=== PATIENT | female | born 1950 | race Caucasian/White ===

== ENCOUNTER 2017-02-09 17:26 | Inpatient (IN) | payer OTHER, MEDICAID, MEDICARE ==
--- NOTE | 2017-02-09 20:05 | ED Physician Chart ---
Chief Complaint/HPI - Patient Information Date Seen:: 02/09/17 Time Seen:: 18:00 Chief Complaint:: Pt. presents with abd. pain and vomiting. Allergies:: Allergies Allergy/AdvReac Type Severity Reaction Status Date / Time No Known Allergies Allergy Verified 02/09/17 17:43 Vitals:: Vital Signs - 8 hr 02/09/17 02/09/17 17:43 18:54 Temp 100.1 F 100 F HR 132 141 RR 25 22 BP 106/76 100/75 O2 Sat % 96 96 Historian:: Patient, EMS Review of Systems - Review of Systems General/Constitutional: No fever Skin: Other (L knee wound appears bruised. Now incision is closed.) Head: No headache Neck: No neck pain Cardio Vascular: No chest pain, No palpitations Pulmonary: No SOB, No cough GI: No vomiting, Pain G/U: No dysuria Musculoskeletal: Bone or joint pain (L knee. 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 was also oon Levofloxacin and enalapril) Social History: Non Smoker, No Alcohol Surgical History: CABG, other (recent knee surg.. Pt. denies any abd. surg, " no mas la rodilla".) Medication: Reviewed (tylenol, diflucan, ms, zofran, percodet, pantoprazoleZosyn , vancomycin) Physical Exam - Physical Examination General/Constitutional: Awake, Well-developed, well-nourished Eyes: Lids, conjuctiva normal, PERRL, EOMI Other Skin comments:: L Knee bruising but closed along incision. No drainage. ENMT: External ears, nose nl Neck: Nontender, Full ROM w/o pain Respiratory: Nl effort/Exclusion, Clear to Auscultation, No Wheeze/Rhonchi/Rales Cardio Vascular: RRR, No murmur, gallop, rubs GI: No tenderness/rebounding/guarding : No CVA tenderness Other Extremities comments:: L knee incision closed. Neuro/Psych: Alert/oriented, Normal motor strength, Judgement/insight normal, No focal deficits Labs/Radiology/EKG Results - Lab Results Results: EKG sinus tach 136, LVH with L axis. No acute ST changes. CXR unremarkable. Pt. had vomiting. Zofran given. CBC shows WBC 16.9 with nl. H/H UA unremarkable. CT shows "distended GB". No was severe DJD, and 5 cm umbilical hernia. Cardiac Markers nl. Lactic Acid normal. Amylase and Lipase nl. PT = 12/3. {TT = 25/6 CMP shows BUN/creat = 32/1.1 US of GB technically difficult study, but no obvious stones. ED Septic Shock - . Is Septic Shock (SBP<90, OR Lactate>4 mmol\\L) present?: No - <6hrs of presentation: Vital Signs: Vital Signs - 8 hr 02/09/17 02/09/17 17:43 18:54 Temp 100.1 F 100 F HR 132 141 RR 25 22 BP 106/76 100/75 O2 Sat % 96 96 Assessment of Lungs: Lung CTA bilateral Assessment of Heart: RRR EKG Interpretation: No ST elevation Capillary refill evaluation: Capillary refill < 2 secs Skin Exam: Warm, Dry Comment: Pt. does have leukocytosis and tachycardia. US was not a good study secondary to gas. Reassessment (Disposition) - Reassessment Reassessment Condition:: Improved - Diagnosis Diagnosis:: Dx: Acute abdominal pain, leukocytosis and distended gall bladder, possible cholecystitis - Patient Disposition Discharge/Transfer:: Acute Care w/in this hosp Accepting Physician:: Dr. Thomas Time Called:: 2330 Time Responded:: 23:34 Discussion with Medical Provider:: Discussed 16.9 WBC and tachycardia. Gave dose of Zofran and Zosyn. will admit. He will call in orders. Condition at Disposition:: Critical ED Discharge Plan - Patient Disposition Admit/Discharge/Transfer: Acute Care w/in this hosp Condition at Disposition: Guarded
[2017-02-09] MEDS ORDERED: Sodium Chloride 0.9% 1,000 ML IV ONE (20:07)
[2017-02-09 20:42] LABS: HEMATOCRIT 44.1 % (35.0-45.0); HEMOGLOBIN 14.2 gm/dL (11.7-16.1); MEAN CELL VOLUME 84.7 fl (81-100); MEAN CORPUSCULAR HEMOGLOBIN 27.3 pg (27.0-31.0); MEAN CORPUSCULAR HGB CONC 32.3 pg (28.0-36.0); MEAN PLATELET VOLUME 8.4 fl; PLATELET COUNT 208 Th/cmm (150-400); RED CELL DISTRIBUTION WIDTH 18.2 % (11.5-20.0)
[2017-02-09 20:47] LABS: WHITE BLOOD COUNT 16.9 Th/cmm (4.8-10.8)
[2017-02-09 20:51] LABS: INR 1.17 (0.5-1.4); PROTHROMBIN TIME (TEST) 12.3 SECONDS (9.5-11.5)
[2017-02-09 20:58] LABS: ALB/GLOB RATIO 0.7 (1.0-1.8); ALKALINE PHOSPHATASE 227 U/L (34-104); AMYLASE SERUM 49 U/L (29-103); ANION GAP 17.7 (7.0-16.0); BILIRUBIN,TOTAL 0.9 mg/dL (0.3-1.0); BUN - UREA NITROGEN 32 mg/dL (7-25); BUN/CREATININE RATIO 29.1; CALCIUM SERUM 9.3 mg/dL (8.6-10.3); CARBON DIOXIDE 16.2 mEq/L (21.0-31.0); CHLORIDE 105 mEq/L (98-107); CREATININE - SERUM 1.1 mg/dL (0.6-1.2); GLUCOSE 118 mg/dL (70-105); LIPASE 22 U/L (11-82); POTASSIUM SERUM 3.9 mEq/L (3.5-5.1); SGOT 64 U/L (13-39); SGPT/ALT 23 U/L (7-52); SODIUM SERUM 135 mEq/L (136-145)
[2017-02-09 21:02] LABS: CREATINE KINASE MB 1.1 ng/mL (0.6-6.3)
[2017-02-09 21:21] LABS: BAND NEUTROPHILE 1 % (0-10); BASOPHIL 1 % (0-3); NEUTROPHILS 75 % (40-80); TOTAL CELLS COUNTED 100
[2017-02-09 21:22] LABS: PLATELET ESTIMATE ADEQUATE (NORMAL); PLATELET MORPHOLOGY NORMAL (NORMAL)
[2017-02-09] MEDS ORDERED: Piperacillin Sodium/Tazobact 3.375 gm Vial IV ONE (21:26)
[2017-02-09 22:06] LABS: URINE BILIRUBIN SMALL (NEGATIVE); URINE BLOOD NEGATIVE (NEGATIVE); URINE COLOR YELLOW; URINE GLUCOSE (UA) NEGATIVE (NEGATIVE); URINE KETONE TRACE mg/dL (NEGATIVE); URINE PH 5.5; URINE PROTEIN 30 mg/dL (NEGATIVE); URINE UROBILINOGEN 0.2 E.U./dL (0.2 - 1.0)
[2017-02-09 22:07] LABS: URINE AMORPHOUS SEDIMENT MODERATE URATES (NONE SEEN); URINE BACTERIA FEW /hpf (NONE SEEN); URINE EPITHELIAL CELLS OCCASIONAL /lpf (FEW); URINE HYALINE CAST 0-2 /lpf (0-2); URINE RBC NONE SEEN /hpf (0-5); URINE WBC 0-2 /hpf (0-5)
[2017-02-10] MEDS ORDERED: Morphine Sulfate 2 mg/mL 1mL Syr IM ONE (02:00)
--- NOTE | 2017-02-10 03:08 | Admit Criteria Form ---
Admit Criteria Forms - Admit Criteria Procedure: ABDOMINAL PAIN Clinical Indications for Admission to Inpatient Care (Place 'X' for any and all applicable criteria): Admission is indicated for ANY ONE of the following(1)(2)(3)(4)(5): [X]I. Inpatient admission required rather than observation care (Also use Abdominal Pain: Observation Care, as appropriate) because of ANY ONE of the following: [ ]a) Severe pain requiring acute inpatient management [ ]b) Identification of etiology/finding that requires inpatient care (eg, aortic dissection, free air) [ ]c) Absent bowel sounds with complete ileus(6) [ ]d) Suspected toxic megacolon [ ]e) Severe electrolyte abnormalities requiring inpatient care [ ]f) High fever or infection requiring inpatient admission as indicated by ANY ONE of following(7)(8): [ ] i) Appropriate outpatient or observational care antimicrobial treatment unavailable, not effective, or not feasible [ ] ii) Documented bacteremia [ ] iii) Temperature > 104.9 degrees F (oral) [ ] iv) T >103.1 F (oral) or < 96.8 F(rectal) that does not respond to all emergency treatment measures [ ]g) Signs of intestinal obstruction [B] [ ]h) Hemodynamic instability [ ]i) IV fluid to replace significant ongoing losses (greater than 3 L/m2 per day) (12)(13) [ ]j) Percutaneous or open drainage (eg, abscess, biliary tract ) procedures [ ]k) Parenteral nutrition regimen that must be implemented on inpatient basis [X]l) Other condition,treatment or monitoring requiring inpatient admission. [ ]II. Peritoneal signs present [ ]III. Surgery needed that cannot be performed on an ambulatory basis. [ ]IV. Evaluation requires patient to not eat or drink for extended period ( eg, more than 24 hours). [ ]V. Contraindications and/or Inappropriate clinical situations for Observational Care in patients with abdominal pain, when ANY ONE of the following is required: [ ]a) Thorough evaluation is required to prevent catastrophic events due to delays in diagnosing (e.g.Mesenteric ischemia) 1,3 [ ]b) Patient with severe pathology or with chronic symptoms unlikely to improve in the ED stay (3) [ ]. General contraindications and/or Inappropriate clinical situations for Observational Care in patients with abdominal pain, when ANY ONE of the following is required: [ ]a) Prediction of prolongation of LOS based on ANY ONE of the following may be considered as a contraindication for observational care 2, 3, 4, 5, 6, 7, 8, 9, 10, 11 [ ]i) Age > 65 yrs. [ ]ii) Patient arriving by ambulance [ ]iii) Patient with high acuity [ ]iv) Patient requiring vital sign monitoring [ ]v) Patient on IV medication [ ]b) Systolic blood pressures 180mmHg 3,12 [ ]c) Patient with altered mental status including delirium and other alteration of consciousness, (3) [ ]d) Patient whose discharge disposition will be to a halfway home or rehabilitation home should not be managed in Emergency Department Observation Unit. CMS rule requires 3 days hospital stay before such placement.3,13 [ ]e) Patient with failure to thrive due to broad array of etiologies 3,16,17 [ ]f) Inability to ambulate 3,14 Extended stay beyond goal length of stay may be needed for(2)(3): [ ]a) Persistent abdominal pain with suspected intra-abdominal process [ ]b) Diagnosed condition requiring continued stay (e.g., pancreatitis, complicated diverticulitis) [ ]c) Surgery (e.g., colectomy) The original [facility] content created by [employer] has been revised. The portions of the content which have been revised are identified through the use of italic text or in bold, and [facility] has neither reviewed nor approved the modified material.All other unmodified content is copyright [facility] [employer]. Please see references footnoted in the original [facility] edition 2016 Admit Criteria Met?: Yes
[2017-02-10 05:37] LABS: HEMOGLOBIN 12.9 gm/dL (11.7-16.1); MEAN CELL VOLUME 83.7 fl (81-100); MEAN CORPUSCULAR HEMOGLOBIN 27.9 pg (27.0-31.0); MEAN CORPUSCULAR HGB CONC 33.4 pg (28.0-36.0); MEAN PLATELET VOLUME 9.1 fl; PLATELET COUNT 206 Th/cmm (150-400); RED BLOOD COUNT 4.63 Mil/cmm (3.80-5.20); RED CELL DISTRIBUTION WIDTH 17.1 % (11.5-20.0)
[2017-02-10 05:47] LABS: HEMATOCRIT 38.8 % (35.0-45.0); WHITE BLOOD COUNT 14.7 Th/cmm (4.8-10.8)
[2017-02-10 05:53] LABS: ANION GAP 15.5 (7.0-16.0); BUN/CREATININE RATIO 27.5; CALCIUM SERUM 8.7 mg/dL (8.6-10.3); CARBON DIOXIDE 16.1 mEq/L (21.0-31.0); CREATININE - SERUM 1.2 mg/dL (0.6-1.2); POTASSIUM SERUM 3.6 mEq/L (3.5-5.1)
[2017-02-10 07:23] LABS: BAND NEUTROPHILE 4 % (0-10); NEUTROPHILS 67 % (40-80); TOTAL CELLS COUNTED 100
--- NOTE | 2017-02-10 08:36 | Diagnostic Imaging Report ---
CHEST X-RAY: AP view INDICATION: Pneumonia COMPARISON: None FINDINGS: Left basal subsegmental atelectasis versus scarring is noted. No focal consolidation or effusions. Heart size is normal. Tortuous aorta is noted. Degenerative changes of the spine are noted with scoliosis. IMPRESSION: Left basal subsegmental atelectasis versus scarring. No focal consolidation identified.
--- NOTE | 2017-02-10 09:04 | Diagnostic Imaging Report ---
CT abdomen and pelvis without intravenous contrast Indication: Abdominal pain, vomiting Comparison: Ultrasound abdomen the same day, Technique: Axial images were obtained from the lung bases to the bilateral proximal femurs without IV contrast. Coronal reconstructions were made. total DLP: 547, [id number] FINDINGS: Exam is limited due to motion. No evidence of focal hepatic, splenic, or pancreatic lesions. Pancreatic gland atrophy is noted. No focal adrenal lesions. There is a subcentimeter lesion arising from the anterior aspect of the left kidney too small characterize but probably representing a cyst. No hydronephrosis. No evidence of renal stones. Uterine calcification is noted. Moderate stool is seen throughout the colon. No evidence of appendicitis. There is a moderate size fat-containing hernia along the umbilical region. There is a 1 cm calcification along the left upper quadrant adjacent to bowel loops which may represent calcified lymph node. Moderate atherosclerotic vascular disease is noted. No evidence of free fluid or free air. Advanced degenerative changes of the spine are noted with scoliosis. IMPRESSION: Nonspecific fluid-filled loops of bowel without evidence of obstruction. Moderate size fat-containing hernia along the umbilical region. No evidence of hydronephrosis. Possible small right renal cyst, ultrasound would further clarify. Atherosclerotic vascular disease.
--- NOTE | 2017-02-10 09:43 | Diagnostic Imaging Report ---
Ultrasound abdomen HISTORY: Abdominal pain, nausea and vomiting COMPARISON: CT abdomen and pelvis on 02/09/2017 Technique: Sonography of the abdomen was performed in multiple planes. FINDINGS: Exam is limited due to bowel gas and body habitus. The liver demonstrates normal echogenicity with no evidence of focal lesions. The liver measures 16.6 cm. No evidence of gallstones or gallbladder wall thickening. The common bile duct measures 3 mm. Evaluation of the pancreas is limited due to bowel gas. The right kidney measures 11 cm. No evidence of focal lesions or hydronephrosis. The left kidney measures 11.5 cm. No evidence of focal lesions or hydronephrosis. The spleen measures 12.8 cm. IMPRESSION: No evidence of gallstones. Borderline gallbladder wall, nonspecific. No evidence of hydronephrosis. Borderline prominent spleen.
--- NOTE | 2017-02-10 12:34 | Consultation ---
Consult Note - Consult Note Service Date: 02/10/17 Consult Note: please see other consul
[2017-02-10 13:22] LABS: pH 7.51 (7.35-7.45)
[2017-02-10 13:23] LABS: HCO3 22.6 mEq/L (20.0-26.0)
[2017-02-10 13:24] LABS: ABG SOURCE Arterial; ALLEN TEST Positive; FIO2 21
[2017-02-10] MEDS: D5-0.45NS 1,000 ML IV SCH (14:15)
[2017-02-10] MEDS: Fluconazole 400mg/200mL 400 MG/200 ML BAG IV SCH (14:16)
--- NOTE | 2017-02-10 14:39 | Diagnostic Imaging Report ---
Nuclear medicine HIDA scan HISTORY: Distended gallbladder, abdominal pain nausea and vomiting COMPARISON: Ultrasound abdomen on 02/09/[address] abdomen and pelvis on 02/09/2017 Technique/procedure: 5.9 mCi of technetium labeled Choletec was administered intravenously and multiple scintigraphic images were obtained for up to 1 hour. FINDINGS: Prompt hepatic uptake is demonstrated. Gallbladder uptake is seen at 45 minutes. Small bowel uptake was seen at 45 minutes. IMPRESSION: No evidence of cholecystitis.
[2017-02-10] MEDS: Atorvastatin Calcium 10 MG TAB PO SCH (20:59)
[2017-02-10] MEDS ORDERED: Sodium Chloride 0.9% 250 ML IV ONE (21:18)
[2017-02-10] MEDS: Albumin 25% 25gm/100mL 50 GM/200 ML BTL IV SCH (22:11)
[2017-02-10] MEDS ORDERED: Norepinephrine 4 mg/4mL Vial IV ONE (23:35)
[2017-02-11] MEDS ORDERED: Norepinephrine 4 mg/4mL Vial IV ONE ×3 (02:29→06:09)
[2017-02-11] MEDS: D5-0.45NS 1,000 ML IV SCH (05:28)
[2017-02-11 08:19] LABS: HEMATOCRIT 32.3 % (35.0-45.0); MEAN CELL VOLUME 84.9 fl (81-100); MEAN CORPUSCULAR HEMOGLOBIN 28.3 pg (27.0-31.0); MEAN CORPUSCULAR HGB CONC 33.3 pg (28.0-36.0); MEAN PLATELET VOLUME 8.7 fl; PLATELET COUNT 200 Th/cmm (150-400); RED CELL DISTRIBUTION WIDTH 17.3 % (11.5-20.0); WHITE BLOOD COUNT 13.5 Th/cmm (4.8-10.8)
[2017-02-11 08:39] LABS: ALB/GLOB RATIO 1.1 (1.0-1.8); ANION GAP 16.1 (7.0-16.0); BILIRUBIN,TOTAL 1.3 mg/dL (0.3-1.0); BUN/CREATININE RATIO 24.7; CALCIUM SERUM 8.1 mg/dL (8.6-10.3); CARBON DIOXIDE 13.7 mEq/L (21.0-31.0); CREATININE - SERUM 1.5 mg/dL (0.6-1.2)
[2017-02-11 08:50] LABS: BAND NEUTROPHILE 3 % (0-10); NEUTROPHILS 78 % (40-80); PLATELET ESTIMATE ADEQUATE (NORMAL); TOTAL CELLS COUNTED 100
[2017-02-11 09:06] LABS: POTASSIUM SERUM 2.8 mEq/L (3.5-5.1)
[2017-02-11] MEDS ORDERED: Probiotic Screen MC PRN (09:14)
[2017-02-11 09:22] LABS: HEMOGLOBIN 10.8 gm/dL (11.7-16.1)
[2017-02-11] MEDS ORDERED: Sodium Bicarbonate 8.4% 50mEq PFS IVP ONE ×2 (09:23→11:08)
[2017-02-11] MEDS ORDERED: KCL 20mEq/100mL Premix 20 MEQ/100 ML PIGGYBACK IV ONE (09:24)
[2017-02-11] MEDS ORDERED: Potassium Chloride Elixir 20 mEq /15 mL UDC GT ONE (09:30)
[2017-02-11] MEDS ORDERED: Mag Sulfate 2gm/50mL Premix 2 GM/50 ML BAG IV ONE (09:35)
--- NOTE | 2017-02-11 09:36 | Diagnostic Imaging Report ---
CHEST X-RAY: AP view INDICATION: PICC line placement COMPARISON: 02/09/2017 FINDINGS: Right PICC line is in place with tip in SVC. Left basal scarring is noted. No focal consolidation or effusions. Borderline prominent heart is noted. IMPRESSION: Interval right PICC line placement with tip in SVC No focal consolidation identified.
--- NOTE | 2017-02-11 09:54 | History and Physical ---
History of Present Illness - HPI Chief Complaint: c/o abd pain and vomiting HPI: 66 year old feamle patient with h/o HTN, Dyslipidemia,anemia , recent knee wound infection s/p prosthesis presented with c/o abd pain and vomiting ,denies fever ,denies sob Vital Signs: Last Vital Signs Temp 97.5 F 02/11/17 04:00 Pulse 121 02/11/17 07:30 Resp 26 02/11/17 07:00 BP 90/70 02/11/17 07:30 Pulse Ox 97 02/11/17 07:00 Past Medical History Cardiovascular: Report: HTN (left knee prosthesis) Pulmonary: Report: No Pertinent Hx [employer] SPECIALIST: Report: No Pertinent Hx GI: Report: No Pertinent Hx Psych: Report: No Pertinent Hx Musculoskeletal: Report: No Pertinent Hx Rheumatologic: Report: No pertinent Hx Infectious Disease: Report: No Pertinent Hx Renal/: Report: No Pertinent Hx Endocrine: Report: No Pertinent Hx Dermatology: Report: No Pertinent Hx Other History: dyslipidemia , anemia Family Medical History - Family Member Mother History Unknown: Yes (denies) Social History Smoke: No Alcohol: None Drugs: None Lives: Other Domestic Violence: Negative - Medications Home Medications: Home Medication Medication Instructions Recorded Type APAP/Codeine 300 mg/30 mg [Tylenol 1 tab PO Q6HR PRN 02/09/17 History w/Codeine #3] Acetaminophen [Tylenol] 650 mg PO Q4HR PRN 02/09/17 History Ascorbic Acid [Vitamin C] 500 mg PO DAILY 02/09/17 History Atorvastatin Calcium [Lipitor] 10 mg PO HS 02/09/17 History Enalapril Maleate [Vasotec] 5 mg PO Q12H 02/09/17 History Hydrochlorothiazide 25 mg PO DAILY 02/09/17 History Hydrocodone/APAP 5mg/325mg [[place] 2 tab PO Q4H PRN 02/09/17 History 5mg/325mg] Magnesium Chloride [Magnesium Dr] 128 mg PO BID 02/09/17 History Multivitamin w/ Minerals 1 tab PO DAILY 02/09/17 History [Theragran M] OLANZapine [ZyPREXA] 7.5 mg PO DAILY 02/09/17 History Ondansetron HCl [Zofran*] 4 mg PO Q6H PRN 02/09/17 History Pantoprazole [Protonix] 40 mg PO DAILY 02/09/17 History Potassium Chloride ER [Klor-Con] 20 meq PO DAILY 02/09/17 History Protein Hydrolysate,Milk [Liquid 54 ml PO DAILY 02/09/17 History Protein Fortifier] Sennakot 2 tab PO DAILY 02/09/17 History Sodium Bicarbonate 650 mg PO BID 02/09/17 History - Allergies Allergies/Adverse Reactions: Allergies Allergy/AdvReac Type Severity Reaction Status Date / Time No Known Allergies Allergy Verified 02/09/17 17:43 Review of Systems - Review of Systems Constitutional: Report: No Significant Eyes: Report: No Significant ENT: Report: No Significant Respiratory: Report: No Significant Cardiovascular: Report: No Significant Gastrointestinal: Report: Nausea, Vomiting, Abdominal Pain Genitourinary: Report: No Significant Musculoskeletal: Report: No Significant Skin: Report: No Significant Neurological: Report: No Significant Physical Exam - Physical Exam HEENT: Report: Ears Nose Throat within normal limits Neck: Report: Within normal limits Cardiovascular Systems: Report: +s1/s2 noted Respiratory: Report: Breath Sounds are within normal limits Abdomen: Report: Non-tender to palpation Back: Report: Inspection of back is within normal limits.. Denies: Sacral Wound is noted with visible discharge. Extremities: Report: Non-tender to palpation. Skin: Report: Color of skin is within normal limits Neuro/Psych: Report: Mood affect is within normal limits - Lab Results All Lab Results last 24 hours: Laboratory Last Values WBC 13.5 Th/cmm (4.8-10.8) H 02/11/17 08:11 RBC 3.80 Mil/cmm (3.80-5.20) 02/11/17 08:11 Hgb 10.8 gm/dL (11.7-16.1) L D 02/11/17 08:11 Hct 32.3 % (35.0-45.0) L D 02/11/17 08:11 MCV 84.9 fl (81-100) 02/11/17 08:11 MCH 28.3 pg (27.0-31.0) 02/11/17 08:11 MCHC Differential 33.3 pg (28.0-36.0) 02/11/17 08:11 RDW 17.3 % (11.5-20.0) 02/11/17 08:11 Plt Count 200 Th/cmm (150-400) 02/11/17 08:11 MPV 8.7 fl 02/11/17 08:11 Band Neutrophils % 3 % (0-10) 02/11/17 08:11 Neutrophils (Manual) 78 % (40-80) 02/11/17 08:11 Lymphocytes 12 % (20-50) L 02/11/17 08:11 Monocytes 7 % (2-10) 02/11/17 08:11 Basophils 1 % (0-3) 02/09/17 20:27 Platelet Estimate ADEQUATE (NORMAL) 02/11/17 08:11 Platelet Morphology NORMAL (NORMAL) 02/09/17 20:27 PT 12.3 SECONDS (9.5-11.5) H 02/09/17 20:27 INR 1.17 (0.5-1.4) 02/09/17 20:27 PTT (Actin FS) 25.6 SECONDS (26.0-38.0) L 02/09/17 20:27 Specimen Source Arterial 02/10/17 12:58 Sample Site Right Radial 02/10/17 12:58 pH 7.51 (7.35-7.45) H 02/10/17 12:58 pCO2 23.0 mmHg (35.0-45.0) L* 02/10/17 12:58 pO2 80.0 mmHg (80.0-100.0) 02/10/17 12:58 HCO3 22.6 mEq/L (20.0-26.0) 02/10/17 12:58 Base Excess -3.0 mEq/L (-3.0-3.0) 02/10/17 12:58 O2 Saturation 97.0 % (92.0-100.0) 02/10/17 12:58 Robin Test Positive 02/10/17 12:58 Vent Rate NA 02/10/17 12:58 Inspired O2 21 02/10/17 12:58 Tidal Volume NA 02/10/17 12:58 PEEP NA 02/10/17 12:58 Pressure (ins/psv/peep) NA 02/10/17 12:58 Critical Value LZHANG 02/10/17 12:58 Sodium 132 mEq/L (136-145) L 02/11/17 08:11 Potassium 2.8 mEq/L (3.5-5.1) L* 02/11/17 08:11 Chloride 105 mEq/L (98-107) 02/11/17 08:11 Carbon Dioxide 13.7 mEq/L (21.0-31.0) L 02/11/17 08:11 Anion Gap 16.1 (7.0-16.0) H 02/11/17 08:11 BUN 37 mg/dL (7-25) H 02/11/17 08:11 Creatinine 1.5 mg/dL (0.6-1.2) H 02/11/17 08:11 Est GFR ( Amer) 44.8 ml/min (>90) 02/11/17 08:11 Est GFR (Non-Af Amer) 37.0 ml/min 02/11/17 08:11 BUN/Creatinine Ratio 24.7 02/11/17 08:11 Glucose 339 mg/dL (70-105) H 02/11/17 08:11 Hemoglobin A1c % 5.1 % (4.0-6.0) 02/11/17 08:11 Whole Bld Lactic Acid 1.52 mmol/L (0.60-1.99) 02/09/17 20:27 Calcium 8.1 mg/dL (8.6-10.3) L 02/11/17 08:11 Magnesium 1.6 mg/dL (1.9-2.7) L 02/11/17 08:11 Total Bilirubin 1.3 mg/dL (0.3-1.0) H 02/11/17 08:11 AST 36 U/L (13-39) 02/11/17 08:11 ALT 12 U/L (7-52) 02/11/17 08:11 Alkaline Phosphatase 123 U/L (34-104) H 02/11/17 08:11 Creatine Kinase 14 U/L (30-223) L 02/09/17 20:27 CK-MB (CK-2) 1.1 ng/mL (0.6-6.3) 02/09/17 20:27 Troponin I 0.01 ng/mL (0.01-0.05) 02/09/17 20:27 Total Protein 6.2 gm/dL (6.0-8.3) 02/11/17 08:11 Albumin 3.2 gm/dL (3.7-5.3) L 02/11/17 08:11 Globulin 3.0 gm/dL 02/11/17 08:11 Albumin/Globulin Ratio 1.1 (1.0-1.8) 02/11/17 08:11 Amylase 49 U/L (29-103) 02/09/17 20:27 Lipase 22 U/L (11-82) 02/09/17 20:27 Urine Source CATH 02/09/17 21:05 Urine Color YELLOW 02/09/17 21:05 Urine Clarity SLIGHT HAZY (CLEAR) 02/09/17 21:05 Urine pH 5.5 02/09/17 21:05 Ur Specific [place] 1.020 (1.005-1.030) 02/09/17 21:05 Urine Protein 30 mg/dL (NEGATIVE) H 02/09/17 21:05 Urine Glucose (UA) NEGATIVE mg/dL (NEGATIVE) 02/09/17 21:05 Urine Ketones TRACE mg/dL (NEGATIVE) 02/09/17 21:05 Urine Blood NEGATIVE (NEGATIVE) 02/09/17 21:05 Urine Nitrate NEGATIVE (NEGATIVE) 02/09/17 21:05 Urine Bilirubin SMALL (NEGATIVE) H 02/09/17 21:05 Urine Urobilinogen 0.2 E.U./dL (0.2 - 1.0) 02/09/17 21:05 Ur Leukocyte Esterase NEGATIVE (NEGATIVE) 02/09/17 21:05 Urine RBC NONE SEEN /hpf (0-5) 02/09/17 21:05 Urine WBC 0-2 /hpf (0-5) 02/09/17 21:05 Ur Epithelial Cells OCCASIONAL /lpf (FEW) 02/09/17 21:05 Amorphous Sediment MODERATE URATES (NONE SEEN) 02/09/17 21:05 Urine Bacteria FEW /hpf (NONE SEEN) 02/09/17 21:05 Hyaline Casts 0-2 /lpf (0-2) H 02/09/17 21:05 Laboratory Results - last 24 hr 02/10/17 02/10/17 02/11/17 04:30 12:58 08:11 WBC 13.5 H RBC 3.80 Hgb 10.8 L D Hct 32.3 L D MCV 84.9 MCH 28.3 MCHC Differential 33.3 RDW 17.3 Plt Count 200 MPV 8.7 Band Neutrophils % 3 Neutrophils (Manual) 78 Lymphocytes 12 L Monocytes 7 Platelet Estimate ADEQUATE Specimen Source Arterial Sample Site Right Radial pH 7.51 H pCO2 23.0 L* pO2 80.0 HCO3 22.6 Base Excess -3.0 O2 Saturation 97.0 Robin Test Positive Vent Rate NA Inspired O2 21 Tidal Volume NA PEEP NA Pressure (ins/psv/peep) NA Critical Value LZHANG Sodium Potassium Chloride Carbon Dioxide Anion Gap BUN Creatinine Est GFR ( Amer) Est GFR (Non-Af Amer) BUN/Creatinine Ratio Glucose Hemoglobin A1c % Calcium Magnesium 1.7 L Total Bilirubin AST ALT Alkaline Phosphatase Total Protein Albumin Globulin Albumin/Globulin Ratio 02/11/17 02/11/17 02/11/17 08:11 08:11 08:11 WBC RBC Hgb Hct MCV MCH MCHC Differential RDW Plt Count MPV Band Neutrophils % Neutrophils (Manual) Lymphocytes Monocytes Platelet Estimate Specimen Source Sample Site pH pCO2 pO2 HCO3 Base Excess O2 Saturation Robin Test Vent Rate Inspired O2 Tidal Volume PEEP Pressure (ins/psv/peep) Critical Value Sodium 132 L Potassium 2.8 L* Chloride 105 Carbon Dioxide 13.7 L Anion Gap 16.1 H BUN 37 H Creatinine 1.5 H Est GFR ( Amer) 44.8 Est GFR (Non-Af Amer) 37.0 BUN/Creatinine Ratio 24.7 Glucose 339 H Hemoglobin A1c % 5.1 Calcium 8.1 L Magnesium 1.6 L Total Bilirubin 1.3 H AST 36 ALT 12 Alkaline Phosphatase 123 H Total Protein 6.2 Albumin 3.2 L Globulin 3.0 Albumin/Globulin Ratio 1.1 - Assessment Assessment: Current Active Problems Problem Status Onset NAUSEA AND VOMITING WITH DEHYDRATION Acute leukocytosis distended gall bladder r/o chelocystitis trachycardia - Plan Plan: as per order sheet
[2017-02-11 10:02] LABS: pH 7.37 (7.35-7.45)
[2017-02-11 10:03] LABS: ABG SOURCE Arterial; ALLEN TEST YES; FIO2 28; HCO3 14.8 mEq/L (20.0-26.0)
--- NOTE | 2017-02-11 11:36 | Consultation ---
Consult Note - Consult Note Service Date: 02/11/17 Consult Note: PHYSICIAN Consultation Note: Date of Admission: 02/09/17 Purpose of Consultation: Chief Complaint: Patient AMANDA MALONE was admitted to location Intensive Care Unit with ABD.PAIN -DISTENDED GALL BLADDER-LEUKOCYTOSIS. History of Present Illness: 66 Y female with h/o htn, Anemia, had left knee prosthetic joint placement performed by Dr Cricket Carver in August 2016. It was complicated by wound dehiscence. Initially she was treated with oral antibiotics, but it never healed. She was admitted to the [facility] for further care. Dr Romero Plastic surgeon did the debridement and closure of the wound. She was transferred to the [facility] for prolongred antibiotic management. She received total 6 weeks of IV antibiotics. She was sent to snf for rehab on 7 days of levaquin po and diflucan. Her left wound grew only soraya at the [facility]. She did well so far. However, she developed nausea and vomiting for last 5 days. She was unable to keep anything by mouth. Ultimately, she was sent to [facility] for further care. On initial evaluation, her temperature was 100.1 degree F and WBC Count was 16, 900. She complains of left knee pain anteriorly. She denies any joint pain. There surgical incision wound is healing well. ID consult was called for further antibiotic management. Past Medical History: HTN, Anemia, Left TKR. 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 Diagnoses ELEVATED WHITE BLOOD CELL COUNT, UNSPECIFIED (02/09/17) UMBILICAL HERNIA WITHOUT OBSTRUCTION OR GANGRENE (02/09/17) CHOLECYSTITIS, UNSPECIFIED (02/09/17) UNSPECIFIED ABDOMINAL PAIN (02/09/17) Allergies Allergy/AdvReac Type Severity Reaction Status Date / Time No Known Allergies Allergy Verified 02/09/17 17:43 Vital Signs Temp 97.5 F 02/11/17 04:00 Pulse 121 02/11/17 07:30 Resp 26 02/11/17 07:00 BP 90/70 02/11/17 07:30 Pulse Ox 97 02/11/17 07:00 Intake & Output 02/10/17 02/11/17 02/11/17 18:59 06:59 18:59 Intake Total 510.790 0763.425 50 Output Total 4 600 Balance 973.249 3441.425 -550 Weight (lbs) 66.905 kg 66.905 kg 69.309 kg Intake: Intake, IV Amount 525.206 5677.425 D5-0.45NS 1,000 ml @ 75 1000 mls/hr IV .[id number] [facility] Rx #:[id number] Fluconazole 400mg/200mL 200.000 400 mg In 200 ml @ 100 mls/hr IV Q24HR [facility] Rx#: [id number] Norepinephrine 4 mg In 352.425 Dextrose 5% 250 ml @ Per Protocol IV TITR PRN Rx#: [id number] Piperacillin Sodium/ 100 100 Tazobact 4.5 gm In Sodium Chloride 0.9% 100 ml @ 100 mls/hr IV Q8HR [facility] Rx #:[id number] Oral 100 50 Output: Urine 600 Urine/Stool Mix 1 Emesis 3 Other: # Voids 3 4 # Bowel Movements 3 2 Laboratory Results - last 24 hr 02/10/17 02/10/17 02/11/17 04:30 12:58 08:11 WBC 13.5 H RBC 3.80 Hgb 10.8 L D Hct 32.3 L D MCV 84.9 MCH 28.3 MCHC Differential 33.3 RDW 17.3 Plt Count 200 MPV 8.7 Band Neutrophils % 3 Neutrophils (Manual) 78 Lymphocytes 12 L Monocytes 7 Platelet Estimate ADEQUATE Specimen Source Arterial Sample Site Right Radial pH 7.51 H pCO2 23.0 L* pO2 80.0 HCO3 22.6 Base Excess -3.0 O2 Saturation 97.0 Robin Test Positive Vent Rate NA Inspired O2 21 Tidal Volume NA PEEP NA Pressure (ins/psv/peep) NA Critical Value LZHANG Sodium Potassium Chloride Carbon Dioxide Anion Gap BUN Creatinine Est GFR ( Amer) Est GFR (Non-Af Amer) BUN/Creatinine Ratio Glucose Hemoglobin A1c % Calcium Magnesium 1.7 L Total Bilirubin AST ALT Alkaline Phosphatase Total Protein Albumin Globulin Albumin/Globulin Ratio 02/11/17 02/11/17 02/11/17 08:11 08:11 08:11 WBC RBC Hgb Hct MCV MCH MCHC Differential RDW Plt Count MPV Band Neutrophils % Neutrophils (Manual) Lymphocytes Monocytes Platelet Estimate Specimen Source Sample Site pH pCO2 pO2 HCO3 Base Excess O2 Saturation Robin Test Vent Rate Inspired O2 Tidal Volume PEEP Pressure (ins/psv/peep) Critical Value Sodium 132 L Potassium 2.8 L* Chloride 105 Carbon Dioxide 13.7 L Anion Gap 16.1 H BUN 37 H Creatinine 1.5 H Est GFR ( Amer) 44.8 Est GFR (Non-Af Amer) 37.0 BUN/Creatinine Ratio 24.7 Glucose 339 H Hemoglobin A1c % 5.1 Calcium 8.1 L Magnesium 1.6 L Total Bilirubin 1.3 H AST 36 ALT 12 Alkaline Phosphatase 123 H Total Protein 6.2 Albumin 3.2 L Globulin 3.0 Albumin/Globulin Ratio 1.1 02/11/17 09:40 WBC RBC Hgb Hct MCV MCH MCHC Differential RDW Plt Count MPV Band Neutrophils % Neutrophils (Manual) Lymphocytes Monocytes Platelet Estimate Specimen Source Arterial Sample Site Right Radial pH 7.37 pCO2 17.0 L* pO2 93.0 HCO3 14.8 L Base Excess -13.0 L O2 Saturation 97.0 Robin Test YES Vent Rate NA Inspired O2 28 Tidal Volume NA PEEP NA Pressure (ins/psv/peep) NA Critical Value E.CASAS Sodium Potassium Chloride Carbon Dioxide Anion Gap BUN Creatinine Est GFR ( Amer) Est GFR (Non-Af Amer) BUN/Creatinine Ratio Glucose Hemoglobin A1c % Calcium Magnesium Total Bilirubin AST ALT Alkaline Phosphatase Total Protein Albumin Globulin Albumin/Globulin Ratio Home Medication Medication Instructions Recorded Type APAP/Codeine 300 mg/30 mg [Tylenol 1 tab PO Q6HR PRN 02/09/17 History w/Codeine #3] Acetaminophen [Tylenol] 650 mg PO Q4HR PRN 02/09/17 History Ascorbic Acid [Vitamin C] 500 mg PO DAILY 02/09/17 History Atorvastatin Calcium [Lipitor] 10 mg PO HS 02/09/17 History Enalapril Maleate [Vasotec] 5 mg PO Q12H 02/09/17 History Hydrochlorothiazide 25 mg PO DAILY 02/09/17 History Hydrocodone/APAP 5mg/325mg [[place] 2 tab PO Q4H PRN 02/09/17 History 5mg/325mg] Magnesium Chloride [Magnesium Dr] 128 mg PO BID 02/09/17 History Multivitamin w/ Minerals 1 tab PO DAILY 02/09/17 History [Theragran M] OLANZapine [ZyPREXA] 7.5 mg PO DAILY 02/09/17 History Ondansetron HCl [Zofran*] 4 mg PO Q6H PRN 02/09/17 History Pantoprazole [Protonix] 40 mg PO DAILY 02/09/17 History Potassium Chloride ER [Klor-Con] 20 meq PO DAILY 02/09/17 History Protein Hydrolysate,Milk [Liquid 54 ml PO DAILY 02/09/17 History Protein Fortifier] Sennakot 2 tab PO DAILY 02/09/17 History Sodium Bicarbonate 650 mg PO BID 02/09/17 History Current Medications Generic Name Dose Route Start Last Admin Trade Name Freq PRN Reason Stop Dose Admin Acetaminophen 650 mg 02/10/17 15:22 Tylenol PO 04/11/17 15:21 Q4HR PRN TEMP >100 OR PAIN Acetaminophen/Codeine Phosphate 1 tab 02/10/17 15:22 Tylenol W/Codeine #3 PO 04/11/17 15:21 Q6HR PRN MODERATE PAIN Acetaminophen/Hydrocodone Bitart 2 tab 02/10/17 15:22 [place] 5mg/325mg PO 04/11/17 15:21 Q4H PRN Severe Pain Ascorbic Acid 500 mg 02/11/17 09:00 Vitamin C PO 04/12/17 08:59 DAILY [facility] Atorvastatin Calcium 10 mg 02/10/17 21:00 02/10/17 20:59 Lipitor PO 04/11/17 20:59 10 mg HS [facility] Administration Protocol Enalapril Maleate 5 mg 02/10/17 15:30 02/10/17 16:12 Vasotec PO 04/11/17 15:29 Not Given Q12H [facility] Hydrochlorothiazide 25 mg 02/11/17 09:00 Hctz PO 04/12/17 08:59 DAILY [facility] Fluconazole 400mg/200mL 400 mg in 200 mls @ 100 mls/hr 02/10/17 14:00 17:32 Diflucan IV 04/11/17 13:59 Infused Q24HR [facility] Infusion Piperacillin Sod/Tazobactam 100 mls @ 100 mls/hr 02/10/17 14:00 02/11/17 06: 04 Sod 4.5 gm/ Sodium Chloride IV 04/11/17 13:59 100 mls/hr Q8HR [facility] Administration Dextrose/Sodium Chloride 1,000 mls @ 75 mls/hr 02/10/17 13:42 02/11/17 05:28 D5-0.45ns IV 04/11/17 13:41 75 mls/hr .[id number] [facility] Administration Albumin Human 50 gm in 200 mls @ 50 mls/hr 02/10/17 21:30 02/10/17 22:11 Albuminar 25% IV 04/11/17 21:29 50 mls/hr 2XW [facility] Administration Norepinephrine Bitartrate 8 mg 258 mls @ 77.4 mls/hr 02/11/17 07:47 02/11/17 08:00 / Dextrose IV 04/12/17 07:46 40 mcg/min TITR PRN 77.4 mls/hr BP MAINTENANCE (PER PROTOCOL) Administration Protocol 40 MCG/MIN Potassium Chloride 20 meq in 100 mls @ 50 mls/hr 02/11/17 09:24 Potassium Chloride IV 02/11/17 11:23 X1 ONE Phenylephrine HCl 10 mg/ 250 mls @ 0 mls/hr 02/11/17 09:30 02/11/17 10:14 Sodium Chloride IV 04/12/17 09:29 10 mcg/min TITR [facility] 15 mls/hr Protocol Administration Per Protocol Magnesium Sulfate 2 gm in 50 mls @ 25 mls/hr 02/11/17 09:35 Magnesium Sulfate Premix IV 02/11/17 11:34 X1 ONE Sodium Bicarbonate 150 meq/ 1,150 mls @ 100 mls/hr 02/11/17 11:10 Dextrose IV 04/12/17 11:09 .[id number] [facility] Lactobacillus Rhamnosus 1 each 02/12/17 09:00 Culturelle PO 04/13/17 08:59 DAILY [facility] Miscellaneous 1 ea 02/11/17 09:14 Probiotic Screen MC 04/12/17 09:13 PRN PRN PROTOCOL Olanzapine 7.5 mg 02/11/17 09:00 Zyprexa PO 04/12/17 08:59 DAILY [facility] Protocol Ondansetron HCl 4 mg 02/10/17 08:24 02/11/17 10:41 Zofran IV 04/11/17 08:23 4 mg Q8H PRN Administration Nausea / Vomiting Pantoprazole Sodium 40 mg 02/11/17 09:00 Protonix PO 04/12/17 08:59 DAILY [facility] Sodium Bicarbonate 50 meq 02/11/17 11:08 Sodium Bicarb IVP 02/11/17 11:09 X1 ONE Review of Systems: A 12 point ROS was reviewed with the pertinent positive and negatives noted in the HPI. Social History Patient used live at home, since her last admission, she was lived at [place] [facility] for short time for rehab. Smoking Status Never smoker Drugs Never Alcohol Never. Family Medical History Unknown Yes Physical Exam: General: Comfortable, not in distress. No Acute Distress HEENT: Eyes: EOMI Bilaterally, PERRLA Bilaterally, Head :normocephalic, atraumatic on inspection. Oral cavity is moist, pink tongue. Cardio: +S1/S2 Auscultated, RRR, no murmurs/rubs/gallops noted Respiratory: Clear to Auscultate Bilaterally. Abdominal: Soft, Nondistended, Nontender to palpation x 4 quadrants. epigastric tenderness. Extremities: No Edema noted in the lower extremities. Left knee: there is no significant erythema, induration or discharge. There is swelling. The surgical incision is almost head, except very superficial wound at the lower end of the incision ( anteriorly to the crawford bone, without any discharge, erythema. (No sign of infection). Neurological: Alert and Oriented x3, Cranial Nerves II-XII intact bilaterally, No Focal Deficits noted. Assessment/Plan: 1. Septic shock. 2. Hypotension. Dehydration, sepsis. septic shock. 3. H/o HTN. 4. H/o Anemia. 5. Metabolic acidosis. 6. SU, ? ATN. 7. Small superficial leg wound at the distal end, no sign of infection. 8. hypokalemia. 9. H/O Left TKR. no clinical sign of infection. 10. Suspect aspiration pneumonia. Recommendations: Will give bolus NS 500 ml IV one dose. Antibiotic cheek, continue zosyn and diflucan. wound care. IV support. K supplementation. Labs in am. Follow up sepsis w/u. Thank you Dr Thomas for involving me in taking care of this patient. Signed, Zachary Salazar M.D. 02/11/[id number]
[2017-02-11] MEDS: Pantoprazole 40 mg EC Tab PO SCH (11:56)
--- NOTE | 2017-02-11 13:16 | Diagnostic Imaging Report ---
KUB single view HISTORY: Ileus. COMPARISON: None FINDINGS: Generalized gaseous filled loops of bowel are noted. NG tube is seen with tip in the stomach. Advanced degenerative changes of spine are noted with scoliosis. IMPRESSION: Generalized gaseous distended loops of bowel possibly representing a mild ileus. NG tube in the stomach.
--- NOTE | 2017-02-11 15:29 | Consultation ---
Consult Note - Consult Note Service Date: 02/11/17 Referring Physician: Nikki Thomas Consult Note: PHYSICIAN Consultation Note: Date of Admission: 02/09/17 Purpose of Consultation: Tachycardia Chief Complaint: Patient complaining of palpitations History of Present Illness: Patient AMANDA MALONE was admitted to location Intensive Care Unit with ABD.PAIN -DISTENDED GALL BLADDER-LEUKOCYTOSIS. Past Medical History: Hypertension acute renal failure Diagnoses SEPSIS, UNSPECIFIED ORGANISM (02/09/17) ANEMIA, UNSPECIFIED (02/09/17) HYPERLIPIDEMIA, UNSPECIFIED (02/09/17) DEHYDRATION (02/09/17) ACIDOSIS (02/09/17) HYPOKALEMIA (02/09/17) ESSENTIAL (PRIMARY) HYPERTENSION (02/09/17) PNEUMONITIS DUE TO INHALATION OF FOOD AND VOMIT (02/09/17) UMBILICAL HERNIA WITHOUT OBSTRUCTION OR GANGRENE (02/09/17) ILEUS, UNSPECIFIED (02/09/17) CHOLECYSTITIS, UNSPECIFIED (02/09/17) ACUTE KIDNEY FAILURE WITH TUBULAR NECROSIS (02/09/17) UNSPECIFIED ABDOMINAL PAIN (02/09/17) SEVERE SEPSIS WITH SEPTIC SHOCK (02/09/17) Allergies Allergy/AdvReac Type Severity Reaction Status Date / Time No Known Allergies Allergy Verified 02/09/17 17:43 Vital Signs Temp 97.5 F 02/11/17 04:00 Pulse 121 02/11/17 07:30 Resp 26 02/11/17 07:00 BP 90/70 02/11/17 07:30 Pulse Ox 97 02/11/17 07:00 Intake & Output 02/10/17 02/11/17 02/11/17 18:59 06:59 18:59 Intake Total 202.513 5456.425 904.88 Output Total 4 600 Balance 774.671 6830.425 304.88 Weight (lbs) 66.905 kg 66.905 kg 69.309 kg Intake: Intake, IV Amount 009.436 4136.425 854.88 D5-0.45NS 1,000 ml @ 75 1000 mls/hr IV .[id number] [facility] Rx #:[id number] Fluconazole 400mg/200mL 200.000 400 mg In 200 ml @ 100 mls/hr IV Q24HR [facility] Rx#: [id number] Norepinephrine 4 mg In 352.425 Dextrose 5% 250 ml @ Per Protocol IV TITR PRN Rx#: [id number] Norepinephrine 8 mg In 512.13 Dextrose 5% 250 ml @ 40 MCG/MIN 77.4 mls/hr IV TITR PRN Rx#:[id number] Phenylephrine HCl 10 mg 242.75 In Sodium Chloride 0.9% 250 ml @ Per Protocol IV TITR [facility] Rx#:[id number] Piperacillin Sodium/ 100 100 100 Tazobact 4.5 gm In Sodium Chloride 0.9% 100 ml @ 100 mls/hr IV Q8HR [facility] Rx #:[id number] Oral 100 50 Output: Urine 600 Urine/Stool Mix 1 Emesis 3 Other: # Voids 3 4 # Bowel Movements 3 2 Laboratory Results - last 24 hr 02/11/17 02/11/17 02/11/17 08:11 08:11 08:11 WBC 13.5 H RBC 3.80 Hgb 10.8 L D Hct 32.3 L D MCV 84.9 MCH 28.3 MCHC Differential 33.3 RDW 17.3 Plt Count 200 MPV 8.7 Band Neutrophils % 3 Neutrophils (Manual) 78 Lymphocytes 12 L Monocytes 7 Platelet Estimate ADEQUATE Specimen Source Sample Site pH pCO2 pO2 HCO3 Base Excess O2 Saturation Robin Test Vent Rate Inspired O2 Tidal Volume PEEP Pressure (ins/psv/peep) Critical Value Sodium 132 L Potassium 2.8 L* Chloride 105 Carbon Dioxide 13.7 L Anion Gap 16.1 H BUN 37 H Creatinine 1.5 H Est GFR ( Amer) 44.8 Est GFR (Non-Af Amer) 37.0 BUN/Creatinine Ratio 24.7 Glucose 339 H Hemoglobin A1c % Calcium 8.1 L Magnesium 1.6 L Total Bilirubin 1.3 H AST 36 ALT 12 Alkaline Phosphatase 123 H Total Protein 6.2 Albumin 3.2 L Globulin 3.0 Albumin/Globulin Ratio 1.1 02/11/17 02/11/17 08:11 09:40 WBC RBC Hgb Hct MCV MCH MCHC Differential RDW Plt Count MPV Band Neutrophils % Neutrophils (Manual) Lymphocytes Monocytes Platelet Estimate Specimen Source Arterial Sample Site Right Radial pH 7.37 pCO2 17.0 L* pO2 93.0 HCO3 14.8 L Base Excess -13.0 L O2 Saturation 97.0 Robin Test YES Vent Rate NA Inspired O2 28 Tidal Volume NA PEEP NA Pressure (ins/psv/peep) NA Critical Value E.CASAS Sodium Potassium Chloride Carbon Dioxide Anion Gap BUN Creatinine Est GFR ( Amer) Est GFR (Non-Af Amer) BUN/Creatinine Ratio Glucose Hemoglobin A1c % 5.1 Calcium Magnesium Total Bilirubin AST ALT Alkaline Phosphatase Total Protein Albumin Globulin Albumin/Globulin Ratio Home Medication Medication Instructions Recorded Type APAP/Codeine 300 mg/30 mg [Tylenol 1 tab PO Q6HR PRN 02/09/17 History w/Codeine #3] Acetaminophen [Tylenol] 650 mg PO Q4HR PRN 02/09/17 History Ascorbic Acid [Vitamin C] 500 mg PO DAILY 02/09/17 History Atorvastatin Calcium [Lipitor] 10 mg PO HS 02/09/17 History Enalapril Maleate [Vasotec] 5 mg PO Q12H 02/09/17 History Hydrochlorothiazide 25 mg PO DAILY 02/09/17 History Hydrocodone/APAP 5mg/325mg [[place] 2 tab PO Q4H PRN 02/09/17 History 5mg/325mg] Magnesium Chloride [Magnesium Dr] 128 mg PO BID 02/09/17 History Multivitamin w/ Minerals 1 tab PO DAILY 02/09/17 History [Theragran M] OLANZapine [ZyPREXA] 7.5 mg PO DAILY 02/09/17 History Ondansetron HCl [Zofran*] 4 mg PO Q6H PRN 02/09/17 History Pantoprazole [Protonix] 40 mg PO DAILY 02/09/17 History Potassium Chloride ER [Klor-Con] 20 meq PO DAILY 02/09/17 History Protein Hydrolysate,Milk [Liquid 54 ml PO DAILY 02/09/17 History Protein Fortifier] Sennakot 2 tab PO DAILY 02/09/17 History Sodium Bicarbonate 650 mg PO BID 02/09/17 History Current Medications Generic Name Dose Route Start Last Admin Trade Name Freq PRN Reason Stop Dose Admin Acetaminophen 650 mg 02/10/17 15:22 Tylenol PO 04/11/17 15:21 Q4HR PRN TEMP >100 OR PAIN Acetaminophen/Codeine Phosphate 1 tab 02/10/17 15:22 Tylenol W/Codeine #3 PO 04/11/17 15:21 Q6HR PRN MODERATE PAIN Acetaminophen/Hydrocodone Bitart 2 tab 02/10/17 15:22 [place] 5mg/325mg PO 04/11/17 15:21 Q4H PRN Severe Pain Ascorbic Acid 500 mg 02/11/17 09:00 02/11/17 11:56 Vitamin C PO 04/12/17 08:59 500 mg DAILY PAT[facility] Administration Atorvastatin Calcium 10 mg 02/10/17 21:00 02/10/17 20:59 Lipitor PO 04/11/17 20:59 10 mg HS [facility] Administration Protocol Enalapril Maleate 5 mg 02/10/17 15:30 02/10/17 16:12 Vasotec PO 04/11/17 15:29 Not Given Q12H [facility] Hydrochlorothiazide 25 mg 02/11/17 09:00 Hctz PO 04/12/17 08:59 DAILY [facility] Fluconazole 400mg/200mL 400 mg in 200 mls @ 100 mls/hr 02/10/17 14:00 17:32 Diflucan IV 04/11/17 13:59 Infused Q24HR [facility] Infusion Piperacillin Sod/Tazobactam 100 mls @ 100 mls/hr 02/10/17 14:00 02/11/17 13: 05 Sod 4.5 gm/ Sodium Chloride IV 04/11/17 13:59 100 mls/hr Q8HR [facility] Administration Dextrose/Sodium Chloride 1,000 mls @ 75 mls/hr 02/10/17 13:42 02/11/17 05:28 D5-0.45ns IV 04/11/17 13:41 75 mls/hr .[id number] [facility] Administration Albumin Human 50 gm in 200 mls @ 50 mls/hr 02/10/17 21:30 02/10/17 22:11 Albuminar 25% IV 04/11/17 21:29 50 mls/hr 2XW [facility] Administration Norepinephrine Bitartrate 8 mg 258 mls @ 77.4 mls/hr 02/11/17 07:47 02/11/17 15:17 / Dextrose IV 04/12/17 07:46 40 mcg/min TITR PRN 77.4 mls/hr BP MAINTENANCE (PER PROTOCOL) Administration Protocol 40 MCG/MIN Phenylephrine HCl 10 mg/ 250 mls @ 0 mls/hr 02/11/17 09:30 02/11/17 15:20 Sodium Chloride IV 04/12/17 09:29 40 mcg/min TITR [facility] 60 mls/hr Protocol Administration Per Protocol Sodium Bicarbonate 150 meq/ 1,150 mls @ 100 mls/hr 02/11/17 11:10 02/11/17 12 :23 Dextrose IV 04/12/17 11:09 100 mls/hr .[id number] [facility] Administration Lactobacillus Rhamnosus 1 each 02/12/17 09:00 Culturelle PO 04/13/17 08:59 DAILY [facility] Miscellaneous 1 ea 02/11/17 09:14 Probiotic Screen MC 04/12/17 09:13 PRN PRN PROTOCOL Olanzapine 7.5 mg 02/11/17 09:00 02/11/17 11:56 Zyprexa PO 04/12/17 08:59 7.5 mg DAILY [facility] Administration Protocol Ondansetron HCl 4 mg 02/10/17 08:24 02/11/17 10:41 Zofran IV 04/11/17 08:23 4 mg Q8H PRN Administration Nausea / Vomiting Pantoprazole Sodium 40 mg 02/11/17 09:00 02/11/17 11:56 Protonix PO 04/12/17 08:59 40 mg DAILY [facility] Administration Review of Systems: A 12 point ROS was reviewed with the pertinent positive and negatives noted in the HPI. Social History Smoking Status Never smoker Family Medical History Family Medical History Start: 02/10/17 00: 08 Freq: ONCE Status: Active Document 02/10/17 01:30 DEREJE (Rec: 02/10/17 03:14 SYSANJANA [id number]) Family Medical History Mother History Unknown Yes Physical Exam: General: Alert and Oriented x3, No Acute Distress HEENT: EOMI Bilaterally, PERRLA Bilaterally, Head is normocephalic, atraumatic on inspection. Cardio: +S1/S2 Auscultated, RRR, no murmurs/rubs/gallops noted Respiratory: Clear to Auscultate Bilaterally Abdominal: Soft, Nondistended, Nontender to palpation x 4 quadrants Genital/Urinary: Extremities: No Edema noted in the lower extremities Neurological: Cranial Nerves II-XII intact bilaterally, Gait Steady, No Focal Deficits noted. Assessment/Plan: 1. Septic shock. 2. Hypotension. Dehydration, sepsis. septic shock. 3. H/o HTN. 4. H/o Anemia. 5. Metabolic acidosis. 6. SU, ? ATN. 7. Small superficial leg wound at the distal end, no sign of infection. 8. hypokalemia. 9. H/O Left TKR. no clinical sign of infection. 10. Suspect aspiration pneumonia. Recommendations: Will give bolus NS 500 ml IV one dose. Add Levophed if patient continues to have hypotension Signed, Lowell Salazar T. [id number]
[2017-02-11] MEDS: Fluconazole 400mg/200mL 400 MG/200 ML BAG IV SCH (16:47)
[2017-02-11] MEDS: Multivitamin w/ Minerals Tab PO SCH (16:48)
[2017-02-11 17:31] LABS: pH 7.38 (7.35-7.45)
[2017-02-11 17:32] LABS: ABG SOURCE Arterial; BE(B) -11.2 mEq/L (-3.0-3.0); HCO3 16.2 mEq/L (20.0-26.0)
[2017-02-11 17:33] LABS: FIO2 28
[2017-02-11] MEDS: Hydrocodone/APAP 5mg/325mg Tab PO PRN (19:23)
[2017-02-11] MEDS: Atorvastatin Calcium 10 MG TAB PO SCH (20:57)
[2017-02-11] MEDS: Albumin 25% 25gm/100mL 50 GM/200 ML BTL IV SCH (21:50)
[2017-02-12] MEDS ORDERED: Ipratropium Neb 0.5 mg/2.5 mL UD HHN STA (03:31)
[2017-02-12] MEDS: APAP/Codeine 300 mg/30 mg Tab PO PRN ×2 (03:34→23:27)
[2017-02-12 05:23] LABS: HEMATOCRIT 30.2 % (35.0-45.0); HEMOGLOBIN 10.1 gm/dL (11.7-16.1); MEAN CELL VOLUME 84.4 fl (81-100); MEAN CORPUSCULAR HEMOGLOBIN 28.3 pg (27.0-31.0); MEAN CORPUSCULAR HGB CONC 33.5 pg (28.0-36.0); MEAN PLATELET VOLUME 9.1 fl; PLATELET COUNT 186 Th/cmm (150-400); RED BLOOD COUNT 3.58 Mil/cmm (3.80-5.20); RED CELL DISTRIBUTION WIDTH 17.2 % (11.5-20.0)
[2017-02-12 05:44] LABS: WHITE BLOOD COUNT 15.2 Th/cmm (4.8-10.8)
[2017-02-12 05:54] LABS: ALB/GLOB RATIO 1.4 (1.0-1.8); ANION GAP 16.2 (7.0-16.0); BILIRUBIN,TOTAL 1.1 mg/dL (0.3-1.0); BUN/CREATININE RATIO 22.1; CALCIUM SERUM 7.6 mg/dL (8.6-10.3); CARBON DIOXIDE 17.8 mEq/L (21.0-31.0); CREATININE - SERUM 1.4 mg/dL (0.6-1.2)
[2017-02-12 06:31] LABS: BAND NEUTROPHILE 4 % (0-10); NEUTROPHILS 76 % (40-80); PLATELET ESTIMATE ADEQUATE (NORMAL); TOTAL CELLS COUNTED 100
[2017-02-12] MEDS ORDERED: Potassium Chloride Elixir 20 mEq /15 mL UDC GT ONE (07:00)
[2017-02-12 09:22] LABS: ABG SOURCE Arterial; BE(B) -6.6 mEq/L (-3.0-3.0); FIO2 28; HCO3 19.8 mEq/L (20.0-26.0); pH 7.31 (7.35-7.45)
[2017-02-12 09:23] LABS: CRITICAL VALUES REPORTED BY PW
[2017-02-12] MEDS: Albuterol Nebulizer 2.5mg/3mL HHN PRN (09:26)
--- NOTE | 2017-02-12 09:49 | Diagnostic Imaging Report ---
Exam portable positioning chest. HISTORY: Pneumonia. Findings: Portable dictation of chest upright at 0738 hours reviewed for prior studies available comparison. The study demonstrates NG tube passes into stomach. There is evidence of congestion. Left lobe infiltrate and effusions are present. Bony thorax is intact. The right-sided PICC line terminates in superior vena cava. IMPRESSION 1. Congestive heart failure 2. Left lower lobe infiltrate and effusion follow-up initially recommended
[2017-02-12] MEDS ORDERED: Phenylephrine HCl 50 MG in Sodium Chloride 0.9% 250 ML IV SCH (10:21)
[2017-02-12] MEDS: Pantoprazole 40 mg EC Tab PO SCH (10:45)
[2017-02-12] MEDS: Lactobacillus Rhamnosus 10 Billion CFU Capsule PO SCH (10:45)
[2017-02-12] MEDS: Multivitamin w/ Minerals Tab PO SCH (10:47)
[2017-02-12] MEDS: Fluconazole 400mg/200mL 400 MG/200 ML BAG IV SCH (16:01)
[2017-02-12] MEDS: Atorvastatin Calcium 10 MG TAB PO SCH (20:23)
[2017-02-12] MEDS: Albumin 25% 25gm/100mL 50 GM/200 ML BTL IV SCH (21:13)
[2017-02-13 05:59] LABS: HEMOGLOBIN 9.6 gm/dL (11.7-16.1); MEAN CELL VOLUME 84.3 fl (81-100); MEAN CORPUSCULAR HGB CONC 33.2 pg (28.0-36.0); PLATELET COUNT 165 Th/cmm (150-400); RED BLOOD COUNT 3.44 Mil/cmm (3.80-5.20); RED CELL DISTRIBUTION WIDTH 17.2 % (11.5-20.0)
[2017-02-13 06:07] LABS: ALB/GLOB RATIO 1.7 (1.0-1.8); ANION GAP 12.4 (7.0-16.0); BILIRUBIN,TOTAL 1.4 mg/dL (0.3-1.0); BUN/CREATININE RATIO 19.3; CALCIUM SERUM 7.6 mg/dL (8.6-10.3); CARBON DIOXIDE 27.6 mEq/L (21.0-31.0); CREATININE - SERUM 1.4 mg/dL (0.6-1.2)
[2017-02-13 06:10] LABS: WHITE BLOOD COUNT 13.5 Th/cmm (4.8-10.8)
[2017-02-13 06:57] LABS: BAND NEUTROPHILE 4 % (0-10); NEUTROPHILS 72 % (40-80); PLATELET ESTIMATE ADEQUATE (NORMAL); TOTAL CELLS COUNTED 100
[2017-02-13] MEDS: Albuterol Nebulizer 2.5mg/3mL HHN PRN ×2 (07:23→13:48)
[2017-02-13] MEDS: Lactobacillus Rhamnosus 10 Billion CFU Capsule PO SCH (09:47)
[2017-02-13] MEDS: Multivitamin w/ Minerals Tab PO SCH (09:48)
[2017-02-13] MEDS: Pantoprazole 40 mg EC Tab PO SCH (09:50)
[2017-02-13] MEDS: KCL 20mEq/100mL Premix 40 MEQ/200 ML PIGGYBACK IV SCH ×2 (09:51→11:39)
--- NOTE | 2017-02-13 10:08 | General Progress Note ---
Subjective - Review of Systems Events since last encounter: no distress Objective - Results Result Diagrams: 02/13/17 05:03 02/13/17 05:03 Recent Labs: Laboratory Last Values WBC 13.5 Th/cmm (4.8-10.8) H 02/13/17 05:03 RBC 3.44 Mil/cmm (3.80-5.20) L 02/13/17 05:03 Hgb 9.6 gm/dL (11.7-16.1) L 02/13/17 05:03 Hct 29.0 % (35.0-45.0) L 02/13/17 05:03 MCV 84.3 fl (81-100) 02/13/17 05:03 MCH 28.0 pg (27.0-31.0) 02/13/17 05:03 MCHC Differential 33.2 pg (28.0-36.0) 02/13/17 05:03 RDW 17.2 % (11.5-20.0) 02/13/17 05:03 Plt Count 165 Th/cmm (150-400) 02/13/17 05:03 MPV 10.0 fl 02/13/17 05:03 Band Neutrophils % 4 % (0-10) 02/13/17 05:03 Neutrophils (Manual) 72 % (40-80) 02/13/17 05:03 Lymphocytes 17 % (20-50) L 02/13/17 05:03 Monocytes 8 % (2-10) 02/13/17 05:03 Basophils 1 % (0-3) 02/09/17 20:27 Platelet Estimate ADEQUATE (NORMAL) 02/13/17 05:03 Platelet Morphology NORMAL (NORMAL) 02/09/17 20:27 PT 12.3 SECONDS (9.5-11.5) H 02/09/17 20:27 INR 1.17 (0.5-1.4) 02/09/17 20:27 PTT (Actin FS) 25.6 SECONDS (26.0-38.0) L 02/09/17 20:27 Specimen Source Arterial 02/12/17 09:13 Sample Site LB 02/12/17 09:13 pH 7.31 (7.35-7.45) L 02/12/17 09:13 pCO2 38.0 mmHg (35.0-45.0) 02/12/17 09:13 pO2 92.0 mmHg (80.0-100.0) 02/12/17 09:13 HCO3 19.8 mEq/L (20.0-26.0) L 02/12/17 09:13 Base Excess -6.6 mEq/L (-3.0-3.0) L 02/12/17 09:13 O2 Saturation 96.0 % (92.0-100.0) 02/12/17 09:13 Robin Test NA 02/11/17 17:10 Vent Rate NA 02/11/17 17:10 Inspired O2 28 02/12/17 09:13 Tidal Volume NA 02/11/17 17:10 PEEP NA 02/11/17 17:10 Pressure (ins/psv/peep) NA 02/11/17 17:10 Critical Value PW 02/12/17 09:13 Sodium 136 mEq/L (136-145) 02/13/17 05:03 Potassium 3.0 mEq/L (3.5-5.1) L 02/13/17 05:03 Chloride 99 mEq/L (98-107) 02/13/17 05:03 Carbon Dioxide 27.6 mEq/L (21.0-31.0) 02/13/17 05:03 Anion Gap 12.4 (7.0-16.0) 02/13/17 05:03 BUN 27 mg/dL (7-25) H 02/13/17 05:03 Creatinine 1.4 mg/dL (0.6-1.2) H 02/13/17 05:03 Est GFR ( Amer) 48.5 ml/min (>90) 02/13/17 05:03 Est GFR (Non-Af Amer) 40.1 ml/min 02/13/17 05:03 BUN/Creatinine Ratio 19.3 02/13/17 05:03 Glucose 170 mg/dL (70-105) H 02/13/17 05:03 POC Glucose 170 MG/DL (70 - 105) H 02/12/17 09:42 Hemoglobin A1c % 5.1 % (4.0-6.0) 02/11/17 08:11 Whole Bld Lactic Acid 1.52 mmol/L (0.60-1.99) 02/09/17 20:27 Calcium 7.6 mg/dL (8.6-10.3) L 02/13/17 05:03 Magnesium 2.0 mg/dL (1.9-2.7) 02/12/17 04:41 Total Bilirubin 1.4 mg/dL (0.3-1.0) H 02/13/17 05:03 AST 126 U/L (13-39) H 02/13/17 05:03 ALT 26 U/L (7-52) 02/13/17 05:03 Alkaline Phosphatase 110 U/L (34-104) H 02/13/17 05:03 Creatine Kinase 67 U/L (30-223) 02/12/17 04:41 CK-MB (CK-2) 1.1 ng/mL (0.6-6.3) 02/09/17 20:27 Troponin I 0.01 ng/mL (0.01-0.05) 02/09/17 20:27 B-Natriuretic Peptide 3670.0 pg/mL (5.0-100.0) H 02/13/17 05:03 Total Protein 5.9 gm/dL (6.0-8.3) L 02/13/17 05:03 Albumin 3.7 gm/dL (3.7-5.3) 02/13/17 05:03 Globulin 2.2 gm/dL 02/13/17 05:03 Albumin/Globulin Ratio 1.7 (1.0-1.8) 02/13/17 05:03 Amylase 23 U/L (29-103) L 02/13/17 05:03 Lipase 13 U/L (11-82) 02/13/17 05:03 Urine Source CATH 02/09/17 21:05 Urine Color YELLOW 02/09/17 21:05 Urine Clarity SLIGHT HAZY (CLEAR) 02/09/17 21:05 Urine pH 5.5 02/09/17 21:05 Ur Specific [place] 1.020 (1.005-1.030) 02/09/17 21:05 Urine Protein 30 mg/dL (NEGATIVE) H 02/09/17 21:05 Urine Glucose (UA) NEGATIVE mg/dL (NEGATIVE) 02/09/17 21:05 Urine Ketones TRACE mg/dL (NEGATIVE) 02/09/17 21:05 Urine Blood NEGATIVE (NEGATIVE) 02/09/17 21:05 Urine Nitrate NEGATIVE (NEGATIVE) 02/09/17 21:05 Urine Bilirubin SMALL (NEGATIVE) H 02/09/17 21:05 Urine Urobilinogen 0.2 E.U./dL (0.2 - 1.0) 02/09/17 21:05 Ur Leukocyte Esterase NEGATIVE (NEGATIVE) 02/09/17 21:05 Urine RBC NONE SEEN /hpf (0-5) 02/09/17 21:05 Urine WBC 0-2 /hpf (0-5) 02/09/17 21:05 Ur Epithelial Cells OCCASIONAL /lpf (FEW) 02/09/17 21:05 Amorphous Sediment MODERATE URATES (NONE SEEN) 02/09/17 21:05 Urine Bacteria FEW /hpf (NONE SEEN) 02/09/17 21:05 Hyaline Casts 0-2 /lpf (0-2) H 02/09/17 21:05 Stool Leukocyte NO WBC SEEN 02/12/17 00:05 - Physical Exam Vitals and I&O: Vital Signs Temp 96.9 F 02/13/17 04:00 Pulse 127 02/13/17 07:49 Resp 17 02/13/17 07:24 BP 107/77 02/13/17 09:48 Pulse Ox 97 02/13/17 07:52 Intake & Output 02/12/17 02/13/17 02/13/17 18:59 06:59 18:59 Intake Total 2102.667 2543.688 Output Total 300 500 Balance 1739.458 7436.688 Weight (lbs) 71.668 kg 75.75 kg Intake: Intake, IV Amount 2001.667 2543.688 Albumin 25% 25gm/100mL 50 200 gm In 200 ml @ 50 mls/hr IV 2XW [facility] Rx#:[id number] Fluconazole 400mg/200mL 200 400 mg In 200 ml @ 100 mls/hr IV Q24HR [facility] Rx#: [id number] Norepinephrine 8 mg In 516 733.688 Dextrose 5% 250 ml @ 40 MCG/MIN 77.4 mls/hr IV TITR PRN Rx#:[id number] Phenylephrine HCl 10 mg 250 In Sodium Chloride 0.9% 250 ml @ Per Protocol IV TITR [facility] Rx#:[id number] Piperacillin Sodium/ 100 200 Tazobact 4.5 gm In Sodium Chloride 0.9% 100 ml @ 100 mls/hr IV Q8HR [facility] Rx #:[id number] Sodium Bicarbonate 8.4% 317.023 7604 150 meq In Dextrose 5% 1, 000 ml @ 100 mls/hr IV . [id number] [facility] Rx#:[id number] Other 100 Output: Urine 300 500 Other: # Bowel Movements 1 0 Active Medications: Current Medications Acetaminophen (Tylenol) 650 mg PO Q4HR PRN PRN Reason: TEMP >100 OR PAIN Stop: 04/11/17 15:21 Acetaminophen/Codeine Phosphate (Tylenol W/Codeine #3) 1 tab PO Q6HR PRN PRN Reason: MODERATE PAIN Stop: 04/11/17 15:21 Last Admin: 02/12/17 23:27 Dose: 1 tab Acetaminophen/Hydrocodone Bitart ([place] 5mg/325mg) 2 tab PO Q4H PRN PRN Reason: Severe Pain Stop: 04/11/17 15:21 Last Admin: 02/11/17 19:23 Dose: 2 tab Albuterol Sulfate (Albuterol 2.5mg/3ml Neb Ud) 2.5 mg HHN Q4HRT PRN PRN Reason: Wheezing Stop: 04/13/17 08:21 Last Admin: 02/13/17 07:23 Dose: 2.5 mg Ascorbic Acid (Vitamin C) 500 mg PO DAILY [facility] Stop: 04/12/17 08:59 Last Admin: 02/13/17 09:48 Dose: 500 mg Atorvastatin Calcium (Lipitor) 10 mg PO HS [facility] PRN Reason: Protocol Stop: 04/11/17 20:59 Last Admin: 02/12/17 20:23 Dose: 10 mg Furosemide (Lasix) 40 mg IVP BID [facility] Stop: 04/14/17 08:59 Last Admin: 02/13/17 09:48 Dose: 40 mg Hydrochlorothiazide (Hctz) 25 mg PO DAILY [facility] Stop: 04/12/17 08:59 Last Admin: 02/12/17 09:56 Dose: Not Given Fluconazole 400mg/200mL (Diflucan) 400 mg in 200 mls @ 100 mls/hr IV Q24HR [facility] Stop: 04/11/17 13:59 Last Infusion: 02/12/17 18:44 Dose: Infused Piperacillin Sod/Tazobactam (Sod 4.5 gm/ Sodium Chloride) 100 mls @ 100 mls/hr IV Q8HR [facility] Stop: 04/11/17 13:59 Last Infusion: 02/13/17 05:51 Dose: Infused Albumin Human (Albuminar 25%) 50 gm in 200 mls @ 50 mls/hr IV 2XW [facility] Stop: 04/11/17 21:29 Last Infusion: 02/13/17 01:13 Dose: Infused Norepinephrine Bitartrate 8 mg (/ Dextrose) 258 mls @ 77.4 mls/hr IV TITR PRN; Protocol; 40 MCG/MIN PRN Reason: BP MAINTENANCE (PER PROTOCOL) Stop: 04/12/17 07:46 Last Admin: 02/13/17 05:42 Dose: 30 mcg/min, 58.05 mls/hr Potassium Chloride (Potassium Chloride) 40 meq in 200 mls @ 50 mls/hr IV Q2H [facility] Stop: 02/13/17 12:59 Last Admin: 02/13/17 09:51 Dose: 50 mls/hr Lactobacillus Rhamnosus (Culturelle) 1 each PO DAILY [facility] Stop: 04/13/17 08:59 Last Admin: 02/13/17 09:47 Dose: 1 each Miscellaneous (Probiotic Screen) 1 ea MC PRN PRN PRN Reason: PROTOCOL Stop: 04/12/17 09:13 Olanzapine (Zyprexa) 7.5 mg PO DAILY [facility] PRN Reason: Protocol Stop: 04/12/17 08:59 Last Admin: 02/13/17 09:48 Dose: 7.5 mg Ondansetron HCl (Zofran) 4 mg IV Q8H PRN PRN Reason: Nausea / Vomiting Stop: 04/11/17 08:23 Last Admin: 02/12/17 00:59 Dose: 4 mg Pantoprazole Sodium (Protonix) 40 mg PO DAILY [facility] Stop: 04/12/17 08:59 Last Admin: 02/13/17 09:50 Dose: 40 mg General: No acute distress HEENT: Atraumatic Cardiovascular: Regular rate Assessment/Plan - Problem List Patient Problems: All Active Problems NAUSEA AND VOMITING WITH DEHYDRATION (Acute) - Assessment Assessment: Current Active Problems Problem Status Onset NAUSEA AND VOMITING WITH DEHYDRATION Acute leukocytosis distended gall bladder r/o chelocystitis trachycardia - Plan Plan: as per order sheet
[2017-02-13 10:13] LABS: ABG SOURCE Arterial; ALLEN TEST PASS; BE(B) 0.8 mEq/L (-3.0-3.0); FIO2 21; HCO3 25.4 mEq/L (20.0-26.0); pH 7.39 (7.35-7.45)
--- NOTE | 2017-02-13 10:20 | Diagnostic Imaging Report ---
Exam: Portable chest x-ray HISTORY: Shortness of breath Findings: Portable upright examination of the chest at the 02/13/2017 reviewed the study compared to the previous one day prior demonstrates NG tube passes into the stomach. There is evidence of mild congestion. Blunting left costophrenic angle most likely related to effusion pneumonia excluded follow-up patient recommended. Bony thorax is intact. IMPRESSION: 1. Congestive heart failure left base atelectasis versus infiltrate with superimposed small effusion. Follow-up examination recommended
--- NOTE | 2017-02-13 14:05 | Infectious Disease Prog Note ---
Infectious Disease Subjective - Review of Systems Service Date: 02/13/17 Subjective: There is no new change, no fever. Remains on levophed. CXr showed congestion. Lasix given and IV fluid was stopped. Infectious Disease Objective - Results Result Diagrams: 02/13/17 05:03 02/13/17 05:03 Recent Labs: Laboratory Last Values WBC 13.5 Th/cmm (4.8-10.8) H 02/13/17 05:03 RBC 3.44 Mil/cmm (3.80-5.20) L 02/13/17 05:03 Hgb 9.6 gm/dL (11.7-16.1) L 02/13/17 05:03 Hct 29.0 % (35.0-45.0) L 02/13/17 05:03 MCV 84.3 fl (81-100) 02/13/17 05:03 MCH 28.0 pg (27.0-31.0) 02/13/17 05:03 MCHC Differential 33.2 pg (28.0-36.0) 02/13/17 05:03 RDW 17.2 % (11.5-20.0) 02/13/17 05:03 Plt Count 165 Th/cmm (150-400) 02/13/17 05:03 MPV 10.0 fl 02/13/17 05:03 Band Neutrophils % 4 % (0-10) 02/13/17 05:03 Neutrophils (Manual) 72 % (40-80) 02/13/17 05:03 Lymphocytes 17 % (20-50) L 02/13/17 05:03 Monocytes 8 % (2-10) 02/13/17 05:03 Basophils 1 % (0-3) 02/09/17 20:27 Platelet Estimate ADEQUATE (NORMAL) 02/13/17 05:03 Platelet Morphology NORMAL (NORMAL) 02/09/17 20:27 PT 12.3 SECONDS (9.5-11.5) H 02/09/17 20:27 INR 1.17 (0.5-1.4) 02/09/17 20:27 PTT (Actin FS) 25.6 SECONDS (26.0-38.0) L 02/09/17 20:27 Specimen Source Arterial 02/13/17 09:32 Sample Site Right Radial 02/13/17 09:32 pH 7.39 (7.35-7.45) 02/13/17 09:32 pCO2 43.0 mmHg (35.0-45.0) 02/13/17 09:32 pO2 59.0 mmHg (80.0-100.0) L 02/13/17 09:32 HCO3 25.4 mEq/L (20.0-26.0) 02/13/17 09:32 Base Excess 0.8 mEq/L (-3.0-3.0) 02/13/17 09:32 O2 Saturation 90.0 % (92.0-100.0) L 02/13/17 09:32 Robin Test PASS 02/13/17 09:32 Vent Rate NA 02/11/17 17:10 Inspired O2 21 02/13/17 09:32 Tidal Volume NA 02/11/17 17:10 PEEP NA 02/11/17 17:10 Pressure (ins/psv/peep) NA 02/11/17 17:10 Critical Value [facility] 02/13/17 09:32 Sodium 136 mEq/L (136-145) 02/13/17 05:03 Potassium 3.0 mEq/L (3.5-5.1) L 02/13/17 05:03 Chloride 99 mEq/L (98-107) 02/13/17 05:03 Carbon Dioxide 27.6 mEq/L (21.0-31.0) 02/13/17 05:03 Anion Gap 12.4 (7.0-16.0) 02/13/17 05:03 BUN 27 mg/dL (7-25) H 02/13/17 05:03 Creatinine 1.4 mg/dL (0.6-1.2) H 02/13/17 05:03 Est GFR ( Amer) 48.5 ml/min (>90) 02/13/17 05:03 Est GFR (Non-Af Amer) 40.1 ml/min 02/13/17 05:03 BUN/Creatinine Ratio 19.3 02/13/17 05:03 Glucose 170 mg/dL (70-105) H 02/13/17 05:03 POC Glucose 170 MG/DL (70 - 105) H 02/12/17 09:42 Hemoglobin A1c % 5.1 % (4.0-6.0) 02/11/17 08:11 Whole Bld Lactic Acid 1.52 mmol/L (0.60-1.99) 02/09/17 20:27 Calcium 7.6 mg/dL (8.6-10.3) L 02/13/17 05:03 Magnesium 2.0 mg/dL (1.9-2.7) 02/12/17 04:41 Total Bilirubin 1.4 mg/dL (0.3-1.0) H 02/13/17 05:03 AST 126 U/L (13-39) H 02/13/17 05:03 ALT 26 U/L (7-52) 02/13/17 05:03 Alkaline Phosphatase 110 U/L (34-104) H 02/13/17 05:03 Creatine Kinase 67 U/L (30-223) 02/12/17 04:41 CK-MB (CK-2) 1.1 ng/mL (0.6-6.3) 02/09/17 20:27 Troponin I 0.01 ng/mL (0.01-0.05) 02/09/17 20:27 B-Natriuretic Peptide 3670.0 pg/mL (5.0-100.0) H 02/13/17 05:03 Total Protein 5.9 gm/dL (6.0-8.3) L 02/13/17 05:03 Albumin 3.7 gm/dL (3.7-5.3) 02/13/17 05:03 Globulin 2.2 gm/dL 02/13/17 05:03 Albumin/Globulin Ratio 1.7 (1.0-1.8) 02/13/17 05:03 Amylase 23 U/L (29-103) L 02/13/17 05:03 Lipase 13 U/L (11-82) 02/13/17 05:03 Urine Source CATH 02/09/17 21:05 Urine Color YELLOW 02/09/17 21:05 Urine Clarity SLIGHT HAZY (CLEAR) 02/09/17 21:05 Urine pH 5.5 02/09/17 21:05 Ur Specific [place] 1.020 (1.005-1.030) 02/09/17 21:05 Urine Protein 30 mg/dL (NEGATIVE) H 02/09/17 21:05 Urine Glucose (UA) NEGATIVE mg/dL (NEGATIVE) 02/09/17 21:05 Urine Ketones TRACE mg/dL (NEGATIVE) 02/09/17 21:05 Urine Blood NEGATIVE (NEGATIVE) 02/09/17 21:05 Urine Nitrate NEGATIVE (NEGATIVE) 02/09/17 21:05 Urine Bilirubin SMALL (NEGATIVE) H 02/09/17 21:05 Urine Urobilinogen 0.2 E.U./dL (0.2 - 1.0) 02/09/17 21:05 Ur Leukocyte Esterase NEGATIVE (NEGATIVE) 02/09/17 21:05 Urine RBC NONE SEEN /hpf (0-5) 02/09/17 21:05 Urine WBC 0-2 /hpf (0-5) 02/09/17 21:05 Ur Epithelial Cells OCCASIONAL /lpf (FEW) 02/09/17 21:05 Amorphous Sediment MODERATE URATES (NONE SEEN) 02/09/17 21:05 Urine Bacteria FEW /hpf (NONE SEEN) 02/09/17 21:05 Hyaline Casts 0-2 /lpf (0-2) H 02/09/17 21:05 Stool Leukocyte NO WBC SEEN 02/12/17 00:05 - Physical Exam Vitals and I&O: Vital Signs Temp 96.9 F 02/13/17 04:00 Pulse 129 02/13/17 13:49 Resp 26 02/13/17 13:49 BP 107/77 02/13/17 09:48 Pulse Ox 99 02/13/17 13:49 Intake & Output 02/12/17 02/13/17 02/13/17 18:59 06:59 18:59 Intake Total 2102.667 2543.688 348 Output Total 300 500 Balance 2016.099 9963.688 348 Weight (lbs) 71.668 kg 75.75 kg Intake: Intake, IV Amount 2001.667 2543.688 348 Albumin 25% 25gm/100mL 50 200 gm In 200 ml @ 50 mls/hr IV 2XW [facility] Rx#:[id number] Fluconazole 400mg/200mL 200 400 mg In 200 ml @ 100 mls/hr IV Q24HR [facility] Rx#: [id number] KCL 20mEq/100mL Premix 40 90 meq In 200 ml @ 50 mls/ hr IV Q2H [facility] Rx#: [id number] Norepinephrine 8 mg In 516 733.688 258 Dextrose 5% 250 ml @ 40 MCG/MIN 77.4 mls/hr IV TITR PRN Rx#:[id number] Phenylephrine HCl 10 mg 250 In Sodium Chloride 0.9% 250 ml @ Per Protocol IV TITR [facility] Rx#:[id number] Piperacillin Sodium/ 100 200 Tazobact 4.5 gm In Sodium Chloride 0.9% 100 ml @ 100 mls/hr IV Q8HR [facility] Rx #:[id number] Sodium Bicarbonate 8.4% 631.035 4758 150 meq In Dextrose 5% 1, 000 ml @ 100 mls/hr IV . [id number] [facility] Rx#:[id number] Other 100 Output: Urine 300 500 Other: # Bowel Movements 1 0 Active Medications: Current Medications Acetaminophen (Tylenol) 650 mg PO Q4HR PRN PRN Reason: TEMP >100 OR PAIN Stop: 04/11/17 15:21 Acetaminophen/Codeine Phosphate (Tylenol W/Codeine #3) 1 tab PO Q6HR PRN PRN Reason: MODERATE PAIN Stop: 04/11/17 15:21 Last Admin: 02/12/17 23:27 Dose: 1 tab Acetaminophen/Hydrocodone Bitart ([place] 5mg/325mg) 2 tab PO Q4H PRN PRN Reason: Severe Pain Stop: 04/11/17 15:21 Last Admin: 02/11/17 19:23 Dose: 2 tab Albuterol Sulfate (Albuterol 2.5mg/3ml Neb Ud) 2.5 mg HHN Q4HRT PRN PRN Reason: Wheezing Stop: 04/13/17 08:21 Last Admin: 02/13/17 13:48 Dose: 2.5 mg Ascorbic Acid (Vitamin C) 500 mg PO DAILY [facility] Stop: 04/12/17 08:59 Last Admin: 02/13/17 09:48 Dose: 500 mg Atorvastatin Calcium (Lipitor) 10 mg PO HS [facility] PRN Reason: Protocol Stop: 04/11/17 20:59 Last Admin: 02/12/17 20:23 Dose: 10 mg Furosemide (Lasix) 40 mg IVP BID [facility] Stop: 04/14/17 08:59 Last Admin: 02/13/17 09:48 Dose: 40 mg Hydrochlorothiazide (Hctz) 25 mg PO DAILY [facility] Stop: 04/12/17 08:59 Last Admin: 02/12/17 09:56 Dose: Not Given Fluconazole 400mg/200mL (Diflucan) 400 mg in 200 mls @ 100 mls/hr IV Q24HR [facility] Stop: 04/11/17 13:59 Last Infusion: 02/12/17 18:44 Dose: Infused Piperacillin Sod/Tazobactam (Sod 4.5 gm/ Sodium Chloride) 100 mls @ 100 mls/hr IV Q8HR [facility] Stop: 04/11/17 13:59 Last Infusion: 02/13/17 05:51 Dose: Infused Albumin Human (Albuminar 25%) 50 gm in 200 mls @ 50 mls/hr IV 2XW [facility] Stop: 04/11/17 21:29 Last Infusion: 02/13/17 01:13 Dose: Infused Norepinephrine Bitartrate 8 mg (/ Dextrose) 258 mls @ 77.4 mls/hr IV TITR PRN; Protocol; 40 MCG/MIN PRN Reason: BP MAINTENANCE (PER PROTOCOL) Stop: 04/12/17 07:46 Last Admin: 02/13/17 11:36 Dose: 30 mcg/min, 58.05 mls/hr Lactobacillus Rhamnosus (Culturelle) 1 each PO DAILY [facility] Stop: 04/13/17 08:59 Last Admin: 02/13/17 09:47 Dose: 1 each Methylprednisolone Sodium Succinate (Solu-Medrol) 20 mg IVP Q8HR [facility] Stop: 04/14/17 12:59 Miscellaneous (Probiotic Screen) 1 ea MC PRN PRN PRN Reason: PROTOCOL Stop: 04/12/17 09:13 Olanzapine (Zyprexa) 7.5 mg PO DAILY [facility] PRN Reason: Protocol Stop: 04/12/17 08:59 Last Admin: 02/13/17 09:48 Dose: 7.5 mg Ondansetron HCl (Zofran) 4 mg IV Q8H PRN PRN Reason: Nausea / Vomiting Stop: 04/11/17 08:23 Last Admin: 02/12/17 00:59 Dose: 4 mg Pantoprazole Sodium (Protonix) 40 mg PO DAILY [facility] Stop: 04/12/17 08:59 Last Admin: 02/13/17 09:50 Dose: 40 mg General: no acute distress, well developed, well nourished HEENT: atraumatic, normocephalic, PERRLA, EOMI Neck: supple, no thyromegaly Cardiovascular: S1S2, regular, no systolic murmur Lungs: no clear to auscultation bilaterally, no clear to percussion Abdomen: soft, no tender, no distended, no hepatomegaly, no splenomegaly Extremities: other (left Knee: no wound.), no cyanosis, no clubbing, no edema Neurological: awake, alert, oriented Skin: intact Infectious Disease Assmt/Plan - Problem List Patient Problems: All Active Problems NAUSEA AND VOMITING WITH DEHYDRATION (Acute) - Assessment Assessment: 1. Septic shock. 2. Hypotension. Dehydration, sepsis. septic shock. 3. H/o HTN. 4. H/o Anemia. 5. Metabolic acidosis, improved. 6. SU, ? ATN. 7. Small superficial leg wound at the distal end, no sign of infection. 8. hypokalemia. 9. H/O Left TKR. no clinical sign of infection. 10. Suspect aspiration pneumonia. Recommendations: Antibiotic cheek, continue zosyn and dc diflucan. wound care. IV support. K supplementation. Labs in am. Follow up sepsis w/u. DC NG tube. ( she is able to take by mouth and NG tube was bothering her, she wanted to take it out). Start PO as tolertated.
[2017-02-13] MEDS: methylPREDNISolone SS 40 mg Vial IVP SCH ×2 (14:45→20:47)
[2017-02-13] MEDS: Fluconazole 400mg/200mL 400 MG/200 ML BAG IV SCH (18:28)
[2017-02-13] MEDS: Atorvastatin Calcium 10 MG TAB PO SCH (20:48)
[2017-02-13] MEDS: Albumin 25% 25gm/100mL 50 GM/200 ML BTL IV SCH (22:45)
[2017-02-14] MEDS: APAP/Codeine 300 mg/30 mg Tab PO PRN (02:08)
[2017-02-14] MEDS ORDERED: Norepinephrine 4 mg/4mL Vial IV ONE ×3 (04:18→23:47)
[2017-02-14] MEDS ORDERED: Diltiazem 5 mg/mL 5mL Vial IVP STA (04:22)
[2017-02-14] MEDS: methylPREDNISolone SS 40 mg Vial IVP SCH ×3 (04:47→20:50)
[2017-02-14] MEDS ORDERED: Diltiazem 5 mg/mL 25mL Vial IV ONE (04:51)
[2017-02-14] MEDS: Albuterol Nebulizer 2.5mg/3mL HHN PRN ×3 (06:00→15:54)
[2017-02-14 06:11] LABS: HEMATOCRIT 28.8 % (35.0-45.0); HEMOGLOBIN 9.7 gm/dL (11.7-16.1); MEAN CELL VOLUME 84.4 fl (81-100); MEAN CORPUSCULAR HEMOGLOBIN 28.3 pg (27.0-31.0); MEAN CORPUSCULAR HGB CONC 33.6 pg (28.0-36.0); MEAN PLATELET VOLUME 9.1 fl; PLATELET COUNT 167 Th/cmm (150-400); RED BLOOD COUNT 3.42 Mil/cmm (3.80-5.20); RED CELL DISTRIBUTION WIDTH 17.9 % (11.5-20.0)
[2017-02-14 06:23] LABS: WHITE BLOOD COUNT 9.4 Th/cmm (4.8-10.8)
[2017-02-14 06:33] LABS: ALB/GLOB RATIO 1.5 (1.0-1.8); ANION GAP 26.1 (7.0-16.0); BILIRUBIN,TOTAL 2.1 mg/dL (0.3-1.0); BUN/CREATININE RATIO 16.7; CALCIUM SERUM 8.3 mg/dL (8.6-10.3); CARBON DIOXIDE 14.7 mEq/L (21.0-31.0); CREATININE - SERUM 1.8 mg/dL (0.6-1.2); POTASSIUM SERUM 3.8 mEq/L (3.5-5.1)
[2017-02-14 06:47] LABS: NEUTROPHILS 84 % (40-80); TOTAL CELLS COUNTED 100
[2017-02-14 06:48] LABS: PLATELET ESTIMATE ADEQUATE (NORMAL)
[2017-02-14] MEDS: Lactobacillus Rhamnosus 10 Billion CFU Capsule PO SCH (09:00)
[2017-02-14] MEDS: Pantoprazole 40 mg EC Tab PO SCH (09:00)
[2017-02-14] MEDS: Multivitamin w/ Minerals Tab PO SCH (09:01)
[2017-02-14 09:33] LABS: ABG SOURCE Arterial; ALLEN TEST Positive; BE(B) -13.6 mEq/L (-3.0-3.0); FIO2 32; HCO3 14.1 mEq/L (20.0-26.0); pH 7.24 (7.35-7.45)
--- NOTE | 2017-02-14 10:00 | Diagnostic Imaging Report ---
Exam: Chest portable HISTORY: Shortness of breath Findings: Portable upright examination of chest at 0750 hours reviewed compared to prior examination over the earlier unchanged appearance. Again noted right-sided PICC line terminates in superior vena cava. The NG tube is no longer visualized. Again noted mild congestion with left basilar atelectasis and effusion. Visualized bony thorax intact. IMPRESSION: 1. Interval removal of the nasogastric tube, otherwise unchanged upper approximation to earlier.
[2017-02-14] MEDS ORDERED: Sodium Chloride 0.45% 1,000 ML IV SCH (10:14)
[2017-02-14] MEDS ORDERED: Sodium Bicarbonate 8.4% 50mEq PFS IVP ONE (10:32)
--- NOTE | 2017-02-14 10:46 | General Progress Note ---
Subjective - Review of Systems Service Date: 02/14/17 Subjective: pt is in no acute distress no change in pt condition Objective - Results Result Diagrams: 02/14/17 06:00 02/14/17 06:00 Recent Labs: Laboratory Last Values WBC 9.4 Th/cmm (4.8-10.8) D 02/14/17 06:00 RBC 3.42 Mil/cmm (3.80-5.20) L 02/14/17 06:00 Hgb 9.7 gm/dL (11.7-16.1) L 02/14/17 06:00 Hct 28.8 % (35.0-45.0) L 02/14/17 06:00 MCV 84.4 fl (81-100) 02/14/17 06:00 MCH 28.3 pg (27.0-31.0) 02/14/17 06:00 MCHC Differential 33.6 pg (28.0-36.0) 02/14/17 06:00 RDW 17.9 % (11.5-20.0) 02/14/17 06:00 Plt Count 167 Th/cmm (150-400) 02/14/17 06:00 MPV 9.1 fl 02/14/17 06:00 Band Neutrophils % 4 % (0-10) 02/13/17 05:03 Neutrophils (Manual) 84 % (40-80) H 02/14/17 06:00 Lymphocytes 8 % (20-50) L 02/14/17 06:00 Monocytes 8 % (2-10) 02/14/17 06:00 Basophils 1 % (0-3) 02/09/17 20:27 Platelet Estimate ADEQUATE (NORMAL) 02/14/17 06:00 Platelet Morphology NORMAL (NORMAL) 02/09/17 20:27 PT 12.3 SECONDS (9.5-11.5) H 02/09/17 20:27 INR 1.17 (0.5-1.4) 02/09/17 20:27 PTT (Actin FS) 25.6 SECONDS (26.0-38.0) L 02/09/17 20:27 Specimen Source Arterial 02/14/17 09:07 Sample Site Right Radial 02/14/17 09:07 pH 7.24 (7.35-7.45) L* 02/14/17 09:07 pCO2 29.0 mmHg (35.0-45.0) L 02/14/17 09:07 pO2 63.0 mmHg (80.0-100.0) L 02/14/17 09:07 HCO3 14.1 mEq/L (20.0-26.0) L 02/14/17 09:07 Base Excess -13.6 mEq/L (-3.0-3.0) L 02/14/17 09:07 O2 Saturation 87.0 % (92.0-100.0) L 02/14/17 09:07 Robin Test Positive 02/14/17 09:07 Vent Rate NA 02/14/17 09:07 Inspired O2 32 02/14/17 09:07 Tidal Volume NA 02/14/17 09:07 PEEP NA 02/14/17 09:07 Pressure (ins/psv/peep) NA 02/14/17 09:07 Critical Value LZHANG 02/14/17 09:07 Sodium 133 mEq/L (136-145) L 02/14/17 06:00 Potassium 3.8 mEq/L (3.5-5.1) 02/14/17 06:00 Chloride 96 mEq/L (98-107) L 02/14/17 06:00 Carbon Dioxide 14.7 mEq/L (21.0-31.0) L 02/14/17 06:00 Anion Gap 26.1 (7.0-16.0) H 02/14/17 06:00 BUN 30 mg/dL (7-25) H 02/14/17 06:00 Creatinine 1.8 mg/dL (0.6-1.2) H 02/14/17 06:00 Est GFR ( Amer) 36.3 ml/min (>90) 02/14/17 06:00 Est GFR (Non-Af Amer) 30.0 ml/min 02/14/17 06:00 BUN/Creatinine Ratio 16.7 02/14/17 06:00 Glucose 152 mg/dL (70-105) H 02/14/17 06:00 POC Glucose 170 MG/DL (70 - 105) H 02/12/17 09:42 Hemoglobin A1c % 5.1 % (4.0-6.0) 02/11/17 08:11 Whole Bld Lactic Acid 1.52 mmol/L (0.60-1.99) 02/09/17 20:27 Calcium 8.3 mg/dL (8.6-10.3) L 02/14/17 06:00 Magnesium 2.0 mg/dL (1.9-2.7) 02/12/17 04:41 Total Bilirubin 2.1 mg/dL (0.3-1.0) H 02/14/17 06:00 AST 228 U/L (13-39) H 02/14/17 06:00 ALT 47 U/L (7-52) 02/14/17 06:00 Alkaline Phosphatase 168 U/L (34-104) H 02/14/17 06:00 Creatine Kinase 67 U/L (30-223) 02/12/17 04:41 CK-MB (CK-2) 1.1 ng/mL (0.6-6.3) 02/09/17 20: Troponin I 0.01 ng/mL (0.01-0.05) 02/09/17 20:27 B-Natriuretic Peptide 2760.0 pg/mL (5.0-100.0) H 02/14/17 06:00 Total Protein 6.1 gm/dL (6.0-8.3) 02/14/17 06:00 Albumin 3.7 gm/dL (3.7-5.3) 02/14/17 06:00 Globulin 2.4 gm/dL 02/14/17 06:00 Albumin/Globulin Ratio 1.5 (1.0-1.8) 02/14/17 06:00 Amylase 23 U/L (29-103) L 02/13/17 05:03 Lipase 13 U/L (11-82) 02/13/17 05:03 Urine Source CATH 02/09/17 21:05 Urine Color YELLOW 02/09/17 21:05 Urine Clarity SLIGHT HAZY (CLEAR) 02/09/17 21:05 Urine pH 5.5 02/09/17 21:05 Ur Specific [place] 1.020 (1.005-1.030) 02/09/17 21:05 Urine Protein 30 mg/dL (NEGATIVE) H 02/09/17 21:05 Urine Glucose (UA) NEGATIVE mg/dL (NEGATIVE) 02/09/17 21:05 Urine Ketones TRACE mg/dL (NEGATIVE) 02/09/17 21:05 Urine Blood NEGATIVE (NEGATIVE) 02/09/17 21:05 Urine Nitrate NEGATIVE (NEGATIVE) 02/09/17 21:05 Urine Bilirubin SMALL (NEGATIVE) H 02/09/17 21:05 Urine Urobilinogen 0.2 E.U./dL (0.2 - 1.0) 02/09/17 21:05 Ur Leukocyte Esterase NEGATIVE (NEGATIVE) 02/09/17 21:05 Urine RBC NONE SEEN /hpf (0-5) 02/09/17 21:05 Urine WBC 0-2 /hpf (0-5) 02/09/17 21:05 Ur Epithelial Cells OCCASIONAL /lpf (FEW) 02/09/17 21:05 Amorphous Sediment MODERATE URATES (NONE SEEN) 02/09/17 21:05 Urine Bacteria FEW /hpf (NONE SEEN) 02/09/17 21:05 Hyaline Casts 0-2 /lpf (0-2) H 02/09/17 21:05 Stool Leukocyte NO WBC SEEN 02/12/17 00:05 - Physical Exam Vitals and I&O: Vital Signs Temp 96.0 F 02/14/17 04:00 Pulse 117 02/14/17 09:30 Resp 24 02/14/17 08:08 BP 123/92 02/14/17 09:30 Pulse Ox 94 02/14/17 08:08 Intake & Output 02/13/17 02/14/17 02/14/17 18:59 06:59 18:59 Intake Total 313.742 6724.197 Output Total 200 300 Balance 690.173 879.197 Weight (lbs) 75.75 kg 78.471 kg Intake: Intake, IV Amount 896.685 9879.197 Albumin 25% 25gm/100mL 50 200 gm In 200 ml @ 50 mls/hr IV 2XW PATRICIA Rx#:[id number] KCL 20mEq/100mL Premix 40 90 meq In 200 ml @ 50 mls/ hr IV Q2H PATRICIA Rx#: [id number] Norepinephrine 8 mg In 600.173 629.197 Dextrose 5% 250 ml @ 40 MCG/MIN 77.4 mls/hr IV TITR PRN Rx#:[id number] Piperacillin Sodium/ 100 200.000 Tazobact 4.5 gm In Sodium Chloride 0.9% 100 ml @ 100 mls/hr IV Q8HR [facility] Rx #:[id number] Oral 100 150 Output: Urine 200 300 Other: # Bowel Movements 0 0 Active Medications: Current Medications Acetaminophen (Tylenol) 650 mg PO Q4HR PRN PRN Reason: TEMP >100 OR PAIN Stop: 04/11/17 15:21 Acetaminophen/Codeine Phosphate (Tylenol W/Codeine #3) 1 tab PO Q6HR PRN PRN Reason: MODERATE PAIN Stop: 04/11/17 15:21 Last Admin: 02/14/17 02:08 Dose: 1 tab Acetaminophen/Hydrocodone Bitart ([place] 5mg/325mg) 2 tab PO Q4H PRN PRN Reason: Severe Pain Stop: 04/11/17 15:21 Last Admin: 02/11/17 19:23 Dose: 2 tab Albuterol Sulfate (Albuterol 2.5mg/3ml Neb Ud) 2.5 mg HHN Q4HRT PRN PRN Reason: Wheezing Stop: 04/13/17 08:21 Last Admin: 02/14/17 08:07 Dose: 2.5 mg Ascorbic Acid (Vitamin C) 500 mg PO DAILY PATRICIA Stop: 04/12/17 08:59 Last Admin: 02/14/17 09:00 Dose: 500 mg Atorvastatin Calcium (Lipitor) 10 mg PO HS PATRICIA PRN Reason: Protocol Stop: 04/11/17 20:59 Last Admin: 02/13/17 20:48 Dose: 10 mg Furosemide (Lasix) 40 mg IVP BID PATRICIA Stop: 04/14/17 08:59 Last Admin: 02/13/17 18:11 Dose: 40 mg Hydrochlorothiazide (Hctz) 25 mg PO DAILY PATRICIA Stop: 04/12/17 08:59 Last Admin: 02/14/17 09:00 Dose: 25 mg Piperacillin Sod/Tazobactam (Sod 4.5 gm/ Sodium Chloride) 100 mls @ 100 mls/hr IV Q8HR PATRICIA Stop: 04/11/17 13:59 Last Infusion: 02/14/17 05:46 Dose: Infused Norepinephrine Bitartrate 8 mg (/ Dextrose) 258 mls @ 77.4 mls/hr IV TITR PRN; Protocol; 40 MCG/MIN PRN Reason: BP MAINTENANCE (PER PROTOCOL) Stop: 04/12/17 07:46 Last Titration: 02/14/17 06:15 Dose: 30 mcg/min, 58.05 mls/hr Diltiazem HCl 125 mg/ Dextrose 125 mls @ 10 mls/hr IV TITR PATRICIA; 10 MG/HR PRN Reason: Protocol Stop: 04/15/17 04:29 Last Admin: 02/14/17 05:01 Dose: 10 mg/hr, 10 mls/hr Sodium Chloride (Nacl 0.45%) 1,000 mls @ 0 mls/hr IV .Q0M PATRICIA PRN Reason: KVO Stop: 04/15/17 10:13 Lactobacillus Rhamnosus (Culturelle) 1 each PO DAILY PATRICIA Stop: 04/13/17 08:59 Last Admin: 02/14/17 09:00 Dose: 1 each Methylprednisolone Sodium Succinate (Solu-Medrol) 20 mg IVP Q8HR [facility] Stop: 04/14/17 12:59 Last Admin: 02/14/17 04:47 Dose: 20 mg Miscellaneous (Probiotic Screen) 1 ea PRN PRN PRN Reason: PROTOCOL Stop: 04/12/17 09:13 Olanzapine (Zyprexa) 7.5 mg PO DAILY PATRICIA PRN Reason: Protocol Stop: 04/12/17 08:59 Last Admin: 02/14/17 09:01 Dose: 7.5 mg Ondansetron HCl (Zofran) 4 mg IV Q8H PRN PRN Reason: Nausea / Vomiting Stop: 04/11/17 08:23 Last Admin: 02/12/17 00:59 Dose: 4 mg Pantoprazole Sodium (Protonix) 40 mg PO DAILY [facility] Stop: 04/12/17 08:59 Last Admin: 02/14/17 09:00 Dose: 40 mg General: No acute distress HEENT: Atraumatic Cardiovascular: Regular rate Assessment/Plan - Problem List Patient Problems: All Active Problems NAUSEA AND VOMITING WITH DEHYDRATION (Acute) - Assessment Assessment: Current Active Problems Problem Status Onset NAUSEA AND VOMITING WITH DEHYDRATION Acute leukocytosis distended gall bladder r/o chelocystitis trachycardia - Plan Plan: as per order sheet
[2017-02-14] MEDS: Hydrocodone/APAP 5mg/325mg Tab PO PRN (12:14)
--- NOTE | 2017-02-14 13:09 | Infectious Disease Prog Note ---
Infectious Disease Subjective - Review of Systems Service Date: 02/14/17 Subjective: There is no new change, no fever. No more nausea and vomiting. Remains on levophed at 10 mcg/min. CXR showed congestion. Lasix given and IV fluid was stopped. Patient is able to answer to question appropriately. However, she seems to be sedated and unable to open her eyes. No fever. Infectious Disease Objective - Results Result Diagrams: 02/14/17 06:00 02/14/17 06:00 Recent Labs: Laboratory Last Values WBC 9.4 Th/cmm (4.8-10.8) D 02/14/17 06:00 RBC 3.42 Mil/cmm (3.80-5.20) L 02/14/17 06:00 Hgb 9.7 gm/dL (11.7-16.1) L 02/14/17 06:00 Hct 28.8 % (35.0-45.0) L 02/14/17 06:00 MCV 84.4 fl (81-100) 02/14/17 06:00 MCH 28.3 pg (27.0-31.0) 02/14/17 06:00 MCHC Differential 33.6 pg (28.0-36.0) 02/14/17 06:00 RDW 17.9 % (11.5-20.0) 02/14/17 06:00 Plt Count 167 Th/cmm (150-400) 02/14/17 06:00 MPV 9.1 fl 02/14/17 06:00 Band Neutrophils % 4 % (0-10) 02/13/17 05:03 Neutrophils (Manual) 84 % (40-80) H 02/14/17 06:00 Lymphocytes 8 % (20-50) L 02/14/17 06:00 Monocytes 8 % (2-10) 02/14/17 06:00 Basophils 1 % (0-3) 02/09/17 20:27 Platelet Estimate ADEQUATE (NORMAL) 02/14/17 06:00 Platelet Morphology NORMAL (NORMAL) 02/09/17 20:27 PT 12.3 SECONDS (9.5-11.5) H 02/09/17 20:27 INR 1.17 (0.5-1.4) 02/09/17 20:27 PTT (Actin FS) 25.6 SECONDS (26.0-38.0) L 02/09/17 20:27 Specimen Source Arterial 02/14/17 09:07 Sample Site Right Radial 02/14/17 09:07 pH 7.24 (7.35-7.45) L* 02/14/17 09:07 pCO2 29.0 mmHg (35.0-45.0) L 02/14/17 09:07 pO2 63.0 mmHg (80.0-100.0) L 02/14/17 09:07 HCO3 14.1 mEq/L (20.0-26.0) L 02/14/17 09:07 Base Excess -13.6 mEq/L (-3.0-3.0) L 02/14/17 09:07 O2 Saturation 87.0 % (92.0-100.0) L 02/14/17 09:07 Robin Test Positive 02/14/17 09:07 Vent Rate NA 02/14/17 09:07 Inspired O2 32 02/14/17 09:07 Tidal Volume NA 02/14/17 09:07 PEEP NA 02/14/17 09:07 Pressure (ins/psv/peep) NA 02/14/17 09:07 Critical Value LZHANG 02/14/17 09:07 Sodium 133 mEq/L (136-145) L 02/14/17 06:00 Potassium 3.8 mEq/L (3.5-5.1) 02/14/17 06:00 Chloride 96 mEq/L (98-107) L 02/14/17 06:00 Carbon Dioxide 14.7 mEq/L (21.0-31.0) L 02/14/17 06:00 Anion Gap 26.1 (7.0-16.0) H 02/14/17 06:00 BUN 30 mg/dL (7-25) H 02/14/17 06:00 Creatinine 1.8 mg/dL (0.6-1.2) H 02/14/17 06:00 Est GFR ( Amer) 36.3 ml/min (>90) 02/14/17 06:00 Est GFR (Non-Af Amer) 30.0 ml/min 02/14/17 06:00 BUN/Creatinine Ratio 16.7 02/14/17 06:00 Glucose 152 mg/dL (70-105) H 02/14/17 06:00 POC Glucose 170 MG/DL (70 - 105) H 02/12/17 09:42 Hemoglobin A1c % 5.1 % (4.0-6.0) 02/11/17 08:11 Whole Bld Lactic Acid 1.52 mmol/L (0.60-1.99) 02/09/17 20:27 Calcium 8.3 mg/dL (8.6-10.3) L 02/14/17 06:00 Magnesium 2.0 mg/dL (1.9-2.7) 02/12/17 04:41 Total Bilirubin 2.1 mg/dL (0.3-1.0) H 02/14/17 06:00 AST 228 U/L (13-39) H 02/14/17 06:00 ALT 47 U/L (7-52) 02/14/17 06:00 Alkaline Phosphatase 168 U/L (34-104) H 02/14/17 06:00 Creatine Kinase 67 U/L (30-223) 02/12/17 04:41 CK-MB (CK-2) 1.1 ng/mL (0.6-6.3) 02/09/17 20:27 Troponin I 0.01 ng/mL (0.01-0.05) 02/09/17 20:27 B-Natriuretic Peptide 2760.0 pg/mL (5.0-100.0) H 02/14/17 06:00 Total Protein 6.1 gm/dL (6.0-8.3) 02/14/17 06:00 Albumin 3.7 gm/dL (3.7-5.3) 02/14/17 06:00 Globulin 2.4 gm/dL 02/14/17 06:00 Albumin/Globulin Ratio 1.5 (1.0-1.8) 02/14/17 06:00 Amylase 23 U/L (29-103) L 02/13/17 05:03 Lipase 13 U/L (11-82) 02/13/17 05:03 Urine Source CATH 02/09/17 21:05 Urine Color YELLOW 02/09/17 21:05 Urine Clarity SLIGHT HAZY (CLEAR) 02/09/17 21:05 Urine pH 5.5 02/09/17 21:05 Ur Specific [place] 1.020 (1.005-1.030) 02/09/17 21:05 Urine Protein 30 mg/dL (NEGATIVE) H 02/09/17 21:05 Urine Glucose (UA) NEGATIVE mg/dL (NEGATIVE) 02/09/17 21:05 Urine Ketones TRACE mg/dL (NEGATIVE) 02/09/17 21:05 Urine Blood NEGATIVE (NEGATIVE) 02/09/17 21:05 Urine Nitrate NEGATIVE (NEGATIVE) 02/09/17 21:05 Urine Bilirubin SMALL (NEGATIVE) H 02/09/17 21:05 Urine Urobilinogen 0.2 E.U./dL (0.2 - 1.0) 02/09/17 21:05 Ur Leukocyte Esterase NEGATIVE (NEGATIVE) 02/09/17 21:05 Urine RBC NONE SEEN /hpf (0-5) 02/09/17 21:05 Urine WBC 0-2 /hpf (0-5) 02/09/17 21:05 Ur Epithelial Cells OCCASIONAL /lpf (FEW) 02/09/17 21:05 Amorphous Sediment MODERATE URATES (NONE SEEN) 02/09/17 21:05 Urine Bacteria FEW /hpf (NONE SEEN) 02/09/17 21:05 Hyaline Casts 0-2 /lpf (0-2) H 02/09/17 21:05 Stool Leukocyte NO WBC SEEN 02/12/17 00:05 - Physical Exam Vitals and I&O: Vital Signs Temp 96.0 F 02/14/17 04:00 Pulse 117 02/14/17 12:30 Resp 29 02/14/17 11:00 BP 109/73 02/14/17 12:30 Pulse Ox 97 02/14/17 11:00 Intake & Output 02/13/17 02/14/17 02/14/17 18:59 06:59 18:59 Intake Total 150.771 2881.197 Output Total 200 300 Balance 690.173 879.197 Weight (lbs) 75.75 kg 78.471 kg Intake: Intake, IV Amount 555.111 4216.197 Albumin 25% 25gm/100mL 50 200 gm In 200 ml @ 50 mls/hr IV 2XW PATRICIA Rx#:[id number] KCL 20mEq/100mL Premix 40 90 meq In 200 ml @ 50 mls/ hr IV Q2H PATRICIA Rx#: [id number] Norepinephrine 8 mg In 600.173 629.197 Dextrose 5% 250 ml @ 40 MCG/MIN 77.4 mls/hr IV TITR PRN Rx#:[id number] Piperacillin Sodium/ 100 200.000 Tazobact 4.5 gm In Sodium Chloride 0.9% 100 ml @ 100 mls/hr IV Q8HR [facility] Rx #:[id number] Oral 100 150 Output: Urine 200 300 Other: # Bowel Movements 0 0 Active Medications: Current Medications Acetaminophen (Tylenol) 650 mg PO Q4HR PRN PRN Reason: TEMP >100 OR PAIN Stop: 04/11/17 15:21 Acetaminophen/Codeine Phosphate (Tylenol W/Codeine #3) 1 tab PO Q6HR PRN PRN Reason: MODERATE PAIN Stop: 04/11/17 15:21 Last Admin: 02/14/17 02:08 Dose: 1 tab Acetaminophen/Hydrocodone Bitart ([place] 5mg/325mg) 2 tab PO Q4H PRN PRN Reason: Severe Pain Stop: 04/11/17 15:21 Last Admin: 02/14/17 12:14 Dose: 2 tab Albuterol Sulfate (Albuterol 2.5mg/3ml Neb Ud) 2.5 mg HHN Q4HRT PRN PRN Reason: Wheezing Stop: 04/13/17 08:21 Last Admin: 02/14/17 08:07 Dose: 2.5 mg Ascorbic Acid (Vitamin C) 500 mg PO DAILY PATRICIA Stop: 04/12/17 08:59 Last Admin: 02/14/17 09:00 Dose: 500 mg Atorvastatin Calcium (Lipitor) 10 mg PO HS PATRICIA PRN Reason: Protocol Stop: 04/11/17 20:59 Last Admin: 02/13/17 20:48 Dose: 10 mg Furosemide (Lasix) 40 mg IVP BID PATRICIA Stop: 04/14/17 08:59 Last Admin: 02/13/17 18:11 Dose: 40 mg Hydrochlorothiazide (Hctz) 25 mg PO DAILY PATRICIA Stop: 04/12/17 08:59 Last Admin: 02/14/17 09:00 Dose: 25 mg Piperacillin Sod/Tazobactam (Sod 4.5 gm/ Sodium Chloride) 100 mls @ 100 mls/hr IV Q8HR [facility] Stop: 04/11/17 13:59 Last Infusion: 02/14/17 05:46 Dose: Infused Norepinephrine Bitartrate 8 mg (/ Dextrose) 258 mls @ 77.4 mls/hr IV TITR PRN; Protocol; 40 MCG/MIN PRN Reason: BP MAINTENANCE (PER PROTOCOL) Stop: 04/12/17 07:46 Last Titration: 02/14/17 06:15 Dose: 30 mcg/min, 58.05 mls/hr Diltiazem HCl 125 mg/ Dextrose 125 mls @ 10 mls/hr IV TITR PATRICIA; 10 MG/HR PRN Reason: Protocol Stop: 04/15/17 04:29 Last Admin: 02/14/17 05:01 Dose: 10 mg/hr, 10 mls/hr Sodium Chloride (Nacl 0.45%) 1,000 mls @ 0 mls/hr IV .Q0M PATRICIA PRN Reason: KVO Stop: 04/15/17 10:13 Last Admin: 02/14/17 11:04 Dose: 10 mls/hr Lactobacillus Rhamnosus (Culturelle) 1 each PO DAILY PATRICIA Stop: 04/13/17 08:59 Last Admin: 02/14/17 09:00 Dose: 1 each Methylprednisolone Sodium Succinate (Solu-Medrol) 20 mg IVP Q8HR PATR[facility]IA Stop: 04/14/17 12:59 Last Admin: 02/14/17 04:47 Dose: 20 mg Miscellaneous (Probiotic Screen) 1 ea MC PRN PRN PRN Reason: PROTOCOL Stop: 04/12/17 09:13 Olanzapine (Zyprexa) 7.5 mg PO DAILY PATRICIA PRN Reason: Protocol Stop: 04/12/17 08:59 Last Admin: 02/14/17 09:01 Dose: 7.5 mg Ondansetron HCl (Zofran) 4 mg IV Q8H PRN PRN Reason: Nausea / Vomiting Stop: 04/11/17 08:23 Last Admin: 02/12/17 00:59 Dose: 4 mg Pantoprazole Sodium (Protonix) 40 mg PO DAILY PATRICIA Stop: 04/12/17 08:59 Last Admin: 02/14/17 09:00 Dose: 40 mg General: no acute distress, well developed, well nourished HEENT: atraumatic, normocephalic, PERRLA, EOMI Neck: supple, lines (PIC line right upper extremity.), no thyromegaly, no lymphadenopathy, no rigid, no tracheostomy Cardiovascular: S1S2, regular Lungs: clear to auscultation bilaterally, clear to percussion, no wheeze, no rhonchi Abdomen: soft, no tender, no distended Extremities: other (left knee no effusion. superficial wound.), no cyanosis, no clubbing, no edema Neurological: other (as in subjective.) Skin: intact Infectious Disease Assmt/Plan - Problem List Patient Problems: All Active Problems NAUSEA AND VOMITING WITH DEHYDRATION (Acute) - Assessment Assessment: 1. Septic shock. Improving. 2. Hypotension. Dehydration, sepsis. septic shock. Improving. 3. H/o HTN. 4. H/o Anemia. 5. Metabolic acidosis, improved. 6. SU, ? ATN. 7. Small superficial leg wound at the distal end, no sign of infection. 8. hypokalemia. Improved. 9. H/O Left TKR. no clinical sign of infection. 10. Suspect aspiration pneumonia. Recommendations: Antibiotic cheek, continue zosyn. wound care. THEA sykes. Labs in am. Follow up sepsis w/u. Start PO as tolertated. DW patient's son.
--- NOTE | 2017-02-14 14:42 | Consultation ---
Consult Note - Consult Note Service Date: 02/14/17 Consult Note: PHYSICIAN Consultation Note: Date of Admission: 02/09/17 Purpose of Consultation: Worsening kidney function Chief Complaint: Progressive deterioration of kidney function History of Present Illness: 66 year old female past medical history of hypertension who was brought in because of abdominal pain and vomiting. Patient was admitted last February 09 due to abdominal pain and vomiting. CT scan of the abdomen/pelvis revealed no hydronephrosis, small right kidney cyst. This was followed by an abdominal ultrasound which revealed normal gallbladder stone. HIDA scan was negative for acute cholecystitis. KUB showed ileus. She was seen by ID for septic shock and possible aspiration pneumonia. She was followed by cardiology for hypotension, arrhythmia, and CHF with a BNP of 2760. She was followed by pulmonary for respiratory failure and pneumonia and now on BiPAP. Her BUN/creatinine on admission were 32/1.1. Her BUN/creatinine today were 30/ 1.8. Past Medical History: Essential hypertension Dyslipidemia Anemia of chronic disease Status post infected left knee prostheses Past surgical history: Status post left total knee replacement Status post IND of left knee Diagnoses SEPSIS, UNSPECIFIED ORGANISM (02/09/17) ANEMIA, UNSPECIFIED (02/09/17) HYPERLIPIDEMIA, UNSPECIFIED (02/09/17) DEHYDRATION (02/09/17) ACIDOSIS (02/09/17) HYPOKALEMIA (02/09/17) ESSENTIAL (PRIMARY) HYPERTENSION (02/09/17) PNEUMONITIS DUE TO INHALATION OF FOOD AND VOMIT (02/09/17) UMBILICAL HERNIA WITHOUT OBSTRUCTION OR GANGRENE (02/09/17) ILEUS, UNSPECIFIED (02/09/17) CHOLECYSTITIS, UNSPECIFIED (02/09/17) ACUTE KIDNEY FAILURE WITH TUBULAR NECROSIS (02/09/17) UNSPECIFIED ABDOMINAL PAIN (02/09/17) SEVERE SEPSIS WITH SEPTIC SHOCK (02/09/17) Assessment: Acute kidney injury MDRD GFR 13 mL per minute Prerenal azotemia initially due to shock, hypoalbuminemia, dehydration due to low oral intake giving rise to acute tubular injury. She may also have developed acute interstitial nephritis secondary to ongoing septicemia as well as medications. Shock secondary to sepsis Distended gallbladder but no acute cholecystitis Abdominal pain etiology possibly ileus Ileus due to sepsis Progressive increase in liver enzymes possibly due to sepsis, meds along with shock Sepsis secondary to aspiration pneumonia Acute decompensated CHF Respiratory failure secondary to aspiration pneumonia and CHF on BiPAP Anemia of chronic kidney disease Dyslipidemia Status post infected prosthesis of both knee replacement, status post IND Purely metabolic acidosis based on Delta/Delta with respiratory alkalosis based on Erickson formula Allergies Allergy/AdvReac Type Severity Reaction Status Date / Time No Known Allergies Allergy Verified 02/09/17 17:43 Vital Signs Temp 96.0 F 02/14/17 04:00 Pulse 117 02/14/17 12:30 Resp 24 02/14/17 13:35 BP 109/73 02/14/17 12:30 Pulse Ox 99 02/14/17 13:35 Intake & Output 02/13/17 02/14/17 02/14/17 18:59 06:59 18:59 Intake Total 507.017 2817.197 257.032 Output Total 200 300 Balance 690.173 879.197 257.032 Weight (lbs) 75.75 kg 78.471 kg Intake: Intake, IV Amount 641.038 9001.197 257.032 Albumin 25% 25gm/100mL 50 200 gm In 200 ml @ 50 mls/hr IV 2XW PATRICIA Rx#:[id number] KCL 20mEq/100mL Premix 40 90 meq In 200 ml @ 50 mls/ hr IV Q2H PATRICIA Rx#: [id number] Norepinephrine 8 mg In 600.173 629.197 257.032 Dextrose 5% 250 ml @ 40 MCG/MIN 77.4 mls/hr IV TITR PRN Rx#:[id number] Piperacillin Sodium/ 100 200.000 Tazobact 4.5 gm In Sodium Chloride 0.9% 100 ml @ 100 mls/hr IV Q8HR PATRICIA Rx #:[id number] Oral 100 150 Output: Urine 200 300 Other: # Bowel Movements 0 0 Laboratory Results - last 24 hr 02/14/17 02/14/17 02/14/17 06:00 06:00 06:00 WBC 9.4 D RBC 3.42 L Hgb 9.7 L Hct 28.8 L MCV 84.4 MCH 28.3 MCHC Differential 33.6 RDW 17.9 Plt Count 167 MPV 9.1 Neutrophils (Manual) 84 H Lymphocytes 8 L Monocytes 8 Platelet Estimate ADEQUATE Specimen Source Sample Site pH pCO2 pO2 HCO3 Base Excess O2 Saturation Robin Test Vent Rate Inspired O2 Tidal Volume PEEP Pressure (ins/psv/peep) Critical Value Sodium 133 L Potassium 3.8 Chloride 96 L Carbon Dioxide 14.7 L Anion Gap 26.1 H BUN 30 H Creatinine 1.8 H Est GFR ( Amer) 36.3 Est GFR (Non-Af Amer) 30.0 BUN/Creatinine Ratio 16.7 Glucose 152 H Calcium 8.3 L Total Bilirubin 2.1 H AST 228 H ALT 47 Alkaline Phosphatase 168 H B-Natriuretic Peptide 2760.0 H Total Protein 6.1 Albumin 3.7 Globulin 2.4 Albumin/Globulin Ratio 1.5 02/14/17 09:07 WBC RBC Hgb Hct MCV MCH MCHC Differential RDW Plt Count MPV Neutrophils (Manual) Lymphocytes Monocytes Platelet Estimate Specimen Source Arterial Sample Site Right Radial pH 7.24 L* pCO2 29.0 L pO2 63.0 L HCO3 14.1 L Base Excess -13.6 L O2 Saturation 87.0 L Robin Test Positive Vent Rate NA Inspired O2 32 Tidal Volume NA PEEP NA Pressure (ins/psv/peep) NA Critical Value LZHANG Sodium Potassium Chloride Carbon Dioxide Anion Gap BUN Creatinine Est GFR ( Amer) Est GFR (Non-Af Amer) BUN/Creatinine Ratio Glucose Calcium Total Bilirubin AST ALT Alkaline Phosphatase B-Natriuretic Peptide Total Protein Albumin Globulin Albumin/Globulin Ratio Home Medication Medication Instructions Recorded Type APAP/Codeine 300 mg/30 mg [Tylenol 1 tab PO Q6HR PRN 02/09/17 History w/Codeine #3] Acetaminophen [Tylenol] 650 mg PO Q4HR PRN 02/09/17 History Ascorbic Acid [Vitamin C] 500 mg PO DAILY 02/09/17 History Atorvastatin Calcium [Lipitor] 10 mg PO HS 02/09/17 History Enalapril Maleate [Vasotec] 5 mg PO Q12H 02/09/17 History Hydrochlorothiazide 25 mg PO DAILY 02/09/17 History Hydrocodone/APAP 5mg/325mg [Dellrose 2 tab PO Q4H PRN 02/09/17 History 5mg/325mg] Magnesium Chloride [Magnesium Dr] 128 mg PO BID 02/09/17 History Multivitamin w/ Minerals 1 tab PO DAILY 02/09/17 History [Theragran M] OLANZapine [ZyPREXA] 7.5 mg PO DAILY 02/09/17 History Ondansetron HCl [Zofran*] 4 mg PO Q6H PRN 02/09/17 History Pantoprazole [Protonix] 40 mg PO DAILY 02/09/17 History Potassium Chloride ER [Klor-Con] 20 meq PO DAILY 02/09/17 History Protein Hydrolysate,Milk [Liquid 54 ml PO DAILY 02/09/17 History Protein Fortifier] Sennakot 2 tab PO DAILY 02/09/17 History Sodium Bicarbonate 650 mg PO BID 02/09/17 History Current Medications Generic Name Dose Route Start Last Admin Trade Name Freq PRN Reason Stop Dose Admin Acetaminophen 650 mg 02/10/17 15:22 Tylenol PO 04/11/17 15:21 Q4HR PRN TEMP >100 OR PAIN Acetaminophen/Codeine Phosphate 1 tab 02/10/17 15:22 02/14/17 02:08 Tylenol W/Codeine #3 PO 04/11/17 15:21 1 tab Q6HR PRN Administration MODERATE PAIN Acetaminophen/Hydrocodone Bitart 2 tab 02/10/17 15:22 02/14/17 12:14 Dellrose 5mg/325mg PO 04/11/17 15:21 2 tab Q4H PRN Administration Severe Pain Albuterol Sulfate 2.5 mg 02/12/17 08:22 02/14/17 08:07 Albuterol 2.5mg/3ml Neb Ud HHN 04/13/17 08:21 2.5 mg Q4HRT PRN Administration Wheezing Ascorbic Acid 500 mg 02/11/17 09:00 02/14/17 09:00 Vitamin C PO 04/12/17 08:59 500 mg DAILY PATRICIA Administration Atorvastatin Calcium 10 mg 02/10/17 21:00 02/13/17 20:48 Lipitor PO 04/11/17 20:59 10 mg HS PATRICIA Administration Protocol Furosemide 40 mg 02/13/17 09:00 02/13/17 18:11 Lasix IVP 04/14/17 08:59 40 mg BID PATRICIA Administration Hydrochlorothiazide 25 mg 02/11/17 09:00 02/14/17 09:00 Hctz PO 04/12/17 08:59 25 mg DAILY PATRICIA Administration Piperacillin Sod/Tazobactam 100 mls @ 100 mls/hr 02/10/17 14:00 02/14/17 13: 15 Sod 4.5 gm/ Sodium Chloride IV 04/11/17 13:59 100 mls/hr Q8HR PATRICIA Administration Norepinephrine Bitartrate 8 mg 258 mls @ 77.4 mls/hr 02/11/17 07:47 02/14/17 13:23 / Dextrose IV 04/12/17 07:46 30 mcg/min TITR PRN 58.05 mls/hr BP MAINTENANCE (PER PROTOCOL) Administration Protocol 40 MCG/MIN Diltiazem HCl 125 mg/ Dextrose 125 mls @ 10 mls/hr 02/14/17 04:30 02/14/17 05 :01 IV 04/15/17 04:29 10 mg/hr TITR PATRICIA 10 mls/hr Protocol Administration 10 MG/HR Sodium Chloride 1,000 mls @ 0 mls/hr 02/14/17 10:14 02/14/17 11:04 Nacl 0.45% IV 04/15/17 10:13 10 mls/hr .Q0M PATRICIA Administration KVO Lactobacillus Rhamnosus 1 each 02/12/17 09:00 02/14/17 09:00 Culturelle PO 04/13/17 08:59 1 each DAILY PATRICIA Administration Methylprednisolone Sodium Succinate 20 mg 02/13/17 13:00 02/14/17 13:13 Solu-Medrol IVP 04/14/17 12:59 20 mg Q8HR PATRICIA Administration Miscellaneous 1 ea 02/11/17 09:14 Probiotic Screen MC 04/12/17 09:13 PRN PRN PROTOCOL Olanzapine 7.5 mg 02/11/17 09:00 02/14/17 09:01 Zyprexa PO 04/12/17 08:59 7.5 mg DAILY PATRICIA Administration Protocol Ondansetron HCl 4 mg 02/10/17 08:24 02/12/17 00:59 Zofran IV 04/11/17 08:23 4 mg Q8H PRN Administration Nausea / Vomiting Pantoprazole Sodium 40 mg 02/11/17 09:00 02/14/17 09:00 Protonix PO 04/12/17 08:59 40 mg DAILY PATRICIA Administration Review of Systems: A 12 point ROS was reviewed with the pertinent positive and negatives noted in the HPI. Social History Smoking Status Never smoker Family Medical History Family Medical History Start: 02/10/17 00: 08 Freq: ONCE Status: Active Document 02/10/17 01:30 SYAP (Rec: 02/10/17 03:14 SYAP [id number]) Family Medical History Mother History Unknown Yes Physical Exam: General: Encephalopathic, with periods of agitation, disoriented HEENT: EOMI Bilaterally, Head is normocephalic, atraumatic on inspection, supple Cardio: +S1/S2 Auscultated, irregular rhythm, no murmurs/rubs/gallops noted Respiratory: Harsh rhonchi Bilaterally Abdominal: Soft, Nondistended, Nontender to palpation x 4 quadrants Genital/Urinary: Within normal limits Extremities: No Edema noted in the lower extremities Neurological: No Focal Deficits noted. Assessment/Plan: Discontinue hydrochlorothiazide agree with sodium bicarbonate Continue pressors Urinalysis Urine sodium, eosinophils and creatinine Urine microalbumin to creatinine ratio Diuretics for now Serial chest x-ray and electrolytes consider discontinuing Zyprexa Juan Sheridan Raymondo S. [id number]
[2017-02-14 16:29] LABS: ABG SOURCE Arterial; ALLEN TEST Positive; BE(B) -3.6 mEq/L (-3.0-3.0); FIO2 40; HCO3 22.1 mEq/L (20.0-26.0); MECH RATE 12; PS 6
[2017-02-14 18:08] LABS: URINE BILIRUBIN NEGATIVE (NEGATIVE); URINE BLOOD MODERATE (NEGATIVE); URINE COLOR YELLOW; URINE GLUCOSE (UA) NEGATIVE (NEGATIVE); URINE KETONE NEGATIVE (NEGATIVE); URINE PH 5.5; URINE PROTEIN 100 mg/dL (NEGATIVE); URINE UROBILINOGEN 0.2 E.U./dL (0.2 - 1.0)
[2017-02-14 18:09] LABS: URINE AMORPHOUS SEDIMENT MANY URATES (NONE SEEN); URINE BACTERIA MODERATE /hpf (NONE SEEN); URINE EPITHELIAL CELLS FEW /lpf (FEW)
[2017-02-14] MEDS: Atorvastatin Calcium 10 MG TAB PO SCH (20:49)
[2017-02-15] MEDS: Hydrocodone/APAP 5mg/325mg Tab PO PRN (00:06)
[2017-02-15] MEDS ORDERED: Norepinephrine 4 mg/4mL Vial IV ONE (01:54)
[2017-02-15 05:18] LABS: HEMOGLOBIN 9.5 gm/dL (11.7-16.1); PLATELET COUNT 195 Th/cmm (150-400)
[2017-02-15] MEDS: methylPREDNISolone SS 40 mg Vial IVP SCH ×3 (05:23→21:05)
[2017-02-15 05:31] LABS: HEMATOCRIT 28.4 % (35.0-45.0); MEAN CELL VOLUME 83.5 fl (81-100); MEAN CORPUSCULAR HEMOGLOBIN 28.1 pg (27.0-31.0); MEAN CORPUSCULAR HGB CONC 33.6 pg (28.0-36.0); MEAN PLATELET VOLUME 10.4 fl; RED BLOOD COUNT 3.39 Mil/cmm (3.80-5.20); RED CELL DISTRIBUTION WIDTH 17.1 % (11.5-20.0)
[2017-02-15 05:40] LABS: WHITE BLOOD COUNT 13.8 Th/cmm (4.8-10.8)
[2017-02-15 06:06] LABS: ALB/GLOB RATIO 1.4 (1.0-1.8); ANION GAP 19.1 (7.0-16.0); BILIRUBIN,TOTAL 1.6 mg/dL (0.3-1.0); BUN/CREATININE RATIO 18.1; CALCIUM SERUM 8.4 mg/dL (8.6-10.3); CARBON DIOXIDE 24.5 mEq/L (21.0-31.0); CREATININE - SERUM 2.1 mg/dL (0.6-1.2); MAGNESIUM 1.8 mg/dL (1.9-2.7); PHOSPHOROUS 3.8 mg/dL (2.5-5.0); POTASSIUM SERUM 3.6 mEq/L (3.5-5.1); URIC ACID 11.2 mg/dL (2.3-6.6)
[2017-02-15 06:48] LABS: BAND NEUTROPHILE 1 % (0-10); EOSINOPHIL 1 % (0-5); NEUTROPHILS 80 % (40-80); PLATELET ESTIMATE ADEQUATE (NORMAL); TOTAL CELLS COUNTED 100
[2017-02-15] MEDS ORDERED: Diltiazem 5 mg/mL 25mL Vial IV ONE (07:13)
[2017-02-15] MEDS: Pantoprazole 40 mg EC Tab PO SCH (09:32)
[2017-02-15] MEDS: Multivitamin w/ Minerals Tab PO SCH (09:33)
[2017-02-15] MEDS: Lactobacillus Rhamnosus 10 Billion CFU Capsule PO SCH (09:33)
--- NOTE | 2017-02-15 10:53 | Diagnostic Imaging Report ---
Portable chest x-ray HISTORY: Shortness of breath Compared to prior exam of February 14, 2017, the heart remains enlarged. Density remains the left lower hemithorax with obscuration of the left hemidiaphragm. Findings may be associated with pleural fluid. Underlying consolidation and/or atelectasis cannot be excluded. IMPRESSION: 1. No change in the cardiopulmonary status as noted above.
--- NOTE | 2017-02-15 11:14 | Infectious Disease Prog Note ---
Infectious Disease Subjective - Review of Systems Service Date: 02/15/17 Subjective: There is no new change, no fever. No more nausea and vomiting. Remains on levophed at 8 mcg/min. She got enough sleep last, feels better, lactic acid is still high. Infectious Disease Objective - Results Result Diagrams: 02/15/17 05:00 02/15/17 05:00 Recent Labs: Laboratory Last Values WBC 13.8 Th/cmm (4.8-10.8) H D 02/15/17 05:00 RBC 3.39 Mil/cmm (3.80-5.20) L 02/15/17 05:00 Hgb 9.5 gm/dL (11.7-16.1) L 02/15/17 05:00 Hct 28.4 % (35.0-45.0) L 02/15/17 05:00 MCV 83.5 fl (81-100) 02/15/17 05:00 MCH 28.1 pg (27.0-31.0) 02/15/17 05:00 MCHC Differential 33.6 pg (28.0-36.0) 02/15/17 05:00 RDW 17.1 % (11.5-20.0) 02/15/17 05:00 Plt Count 195 Th/cmm (150-400) 02/15/17 05:00 MPV 10.4 fl 02/15/17 05:00 Band Neutrophils % 1 % (0-10) 02/15/17 05:00 Neutrophils (Manual) 80 % (40-80) 02/15/17 05:00 Lymphocytes 9 % (20-50) L 02/15/17 05:00 Monocytes 9 % (2-10) 02/15/17 05:00 Eosinophils 1 % (0-5) 02/15/17 05:00 Basophils 1 % (0-3) 02/09/17 20:27 Platelet Estimate ADEQUATE (NORMAL) 02/15/17 05:00 Platelet Morphology NORMAL (NORMAL) 02/09/17 20:27 Eos Smear Source URINE 02/14/17 17:40 Eos Smear Total Cells NONE SEEN (NONE SEEN) 02/14/17 17:40 PT 12.3 SECONDS (9.5-11.5) H 02/09/17 20:27 INR 1.17 (0.5-1.4) 02/09/17 20:27 PTT (Actin FS) 25.6 SECONDS (26.0-38.0) L 02/09/17 20:27 Specimen Source Arterial 02/14/17 16:00 Sample Site Right Radial 02/14/17 16:00 pH 7.40 (7.35-7.45) 02/14/17 16:00 pCO2 33.0 mmHg (35.0-45.0) L 02/14/17 16:00 pO2 103.0 mmHg (80.0-100.0) H 02/14/17 16:00 HCO3 22.1 mEq/L (20.0-26.0) 02/14/17 16:00 Base Excess -3.6 mEq/L (-3.0-3.0) L 02/14/17 16:00 O2 Saturation 98.0 % (92.0-100.0) 02/14/17 16:00 Robin Test Positive 02/14/17 16:00 Vent Rate 12 02/14/17 16:00 Inspired O2 40 02/14/17 16:00 Tidal Volume NA 02/14/17 16:00 PEEP 6 02/14/17 16:00 Pressure (ins/psv/peep) 6 02/14/17 16:00 Critical Value LZHANG 02/14/17 16:00 Sodium 133 mEq/L (136-145) L 02/15/17 05:00 Potassium 3.6 mEq/L (3.5-5.1) 02/15/17 05:00 Chloride 93 mEq/L (98-107) L 02/15/17 05:00 Carbon Dioxide 24.5 mEq/L (21.0-31.0) 02/15/17 05:00 Anion Gap 19.1 (7.0-16.0) H 02/15/17 05:00 BUN 38 mg/dL (7-25) H 02/15/17 05:00 Creatinine 2.1 mg/dL (0.6-1.2) H 02/15/17 05:00 Est GFR ( Amer) 30.4 ml/min (>90) 02/15/17 05:00 Est GFR (Non-Af Amer) 25.1 ml/min 02/15/17 05:00 BUN/Creatinine Ratio 18.1 02/15/17 05:00 Glucose 134 mg/dL (70-105) H 02/15/17 05:00 POC Glucose 170 MG/DL (70 - 105) H 02/12/17 09:42 Hemoglobin A1c % 5.1 % (4.0-6.0) 02/11/17 08:11 Whole Bld Lactic Acid 3.54 mmol/L (0.60-1.99) H* 02/15/17 07:30 Uric Acid 11.2 mg/dL (2.3-6.6) H 02/15/17 05:00 Calcium 8.4 mg/dL (8.6-10.3) L 02/15/17 05:00 Phosphorus 3.8 mg/dL (2.5-5.0) 02/15/17 05:00 Magnesium 1.8 mg/dL (1.9-2.7) L 02/15/17 05:00 Total Bilirubin 1.6 mg/dL (0.3-1.0) H 02/15/17 05:00 AST 265 U/L (13-39) H 02/15/17 05:00 ALT 59 U/L (7-52) H 02/15/17 05:00 Alkaline Phosphatase 180 U/L (34-104) H 02/15/17 05:00 Creatine Kinase 67 U/L (30-223) 02/12/17 04:41 CK-MB (CK-2) 1.1 ng/mL (0.6-6.3) 02/09/17 20:27 Troponin I 0.01 ng/mL (0.01-0.05) 02/09/17 20:27 B-Natriuretic Peptide 2760.0 pg/mL (5.0-100.0) H 02/14/17 06:00 Total Protein 5.8 gm/dL (6.0-8.3) L 02/15/17 05:00 Albumin 3.4 gm/dL (3.7-5.3) L 02/15/17 05:00 Globulin 2.4 gm/dL 02/15/17 05:00 Albumin/Globulin Ratio 1.4 (1.0-1.8) 02/15/17 05:00 Amylase 23 U/L (29-103) L 02/13/17 05:03 Lipase 13 U/L (11-82) 02/13/17 05:03 Urine Source ZEE [place] 02/14/17 17:40 Urine Color YELLOW 02/14/17 17:40 Urine Clarity SLIGHT HAZY (CLEAR) 02/14/17 17:40 Urine pH 5.5 07 17:40 Ur Specific [place] 1.020 (1.005-1.030) 02/14/17 17:40 Urine Protein 100 mg/dL (NEGATIVE) H 02/14/17 17:40 Urine Glucose (UA) NEGATIVE mg/dL (NEGATIVE) 02/14/17 17:40 Urine Ketones NEGATIVE mg/dL (NEGATIVE) 02/14/17 17:40 Urine Blood MODERATE (NEGATIVE) H 02/14/17 17:40 Urine Nitrate NEGATIVE (NEGATIVE) 02/14/17 17:40 Urine Bilirubin NEGATIVE (NEGATIVE) 02/14/17 17:40 Urine Urobilinogen 0.2 E.U./dL (0.2 - 1.0) 02/14/17 17:40 Ur Leukocyte Esterase NEGATIVE (NEGATIVE) 02/14/17 17:40 Urine RBC 2-5 /hpf (0-5) 02/14/17 17:40 Urine WBC 2-5 /hpf (0-5) 02/14/17 17:40 Ur Epithelial Cells FEW /lpf (FEW) 02/14/17 17:40 Amorphous Sediment MANY URATES (NONE SEEN) 02/14/17 17:40 Urine Bacteria MODERATE /hpf (NONE SEEN) 02/14/17 17:40 Hyaline Casts 0-2 /lpf (0-2) H 02/09/17 21:05 Urine Yeast FEW /hpf (NONE SEEN) H 02/14/17 17:40 Ur Random Sodium 37 mmol/L 02/14/17 17:40 Urine Creatinine 53.0 mg/dl (28.0-217.0) 02/14/17 17:40 Stool Leukocyte NO WBC SEEN 02/12/17 00:05 - Physical Exam Vitals and I&O: Vital Signs Temp 97.8 F 02/15/17 04:00 Pulse 86 02/15/17 07:00 Resp 16 02/15/17 07:00 BP 112/91 02/15/17 09:33 Pulse Ox 98 02/15/17 07:00 Intake & Output 02/14/17 02/15/1702/15/17 18:59 06:59 18:59 Intake Total 694.262 554.333 125 Output Total 175 130 Balance 519.262 424.333 125 Weight (lbs) 78.471 kg 81.873 kg Intake: Intake, IV Amount 594.262 204.333 125 Diltiazem 125 mg In 125 125 Dextrose 5% 100 ml @ 10 MG/HR 10 mls/hr IV TITR PATRICIA Rx#:[id number] Norepinephrine 8 mg In 369.262 104.333 Dextrose 5% 250 ml @ 40 MCG/MIN 77.4 mls/hr IV TITR PRN Rx#:[id number] Piperacillin Sodium/ 100 100 Tazobact 4.5 gm In Sodium Chloride 0.9% 100 ml @ 100 mls/hr IV Q8HR PATRICIA Rx #:[id number] Oral 100 150 Other 200 Output: Urine 175 130 Other: # Bowel Movements 1 1 Active Medications: Current Medications Acetaminophen (Tylenol) 650 mg PO Q4HR PRN PRN Reason: TEMP >100 OR PAIN Stop: 04/11/17 15:21 Acetaminophen/Codeine Phosphate (Tylenol W/Codeine #3) 1 tab PO Q6HR PRN PRN Reason: MODERATE PAIN Stop: 04/11/17 15:21 Last Admin: 02/14/17 02:08 Dose: 1 tab Acetaminophen/Hydrocodone Bitart ([place] 5mg/325mg) 2 tab PO Q4H PRN PRN Reason: Severe Pain Stop: 04/11/17 15:21 Last Admin: 02/15/17 00:06 Dose: 2 tab Albuterol Sulfate (Albuterol 2.5mg/3ml Neb Ud) 2.5 mg HHN Q4HRT PRN PRN Reason: Wheezing Stop: 04/13/17 08:21 Last Admin: 02/14/17 15:54 Dose: 2.5 mg Ascorbic Acid (Vitamin C) 500 mg PO DAILY PATRICIA Stop: 04/12/17 08:59 Last Admin: 02/15/17 09:33 Dose: 500 mg Atorvastatin Calcium (Lipitor) 10 mg PO HS PATRICIA PRN Reason: Protocol Stop: 04/11/17 20:59 Last Admin: 02/14/17 20:49 Dose: 10 mg Furosemide (Lasix) 40 mg IVP BID PATRICIA Stop: 04/14/17 08:59 Last Admin: 02/15/17 09:33 Dose: 40 mg Piperacillin Sod/Tazobactam (Sod 4.5 gm/ Sodium Chloride) 100 mls @ 100 mls/hr IV Q8HR PATRICIA Stop: 04/11/17 13:59 Last Admin: 02/15/17 05:23 Dose: 100 mls/hr Norepinephrine Bitartrate 8 mg (/ Dextrose) 258 mls @ 77.4 mls/hr IV TITR PRN; Protocol; 40 MCG/MIN PRN Reason: BP MAINTENANCE (PER PROTOCOL) Stop: 04/12/17 07:46 Last Admin: 02/15/17 01:45 Dose: 5.16 mcg/min, 9.98 mls/hr Diltiazem HCl 125 mg/ Dextrose 125 mls @ 10 mls/hr IV TITR PATRICIA; 10 MG/HR PRN Reason: Protocol Stop: 04/15/17 04:29 Last Titration: 02/15/17 10:18 Dose: Infused Sodium Chloride (Nacl 0.45%) 1,000 mls @ 0 mls/hr IV .Q0M PATRICIA PRN Reason: KVO Stop: 04/15/17 10:13 Last Admin: 02/14/17 11:04 Dose: 10 mls/hr Lactobacillus Rhamnosus (Culturelle) 1 each PO DAILY [facility] Stop: 04/13/17 08:59 Last Admin: 02/15/17 09:33 Dose: 1 each Methylprednisolone Sodium Succinate (Solu-Medrol) 20 mg IVP Q8HR [facility] Stop: 04/14/17 12:59 Last Admin: 02/15/17 05:23 Dose: 20 mg Miscellaneous (Probiotic Screen) 1 ea MC PRN PRN PRN Reason: PROTOCOL Stop: 04/12/17 09:13 Ondansetron HCl (Zofran) 4 mg IV Q8H PRN PRN Reason: Nausea / Vomiting Stop: 04/11/17 08:23 Last Admin: 02/12/17 00:59 Dose: 4 mg Pantoprazole Sodium (Protonix) 40 mg PO DAILY [facility] Stop: 04/12/17 08:59 Last Admin: 02/15/17 09:32 Dose: 40 mg General: no acute distress, well developed, well nourished HEENT: atraumatic, normocephalic, PERRLA, EOMI Neck: supple, no thyromegaly Cardiovascular: S1S2, regular Lungs: clear to percussion, crackles Abdomen: soft, bowel sounds, no tender, no distended, no mass, no rebound, no hepatomegaly, no splenomegaly Extremities: other (left knee ok, surgical wound is healing well.), no cyanosis , no clubbing, no edema Neurological: awake, alert, oriented Infectious Disease Assmt/Plan - Problem List Patient Problems: All Active Problems NAUSEA AND VOMITING WITH DEHYDRATION (Acute) - Assessment Assessment: 1. Septic shock. Improving. lactic acidosis. 2. Hypotension. Dehydration, sepsis. septic shock. Improving. 3. H/o HTN. 4. H/o Anemia. 5. Metabolic acidosis, improved. 6. SU, ? ATN. 7. Small superficial leg wound at the distal end, no sign of infection. 8. CHF. 9. H/O Left TKR. no clinical sign of infection. h/o prosthesis infection, treated recently. 10. Suspect aspiration pneumonia. 11. elevated liver enzymes. 12. Leukocytosis, without bandemia, ? steroid ? Sepsis. Recommendations: Antibiotic cheek, continue zosyn. wound care. Nutritional Asmnt/Malnutr-PDOC - Dietary Evaluation Malnutrition Findings (Please click <Entered> for more info): Nutritional Asmnt/Malnutrition Start: 02/14/17 13: 04 Text: Status: Complete Freq: Document 02/14/17 13:05 GSUN (Rec: 02/14/17 13:21 GSUN [id number]) Nutritional Asmnt/Malnutrition Patient General Information Nutritional Screening Moderate Risk Screening Pertinent Medical Hx/Surgical Hx Dx: Septic shock, hypotension, dehydration, metabolic acidosis improved, SU ?ATN, suspect aspiration PNA HTN, left knee prothesis, dyslipidemia, anemia Subjective Information 66 year old female, Yoruba speaking. Pt was receiving breathing treatment during critical access hospital visit. Observed clear liquid tray at bedside. MD progress note 02/13: DC NG tube and start PO as tolerated. Spoke to STEFANIE Mayorga RN stated for breakfast pt tolerated 2 juices, declined broth, RN will remove mask and encourage lunch shortly. No significant wasting noted. 02/11 KUB: mild ielus. Current Diet Order/ Nutrition Support Clear liquid Pertinent Medications Vitamin C, Lipitor, Culturelle , Solu-Medrol, Zofran, Protonix, Nacl 0.45% Pertinent Labs 02/13: potassium 3L 02/14: BUN 30H, creatinine 1.8H (declining) Nutritional Hx/Data Height 1.68 m Height (Calculated Centimeters) 167.6 Current Weight (lbs) 75.75 kg Weight (Calculated Kilograms) 75.7 Weight (Calculated Grams) 54017.9 [place] Body Weight 130 Weight Status Overweight GI Symptoms Skin Integrity/Comment: Josias 14. Non-pitting edema bilateral feet. property assessment monitor: skin tears. Estimated Nutritional Goals Calories/Kcals/Kg IBW 130lb/59.1kg Kcals Calculated 1478-1773kcal (25-30kcal/kg) Protein Calculated 59g (1g/kg) Fluid: ml 1478-1773ml (1ml/kcal) Nutritional Problem 1. Problem Problem Impaired nutrient utilization related to Etiology renal dysfunction, per MD note SU ?ATN Signs/Symptoms: BUN 30H, creatinine 1.8H Intervention/Recommendation Comments 1. Recommend advance diet as tolerated to low sodium diet, to aid in renal function. No renal restriction due to hx of hypokalemia. Expected Outcomes/Goals Expected Outcomes/Goals 1. Pt to resume diet and meet at least 75% fo estimated nutritional needs.
--- NOTE | 2017-02-15 11:52 | General Progress Note ---
Subjective - Review of Systems Service Date: 02/15/17 Subjective: pt feels better today denies any pain patient is in no acute distress Objective - Results Result Diagrams: 02/15/17 05:00 02/15/17 05:00 Recent Labs: Laboratory Last Values WBC 13.8 Th/cmm (4.8-10.8) H D 02/15/17 05:00 RBC 3.39 Mil/cmm (3.80-5.20) L 02/15/17 05:00 Hgb 9.5 gm/dL (11.7-16.1) L 02/15/17 05:00 Hct 28.4 % (35.0-45.0) L 02/15/17 05:00 MCV 83.5 fl (81-100) 02/15/17 05:00 MCH 28.1 pg (27.0-31.0) 02/15/17 05:00 MCHC Differential 33.6 pg (28.0-36.0) 02/15/17 05:00 RDW 17.1 % (11.5-20.0) 02/15/17 05:00 Plt Count 195 Th/cmm (150-400) 02/15/17 05:00 MPV 10.4 fl 02/15/17 05:00 Band Neutrophils % 1 % (0-10) 02/15/17 05:00 Neutrophils (Manual) 80 % (40-80) 02/15/17 05:00 Lymphocytes 9 % (20-50) L 02/15/17 05:00 Monocytes 9 % (2-10) 02/15/17 05:00 Eosinophils 1 % (0-5) 02/15/17 05:00 Basophils 1 % (0-3) 02/09/17 20:27 Platelet Estimate ADEQUATE (NORMAL) 02/15/17 05:00 Platelet Morphology NORMAL (NORMAL) 02/09/17 20:27 Eos Smear Source URINE 02/14/17 17:40 Eos Smear Total Cells NONE SEEN (NONE SEEN) 02/14/17 17:40 PT 12.3 SECONDS (9.5-11.5) H 02/09/17 20:27 INR 1.17 (0.5-1.4) 02/09/17 20:27 PTT (Actin FS) 25.6 SECONDS (26.0-38.0) L 02/09/17 20:27 Specimen Source Arterial 02/14/17 16:00 Sample Site Right Radial 02/14/17 16:00 pH 7.40 (7.35-7.45) 02/14/17 16:00 pCO2 33.0 mmHg (35.0-45.0) L 02/14/17 16:00 pO2 103.0 mmHg (80.0-100.0) H 02/14/17 16:00 HCO3 22.1 mEq/L (20.0-26.0) 02/14/17 16:00 Base Excess -3.6 mEq/L (-3.0-3.0) L 02/14/17 16:00 O2 Saturation 98.0 % (92.0-100.0) 02/14/17 16:00 Robin Test Positive 02/14/17 16:00 Vent Rate 12 02/14/17 16:00 Inspired O2 40 02/14/17 16:00 Tidal Volume NA 02/14/17 16:00 PEEP 6 02/14/17 16:00 Pressure (ins/psv/peep) 6 02/14/17 16:00 Critical Value LZHANG 02/14/17 16:00 Sodium 133 mEq/L (136-145) L 02/15/17 05:00 Potassium 3.6 mEq/L (3.5-5.1) 02/15/17 05:00 Chloride 93 mEq/L (98-107) L 02/15/17 05:00 Carbon Dioxide 24.5 mEq/L (21.0-31.0) 02/15/17 05:00 Anion Gap 19.1 (7.0-16.0) H 02/15/17 05:00 BUN 38 mg/dL (7-25) H 02/15/17 05:00 Creatinine 2.1 mg/dL (0.6-1.2) H 02/15/17 05:00 Est GFR ( Amer) 30.4 ml/min (>90) 02/15/17 05:00 Est GFR (Non-Af Amer) 25.1 ml/min 02/15/17 05:00 BUN/Creatinine Ratio 18.1 02/15/17 05:00 Glucose 134 mg/dL (70-105) H 02/15/17 05:00 POC Glucose 170 MG/DL (70 - 105) H 02/12/17 09:42 Hemoglobin A1c % 5.1 % (4.0-6.0) 02/11/17 08:11 Whole Bld Lactic Acid 3.54 mmol/L (0.60-1.99) H* 02/15/17 07:30 Uric Acid 11.2 mg/dL (2.3-6.6) H 02/15/17 05:00 Calcium 8.4 mg/dL (8.6-10.3) L 02/15/17 05:00 Phosphorus 3.8 mg/dL (2.5-5.0) 02/15/17 05:00 Magnesium 1.8 mg/dL (1.9-2.7) L 02/15/17 05:00 Total Bilirubin 1.6 mg/dL (0.3-1.0) H 02/15/17 05:00 AST 265 U/L (13-39) H 02/15/17 05:00 ALT 59 U/L (7-52) H 02/15/17 05:00 Alkaline Phosphatase 180 U/L (34-104) H 02/15/17 05:00 Creatine Kinase 67 U/L (30-223) 02/12/17 04:41 CK-MB (CK-2) 1.1 ng/mL (0.6-6.3) 02/09/17 20:27 Troponin I 0.01 ng/mL (0.01-0.05) 02/09/17 20:27 B-Natriuretic Peptide 2760.0 pg/mL (5.0-100.0) H 02/14/17 06:00 Total Protein 5.8 gm/dL (6.0-8.3) L 02/15/17 05:00 Albumin 3.4 gm/dL (3.7-5.3) L 02/15/17 05:00 Globulin 2.4 gm/dL 02/15/17 05:00 Albumin/Globulin Ratio 1.4 (1.0-1.8) 02/15/17 05:00 Amylase 23 U/L (29-103) L 02/13/17 05:03 Lipase 13 U/L (11-82) 02/13/17 05:03 Urine Source ZEE PORT 02/14/17 17:40 Urine Color YELLOW 02/14/17 17:40 Urine Clarity SLIGHT HAZY (CLEAR) 02/14/17 17:40 Urine pH 5.5 07 17:40 Ur Specific [place] 1.020 (1.005-1.030) 02/14/17 17:40 Urine Protein 100 mg/dL (NEGATIVE) H 02/14/17 17:40 Urine Glucose (UA) NEGATIVE mg/dL (NEGATIVE) 02/14/17 17:40 Urine Ketones NEGATIVE mg/dL (NEGATIVE) 02/14/17 17:40 Urine Blood MODERATE (NEGATIVE) H 02/14/17 17:40 Urine Nitrate NEGATIVE (NEGATIVE) 02/14/17 17:40 Urine Bilirubin NEGATIVE (NEGATIVE) 02/14/17 17:40 Urine Urobilinogen 0.2 E.U./dL (0.2 - 1.0) 07 17:40 Ur Leukocyte Esterase NEGATIVE (NEGATIVE) 02/14/17 17:40 Urine RBC 2-5 /hpf (0-5) 02/14/17 17:40 Urine WBC 2-5 /hpf (0-5) 02/14/17 17:40 Ur Epithelial Cells FEW /lpf (FEW) 02/14/17 17:40 Amorphous Sediment MANY URATES (NONE SEEN) 02/14/17 17:40 Urine Bacteria MODERATE /hpf (NONE SEEN) 02/14/17 17:40 Hyaline Casts 0-2 /lpf (0-2) H 02/09/17 21:05 Urine Yeast FEW /hpf (NONE SEEN) H 02/14/17 17:40 Ur Random Sodium 37 mmol/L 02/14/17 17:40 Urine Creatinine 53.0 mg/dl (28.0-217.0) 02/14/17 17:40 Stool Leukocyte NO WBC SEEN 02/12/17 00:05 - Physical Exam Vitals and I&O: Vital Signs Temp 97.8 F 02/15/17 04:00 Pulse 86 02/15/17 07:00 Resp 16 02/15/17 07:00 BP 112/91 02/15/17 09:33 Pulse Ox 98 02/15/17 08:00 Intake & Output 02/14/17 02/15/17 02/15/17 18:59 06:59 18:59 Intake Total 694.262 554.333 125 Output Total 175 130 Balance 519.262 424.333 125 Weight (lbs) 78.471 kg 81.873 kg Intake: Intake, IV Amount 594.262 204.333 125 Diltiazem 125 mg In 125 125 Dextrose 5% 100 ml @ 10 MG/HR 10 mls/hr IV TITR PATRICIA Rx#:[id number] Norepinephrine 8 mg In 369.262 104.333 Dextrose 5% 250 ml @ 40 MCG/MIN 77.4 mls/hr IV TITR PRN Rx#:[id number] Piperacillin Sodium/ 100 100 Tazobact 4.5 gm In Sodium Chloride 0.9% 100 ml @ 100 mls/hr IV Q8HR PATRICIA Rx #:[id number] Oral 100 150 Other 200 Output: Urine 175 130 Other: # Bowel Movements 1 1 Active Medications: Current Medications Acetaminophen (Tylenol) 650 mg PO Q4HR PRN PRN Reason: TEMP >100 OR PAIN Stop: 04/11/17 15:21 Acetaminophen/Codeine Phosphate (Tylenol W/Codeine #3) 1 tab PO Q6HR PRN PRN Reason: MODERATE PAIN Stop: 04/11/17 15:21 Last Admin: 02/14/17 02:08 Dose: 1 tab Acetaminophen/Hydrocodone Bitart ([place] 5mg/325mg) 2 tab PO Q4H PRN PRN Reason: Severe Pain Stop: 04/11/17 15:21 Last Admin: 02/15/17 00:06 Dose: 2 tab Albuterol Sulfate (Albuterol 2.5mg/3ml Neb Ud) 2.5 mg HHN Q4HRT PRN PRN Reason: Wheezing Stop: 04/13/17 08:21 Last Admin: 02/14/17 15:54 Dose: 2.5 mg Ascorbic Acid (Vitamin C) 500 mg PO DAILY PATRICIA Stop: 04/12/17 08:59 Last Admin: 02/15/17 09:33 Dose: 500 mg Atorvastatin Calcium (Lipitor) 10 mg PO HS PATRICIA PRN Reason: Protocol Stop: 04/11/17 20:59 Last Admin: 02/14/17 20:49 Dose: 10 mg Furosemide (Lasix) 40 mg IVP BID PATRICIA Stop: 04/14/17 08:59 Last Admin: 02/15/17 09:33 Dose: 40 mg Piperacillin Sod/Tazobactam (Sod 4.5 gm/ Sodium Chloride) 100 mls @ 100 mls/hr IV Q8HR PATRICIA Stop: 04/11/17 13:59 Last Admin: 02/15/17 05:23 Dose: 100 mls/hr Norepinephrine Bitartrate 8 mg (/ Dextrose) 258 mls @ 77.4 mls/hr IV TITR PRN; Protocol; 40 MCG/MIN PRN Reason: BP MAINTENANCE (PER PROTOCOL) Stop: 04/12/17 07:46 Last Admin: 02/15/17 01:45 Dose: 5.16 mcg/min, 9.98 mls/hr Diltiazem HCl 125 mg/ Dextrose 125 mls @ 10 mls/hr IV TITR PATRICIA; 10 MG/HR PRN Reason: Protocol Stop: 04/15/17 04:29 Last Titration: 02/15/17 10:18 Dose: Infused Sodium Chloride (Nacl 0.45%) 1,000 mls @ 0 mls/hr IV .Q0M PATRICIA PRN Reason: KVO Stop: 04/15/17 10:13 Last Admin: 02/14/17 11:04 Dose: 10 mls/hr Lactobacillus Rhamnosus (Culturelle) 1 each PO DAILY PATRICIA Stop: 04/13/17 08:59 Last Admin: 02/15/17 09:33 Dose: 1 each Methylprednisolone Sodium Succinate (Solu-Medrol) 20 mg IVP Q8HR PATRICIA Stop: 04/14/17 12:59 Last Admin: 02/15/17 05:23 Dose: 20 mg Miscellaneous (Probiotic Screen) 1 ea MC PRN PRN PRN Reason: PROTOCOL Stop: 04/12/17 09:13 Ondansetron HCl (Zofran) 4 mg IV Q8H PRN PRN Reason: Nausea / Vomiting Stop: 04/11/17 08:23 Last Admin: 02/12/17 00:59 Dose: 4 mg Pantoprazole Sodium (Protonix) 40 mg PO DAILY [facility] Stop: 04/12/17 08:59 Last Admin: 02/15/17 09:32 Dose: 40 mg General: No acute distress HEENT: Atraumatic Cardiovascular: Regular rate Assessment/Plan - Problem List Patient Problems: All Active Problems NAUSEA AND VOMITING WITH DEHYDRATION (Acute) - Assessment Assessment: Current Active Problems Problem Status Onset NAUSEA AND VOMITING WITH DEHYDRATION Acute leukocytosis distended gall bladder r/o chelocystitis trachycardia - Plan Plan: as per order sheet Nutritional Asmnt/Malnutr-PDOC - Dietary Evaluation Malnutrition Findings (Please click <Entered> for more info): Nutritional Asmnt/Malnutrition Start: 02/14/17 13: 04 Text: Status: Complete Freq: Document 02/14/17 13:05 DREACB (Rec: 02/14/17 13:21 [id number]) Nutritional Asmnt/Malnutrition Patient General Information Nutritional Screening Moderate Risk Screening Pertinent Medical Hx/Surgical Hx Dx: Septic shock, hypotension, dehydration, metabolic acidosis improved, SU ?ATN, suspect aspiration PNA HTN, left knee prothesis, dyslipidemia, anemia Subjective Information 66 year old female, Romanian speaking. Pt was receiving breathing treatment during [facility]. Observed clear liquid tray at bedside. MD progress note 02/13: DC NG tube and start PO as tolerated. Spoke to RN STEFANIE Mayorga stated for breakfast pt tolerated 2 juices, declined broth, RN will remove mask and encourage lunch shortly. No significant wasting noted. 02/11 KUB: mild ielus. Current Diet Order/ Nutrition Support Clear liquid Pertinent Medications Vitamin C, Lipitor, Culturelle , Solu-Medrol, Zofran, Protonix, Nacl 0.45% Pertinent Labs 02/13: potassium 3L 02/14: BUN 30H, creatinine 1.8H (declining) Nutritional Hx/Data Height 1.68 m Height (Calculated Centimeters) 167.6 Current Weight (lbs) 75.75 kg Weight (Calculated Kilograms) 75.7 Weight (Calculated Grams) 20422.9 [place] Body Weight 130 Weight Status Overweight GI Symptoms Skin Integrity/Comment: Josias 14. Non-pitting edema bilateral feet. hydrator: skin tears. Estimated Nutritional Goals Calories/Kcals/Kg IBW 130lb/59.1kg Kcals Calculated 1478-1773kcal (25-30kcal/kg) Protein Calculated 59g (1g/kg) Fluid: ml 1478-1773ml (1ml/kcal) Nutritional Problem 1. Problem Problem Impaired nutrient utilization related to Etiology renal dysfunction, per MD note SU ?ATN Signs/Symptoms: BUN 30H, creatinine 1.8H Intervention/Recommendation Comments 1. Recommend advance diet as tolerated to low sodium diet, to aid in renal function. No renal restriction due to hx of hypokalemia. Expected Outcomes/Goals Expected Outcomes/Goals 1. Pt to resume diet and meet at least 75% fo estimated nutritional needs.
[2017-02-15 12:12] LABS: MICROALBUMIN RANDOM RUINE 332.1 ug/mL (Not Estab.)
--- NOTE | 2017-02-15 13:05 | General Progress Note ---
Subjective - Review of Systems Service Date: 02/15/17 Subjective: Sleeping, comfortable Objective - Results Result Diagrams: 02/15/17 05:00 02/15/17 05:00 Recent Labs: Laboratory Last Values WBC 13.8 Th/cmm (4.8-10.8) H D 02/15/17 05:00 RBC 3.39 Mil/cmm (3.80-5.20) L 02/15/17 05:00 Hgb 9.5 gm/dL (11.7-16.1) L 02/15/17 05:00 Hct 28.4 % (35.0-45.0) L 02/15/17 05:00 MCV 83.5 fl (81-100) 02/15/17 05:00 MCH 28.1 pg (27.0-31.0) 02/15/17 05:00 MCHC Differential 33.6 pg (28.0-36.0) 02/15/17 05:00 RDW 17.1 % (11.5-20.0) 02/15/17 05:00 Plt Count 195 Th/cmm (150-400) 02/15/17 05:00 MPV 10.4 fl 02/15/17 05:00 Band Neutrophils % 1 % (0-10) 02/15/17 05:00 Neutrophils (Manual) 80 % (40-80) 02/15/17 05:00 Lymphocytes 9 % (20-50) L 02/15/17 05:00 Monocytes 9 % (2-10) 02/15/17 05:00 Eosinophils 1 % (0-5) 02/15/17 05:00 Basophils 1 % (0-3) 02/09/17 20:27 Platelet Estimate ADEQUATE (NORMAL) 02/15/17 05:00 Platelet Morphology NORMAL (NORMAL) 02/09/17 20:27 Eos Smear Source URINE 02/14/17 17:40 Eos Smear Total Cells NONE SEEN (NONE SEEN) 02/14/17 17:40 PT 12.3 SECONDS (9.5-11.5) H 02/09/17 20:27 INR 1.17 (0.5-1.4) 02/09/17 20:27 PTT (Actin FS) 25.6 SECONDS (26.0-38.0) L 02/09/17 20:27 Specimen Source Arterial 02/14/17 16:00 Sample Site Right Radial 02/14/17 16:00 pH 7.40 (7.35-7.45) 02/14/17 16:00 pCO2 33.0 mmHg (35.0-45.0) L 02/14/17 16:00 pO2 103.0 mmHg (80.0-100.0) H 02/14/17 16:00 HCO3 22.1 mEq/L (20.0-26.0) 02/14/17 16:00 Base Excess -3.6 mEq/L (-3.0-3.0) L 02/14/17 16:00 O2 Saturation 98.0 % (92.0-100.0) 02/14/17 16:00 Robin Test Positive 02/14/17 16:00 Vent Rate 12 02/14/17 16:00 Inspired O2 40 02/14/17 16:00 Tidal Volume NA 02/14/17 16:00 PEEP 6 02/14/17 16:00 Pressure (ins/psv/peep) 6 02/14/17 16:00 Critical Value LZHANG 02/14/17 16:00 Sodium 133 mEq/L (136-145) L 02/15/17 05:00 Potassium 3.6 mEq/L (3.5-5.1) 02/15/17 05:00 Chloride 93 mEq/L (98-107) L 02/15/17 05:00 Carbon Dioxide 24.5 mEq/L (21.0-31.0) 02/15/17 05:00 Anion Gap 19.1 (7.0-16.0) H 02/15/17 05:00 BUN 38 mg/dL (7-25) H 02/15/17 05:00 Creatinine 2.1 mg/dL (0.6-1.2) H 02/15/17 05:00 Est GFR ( Amer) 30.4 ml/min (>90) 02/15/17 05:00 Est GFR (Non-Af Amer) 25.1 ml/min 02/15/17 05:00 BUN/Creatinine Ratio 18.1 02/15/17 05:00 Glucose 134 mg/dL (70-105) H 02/15/17 05:00 POC Glucose 170 MG/DL (70 - 105) H 02/12/17 09:42 Hemoglobin A1c % 5.1 % (4.0-6.0) 02/11/17 08:11 Whole Bld Lactic Acid 3.54 mmol/L (0.60-1.99) H* 02/15/17 07:30 Uric Acid 11.2 mg/dL (2.3-6.6) H 02/15/17 05:00 Calcium 8.4 mg/dL (8.6-10.3) L 02/15/17 05:00 Phosphorus 3.8 mg/dL (2.5-5.0) 02/15/17 05:00 Magnesium 1.8 mg/dL (1.9-2.7) L 02/15/17 05:00 Total Bilirubin 1.6 mg/dL (0.3-1.0) H 02/15/17 05:00 AST 265 U/L (13-39) H 02/15/17 05:00 ALT 59 U/L (7-52) H 02/15/17 05:00 Alkaline Phosphatase 180 U/L (34-104) H 02/15/17 05:00 Creatine Kinase 67 U/L (30-223) 02/12/17 04:41 CK-MB (CK-2) 1.1 ng/mL (0.6-6.3) 02/09/17 20:27 Troponin I 0.01 ng/mL (0.01-0.05) 02/09/17 20:27 B-Natriuretic Peptide 2760.0 pg/mL (5.0-100.0) H 02/14/17 06:00 Total Protein 5.8 gm/dL (6.0-8.3) L 02/15/17 05:00 Albumin 3.4 gm/dL (3.7-5.3) L 02/15/17 05:00 Globulin 2.4 gm/dL 02/15/17 05:00 Albumin/Globulin Ratio 1.4 (1.0-1.8) 02/15/17 05:00 Amylase 23 U/L (29-103) L 02/13/17 05:03 Lipase 13 U/L (11-82) 02/13/17 05:03 Urine Source [place] 02/14/17 17:40 Urine Color YELLOW 02/14/17 17:40 Urine Clarity SLIGHT HAZY (CLEAR) 02/14/17 17:40 Urine pH 5.5 07 17:40 Ur Specific [place] 1.020 (1.005-1.030) 02/14/17 17:40 Urine Protein 100 mg/dL (NEGATIVE) H 02/14/17 17:40 Urine Glucose (UA) NEGATIVE mg/dL (NEGATIVE) 02/14/17 17:40 Urine Ketones NEGATIVE mg/dL (NEGATIVE) 02/14/17 17:40 Urine Blood MODERATE (NEGATIVE) H 02/14/17 17:40 Urine Nitrate NEGATIVE (NEGATIVE) 02/14/17 17:40 Urine Bilirubin NEGATIVE (NEGATIVE) 02/14/17 17:40 Urine Urobilinogen 0.2 E.U./dL (0.2 - 1.0) 02/14/17 17:40 Ur Leukocyte Esterase NEGATIVE (NEGATIVE) 02/14/17 17:40 Urine RBC 2-5 /hpf (0-5) 02/14/17 17:40 Urine WBC 2-5 /hpf (0-5) 02/14/17 17:40 Ur Epithelial Cells FEW /lpf (FEW) 02/14/17 17:40 Amorphous Sediment MANY URATES (NONE SEEN) 02/14/17 17:40 Urine Bacteria MODERATE /hpf (NONE SEEN) 02/14/17 17:40 Hyaline Casts 0-2 /lpf (0-2) H 02/09/17 21:05 Urine Yeast FEW /hpf (NONE SEEN) H 02/14/17 17:40 Ur Random Sodium 37 mmol/L 02/14/17 17:40 Urine Creatinine 32.9 mg/dl (Not Estab.) 02/14/17 21:55 Urine Microalbumin 332.1 ug/mL (Not Estab.) 02/14/17 21:55 Microalb/Creat Ratio 1009.4 mg/g creat (0.0-30.0) H 02/14/17 21:55 Stool Leukocyte NO WBC SEEN 02/12/17 00:05 - Physical Exam Vitals and I&O: Vital Signs Temp 97.8 F 02/15/17 04:00 Pulse 89 02/15/17 12:15 Resp 16 02/15/17 07:00 BP 115/74 02/15/17 12:15 Pulse Ox 98 02/15/17 08:00 Intake & Output 02/14/17 02/15/17 02/15/17 18:59 06:59 18:59 Intake Total 694.262 554.333 125 Output Total 175 130 Balance 519.262 424.333 125 Weight (lbs) 78.471 kg 81.873 kg Intake: Intake, IV Amount 594.262 204.333 125 Diltiazem 125 mg In 125 125 Dextrose 5% 100 ml @ 10 MG/HR 10 mls/hr IV TITR PATRICIA Rx#:[id number] Norepinephrine 8 mg In 369.262 104.333 Dextrose 5% 250 ml @ 40 MCG/MIN 77.4 mls/hr IV TITR PRN Rx#:[id number] Piperacillin Sodium/ 100 100 Tazobact 4.5 gm In Sodium Chloride 0.9% 100 ml @ 100 mls/hr IV Q8HR PATRICIA Rx #:[id number] Oral 100 150 Other 200 Output: Urine 175 130 Other: # Bowel Movements 1 1 Active Medications: Current Medications Acetaminophen (Tylenol) 650 mg PO Q4HR PRN PRN Reason: TEMP >100 OR PAIN Stop: 04/11/17 15:21 Acetaminophen/Codeine Phosphate (Tylenol W/Codeine #3) 1 tab PO Q6HR PRN PRN Reason: MODERATE PAIN Stop: 04/11/17 15:21 Last Admin: 02/14/17 02:08 Dose: 1 tab Acetaminophen/Hydrocodone Bitart ([place] 5mg/325mg) 2 tab PO Q4H PRN PRN Reason: Severe Pain Stop: 04/11/17 15:21 Last Admin: 02/15/17 00:06 Dose: 2 tab Albuterol Sulfate (Albuterol 2.5mg/3ml Neb Ud) 2.5 mg HHN Q4HRT PRN PRN Reason: Wheezing Stop: 04/13/17 08:21 Last Admin: 02/14/17 15:54 Dose: 2.5 mg Ascorbic Acid (Vitamin C) 500 mg PO DAILY PATRICIA Stop: 04/12/17 08:59 Last Admin: 02/15/17 09:33 Dose: 500 mg Atorvastatin Calcium (Lipitor) 10 mg PO HS PATRICIA PRN Reason: Protocol Stop: 04/11/17 20:59 Last Admin: 02/14/17 20:49 Dose: 10 mg Furosemide (Lasix) 40 mg IVP BID [facility] Stop: 04/14/17 08:59 Last Admin: 02/15/17 09:33 Dose: 40 mg Piperacillin Sod/Tazobactam (Sod 4.5 gm/ Sodium Chloride) 100 mls @ 100 mls/hr IV Q8HR [facility] Stop: 04/11/17 13:59 Last Admin: 02/15/17 05:23 Dose: 100 mls/hr Norepinephrine Bitartrate 8 mg (/ Dextrose) 258 mls @ 77.4 mls/hr IV TITR PRN; Protocol; 40 MCG/MIN PRN Reason: BP MAINTENANCE (PER PROTOCOL) Stop: 04/12/17 07:46 Last Admin: 02/15/17 01:45 Dose: 5.16 mcg/min, 9.98 mls/hr Diltiazem HCl 125 mg/ Dextrose 125 mls @ 10 mls/hr IV TITR PATRICIA; 10 MG/HR PRN Reason: Protocol Stop: 04/15/17 04:29 Last Titration: 02/15/17 10:18 Dose: Infused Sodium Chloride (Nacl 0.45%) 1,000 mls @ 0 mls/hr IV .Q0M PATRICIA PRN Reason: KVO Stop: 04/15/17 10:13 Last Admin: 02/14/17 11:04 Dose: 10 mls/hr Lactobacillus Rhamnosus (Culturelle) 1 each PO DAILY [facility] Stop: 04/13/17 08:59 Last Admin: 02/15/17 09:33 Dose: 1 each Methylprednisolone Sodium Succinate (Solu-Medrol) 20 mg IVP Q8HR [facility] Stop: 04/14/17 12:59 Last Admin: 02/15/17 05:23 Dose: 20 mg Miscellaneous (Probiotic Screen) 1 ea MC PRN PRN PRN Reason: PROTOCOL Stop: 04/12/17 09:13 Ondansetron HCl (Zofran) 4 mg IV Q8H PRN PRN Reason: Nausea / Vomiting Stop: 04/11/17 08:23 Last Admin: 02/12/17 00:59 Dose: 4 mg Pantoprazole Sodium (Protonix) 40 mg PO DAILY [facility] Stop: 04/12/17 08:59 Last Admin: 02/15/17 09:32 Dose: 40 mg General: No acute distress HEENT: Atraumatic Neck: Supple, +2 carotid pulse wo bruit Cardiovascular: Regular rate, Normal S1, Normal S2 Lungs: Other (few rhonchi) Abdomen: Bowel sounds, Soft Extremities: no Edema Neurological: Sensation intact Skin: no Rash Psych/Mental Status: Mood NL Assessment/Plan - Problem List Patient Problems: All Active Problems NAUSEA AND VOMITING WITH DEHYDRATION (Acute) - Assessment Assessment: Acute kidney injury secondary to acute tubular injury Fractional excretion of sodium is 1.1% suggestive of intrinsic renal failure Shock secondary to sepsis Distended gallbladder with normal acute cholecystitis Abdominal pain secondary to ileus Ileus secondary to sepsis Acute decompensation of congestive heart failure Respiratory failure secondary to aspiration pneumonia/CHF Anemia of chronic kidney disease Dyslipidemia Status post Infected prosthesis left knee, status post I&D Purely anion gap metabolic acidosis with respiratory alkalosis - Plan Plan: Lab - Result Diagrams 02/15/17 05:00 02/15/17 05:00 Current Medications Acetaminophen (Tylenol) 650 mg PO Q4HR PRN PRN Reason: TEMP >100 OR PAIN Stop: 04/11/17 15:21 Acetaminophen/Codeine Phosphate (Tylenol W/Codeine #3) 1 tab PO Q6HR PRN PRN Reason: MODERATE PAIN Stop: 04/11/17 15:21 Last Admin: 02/14/17 02:08 Dose: 1 tab Acetaminophen/Hydrocodone Bitart ([place] 5mg/325mg) 2 tab PO Q4H PRN PRN Reason: Severe Pain Stop: 04/11/17 15:21 Last Admin: 02/15/17 00:06 Dose: 2 tab Albuterol Sulfate (Albuterol 2.5mg/3ml Neb Ud) 2.5 mg HHN Q4HRT PRN PRN Reason: Wheezing Stop: 04/13/17 08:21 Last Admin: 02/14/17 15:54 Dose: 2.5 mg Ascorbic Acid (Vitamin C) 500 mg PO DAILY PATRICIA Stop: 04/12/17 08:59 Last Admin: 02/15/17 09:33 Dose: 500 mg Atorvastatin Calcium (Lipitor) 10 mg PO HS PATRICIA PRN Reason: Protocol Stop: 04/11/17 20:59 Last Admin: 02/14/17 20:49 Dose: 10 mg Furosemide (Lasix) 40 mg IVP BID PATRICIA Stop: 04/14/17 08:59 Last Admin: 02/15/17 09:33 Dose: 40 mg Piperacillin Sod/Tazobactam (Sod 4.5 gm/ Sodium Chloride) 100 mls @ 100 mls/hr IV Q8HR PATRICIA Stop: 04/11/17 13:59 Last Admin: 02/15/17 05:23 Dose: 100 mls/hr Norepinephrine Bitartrate 8 mg (/ Dextrose) 258 mls @ 77.4 mls/hr IV TITR PRN; Protocol; 40 MCG/MIN PRN Reason: BP MAINTENANCE (PER PROTOCOL) Stop: 04/12/17 07:46 Last Admin: 02/15/17 01:45 Dose: 5.16 mcg/min, 9.98 mls/hr Diltiazem HCl 125 mg/ Dextrose 125 mls @ 10 mls/hr IV TITR PATRICIA; 10 MG/HR PRN Reason: Protocol Stop: 04/15/17 04:29 Last Titration: 02/15/17 10:18 Dose: Infused Sodium Chloride (Nacl 0.45%) 1,000 mls @ 0 mls/hr IV .Q0M PATRICIA PRN Reason: KVO Stop: 04/15/17 10:13 Last Admin: 02/14/17 11:04 Dose: 10 mls/hr Lactobacillus Rhamnosus (Culturelle) 1 each PO DAILY [facility] Stop: 04/13/17 08:59 Last Admin: 02/15/17 09:33 Dose: 1 each Methylprednisolone Sodium Succinate (Solu-Medrol) 20 mg IVP Q8HR [facility] Stop: 04/14/17 12:59 Last Admin: 02/15/17 05:23 Dose: 20 mg Miscellaneous (Probiotic Screen) 1 ea MC PRN PRN PRN Reason: PROTOCOL Stop: 04/12/17 09:13 Ondansetron HCl (Zofran) 4 mg IV Q8H PRN PRN Reason: Nausea / Vomiting Stop: 04/11/17 08:23 Last Admin: 02/12/17 00:59 Dose: 4 mg Pantoprazole Sodium (Protonix) 40 mg PO DAILY [facility] Stop: 04/12/17 08:59 Last Admin: 02/15/17 09:32 Dose: 40 mg Kidney function worse with a BUN/creatinine of 38/2.1 Chest x-ray basically the same with bilateral effusions, pulmonary congestion Continue diuretics for now Levophed down to 2 mcg/m Monitor electrolytes and CBC along with chest x-ray Nutritional Asmnt/Malnutr-PDOC - Dietary Evaluation Malnutrition Findings (Please click <Entered> for more info): Nutritional Asmnt/Malnutrition Start: 02/14/17 13: 04 Text: Status: Complete Freq: Document 02/14/17 13:05 HERMANN (Rec: 02/14/17 13:21 [id number]) Nutritional Asmnt/Malnutrition Patient General Information Nutritional Screening Moderate Risk Screening Pertinent Medical Hx/Surgical Hx Dx: Septic shock, hypotension, dehydration, metabolic acidosis improved, SU ?ATN, suspect aspiration PNA HTN, left knee prothesis, dyslipidemia, anemia Subjective Information 66 year old female, Urdu speaking. Pt was receiving breathing treatment during community health visit. Observed clear liquid tray at bedside. MD progress note 02/13: DC NG tube and start PO as tolerated. Spoke to RN Tierar, STEFANIE stated for breakfast pt tolerated 2 juices, declined broth, RN will remove mask and encourage lunch shortly. No significant wasting noted. 02/11 KUB: mild ielus. Current Diet Order/ Nutrition Support Clear liquid Pertinent Medications Vitamin C, Lipitor, Culturelle , Solu-Medrol, Zofran, Protonix, Nacl 0.45% Pertinent Labs 02/13: potassium 3L 02/14: BUN 30H, creatinine 1.8H (declining) Nutritional Hx/Data Height 1.68 m Height (Calculated Centimeters) 167.6 Current Weight (lbs) 75.75 kg Weight (Calculated Kilograms) 75.7 Weight (Calculated Grams) 54445.9 [place] Body Weight 130 Weight Status Overweight GI Symptoms Skin Integrity/Comment: Josias 14. Non-pitting edema bilateral feet. interventionist: skin tears. Estimated Nutritional Goals Calories/Kcals/Kg IBW 130lb/59.1kg Kcals Calculated 1478-1773kcal (25-30kcal/kg) Protein Calculated 59g (1g/kg) Fluid: ml 1478-1773ml (1ml/kcal) Nutritional Problem 1. Problem Problem Impaired nutrient utilization related to Etiology renal dysfunction, per MD note SU ?ATN Signs/Symptoms: BUN 30H, creatinine 1.8H Intervention/Recommendation Comments 1. Recommend advance diet as tolerated to low sodium diet, to aid in renal function. No renal restriction due to hx of hypokalemia. Expected Outcomes/Goals Expected Outcomes/Goals 1. Pt to resume diet and meet at least 75% fo estimated nutritional needs.
[2017-02-15] MEDS: Atorvastatin Calcium 10 MG TAB PO SCH (21:02)
[2017-02-16] MEDS: methylPREDNISolone SS 40 mg Vial IVP SCH ×3 (05:07→21:39)
[2017-02-16 05:17] LABS: % BASOPHILS 2.4 % (0.0-2.0); % EOSINOPHILS 0.1 % (0.0-5.0); % MONOCYTES 2.7 % (2.0-10.0); % NEUTROPHILS 84.8 % (40.0-80.0); HEMATOCRIT 29.3 % (35.0-45.0); HEMOGLOBIN 9.8 gm/dL (11.7-16.1); MEAN CELL VOLUME 83.7 fl (81-100); MEAN CORPUSCULAR HEMOGLOBIN 27.9 pg (27.0-31.0); MEAN CORPUSCULAR HGB CONC 33.3 pg (28.0-36.0); MEAN PLATELET VOLUME 9.8 fl; NEUTROPHILE ABSOLUTE 11.8 Th/cmm (1.8-8.0); PLATELET COUNT 193 Th/cmm (150-400); RED CELL DISTRIBUTION WIDTH 17.4 % (11.5-20.0)
[2017-02-16 05:22] LABS: WHITE BLOOD COUNT 13.9 Th/cmm (4.8-10.8)
[2017-02-16 05:28] LABS: ALB/GLOB RATIO 1.2 (1.0-1.8); ANION GAP 13.1 (7.0-16.0); BILIRUBIN,TOTAL 1.2 mg/dL (0.3-1.0); BUN/CREATININE RATIO 18.8; CALCIUM SERUM 8.3 mg/dL (8.6-10.3); CARBON DIOXIDE 30.2 mEq/L (21.0-31.0); CREATININE - SERUM 2.5 mg/dL (0.6-1.2); POTASSIUM SERUM 3.3 mEq/L (3.5-5.1)
[2017-02-16] MEDS: Multivitamin w/ Minerals Tab PO SCH (09:44)
[2017-02-16] MEDS: Potassium Chloride 20 mEq ER Tab PO SCH (09:44)
[2017-02-16] MEDS: Lactobacillus Rhamnosus 10 Billion CFU Capsule PO SCH (09:44)
[2017-02-16] MEDS: Pantoprazole 40 mg EC Tab PO SCH (09:44)
--- NOTE | 2017-02-16 11:59 | General Progress Note ---
Subjective - Review of Systems Service Date: 02/16/17 Subjective: pt denies any pain still looks ill Objective - Results Result Diagrams: 02/16/17 05:00 02/16/17 05:00 Recent Labs: Laboratory Last Values WBC 13.9 Th/cmm (4.8-10.8) H 02/16/17 05:00 RBC 3.50 Mil/cmm (3.80-5.20) L 02/16/17 05:00 Hgb 9.8 gm/dL (11.7-16.1) L 02/16/17 05:00 Hct 29.3 % (35.0-45.0) L 02/16/17 05:00 MCV 83.7 fl (81-100) 02/16/17 05:00 MCH 27.9 pg (27.0-31.0) 02/16/17 05:00 MCHC Differential 33.3 pg (28.0-36.0) 02/16/17 05:00 RDW 17.4 % (11.5-20.0) 02/16/17 05:00 Plt Count 193 Th/cmm (150-400) 02/16/17 05:00 MPV 9.8 fl 02/16/17 05:00 Neutrophils % 84.8 % (40.0-80.0) H 02/16/17 05:00 Band Neutrophils % 1 % (0-10) 02/15/17 05:00 Lymphocytes % 10.0 % (20.0-50.0) L 02/16/17 05:00 Monocytes % 2.7 % (2.0-10.0) 02/16/17 05:00 Eosinophils % 0.1 % (0.0-5.0) 02/16/17 05:00 Basophils % 2.4 % (0.0-2.0) H 02/16/17 05:00 Neutrophils (Manual) 80 % (40-80) 02/15/17 05:00 Lymphocytes 9 % (20-50) L 02/15/17 05:00 Monocytes 9 % (2-10) 02/15/17 05:00 Eosinophils 1 % (0-5) 02/15/17 05:00 Basophils 1 % (0-3) 02/09/17 20:27 Platelet Estimate ADEQUATE (NORMAL) 02/15/17 05:00 Platelet Morphology NORMAL (NORMAL) 02/09/17 20:27 Eos Smear Source URINE 02/14/17 17:40 Eos Smear Total Cells NONE SEEN (NONE SEEN) 02/14/17 17:40 PT 12.3 SECONDS (9.5-11.5) H 02/09/17 20:27 INR 1.17 (0.5-1.4) 02/09/17 20:27 PTT (Actin FS) 25.6 SECONDS (26.0-38.0) L 02/09/17 20:27 Specimen Source Arterial 02/14/17 16:00 Sample Site Right Radial 02/14/17 16:00 pH 7.40 (7.35-7.45) 02/14/17 16:00 pCO2 33.0 mmHg (35.0-45.0) L 02/14/17 16:00 pO2 103.0 mmHg (80.0-100.0) H 02/14/17 16:00 HCO3 22.1 mEq/L (20.0-26.0) 02/14/17 16:00 Base Excess -3.6 mEq/L (-3.0-3.0) L 02/14/17 16:00 O2 Saturation 98.0 % (92.0-100.0) 02/14/17 16:00 Robin Test Positive 02/14/17 16:00 Vent Rate 12 02/14/17 16:00 Inspired O2 40 02/14/17 16:00 Tidal Volume NA 02/14/17 16:00 PEEP 6 02/14/17 16:00 Pressure (ins/psv/peep) 6 02/14/17 16:00 Critical Value LZHANG 02/14/17 16:00 Sodium 133 mEq/L (136-145) L 02/16/17 05:00 Potassium 3.3 mEq/L (3.5-5.1) L 02/16/17 05:00 Chloride 93 mEq/L (98-107) L 02/16/17 05:00 Carbon Dioxide 30.2 mEq/L (21.0-31.0) 02/16/17 05:00 Anion Gap 13.1 (7.0-16.0) 02/16/17 05:00 BUN 47 mg/dL (7-25) H 02/16/17 05:00 Creatinine 2.5 mg/dL (0.6-1.2) H 02/16/17 05:00 Est GFR ( Amer) 24.9 ml/min (>90) 02/16/17 05:00 Est GFR (Non-Af Amer) 20.5 ml/min 02/16/17 05:00 BUN/Creatinine Ratio 18.8 02/16/17 05:00 Glucose 114 mg/dL (70-105) H 02/16/17 05:00 POC Glucose 170 MG/DL (70 - 105) H 02/12/17 09:42 Hemoglobin A1c % 5.1 % (4.0-6.0) 02/11/17 08:11 Whole Bld Lactic Acid 1.29 mmol/L (0.60-1.99) 02/16/17 05:00 Uric Acid 11.2 mg/dL (2.3-6.6) H 02/15/17 05:00 Calcium 8.3 mg/dL (8.6-10.3) L 02/16/17 05:00 Phosphorus 3.8 mg/dL (2.5-5.0) 02/15/17 05:00 Magnesium 1.8 mg/dL (1.9-2.7) L 02/16/17 05:00 Total Bilirubin 1.2 mg/dL (0.3-1.0) H 02/16/17 05:00 AST 679 U/L (13-39) H 02/16/17 05:00 ALT 145 U/L (7-52) H 02/16/17 05:00 Alkaline Phosphatase 267 U/L (34-104) H 02/16/17 05:00 Creatine Kinase 67 U/L (30-223) 02/12/17 04:41 CK-MB (CK-2) 1.1 ng/mL (0.6-6.3) 02/09/17 20:27 Troponin I 0.01 ng/mL (0.01-0.05) 02/09/17 20:27 B-Natriuretic Peptide 2910.0 pg/mL (5.0-100.0) H 02/16/17 05:00 Total Protein 5.6 gm/dL (6.0-8.3) L 02/16/17 05:00 Albumin 3.1 gm/dL (3.7-5.3) L 02/16/17 05:00 Globulin 2.5 gm/dL 02/16/17 05:00 Albumin/Globulin Ratio 1.2 (1.0-1.8) 02/16/17 05:00 Amylase 23 U/L (29-103) L 02/13/17 05:03 Lipase 13 U/L (11-82) 02/13/17 05:03 Urine Source ZEE PORT 02/14/17 17:40 Urine Color YELLOW 02/14/17 17:40 Urine Clarity SLIGHT HAZY (CLEAR) 02/14/17 17:40 Urine pH 5.5 02/14/17 17:40 Ur Specific Pixley 1.020 (1.005-1.030) 02/14/17 17:40 Urine Protein 100 mg/dL (NEGATIVE) H 02/14/17 17:40 Urine Glucose (UA) NEGATIVE mg/dL (NEGATIVE) 02/14/17 17:40 Urine Ketones NEGATIVE mg/dL (NEGATIVE) 02/14/17 17:40 Urine Blood MODERATE (NEGATIVE) H 02/14/17 17:40 Urine Nitrate NEGATIVE (NEGATIVE) 02/14/17 17:40 Urine Bilirubin NEGATIVE (NEGATIVE) 02/14/17 17:40 Urine Urobilinogen 0.2 E.U./dL (0.2 - 1.0) 02/14/17 17:40 Ur Leukocyte Esterase NEGATIVE (NEGATIVE) 02/14/17 17:40 Urine RBC 2-5 /hpf (0-5) 02/14/17 17:40 Urine WBC 2-5 /hpf (0-5) 02/14/17 17:40 Ur Epithelial Cells FEW /lpf (FEW) 02/14/17 17:40 Amorphous Sediment MANY URATES (NONE SEEN) 02/14/17 17:40 Urine Bacteria MODERATE /hpf (NONE SEEN) 02/14/17 17:40 Hyaline Casts 0-2 /lpf (0-2) H 02/09/17 21:05 Urine Yeast FEW /hpf (NONE SEEN) H 02/14/17 17:40 Ur Random Sodium 37 mmol/L 02/14/17 17:40 Urine Creatinine 32.9 mg/dl (Not Estab.) 02/14/17 21:55 Urine Microalbumin 332.1 ug/mL (Not Estab.) 02/14/17 21:55 Microalb/Creat Ratio 1009.4 mg/g creat (0.0-30.0) H 02/14/17 21:55 Stool Leukocyte NO WBC SEEN 02/12/17 00:05 - Physical Exam Vitals and I&O: Vital Signs Temp 98.2 F 02/16/17 11:00 Pulse 87 02/16/17 11:00 Resp 19 02/16/17 11:00 BP 130/81 02/16/17 11:00 Pulse Ox 95 02/16/17 11:00 Intake & Output 02/15/17 02/16/17 02/16/17 18:59 06:59 18:59 Intake Total 462.205 190 190 Output Total 330 350 Balance 132.205 -160 190 Weight (lbs) 81.873 kg 79.107 kg 79.107 kg Intake: Intake, IV Amount 372.205 100 Diltiazem 125 mg In 125 Dextrose 5% 100 ml @ 10 MG/HR 10 mls/hr IV TITR PATRICIA Rx#:[id number] Norepinephrine 8 mg In 147.205 Dextrose 5% 250 ml @ 40 MCG/MIN 77.4 mls/hr IV TITR PRN Rx#:[id number] Piperacillin Sodium/ 100 100 Tazobact 4.5 gm In Sodium Chloride 0.9% 100 ml @ 100 mls/hr IV Q8HR [facility] Rx #:[id number] Oral 90 90 190 Output: Urine 330 350 Other: # Bowel Movements 0 0 Active Medications: Current Medications Acetaminophen (Tylenol) 650 mg PO Q4HR PRN PRN Reason: TEMP >100 OR PAIN Stop: 04/11/17 15:21 Acetaminophen/Codeine Phosphate (Tylenol W/Codeine #3) 1 tab PO Q6HR PRN PRN Reason: MODERATE PAIN Stop: 04/11/17 15:21 Last Admin: 02/14/17 02:08 Dose: 1 tab Acetaminophen/Hydrocodone Bitart (Perry 5mg/325mg) 2 tab PO Q4H PRN PRN Reason: Severe Pain Stop: 04/11/17 15:21 Last Admin: 02/15/17 00:06 Dose: 2 tab Albuterol Sulfate (Albuterol 2.5mg/3ml Neb Ud) 2.5 mg HHN Q4HRT PRN PRN Reason: Wheezing Stop: 04/13/17 08:21 Last Admin: 02/14/17 15:54 Dose: 2.5 mg Ascorbic Acid (Vitamin C) 500 mg PO DAILY PATRICIA Stop: 04/12/17 08:59 Last Admin: 02/16/17 09:44 Dose: 500 mg Atorvastatin Calcium (Lipitor) 10 mg PO HS PATRICIA PRN Reason: Protocol Stop: 04/11/17 20:59 Last Admin: 02/15/17 21:02 Dose: 10 mg Furosemide (Lasix) 40 mg IVP BID PATRICIA Stop: 04/14/17 08:59 Last Admin: 02/16/17 09:43 Dose: 40 mg Piperacillin Sod/Tazobactam (Sod 4.5 gm/ Sodium Chloride) 100 mls @ 100 mls/hr IV Q8HR PATRICIA Stop: 04/11/17 13:59 Last Admin: 02/16/17 05:00 Dose: 100 mls/hr Norepinephrine Bitartrate 8 mg (/ Dextrose) 258 mls @ 77.4 mls/hr IV TITR PRN; Protocol; 40 MCG/MIN PRN Reason: BP MAINTENANCE (PER PROTOCOL) Stop: 04/12/17 07:46 Last Titration: 02/15/17 16:30 Dose: 0 mcg/min, 0 mls/hr Diltiazem HCl 125 mg/ Dextrose 125 mls @ 10 mls/hr IV TITR PATRICIA; 10 MG/HR PRN Reason: Protocol Stop: 04/15/17 04:29 Last Titration: 02/15/17 10:18 Dose: Infused Sodium Chloride (Nacl 0.45%) 1,000 mls @ 0 mls/hr IV .Q0M PATRICIA PRN Reason: KVO Stop: 04/15/17 10:13 Last Admin: 02/14/17 11:04 Dose: 10 mls/hr Lactobacillus Rhamnosus (Culturelle) 1 each PO DAILY [facility] Stop: 04/13/17 08:59 Last Admin: 02/16/17 09:44 Dose: 1 each Methylprednisolone Sodium Succinate (Solu-Medrol) 20 mg IVP Q8HR [facility] Stop: 04/14/17 12:59 Last Admin: 02/16/17 05:07 Dose: 20 mg Miscellaneous (Probiotic Screen) 1 ea MC PRN PRN PRN Reason: PROTOCOL Stop: 04/12/17 09:13 Ondansetron HCl (Zofran) 4 mg IV Q8H PRN PRN Reason: Nausea / Vomiting Stop: 04/11/17 08:23 Last Admin: 02/16/17 09:10 Dose: 4 mg Pantoprazole Sodium (Protonix) 40 mg PO DAILY [facility] Stop: 04/12/17 08:59 Last Admin: 02/16/17 09:44 Dose: 40 mg Potassium Chloride (Klor-Con) 20 meq PO DAILY [facility] Stop: 04/17/17 08:59 Last Admin: 02/16/17 09:44 Dose: 20 meq General: Alert, No acute distress HEENT: Atraumatic Neck: Supple, +2 carotid pulse wo bruit Cardiovascular: Regular rate, Normal S1, Normal S2 Lungs: Other (few rhonchi) Abdomen: Bowel sounds, Soft Extremities: no Edema Neurological: Sensation intact Skin: no Rash Psych/Mental Status: Mood NL Assessment/Plan - Problem List Patient Problems: All Active Problems NAUSEA AND VOMITING WITH DEHYDRATION (Acute) sepsis (Acute) Sepsis affecting skin (Acute) L02.91 - Assessment Assessment: Current Active Problems Problem Status Onset NAUSEA AND VOMITING WITH DEHYDRATION Acute leukocytosis distended gall bladder r/o chelocystitis trachycardia - Plan Plan: as per order sheet Nutritional Asmnt/Malnutr-PDOC - Dietary Evaluation Malnutrition Findings (Please click <Entered> for more info): Nutritional Asmnt/Malnutrition Start: 02/14/17 13: 04 Text: Status: Complete Freq: Document 02/14/17 13:05 GSUN (Rec: 02/14/17 13:21 GSUN [id number]) Nutritional Asmnt/Malnutrition Patient General Information Nutritional Screening Moderate Risk Screening Pertinent Medical Hx/Surgical Hx Dx: Septic shock, hypotension, dehydration, metabolic acidosis improved, SU ?ATN, suspect aspiration PNA HTN, left knee prothesis, dyslipidemia, anemia Subjective Information 66 year old female, Lithuanian speaking. Pt was receiving breathing treatment during [facility]. Observed clear liquid tray at bedside. progress note 02/13: DC NG tube and start PO as tolerated. Spoke to STEFANIE Mayorga RN stated for breakfast pt tolerated 2 juices, declined broth, RN will remove mask and encourage lunch shortly. No significant wasting noted. 02/11 KUB: mild ielus. Current Diet Order/ Nutrition Support Clear liquid Pertinent Medications Vitamin C, Lipitor, Culturelle , Solu-Medrol, Zofran, Protonix, Nacl 0.45% Pertinent Labs 02/13: potassium 3L 02/14: BUN 30H, creatinine 1.8H (declining) Nutritional Hx/Data Height 1.68 m Height (Calculated Centimeters) 167.6 Current Weight (lbs) 75.75 kg Weight (Calculated Kilograms) 75.7 Weight (Calculated Grams) 06306.9 [place] Body Weight 130 Weight Status Overweight GI Symptoms Skin Integrity/Comment: Josias 14. Non-pitting edema bilateral feet. assessment counselor: skin tears. Estimated Nutritional Goals Calories/Kcals/Kg IBW 130lb/59.1kg Kcals Calculated 1478-1773kcal (25-30kcal/kg) Protein Calculated 59g (1g/kg) Fluid: ml 1478-1773ml (1ml/kcal) Nutritional Problem 1. Problem Problem Impaired nutrient utilization related to Etiology renal dysfunction, per MD note SU ?ATN Signs/Symptoms: BUN 30H, creatinine 1.8H Intervention/Recommendation Comments 1. Recommend advance diet as tolerated to low sodium diet, to aid in renal function. No renal restriction due to hx of hypokalemia. Expected Outcomes/Goals Expected Outcomes/Goals 1. Pt to resume diet and meet at least 75% fo estimated nutritional needs.
--- NOTE | 2017-02-16 13:56 | General Progress Note ---
Subjective - Review of Systems Service Date: 02/16/17 Subjective: More awake, verbal, comfortable Objective - Results Result Diagrams: 02/16/17 05:00 02/16/17 05:00 Recent Labs: Laboratory Last Values WBC 13.9 Th/cmm (4.8-10.8) H 02/16/17 05:00 RBC 3.50 Mil/cmm (3.80-5.20) L 02/16/17 05:00 Hgb 9.8 gm/dL (11.7-16.1) L 02/16/17 05:00 Hct 29.3 % (35.0-45.0) L 02/16/17 05:00 MCV 83.7 fl (81-100) 02/16/17 05:00 MCH 27.9 pg (27.0-31.0) 02/16/17 05:00 MCHC Differential 33.3 pg (28.0-36.0) 02/16/17 05:00 RDW 17.4 % (11.5-20.0) 02/16/17 05:00 Plt Count 193 Th/cmm (150-400) 02/16/17 05:00 MPV 9.8 fl 02/16/17 05:00 Neutrophils % 84.8 % (40.0-80.0) H 02/16/17 05:00 Band Neutrophils % 1 % (0-10) 02/15/17 05:00 Lymphocytes % 10.0 % (20.0-50.0) L 02/16/17 05:00 Monocytes % 2.7 % (2.0-10.0) 02/16/17 05:00 Eosinophils % 0.1 % (0.0-5.0) 02/16/17 05:00 Basophils % 2.4 % (0.0-2.0) H 02/16/17 05:00 Neutrophils (Manual) 80 % (40-80) 02/15/17 05:00 Lymphocytes 9 % (20-50) L 02/15/17 05:00 Monocytes 9 % (2-10) 02/15/17 05:00 Eosinophils 1 % (0-5) 02/15/17 05:00 Basophils 1 % (0-3) 02/09/17 20:27 Platelet Estimate ADEQUATE (NORMAL) 02/15/17 05:00 Platelet Morphology NORMAL (NORMAL) 02/09/17 20:27 Eos Smear Source URINE 02/14/17 17:40 Eos Smear Total Cells NONE SEEN (NONE SEEN) 02/14/17 17:40 PT 12.3 SECONDS (9.5-11.5) H 02/09/17 20:27 INR 1.17 (0.5-1.4) 02/09/17 20:27 PTT (Actin FS) 25.6 SECONDS (26.0-38.0) L 02/09/17 20:27 Specimen Source Arterial 02/14/17 16:00 Sample Site Right Radial 02/14/17 16:00 pH 7.40 (7.35-7.45) 02/14/17 16:00 pCO2 33.0 mmHg (35.0-45.0) L 02/14/17 16:00 pO2 103.0 mmHg (80.0-100.0) H 02/14/17 16:00 HCO3 22.1 mEq/L (20.0-26.0) 02/14/17 16:00 Base Excess -3.6 mEq/L (-3.0-3.0) L 02/14/17 16:00 O2 Saturation 98.0 % (92.0-100.0) 02/14/17 16:00 Robin Test Positive 02/14/17 16:00 Vent Rate 12 02/14/17 16:00 Inspired O2 40 02/14/17 16:00 Tidal Volume NA 02/14/17 16:00 PEEP 6 02/14/17 16:00 Pressure (ins/psv/peep) 6 02/14/17 16:00 Critical Value LZHANG 02/14/17 16:00 Sodium 133 mEq/L (136-145) L 02/16/17 05:00 Potassium 3.3 mEq/L (3.5-5.1) L 02/16/17 05:00 Chloride 93 mEq/L (98-107) L 02/16/17 05:00 Carbon Dioxide 30.2 mEq/L (21.0-31.0) 02/16/17 05:00 Anion Gap 13.1 (7.0-16.0) 02/16/17 05:00 BUN 47 mg/dL (7-25) H 02/16/17 05:00 Creatinine 2.5 mg/dL (0.6-1.2) H 02/16/17 05:00 Est GFR ( Amer) 24.9 ml/min (>90) 02/16/17 05:00 Est GFR (Non-Af Amer) 20.5 ml/min 02/16/17 05:00 BUN/Creatinine Ratio 18.8 02/16/17 05:00 Glucose 114 mg/dL (70-105) H 02/16/17 05:00 POC Glucose 170 MG/DL (70 - 105) H 02/12/17 09:42 Hemoglobin A1c % 5.1 % (4.0-6.0) 02/11/17 08:11 Whole Bld Lactic Acid 1.29 mmol/L (0.60-1.99) 02/16/17 05:00 Uric Acid 11.2 mg/dL (2.3-6.6) H 02/15/17 05:00 Calcium 8.3 mg/dL (8.6-10.3) L 02/16/17 05:00 Phosphorus 3.8 mg/dL (2.5-5.0) 02/15/17 05:00 Magnesium 1.8 mg/dL (1.9-2.7) L 02/16/17 05:00 Total Bilirubin 1.2 mg/dL (0.3-1.0) H 02/16/17 05:00 AST 679 U/L (13-39) H 02/16/17 05:00 ALT 145 U/L (7-52) H 02/16/17 05:00 Alkaline Phosphatase 267 U/L (34-104) H 02/16/17 05:00 Creatine Kinase 67 U/L (30-223) 02/12/17 04:41 CK-MB (CK-2) 1.1 ng/mL (0.6-6.3) 02/09/17 20:27 Troponin I 0.01 ng/mL (0.01-0.05) 02/09/17 20:27 B-Natriuretic Peptide 2910.0 pg/mL (5.0-100.0) H 02/16/17 05:00 Total Protein 5.6 gm/dL (6.0-8.3) L 02/16/17 05:00 Albumin 3.1 gm/dL (3.7-5.3) L 02/16/17 05:00 Globulin 2.5 gm/dL 02/16/17 05:00 Albumin/Globulin Ratio 1.2 (1.0-1.8) 02/16/17 05:00 Amylase 23 U/L (29-103) L 02/13/17 05:03 Lipase 13 U/L (11-82) 02/13/17 05:03 Urine Source [place] 02/14/17 17:40 Urine Color YELLOW 02/14/17 17:40 Urine Clarity SLIGHT HAZY (CLEAR) 02/14/17 17:40 Urine pH 5.5 02/14/17 17:40 Ur Specific [place] 1.020 (1.005-1.030) 02/14/17 17:40 Urine Protein 100 mg/dL (NEGATIVE) H 02/14/17 17:40 Urine Glucose (UA) NEGATIVE mg/dL (NEGATIVE) 02/14/17 17:40 Urine Ketones NEGATIVE mg/dL (NEGATIVE) 02/14/17 17:40 Urine Blood MODERATE (NEGATIVE) H 02/14/17 17:40 Urine Nitrate NEGATIVE (NEGATIVE) 02/14/17 17:40 Urine Bilirubin NEGATIVE (NEGATIVE) 02/14/17 17:40 Urine Urobilinogen 0.2 E.U./dL (0.2 - 1.0) 02/14/17 17:40 Ur Leukocyte Esterase NEGATIVE (NEGATIVE) 02/14/17 17:40 Urine RBC 2-5 /hpf (0-5) 02/14/17 17:40 Urine WBC 2-5 /hpf (0-5) 02/14/17 17:40 Ur Epithelial Cells FEW /lpf (FEW) 02/14/17 17:40 Amorphous Sediment MANY URATES (NONE SEEN) 02/14/17 17:40 Urine Bacteria MODERATE /hpf (NONE SEEN) 02/14/17 17:40 Hyaline Casts 0-2 /lpf (0-2) H 02/09/17 21:05 Urine Yeast FEW /hpf (NONE SEEN) H 02/14/17 17:40 Ur Random Sodium 37 mmol/L 02/14/17 17:40 Urine Creatinine 32.9 mg/dl (Not Estab.) 02/14/17 21:55 Urine Microalbumin 332.1 ug/mL (Not Estab.) 02/14/17 21:55 Microalb/Creat Ratio 1009.4 mg/g creat (0.0-30.0) H 02/14/17 21:55 Stool Leukocyte NO WBC SEEN 02/12/17 00:05 - Physical Exam Vitals and I&O: Vital Signs Temp 98.2 F 02/16/17 13:00 Pulse 83 02/16/17 13:00 Resp 19 02/16/17 13:00 BP 131/86 02/16/17 13:00 Pulse Ox 98 02/16/17 13:00 Intake & Output 02/15/17 02/16/17 02/16/17 18:59 06:59 18:59 Intake Total 462.205 290 290 Output Total 330 350 Balance 132.205 -60 290 Weight (lbs) 81.873 kg 79.107 kg 79.107 kg Intake: Intake, IV Amount 372.205 200 100 Diltiazem 125 mg In 125 Dextrose 5% 100 ml @ 10 MG/HR 10 mls/hr IV TITR PATRICIA Rx#:[id number] Norepinephrine 8 mg In 147.205 Dextrose 5% 250 ml @ 40 MCG/MIN 77.4 mls/hr IV TITR PRN Rx#:[id number] Piperacillin Sodium/ 100 200 100 Tazobact 4.5 gm In Sodium Chloride 0.9% 100 ml @ 100 mls/hr IV Q8HR [facility] Rx #:[id number] Oral 90 90 190 Output: Urine 330 350 Other: # Bowel Movements 0 0 Active Medications: Current Medications Acetaminophen (Tylenol) 650 mg PO Q4HR PRN PRN Reason: TEMP >100 OR PAIN Stop: 04/11/17 15:21 Acetaminophen/Codeine Phosphate (Tylenol W/Codeine #3) 1 tab PO Q6HR PRN PRN Reason: MODERATE PAIN Stop: 04/11/17 15:21 Last Admin: 02/14/17 02:08 Dose: 1 tab Acetaminophen/Hydrocodone Bitart ([place] 5mg/325mg) 2 tab PO Q4H PRN PRN Reason: Severe Pain Stop: 04/11/17 15:21 Last Admin: 02/15/17 00:06 Dose: 2 tab Albuterol Sulfate (Albuterol 2.5mg/3ml Neb Ud) 2.5 mg HHN Q4HRT PRN PRN Reason: Wheezing Stop: 04/13/17 08:21 Last Admin: 02/14/17 15:54 Dose: 2.5 mg Ascorbic Acid (Vitamin C) 500 mg PO DAILY PATRICIA Stop: 04/12/17 08:59 Last Admin: 02/16/17 09:44 Dose: 500 mg Atorvastatin Calcium (Lipitor) 10 mg PO HS PATRICIA PRN Reason: Protocol Stop: 04/11/17 20:59 Last Admin: 02/15/17 21:02 Dose: 10 mg Furosemide (Lasix) 40 mg IVP BID PATRICIA Stop: 04/14/17 08:59 Last Admin: 02/16/17 09:43 Dose: 40 mg Piperacillin Sod/Tazobactam (Sod 4.5 gm/ Sodium Chloride) 100 mls @ 100 mls/hr IV Q8HR PATRICIA Stop: 04/11/17 13:59 Last Infusion: 02/16/17 13:32 Dose: Infused Norepinephrine Bitartrate 8 mg (/ Dextrose) 258 mls @ 77.4 mls/hr IV TITR PRN; Protocol; 40 MCG/MIN PRN Reason: BP MAINTENANCE (PER PROTOCOL) Stop: 04/12/17 07:46 Last Titration: 02/15/17 16:30 Dose: 0 mcg/min, 0 mls/hr Diltiazem HCl 125 mg/ Dextrose 125 mls @ 10 mls/hr IV TITR PATRICIA; 10 MG/HR PRN Reason: Protocol Stop: 04/15/17 04:29 Last Titration: 02/15/17 10:18 Dose: Infused Sodium Chloride (Nacl 0.45%) 1,000 mls @ 0 mls/hr IV .Q0M PATRICIA PRN Reason: KVO Stop: 04/15/17 10:13 Last Admin: 02/14/17 11:04 Dose: 10 mls/hr Lactobacillus Rhamnosus (Culturelle) 1 each PO DAILY [facility] Stop: 04/13/17 08:59 Last Admin: 02/16/17 09:44 Dose: 1 each Methylprednisolone Sodium Succinate (Solu-Medrol) 20 mg IVP Q8HR [facility] Stop: 04/14/17 12:59 Last Admin: 02/16/17 12:21 Dose: 20 mg Miscellaneous (Probiotic Screen) 1 ea MC PRN PRN PRN Reason: PROTOCOL Stop: 04/12/17 09:13 Ondansetron HCl (Zofran) 4 mg IV Q8H PRN PRN Reason: Nausea / Vomiting Stop: 04/11/17 08:23 Last Admin: 02/16/17 09:10 Dose: 4 mg Pantoprazole Sodium (Protonix) 40 mg PO DAILY PATRICIA Stop: 04/12/17 08:59 Last Admin: 02/16/17 09:44 Dose: 40 mg Potassium Chloride (Klor-Con) 20 meq PO DAILY PATRICIA Stop: 04/17/17 08:59 Last Admin: 02/16/17 09:44 Dose: 20 meq General: Alert, Cooperative, No acute distress HEENT: Atraumatic, EOMI, Mucous membr. moist/pink (dimished BS, no wheeze) Neck: Supple, +2 carotid pulse wo bruit Cardiovascular: Regular rate, Normal S1, Normal S2 Lungs: Other (few rhonchi) Abdomen: Bowel sounds, Soft Extremities: no Edema Neurological: Sensation intact Skin: no Rash Psych/Mental Status: Mood NL Assessment/Plan - Problem List Patient Problems: All Active Problems NAUSEA AND VOMITING WITH DEHYDRATION (Acute) - Assessment Assessment: Acute kidney injury secondary to acute tubular injury Fractional excretion of sodium is 1.1% suggestive of intrinsic renal failure Shock secondary to sepsis Distended gallbladder with normal acute cholecystitis Abdominal pain secondary to ileus Ileus secondary to sepsis Acute decompensation of systolic congestive heart failure(EJF 15-20%) Respiratory failure secondary to aspiration pneumonia/CHF Anemia of chronic kidney disease Dyslipidemia Status post Infected prosthesis left knee, status post I&D Purely anion gap metabolic acidosis with respiratory alkalosis Sepsis secondary to aspiration pneumonia Worsening liver enzymes due to sepsis, medications, hypotension - Plan Plan: Lab - Result Diagrams 02/15/17 05:00 02/15/17 05:00 Current Medications Acetaminophen (Tylenol) 650 mg PO Q4HR PRN PRN Reason: TEMP >100 OR PAIN Stop: 04/11/17 15:21 Acetaminophen/Codeine Phosphate (Tylenol W/Codeine #3) 1 tab PO Q6HR PRN PRN Reason: MODERATE PAIN Stop: 04/11/17 15:21 Last Admin: 02/14/17 02:08 Dose: 1 tab Acetaminophen/Hydrocodone Bitart ([place] 5mg/325mg) 2 tab PO Q4H PRN PRN Reason: Severe Pain Stop: 04/11/17 15:21 Last Admin: 02/15/17 00:06 Dose: 2 tab Albuterol Sulfate (Albuterol 2.5mg/3ml Neb Ud) 2.5 mg HHN Q4HRT PRN PRN Reason: Wheezing Stop: 04/13/17 08:21 Last Admin: 02/14/17 15:54 Dose: 2.5 mg Ascorbic Acid (Vitamin C) 500 mg PO DAILY PATRICIA Stop: 04/12/17 08:59 Last Admin: 02/15/17 09:33 Dose: 500 mg Atorvastatin Calcium (Lipitor) 10 mg PO HS PATRICIA PRN Reason: Protocol Stop: 04/11/17 20:59 Last Admin: 02/14/17 20:49 Dose: 10 mg Furosemide (Lasix) 40 mg IVP BID PATRICIA Stop: 04/14/17 08:59 Last Admin: 02/15/17 09:33 Dose: 40 mg Piperacillin Sod/Tazobactam (Sod 4.5 gm/ Sodium Chloride) 100 mls @ 100 mls/hr IV Q8HR PATRICIA Stop: 04/11/17 13:59 Last Admin: 02/15/17 05:23 Dose: 100 mls/hr Norepinephrine Bitartrate 8 mg (/ Dextrose) 258 mls @ 77.4 mls/hr IV TITR PRN; Protocol; 40 MCG/MIN PRN Reason: BP MAINTENANCE (PER PROTOCOL) Stop: 04/12/17 07:46 Last Admin: 02/15/17 01:45 Dose: 5.16 mcg/min, 9.98 mls/hr Diltiazem HCl 125 mg/ Dextrose 125 mls @ 10 mls/hr IV TITR PATRICIA; 10 MG/HR PRN Reason: Protocol Stop: 04/15/17 04:29 Last Titration: 02/15/17 10:18 Dose: Infused Sodium Chloride (Nacl 0.45%) 1,000 mls @ 0 mls/hr IV .Q0M PATRICIA PRN Reason: KVO Stop: 04/15/17 10:13 Last Admin: 02/14/17 11:04 Dose: 10 mls/hr Lactobacillus Rhamnosus (Culturelle) 1 each PO DAILY PATRICIA Stop: 04/13/17 08:59 Last Admin: 02/15/17 09:33 Dose: 1 each Methylprednisolone Sodium Succinate (Solu-Medrol) 20 mg IVP Q8HR PATRICIA Stop: 04/14/17 12:59 Last Admin: 02/15/17 05:23 Dose: 20 mg Miscellaneous (Probiotic Screen) 1 ea MC PRN PRN PRN Reason: PROTOCOL Stop: 04/12/17 09:13 Ondansetron HCl (Zofran) 4 mg IV Q8H PRN PRN Reason: Nausea / Vomiting Stop: 04/11/17 08:23 Last Admin: 02/12/17 00:59 Dose: 4 mg Pantoprazole Sodium (Protonix) 40 mg PO DAILY [facility] Stop: 04/12/17 08:59 Last Admin: 02/15/17 09:32 Dose: 40 mg Kidney function worse with a BUN/creatinine of 47/2.5 Chest x-ray basically the same with bilateral effusions, pulmonary congestion Continue diuretics for now due to CHF, elevated BNP Off Levophed Monitor electrolytes and CBC along with chest x-ray Replace potassium and magnesium Nutritional Asmnt/Malnutr-PDOC - Dietary Evaluation Malnutrition Findings (Please click <Entered> for more info): Nutritional Asmnt/Malnutrition Start: 02/14/17 13: 04 Text: Status: Complete Freq: Document 02/14/17 13:05 GSUN (Rec: 02/14/17 13:21 GSUN [id number]) Nutritional Asmnt/Malnutrition Patient General Information Nutritional Screening Moderate Risk Screening Pertinent Medical Hx/Surgical Hx Dx: Septic shock, hypotension, dehydration, metabolic acidosis improved, SU ?ATN, suspect aspiration PNA HTN, left knee prothesis, dyslipidemia, anemia Subjective Information 66 year old female, Kinyarwanda speaking. Pt was receiving breathing treatment during [facility] visit. Observed clear liquid tray at bedside. progress note 02/13: DC NG tube and start PO as tolerated. Spoke to STEFANIE Mayorga RN stated for breakfast pt tolerated 2 juices, declined broth, RN will remove mask and encourage lunch shortly. No significant wasting noted. 02/11 KUB: mild ielus. Current Diet Order/ Nutrition Support Clear liquid Pertinent Medications Vitamin C, Lipitor, Culturelle , Solu-Medrol, Zofran, Protonix, Nacl 0.45% Pertinent Labs 02/13: potassium 3L 02/14: BUN 30H, creatinine 1.8H (declining) Nutritional Hx/Data Height 1.68 m Height (Calculated Centimeters) 167.6 Current Weight (lbs) 75.75 kg Weight (Calculated Kilograms) 75.7 Weight (Calculated Grams) 01752.9 [place] Body Weight 130 Weight Status Overweight GI Symptoms Skin Integrity/Comment: Josias 14. Non-pitting edema bilateral feet. 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 Estimated Nutritional Goals Calories/Kcals/Kg IBW 130lb/59.1kg Kcals Calculated 1478-1773kcal (25-30kcal/kg) Protein Calculated 59g (1g/kg) Fluid: ml 1478-1773ml (1ml/kcal) Nutritional Problem 1. Problem Problem Impaired nutrient utilization related to Etiology renal dysfunction, per MD note SU ?ATN Signs/Symptoms: BUN 30H, creatinine 1.8H Intervention/Recommendation Comments 1. Recommend advance diet as tolerated to low sodium diet, to aid in renal function. No renal restriction due to hx of hypokalemia. Expected Outcomes/Goals Expected Outcomes/Goals 1. Pt to resume diet and meet at least 75% fo estimated nutritional needs.
[2017-02-16] MEDS ORDERED: Mag Sulfate 2gm/50mL Premix 2 GM/50 ML BAG IV ONE (14:00)
--- NOTE | 2017-02-16 14:34 | Diagnostic Imaging Report ---
Portable chest x-ray HISTORY: Shortness of breath Compared to prior exam of 02/15/2017, the heart remains enlarged. Persistent density seen in the left lower hemithorax with obscuration the left hemidiaphragm. The findings suggest a pleural effusion. Underlying pneumonia and/or atelectasis cannot be excluded. IMPRESSION: 1. No change in the cardiopulmonary status
--- NOTE | 2017-02-16 16:06 | Cardiology ---
Cardiology Report - Cardiology Cardiology: Date of Service: 02/13/[address] roxana sinclair M-MODE ECHOCARDIOLGRAM: Mitral normal E-point septal separation increased left ventricle hypertrophy of the left ventricle ejection fraction 20% left atrium normal aortic root normal aortic leaflets normal CONCLUSION: Cardiomyopathy ejection fraction 20% hypertrophy of the left ventricle 2D ECHO: Mitral while normal left ventricle hypertrophy ejection fraction 20% left Atrium normal aortic root normal aortic leaflets normal Short axis mitral valve aortic valve normal Apical 4 chamber view left ventricle hypertrophy ejection fraction 20% left Atrium normal right ventricle right atrium normal CONCLUSION: Cardiomyopathy ejection fraction 20% hypertrophy left ventricle mild mitral regurgitation mild tricuspid regurgitation mild aortic regurgitation mild pulmonary regurgitation and right ventricular systolic pressure 24 mm DOPPLER: CONCLUSION: Cardiomyopathy hypertrophy left ventricle mild mitral regurgitation and mild tricuspid regurgitation and mild pulmonary regurgitation mild aortic regurgitation ejection fraction 20%
--- NOTE | 2017-02-16 17:12 | Infectious Disease Prog Note ---
Infectious Disease Subjective - Review of Systems Service Date: 02/16/17 Subjective: There is no new change, no fever. No more nausea and vomiting. off vasopressors. She got enough sleep last, feels better, lactic acid is still high. Infectious Disease Objective - Results Result Diagrams: 02/16/17 05:00 02/16/17 05:00 Recent Labs: Laboratory Last Values WBC 13.9 Th/cmm (4.8-10.8) H 02/16/17 05:00 RBC 3.50 Mil/cmm (3.80-5.20) L 02/16/17 05:00 Hgb 9.8 gm/dL (11.7-16.1) L 02/16/17 05:00 Hct 29.3 % (35.0-45.0) L 02/16/17 05:00 MCV 83.7 fl (81-100) 02/16/17 05:00 MCH 27.9 pg (27.0-31.0) 02/16/17 05:00 MCHC Differential 33.3 pg (28.0-36.0) 02/16/17 05:00 RDW 17.4 % (11.5-20.0) 02/16/17 05:00 Plt Count 193 Th/cmm (150-400) 02/16/17 05:00 MPV 9.8 fl 02/16/17 05:00 Neutrophils % 84.8 % (40.0-80.0) H 02/16/17 05:00 Band Neutrophils % 1 % (0-10) 02/15/17 05:00 Lymphocytes % 10.0 % (20.0-50.0) L 02/16/17 05:00 Monocytes % 2.7 % (2.0-10.0) 02/16/17 05:00 Eosinophils % 0.1 % (0.0-5.0) 02/16/17 05:00 Basophils % 2.4 % (0.0-2.0) H 02/16/17 05:00 Neutrophils (Manual) 80 % (40-80) 02/15/17 05:00 Lymphocytes 9 % (20-50) L 02/15/17 05:00 Monocytes 9 % (2-10) 02/15/17 05:00 Eosinophils 1 % (0-5) 02/15/17 05:00 Basophils 1 % (0-3) 02/09/17 20:27 Platelet Estimate ADEQUATE (NORMAL) 02/15/17 05:00 Platelet Morphology NORMAL (NORMAL) 02/09/17 20:27 Eos Smear Source URINE 02/14/17 17:40 Eos Smear Total Cells NONE SEEN (NONE SEEN) 02/14/17 17:40 PT 12.3 SECONDS (9.5-11.5) H 02/09/17 20:27 INR 1.17 (0.5-1.4) 02/09/17 20:27 PTT (Actin FS) 25.6 SECONDS (26.0-38.0) L 02/09/17 20:27 Specimen Source Arterial 02/14/17 16:00 Sample Site Right Radial 02/14/17 16:00 pH 7.40 (7.35-7.45) 02/14/17 16:00 pCO2 33.0 mmHg (35.0-45.0) L 02/14/17 16:00 pO2 103.0 mmHg (80.0-100.0) H 02/14/17 16:00 HCO3 22.1 mEq/L (20.0-26.0) 02/14/17 16:00 Base Excess -3.6 mEq/L (-3.0-3.0) L 02/14/17 16:00 O2 Saturation 98.0 % (92.0-100.0) 02/14/17 16:00 Robin Test Positive 02/14/17 16:00 Vent Rate 12 02/14/17 16:00 Inspired O2 40 02/14/17 16:00 Tidal Volume NA 02/14/17 16:00 PEEP 6 02/14/17 16:00 Pressure (ins/psv/peep) 6 02/14/17 16:00 Critical Value LZHANG 02/14/17 16:00 Sodium 133 mEq/L (136-145) L 02/16/17 05:00 Potassium 3.3 mEq/L (3.5-5.1) L 02/16/17 05:00 Chloride 93 mEq/L (98-107) L 02/16/17 05:00 Carbon Dioxide 30.2 mEq/L (21.0-31.0) 02/16/17 05:00 Anion Gap 13.1 (7.0-16.0) 02/16/17 05:00 BUN 47 mg/dL (7-25) H 02/16/17 05:00 Creatinine 2.5 mg/dL (0.6-1.2) H 02/16/17 05:00 Est GFR ( Amer) 24.9 ml/min (>90) 02/16/17 05:00 Est GFR (Non-Af Amer) 20.5 ml/min 02/16/17 05:00 BUN/Creatinine Ratio 18.8 02/16/17 05:00 Glucose 114 mg/dL (70-105) H 02/16/17 05:00 POC Glucose 170 MG/DL (70 - 105) H 02/12/17 09:42 Hemoglobin A1c % 5.1 % (4.0-6.0) 02/11/17 08:11 Whole Bld Lactic Acid 1.29 mmol/L (0.60-1.99) 02/16/17 05:00 Uric Acid 11.2 mg/dL (2.3-6.6) H 02/15/17 05:00 Calcium 8.3 mg/dL (8.6-10.3) L 02/16/17 05:00 Phosphorus 3.8 mg/dL (2.5-5.0) 02/15/17 05:00 Magnesium 1.8 mg/dL (1.9-2.7) L 02/16/17 05:00 Total Bilirubin 1.2 mg/dL (0.3-1.0) H 02/16/17 05:00 AST 679 U/L (13-39) H 02/16/17 05:00 ALT 145 U/L (7-52) H 02/16/17 05:00 Alkaline Phosphatase 267 U/L (34-104) H 02/16/17 05:00 Creatine Kinase 67 U/L (30-223) 02/12/17 04:41 CK-MB (CK-2) 1.1 ng/mL (0.6-6.3) 02/09/17 20:27 Troponin I 0.01 ng/mL (0.01-0.05) 02/09/17 20:27 B-Natriuretic Peptide 2910.0 pg/mL (5.0-100.0) H 02/16/17 05:00 Total Protein 5.6 gm/dL (6.0-8.3) L 02/16/17 05:00 Albumin 3.1 gm/dL (3.7-5.3) L 02/16/17 05:00 Globulin 2.5 gm/dL 02/16/17 05:00 Albumin/Globulin Ratio 1.2 (1.0-1.8) 02/16/17 05:00 Amylase 23 U/L (29-103) L 02/13/17 05:03 Lipase 13 U/L (11-82) 02/13/17 05:03 Urine Source ZEE PORT 02/14/17 17:40 Urine Color YELLOW 02/14/17 17:40 Urine Clarity SLIGHT HAZY (CLEAR) 02/14/17 17:40 Urine pH 5.5 02/14/17 17:40 Ur Specific [place] 1.020 (1.005-1.030) 02/14/17 17:40 Urine Protein 100 mg/dL (NEGATIVE) H 02/14/17 17:40 Urine Glucose (UA) NEGATIVE mg/dL (NEGATIVE) 02/14/17 17:40 Urine Ketones NEGATIVE mg/dL (NEGATIVE) 02/14/17 17:40 Urine Blood MODERATE (NEGATIVE) H 02/14/17 17:40 Urine Nitrate NEGATIVE (NEGATIVE) 02/14/17 17:40 Urine Bilirubin NEGATIVE (NEGATIVE) 02/14/17 17:40 Urine Urobilinogen 0.2 E.U./dL (0.2 - 1.0) 02/14/17 17:40 Ur Leukocyte Esterase NEGATIVE (NEGATIVE) 02/14/17 17:40 Urine RBC 2-5 /hpf (0-5) 02/14/17 17:40 Urine WBC 2-5 /hpf (0-5) 02/14/17 17:40 Ur Epithelial Cells FEW /lpf (FEW) 02/14/17 17:40 Amorphous Sediment MANY URATES (NONE SEEN) 02/14/17 17:40 Urine Bacteria MODERATE /hpf (NONE SEEN) 02/14/17 17:40 Hyaline Casts 0-2 /lpf (0-2) H 02/09/17 21:05 Urine Yeast FEW /hpf (NONE SEEN) H 02/14/17 17:40 Ur Random Sodium 37 mmol/L 02/14/17 17:40 Urine Creatinine 32.9 mg/dl (Not Estab.) 07/10/17 21:55 Urine Microalbumin 332.1 ug/mL (Not Estab.) 02/14/17 21:55 Microalb/Creat Ratio 1009.4 mg/g creat (0.0-30.0) H 02/14/17 21:55 Stool Leukocyte NO WBC SEEN 02/12/17 00:05 - Physical Exam Vitals and I&O: Vital Signs Temp 98.2 F 02/16/17 16:00 Pulse 95 02/16/17 16:00 Resp 19 02/16/17 16:00 BP 120/78 02/16/17 16:00 Pulse Ox 95 02/16/17 16:00 Intake & Output 02/15/17 02/16/17 02/16/17 18:59 06:59 18:59 Intake Total 462.205 290 770 Output Total 330 350 650 Balance 132.205 -60 120 Weight (lbs) 81.873 kg 79.107 kg 79.107 kg Intake: Intake, IV Amount 372.205 200 100 Diltiazem 125 mg In 125 Dextrose 5% 100 ml @ 10 MG/HR 10 mls/hr IV TITR [facility] Rx#:[id number] Norepinephrine 8 mg In 147.205 Dextrose 5% 250 ml @ 40 MCG/MIN 77.4 mls/hr IV TITR PRN Rx#:[id number] Piperacillin Sodium/ 100 200 100 Tazobact 4.5 gm In Sodium Chloride 0.9% 100 ml @ 100 mls/hr IV Q8HR [facility] Rx #:[id number] Oral 90 90 670 Output: Urine 330 350 650 Other: # Bowel Movements 0 0 0 Active Medications: Current Medications Acetaminophen (Tylenol) 650 mg PO Q4HR PRN PRN Reason: TEMP >100 OR PAIN Stop: 04/11/17 15:21 Acetaminophen/Codeine Phosphate (Tylenol W/Codeine #3) 1 tab PO Q6HR PRN PRN Reason: MODERATE PAIN Stop: 04/11/17 15:21 Last Admin: 02/14/17 02:08 Dose: 1 tab Acetaminophen/Hydrocodone Bitart ([place] 5mg/325mg) 2 tab PO Q4H PRN PRN Reason: Severe Pain Stop: 04/11/17 15:21 Last Admin: 02/15/17 00:06 Dose: 2 tab Albuterol Sulfate (Albuterol 2.5mg/3ml Neb Ud) 2.5 mg HHN Q4HRT PRN PRN Reason: Wheezing Stop: 04/13/17 08:21 Last Admin: 02/14/17 15:54 Dose: 2.5 mg Ascorbic Acid (Vitamin C) 500 mg PO DAILY [facility] Stop: 04/12/17 08:59 Last Admin: 02/16/17 09:44 Dose: 500 mg Atorvastatin Calcium (Lipitor) 10 mg PO HS [facility] PRN Reason: Protocol Stop: 04/11/17 20:59 Last Admin: 02/15/17 21:02 Dose: 10 mg Furosemide (Lasix) 40 mg IVP BID [facility] Stop: 04/14/17 08:59 Last Admin: 02/16/17 09:43 Dose: 40 mg Piperacillin Sod/Tazobactam (Sod 4.5 gm/ Sodium Chloride) 100 mls @ 100 mls/hr IV Q8HR [facility] Stop: 04/11/17 13:59 Last Infusion: 02/16/17 13:32 Dose: Infused Norepinephrine Bitartrate 8 mg (/ Dextrose) 258 mls @ 77.4 mls/hr IV TITR PRN; Protocol; 40 MCG/MIN PRN Reason: BP MAINTENANCE (PER PROTOCOL) Stop: 04/12/17 07:46 Last Titration: 02/15/17 16:30 Dose: 0 mcg/min, 0 mls/hr Diltiazem HCl 125 mg/ Dextrose 125 mls @ 10 mls/hr IV TITR PATR[facility]IA; 10 MG/HR PRN Reason: Protocol Stop: 04/15/17 04:29 Last Titration: 02/15/17 10:18 Dose: Infused Sodium Chloride (Nacl 0.45%) 1,000 mls @ 0 mls/hr IV .Q0M [facility] PRN Reason: KVO Stop: 04/15/17 10:13 Last Admin: 02/14/17 11:04 Dose: 10 mls/hr Lactobacillus Rhamnosus (Culturelle) 1 each PO DAILY [facility] Stop: 04/13/17 08:59 Last Admin: 02/16/17 09:44 Dose: 1 each Methylprednisolone Sodium Succinate (Solu-Medrol) 20 mg IVP Q8HR [facility] Stop: 04/14/17 12:59 Last Admin: 02/16/17 12:21 Dose: 20 mg Miscellaneous (Probiotic Screen) 1 ea MC PRN PRN PRN Reason: PROTOCOL Stop: 04/12/17 09:13 Ondansetron HCl (Zofran) 4 mg IV Q8H PRN PRN Reason: Nausea / Vomiting Stop: 04/11/17 08:23 Last Admin: 02/16/17 09:10 Dose: 4 mg Pantoprazole Sodium (Protonix) 40 mg PO DAILY [facility] Stop: 04/12/17 08:59 Last Admin: 02/16/17 09:44 Dose: 40 mg Potassium Chloride (Klor-Con) 20 meq PO DAILY [facility] Stop: 04/17/17 08:59 Last Admin: 02/16/17 09:44 Dose: 20 meq General: no acute distress, well developed, well nourished HEENT: atraumatic, normocephalic, PERRLA Neck: supple, no thyromegaly Cardiovascular: S1S2, regular Lungs: clear to auscultation bilaterally, clear to percussion Abdomen: soft, no tender, no distended Extremities: other (left knee incision wound is ok. ), no cyanosis, no clubbing Neurological: awake, alert, oriented Skin: intact Infectious Disease Assmt/Plan - Problem List Patient Problems: All Active Problems NAUSEA AND VOMITING WITH DEHYDRATION (Acute) - Assessment Assessment: 1. Septic shock. Improving. lactic acidosis. 2. Hypotension. Dehydration, sepsis. septic shock. Improving. 3. H/o HTN. 4. H/o Anemia. 5. Metabolic acidosis, improved. 6. SU, ? ATN. worsenong of the creatinine. 7. Small superficial leg wound at the distal end, no sign of infection. 8. CHF. 9. H/O Left TKR. no clinical sign of infection. h/o prosthesis infection, treated recently. 10. Suspect aspiration pneumonia. 11. elevated liver enzymes. 12. Leukocytosis, without bandemia, ? steroid ? Sepsis. Recommendations: Antibiotic cheek, continue zosyn. wound care. Nutritional Asmnt/Malnutr-PDOC - Dietary Evaluation Malnutrition Findings (Please click <Entered> for more info): Nutritional Asmnt/Malnutrition Start: 02/14/17 13: 04 Text: Status: Complete Freq: Document 02/14/17 13:05 GSUN (Rec: 02/14/17 13:21 GSUN [id number]) Nutritional Asmnt/Malnutrition Patient General Information Nutritional Screening Moderate Risk Screening Pertinent Medical Hx/Surgical Hx Dx: Septic shock, hypotension, dehydration, metabolic acidosis improved, SU ?ATN, suspect aspiration PNA HTN, left knee prothesis, dyslipidemia, anemia Subjective Information 66 year old female, [place]ian speaking. Pt was receiving breathing treatment during [facility] visit. Observed clear liquid tray at bedside. progress note 02/13: DC NG tube and start PO as tolerated. Spoke to RN STEFANIE Mayorga stated for breakfast pt tolerated 2 juices, declined broth, RN will remove mask and encourage lunch shortly. No significant wasting noted. 02/11 KUB: mild ielus. Current Diet Order/ Nutrition Support Clear liquid Pertinent Medications Vitamin C, Lipitor, Culturelle , Solu-Medrol, Zofran, Protonix, Nacl 0.45% Pertinent Labs 02/13: potassium 3L 02/14: BUN 30H, creatinine 1.8H (declining) Nutritional Hx/Data Height 1.68 m Height (Calculated Centimeters) 167.6 Current Weight (lbs) 75.75 kg Weight (Calculated Kilograms) 75.7 Weight (Calculated Grams) 25669.9 [place] Body Weight 130 Weight Status Overweight GI Symptoms Skin Integrity/Comment: Josias 14. Non-pitting edema bilateral feet. 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 Estimated Nutritional Goals Calories/Kcals/Kg IBW 130lb/59.1kg Kcals Calculated 1478-1773kcal (25-30kcal/kg) Protein Calculated 59g (1g/kg) Fluid: ml 1478-1773ml (1ml/kcal) Nutritional Problem 1. Problem Problem Impaired nutrient utilization related to Etiology renal dysfunction, per MD note SU ?ATN Signs/Symptoms: BUN 30H, creatinine 1.8H Intervention/Recommendation Comments 1. Recommend advance diet as tolerated to low sodium diet, to aid in renal function. No renal restriction due to hx of hypokalemia. Expected Outcomes/Goals Expected Outcomes/Goals 1. Pt to resume diet and meet at least 75% fo estimated nutritional needs.
[2017-02-16] MEDS: Atorvastatin Calcium 10 MG TAB PO SCH (21:39)
[2017-02-16] MEDS: Hydrocodone/APAP 5mg/325mg Tab PO PRN (21:40)
[2017-02-17] MEDS: methylPREDNISolone SS 40 mg Vial IVP SCH ×3 (05:24→22:06)
[2017-02-17 07:23] LABS: HEMATOCRIT 31.5 % (35.0-45.0); HEMOGLOBIN 10.7 gm/dL (11.7-16.1); MEAN CELL VOLUME 83.5 fl (81-100); MEAN CORPUSCULAR HEMOGLOBIN 28.5 pg (27.0-31.0); MEAN CORPUSCULAR HGB CONC 34.1 pg (28.0-36.0); MEAN PLATELET VOLUME 9.4 fl; PLATELET COUNT 214 Th/cmm (150-400); RED BLOOD COUNT 3.77 Mil/cmm (3.80-5.20); RED CELL DISTRIBUTION WIDTH 16.8 % (11.5-20.0)
[2017-02-17 07:26] LABS: ALB/GLOB RATIO 1.1 (1.0-1.8); ANION GAP 16.5 (7.0-16.0); BUN/CREATININE RATIO 18.9; CALCIUM SERUM 8.5 mg/dL (8.6-10.3); CARBON DIOXIDE 28.7 mEq/L (21.0-31.0); CREATININE - SERUM 2.7 mg/dL (0.6-1.2); POTASSIUM SERUM 3.2 mEq/L (3.5-5.1)
[2017-02-17 07:41] LABS: WHITE BLOOD COUNT 23.4 Th/cmm (4.8-10.8)
[2017-02-17 08:34] LABS: NEUTROPHILS 93 % (40-80); TOTAL CELLS COUNTED 100
[2017-02-17 08:35] LABS: PLATELET ESTIMATE ADEQUATE (NORMAL)
--- NOTE | 2017-02-17 08:35 | Diagnostic Imaging Report ---
Portable chest x-ray HISTORY: Shortness of breath Compared to prior exam of February 16, 2017, the heart remains enlarged. Persistent density seen in the left lower hemithorax consistent with a pleural effusion. Underlying consolidation and/or atelectasis cannot be IMPRESSION: 1. No change in the cardiopulmonary status.
[2017-02-17] MEDS: Lactobacillus Rhamnosus 10 Billion CFU Capsule PO SCH (09:56)
[2017-02-17] MEDS: Multivitamin w/ Minerals Tab PO SCH (09:56)
[2017-02-17] MEDS: Pantoprazole 40 mg EC Tab PO SCH (09:58)
[2017-02-17] MEDS: Potassium Chloride 20 mEq ER Tab PO SCH (09:58)
--- NOTE | 2017-02-17 10:47 | General Progress Note ---
Subjective - Review of Systems Subjective: pt denies any discomfort or pain still looks ill Objective - Results Result Diagrams: 02/17/17 06:05 02/17/17 06:05 Recent Labs: Laboratory Last Values WBC 23.4 Th/cmm (4.8-10.8) H* D 02/17/17 06:05 RBC 3.77 Mil/cmm (3.80-5.20) L 02/17/17 06:05 Hgb 10.7 gm/dL (11.7-16.1) L 02/17/17 06:05 Hct 31.5 % (35.0-45.0) L 02/17/17 06:05 MCV 83.5 fl (81-100) 02/17/17 06:05 MCH 28.5 pg (27.0-31.0) 02/17/17 06:05 MCHC Differential 34.1 pg (28.0-36.0) 02/17/17 06:05 RDW 16.8 % (11.5-20.0) 02/17/17 06:05 Plt Count 214 Th/cmm (150-400) 02/17/17 06:05 MPV 9.4 fl 02/17/17 06:05 Neutrophils % 84.8 % (40.0-80.0) H 02/16/17 05:00 Band Neutrophils % 1 % (0-10) 02/15/17 05:00 Lymphocytes % 10.0 % (20.0-50.0) L 02/16/17 05:00 Monocytes % 2.7 % (2.0-10.0) 02/16/17 05:00 Eosinophils % 0.1 % (0.0-5.0) 02/16/17 05:00 Basophils % 2.4 % (0.0-2.0) H 02/16/17 05:00 Neutrophils (Manual) 93 % (40-80) H 02/17/17 06:05 Lymphocytes 5 % (20-50) L 02/17/17 06:05 Monocytes 2 % (2-10) 02/17/17 06:05 Eosinophils 1 % (0-5) 02/15/17 05:00 Basophils 1 % (0-3) 02/09/17 20:27 Nucleated RBCs 2.0 % (0-0) H 02/17/17 06:05 Platelet Estimate ADEQUATE (NORMAL) 02/17/17 06:05 Platelet Morphology NORMAL (NORMAL) 02/09/17 20:27 Eos Smear Source URINE 02/14/17 17:40 Eos Smear Total Cells NONE SEEN (NONE SEEN) 02/14/17 17:40 PT 12.3 SECONDS (9.5-11.5) H 02/09/17 20:27 INR 1.17 (0.5-1.4) 02/09/17 20:27 PTT (Actin FS) 25.6 SECONDS (26.0-38.0) L 02/09/17 20:27 Specimen Source Arterial 02/14/17 16:00 Sample Site Right Radial 02/14/17 16:00 pH 7.40 (7.35-7.45) 02/14/17 16:00 pCO2 33.0 mmHg (35.0-45.0) L 02/14/17 16:00 pO2 103.0 mmHg (80.0-100.0) H 02/14/17 16:00 HCO3 22.1 mEq/L (20.0-26.0) 02/14/17 16:00 Base Excess -3.6 mEq/L (-3.0-3.0) L 02/14/17 16:00 O2 Saturation 98.0 % (92.0-100.0) 02/14/17 16:00 Robin Test Positive 02/14/17 16:00 Vent Rate 12 02/14/17 16:00 Inspired O2 40 02/14/17 16:00 Tidal Volume NA 02/14/17 16:00 PEEP 6 02/14/17 16:00 Pressure (ins/psv/peep) 6 02/14/17 16:00 Critical Value LZHANG 02/14/17 16:00 Sodium 136 mEq/L (136-145) 02/17/17 06:05 Potassium 3.2 mEq/L (3.5-5.1) L 02/17/17 06:05 Chloride 94 mEq/L (98-107) L 02/17/17 06:05 Carbon Dioxide 28.7 mEq/L (21.0-31.0) 02/17/17 06:05 Anion Gap 16.5 (7.0-16.0) H 02/17/17 06:05 BUN 51 mg/dL (7-25) H 02/17/17 06:05 Creatinine 2.7 mg/dL (0.6-1.2) H 02/17/17 06:05 Est GFR ( Amer) 22.7 ml/min (>90) 02/17/17 06:05 Est GFR (Non-Af Amer) 18.8 ml/min 02/17/17 06:05 BUN/Creatinine Ratio 18.9 02/17/17 06:05 Glucose 106 mg/dL (70-105) H 02/17/17 06:05 POC Glucose 170 MG/DL (70 - 105) H 02/12/17 09:42 Hemoglobin A1c % 5.1 % (4.0-6.0) 02/11/17 08:11 Whole Bld Lactic Acid 1.29 mmol/L (0.60-1.99) 02/16/17 05:00 Uric Acid 11.2 mg/dL (2.3-6.6) H 02/15/17 05:00 Calcium 8.5 mg/dL (8.6-10.3) L 02/17/17 06:05 Phosphorus 3.8 mg/dL (2.5-5.0) 02/15/17 05:00 Magnesium 2.2 mg/dL (1.9-2.7) 02/17/17 06:05 Total Bilirubin 1.0 mg/dL (0.3-1.0) 02/17/17 06:05 AST 849 U/L (13-39) H 02/17/17 06:05 ALT 237 U/L (7-52) H 02/17/17 06:05 Alkaline Phosphatase 393 U/L (34-104) H 02/17/17 06:05 Creatine Kinase 67 U/L (30-223) 02/12/17 04:41 CK-MB (CK-2) 1.1 ng/mL (0.6-6.3) 02/09/17 20:27 Troponin I 0.01 ng/mL (0.01-0.05) 02/09/17 20:27 B-Natriuretic Peptide 2910.0 pg/mL (5.0-100.0) H 02/16/17 05:00 Total Protein 5.8 gm/dL (6.0-8.3) L 02/17/17 06:05 Albumin 3.0 gm/dL (3.7-5.3) L 02/17/17 06:05 Globulin 2.8 gm/dL 02/17/17 06:05 Albumin/Globulin Ratio 1.1 (1.0-1.8) 02/17/17 06:05 Amylase 23 U/L (29-103) L 02/13/17 05:03 Lipase 13 U/L (11-82) 02/13/17 05:03 Urine Source ZEE PORT 02/14/17 17:40 Urine Color YELLOW 02/14/17 17:40 Urine Clarity SLIGHT HAZY (CLEAR) 02/14/17 17:40 Urine pH 5.5 02/14/17 17:40 Ur Specific [place] 1.020 (1.005-1.030) 02/14/17 17:40 Urine Protein 100 mg/dL (NEGATIVE) H 02/14/17 17:40 Urine Glucose (UA) NEGATIVE mg/dL (NEGATIVE) 02/14/17 17:40 Urine Ketones NEGATIVE mg/dL (NEGATIVE) 02/14/17 17:40 Urine Blood MODERATE (NEGATIVE) H 02/14/17 17:40 Urine Nitrate NEGATIVE (NEGATIVE) 02/14/17 17:40 Urine Bilirubin NEGATIVE (NEGATIVE) 02/14/17 17:40 Urine Urobilinogen 0.2 E.U./dL (0.2 - 1.0) 02/14/17 17:40 Ur Leukocyte Esterase NEGATIVE (NEGATIVE) 02/14/17 17:40 Urine RBC 2-5 /hpf (0-5) 02/14/17 17:40 Urine WBC 2-5 /hpf (0-5) 02/14/17 17:40 Ur Epithelial Cells FEW /lpf (FEW) 02/14/17 17:40 Amorphous Sediment MANY URATES (NONE SEEN) 02/14/17 17:40 Urine Bacteria MODERATE /hpf (NONE SEEN) 02/14/17 17:40 Hyaline Casts 0-2 /lpf (0-2) H 02/09/17 21:05 Urine Yeast FEW /hpf (NONE SEEN) H 02/14/17 17:40 Ur Random Sodium 37 mmol/L 02/14/17 17:40 Urine Creatinine 32.9 mg/dl (Not Estab.) 02/14/17 21:55 Urine Microalbumin 332.1 ug/mL (Not Estab.) 02/14/17 21:55 Microalb/Creat Ratio 1009.4 mg/g creat (0.0-30.0) H 02/14/17 21:55 Stool Leukocyte NO WBC SEEN 02/12/17 00:05 - Physical Exam Vitals and I&O: Vital Signs Temp 97.1 F 02/17/17 08:00 Pulse 80 02/17/17 08:00 Resp 96 02/17/17 08:00 BP 91/71 02/17/17 09:58 Pulse Ox 96 02/17/17 08:00 Intake & Output 02/16/17 02/17/17 02/17/17 18:59 06:59 18:59 Intake Total 770 300 Output Total 650 1650 Balance 120 -1350 Weight (lbs) 79.107 kg 78.925 kg Intake: Intake, IV Amount 100 300 Piperacillin Sodium/ 100 100 Tazobact 4.5 gm In Sodium Chloride 0.9% 100 ml @ 100 mls/hr IV Q8HR [facility] Rx #:[id number] Oral 670 Output: Urine 650 1650 Other: # Bowel Movements 0 Active Medications: Current Medications Acetaminophen (Tylenol) 650 mg PO Q4HR PRN PRN Reason: TEMP >100 OR PAIN Stop: 04/11/17 15:21 Acetaminophen/Codeine Phosphate (Tylenol W/Codeine #3) 1 tab PO Q6HR PRN PRN Reason: MODERATE PAIN Stop: 04/11/17 15:21 Last Admin: 02/14/17 02:08 Dose: 1 tab Acetaminophen/Hydrocodone Bitart ([place] 5mg/325mg) 2 tab PO Q4H PRN PRN Reason: Severe Pain Stop: 04/11/17 15:21 Last Admin: 02/16/17 21:40 Dose: 2 tab Albuterol Sulfate (Albuterol 2.5mg/3ml Neb Ud) 2.5 mg HHN Q4HRT PRN PRN Reason: Wheezing Stop: 04/13/17 08:21 Last Admin: 02/14/17 15:54 Dose: 2.5 mg Ascorbic Acid (Vitamin C) 500 mg PO DAILY [facility] Stop: 04/12/17 08:59 Last Admin: 02/17/17 09:57 Dose: 500 mg Atorvastatin Calcium (Lipitor) 10 mg PO HS [facility] PRN Reason: Protocol Stop: 04/11/17 20:59 Last Admin: 02/16/17 21:39 Dose: 10 mg Furosemide (Lasix) 40 mg IVP BID [facility] Stop: 04/14/17 08:59 Last Admin: 02/17/17 09:57 Dose: Not Given Furosemide (Lasix) 40 mg IVP DAILY [facility] Stop: 04/18/17 08:59 Last Admin: 02/17/17 09:58 Dose: Not Given Piperacillin Sod/Tazobactam (Sod 4.5 gm/ Sodium Chloride) 100 mls @ 100 mls/hr IV Q8HR [facility] Stop: 04/11/17 13:59 Last Admin: 02/17/17 05:25 Dose: 100 mls/hr Norepinephrine Bitartrate 8 mg (/ Dextrose) 258 mls @ 77.4 mls/hr IV TITR PRN; Protocol; 40 MCG/MIN PRN Reason: BP MAINTENANCE (PER PROTOCOL) Stop: 04/12/17 07:46 Last Titration: 02/15/17 16:30 Dose: 0 mcg/min, 0 mls/hr Diltiazem HCl 125 mg/ Dextrose 125 mls @ 10 mls/hr IV TITR PATRICIA; 10 MG/HR PRN Reason: Protocol Stop: 04/15/17 04:29 Last Titration: 02/15/17 10:18 Dose: Infused Sodium Chloride (Nacl 0.45%) 1,000 mls @ 0 mls/hr IV .Q0M [facility] PRN Reason: KVO Stop: 04/15/17 10:13 Last Admin: 02/14/17 11:04 Dose: 10 mls/hr Lactobacillus Rhamnosus (Culturelle) 1 each PO DAILY [facility] Stop: 04/13/17 08:59 Last Admin: 02/17/17 09:56 Dose: 1 each Methylprednisolone Sodium Succinate (Solu-Medrol) 20 mg IVP Q8HR [facility] Stop: 04/14/17 12:59 Last Admin: 02/17/17 05:24 Dose: 20 mg Miscellaneous (Probiotic Screen) 1 ea MC PRN PRN PRN Reason: PROTOCOL Stop: 04/12/17 09:13 Ondansetron HCl (Zofran) 4 mg IV Q8H PRN PRN Reason: Nausea / Vomiting Stop: 04/11/17 08:23 Last Admin: 02/16/17 09:10 Dose: 4 mg Pantoprazole Sodium (Protonix) 40 mg PO DAILY [facility] Stop: 04/12/17 08:59 Last Admin: 02/17/17 09:58 Dose: 40 mg Potassium Chloride (Klor-Con) 20 meq PO DAILY [facility] Stop: 04/17/17 08:59 Last Admin: 02/17/17 09:58 Dose: 20 meq General: Alert, No acute distress HEENT: Atraumatic Neck: Supple, +2 carotid pulse wo bruit Cardiovascular: Regular rate, Normal S1, Normal S2 Lungs: Other (few rhonchi) Abdomen: Bowel sounds, Soft Extremities: no Edema Neurological: Sensation intact Skin: no Rash Psych/Mental Status: Mood NL Assessment/Plan - Problem List Patient Problems: All Active Problems NAUSEA AND VOMITING WITH DEHYDRATION (Acute) sepsis (Acute) Sepsis affecting skin (Acute) L02.91 - Assessment Assessment: Current Active Problems Problem Status Onset NAUSEA AND VOMITING WITH DEHYDRATION Acute leukocytosis distended gall bladder r/o chelocystitis trachycardia - Plan Plan: as per order sheet Nutritional Asmnt/Malnutr-PDOC - Dietary Evaluation Malnutrition Findings (Please click <Entered> for more info): Nutritional Asmnt/Malnutrition Start: 02/14/17 13: 04 Text: Status: Complete Freq: Document 02/14/17 13:05 GSUN (Rec: 02/14/17 13:21 GSUN [id number]) Nutritional Asmnt/Malnutrition Patient General Information Nutritional Screening Moderate Risk Screening Pertinent Medical Hx/Surgical Hx Dx: Septic shock, hypotension, dehydration, metabolic acidosis improved, SU ?ATN, suspect aspiration PNA HTN, left knee prothesis, dyslipidemia, anemia Subjective Information 66 year old female, Uzbek speaking. Pt was receiving breathing treatment during [facility]. Observed clear liquid tray at bedside. progress note 02/13: DC NG tube and start PO as tolerated. Spoke to STEFANIE Mayorga RN stated for breakfast pt tolerated 2 juices, declined terrance RN will remove mask and encourage lunch shortly. No significant wasting noted. 02/11 KUB: mild ielus. Current Diet Order/ Nutrition Support Clear liquid Pertinent Medications Vitamin C, Lipitor, Culturelle , Solu-Medrol, Zofran, Protonix, Nacl 0.45% Pertinent Labs 02/13: potassium 3L 7/10: BUN 30H, creatinine 1.8H (declining) Nutritional Hx/Data Height 1.68 m Height (Calculated Centimeters) 167.6 Current Weight (lbs) 75.75 kg Weight (Calculated Kilograms) 75.7 Weight (Calculated Grams) 80230.9 [place] Body Weight 130 Weight Status Overweight GI Symptoms Skin Integrity/Comment: Josias 14. Non-pitting edema bilateral feet. 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 Estimated Nutritional Goals Calories/Kcals/Kg IBW 130lb/59.1kg Kcals Calculated 1478-1773kcal (25-30kcal/kg) Protein Calculated 59g (1g/kg) Fluid: ml 1478-1773ml (1ml/kcal) Nutritional Problem 1. Problem Problem Impaired nutrient utilization related to Etiology renal dysfunction, per MD note SU ?ATN Signs/Symptoms: BUN 30H, creatinine 1.8H Intervention/Recommendation Comments 1. Recommend advance diet as tolerated to low sodium diet, to aid in renal function. No renal restriction due to hx of hypokalemia. Expected Outcomes/Goals Expected Outcomes/Goals 1. Pt to resume diet and meet at least 75% fo estimated nutritional needs.
--- NOTE | 2017-02-17 10:59 | Infectious Disease Prog Note ---
Infectious Disease Subjective - Review of Systems Service Date: 02/17/17 Subjective: There is no new change, no fever. No more nausea and vomiting. off vasopressors. Infectious Disease Objective - Results Result Diagrams: 02/17/17 06:05 02/17/17 06:05 Recent Labs: Laboratory Last Values WBC 23.4 Th/cmm (4.8-10.8) H* D 02/17/17 06:05 RBC 3.77 Mil/cmm (3.80-5.20) L 02/17/17 06:05 Hgb 10.7 gm/dL (11.7-16.1) L 02/17/17 06:05 Hct 31.5 % (35.0-45.0) L 02/17/17 06:05 MCV 83.5 fl (81-100) 02/17/17 06:05 MCH 28.5 pg (27.0-31.0) 02/17/17 06:05 MCHC Differential 34.1 pg (28.0-36.0) 02/17/17 06:05 RDW 16.8 % (11.5-20.0) 02/17/17 06:05 Plt Count 214 Th/cmm (150-400) 02/17/17 06:05 MPV 9.4 fl 02/17/17 06:05 Neutrophils % 84.8 % (40.0-80.0) H 02/16/17 05:00 Band Neutrophils % 1 % (0-10) 02/15/17 05:00 Lymphocytes % 10.0 % (20.0-50.0) L 02/16/17 05:00 Monocytes % 2.7 % (2.0-10.0) 02/16/17 05:00 Eosinophils % 0.1 % (0.0-5.0) 02/16/17 05:00 Basophils % 2.4 % (0.0-2.0) H 02/16/17 05:00 Neutrophils (Manual) 93 % (40-80) H 02/17/17 06:05 Lymphocytes 5 % (20-50) L 02/17/17 06:05 Monocytes 2 % (2-10) 02/17/17 06:05 Eosinophils 1 % (0-5) 02/15/17 05:00 Basophils 1 % (0-3) 02/09/17 20:27 Nucleated RBCs 2.0 % (0-0) H 02/17/17 06:05 Platelet Estimate ADEQUATE (NORMAL) 02/17/17 06:05 Platelet Morphology NORMAL (NORMAL) 02/09/17 20:27 Eos Smear Source URINE 02/14/17 17:40 Eos Smear Total Cells NONE SEEN (NONE SEEN) 02/14/17 17:40 PT 12.3 SECONDS (9.5-11.5) H 02/09/17 20:27 INR 1.17 (0.5-1.4) 02/09/17 20:27 PTT (Actin FS) 25.6 SECONDS (26.0-38.0) L 02/09/17 20:27 Specimen Source Arterial 02/14/17 16:00 Sample Site Right Radial 02/14/17 16:00 pH 7.40 (7.35-7.45) 02/14/17 16:00 pCO2 33.0 mmHg (35.0-45.0) L 02/14/17 16:00 pO2 103.0 mmHg (80.0-100.0) H 02/14/17 16:00 HCO3 22.1 mEq/L (20.0-26.0) 02/14/17 16:00 Base Excess -3.6 mEq/L (-3.0-3.0) L 02/14/17 16:00 O2 Saturation 98.0 % (92.0-100.0) 02/14/17 16:00 Robin Test Positive 02/14/17 16:00 Vent Rate 12 02/14/17 16:00 Inspired O2 40 02/14/17 16:00 Tidal Volume NA 02/14/17 16:00 PEEP 6 02/14/17 16:00 Pressure (ins/psv/peep) 6 02/14/17 16:00 Critical Value LZHANG 02/14/17 16:00 Sodium 136 mEq/L (136-145) 02/17/17 06:05 Potassium 3.2 mEq/L (3.5-5.1) L 02/17/17 06:05 Chloride 94 mEq/L (98-107) L 02/17/17 06:05 Carbon Dioxide 28.7 mEq/L (21.0-31.0) 02/17/17 06:05 Anion Gap 16.5 (7.0-16.0) H 02/17/17 06:05 BUN 51 mg/dL (7-25) H 02/17/17 06:05 Creatinine 2.7 mg/dL (0.6-1.2) H 02/17/17 06:05 Est GFR ( Amer) 22.7 ml/min (>90) 02/17/17 06:05 Est GFR (Non-Af Amer) 18.8 ml/min 02/17/17 06:05 BUN/Creatinine Ratio 18.9 02/17/17 06:05 Glucose 106 mg/dL (70-105) H 02/17/17 06:05 POC Glucose 170 MG/DL (70 - 105) H 02/12/17 09:42 Hemoglobin A1c % 5.1 % (4.0-6.0) 02/11/17 08:11 Whole Bld Lactic Acid 1.29 mmol/L (0.60-1.99) 02/16/17 05:00 Uric Acid 11.2 mg/dL (2.3-6.6) H 02/15/17 05:00 Calcium 8.5 mg/dL (8.6-10.3) L 02/17/17 06:05 Phosphorus 3.8 mg/dL (2.5-5.0) 02/15/17 05:00 Magnesium 2.2 mg/dL (1.9-2.7) 02/17/17 06:05 Total Bilirubin 1.0 mg/dL (0.3-1.0) 02/17/17 06:05 AST 849 U/L (13-39) H 02/17/17 06:05 ALT 237 U/L (7-52) H 02/17/17 06:05 Alkaline Phosphatase 393 U/L (34-104) H 02/17/17 06:05 Creatine Kinase 67 U/L (30-223) 02/12/17 04:41 CK-MB (CK-2) 1.1 ng/mL (0.6-6.3) 02/09/17 20:27 Troponin I 0.01 ng/mL (0.01-0.05) 02/09/17 20:27 B-Natriuretic Peptide 2910.0 pg/mL (5.0-100.0) H 02/16/17 05:00 Total Protein 5.8 gm/dL (6.0-8.3) L 02/17/17 06:05 Albumin 3.0 gm/dL (3.7-5.3) L 02/17/17 06:05 Globulin 2.8 gm/dL 02/17/17 06:05 Albumin/Globulin Ratio 1.1 (1.0-1.8) 02/17/17 06:05 Amylase 23 U/L (29-103) L 02/13/17 05:03 Lipase 13 U/L (11-82) 02/13/17 05:03 Urine Source ZEE PORT 02/14/17 17:40 Urine Color YELLOW 02/14/17 17:40 Urine Clarity SLIGHT HAZY (CLEAR) 02/14/17 17:40 Urine pH 5.5 02/14/17 17:40 Ur Specific [place] 1.020 (1.005-1.030) 02/14/17 17:40 Urine Protein 100 mg/dL (NEGATIVE) H 02/14/17 17:40 Urine Glucose (UA) NEGATIVE mg/dL (NEGATIVE) 02/14/17 17:40 Urine Ketones NEGATIVE mg/dL (NEGATIVE) 02/14/17 17:40 Urine Blood MODERATE (NEGATIVE) H 02/14/17 17:40 Urine Nitrate NEGATIVE (NEGATIVE) 02/14/17 17:40 Urine Bilirubin NEGATIVE (NEGATIVE) 02/14/17 17:40 Urine Urobilinogen 0.2 E.U./dL (0.2 - 1.0) 02/14/17 17:40 Ur Leukocyte Esterase NEGATIVE (NEGATIVE) 02/14/17 17:40 Urine RBC 2-5 /hpf (0-5) 02/14/17 17:40 Urine WBC 2-5 /hpf (0-5) 02/14/17 17:40 Ur Epithelial Cells FEW /lpf (FEW) 02/14/17 17:40 Amorphous Sediment MANY URATES (NONE SEEN) 02/14/17 17:40 Urine Bacteria MODERATE /hpf (NONE SEEN) 02/14/17 17:40 Hyaline Casts 0-2 /lpf (0-2) H 02/09/17 21:05 Urine Yeast FEW /hpf (NONE SEEN) H 02/14/17 17:40 Ur Random Sodium 37 mmol/L 02/14/17 17:40 Urine Creatinine 32.9 mg/dl (Not Estab.) 02/14/17 21:55 Urine Microalbumin 332.1 ug/mL (Not Estab.) 02/14/17 21:55 Microalb/Creat Ratio 1009.4 mg/g creat (0.0-30.0) H 02/14/17 21:55 Stool Leukocyte NO WBC SEEN 02/12/17 00:05 - Physical Exam Vitals and I&O: Vital Signs Temp 97.1 F 02/17/17 08:00 Pulse 80 02/17/17 08:00 Resp 96 02/17/17 08:00 BP 91/71 02/17/17 09:58 Pulse Ox 96 02/17/17 08:00 Intake & Output 02/16/17 02/17/17 02/17/17 18:59 06:59 18:59 Intake Total 770 400 Output Total 650 1650 Balance 120 -1250 Weight (lbs) 79.107 kg 78.925 kg Intake: Intake, IV Amount 100 400 Piperacillin Sodium/ 100 200 Tazobact 4.5 gm In Sodium Chloride 0.9% 100 ml @ 100 mls/hr IV Q8HR [facility] Rx #:[id number] Oral 670 Output: Urine 650 1650 Other: # Bowel Movements 0 Active Medications: Current Medications Acetaminophen (Tylenol) 650 mg PO Q4HR PRN PRN Reason: TEMP >100 OR PAIN Stop: 04/11/17 15:21 Acetaminophen/Codeine Phosphate (Tylenol W/Codeine #3) 1 tab PO Q6HR PRN PRN Reason: MODERATE PAIN Stop: 04/11/17 15:21 Last Admin: 02/14/17 02:08 Dose: 1 tab Acetaminophen/Hydrocodone Bitart ([place] 5mg/325mg) 2 tab PO Q4H PRN PRN Reason: Severe Pain Stop: 04/11/17 15:21 Last Admin: 02/16/17 21:40 Dose: 2 tab Albuterol Sulfate (Albuterol 2.5mg/3ml Neb Ud) 2.5 mg HHN Q4HRT PRN PRN Reason: Wheezing Stop: 04/13/17 08:21 Last Admin: 02/14/17 15:54 Dose: 2.5 mg Ascorbic Acid (Vitamin C) 500 mg PO DAILY [facility] Stop: 04/12/17 08:59 Last Admin: 02/17/17 09:57 Dose: 500 mg Atorvastatin Calcium (Lipitor) 10 mg PO HS PATRICIA PRN Reason: Protocol Stop: 04/11/17 20:59 Last Admin: 02/16/17 21:39 Dose: 10 mg Furosemide (Lasix) 40 mg IVP BID PATRICIA Stop: 04/14/17 08:59 Last Admin: 02/17/17 09:57 Dose: Not Given Furosemide (Lasix) 40 mg IVP DAILY PATRICIA Stop: 04/18/17 08:59 Last Admin: 02/17/17 09:58 Dose: Not Given Piperacillin Sod/Tazobactam (Sod 4.5 gm/ Sodium Chloride) 100 mls @ 100 mls/hr IV Q8HR PATRICIA Stop: 04/11/17 13:59 Last Infusion: 02/17/17 06:25 Dose: Infused Norepinephrine Bitartrate 8 mg (/ Dextrose) 258 mls @ 77.4 mls/hr IV TITR PRN; Protocol; 40 MCG/MIN PRN Reason: BP MAINTENANCE (PER PROTOCOL) Stop: 04/12/17 07:46 Last Titration: 02/15/17 16:30 Dose: 0 mcg/min, 0 mls/hr Diltiazem HCl 125 mg/ Dextrose 125 mls @ 10 mls/hr IV TITR PATRICIA; 10 MG/HR PRN Reason: Protocol Stop: 04/15/17 04:29 Last Titration: 02/15/17 10:18 Dose: Infused Sodium Chloride (Nacl 0.45%) 1,000 mls @ 0 mls/hr IV .Q0M PATRICIA PRN Reason: KVO Stop: 04/15/17 10:13 Last Admin: 02/14/17 11:04 Dose: 10 mls/hr Lactobacillus Rhamnosus (Culturelle) 1 each PO DAILY PATRICIA Stop: 04/13/17 08:59 Last Admin: 02/17/17 09:56 Dose: 1 each Methylprednisolone Sodium Succinate (Solu-Medrol) 20 mg IVP Q8HR PATRICIA Stop: 04/14/17 12:59 Last Admin: 02/17/17 05:24 Dose: 20 mg Miscellaneous (Probiotic Screen) 1 ea MC PRN PRN PRN Reason: PROTOCOL Stop: 04/12/17 09:13 Ondansetron HCl (Zofran) 4 mg IV Q8H PRN PRN Reason: Nausea / Vomiting Stop: 04/11/17 08:23 Last Admin: 02/16/17 09:10 Dose: 4 mg Pantoprazole Sodium (Protonix) 40 mg PO DAILY [facility] Stop: 04/12/17 08:59 Last Admin: 02/17/17 09:58 Dose: 40 mg Potassium Chloride (Klor-Con) 20 meq PO DAILY [facility] Stop: 04/17/17 08:59 Last Admin: 02/17/17 09:58 Dose: 20 meq General: no acute distress, well developed, well nourished HEENT: atraumatic Neck: supple, no thyromegaly Cardiovascular: S1S2, regular Lungs: clear to auscultation bilaterally, clear to percussion Abdomen: soft, no tender, no distended Extremities: other (left knee , no effusion, and the surgical incision healing.) , no cyanosis, no clubbing Neurological: awake, alert, oriented Infectious Disease Assmt/Plan - Problem List Patient Problems: All Active Problems NAUSEA AND VOMITING WITH DEHYDRATION (Acute) sepsis (Acute) Sepsis affecting skin (Acute) L02.91 - Assessment Assessment: 1. Septic shock. Improving. lactic acidosis. 2. Hypotension. Dehydration, sepsis. septic shock. Improving. 3. H/o HTN. 4. H/o Anemia. 5. Metabolic acidosis, improved. 6. SU, ? ATN. worsening of the creatinine. 7. Small superficial leg wound at the distal end, no sign of infection. 8. CHF. 9. H/O Left TKR. no clinical sign of infection. h/o prosthesis infection, treated recently. 10. Suspect aspiration pneumonia. 11. elevated liver enzymes. 12. Leukocytosis, without bandemia, ? steroid ? Sepsis. Recommendations: Antibiotic cheek, continue zosyn. wound care. Blood cultures. Nutritional Asmnt/Malnutr-PDOC - Dietary Evaluation Malnutrition Findings (Please click <Entered> for more info): Nutritional Asmnt/Malnutrition Start: 02/14/17 13: 04 Text: Status: Complete Freq: Document 02/14/17 13:05 DREAUN (Rec: 02/14/17 13:21 GSUN [id number]) Nutritional Asmnt/Malnutrition Patient General Information Nutritional Screening Moderate Risk Screening Pertinent Medical Hx/Surgical Hx Dx: Septic shock, hypotension, dehydration, metabolic acidosis improved, SU ?ATN, suspect aspiration PNA HTN, left knee prothesis, dyslipidemia, anemia Subjective Information 66 year old female, [place] speaking. Pt was receiving breathing treatment during [facility] visit. Observed clear liquid tray at bedside. MD progress note 02/13: DC NG tube and start PO as tolerated. Spoke to RN STEFANIE Mayorga stated for breakfast pt tolerated 2 juices, declined broth, RN will remove mask and encourage lunch shortly. No significant wasting noted. 02/11 KUB: mild ielus. Current Diet Order/ Nutrition Support Clear liquid Pertinent Medications Vitamin C, Lipitor, Culturelle , Solu-Medrol, Zofran, Protonix, Nacl 0.45% Pertinent Labs 02/13: potassium 3L 02/14: BUN 30H, creatinine 1.8H (declining) Nutritional Hx/Data Height 1.68 m Height (Calculated Centimeters) 167.6 Current Weight (lbs) 75.75 kg Weight (Calculated Kilograms) 75.7 Weight (Calculated Grams) 88998.9 [place] Body Weight 130 Weight Status Overweight GI Symptoms Skin Integrity/Comment: Josias 14. Non-pitting edema bilateral feet. 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 Estimated Nutritional Goals Calories/Kcals/Kg IBW 130lb/59.1kg Kcals Calculated 1478-1773kcal (25-30kcal/kg) Protein Calculated 59g (1g/kg) Fluid: ml 1478-1773ml (1ml/kcal) Nutritional Problem 1. Problem Problem Impaired nutrient utilization related to Etiology renal dysfunction, per MD note SU ?ATN Signs/Symptoms: BUN 30H, creatinine 1.8H Intervention/Recommendation Comments 1. Recommend advance diet as tolerated to low sodium diet, to aid in renal function. No renal restriction due to hx of hypokalemia. Expected Outcomes/Goals Expected Outcomes/Goals 1. Pt to resume diet and meet at least 75% fo estimated nutritional needs.
[2017-02-17] MEDS ORDERED: Potassium Chloride 20 mEq ER Tab PO ONE (17:08)
--- NOTE | 2017-02-17 17:08 | General Progress Note ---
Subjective - Review of Systems Service Date: 02/17/17 Subjective: More awake, verbal, comfortable Objective - Results Result Diagrams: 02/17/17 06:05 02/17/17 06:05 Recent Labs: Laboratory Last Values WBC 23.4 Th/cmm (4.8-10.8) H* D 02/17/17 06:05 RBC 3.77 Mil/cmm (3.80-5.20) L 02/17/17 06:05 Hgb 10.7 gm/dL (11.7-16.1) L 02/17/17 06:05 Hct 31.5 % (35.0-45.0) L 02/17/17 06:05 MCV 83.5 fl (81-100) 02/17/17 06:05 MCH 28.5 pg (27.0-31.0) 02/17/17 06:05 MCHC Differential 34.1 pg (28.0-36.0) 02/17/17 06:05 RDW 16.8 % (11.5-20.0) 02/17/17 06:05 Plt Count 214 Th/cmm (150-400) 02/17/17 06:05 MPV 9.4 fl 02/17/17 06:05 Neutrophils % 84.8 % (40.0-80.0) H 02/16/17 05:00 Band Neutrophils % 1 % (0-10) 02/15/17 05:00 Lymphocytes % 10.0 % (20.0-50.0) L 02/16/17 05:00 Monocytes % 2.7 % (2.0-10.0) 02/16/17 05:00 Eosinophils % 0.1 % (0.0-5.0) 02/16/17 05:00 Basophils % 2.4 % (0.0-2.0) H 02/16/17 05:00 Neutrophils (Manual) 93 % (40-80) H 02/17/17 06:05 Lymphocytes 5 % (20-50) L 02/17/17 06:05 Monocytes 2 % (2-10) 02/17/17 06:05 Eosinophils 1 % (0-5) 02/15/17 05:00 Basophils 1 % (0-3) 02/09/17 20:27 Nucleated RBCs 2.0 % (0-0) H 02/17/17 06:05 Platelet Estimate ADEQUATE (NORMAL) 02/17/17 06:05 Platelet Morphology NORMAL (NORMAL) 02/09/17 20:27 Eos Smear Source URINE 02/14/17 17:40 Eos Smear Total Cells NONE SEEN (NONE SEEN) 02/14/17 17:40 PT 12.3 SECONDS (9.5-11.5) H 02/09/17 20:27 INR 1.17 (0.5-1.4) 02/09/17 20:27 PTT (Actin FS) 25.6 SECONDS (26.0-38.0) L 02/09/17 20:27 Specimen Source Arterial 02/14/17 16:00 Sample Site Right Radial 02/14/17 16:00 pH 7.40 (7.35-7.45) 02/14/17 16:00 pCO2 33.0 mmHg (35.0-45.0) L 02/14/17 16:00 pO2 103.0 mmHg (80.0-100.0) H 02/14/17 16:00 HCO3 22.1 mEq/L (20.0-26.0) 02/14/17 16:00 Base Excess -3.6 mEq/L (-3.0-3.0) L 02/14/17 16:00 O2 Saturation 98.0 % (92.0-100.0) 02/14/17 16:00 Robin Test Positive 02/14/17 16:00 Vent Rate 12 02/14/17 16:00 Inspired O2 40 02/14/17 16:00 Tidal Volume NA 02/14/17 16:00 PEEP 6 02/14/17 16:00 Pressure (ins/psv/peep) 6 02/14/17 16:00 Critical Value LZHANG 02/14/17 16:00 Sodium 136 mEq/L (136-145) 02/17/17 06:05 Potassium 3.2 mEq/L (3.5-5.1) L 02/17/17 06:05 Chloride 94 mEq/L (98-107) L 02/17/17 06:05 Carbon Dioxide 28.7 mEq/L (21.0-31.0) 02/17/17 06:05 Anion Gap 16.5 (7.0-16.0) H 02/17/17 06:05 BUN 51 mg/dL (7-25) H 02/17/17 06:05 Creatinine 2.7 mg/dL (0.6-1.2) H 02/17/17 06:05 Est GFR ( Amer) 22.7 ml/min (>90) 02/17/17 06:05 Est GFR (Non-Af Amer) 18.8 ml/min 02/17/17 06:05 BUN/Creatinine Ratio 18.9 02/17/17 06:05 Glucose 106 mg/dL (70-105) H 02/17/17 06:05 POC Glucose 170 MG/DL (70 - 105) H 02/12/17 09:42 Hemoglobin A1c % 5.1 % (4.0-6.0) 02/11/17 08:11 Whole Bld Lactic Acid 1.29 mmol/L (0.60-1.99) 02/16/17 05:00 Uric Acid 11.2 mg/dL (2.3-6.6) H 02/15/17 05:00 Calcium 8.5 mg/dL (8.6-10.3) L 02/17/17 06:05 Phosphorus 3.8 mg/dL (2.5-5.0) 02/15/17 05:00 Magnesium 2.2 mg/dL (1.9-2.7) 02/17/17 06:05 Total Bilirubin 1.0 mg/dL (0.3-1.0) 02/17/17 06:05 AST 849 U/L (13-39) H 02/17/17 06:05 ALT 237 U/L (7-52) H 02/17/17 06:05 Alkaline Phosphatase 393 U/L (34-104) H 02/17/17 06:05 Creatine Kinase 67 U/L (30-223) 02/12/17 04:41 CK-MB (CK-2) 1.1 ng/mL (0.6-6.3) 02/09/17 20:27 Troponin I 0.01 ng/mL (0.01-0.05) 02/09/17 20:27 B-Natriuretic Peptide 2910.0 pg/mL (5.0-100.0) H 02/16/17 05:00 Total Protein 5.8 gm/dL (6.0-8.3) L 02/17/17 06:05 Albumin 3.0 gm/dL (3.7-5.3) L 02/17/17 06:05 Globulin 2.8 gm/dL 02/17/17 06:05 Albumin/Globulin Ratio 1.1 (1.0-1.8) 02/17/17 06:05 Amylase 23 U/L (29-103) L 02/13/17 05:03 Lipase 13 U/L (11-82) 02/13/17 05:03 Urine Source ZEE PORT 02/14/17 17:40 Urine Color YELLOW 02/14/17 17:40 Urine Clarity SLIGHT HAZY (CLEAR) 02/14/17 17:40 Urine pH 5.5 02/14/17 17:40 Ur Specific [place] 1.020 (1.005-1.030) 02/14/17 17:40 Urine Protein 100 mg/dL (NEGATIVE) H 02/14/17 17:40 Urine Glucose (UA) NEGATIVE mg/dL (NEGATIVE) 02/14/17 17:40 Urine Ketones NEGATIVE mg/dL (NEGATIVE) 02/14/17 17:40 Urine Blood MODERATE (NEGATIVE) H 02/14/17 17:40 Urine Nitrate NEGATIVE (NEGATIVE) 02/14/17 17:40 Urine Bilirubin NEGATIVE (NEGATIVE) 02/14/17 17:40 Urine Urobilinogen 0.2 E.U./dL (0.2 - 1.0) 02/14/17 17:40 Ur Leukocyte Esterase NEGATIVE (NEGATIVE) 02/14/17 17:40 Urine RBC 2-5 /hpf (0-5) 02/14/17 17:40 Urine WBC 2-5 /hpf (0-5) 02/14/17 17:40 Ur Epithelial Cells FEW /lpf (FEW) 02/14/17 17:40 Amorphous Sediment MANY URATES (NONE SEEN) 02/14/17 17:40 Urine Bacteria MODERATE /hpf (NONE SEEN) 02/14/17 17:40 Hyaline Casts 0-2 /lpf (0-2) H 02/09/17 21:05 Urine Yeast FEW /hpf (NONE SEEN) H 02/14/17 17:40 Ur Random Sodium 37 mmol/L 02/14/17 17:40 Urine Creatinine 32.9 mg/dl (Not Estab.) 02/14/17 21:55 Urine Microalbumin 332.1 ug/mL (Not Estab.) 02/14/17 21:55 Microalb/Creat Ratio 1009.4 mg/g creat (0.0-30.0) H 02/14/17 21:55 Stool Leukocyte NO WBC SEEN 02/12/17 00:05 - Physical Exam Vitals and I&O: Vital Signs Temp 96.9 F 02/17/17 12:00 Pulse 86 02/17/17 12:00 Resp 20 02/17/17 12:00 BP 114/80 02/17/17 12:00 Pulse Ox 97 02/17/17 12:00 Intake & Output 02/16/17 02/17/17 02/17/17 18:59 06:59 18:59 Intake Total 770 400 480 Output Total 650 1650 Balance 120 -1250 480 Weight (lbs) 79.107 kg 78.925 kg 78.925 kg Intake: Intake, IV Amount 100 400 Piperacillin Sodium/ 100 200 Tazobact 4.5 gm In Sodium Chloride 0.9% 100 ml @ 100 mls/hr IV Q8HR [facility] Rx #:[id number] Oral 670 480 Output: Urine 650 1650 Other: # Bowel Movements 0 Active Medications: Current Medications Acetaminophen (Tylenol) 650 mg PO Q4HR PRN PRN Reason: TEMP >100 OR PAIN Stop: 04/11/17 15:21 Acetaminophen/Codeine Phosphate (Tylenol W/Codeine #3) 1 tab PO Q6HR PRN PRN Reason: MODERATE PAIN Stop: 04/11/17 15:21 Last Admin: 02/14/17 02:08 Dose: 1 tab Acetaminophen/Hydrocodone Bitart ([place] 5mg/325mg) 2 tab PO Q4H PRN PRN Reason: Severe Pain Stop: 04/11/17 15:21 Last Admin: 02/16/17 21:40 Dose: 2 tab Albuterol Sulfate (Albuterol 2.5mg/3ml Neb Ud) 2.5 mg HHN Q4HRT PRN PRN Reason: Wheezing Stop: 04/13/17 08:21 Last Admin: 02/14/17 15:54 Dose: 2.5 mg Ascorbic Acid (Vitamin C) 500 mg PO DAILY [facility] Stop: 04/12/17 08:59 Last Admin: 02/17/17 09:57 Dose: 500 mg Atorvastatin Calcium (Lipitor) 10 mg PO HS PATRICIA PRN Reason: Protocol Stop: 04/11/17 20:59 Last Admin: 02/16/17 21:39 Dose: 10 mg Furosemide (Lasix) 40 mg IVP BID PATRICIA Stop: 04/14/17 08:59 Last Admin: 02/17/17 09:57 Dose: Not Given Furosemide (Lasix) 40 mg IVP DAILY PATRICIA Stop: 04/18/17 08:59 Last Admin: 02/17/17 09:58 Dose: Not Given Piperacillin Sod/Tazobactam (Sod 4.5 gm/ Sodium Chloride) 100 mls @ 100 mls/hr IV Q8HR PATRICIA Stop: 04/11/17 13:59 Last Admin: 02/17/17 12:56 Dose: 100 mls/hr Norepinephrine Bitartrate 8 mg (/ Dextrose) 258 mls @ 77.4 mls/hr IV TITR PRN; Protocol; 40 MCG/MIN PRN Reason: BP MAINTENANCE (PER PROTOCOL) Stop: 04/12/17 07:46 Last Titration: 02/15/17 16:30 Dose: 0 mcg/min, 0 mls/hr Diltiazem HCl 125 mg/ Dextrose 125 mls @ 10 mls/hr IV TITR PATRICIA; 10 MG/HR PRN Reason: Protocol Stop: 04/15/17 04:29 Last Titration: 02/15/17 10:18 Dose: Infused Sodium Chloride (Nacl 0.45%) 1,000 mls @ 0 mls/hr IV .Q0M PATRICIA PRN Reason: KVO Stop: 04/15/17 10:13 Last Admin: 02/14/17 11:04 Dose: 10 mls/hr Lactobacillus Rhamnosus (Culturelle) 1 each PO DAILY [facility] Stop: 04/13/17 08:59 Last Admin: 02/17/17 09:56 Dose: 1 each Methylprednisolone Sodium Succinate (Solu-Medrol) 20 mg IVP Q8HR PATRICIA Stop: 04/14/17 12:59 Last Admin: 02/17/17 12:55 Dose: 20 mg Miscellaneous (Probiotic Screen) 1 ea MC PRN PRN PRN Reason: PROTOCOL Stop: 04/12/17 09:13 Ondansetron HCl (Zofran) 4 mg IV Q8H PRN PRN Reason: Nausea / Vomiting Stop: 04/11/17 08:23 Last Admin: 02/16/17 09:10 Dose: 4 mg Pantoprazole Sodium (Protonix) 40 mg PO DAILY PATRICIA Stop: 04/12/17 08:59 Last Admin: 02/17/17 09:58 Dose: 40 mg Potassium Chloride (Klor-Con) 20 meq PO DAILY PATRICIA Stop: 04/17/17 08:59 Last Admin: 02/17/17 09:58 Dose: 20 meq General: Alert, No acute distress HEENT: Atraumatic, PERRLA, EOMI, Mucous membr. moist/pink Neck: Supple, +2 carotid pulse wo bruit Cardiovascular: Regular rate, Normal S1, Normal S2 Lungs: Other (few rhonchi) Abdomen: Bowel sounds, Soft Extremities: no Edema Neurological: Sensation intact Skin: no Rash Psych/Mental Status: Mood NL Assessment/Plan - Problem List Patient Problems: All Active Problems NAUSEA AND VOMITING WITH DEHYDRATION (Acute) sepsis (Acute) Sepsis affecting skin (Acute) L02.91 - Assessment Assessment: Acute kidney injury secondary to acute tubular injury Fractional excretion of sodium is 1.1% suggestive of intrinsic renal failure Shock secondary to sepsis Distended gallbladder with normal acute cholecystitis Abdominal pain secondary to ileus Ileus secondary to sepsis Acute decompensation of systolic congestive heart failure(EJF 15-20%) Respiratory failure secondary to aspiration pneumonia/CHF Anemia of chronic kidney disease Dyslipidemia Status post Infected prosthesis left knee, status post I&D Purely anion gap metabolic acidosis with respiratory alkalosis Sepsis secondary to aspiration pneumonia Worsening liver enzymes due to sepsis, medications, hypotension - Plan Plan: Lab - Result Diagrams 02/15/17 05:00 02/15/17 05:00 Current Medications Acetaminophen (Tylenol) 650 mg PO Q4HR PRN PRN Reason: TEMP >100 OR PAIN Stop: 04/11/17 15:21 Acetaminophen/Codeine Phosphate (Tylenol W/Codeine #3) 1 tab PO Q6HR PRN PRN Reason: MODERATE PAIN Stop: 04/11/17 15:21 Last Admin: 02/14/17 02:08 Dose: 1 tab Acetaminophen/Hydrocodone Bitart ([place] 5mg/325mg) 2 tab PO Q4H PRN PRN Reason: Severe Pain Stop: 04/11/17 15:21 Last Admin: 02/15/17 00:06 Dose: 2 tab Albuterol Sulfate (Albuterol 2.5mg/3ml Neb Ud) 2.5 mg HHN Q4HRT PRN PRN Reason: Wheezing Stop: 04/13/17 08:21 Last Admin: 02/14/17 15:54 Dose: 2.5 mg Ascorbic Acid (Vitamin C) 500 mg PO DAILY PATRICIA Stop: 04/12/17 08:59 Last Admin: 02/15/17 09:33 Dose: 500 mg Atorvastatin Calcium (Lipitor) 10 mg PO HS PATRICIA PRN Reason: Protocol Stop: 04/11/17 20:59 Last Admin: 02/14/17 20:49 Dose: 10 mg Furosemide (Lasix) 40 mg IVP BID PATRICIA Stop: 04/14/17 08:59 Last Admin: 02/15/17 09:33 Dose: 40 mg Piperacillin Sod/Tazobactam (Sod 4.5 gm/ Sodium Chloride) 100 mls @ 100 mls/hr IV Q8HR PATRICIA Stop: 04/11/17 13:59 Last Admin: 02/15/17 05:23 Dose: 100 mls/hr Norepinephrine Bitartrate 8 mg (/ Dextrose) 258 mls @ 77.4 mls/hr IV TITR PRN; Protocol; 40 MCG/MIN PRN Reason: BP MAINTENANCE (PER PROTOCOL) Stop: 04/12/17 07:46 Last Admin: 02/15/17 01:45 Dose: 5.16 mcg/min, 9.98 mls/hr Diltiazem HCl 125 mg/ Dextrose 125 mls @ 10 mls/hr IV TITR PATRICIA; 10 MG/HR PRN Reason: Protocol Stop: 04/15/17 04:29 Last Titration: 02/15/17 10:18 Dose: Infused Sodium Chloride (Nacl 0.45%) 1,000 mls @ 0 mls/hr IV .Q0M PATRICIA PRN Reason: KVO Stop: 04/15/17 10:13 Last Admin: 02/14/17 11:04 Dose: 10 mls/hr Lactobacillus Rhamnosus (Culturelle) 1 each PO DAILY PATRICIA Stop: 04/13/17 08:59 Last Admin: 02/15/17 09:33 Dose: 1 each Methylprednisolone Sodium Succinate (Solu-Medrol) 20 mg IVP Q8HR PATRICIA Stop: 04/14/17 12:59 Last Admin: 02/15/17 05:23 Dose: 20 mg Miscellaneous (Probiotic Screen) 1 ea MC PRN PRN PRN Reason: PROTOCOL Stop: 04/12/17 09:13 Ondansetron HCl (Zofran) 4 mg IV Q8H PRN PRN Reason: Nausea / Vomiting Stop: 04/11/17 08:23 Last Admin: 02/12/17 00:59 Dose: 4 mg Pantoprazole Sodium (Protonix) 40 mg PO DAILY PATRICIA Stop: 04/12/17 08:59 Last Admin: 02/15/17 09:32 Dose: 40 mg Kidney function worse with a BUN/creatinine of 51/4.7 Chest x-ray basically the same with bilateral effusions, pulmonary congestion Continue diuretics for now due to CHF, elevated BNP Off Levophed Monitor electrolytes and CBC along with chest x-ray Replace potassium and magnesium Nutritional Asmnt/Malnutr-PDOC - Dietary Evaluation Malnutrition Findings (Please click <Entered> for more info): Nutritional Asmnt/Malnutrition Start: 02/14/17 13: 04 Text: Status: Complete Freq: Document 02/14/17 13:05 GSUN (Rec: 02/14/17 13:21 GSUN [id number]) Nutritional Asmnt/Malnutrition Patient General Information Nutritional Screening Moderate Risk Screening Pertinent Medical Hx/Surgical Hx Dx: Septic shock, hypotension, dehydration, metabolic acidosis improved, SU ?ATN, suspect aspiration PNA HTN, left knee prothesis, dyslipidemia, anemia Subjective Information 66 year old female, Mongolian speaking. Pt was receiving breathing treatment during [facility]. Observed clear liquid tray at bedside. progress note 02/13: DC NG tube and start PO as tolerated. Spoke to STEFANIE Mayorga RN stated for breakfast pt tolerated 2 juices, declined broth, RN will remove mask and encourage lunch shortly. No significant wasting noted. 02/11 KUB: mild ielus. Current Diet Order/ Nutrition Support Clear liquid Pertinent Medications Vitamin C, Lipitor, Culturelle , Solu-Medrol, Zofran, Protonix, Nacl 0.45% Pertinent Labs 02/13: potassium 3L 02/14: BUN 30H, creatinine 1.8H (declining) Nutritional Hx/Data Height 1.68 m Height (Calculated Centimeters) 167.6 Current Weight (lbs) 75.75 kg Weight (Calculated Kilograms) 75.7 Weight (Calculated Grams) 17807.9 [place] Body Weight 130 Weight Status Overweight GI Symptoms Skin Integrity/Comment: Josias 14. Non-pitting edema bilateral feet. inspector mechanical: skin tears. Estimated Nutritional Goals Calories/Kcals/Kg IBW 130lb/59.1kg Kcals Calculated 1478-1773kcal (25-30kcal/kg) Protein Calculated 59g (1g/kg) Fluid: ml 1478-1773ml (1ml/kcal) Nutritional Problem 1. Problem Problem Impaired nutrient utilization related to Etiology renal dysfunction, per MD note SU ?ATN Signs/Symptoms: BUN 30H, creatinine 1.8H Intervention/Recommendation Comments 1. Recommend advance diet as tolerated to low sodium diet, to aid in renal function. No renal restriction due to hx of hypokalemia. Expected Outcomes/Goals Expected Outcomes/Goals 1. Pt to resume diet and meet at least 75% fo estimated nutritional needs.
[2017-02-17] MEDS: Hydrocodone/APAP 5mg/325mg Tab PO PRN (19:00)
[2017-02-17] MEDS: Albuterol Nebulizer 2.5mg/3mL HHN PRN (19:36)
[2017-02-17] MEDS: Atorvastatin Calcium 10 MG TAB PO SCH (22:06)
[2017-02-18] MEDS: methylPREDNISolone SS 40 mg Vial IVP SCH ×3 (05:16→20:56)
[2017-02-18] MEDS: APAP/Codeine 300 mg/30 mg Tab PO PRN (05:19)
[2017-02-18 06:31] LABS: HEMATOCRIT 32.8 % (35.0-45.0); HEMOGLOBIN 11.3 gm/dL (11.7-16.1); MEAN CELL VOLUME 83.3 fl (81-100); MEAN CORPUSCULAR HEMOGLOBIN 28.8 pg (27.0-31.0); MEAN CORPUSCULAR HGB CONC 34.6 pg (28.0-36.0); MEAN PLATELET VOLUME 9.3 fl; RED BLOOD COUNT 3.93 Mil/cmm (3.80-5.20); RED CELL DISTRIBUTION WIDTH 16.9 % (11.5-20.0)
[2017-02-18 06:44] LABS: PLATELET COUNT 310 Th/cmm (150-400); WHITE BLOOD COUNT 35.2 Th/cmm (4.8-10.8)
[2017-02-18 06:47] LABS: ALB/GLOB RATIO 0.9 (1.0-1.8); ANION GAP 13.6 (7.0-16.0); BILIRUBIN,TOTAL 0.8 mg/dL (0.3-1.0); BUN/CREATININE RATIO 20.4; CALCIUM SERUM 8.3 mg/dL (8.6-10.3); CARBON DIOXIDE 31.3 mEq/L (21.0-31.0); CREATININE - SERUM 2.7 mg/dL (0.6-1.2); POTASSIUM SERUM 3.9 mEq/L (3.5-5.1)
[2017-02-18 07:27] LABS: BAND NEUTROPHILE 1 % (0-10); NEUTROPHILS 87 % (40-80); TOTAL CELLS COUNTED 100
[2017-02-18 07:28] LABS: ANISOCYTOSIS 1+; PLATELET ESTIMATE ADEQUATE (NORMAL); PLATELET MORPHOLOGY PLATELET CLUMPS SEEN (NORMAL)
[2017-02-18] MEDS: Hydrocodone/APAP 5mg/325mg Tab PO PRN (08:48)
[2017-02-18] MEDS: Multivitamin w/ Minerals Tab PO SCH (08:50)
[2017-02-18] MEDS: Potassium Chloride 20 mEq ER Tab PO SCH (08:51)
[2017-02-18] MEDS: Pantoprazole 40 mg EC Tab PO SCH (08:51)
[2017-02-18] MEDS: Lactobacillus Rhamnosus 10 Billion CFU Capsule PO SCH (08:52)
--- NOTE | 2017-02-18 10:32 | General Progress Note ---
Subjective - Review of Systems Subjective: pt is awake denies any pain pt states she in comfortable Objective - Results Result Diagrams: 02/18/17 05:55 02/18/17 05:55 Recent Labs: Laboratory Last Values WBC 35.2 Th/cmm (4.8-10.8) H* D 02/18/17 05:55 RBC 3.93 Mil/cmm (3.80-5.20) 02/18/17 05:55 Hgb 11.3 gm/dL (11.7-16.1) L 02/18/17 05:55 Hct 32.8 % (35.0-45.0) L 02/18/17 05:55 MCV 83.3 fl (81-100) 02/18/17 05:55 MCH 28.8 pg (27.0-31.0) 02/18/17 05:55 MCHC Differential 34.6 pg (28.0-36.0) 02/18/17 05:55 RDW 16.9 % (11.5-20.0) 02/18/17 05:55 Plt Count 310 Th/cmm (150-400) D 02/18/17 05:55 MPV 9.3 fl 02/18/17 05:55 Neutrophils % 84.8 % (40.0-80.0) H 02/16/17 05:00 Band Neutrophils % 1 % (0-10) 02/18/17 05:55 Lymphocytes % 10.0 % (20.0-50.0) L 02/16/17 05:00 Monocytes % 2.7 % (2.0-10.0) 02/16/17 05:00 Eosinophils % 0.1 % (0.0-5.0) 02/16/17 05:00 Basophils % 2.4 % (0.0-2.0) H 02/16/17 05:00 Neutrophils (Manual) 87 % (40-80) H 02/18/17 05:55 Lymphocytes 7 % (20-50) L 02/18/17 05:55 Monocytes 5 % (2-10) 02/18/17 05:55 Eosinophils 1 % (0-5) 02/15/17 05:00 Basophils 1 % (0-3) 02/09/17 20:27 Nucleated RBCs 3.0 % (0-0) H 02/18/17 05:55 Platelet Estimate ADEQUATE (NORMAL) 02/18/17 05:55 Platelet Morphology PLATELET CLUMPS SEEN (NORMAL) 02/18/17 05:55 Anisocytosis 1+ 02/18/17 05:55 RBC Morph Micro Appear ABNORMAL (NORMAL) 02/18/17 05:55 Eos Smear Source URINE 02/14/17 17:40 Eos Smear Total Cells NONE SEEN (NONE SEEN) 02/14/17 17:40 PT 12.3 SECONDS (9.5-11.5) H 02/09/17 20:27 INR 1.17 (0.5-1.4) 02/09/17 20:27 PTT (Actin FS) 25.6 SECONDS (26.0-38.0) L 02/09/17 20:27 Specimen Source Arterial 02/14/17 16:00 Sample Site Right Radial 02/14/17 16:00 pH 7.40 (7.35-7.45) 02/14/17 16:00 pCO2 33.0 mmHg (35.0-45.0) L 02/14/17 16:00 pO2 103.0 mmHg (80.0-100.0) H 02/14/17 16:00 HCO3 22.1 mEq/L (20.0-26.0) 02/14/17 16:00 Base Excess -3.6 mEq/L (-3.0-3.0) L 02/14/17 16:00 O2 Saturation 98.0 % (92.0-100.0) 02/14/17 16:00 Robin Test Positive 02/14/17 16:00 Vent Rate 12 02/14/17 16:00 Inspired O2 40 02/14/17 16:00 Tidal Volume NA 02/14/17 16:00 PEEP 6 02/14/17 16:00 Pressure (ins/psv/peep) 6 02/14/17 16:00 Critical Value LZHANG 02/14/17 16:00 Sodium 137 mEq/L (136-145) 02/18/17 05:55 Potassium 3.9 mEq/L (3.5-5.1) 02/18/17 05:55 Chloride 96 mEq/L (98-107) L 02/18/17 05:55 Carbon Dioxide 31.3 mEq/L (21.0-31.0) H 02/18/17 05:55 Anion Gap 13.6 (7.0-16.0) 02/18/17 05:55 BUN 55 mg/dL (7-25) H 02/18/17 05:55 Creatinine 2.7 mg/dL (0.6-1.2) H 02/18/17 05:55 Est GFR ( Amer) 22.7 ml/min (>90) 02/18/17 05:55 Est GFR (Non-Af Amer) 18.8 ml/min 02/18/17 05:55 BUN/Creatinine Ratio 20.4 02/18/17 05:55 Glucose 107 mg/dL (70-105) H 02/18/17 05:55 POC Glucose 170 MG/DL (70 - 105) H 02/12/17 09:42 Hemoglobin A1c % 5.1 % (4.0-6.0) 02/11/17 08:11 Whole Bld Lactic Acid 1.29 mmol/L (0.60-1.99) 02/16/17 05:00 Uric Acid 11.2 mg/dL (2.3-6.6) H 02/15/17 05:00 Calcium 8.3 mg/dL (8.6-10.3) L 02/18/17 05:55 Phosphorus 3.8 mg/dL (2.5-5.0) 02/15/17 05:00 Magnesium 2.2 mg/dL (1.9-2.7) 02/18/17 05:55 Total Bilirubin 0.8 mg/dL (0.3-1.0) 02/18/17 05:55 AST 324 U/L (13-39) H 02/18/17 05:55 ALT 164 U/L (7-52) H 02/18/17 05:55 Alkaline Phosphatase 397 U/L (34-104) H 02/18/17 05:55 Creatine Kinase 67 U/L (30-223) 02/12/17 04:41 CK-MB (CK-2) 1.1 ng/mL (0.6-6.3) 02/09/17 20:27 Troponin I 0.01 ng/mL (0.01-0.05) 02/09/17 20:27 B-Natriuretic Peptide 3790.0 pg/mL (5.0-100.0) H 02/18/17 05:55 Total Protein 5.6 gm/dL (6.0-8.3) L 02/18/17 05:55 Albumin 2.7 gm/dL (3.7-5.3) L 02/18/17 05:55 Globulin 2.9 gm/dL 02/18/17 05:55 Albumin/Globulin Ratio 0.9 (1.0-1.8) L 02/18/17 05:55 Amylase 23 U/L (29-103) L 02/13/17 05:03 Lipase 13 U/L (11-82) 02/13/17 05:03 Urine Source ZEE PORT 02/14/17 17:40 Urine Color YELLOW 02/14/17 17:40 Urine Clarity SLIGHT HAZY (CLEAR) 02/14/17 17:40 Urine pH 5.5 02/14/17 17:40 Ur Specific [place] 1.020 (1.005-1.030) 02/14/17 17:40 Urine Protein 100 mg/dL (NEGATIVE) H 02/14/17 17:40 Urine Glucose (UA) NEGATIVE mg/dL (NEGATIVE) 02/14/17 17:40 Urine Ketones NEGATIVE mg/dL (NEGATIVE) 02/14/17 17:40 Urine Blood MODERATE (NEGATIVE) H 02/14/17 17:40 Urine Nitrate NEGATIVE (NEGATIVE) 02/14/17 17:40 Urine Bilirubin NEGATIVE (NEGATIVE) 02/14/17 17:40 Urine Urobilinogen 0.2 E.U./dL (0.2 - 1.0) 02/14/17 17:40 Ur Leukocyte Esterase NEGATIVE (NEGATIVE) 02/14/17 17:40 Urine RBC 2-5 /hpf (0-5) 02/14/17 17:40 Urine WBC 2-5 /hpf (0-5) 02/14/17 17:40 Ur Epithelial Cells FEW /lpf (FEW) 02/14/17 17:40 Amorphous Sediment MANY URATES (NONE SEEN) 02/14/17 17:40 Urine Bacteria MODERATE /hpf (NONE SEEN) 02/14/17 17:40 Hyaline Casts 0-2 /lpf (0-2) H 02/09/17 21:05 Urine Yeast FEW /hpf (NONE SEEN) H 02/14/17 17:40 Ur Random Sodium 37 mmol/L 02/14/17 17:40 Urine Creatinine 32.9 mg/dl (Not Estab.) 02/14/17 21:55 Urine Microalbumin 332.1 ug/mL (Not Estab.) 02/14/17 21:55 Microalb/Creat Ratio 1009.4 mg/g creat (0.0-30.0) H 02/14/17 21:55 Stool Leukocyte NO WBC SEEN 02/12/17 00:05 - Physical Exam Vitals and I&O: Vital Signs Temp 97 F 02/18/17 04:00 Pulse 82 02/18/17 04:00 Resp 20 02/18/17 04:00 BP 118/67 02/18/17 08:53 Pulse Ox 98 02/18/17 04:00 Intake & Output 02/17/17 02/18/17 02/18/17 18:59 06:59 18:59 Intake Total 580 260 Output Total 450 Balance 580 -190 Weight (lbs) 78.925 kg 81.647 kg Intake: Intake, IV Amount 100 200 Piperacillin Sodium/ 100 200 Tazobact 4.5 gm In Sodium Chloride 0.9% 100 ml @ 100 mls/hr IV Q8HR PATRICIA Rx #:[id number] Oral 480 60 Output: Urine 450 Active Medications: Current Medications Acetaminophen (Tylenol) 650 mg PO Q4HR PRN PRN Reason: TEMP >100 OR PAIN Stop: 04/11/17 15:21 Acetaminophen/Codeine Phosphate (Tylenol W/Codeine #3) 1 tab PO Q6HR PRN PRN Reason: MODERATE PAIN Stop: 04/11/17 15:21 Last Admin: 02/18/17 05:19 Dose: 1 tab Acetaminophen/Hydrocodone Bitart ([place] 5mg/325mg) 2 tab PO Q4H PRN PRN Reason: Severe Pain Stop: 04/11/17 15:21 Last Admin: 02/18/17 08:48 Dose: 2 tab Albuterol Sulfate (Albuterol 2.5mg/3ml Neb Ud) 2.5 mg HHN Q4HRT PRN PRN Reason: Wheezing Stop: 04/13/17 08:21 Last Admin: 02/17/17 19:36 Dose: 2.5 mg Ascorbic Acid (Vitamin C) 500 mg PO DAILY [facility] Stop: 04/12/17 08:59 Last Admin: 02/18/17 08:50 Dose: 500 mg Atorvastatin Calcium (Lipitor) 10 mg PO HS PATRICIA PRN Reason: Protocol Stop: 04/11/17 20:59 Last Admin: 02/17/17 22:06 Dose: 10 mg Furosemide (Lasix) 40 mg IVP DAILY PATRICIA Stop: 04/18/17 08:59 Last Admin: 02/18/17 08:53 Dose: 40 mg Piperacillin Sod/Tazobactam (Sod 4.5 gm/ Sodium Chloride) 100 mls @ 100 mls/hr IV Q8HR PATRICIA Stop: 04/11/17 13:59 Last Infusion: 02/18/17 06:16 Dose: Infused Norepinephrine Bitartrate 8 mg (/ Dextrose) 258 mls @ 77.4 mls/hr IV TITR PRN; Protocol; 40 MCG/MIN PRN Reason: BP MAINTENANCE (PER PROTOCOL) Stop: 04/12/17 07:46 Last Titration: 02/15/17 16:30 Dose: 0 mcg/min, 0 mls/hr Diltiazem HCl 125 mg/ Dextrose 125 mls @ 10 mls/hr IV TITR PATRICIA; 10 MG/HR PRN Reason: Protocol Stop: 04/15/17 04:29 Last Titration: 02/15/17 10:18 Dose: Infused Sodium Chloride (Nacl 0.45%) 1,000 mls @ 0 mls/hr IV .Q0M PATRICIA PRN Reason: KVO Stop: 04/15/17 10:13 Last Admin: 02/14/17 11:04 Dose: 10 mls/hr Lactobacillus Rhamnosus (Culturelle) 1 each PO DAILY [facility] Stop: 04/13/17 08:59 Last Admin: 02/18/17 08:52 Dose: 1 each Methylprednisolone Sodium Succinate (Solu-Medrol) 20 mg IVP Q8HR PATRICIA Stop: 04/14/17 12:59 Last Admin: 02/18/17 05:16 Dose: 20 mg Miscellaneous (Probiotic Screen) 1 ea MC PRN PRN PRN Reason: PROTOCOL Stop: 04/12/17 09:13 Ondansetron HCl (Zofran) 4 mg IV Q8H PRN PRN Reason: Nausea / Vomiting Stop: 04/11/17 08:23 Last Admin: 02/16/17 09:10 Dose: 4 mg Pantoprazole Sodium (Protonix) 40 mg PO DAILY [facility] Stop: 04/12/17 08:59 Last Admin: 02/18/17 08:51 Dose: 40 mg Potassium Chloride (Klor-Con) 20 meq PO DAILY [facility] Stop: 04/17/17 08:59 Last Admin: 02/18/17 08:51 Dose: 20 meq General: Alert, No acute distress HEENT: Atraumatic, PERRLA, EOMI, Mucous membr. moist/pink Neck: Supple, +2 carotid pulse wo bruit Cardiovascular: Regular rate, Normal S1, Normal S2 Lungs: Other (few rhonchi) Abdomen: Bowel sounds, Soft Extremities: no Edema Neurological: Sensation intact Skin: no Rash Psych/Mental Status: Mood NL Assessment/Plan - Problem List Patient Problems: All Active Problems NAUSEA AND VOMITING WITH DEHYDRATION (Acute) sepsis (Acute) Sepsis affecting skin (Acute) L02.91 - Assessment Assessment: Current Active Problems Problem Status Onset NAUSEA AND VOMITING WITH DEHYDRATION Acute leukocytosis distended gall bladder r/o chelocystitis trachycardia - Plan Plan: as per order sheet Nutritional Asmnt/Malnutr-PDOC - Dietary Evaluation Malnutrition Findings (Please click <Entered> for more info): Nutritional Asmnt/Malnutrition Start: 02/14/17 13: 04 Text: Status: Complete Freq: Document 02/14/17 13:05 HERMANN (Rec: 02/14/17 13:21 HERMANN [id number]) Nutritional Asmnt/Malnutrition Patient General Information Nutritional Screening Moderate Risk Screening Pertinent Medical Hx/Surgical Hx Dx: Septic shock, hypotension, dehydration, metabolic acidosis improved, SU ?ATN, suspect aspiration PNA HTN, left knee prothesis, dyslipidemia, anemia Subjective Information 66 year old female, Iranian speaking. Pt was receiving breathing treatment during [facility]. Observed clear liquid tray at bedside. MD progress note 02/13: DC NG tube and start PO as tolerated. Spoke to STEFANIE Mayorga RN stated for breakfast pt tolerated 2 juices, declined terrance RN will remove mask and encourage lunch shortly. No significant wasting noted. 02/11 KUB: mild ielus. Current Diet Order/ Nutrition Support Clear liquid Pertinent Medications Vitamin C, Lipitor, Culturelle , Solu-Medrol, Zofran, Protonix, Nacl 0.45% Pertinent Labs 02/13: potassium 3L 7/10: BUN 30H, creatinine 1.8H (declining) Nutritional Hx/Data Height 1.68 m Height (Calculated Centimeters) 167.6 Current Weight (lbs) 75.75 kg Weight (Calculated Kilograms) 75.7 Weight (Calculated Grams) 76562.9 [place] Body Weight 130 Weight Status Overweight GI Symptoms Skin Integrity/Comment: Josias 14. Non-pitting edema bilateral feet. 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 Estimated Nutritional Goals Calories/Kcals/Kg IBW 130lb/59.1kg Kcals Calculated 1478-1773kcal (25-30kcal/kg) Protein Calculated 59g (1g/kg) Fluid: ml 1478-1773ml (1ml/kcal) Nutritional Problem 1. Problem Problem Impaired nutrient utilization related to Etiology renal dysfunction, per MD note SU ?ATN Signs/Symptoms: BUN 30H, creatinine 1.8H Intervention/Recommendation Comments 1. Recommend advance diet as tolerated to low sodium diet, to aid in renal function. No renal restriction due to hx of hypokalemia. Expected Outcomes/Goals Expected Outcomes/Goals 1. Pt to resume diet and meet at least 75% fo estimated nutritional needs.
--- NOTE | 2017-02-18 11:21 | Diagnostic Imaging Report ---
Portable chest x-ray HISTORY: Shortness of breath Compared with prior exam of February 17, 2017, the heart remains enlarged. There is persistent density in the left lower hemithorax that may be associated with pleural fluid. Underlying consolidation and/or atelectasis cannot be excluded. IMPRESSION: No change in the cardiopulmonary status as noted above.
--- NOTE | 2017-02-18 13:15 | Diagnostic Imaging Report ---
Examination: CT examination of the abdomen pelvis. The history: Abdominal pain Total DLP equals 778 CTDI equals 15.8 Findings: Multiple contiguous thin section of the abdomen pelvis obtained from lower thorax to pubic symphysis without the administration of intravenous or oral contrast material no prior studies available for comparison. The study demonstrates cardiomegaly. There is evidence of bilateral pneumonic infiltrates and effusion. The visualized abdomen demonstrates ascitic fluid. The liver parenchyma spleen are intact. Small amount of contrast material is noted in stomach. The kidneys demonstrate no evidence of obstructive uropathy or nephrolithiasis. The gallbladder is distended. Clinical correlation height scan might helpful. There is evidence of calcification of abdominal aorta and iliac vessels. There is evidence for umbilical hernia containing fat. Prominence of mucosal pattern of the large bowel loops might be consistent with inflammatory changes or colitis. The urinary bladder contracted Vargas catheter. The uterus is calcified due to fibroid infiltration. There is evidence of thickening of the wall of rectum. Bony structures demonstrate no evidence for lytic or blastic changes. IMPRESSION: 1. Bilateral pneumonia and effusions 2. Ascitic fluid in the abdomen. 3. Distention of the gallbladder, bile duct clinical correlation recommended height the scan might be helpful 3. Umbilical hernia containing fat. 4.. Prominence of mucosal pattern of the large bowel loops might be consistent with colitis versus inflammatory changes.
--- NOTE | 2017-02-18 14:22 | General Progress Note ---
Subjective - Review of Systems Service Date: 02/18/17 Subjective: More awake, verbal, mild tachypnea Objective - Results Result Diagrams: 02/18/17 05:55 02/18/17 05:55 Recent Labs: Laboratory Last Values WBC 35.2 Th/cmm (4.8-10.8) H* D 02/18/17 05:55 RBC 3.93 Mil/cmm (3.80-5.20) 02/18/17 05:55 Hgb 11.3 gm/dL (11.7-16.1) L 02/18/17 05:55 Hct 32.8 % (35.0-45.0) L 02/18/17 05:55 MCV 83.3 fl (81-100) 02/18/17 05:55 MCH 28.8 pg (27.0-31.0) 02/18/17 05:55 MCHC Differential 34.6 pg (28.0-36.0) 02/18/17 05:55 RDW 16.9 % (11.5-20.0) 02/18/17 05:55 Plt Count 310 Th/cmm (150-400) D 02/18/17 05:55 MPV 9.3 fl 02/18/17 05:55 Neutrophils % 84.8 % (40.0-80.0) H 02/16/17 05:00 Band Neutrophils % 1 % (0-10) 02/18/17 05:55 Lymphocytes % 10.0 % (20.0-50.0) L 02/16/17 05:00 Monocytes % 2.7 % (2.0-10.0) 02/16/17 05:00 Eosinophils % 0.1 % (0.0-5.0) 02/16/17 05:00 Basophils % 2.4 % (0.0-2.0) H 02/16/17 05:00 Neutrophils (Manual) 87 % (40-80) H 02/18/17 05:55 Lymphocytes 7 % (20-50) L 02/18/17 05:55 Monocytes 5 % (2-10) 02/18/17 05:55 Eosinophils 1 % (0-5) 02/15/17 05:00 Basophils 1 % (0-3) 02/09/17 20:27 Nucleated RBCs 3.0 % (0-0) H 02/18/17 05:55 Platelet Estimate ADEQUATE (NORMAL) 02/18/17 05:55 Platelet Morphology PLATELET CLUMPS SEEN (NORMAL) 02/18/17 05:55 Anisocytosis 1+ 02/18/17 05:55 RBC Morph Micro Appear ABNORMAL (NORMAL) 02/18/17 05:55 Eos Smear Source URINE 02/14/17 17:40 Eos Smear Total Cells NONE SEEN (NONE SEEN) 02/14/17 17:40 PT 12.3 SECONDS (9.5-11.5) H 02/09/17 20:27 INR 1.17 (0.5-1.4) 02/09/17 20:27 PTT (Actin FS) 25.6 SECONDS (26.0-38.0) L 02/09/17 20:27 Specimen Source Arterial 02/14/17 16:00 Sample Site Right Radial 02/14/17 16:00 pH 7.40 (7.35-7.45) 02/14/17 16:00 pCO2 33.0 mmHg (35.0-45.0) L 02/14/17 16:00 pO2 103.0 mmHg (80.0-100.0) H 02/14/17 16:00 HCO3 22.1 mEq/L (20.0-26.0) 02/14/17 16:00 Base Excess -3.6 mEq/L (-3.0-3.0) L 02/14/17 16:00 O2 Saturation 98.0 % (92.0-100.0) 02/14/17 16:00 Robin Test Positive 02/14/17 16:00 Vent Rate 12 02/14/17 16:00 Inspired O2 40 02/14/17 16:00 Tidal Volume NA 02/14/17 16:00 PEEP 6 02/14/17 16:00 Pressure (ins/psv/peep) 6 02/14/17 16:00 Critical Value LZHANG 02/14/17 16:00 Sodium 137 mEq/L (136-145) 02/18/17 05:55 Potassium 3.9 mEq/L (3.5-5.1) 02/18/17 05:55 Chloride 96 mEq/L (98-107) L 02/18/17 05:55 Carbon Dioxide 31.3 mEq/L (21.0-31.0) H 02/18/17 05:55 Anion Gap 13.6 (7.0-16.0) 02/18/17 05:55 BUN 55 mg/dL (7-25) H 02/18/17 05:55 Creatinine 2.7 mg/dL (0.6-1.2) H 02/18/17 05:55 Est GFR ( Amer) 22.7 ml/min (>90) 02/18/17 05:55 Est GFR (Non-Af Amer) 18.8 ml/min 02/18/17 05:55 BUN/Creatinine Ratio 20.4 02/18/17 05:55 Glucose 107 mg/dL (70-105) H 02/18/17 05:55 POC Glucose 170 MG/DL (70 - 105) H 02/12/17 09:42 Hemoglobin A1c % 5.1 % (4.0-6.0) 02/11/17 08:11 Whole Bld Lactic Acid 1.29 mmol/L (0.60-1.99) 02/16/17 05:00 Uric Acid 11.2 mg/dL (2.3-6.6) H 02/15/17 05:00 Calcium 8.3 mg/dL (8.6-10.3) L 02/18/17 05:55 Phosphorus 3.8 mg/dL (2.5-5.0) 02/15/17 05:00 Magnesium 2.2 mg/dL (1.9-2.7) 02/18/17 05:55 Total Bilirubin 0.8 mg/dL (0.3-1.0) 02/18/17 05:55 AST 324 U/L (13-39) H 02/18/17 05:55 ALT 164 U/L (7-52) H 02/18/17 05:55 Alkaline Phosphatase 397 U/L (34-104) H 02/18/17 05:55 Creatine Kinase 67 U/L (30-223) 02/12/17 04:41 CK-MB (CK-2) 1.1 ng/mL (0.6-6.3) 02/09/17 20:27 Troponin I 0.01 ng/mL (0.01-0.05) 02/09/17 20:27 B-Natriuretic Peptide 3790.0 pg/mL (5.0-100.0) H 02/18/17 05:55 Total Protein 5.6 gm/dL (6.0-8.3) L 02/18/17 05:55 Albumin 2.7 gm/dL (3.7-5.3) L 02/18/17 05:55 Globulin 2.9 gm/dL 02/18/17 05:55 Albumin/Globulin Ratio 0.9 (1.0-1.8) L 02/18/17 05:55 Amylase 23 U/L (29-103) L 02/13/17 05:03 Lipase 13 U/L (11-82) 02/13/17 05:03 Urine Source ZEE PORT 02/14/17 17:40 Urine Color YELLOW 02/14/17 17:40 Urine Clarity SLIGHT HAZY (CLEAR) 02/14/17 17:40 Urine pH 5.5 02/14/17 17:40 Ur Specific [place] 1.020 (1.005-1.030) 02/14/17 17:40 Urine Protein 100 mg/dL (NEGATIVE) H 02/14/17 17:40 Urine Glucose (UA) NEGATIVE mg/dL (NEGATIVE) 02/14/17 17:40 Urine Ketones NEGATIVE mg/dL (NEGATIVE) 02/14/17 17:40 Urine Blood MODERATE (NEGATIVE) H 02/14/17 17:40 Urine Nitrate NEGATIVE (NEGATIVE) 02/14/17 17:40 Urine Bilirubin NEGATIVE (NEGATIVE) 02/14/17 17:40 Urine Urobilinogen 0.2 E.U./dL (0.2 - 1.0) 02/14/17 17:40 Ur Leukocyte Esterase NEGATIVE (NEGATIVE) 02/14/17 17:40 Urine RBC 2-5 /hpf (0-5) 02/14/17 17:40 Urine WBC 2-5 /hpf (0-5) 02/14/17 17:40 Ur Epithelial Cells FEW /lpf (FEW) 02/14/17 17:40 Amorphous Sediment MANY URATES (NONE SEEN) 02/14/17 17:40 Urine Bacteria MODERATE /hpf (NONE SEEN) 02/14/17 17:40 Hyaline Casts 0-2 /lpf (0-2) H 02/09/17 21:05 Urine Yeast FEW /hpf (NONE SEEN) H 02/14/17 17:40 Ur Random Sodium 37 mmol/L 07/10/17 17:40 Urine Creatinine 32.9 mg/dl (Not Estab.) 02/14/17 21:55 Urine Microalbumin 332.1 ug/mL (Not Estab.) 02/14/17 21:55 Microalb/Creat Ratio 1009.4 mg/g creat (0.0-30.0) H 02/14/17 21:55 Stool Leukocyte NO WBC SEEN 02/12/17 00:05 - Physical Exam Vitals and I&O: Vital Signs Temp 96.3 F 02/18/17 08:00 Pulse 91 02/18/17 08:20 Resp 18 02/18/17 08:32 BP 118/67 02/18/17 08:53 Pulse Ox 98 02/18/17 08:20 Intake & Output 02/17/17 02/18/17 02/18/17 18:59 06:59 18:59 Intake Total 580 260 Output Total 450 Balance 580 -190 Weight (lbs) 78.925 kg 81.647 kg Intake: Intake, IV Amount 100 200 Piperacillin Sodium/ 100 200 Tazobact 4.5 gm In Sodium Chloride 0.9% 100 ml @ 100 mls/hr IV Q8HR [facility] Rx #:[id number] Oral 480 60 Output: Urine 450 Active Medications: Current Medications Acetaminophen (Tylenol) 650 mg PO Q4HR PRN PRN Reason: TEMP >100 OR PAIN Stop: 04/11/17 15:21 Acetaminophen/Codeine Phosphate (Tylenol W/Codeine #3) 1 tab PO Q6HR PRN PRN Reason: MODERATE PAIN Stop: 04/11/17 15:21 Last Admin: 02/18/17 05:19 Dose: 1 tab Acetaminophen/Hydrocodone Bitart ([place] 5mg/325mg) 2 tab PO Q4H PRN PRN Reason: Severe Pain Stop: 04/11/17 15:21 Last Admin: 02/18/17 08:48 Dose: 2 tab Albuterol Sulfate (Albuterol 2.5mg/3ml Neb Ud) 2.5 mg HHN Q4HRT PRN PRN Reason: Wheezing Stop: 04/13/17 08:21 Last Admin: 02/17/17 19:36 Dose: 2.5 mg Ascorbic Acid (Vitamin C) 500 mg PO DAILY PATRICIA Stop: 04/12/17 08:59 Last Admin: 02/18/17 08:50 Dose: 500 mg Atorvastatin Calcium (Lipitor) 10 mg PO HS PATRICIA PRN Reason: Protocol Stop: 04/11/17 20:59 Last Admin: 02/17/17 22:06 Dose: 10 mg Furosemide (Lasix) 40 mg IVP DAILY PATRICIA Stop: 04/18/17 08:59 Last Admin: 02/18/17 08:53 Dose: 40 mg Piperacillin Sod/Tazobactam (Sod 4.5 gm/ Sodium Chloride) 100 mls @ 100 mls/hr IV Q8HR PATRICIA Stop: 04/11/17 13:59 Last Admin: 02/18/17 13:35 Dose: 100 mls/hr Norepinephrine Bitartrate 8 mg (/ Dextrose) 258 mls @ 77.4 mls/hr IV TITR PRN; Protocol; 40 MCG/MIN PRN Reason: BP MAINTENANCE (PER PROTOCOL) Stop: 04/12/17 07:46 Last Titration: 02/15/17 16:30 Dose: 0 mcg/min, 0 mls/hr Diltiazem HCl 125 mg/ Dextrose 125 mls @ 10 mls/hr IV TITR PATRICIA; 10 MG/HR PRN Reason: Protocol Stop: 04/15/17 04:29 Last Titration: 02/15/17 10:18 Dose: Infused Sodium Chloride (Nacl 0.45%) 1,000 mls @ 0 mls/hr IV .Q0M PATRICIA PRN Reason: KVO Stop: 04/15/17 10:13 Last Admin: 02/14/17 11:04 Dose: 10 mls/hr Lactobacillus Rhamnosus (Culturelle) 1 each PO DAILY PATRICIA Stop: 04/13/17 08:59 Last Admin: 02/18/17 08:52 Dose: 1 each Methylprednisolone Sodium Succinate (Solu-Medrol) 20 mg IVP Q8HR PATRICIA Stop: 04/14/17 12:59 Last Admin: 02/18/17 13:35 Dose: 20 mg Miscellaneous (Probiotic Screen) 1 ea MC PRN PRN PRN Reason: PROTOCOL Stop: 04/12/17 09:13 Miscellaneous (Clinical Monitoring) 1 ea MC DAILY PRN PRN Reason: RENAL Stop: 04/19/17 12:28 Ondansetron HCl (Zofran) 4 mg IV Q8H PRN PRN Reason: Nausea / Vomiting Stop: 04/11/17 08:23 Last Admin: 02/16/17 09:10 Dose: 4 mg Pantoprazole Sodium (Protonix) 40 mg PO DAILY PATRICIA Stop: 04/12/17 08:59 Last Admin: 02/18/17 08:51 Dose: 40 mg Potassium Chloride (Klor-Con) 20 meq PO DAILY PATRICIA Stop: 04/17/17 08:59 Last Admin: 02/18/17 08:51 Dose: 20 meq General: Alert, No acute distress, Mild distress HEENT: Atraumatic, PERRLA, EOMI, Mucous membr. moist/pink Neck: Supple, +2 carotid pulse wo bruit Cardiovascular: Regular rate, Normal S1, Normal S2 Lungs: Other (few rhonchi) Abdomen: Bowel sounds, Soft Extremities: no Edema Neurological: Sensation intact Skin: no Rash Psych/Mental Status: Mood NL Assessment/Plan - Problem List Patient Problems: All Active Problems NAUSEA AND VOMITING WITH DEHYDRATION (Acute) sepsis (Acute) Sepsis affecting skin (Acute) L02.91 - Assessment Assessment: Acute kidney injury secondary to acute tubular injury Fractional excretion of sodium is 1.1% suggestive of intrinsic renal failure Shock secondary to sepsis Distended gallbladder with normal acute cholecystitis Abdominal pain secondary to ileus Ileus secondary to sepsis Acute decompensation of systolic congestive heart failure(EJF 15-20%) Respiratory failure secondary to aspiration pneumonia/CHF Anemia of chronic kidney disease Dyslipidemia Status post Infected prosthesis left knee, status post I&D Purely anion gap metabolic acidosis with respiratory alkalosis Sepsis secondary to aspiration pneumonia Worsening liver enzymes due to sepsis, medications, hypotension - Plan Plan: Lab - Result Diagrams 02/15/17 05:00 02/15/17 05:00 Current Medications Acetaminophen (Tylenol) 650 mg PO Q4HR PRN PRN Reason: TEMP >100 OR PAIN Stop: 04/11/17 15:21 Acetaminophen/Codeine Phosphate (Tylenol W/Codeine #3) 1 tab PO Q6HR PRN PRN Reason: MODERATE PAIN Stop: 04/11/17 15:21 Last Admin: 02/14/17 02:08 Dose: 1 tab Acetaminophen/Hydrocodone Bitart ([place] 5mg/325mg) 2 tab PO Q4H PRN PRN Reason: Severe Pain Stop: 04/11/17 15:21 Last Admin: 02/15/17 00:06 Dose: 2 tab Albuterol Sulfate (Albuterol 2.5mg/3ml Neb Ud) 2.5 mg HHN Q4HRT PRN PRN Reason: Wheezing Stop: 04/13/17 08:21 Last Admin: 02/14/17 15:54 Dose: 2.5 mg Ascorbic Acid (Vitamin C) 500 mg PO DAILY PATRICIA Stop: 04/12/17 08:59 Last Admin: 02/15/17 09:33 Dose: 500 mg Atorvastatin Calcium (Lipitor) 10 mg PO HS PATRICIA PRN Reason: Protocol Stop: 04/11/17 20:59 Last Admin: 02/14/17 20:49 Dose: 10 mg Furosemide (Lasix) 40 mg IVP BID PATRICIA Stop: 04/14/17 08:59 Last Admin: 02/15/17 09:33 Dose: 40 mg Piperacillin Sod/Tazobactam (Sod 4.5 gm/ Sodium Chloride) 100 mls @ 100 mls/hr IV Q8HR PATRICIA Stop: 04/11/17 13:59 Last Admin: 02/15/17 05:23 Dose: 100 mls/hr Norepinephrine Bitartrate 8 mg (/ Dextrose) 258 mls @ 77.4 mls/hr IV TITR PRN; Protocol; 40 MCG/MIN PRN Reason: BP MAINTENANCE (PER PROTOCOL) Stop: 04/12/17 07:46 Last Admin: 02/15/17 01:45 Dose: 5.16 mcg/min, 9.98 mls/hr Diltiazem HCl 125 mg/ Dextrose 125 mls @ 10 mls/hr IV TITR PATRICIA; 10 MG/HR PRN Reason: Protocol Stop: 04/15/17 04:29 Last Titration: 02/15/17 10:18 Dose: Infused Sodium Chloride (Nacl 0.45%) 1,000 mls @ 0 mls/hr IV .Q0M PATRICIA PRN Reason: KVO Stop: 04/15/17 10:13 Last Admin: 02/14/17 11:04 Dose: 10 mls/hr Lactobacillus Rhamnosus (Culturelle) 1 each PO DAILY PATRICIA Stop: 04/13/17 08:59 Last Admin: 02/15/17 09:33 Dose: 1 each Methylprednisolone Sodium Succinate (Solu-Medrol) 20 mg IVP Q8HR PATRICIA Stop: 04/14/17 12:59 Last Admin: 02/15/17 05:23 Dose: 20 mg Miscellaneous (Probiotic Screen) 1 ea MC PRN PRN PRN Reason: PROTOCOL Stop: 04/12/17 09:13 Ondansetron HCl (Zofran) 4 mg IV Q8H PRN PRN Reason: Nausea / Vomiting Stop: 04/11/17 08:23 Last Admin: 02/12/17 00:59 Dose: 4 mg Pantoprazole Sodium (Protonix) 40 mg PO DAILY [facility] Stop: 04/12/17 08:59 Last Admin: 02/15/17 09:32 Dose: 40 mg Kidney function worse with a BUN/creatinine of 55/2.7 Chest x-ray basically the same with bilateral effusions, pulmonary congestion Continue diuretics for now due to CHF, elevated BNP(3790) Off Levophed Monitor electrolytes and CBC along with chest x-ray Replace potassium and magnesium White count continues to increase now at 35.2, requests stool for C. difficile Liver enzymes slightly improved Discussed with family about the possibility of dialysis if chest x-ray continues to show CHF with very poor response to diuretics and worsening kidney function Nutritional Asmnt/Malnutr-PDOC - Dietary Evaluation Malnutrition Findings (Please click <Entered> for more info): Nutritional Asmnt/Malnutrition Start: 02/14/17 13: 04 Text: Status: Complete Freq: Document 02/14/17 13:05 GSUN (Rec: 02/14/17 13:21 GSUN [id number]) Nutritional Asmnt/Malnutrition Patient General Information Nutritional Screening Moderate Risk Screening Pertinent Medical Hx/Surgical Hx Dx: Septic shock, hypotension, dehydration, metabolic acidosis improved, SU ?ATN, suspect aspiration PNA HTN, left knee prothesis, dyslipidemia, anemia Subjective Information 66 year old female, Mexican speaking. Pt was receiving breathing treatment during [facility] visit. Observed clear liquid tray at bedside. MD progress note 02/13: DC NG tube and start PO as tolerated. Spoke to STEFANIE Mayorga RN stated for breakfast pt tolerated 2 juices, declined broth, RN will remove mask and encourage lunch shortly. No significant wasting noted. 02/11 KUB: mild ielus. Current Diet Order/ Nutrition Support Clear liquid Pertinent Medications Vitamin C, Lipitor, Culturelle , Solu-Medrol, Zofran, Protonix, Nacl 0.45% Pertinent Labs 02/13: potassium 3L 02/14: BUN 30H, creatinine 1.8H (declining) Nutritional Hx/Data Height 1.68 m Height (Calculated Centimeters) 167.6 Current Weight (lbs) 75.75 kg Weight (Calculated Kilograms) 75.7 Weight (Calculated Grams) 93833.9 [place] Body Weight 130 Weight Status Overweight GI Symptoms Skin Integrity/Comment: Josias 14. Non-pitting edema bilateral feet. 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 Estimated Nutritional Goals Calories/Kcals/Kg IBW 130lb/59.1kg Kcals Calculated 1478-1773kcal (25-30kcal/kg) Protein Calculated 59g (1g/kg) Fluid: ml 1478-1773ml (1ml/kcal) Nutritional Problem 1. Problem Problem Impaired nutrient utilization related to Etiology renal dysfunction, per MD note SU ?ATN Signs/Symptoms: BUN 30H, creatinine 1.8H Intervention/Recommendation Comments 1. Recommend advance diet as tolerated to low sodium diet, to aid in renal function. No renal restriction due to hx of hypokalemia. Expected Outcomes/Goals Expected Outcomes/Goals 1. Pt to resume diet and meet at least 75% fo estimated nutritional needs.
[2017-02-18] MEDS: Atorvastatin Calcium 10 MG TAB PO SCH (20:56)
--- NOTE | 2017-02-18 21:43 | Infectious Disease Prog Note ---
Infectious Disease Subjective - Review of Systems Service Date: 02/18/17 Subjective: There is no new change, no fever. No more nausea and vomiting. No diarhea. Patient WBC count went up to 35K so CT of the abd and pelvis performed and it suspected cholecystitis and colitis. It has suggested B/l pneumonia. Infectious Disease Objective - Results Result Diagrams: 02/18/17 05:55 02/18/17 05:55 Recent Labs: Laboratory Last Values WBC 35.2 Th/cmm (4.8-10.8) H* D 02/18/17 05:55 RBC 3.93 Mil/cmm (3.80-5.20) 02/18/17 05:55 Hgb 11.3 gm/dL (11.7-16.1) L 02/18/17 05:55 Hct 32.8 % (35.0-45.0) L 02/18/17 05:55 MCV 83.3 fl (81-100) 02/18/17 05:55 MCH 28.8 pg (27.0-31.0) 02/18/17 05:55 MCHC Differential 34.6 pg (28.0-36.0) 02/18/17 05:55 RDW 16.9 % (11.5-20.0) 02/18/17 05:55 Plt Count 310 Th/cmm (150-400) D 02/18/17 05:55 MPV 9.3 fl 02/18/17 05:55 Neutrophils % 84.8 % (40.0-80.0) H 02/16/17 05:00 Band Neutrophils % 1 % (0-10) 02/18/17 05:55 Lymphocytes % 10.0 % (20.0-50.0) L 02/16/17 05:00 Monocytes % 2.7 % (2.0-10.0) 02/16/17 05:00 Eosinophils % 0.1 % (0.0-5.0) 02/16/17 05:00 Basophils % 2.4 % (0.0-2.0) H 02/16/17 05:00 Neutrophils (Manual) 87 % (40-80) H 02/18/17 05:55 Lymphocytes 7 % (20-50) L 02/18/17 05:55 Monocytes 5 % (2-10) 02/18/17 05:55 Eosinophils 1 % (0-5) 02/15/17 05:00 Basophils 1 % (0-3) 02/09/17 20:27 Nucleated RBCs 3.0 % (0-0) H 02/18/17 05:55 Platelet Estimate ADEQUATE (NORMAL) 02/18/17 05:55 Platelet Morphology PLATELET CLUMPS SEEN (NORMAL) 02/18/17 05:55 Anisocytosis 1+ 02/18/17 05:55 RBC Morph Micro Appear ABNORMAL (NORMAL) 02/18/17 05:55 Eos Smear Source URINE 02/14/17 17:40 Eos Smear Total Cells NONE SEEN (NONE SEEN) 02/14/17 17:40 PT 12.3 SECONDS (9.5-11.5) H 02/09/17 20:27 INR 1.17 (0.5-1.4) 02/09/17 20:27 PTT (Actin FS) 25.6 SECONDS (26.0-38.0) L 02/09/17 20:27 Specimen Source Arterial 02/14/17 16:00 Sample Site Right Radial 02/14/17 16:00 pH 7.40 (7.35-7.45) 02/14/17 16:00 pCO2 33.0 mmHg (35.0-45.0) L 02/14/17 16:00 pO2 103.0 mmHg (80.0-100.0) H 02/14/17 16:00 HCO3 22.1 mEq/L (20.0-26.0) 02/14/17 16:00 Base Excess -3.6 mEq/L (-3.0-3.0) L 02/14/17 16:00 O2 Saturation 98.0 % (92.0-100.0) 02/14/17 16:00 Robin Test Positive 02/14/17 16:00 Vent Rate 12 02/14/17 16:00 Inspired O2 40 02/14/17 16:00 Tidal Volume NA 02/14/17 16:00 PEEP 6 02/14/17 16:00 Pressure (ins/psv/peep) 6 02/14/17 16:00 Critical Value LZHANG 02/14/17 16:00 Sodium 137 mEq/L (136-145) 02/18/17 05:55 Potassium 3.9 mEq/L (3.5-5.1) 02/18/17 05:55 Chloride 96 mEq/L (98-107) L 02/18/17 05:55 Carbon Dioxide 31.3 mEq/L (21.0-31.0) H 02/18/17 05:55 Anion Gap 13.6 (7.0-16.0) 02/18/17 05:55 BUN 55 mg/dL (7-25) H 02/18/17 05:55 Creatinine 2.7 mg/dL (0.6-1.2) H 02/18/17 05:55 Est GFR ( Amer) 22.7 ml/min (>90) 02/18/17 05:55 Est GFR (Non-Af Amer) 18.8 ml/min 02/18/17 05:55 BUN/Creatinine Ratio 20.4 02/18/17 05:55 Glucose 107 mg/dL (70-105) H 02/18/17 05:55 POC Glucose 170 MG/DL (70 - 105) H 02/12/17 09:42 Hemoglobin A1c % 5.1 % (4.0-6.0) 02/11/17 08:11 Whole Bld Lactic Acid 1.29 mmol/L (0.60-1.99) 02/16/17 05:00 Uric Acid 11.2 mg/dL (2.3-6.6) H 02/15/17 05:00 Calcium 8.3 mg/dL (8.6-10.3) L 02/18/17 05:55 Phosphorus 3.8 mg/dL (2.5-5.0) 02/15/17 05:00 Magnesium 2.2 mg/dL (1.9-2.7) 02/18/17 05:55 Total Bilirubin 0.8 mg/dL (0.3-1.0) 02/18/17 05:55 AST 324 U/L (13-39) H 02/18/17 05:55 ALT 164 U/L (7-52) H 02/18/17 05:55 Alkaline Phosphatase 397 U/L (34-104) H 02/18/17 05:55 Creatine Kinase 67 U/L (30-223) 02/12/17 04:41 CK-MB (CK-2) 1.1 ng/mL (0.6-6.3) 02/09/17 20:27 Troponin I 0.01 ng/mL (0.01-0.05) 02/09/17 20:27 B-Natriuretic Peptide 3790.0 pg/mL (5.0-100.0) H 02/18/17 05:55 Total Protein 5.6 gm/dL (6.0-8.3) L 02/18/17 05:55 Albumin 2.7 gm/dL (3.7-5.3) L 02/18/17 05:55 Globulin 2.9 gm/dL 02/18/17 05:55 Albumin/Globulin Ratio 0.9 (1.0-1.8) L 02/18/17 05:55 Amylase 23 U/L (29-103) L 02/13/17 05:03 Lipase 13 U/L (11-82) 02/13/17 05:03 Urine Source [place]EE [place] 02/14/17 17:40 Urine Color YELLOW 02/14/17 17:40 Urine Clarity SLIGHT HAZY (CLEAR) 02/14/17 17:40 Urine pH 5.5 02/14/17 17:40 Ur Specific [place] 1.020 (1.005-1.030) 02/14/17 17:40 Urine Protein 100 mg/dL (NEGATIVE) H 02/14/17 17:40 Urine Glucose (UA) NEGATIVE mg/dL (NEGATIVE) 02/14/17 17:40 Urine Ketones NEGATIVE mg/dL (NEGATIVE) 02/14/17 17:40 Urine Blood MODERATE (NEGATIVE) H 02/14/17 17:40 Urine Nitrate NEGATIVE (NEGATIVE) 02/14/17 17:40 Urine Bilirubin NEGATIVE (NEGATIVE) 02/14/17 17:40 Urine Urobilinogen 0.2 E.U./dL (0.2 - 1.0) 02/14/17 17:40 Ur Leukocyte Esterase NEGATIVE (NEGATIVE) 02/14/17 17:40 Urine RBC 2-5 /hpf (0-5) 02/14/17 17:40 Urine WBC 2-5 /hpf (0-5) 02/14/17 17:40 Ur Epithelial Cells FEW /lpf (FEW) 02/14/17 17:40 Amorphous Sediment MANY URATES (NONE SEEN) 02/14/17 17:40 Urine Bacteria MODERATE /hpf (NONE SEEN) 02/14/17 17:40 Hyaline Casts 0-2 /lpf (0-2) H 02/09/17 21:05 Urine Yeast FEW /hpf (NONE SEEN) H 02/14/17 17:40 Ur Random Sodium 37 mmol/L 02/14/17 17:40 Urine Creatinine 32.9 mg/dl (Not Estab.) 02/14/17 21:55 Urine Microalbumin 332.1 ug/mL (Not Estab.) 02/14/17 21:55 Microalb/Creat Ratio 1009.4 mg/g creat (0.0-30.0) H 02/14/17 21:55 Stool Leukocyte NO WBC SEEN 02/12/17 00:05 - Physical Exam Vitals and I&O: Vital Signs Temp 97 F 02/18/17 20:00 Pulse 75 02/18/17 20:00 Resp 18 02/18/17 20:00 BP 108/70 02/18/17 20:00 Pulse Ox 95 02/18/17 20:00 Intake & Output 02/18/17 02/18/17 02/19/17 06:59 18:59 06:59 Intake Total 260 580 Output Total 450 1400 Balance -190 -820 Weight (lbs) 81.647 kg 81.647 kg Intake: Intake, IV Amount 200 100 Piperacillin Sodium/ 200 100 Tazobact 4.5 gm In Sodium Chloride 0.9% 100 ml @ 100 mls/hr IV Q8HR [facility] Rx #:[id number] Oral 60 480 Output: Urine 450 1400 Other: # Bowel Movements 1 Active Medications: Current Medications Acetaminophen (Tylenol) 650 mg PO Q4HR PRN PRN Reason: TEMP >100 OR PAIN Stop: 04/11/17 15:21 Acetaminophen/Codeine Phosphate (Tylenol W/Codeine #3) 1 tab PO Q6HR PRN PRN Reason: MODERATE PAIN Stop: 04/11/17 15:21 Last Admin: 02/18/17 05:19 Dose: 1 tab Acetaminophen/Hydrocodone Bitart (Theresa 5mg/325mg) 2 tab PO Q4H PRN PRN Reason: Severe Pain Stop: 04/11/17 15:21 Last Admin: 02/18/17 08:48 Dose: 2 tab Albuterol Sulfate (Albuterol 2.5mg/3ml Neb Ud) 2.5 mg HHN Q4HRT PRN PRN Reason: Wheezing Stop: 04/13/17 08:21 Last Admin: 02/17/17 19:36 Dose: 2.5 mg Ascorbic Acid (Vitamin C) 500 mg PO DAILY PATRICIA Stop: 04/12/17 08:59 Last Admin: 02/18/17 08:50 Dose: 500 mg Atorvastatin Calcium (Lipitor) 10 mg PO HS PATRICIA PRN Reason: Protocol Stop: 04/11/17 20:59 Last Admin: 02/18/17 20:56 Dose: 10 mg Furosemide (Lasix) 40 mg IVP DAILY PATRICIA Stop: 04/18/17 08:59 Last Admin: 02/18/17 08:53 Dose: 40 mg Furosemide (Lasix) 40 mg IVP BID [facility] Stop: 04/19/17 16:59 Last Admin: 02/18/17 16:37 Dose: 40 mg Piperacillin Sod/Tazobactam (Sod 4.5 gm/ Sodium Chloride) 100 mls @ 100 mls/hr IV Q8HR PATRICIA Stop: 04/11/17 13:59 Last Admin: 02/18/17 20:55 Dose: 100 mls/hr Norepinephrine Bitartrate 8 mg (/ Dextrose) 258 mls @ 77.4 mls/hr IV TITR PRN; Protocol; 40 MCG/MIN PRN Reason: BP MAINTENANCE (PER PROTOCOL) Stop: 04/12/17 07:46 Last Titration: 02/15/17 16:30 Dose: 0 mcg/min, 0 mls/hr Diltiazem HCl 125 mg/ Dextrose 125 mls @ 10 mls/hr IV TITR PATRICIA; 10 MG/HR PRN Reason: Protocol Stop: 04/15/17 04:29 Last Titration: 02/15/17 10:18 Dose: Infused Sodium Chloride (Nacl 0.45%) 1,000 mls @ 0 mls/hr IV .Q0M PATRICIA PRN Reason: KVO Stop: 04/15/17 10:13 Last Admin: 02/14/17 11:04 Dose: 10 mls/hr Lactobacillus Rhamnosus (Culturelle) 1 each PO DAILY PATRICIA Stop: 04/13/17 08:59 Last Admin: 02/18/17 08:52 Dose: 1 each Methylprednisolone Sodium Succinate (Solu-Medrol) 20 mg IVP Q8HR PATRICIA Stop: 04/14/17 12:59 Last Admin: 02/18/17 20:56 Dose: 20 mg Miscellaneous (Probiotic Screen) 1 ea MC PRN PRN PRN Reason: PROTOCOL Stop: 04/12/17 09:13 Miscellaneous (Clinical Monitoring) 1 ea MC DAILY PRN PRN Reason: RENAL Stop: 04/19/17 12:28 Ondansetron HCl (Zofran) 4 mg IV Q8H PRN PRN Reason: Nausea / Vomiting Stop: 04/11/17 08:23 Last Admin: 02/16/17 09:10 Dose: 4 mg Pantoprazole Sodium (Protonix) 40 mg PO DAILY PATRICIA Stop: 04/12/17 08:59 Last Admin: 02/18/17 08:51 Dose: 40 mg Potassium Chloride (Klor-Con) 20 meq PO DAILY [facility] Stop: 04/17/17 08:59 Last Admin: 02/18/17 08:51 Dose: 20 meq General: no acute distress, well developed, well nourished HEENT: atraumatic, normocephalic Neck: supple, no thyromegaly Cardiovascular: S1S2, regular Lungs: clear to auscultation bilaterally, clear to percussion Abdomen: soft, no tender, no distended Extremities: other (left leg surgical incision is healing well.), no cyanosis, no clubbing, no edema Neurological: awake, alert, oriented Skin: intact Infectious Disease Assmt/Plan - Problem List Patient Problems: All Active Problems NAUSEA AND VOMITING WITH DEHYDRATION (Acute) sepsis (Acute) Sepsis affecting skin (Acute) L02.91 - Assessment Assessment: 1. Septic shock. Improving. lactic acidosis Iproved. 2. Pneumonia. 3. H/o HTN. 4. H/o Anemia. 5. Metabolic acidosis, improved. 6. SU, ? ATN. worsening of the creatinine. 7. Small superficial leg wound at the distal end, no sign of infection. 8. CHF. 9. H/O Left TKR. no clinical sign of infection. h/o prosthesis infection, treated recently. 10. Suspect aspiration pneumonia. 11. elevated liver enzymes. 12. Leukocytosis, without bandemia, ? steroid ? Sepsis. Recommendations: Antibiotic cheek, continue zosyn. Will Add flagyl and Stool for C diff. wound care. Blood cultures. Nutritional Asmnt/Malnutr-PDOC - Dietary Evaluation Malnutrition Findings (Please click <Entered> for more info): Nutritional Asmnt/Malnutrition Start: 02/14/17 13: 04 Text: Status: Complete Freq: Document 02/14/17 13:05 HERMANN (Rec: 02/14/17 13:21 [id number]) Nutritional Asmnt/Malnutrition Patient General Information Nutritional Screening Moderate Risk Screening Pertinent Medical Hx/Surgical Hx Dx: Septic shock, hypotension, dehydration, metabolic acidosis improved, SU ?ATN, suspect aspiration PNA HTN, left knee prothesis, dyslipidemia, anemia Subjective Information 66 year old female, Liberian speaking. Pt was receiving breathing treatment during [facility] visit. Observed clear liquid tray at bedside. MD progress note 02/13: DC NG tube and start PO as tolerated. Spoke to RN STEFANIE Mayorga stated for breakfast pt tolerated 2 juices, declined broth, RN will remove mask and encourage lunch shortly. No significant wasting noted. 02/11 KUB: mild ielus. Current Diet Order/ Nutrition Support Clear liquid Pertinent Medications Vitamin C, Lipitor, Culturelle , Solu-Medrol, Zofran, Protonix, Nacl 0.45% Pertinent Labs 02/13: potassium 3L 02/14: BUN 30H, creatinine 1.8H (declining) Nutritional Hx/Data Height 1.68 m Height (Calculated Centimeters) 167.6 Current Weight (lbs) 75.75 kg Weight (Calculated Kilograms) 75.7 Weight (Calculated Grams) 25504.9 [place] Body Weight 130 Weight Status Overweight GI Symptoms Skin Integrity/Comment: Josias 14. Non-pitting edema bilateral feet. 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 Estimated Nutritional Goals Calories/Kcals/Kg IBW 130lb/59.1kg Kcals Calculated 1478-1773kcal (25-30kcal/kg) Protein Calculated 59g (1g/kg) Fluid: ml 1478-1773ml (1ml/kcal) Nutritional Problem 1. Problem Problem Impaired nutrient utilization related to Etiology renal dysfunction, per MD note SU ?ATN Signs/Symptoms: BUN 30H, creatinine 1.8H Intervention/Recommendation Comments 1. Recommend advance diet as tolerated to low sodium diet, to aid in renal function. No renal restriction due to hx of hypokalemia. Expected Outcomes/Goals Expected Outcomes/Goals 1. Pt to resume diet and meet at least 75% fo estimated nutritional needs.
[2017-02-18] MEDS: metroNIDAZOLE 500mg/NS 100mL 500 MG/100 ML BAG IV SCH (23:23)
[2017-02-19] MEDS: methylPREDNISolone SS 40 mg Vial IVP SCH ×3 (05:13→20:56)
[2017-02-19 05:47] LABS: MEAN CORPUSCULAR HGB CONC 33.5 pg (28.0-36.0)
[2017-02-19 06:07] LABS: ANION GAP 16.6 (7.0-16.0); BILIRUBIN,TOTAL 0.9 mg/dL (0.3-1.0); BUN/CREATININE RATIO 22.3; CALCIUM SERUM 8.4 mg/dL (8.6-10.3); CARBON DIOXIDE 28.8 mEq/L (21.0-31.0); CREATININE - SERUM 2.6 mg/dL (0.6-1.2); HEMOGLOBIN 12.7 gm/dL (11.7-16.1); MAGNESIUM 2.2 mg/dL (1.9-2.7); MEAN CELL VOLUME 84.8 fl (81-100); MEAN CORPUSCULAR HEMOGLOBIN 28.4 pg (27.0-31.0); MEAN PLATELET VOLUME 9.1 fl; POTASSIUM SERUM 4.4 mEq/L (3.5-5.1); RED BLOOD COUNT 4.48 Mil/cmm (3.80-5.20); RED CELL DISTRIBUTION WIDTH 17.3 % (11.5-20.0)
[2017-02-19 06:21] LABS: WHITE BLOOD COUNT 52.4 Th/cmm (4.8-10.8)
[2017-02-19 06:22] LABS: PLATELET COUNT 409 Th/cmm (150-400)
[2017-02-19] MEDS: metroNIDAZOLE 500mg/NS 100mL 500 MG/100 ML BAG IV SCH ×3 (06:25→20:55)
[2017-02-19 07:10] LABS: BAND NEUTROPHILE 1 % (0-10); NEUTROPHILS 91 % (40-80); PLATELET ESTIMATE ADEQUATE (NORMAL); TOTAL CELLS COUNTED 100
[2017-02-19] MEDS: Potassium Chloride 20 mEq ER Tab PO SCH (09:02)
[2017-02-19] MEDS: Multivitamin w/ Minerals Tab PO SCH (09:02)
[2017-02-19] MEDS: Pantoprazole 40 mg EC Tab PO SCH (09:03)
[2017-02-19] MEDS: Lactobacillus Rhamnosus 10 Billion CFU Capsule PO SCH (09:03)
[2017-02-19 09:36] LABS: HEMATOCRIT 40.3 % (35.0-45.0); HEMOGLOBIN 13.6 gm/dL (11.7-16.1); MEAN CELL VOLUME 83.9 fl (81-100); MEAN CORPUSCULAR HEMOGLOBIN 28.2 pg (27.0-31.0); MEAN CORPUSCULAR HGB CONC 33.7 pg (28.0-36.0); MEAN PLATELET VOLUME 9.4 fl; PLATELET COUNT 445 Th/cmm (150-400); RED CELL DISTRIBUTION WIDTH 17.2 % (11.5-20.0)
[2017-02-19 09:40] LABS: WHITE BLOOD COUNT 55.6 Th/cmm (4.8-10.8)
[2017-02-19 10:04] LABS: BAND NEUTROPHILE 6 % (0-10); CORRECTED WBC 52.5 Th/cmm (4.8-10.8); NEUTROPHILS 87 % (40-80); TOTAL CELLS COUNTED 100
[2017-02-19 10:05] LABS: PLATELET ESTIMATE ADEQUATE (NORMAL)
--- NOTE | 2017-02-19 13:46 | General Progress Note ---
Subjective - Review of Systems Service Date: 02/19/17 Subjective: More awake, verbal, mild tachypnea Objective - Results Result Diagrams: 02/19/17 09:00 02/19/17 05:40 Recent Labs: Laboratory Last Values WBC 55.6 Th/cmm (4.8-10.8) H* 02/19/17 09:00 Corrected WBC (auto) 52.5 Th/cmm (4.8-10.8) H* 02/19/17 09:00 RBC 4.80 Mil/cmm (3.80-5.20) 02/19/17 09:00 Hgb 13.6 gm/dL (11.7-16.1) 02/19/17 09:00 Hct 40.3 % (35.0-45.0) 02/19/17 09:00 MCV 83.9 fl (81-100) 02/19/17 09:00 MCH 28.2 pg (27.0-31.0) 02/19/17 09:00 MCHC Differential 33.7 pg (28.0-36.0) 02/19/17 09:00 RDW 17.2 % (11.5-20.0) 02/19/17 09:00 Plt Count 445 Th/cmm (150-400) H 02/19/17 09:00 MPV 9.4 fl 02/19/17 09:00 Neutrophils % 84.8 % (40.0-80.0) H 02/16/17 05:00 Band Neutrophils % 6 % (0-10) 02/19/17 09:00 Lymphocytes % 10.0 % (20.0-50.0) L 02/16/17 05:00 Monocytes % 2.7 % (2.0-10.0) 02/16/17 05:00 Eosinophils % 0.1 % (0.0-5.0) 02/16/17 05:00 Basophils % 2.4 % (0.0-2.0) H 02/16/17 05:00 Neutrophils (Manual) 87 % (40-80) H 02/19/17 09:00 Lymphocytes 3 % (20-50) L 02/19/17 09:00 Monocytes 4 % (2-10) 02/19/17 09:00 Eosinophils 1 % (0-5) 02/15/17 05:00 Basophils 1 % (0-3) 02/09/17 20:27 Nucleated RBCs 6.0 % (0-0) H 02/19/17 09:00 Platelet Estimate ADEQUATE (NORMAL) 02/19/17 09:00 Platelet Morphology PLATELET CLUMPS SEEN (NORMAL) 02/18/17 05:55 Anisocytosis 1+ 02/18/17 05:55 RBC Morph Micro Appear ABNORMAL (NORMAL) 02/18/17 05:55 Smear Path Review YES 02/19/17 09:00 Eos Smear Source URINE 02/14/17 17:40 Eos Smear Total Cells NONE SEEN (NONE SEEN) 02/14/17 17:40 PT 12.3 SECONDS (9.5-11.5) H 02/09/17 20:27 INR 1.17 (0.5-1.4) 02/09/17 20:27 PTT (Actin FS) 25.6 SECONDS (26.0-38.0) L 02/09/17 20:27 Specimen Source Arterial 02/14/17 16:00 Sample Site Right Radial 02/14/17 16:00 pH 7.40 (7.35-7.45) 02/14/17 16:00 pCO2 33.0 mmHg (35.0-45.0) L 02/14/17 16:00 pO2 103.0 mmHg (80.0-100.0) H 02/14/17 16:00 HCO3 22.1 mEq/L (20.0-26.0) 02/14/17 16:00 Base Excess -3.6 mEq/L (-3.0-3.0) L 02/14/17 16:00 O2 Saturation 98.0 % (92.0-100.0) 02/14/17 16:00 Robin Test Positive 02/14/17 16:00 Vent Rate 12 02/14/17 16:00 Inspired O2 40 02/14/17 16:00 Tidal Volume NA 02/14/17 16:00 PEEP 6 02/14/17 16:00 Pressure (ins/psv/peep) 6 02/14/17 16:00 Critical Value LZHANG 02/14/17 16:00 Sodium 138 mEq/L (136-145) 02/19/17 05:40 Potassium 4.4 mEq/L (3.5-5.1) 02/19/17 05:40 Chloride 97 mEq/L (98-107) L 02/19/17 05:40 Carbon Dioxide 28.8 mEq/L (21.0-31.0) 02/19/17 05:40 Anion Gap 16.6 (7.0-16.0) H 02/19/17 05:40 BUN 58 mg/dL (7-25) H 02/19/17 05:40 Creatinine 2.6 mg/dL (0.6-1.2) H 02/19/17 05:40 Est GFR ( Amer) 23.8 ml/min (>90) 02/19/17 05:40 Est GFR (Non-Af Amer) 19.6 ml/min 02/19/17 05:40 BUN/Creatinine Ratio 22.3 02/19/17 05:40 Glucose 101 mg/dL (70-105) 02/19/17 05:40 POC Glucose 170 MG/DL (70 - 105) H 02/12/17 09:42 Hemoglobin A1c % 5.1 % (4.0-6.0) 02/11/17 08:11 Whole Bld Lactic Acid 1.29 mmol/L (0.60-1.99) 02/16/17 05:00 Uric Acid 11.2 mg/dL (2.3-6.6) H 02/15/17 05:00 Calcium 8.4 mg/dL (8.6-10.3) L 02/19/17 05:40 Phosphorus 3.8 mg/dL (2.5-5.0) 02/15/17 05:00 Magnesium 2.2 mg/dL (1.9-2.7) 02/19/17 05:40 Total Bilirubin 0.9 mg/dL (0.3-1.0) 02/19/17 05:40 AST 167 U/L (13-39) H 02/19/17 05:40 ALT 130 U/L (7-52) H 02/19/17 05:40 Alkaline Phosphatase 411 U/L (34-104) H 02/19/17 05:40 Creatine Kinase 67 U/L (30-223) 02/12/17 04:41 CK-MB (CK-2) 1.1 ng/mL (0.6-6.3) 02/09/17 20:27 Troponin I 0.01 ng/mL (0.01-0.05) 02/09/17 20:27 B-Natriuretic Peptide 2860.0 pg/mL (5.0-100.0) H 02/19/17 05:40 Total Protein 5.8 gm/dL (6.0-8.3) L 02/19/17 05:40 Albumin 2.9 gm/dL (3.7-5.3) L 02/19/17 05:40 Globulin 2.9 gm/dL 02/19/17 05:40 Albumin/Globulin Ratio 1.0 (1.0-1.8) 02/19/17 05:40 Amylase 23 U/L (29-103) L 02/13/17 05:03 Lipase 13 U/L (11-82) 02/13/17 05:03 Urine Source ZEE PORT 02/14/17 17:40 Urine Color YELLOW 02/14/17 17:40 Urine Clarity SLIGHT HAZY (CLEAR) 02/14/17 17:40 Urine pH 5.5 02/14/17 17:40 Ur Specific [facility] 1.020 (1.005-1.030) 02/14/17 17:40 Urine Protein 100 mg/dL (NEGATIVE) H 02/14/17 17:40 Urine Glucose (UA) NEGATIVE mg/dL (NEGATIVE) 02/14/17 17:40 Urine Ketones NEGATIVE mg/dL (NEGATIVE) 02/14/17 17:40 Urine Blood MODERATE (NEGATIVE) H 02/14/17 17:40 Urine Nitrate NEGATIVE (NEGATIVE) 02/14/17 17:40 Urine Bilirubin NEGATIVE (NEGATIVE) 02/14/17 17:40 Urine Urobilinogen 0.2 E.U./dL (0.2 - 1.0) 02/14/17 17:40 Ur Leukocyte Esterase NEGATIVE (NEGATIVE) 02/14/17 17:40 Urine RBC 2-5 /hpf (0-5) 02/14/17 17:40 Urine WBC 2-5 /hpf (0-5) 02/14/17 17:40 Ur Epithelial Cells FEW /lpf (FEW) 02/14/17 17:40 Amorphous Sediment MANY URATES (NONE SEEN) 02/14/17 17:40 Urine Bacteria MODERATE /hpf (NONE SEEN) 02/14/17 17:40 Hyaline Casts 0-2 /lpf (0-2) H 02/09/17 21:05 Urine Yeast FEW /hpf (NONE SEEN) H 02/14/17 17:40 Ur Random Sodium 37 mmol/L 02/14/17 17:40 Urine Creatinine 32.9 mg/dl (Not Estab.) 02/14/17 21:55 Urine Microalbumin 332.1 ug/mL (Not Estab.) 02/14/17 21:55 Microalb/Creat Ratio 1009.4 mg/g creat (0.0-30.0) H 02/14/17 21:55 Stool Leukocyte NO WBC SEEN 02/12/17 00:05 - Physical Exam Vitals and I&O: Vital Signs Temp 97.8 F 02/19/17 12:00 Pulse 73 02/19/17 12:00 Resp 18 02/19/17 12:00 BP 104/70 02/19/17 12:00 Pulse Ox 98 02/19/17 12:00 Intake & Output 02/18/17 02/19/17 02/19/17 18:59 06:59 18:59 Intake Total 580 200 220 Output Total 1400 1650 Balance -820 200 -1430 Weight (lbs) 81.647 kg 81.329 kg 80.286 kg Intake: Intake, IV Amount 100 200 100 Piperacillin Sodium/ 100 100 Tazobact 4.5 gm In Sodium Chloride 0.9% 100 ml @ 100 mls/hr IV Q8HR [facility] Rx #:[id number] metroNIDAZOLE 500mg/NS 100 100 100mL 500 mg In 100 ml @ 100 mls/hr IV Q8HR [facility] Rx #:[id number] Oral 480 120 Output: Urine 1400 1650 Other: # Bowel Movements 1 0 Active Medications: Current Medications Acetaminophen (Tylenol) 650 mg PO Q4HR PRN PRN Reason: TEMP >100 OR PAIN Stop: 04/11/17 15:21 Acetaminophen/Codeine Phosphate (Tylenol W/Codeine #3) 1 tab PO Q6HR PRN PRN Reason: MODERATE PAIN Stop: 04/11/17 15:21 Last Admin: 02/18/17 05:19 Dose: 1 tab Acetaminophen/Hydrocodone Bitart (Tad 5mg/325mg) 2 tab PO Q4H PRN PRN Reason: Severe Pain Stop: 04/11/17 15:21 Last Admin: 02/18/17 08:48 Dose: 2 tab Albuterol Sulfate (Albuterol 2.5mg/3ml Neb Ud) 2.5 mg HHN Q4HRT PRN PRN Reason: Wheezing Stop: 04/13/17 08:21 Last Admin: 02/17/17 19:36 Dose: 2.5 mg Ascorbic Acid (Vitamin C) 500 mg PO DAILY PATRICIA Stop: 04/12/17 08:59 Last Admin: 02/19/17 09:03 Dose: 500 mg Atorvastatin Calcium (Lipitor) 10 mg PO HS PATRICIA PRN Reason: Protocol Stop: 04/11/17 20:59 Last Admin: 02/18/17 20:56 Dose: 10 mg Furosemide (Lasix) 40 mg IVP BID PATRICIA Stop: 04/19/17 16:59 Last Admin: 02/19/17 09:05 Dose: Not Given Piperacillin Sod/Tazobactam (Sod 4.5 gm/ Sodium Chloride) 100 mls @ 100 mls/hr IV Q8HR PATR[facility]IA Stop: 04/11/17 13:59 Last Admin: 02/19/17 05:12 Dose: 100 mls/hr Norepinephrine Bitartrate 8 mg (/ Dextrose) 258 mls @ 77.4 mls/hr IV TITR PRN; Protocol; 40 MCG/MIN PRN Reason: BP MAINTENANCE (PER PROTOCOL) Stop: 04/12/17 07:46 Last Titration: 02/15/17 16:30 Dose: 0 mcg/min, 0 mls/hr Diltiazem HCl 125 mg/ Dextrose 125 mls @ 10 mls/hr IV TITR PATRICIA; 10 MG/HR PRN Reason: Protocol Stop: 04/15/17 04:29 Last Titration: 02/15/17 10:18 Dose: Infused Sodium Chloride (Nacl 0.45%) 1,000 mls @ 0 mls/hr IV .Q0M PATRICIA PRN Reason: KVO Stop: 04/15/17 10:13 Last Admin: 02/14/17 11:04 Dose: 10 mls/hr Metronidazole (Flagyl) 500 mg in 100 mls @ 100 mls/hr IV Q8HR [facility] Stop: 04/19/17 21:59 Last Infusion: 02/19/17 08:00 Dose: Infused Methylprednisolone Sodium Succinate (Solu-Medrol) 20 mg IVP Q8HR [facility] Stop: 04/14/17 12:59 Last Admin: 02/19/17 05:13 Dose: 20 mg Miscellaneous (Probiotic Screen) 1 ea MC PRN PRN PRN Reason: PROTOCOL Stop: 04/12/17 09:13 Miscellaneous (Clinical Monitoring) 1 ea MC DAILY PRN PRN Reason: RENAL Stop: 04/19/17 12:28 Ondansetron HCl (Zofran) 4 mg IV Q8H PRN PRN Reason: Nausea / Vomiting Stop: 04/11/17 08:23 Last Admin: 02/16/17 09:10 Dose: 4 mg Pantoprazole Sodium (Protonix) 40 mg PO DAILY PATR[facility] Stop: 04/12/17 08:59 Last Admin: 02/19/17 09:03 Dose: 40 mg Potassium Chloride (Klor-Con) 20 meq PO DAILY [facility] Stop: 04/17/17 08:59 Last Admin: 02/19/17 09:02 Dose: 20 meq General: Alert, No acute distress, Mild distress HEENT: Atraumatic, PERRLA, EOMI, Mucous membr. moist/pink Neck: Supple, +2 carotid pulse wo bruit Cardiovascular: Regular rate, Normal S1, Normal S2 Lungs: Other (few rhonchi) Abdomen: Bowel sounds, Soft Extremities: no Edema Neurological: Sensation intact Skin: no Rash Psych/Mental Status: Mood NL Assessment/Plan - Problem List Patient Problems: All Active Problems NAUSEA AND VOMITING WITH DEHYDRATION (Acute) sepsis (Acute) Sepsis affecting skin (Acute) L02.91 - Assessment Assessment: Acute kidney injury secondary to acute tubular injury Fractional excretion of sodium is 1.1% suggestive of intrinsic renal failure Shock secondary to sepsis Distended gallbladder with normal acute cholecystitis Abdominal pain secondary to ileus Ileus secondary to sepsis Acute decompensation of systolic congestive heart failure(EJF 15-20%) Respiratory failure secondary to aspiration pneumonia/CHF Anemia of chronic kidney disease Dyslipidemia Status post Infected prosthesis left knee, status post I&D Purely anion gap metabolic acidosis with respiratory alkalosis Sepsis secondary to aspiration pneumonia Worsening liver enzymes due to sepsis, medications, hypotension - Plan Plan: Lab - Result Diagrams 02/15/17 05:00 02/15/17 05:00 Current Medications Acetaminophen (Tylenol) 650 mg PO Q4HR PRN PRN Reason: TEMP >100 OR PAIN Stop: 04/11/17 15:21 Acetaminophen/Codeine Phosphate (Tylenol W/Codeine #3) 1 tab PO Q6HR PRN PRN Reason: MODERATE PAIN Stop: 04/11/17 15:21 Last Admin: 02/14/17 02:08 Dose: 1 tab Acetaminophen/Hydrocodone Bitart (Tad 5mg/325mg) 2 tab PO Q4H PRN PRN Reason: Severe Pain Stop: 04/11/17 15:21 Last Admin: 02/15/17 00:06 Dose: 2 tab Albuterol Sulfate (Albuterol 2.5mg/3ml Neb Ud) 2.5 mg HHN Q4HRT PRN PRN Reason: Wheezing Stop: 04/13/17 08:21 Last Admin: 02/14/17 15:54 Dose: 2.5 mg Ascorbic Acid (Vitamin C) 500 mg PO DAILY [facility] Stop: 04/12/17 08:59 Last Admin: 02/15/17 09:33 Dose: 500 mg Atorvastatin Calcium (Lipitor) 10 mg PO HS [facility] PRN Reason: Protocol Stop: 04/11/17 20:59 Last Admin: 02/14/17 20:49 Dose: 10 mg Furosemide (Lasix) 40 mg IVP BID PATRIC[facility] Stop: 04/14/17 08:59 Last Admin: 02/15/17 09:33 Dose: 40 mg Piperacillin Sod/Tazobactam (Sod 4.5 gm/ Sodium Chloride) 100 mls @ 100 mls/hr IV Q8HR [facility] Stop: 04/11/17 13:59 Last Admin: 02/15/17 05:23 Dose: 100 mls/hr Norepinephrine Bitartrate 8 mg (/ Dextrose) 258 mls @ 77.4 mls/hr IV TITR PRN; Protocol; 40 MCG/MIN PRN Reason: BP MAINTENANCE (PER PROTOCOL) Stop: 04/12/17 07:46 Last Admin: 02/15/17 01:45 Dose: 5.16 mcg/min, 9.98 mls/hr Diltiazem HCl 125 mg/ Dextrose 125 mls @ 10 mls/hr IV TITR PATRICIA; 10 MG/HR PRN Reason: Protocol Stop: 04/15/17 04:29 Last Titration: 02/15/17 10:18 Dose: Infused Sodium Chloride (Nacl 0.45%) 1,000 mls @ 0 mls/hr IV .Q0M [facility] PRN Reason: KVO Stop: 04/15/17 10:13 Last Admin: 02/14/17 11:04 Dose: 10 mls/hr Lactobacillus Rhamnosus (Culturelle) 1 each PO DAILY [facility] Stop: 04/13/17 08:59 Last Admin: 02/15/17 09:33 Dose: 1 each Methylprednisolone Sodium Succinate (Solu-Medrol) 20 mg IVP Q8HR [facility] Stop: 04/14/17 12:59 Last Admin: 02/15/17 05:23 Dose: 20 mg Miscellaneous (Probiotic Screen) 1 ea MC PRN PRN PRN Reason: PROTOCOL Stop: 04/12/17 09:13 Ondansetron HCl (Zofran) 4 mg IV Q8H PRN PRN Reason: Nausea / Vomiting Stop: 04/11/17 08:23 Last Admin: 02/12/17 00:59 Dose: 4 mg Pantoprazole Sodium (Protonix) 40 mg PO DAILY [facility] Stop: 04/12/17 08:59 Last Admin: 02/15/17 09:32 Dose: 40 mg Kidney function worse with a BUN/creatinine of 58/2.6 Chest x-ray basically the same with bilateral effusions, pulmonary congestion Continue diuretics for now due to CHF, elevated BNP(2860) Off Levophed Monitor electrolytes and CBC along with chest x-ray Replace potassium and magnesium White count continues to increase now at 55, requests stool for C. difficile Liver enzymes slightly improved Discussed with family about the possibility of dialysis if chest x-ray continues to show CHF with very poor response to diuretics and worsening kidney function I had a lengthy discussion with son Alexi about the need for hemodialysis as I have explained previously in my note, he agreed Echo revealed ejection fraction 15-20% with RVSP of 24.5 Nutritional Asmnt/Malnutr-PDOC - Dietary Evaluation Malnutrition Findings (Please click <Entered> for more info): Nutritional Asmnt/Malnutrition Start: 02/14/17 13: 04 Text: Status: Complete Freq: Document 02/14/17 13:05 HERMANN (Rec: 02/14/17 13:21 [id number]) Nutritional Asmnt/Malnutrition Patient General Information Nutritional Screening Moderate Risk Screening Pertinent Medical Hx/Surgical Hx Dx: Septic shock, hypotension, dehydration, metabolic acidosis improved, SU ?ATN, suspect aspiration PNA HTN, left knee prothesis, dyslipidemia, anemia Subjective Information 66 year old female, Estonian speaking. Pt was receiving breathing treatment during [facility] visit. Observed clear liquid tray at bedside. MD progress note 02/13: DC NG tube and start PO as tolerated. Spoke to RN STEFANIE Mayorga stated for breakfast pt tolerated 2 juices, declined broth, RN will remove mask and encourage lunch shortly. No significant wasting noted. 02/11 KUB: mild ielus. Current Diet Order/ Nutrition Support Clear liquid Pertinent Medications Vitamin C, Lipitor, Culturelle , Solu-Medrol, Zofran, Protonix, Nacl 0.45% Pertinent Labs 02/13: potassium 3L 02/14: BUN 30H, creatinine 1.8H (declining) Nutritional Hx/Data Height 1.68 m Height (Calculated Centimeters) 167.6 Current Weight (lbs) 75.75 kg Weight (Calculated Kilograms) 75.7 Weight (Calculated Grams) 91748.9 [place] Body Weight 130 Weight Status Overweight GI Symptoms Skin Integrity/Comment: Josias 14. Non-pitting edema bilateral feet. 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 Estimated Nutritional Goals Calories/Kcals/Kg IBW 130lb/59.1kg Kcals Calculated 1478-1773kcal (25-30kcal/kg) Protein Calculated 59g (1g/kg) Fluid: ml 1478-1773ml (1ml/kcal) Nutritional Problem 1. Problem Problem Impaired nutrient utilization related to Etiology renal dysfunction, per MD note SU ?ATN Signs/Symptoms: BUN 30H, creatinine 1.8H Intervention/Recommendation Comments 1. Recommend advance diet as tolerated to low sodium diet, to aid in renal function. No renal restriction due to hx of hypokalemia. Expected Outcomes/Goals Expected Outcomes/Goals 1. Pt to resume diet and meet at least 75% fo estimated nutritional needs.
--- NOTE | 2017-02-19 14:47 | Consultation ---
Consult Note - Consult Note Service Date: 02/19/17 Referring Physician: Nikki Thomas Consult Note: PHYSICIAN Consultation Note: Date of Admission: 02/09/17 Purpose of Consultation: leukocytosis Chief Complaint: History of Present Illness: Patient AMANDA MALONE was [facility] to [facility] Telemetry with ABD.PAIN- DISTENDED GALL BLADDER-LEUKOCYTOSIS. wbc was normal on 02/14/17 and continues rising since then. US abd no stones in GB. ct showed distended bladder. LFTs are high as well as the BNP. Past Medical History: pneumonia, CHF Diagnoses SEPSIS, UNSPECIFIED ORGANISM (02/09/17) ANEMIA, UNSPECIFIED (02/09/17) HYPERLIPIDEMIA, UNSPECIFIED (02/09/17) DEHYDRATION (02/09/17) ACIDOSIS (02/09/17) HYPOKALEMIA (02/09/17) ESSENTIAL (PRIMARY) HYPERTENSION (02/09/17) PNEUMONITIS DUE TO INHALATION OF FOOD AND VOMIT (02/09/17) UMBILICAL HERNIA WITHOUT OBSTRUCTION OR GANGRENE (02/09/17) ILEUS, UNSPECIFIED (02/09/17) CHOLECYSTITIS, UNSPECIFIED (02/09/17) ACUTE KIDNEY FAILURE WITH TUBULAR NECROSIS (02/09/17) UNSPECIFIED ABDOMINAL PAIN (02/09/17) SEVERE SEPSIS WITH SEPTIC SHOCK (02/09/17) Allergies Allergy/AdvReac Type Severity Reaction Status Date / Time No Known Allergies Allergy Verified 02/09/17 17:43 Vital Signs Temp 97.8 F 02/19/17 12:00 Pulse 73 02/19/17 12:00 Resp 18 02/19/17 12:00 BP 104/70 02/19/17 12:00 Pulse Ox 98 02/19/17 12:00 Intake & Output 02/18/17 02/19/17 02/19/17 18:59 06:59 18:59 Intake Total 580 300 220 Output Total 1400 1650 Balance -820 300 -1430 Weight (lbs) 81.647 kg 81.329 kg 80.286 kg Intake: Intake, IV Amount 100 300 100 Piperacillin Sodium/ 100 200 Tazobact 4.5 gm In Sodium Chloride 0.9% 100 ml @ 100 mls/hr IV Q8HR [facility] Rx #:[id number] metroNIDAZOLE 500mg/NS 100 100 100mL 500 mg In 100 ml @ 100 mls/hr IV Q8HR [facility] Rx #:[id number] Oral 480 120 Output: Urine 1400 1650 Other: # Bowel Movements 1 0 Laboratory Results - last 24 hr 02/19/17 02/19/17 02/19/17 05:40 05:40 05:40 WBC 52.4 H* D Corrected WBC (auto) RBC 4.48 Hgb 12.7 Hct 38.0 D MCV 84.8 MCH 28.4 MCHC Differential 33.5 RDW 17.3 Plt Count 409 H D MPV 9.1 Band Neutrophils % 1 Neutrophils (Manual) 91 H Lymphocytes 6 L Monocytes 2 Nucleated RBCs Platelet Estimate ADEQUATE Smear Path Review Sodium 138 Potassium 4.4 Chloride 97 L Carbon Dioxide 28.8 Anion Gap 16.6 H BUN 58 H Creatinine 2.6 H Est GFR ( Amer) 23.8 Est GFR (Non-Af Amer) 19.6 BUN/Creatinine Ratio 22.3 Glucose 101 Calcium 8.4 L Magnesium 2.2 Total Bilirubin 0.9 AST 167 H ALT 130 H Alkaline Phosphatase 411 H B-Natriuretic Peptide 2860.0 H Total Protein 5.8 L Albumin 2.9 L Globulin 2.9 Albumin/Globulin Ratio 1.0 02/19/17 09:00 WBC 55.6 H* Corrected WBC (auto) 52.5 H* RBC 4.80 Hgb 13.6 Hct 40.3 MCV 83.9 MCH 28.2 MCHC Differential 33.7 RDW 17.2 Plt Count 445 H MPV 9.4 Band Neutrophils % 6 Neutrophils (Manual) 87 H Lymphocytes 3 L Monocytes 4 Nucleated RBCs 6.0 H Platelet Estimate ADEQUATE Smear Path Review YES Sodium Potassium Chloride Carbon Dioxide Anion Gap BUN Creatinine Est GFR ( Amer) Est GFR (Non-Af Amer) BUN/Creatinine Ratio Glucose Calcium Magnesium Total Bilirubin AST ALT Alkaline Phosphatase B-Natriuretic Peptide Total Protein Albumin Globulin Albumin/Globulin Ratio Home Medication Medication Instructions Recorded Type APAP/Codeine 300 mg/30 mg [Tylenol 1 tab PO Q6HR PRN 02/09/17 History w/Codeine #3] Acetaminophen [Tylenol] 650 mg PO Q4HR PRN 02/09/17 History Ascorbic Acid [Vitamin C] 500 mg PO DAILY 02/09/17 History Atorvastatin Calcium [Lipitor] 10 mg PO HS 02/09/17 History Enalapril Maleate [Vasotec] 5 mg PO Q12H 02/09/17 History Hydrochlorothiazide 25 mg PO DAILY 02/09/17 History Hydrocodone/APAP 5mg/325mg [[place] 2 tab PO Q4H PRN 02/09/17 History 5mg/325mg] Magnesium Chloride [Magnesium Dr] 128 mg PO BID 02/09/17 History Multivitamin w/ Minerals 1 tab PO DAILY 02/09/17 History [Theragran M] OLANZapine [ZyPREXA] 7.5 mg PO DAILY 02/09/17 History Ondansetron HCl [Zofran*] 4 mg PO Q6H PRN 02/09/17 History Pantoprazole [Protonix] 40 mg PO DAILY 02/09/17 History Potassium Chloride ER [Klor-Con] 20 meq PO DAILY 02/09/17 History Protein Hydrolysate,Milk [Liquid 54 ml PO DAILY 02/09/17 History Protein Fortifier] [place] 2 tab PO DAILY 02/09/17 History Sodium Bicarbonate 650 mg PO BID 02/09/17 History Current Medications Generic Name Dose Route Start Last Admin Trade Name Freq PRN Reason Stop Dose Admin Acetaminophen 650 mg 02/10/17 15:22 Tylenol PO 04/11/17 15:21 Q4HR PRN TEMP >100 OR PAIN Acetaminophen/Codeine Phosphate 1 tab 02/10/17 15:22 02/18/17 05:19 Tylenol W/Codeine #3 PO 04/11/17 15:21 1 tab Q6HR PRN Administration MODERATE PAIN Acetaminophen/Hydrocodone Bitart 2 tab 02/10/17 15:22 02/18/17 08:48 [place] 5mg/325mg PO 04/11/17 15:21 2 tab Q4H PRN Administration Severe Pain Albuterol Sulfate 2.5 mg 02/12/17 08:22 02/17/17 19:36 Albuterol 2.5mg/3ml Neb Ud HHN 04/13/17 08:21 2.5 mg Q4HRT PRN Administration Wheezing Ascorbic Acid 500 mg 02/11/17 09:00 02/19/17 09:03 Vitamin C PO 04/12/17 08:59 500 mg DAILY PTARICIA Administration Atorvastatin Calcium 10 mg 02/10/17 21:00 02/18/17 20:56 Lipitor PO 04/11/17 20:59 10 mg HS PATRICIA Administration Protocol Furosemide 40 mg 02/18/17 17:00 02/19/17 09:05 Lasix IVP 04/19/17 16:59 Not Given BID PATRICIA Heparin Sodium (Porcine) 5,000 units 02/20/17 00:00 Heparin HD 02/21/17 00:00 UD PATRICIA Piperacillin Sod/Tazobactam 100 mls @ 100 mls/hr 02/10/17 14:00 02/19/17 13: 00 Sod 4.5 gm/ Sodium Chloride IV 04/11/17 13:59 100 mls/hr Q8HR PATRICIA Administration Norepinephrine Bitartrate 8 mg 258 mls @ 77.4 mls/hr 02/11/17 07:47 02/15/17 16:30 / Dextrose IV 04/12/17 07:46 0 mcg/min TITR PRN 0 mls/hr BP MAINTENANCE (PER PROTOCOL) Titration Protocol 40 MCG/MIN Diltiazem HCl 125 mg/ Dextrose 125 mls @ 10 mls/hr 02/14/17 04:30 02/15/17 10 :18 IV 04/15/17 04:29 Infused TITR PATRICIA Titration Protocol 10 MG/HR Sodium Chloride 1,000 mls @ 0 mls/hr 02/14/17 10:14 02/14/17 11:04 Nacl 0.45% IV 04/15/17 10:13 10 mls/hr .Q0M PATRICIA Administration KVO Metronidazole 500 mg in 100 mls @ 100 mls/hr 02/18/17 22:00 02/19/17 08:00 Flagyl IV 04/19/17 21:59 Infused Q8HR PATRICIA Infusion Methylprednisolone Sodium Succinate 20 mg 02/13/17 13:00 02/19/17 13:57 Solu-Medrol IVP 04/14/17 12:59 20 mg Q8HR PATRICIA Administration Miscellaneous 1 02/11/17 09:14 Probiotic Screen 04/12/17 09:13 PRN PRN PROTOCOL Miscellaneous 1 02/18/17 12:29 Clinical Monitoring 04/19/17 12:28 DAILY PRN RENAL Ondansetron HCl 4 mg 02/10/17 08:24 02/16/17 09:10 Zofran IV 04/11/17 08:23 4 mg Q8H PRN Administration Nausea / Vomiting Pantoprazole Sodium 40 mg 02/11/17 09:00 02/19/17 09:03 Protonix PO 04/12/17 08:59 40 mg DAILY PATRICIA Administration Potassium Chloride 20 meq 02/16/17 09:00 02/19/17 09:02 Klor-Con PO 04/17/17 08:59 20 meq DAILY PATRICIA Administration Review of Systems: A 12 point ROS was reviewed with the pertinent positive and negatives noted in the HPI. Social History Smoking Status Never smoker Family Medical History Family Medical History Start: 02/10/17 00: 08 Freq: ONCE Status: Active Document 02/10/17 01:30 SYAP (Rec[facility] 02/10/17 03:14 [id number] Family Medical History Mother History Unknown Yes Physical Exam: General: awake HEENT: atraumatic Cardio: Respiratory: rhonchi Abdominal: soft mild tenderness in RUQ. Obese Genital/Urinary: Extremities: right picc Neurological: non focal Assessment: * Reactive leukocytosis * possible acalculous cholecystitis * Reactive throbocytosis * CHF Plan: CONSIDER SURGICAL EVALUATION FOR ACALCULOUS CHOLECYSTITIS Fatimah, Korina Barker [id number]
--- NOTE | 2017-02-19 15:28 | Internal Medicine Prog Note ---
Internal Medicine Objective - Results Result Diagrams: 02/19/17 09:00 02/19/17 05:40 Recent Labs: Laboratory Last Values WBC 55.6 Th/cmm (4.8-10.8) H* 02/19/17 09:00 Corrected WBC (auto) 52.5 Th/cmm (4.8-10.8) H* 02/19/17 09:00 RBC 4.80 Mil/cmm (3.80-5.20) 02/19/17 09:00 Hgb 13.6 gm/dL (11.7-16.1) 02/19/17 09:00 Hct 40.3 % (35.0-45.0) 02/19/17 09:00 MCV 83.9 fl (81-100) 02/19/17 09:00 MCH 28.2 pg (27.0-31.0) 02/19/17 09:00 MCHC Differential 33.7 pg (28.0-36.0) 02/19/17 09:00 RDW 17.2 % (11.5-20.0) 02/19/17 09:00 Plt Count 445 Th/cmm (150-400) H 02/19/17 09:00 MPV 9.4 fl 02/19/17 09:00 Neutrophils % 84.8 % (40.0-80.0) H 02/16/17 05:00 Band Neutrophils % 6 % (0-10) 02/19/17 09:00 Lymphocytes % 10.0 % (20.0-50.0) L 02/16/17 05:00 Monocytes % 2.7 % (2.0-10.0) 02/16/17 05:00 Eosinophils % 0.1 % (0.0-5.0) 02/16/17 05:00 Basophils % 2.4 % (0.0-2.0) H 02/16/17 05:00 Neutrophils (Manual) 87 % (40-80) H 02/19/17 09:00 Lymphocytes 3 % (20-50) L 02/19/17 09:00 Monocytes 4 % (2-10) 02/19/17 09:00 Eosinophils 1 % (0-5) 02/15/17 05:00 Basophils 1 % (0-3) 02/09/17 20:27 Nucleated RBCs 6.0 % (0-0) H 02/19/17 09:00 Platelet Estimate ADEQUATE (NORMAL) 02/19/17 09:00 Platelet Morphology PLATELET CLUMPS SEEN (NORMAL) 02/18/17 05:55 Anisocytosis 1+ 02/18/17 05:55 RBC Morph Micro Appear ABNORMAL (NORMAL) 02/18/17 05:55 Smear Path Review YES 02/19/17 09:00 Eos Smear Source URINE 02/14/17 17:40 Eos Smear Total Cells NONE SEEN (NONE SEEN) 02/14/17 17:40 PT 12.3 SECONDS (9.5-11.5) H 02/09/17 20:27 INR 1.17 (0.5-1.4) 02/09/17 20:27 PTT (Actin FS) 25.6 SECONDS (26.0-38.0) L 02/09/17 20:27 Specimen Source Arterial 02/14/17 16:00 Sample Site Right Radial 02/14/17 16:00 pH 7.40 (7.35-7.45) 02/14/17 16:00 pCO2 33.0 mmHg (35.0-45.0) L 02/14/17 16:00 pO2 103.0 mmHg (80.0-100.0) H 02/14/17 16:00 HCO3 22.1 mEq/L (20.0-26.0) 02/14/17 16:00 Base Excess -3.6 mEq/L (-3.0-3.0) L 02/14/17 16:00 O2 Saturation 98.0 % (92.0-100.0) 02/14/17 16:00 Robin Test Positive 02/14/17 16:00 Vent Rate 12 02/14/17 16:00 Inspired O2 40 02/14/17 16:00 Tidal Volume NA 02/14/17 16:00 PEEP 6 02/14/17 16:00 Pressure (ins/psv/peep) 6 02/14/17 16:00 Critical Value LZHANG 02/14/17 16:00 Sodium 138 mEq/L (136-145) 02/19/17 05:40 Potassium 4.4 mEq/L (3.5-5.1) 02/19/17 05:40 Chloride 97 mEq/L (98-107) L 02/19/17 05:40 Carbon Dioxide 28.8 mEq/L (21.0-31.0) 02/19/17 05:40 Anion Gap 16.6 (7.0-16.0) H 02/19/17 05:40 BUN 58 mg/dL (7-25) H 02/19/17 05:40 Creatinine 2.6 mg/dL (0.6-1.2) H 02/19/17 05:40 Est GFR ( Amer) 23.8 ml/min (>90) 02/19/17 05:40 Est GFR (Non-Af Amer) 19.6 ml/min 02/19/17 05:40 BUN/Creatinine Ratio 22.3 02/19/17 05:40 Glucose 101 mg/dL (70-105) 02/19/17 05:40 POC Glucose 170 MG/DL (70 - 105) H 02/12/17 09:42 Hemoglobin A1c % 5.1 % (4.0-6.0) 02/11/17 08:11 Whole Bld Lactic Acid 1.29 mmol/L (0.60-1.99) 02/16/17 05:00 Uric Acid 11.2 mg/dL (2.3-6.6) H 02/15/17 05:00 Calcium 8.4 mg/dL (8.6-10.3) L 02/19/17 05:40 Phosphorus 3.8 mg/dL (2.5-5.0) 02/15/17 05:00 Magnesium 2.2 mg/dL (1.9-2.7) 02/19/17 05:40 Total Bilirubin 0.9 mg/dL (0.3-1.0) 02/19/17 05:40 AST 167 U/L (13-39) H 02/19/17 05:40 ALT 130 U/L (7-52) H 02/19/17 05:40 Alkaline Phosphatase 411 U/L (34-104) H 02/19/17 05:40 Creatine Kinase 67 U/L (30-223) 02/12/17 04:41 CK-MB (CK-2) 1.1 ng/mL (0.6-6.3) 02/09/17 20:27 Troponin I 0.01 ng/mL (0.01-0.05) 02/09/17 20:27 B-Natriuretic Peptide 2860.0 pg/mL (5.0-100.0) H 02/19/17 05:40 Total Protein 5.8 gm/dL (6.0-8.3) L 02/19/17 05:40 Albumin 2.9 gm/dL (3.7-5.3) L 02/19/17 05:40 Globulin 2.9 gm/dL 02/19/17 05:40 Albumin/Globulin Ratio 1.0 (1.0-1.8) 02/19/17 05:40 Amylase 23 U/L (29-103) L 02/13/17 05:03 Lipase 13 U/L (11-82) 02/13/17 05:03 Urine Source ZEE PORT 02/14/17 17:40 Urine Color YELLOW 02/14/17 17:40 Urine Clarity SLIGHT HAZY (CLEAR) 02/14/17 17:40 Urine pH 5.5 02/14/17 17:40 Ur Specific [place] 1.020 (1.005-1.030) 02/14/17 17:40 Urine Protein 100 mg/dL (NEGATIVE) H 02/14/17 17:40 Urine Glucose (UA) NEGATIVE mg/dL (NEGATIVE) 02/14/17 17:40 Urine Ketones NEGATIVE mg/dL (NEGATIVE) 02/14/17 17:40 Urine Blood MODERATE (NEGATIVE) H 02/14/17 17:40 Urine Nitrate NEGATIVE (NEGATIVE) 02/14/17 17:40 Urine Bilirubin NEGATIVE (NEGATIVE) 02/14/17 17:40 Urine Urobilinogen 0.2 E.U./dL (0.2 - 1.0) 02/14/17 17:40 Ur Leukocyte Esterase NEGATIVE (NEGATIVE) 02/14/17 17:40 Urine RBC 2-5 /hpf (0-5) 02/14/17 17:40 Urine WBC 2-5 /hpf (0-5) 02/14/17 17:40 Ur Epithelial Cells FEW /lpf (FEW) 02/14/17 17:40 Amorphous Sediment MANY URATES (NONE SEEN) 02/14/17 17:40 Urine Bacteria MODERATE /hpf (NONE SEEN) 02/14/17 17:40 Hyaline Casts 0-2 /lpf (0-2) H 02/09/17 21:05 Urine Yeast FEW /hpf (NONE SEEN) H 02/14/17 17:40 Ur Random Sodium 37 mmol/L 02/14/17 17:40 Urine Creatinine 32.9 mg/dl (Not Estab.) 02/14/17 21:55 Urine Microalbumin 332.1 ug/mL (Not Estab.) 02/14/17 21:55 Microalb/Creat Ratio 1009.4 mg/g creat (0.0-30.0) H 02/14/17 21:55 Stool Leukocyte NO WBC SEEN 02/12/17 00:05 - Physical Exam Vitals and I&O: Vital Signs Temp 97.8 F 02/19/17 12:00 Pulse 73 02/19/17 12:00 Resp 18 02/19/17 12:00 BP 104/70 02/19/17 12:00 Pulse Ox 98 02/19/17 12:00 Intake & Output 02/18/17 02/19/17 02/19/17 18:59 06:59 18:59 Intake Total 580 300 320 Output Total 1400 1650 Balance -820 300 -1330 Weight (lbs) 81.647 kg 81.329 kg 80.286 kg Intake: Intake, IV Amount 100 300 200 Piperacillin Sodium/ 100 200 100 Tazobact 4.5 gm In Sodium Chloride 0.9% 100 ml @ 100 mls/hr IV Q8HR PATRICIA Rx #:[id number] metroNIDAZOLE 500mg/NS 100 100 100mL 500 mg In 100 ml @ 100 mls/hr IV Q8HR PATRICIA Rx #:[id number] Oral 480 120 Output: Urine 1400 1650 Other: # Bowel Movements 1 0 Active Medications: Current Medications Acetaminophen (Tylenol) 650 mg PO Q4HR PRN PRN Reason: TEMP >100 OR PAIN Stop: 04/11/17 15:21 Acetaminophen/Codeine Phosphate (Tylenol W/Codeine #3) 1 tab PO Q6HR PRN PRN Reason: MODERATE PAIN Stop: 04/11/17 15:21 Last Admin: 02/18/17 05:19 Dose: 1 tab Acetaminophen/Hydrocodone Bitart ([place] 5mg/325mg) 2 tab PO Q4H PRN PRN Reason: Severe Pain Stop: 04/11/17 15:21 Last Admin: 02/18/17 08:48 Dose: 2 tab Albuterol Sulfate (Albuterol 2.5mg/3ml Neb Ud) 2.5 mg HHN Q4HRT PRN PRN Reason: Wheezing Stop: 04/13/17 08:21 Last Admin: 02/17/17 19:36 Dose: 2.5 mg Ascorbic Acid (Vitamin C) 500 mg PO DAILY PATRICIA Stop: 04/12/17 08:59 Last Admin: 02/19/17 09:03 Dose: 500 mg Atorvastatin Calcium (Lipitor) 10 mg PO HS PATRICIA PRN Reason: Protocol Stop: 04/11/17 20:59 Last Admin: 02/18/17 20:56 Dose: 10 mg Furosemide (Lasix) 40 mg IVP BID PATRICIA Stop: 04/19/17 16:59 Last Admin: 02/19/17 09:05 Dose: Not Given Heparin Sodium (Porcine) (Heparin) 5,000 units HD UD PATRICIA Stop: 02/21/17 00:00 Piperacillin Sod/Tazobactam (Sod 4.5 gm/ Sodium Chloride) 100 mls @ 100 mls/hr IV Q8HR PATRICIA Stop: 04/11/17 13:59 Last Infusion: 02/19/17 14:00 Dose: Infused Norepinephrine Bitartrate 8 mg (/ Dextrose) 258 mls @ 77.4 mls/hr IV TITR PRN; Protocol; 40 MCG/MIN PRN Reason: BP MAINTENANCE (PER PROTOCOL) Stop: 04/12/17 07:46 Last Titration: 02/15/17 16:30 Dose: 0 mcg/min, 0 mls/hr Diltiazem HCl 125 mg/ Dextrose 125 mls @ 10 mls/hr IV TITR PATRICIA; 10 MG/HR PRN Reason: Protocol Stop: 04/15/17 04:29 Last Titration: 02/15/17 10:18 Dose: Infused Sodium Chloride (Nacl 0.45%) 1,000 mls @ 0 mls/hr IV .Q0M PATRICIA PRN Reason: KVO Stop: 04/15/17 10:13 Last Admin: 02/14/17 11:04 Dose: 10 mls/hr Metronidazole (Flagyl) 500 mg in 100 mls @ 100 mls/hr IV Q8HR PATRICIA Stop: 04/19/17 21:59 Last Admin: 02/19/17 14:56 Dose: 100 mls/hr Methylprednisolone Sodium Succinate (Solu-Medrol) 20 mg IVP Q8HR PATRICIA Stop: 04/14/17 12:59 Last Admin: 02/19/17 13:57 Dose: 20 mg Miscellaneous (Probiotic Screen) 1 ea MC PRN PRN PRN Reason: PROTOCOL Stop: 04/12/17 09:13 Miscellaneous (Clinical Monitoring) 1 ea MC DAILY PRN PRN Reason: RENAL Stop: 04/19/17 12:28 Ondansetron HCl (Zofran) 4 mg IV Q8H PRN PRN Reason: Nausea / Vomiting Stop: 04/11/17 08:23 Last Admin: 02/16/17 09:10 Dose: 4 mg Pantoprazole Sodium (Protonix) 40 mg PO DAILY PATRICIA Stop: 04/12/17 08:59 Last Admin: 02/19/17 09:03 Dose: 40 mg Potassium Chloride (Klor-Con) 20 meq PO DAILY [facility] Stop: 04/17/17 08:59 Last Admin: 02/19/17 09:02 Dose: 20 meq Internal Medicine Assmt/Plan - Assessment Assessment: Current Active Problems Problem Status Onset NAUSEA AND VOMITING WITH DEHYDRATION Acute leukocytosis distended gall bladder r/o chelocystitis trachycardia - Plan Plan: as per order sheet Nutritional Asmnt/Malnutr-PDOC - Dietary Evaluation Malnutrition Findings (Please click <Entered> for more info): Nutritional Asmnt/Malnutrition Start: 02/14/17 13: 04 Text: Status: Complete Freq: Document 02/14/17 13:05 GSUN (Rec: 02/14/17 13:21 GSUN [id number]) Nutritional Asmnt/Malnutrition Patient General Information Nutritional Screening Moderate Risk Screening Pertinent Medical Hx/Surgical Hx Dx: Septic shock, hypotension, dehydration, metabolic acidosis improved, SU ?ATN, suspect aspiration PNA HTN, left knee prothesis, dyslipidemia, anemia Subjective Information 66 year old female, [place] speaking. Pt was receiving breathing treatment during [facility] visit. Observed clear liquid tray at bedside. progress note 02/13: DC NG tube and start PO as tolerated. Spoke to STEFANIE Mayorga RN stated for breakfast pt tolerated 2 juices, declined broth, RN will remove mask and encourage lunch shortly. No significant wasting noted. 02/11 KUB: mild ielus. Current Diet Order/ Nutrition Support Clear liquid Pertinent Medications Vitamin C, Lipitor, Culturelle , Solu-Medrol, Zofran, Protonix, Nacl 0.45% Pertinent Labs 02/13: potassium 3L 02/14: BUN 30H, creatinine 1.8H (declining) Nutritional Hx/Data Height 1.68 m Height (Calculated Centimeters) 167.6 Current Weight (lbs) 75.75 kg Weight (Calculated Kilograms) 75.7 Weight (Calculated Grams) 99142.9 [place] Body Weight 130 Weight Status Overweight GI Symptoms Skin Integrity/Comment: Josias 14. Non-pitting edema bilateral feet. 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 Estimated Nutritional Goals Calories/Kcals/Kg IBW 130lb/59.1kg Kcals Calculated 1478-1773kcal (25-30kcal/kg) Protein Calculated 59g (1g/kg) Fluid: ml 1478-1773ml (1ml/kcal) Nutritional Problem 1. Problem Problem Impaired nutrient utilization related to Etiology renal dysfunction, per MD note SU ?ATN Signs/Symptoms: BUN 30H, creatinine 1.8H Intervention/Recommendation Comments 1. Recommend advance diet as tolerated to low sodium diet, to aid in renal function. No renal restriction due to hx of hypokalemia. Expected Outcomes/Goals Expected Outcomes/Goals 1. Pt to resume diet and meet at least 75% fo estimated nutritional needs.
[2017-02-19 16:22] LABS: INR 1.47 (0.5-1.4); PROTHROMBIN TIME (TEST) 15.6 SECONDS (9.5-11.5)
--- NOTE | 2017-02-19 17:07 | General Progress Note ---
Subjective - Review of Systems Service Date: 02/19/17 Events since last encounter: question of calculous cholecystitis CT no stones Ultrasound of GB not done HIDA being done high BUN and creatinine,. K normal BNP high chest xray consistent with CHF will await result of HIDA, might place [place] in AM Objective - Results Result Diagrams: 02/19/17 09:00 02/19/17 05:40 Recent Labs: Laboratory Last Values WBC 55.6 Th/cmm (4.8-10.8) H* 02/19/17 09:00 Corrected WBC (auto) 52.5 Th/cmm (4.8-10.8) H* 02/19/17 09:00 RBC 4.80 Mil/cmm (3.80-5.20) 02/19/17 09:00 Hgb 13.6 gm/dL (11.7-16.1) 02/19/17 09:00 Hct 40.3 % (35.0-45.0) 02/19/17 09:00 MCV 83.9 fl (81-100) 02/19/17 09:00 MCH 28.2 pg (27.0-31.0) 02/19/17 09:00 MCHC Differential 33.7 pg (28.0-36.0) 02/19/17 09:00 RDW 17.2 % (11.5-20.0) 02/19/17 09:00 Plt Count 445 Th/cmm (150-400) H 02/19/17 09:00 MPV 9.4 fl 02/19/17 09:00 Neutrophils % 84.8 % (40.0-80.0) H 02/16/17 05:00 Band Neutrophils % 6 % (0-10) 02/19/17 09:00 Lymphocytes % 10.0 % (20.0-50.0) L 02/16/17 05:00 Monocytes % 2.7 % (2.0-10.0) 02/16/17 05:00 Eosinophils % 0.1 % (0.0-5.0) 02/16/17 05:00 Basophils % 2.4 % (0.0-2.0) H 02/16/17 05:00 Neutrophils (Manual) 87 % (40-80) H 02/19/17 09:00 Lymphocytes 3 % (20-50) L 02/19/17 09:00 Monocytes 4 % (2-10) 02/19/17 09:00 Eosinophils 1 % (0-5) 02/15/17 05:00 Basophils 1 % (0-3) 02/09/17 20:27 Nucleated RBCs 6.0 % (0-0) H 02/19/17 09:00 Platelet Estimate ADEQUATE (NORMAL) 02/19/17 09:00 Platelet Morphology PLATELET CLUMPS SEEN (NORMAL) 02/18/17 05:55 Anisocytosis 1+ 02/18/17 05:55 RBC Morph Micro Appear ABNORMAL (NORMAL) 02/18/17 05:55 Smear Path Review YES 02/19/17 09:00 Eos Smear Source URINE 02/14/17 17:40 Eos Smear Total Cells NONE SEEN (NONE SEEN) 02/14/17 17:40 PT 15.6 SECONDS (9.5-11.5) H 02/19/17 16:04 INR 1.47 (0.5-1.4) H 02/19/17 16:04 PTT (Actin FS) 29.9 SECONDS (26.0-38.0) 02/19/17 16:04 Specimen Source Arterial 02/14/17 16:00 Sample Site Right Radial 02/14/17 16:00 pH 7.40 (7.35-7.45) 02/14/17 16:00 pCO2 33.0 mmHg (35.0-45.0) L 02/14/17 16:00 pO2 103.0 mmHg (80.0-100.0) H 02/14/17 16:00 HCO3 22.1 mEq/L (20.0-26.0) 02/14/17 16:00 Base Excess -3.6 mEq/L (-3.0-3.0) L 02/14/17 16:00 O2 Saturation 98.0 % (92.0-100.0) 02/14/17 16:00 Robin Test Positive 02/14/17 16:00 Vent Rate 12 02/14/17 16:00 Inspired O2 40 02/14/17 16:00 Tidal Volume NA 02/14/17 16:00 PEEP 6 02/14/17 16:00 Pressure (ins/psv/peep) 6 02/14/17 16:00 Critical Value LZHANG 02/14/17 16:00 Sodium 138 mEq/L (136-145) 02/19/17 05:40 Potassium 4.4 mEq/L (3.5-5.1) 02/19/17 05:40 Chloride 97 mEq/L (98-107) L 02/19/17 05:40 Carbon Dioxide 28.8 mEq/L (21.0-31.0) 02/19/17 05:40 Anion Gap 16.6 (7.0-16.0) H 02/19/17 05:40 BUN 58 mg/dL (7-25) H 02/19/17 05:40 Creatinine 2.6 mg/dL (0.6-1.2) H 02/19/17 05:40 Est GFR ( Amer) 23.8 ml/min (>90) 02/19/17 05:40 Est GFR (Non-Af Amer) 19.6 ml/min 02/19/17 05:40 BUN/Creatinine Ratio 22.3 02/19/17 05:40 Glucose 101 mg/dL (70-105) 02/19/17 05:40 POC Glucose 170 MG/DL (70 - 105) H 02/12/17 09:42 Hemoglobin A1c % 5.1 % (4.0-6.0) 02/11/17 08:11 Whole Bld Lactic Acid 1.29 mmol/L (0.60-1.99) 02/16/17 05:00 Uric Acid 11.2 mg/dL (2.3-6.6) H 02/15/17 05:00 Calcium 8.4 mg/dL (8.6-10.3) L 02/19/17 05:40 Phosphorus 3.8 mg/dL (2.5-5.0) 02/15/17 05:00 Magnesium 2.2 mg/dL (1.9-2.7) 02/19/17 05:40 Total Bilirubin 0.9 mg/dL (0.3-1.0) 02/19/17 05:40 AST 167 U/L (13-39) H 02/19/17 05:40 ALT 130 U/L (7-52) H 02/19/17 05:40 Alkaline Phosphatase 411 U/L (34-104) H 02/19/17 05:40 Creatine Kinase 67 U/L (30-223) 02/12/17 04:41 CK-MB (CK-2) 1.1 ng/mL (0.6-6.3) 02/09/17 20:27 Troponin I 0.01 ng/mL (0.01-0.05) 02/09/17 20:27 B-Natriuretic Peptide 2860.0 pg/mL (5.0-100.0) H 02/19/17 05:40 Total Protein 5.8 gm/dL (6.0-8.3) L 02/19/17 05:40 Albumin 2.9 gm/dL (3.7-5.3) L 02/19/17 05:40 Globulin 2.9 gm/dL 02/19/17 05:40 Albumin/Globulin Ratio 1.0 (1.0-1.8) 02/19/17 05:40 Amylase 23 U/L (29-103) L 02/13/17 05:03 Lipase 13 U/L (11-82) 02/13/17 05:03 Urine Source [place]EE [place] 02/14/17 17:40 Urine Color YELLOW 02/14/17 17:40 Urine Clarity SLIGHT HAZY (CLEAR) 02/14/17 17:40 Urine pH 5.5 02/14/17 17:40 Ur Specific [place] 1.020 (1.005-1.030) 02/14/17 17:40 Urine Protein 100 mg/dL (NEGATIVE) H 02/14/17 17:40 Urine Glucose (UA) NEGATIVE mg/dL (NEGATIVE) 02/14/17 17:40 Urine Ketones NEGATIVE mg/dL (NEGATIVE) 02/14/17 17:40 Urine Blood MODERATE (NEGATIVE) H 02/14/17 17:40 Urine Nitrate NEGATIVE (NEGATIVE) 02/14/17 17:40 Urine Bilirubin NEGATIVE (NEGATIVE) 02/14/17 17:40 Urine Urobilinogen 0.2 E.U./dL (0.2 - 1.0) 02/14/17 17:40 Ur Leukocyte Esterase NEGATIVE (NEGATIVE) 02/14/17 17:40 Urine RBC 2-5 /hpf (0-5) 02/14/17 17:40 Urine WBC 2-5 /hpf (0-5) 02/14/17 17:40 Ur Epithelial Cells FEW /lpf (FEW) 02/14/17 17:40 Amorphous Sediment MANY URATES (NONE SEEN) 02/14/17 17:40 Urine Bacteria MODERATE /hpf (NONE SEEN) 02/14/17 17:40 Hyaline Casts 0-2 /lpf (0-2) H 02/09/17 21:05 Urine Yeast FEW /hpf (NONE SEEN) H 02/14/17 17:40 Ur Random Sodium 37 mmol/L 02/14/17 17:40 Urine Creatinine 32.9 mg/dl (Not Estab.) 02/14/17 21:55 Urine Microalbumin 332.1 ug/mL (Not Estab.) 02/14/17 21:55 Microalb/Creat Ratio 1009.4 mg/g creat (0.0-30.0) H 02/14/17 21:55 Stool Leukocyte NO WBC SEEN 02/12/17 00:05 - Physical Exam Vitals and I&O: Vital Signs Temp 96.2 F 02/19/17 16:00 Pulse 69 02/19/17 16:00 Resp 18 02/19/17 16:00 BP 99/71 02/19/17 16:00 Pulse Ox 98 02/19/17 16:00 Intake & Output 02/18/17 02/19/17 02/19/17 18:59 06:59 18:59 Intake Total 580 300 320 Output Total 1400 1650 Balance -820 300 -1330 Weight (lbs) 81.647 kg 81.329 kg 80.286 kg Intake: Intake, IV Amount 100 300 200 Piperacillin Sodium/ 100 200 100 Tazobact 4.5 gm In Sodium Chloride 0.9% 100 ml @ 100 mls/hr IV Q8HR PATRICIA Rx #:[id number] metroNIDAZOLE 500mg/NS 100 100 100mL 500 mg In 100 ml @ 100 mls/hr IV Q8HR PATRICIA Rx #:[id number] Oral 480 120 Output: Urine 1400 1650 Other: # Bowel Movements 1 0 Active Medications: Current Medications Acetaminophen (Tylenol) 650 mg PO Q4HR PRN PRN Reason: TEMP >100 OR PAIN Stop: 04/11/17 15:21 Acetaminophen/Codeine Phosphate (Tylenol W/Codeine #3) 1 tab PO Q6HR PRN PRN Reason: MODERATE PAIN Stop: 04/11/17 15:21 Last Admin: 02/18/17 05:19 Dose: 1 tab Acetaminophen/Hydrocodone Bitart ([place] 5mg/325mg) 2 tab PO Q4H PRN PRN Reason: Severe Pain Stop: 04/11/17 15:21 Last Admin: 02/18/17 08:48 Dose: 2 tab Albuterol Sulfate (Albuterol 2.5mg/3ml Neb Ud) 2.5 mg HHN Q4HRT PRN PRN Reason: Wheezing Stop: 04/13/17 08:21 Last Admin: 02/17/17 19:36 Dose: 2.5 mg Ascorbic Acid (Vitamin C) 500 mg PO DAILY PATRICIA Stop: 04/12/17 08:59 Last Admin: 02/19/17 09:03 Dose: 500 mg Atorvastatin Calcium (Lipitor) 10 mg PO HS PATIRCIA PRN Reason: Protocol Stop: 04/11/17 20:59 Last Admin: 02/18/17 20:56 Dose: 10 mg Furosemide (Lasix) 40 mg IVP BID PATRICIA Stop: 04/19/17 16:59 Last Admin: 02/19/17 09:05 Dose: Not Given Heparin Sodium (Porcine) (Heparin) 5,000 units HD UD PATRICIA Stop: 02/21/17 00:00 Piperacillin Sod/Tazobactam (Sod 4.5 gm/ Sodium Chloride) 100 mls @ 100 mls/hr IV Q8HR PATRICIA Stop: 04/11/17 13:59 Last Infusion: 02/19/17 14:00 Dose: Infused Norepinephrine Bitartrate 8 mg (/ Dextrose) 258 mls @ 77.4 mls/hr IV TITR PRN; Protocol; 40 MCG/MIN PRN Reason: BP MAINTENANCE (PER PROTOCOL) Stop: 04/12/17 07:46 Last Titration: 02/15/17 16:30 Dose: 0 mcg/min, 0 mls/hr Diltiazem HCl 125 mg/ Dextrose 125 mls @ 10 mls/hr IV TITR PATRICIA; 10 MG/HR PRN Reason: Protocol Stop: 04/15/17 04:29 Last Titration: 02/15/17 10:18 Dose: Infused Sodium Chloride (Nacl 0.45%) 1,000 mls @ 0 mls/hr IV .Q0M PATRICIA PRN Reason: KVO Stop: 04/15/17 10:13 Last Admin: 02/14/17 11:04 Dose: 10 mls/hr Metronidazole (Flagyl) 500 mg in 100 mls @ 100 mls/hr IV Q8HR PATRICIA Stop: 04/19/17 21:59 Last Admin: 02/19/17 14:56 Dose: 100 mls/hr Methylprednisolone Sodium Succinate (Solu-Medrol) 20 mg IVP Q8HR PATRICIA Stop: 04/14/17 12:59 Last Admin: 02/19/17 13:57 Dose: 20 mg Miscellaneous (Probiotic Screen) 1 ea MC PRN PRN PRN Reason: PROTOCOL Stop: 04/12/17 09:13 Miscellaneous (Clinical Monitoring) 1 ea MC DAILY PRN PRN Reason: RENAL Stop: 04/19/17 12:28 Ondansetron HCl (Zofran) 4 mg IV Q8H PRN PRN Reason: Nausea / Vomiting Stop: 04/11/17 08:23 Last Admin: 02/16/17 09:10 Dose: 4 mg Pantoprazole Sodium (Protonix) 40 mg PO DAILY [facility] Stop: 04/12/17 08:59 Last Admin: 02/19/17 09:03 Dose: 40 mg Potassium Chloride (Klor-Con) 20 meq PO DAILY PATRICIA Stop: 04/17/17 08:59 Last Admin: 02/19/17 09:02 Dose: 20 meq General: Alert, No acute distress, Mild distress HEENT: Atraumatic, PERRLA, EOMI, Mucous membr. moist/pink Neck: Supple, +2 carotid pulse wo bruit Cardiovascular: Regular rate, Normal S1, Normal S2 Lungs: Other (few rhonchi) Abdomen: Bowel sounds, Soft Extremities: no Edema Neurological: Sensation intact Skin: no Rash Psych/Mental Status: Mood NL Assessment/Plan - Problem List Patient Problems: All Active Problems NAUSEA AND VOMITING WITH DEHYDRATION (Acute) sepsis (Acute) Sepsis affecting skin (Acute) L02.91 Nutritional Asmnt/Malnutr-PDOC - Dietary Evaluation Malnutrition Findings (Please click <Entered> for more info): Nutritional Asmnt/Malnutrition Start: 02/14/17 13: 04 Text: Status: Complete Freq: Document 02/14/17 13:05 GSUN (Rec: 02/14/17 13:21 GSCB [id number]) Nutritional Asmnt/Malnutrition Patient General Information Nutritional Screening Moderate Risk Screening Pertinent Medical Hx/Surgical Hx Dx: Septic shock, hypotension, dehydration, metabolic acidosis improved, SU ?ATN, suspect aspiration PNA HTN, left knee prothesis, dyslipidemia, anemia Subjective Information 66 year old female, Mohawk speaking. Pt was receiving breathing treatment during [facility] visit. Observed clear liquid tray at bedside. progress note 02/13: DC NG tube and start PO as tolerated. Spoke to RN STEFANIE Mayorga stated for breakfast pt tolerated 2 juices, declined broth, RN will remove mask and encourage lunch shortly. No significant wasting noted. 02/11 KUB: mild ielus. Current Diet Order/ Nutrition Support Clear liquid Pertinent Medications Vitamin C, Lipitor, Culturelle , Solu-Medrol, Zofran, Protonix, Nacl 0.45% Pertinent Labs 02/13: potassium 3L 02/14: BUN 30H, creatinine 1.8H (declining) Nutritional Hx/Data Height 1.68 m Height (Calculated Centimeters) 167.6 Current Weight (lbs) 75.75 kg Weight (Calculated Kilograms) 75.7 Weight (Calculated Grams) 99937.9 [place] Body Weight 130 Weight Status Overweight GI Symptoms Skin Integrity/Comment: Josias 14. Non-pitting edema bilateral feet. 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 Estimated Nutritional Goals Calories/Kcals/Kg IBW 130lb/59.1kg Kcals Calculated 1478-1773kcal (25-30kcal/kg) Protein Calculated 59g (1g/kg) Fluid: ml 1478-1773ml (1ml/kcal) Nutritional Problem 1. Problem Problem Impaired nutrient utilization related to Etiology renal dysfunction, per MD note SU ?ATN Signs/Symptoms: BUN 30H, creatinine 1.8H Intervention/Recommendation Comments 1. Recommend advance diet as tolerated to low sodium diet, to aid in renal function. No renal restriction due to hx of hypokalemia. Expected Outcomes/Goals Expected Outcomes/Goals 1. Pt to resume diet and meet at least 75% fo estimated nutritional needs.
[2017-02-19] MEDS: Atorvastatin Calcium 10 MG TAB PO SCH (20:56)
--- NOTE | 2017-02-19 23:57 | Infectious Disease Prog Note ---
Infectious Disease Subjective - Review of Systems Service Date: 02/19/17 Events since last encounter: No new event. Subjective: There is no new change, no fever. No more nausea and vomiting. No diarhea. Patient WBC count went up to 35K so CT of the abd and pelvis performed and it suspected cholecystitis and colitis. It has suggested B/l pneumonia. Infectious Disease Objective - Results Result Diagrams: 02/20/17 06:28 02/20/17 06:28 Recent Labs: Laboratory Last Values WBC 55.6 Th/cmm (4.8-10.8) H* 02/19/17 09:00 Corrected WBC (auto) 52.5 Th/cmm (4.8-10.8) H* 02/19/17 09:00 RBC 4.80 Mil/cmm (3.80-5.20) 02/19/17 09:00 Hgb 13.6 gm/dL (11.7-16.1) 02/19/17 09:00 Hct 40.3 % (35.0-45.0) 02/19/17 09:00 MCV 83.9 fl (81-100) 02/19/17 09:00 MCH 28.2 pg (27.0-31.0) 02/19/17 09:00 MCHC Differential 33.7 pg (28.0-36.0) 02/19/17 09:00 RDW 17.2 % (11.5-20.0) 02/19/17 09:00 Plt Count 445 Th/cmm (150-400) H 02/19/17 09:00 MPV 9.4 fl 02/19/17 09:00 Neutrophils % 84.8 % (40.0-80.0) H 02/16/17 05:00 Band Neutrophils % 6 % (0-10) 02/19/17 09:00 Lymphocytes % 10.0 % (20.0-50.0) L 02/16/17 05:00 Monocytes % 2.7 % (2.0-10.0) 02/16/17 05:00 Eosinophils % 0.1 % (0.0-5.0) 02/16/17 05:00 Basophils % 2.4 % (0.0-2.0) H 02/16/17 05:00 Neutrophils (Manual) 87 % (40-80) H 02/19/17 09:00 Lymphocytes 3 % (20-50) L 02/19/17 09:00 Monocytes 4 % (2-10) 02/19/17 09:00 Eosinophils 1 % (0-5) 02/15/17 05:00 Basophils 1 % (0-3) 02/09/17 20:27 Nucleated RBCs 6.0 % (0-0) H 02/19/17 09:00 Platelet Estimate ADEQUATE (NORMAL) 02/19/17 09:00 Platelet Morphology PLATELET CLUMPS SEEN (NORMAL) 02/18/17 05:55 Anisocytosis 1+ 02/18/17 05:55 RBC Morph Micro Appear ABNORMAL (NORMAL) 02/18/17 05:55 Smear Path Review YES 02/19/17 09:00 Eos Smear Source URINE 02/14/17 17:40 Eos Smear Total Cells NONE SEEN (NONE SEEN) 02/14/17 17:40 PT 15.6 SECONDS (9.5-11.5) H 02/19/17 16:04 INR 1.47 (0.5-1.4) H 02/19/17 16:04 PTT (Actin FS) 29.9 SECONDS (26.0-38.0) 02/19/17 16:04 Specimen Source Arterial 02/14/17 16:00 Sample Site Right Radial 02/14/17 16:00 pH 7.40 (7.35-7.45) 02/14/17 16:00 pCO2 33.0 mmHg (35.0-45.0) L 02/14/17 16:00 pO2 103.0 mmHg (80.0-100.0) H 02/14/17 16:00 HCO3 22.1 mEq/L (20.0-26.0) 02/14/17 16:00 Base Excess -3.6 mEq/L (-3.0-3.0) L 02/14/17 16:00 O2 Saturation 98.0 % (92.0-100.0) 02/14/17 16:00 Robin Test Positive 02/14/17 16:00 Vent Rate 12 02/14/17 16:00 Inspired O2 40 02/14/17 16:00 Tidal Volume NA 02/14/17 16:00 PEEP 6 02/14/17 16:00 Pressure (ins/psv/peep) 6 02/14/17 16:00 Critical Value LZHANG 02/14/17 16:00 Sodium 138 mEq/L (136-145) 02/19/17 05:40 Potassium 4.4 mEq/L (3.5-5.1) 02/19/17 05:40 Chloride 97 mEq/L (98-107) L 02/19/17 05:40 Carbon Dioxide 28.8 mEq/L (21.0-31.0) 02/19/17 05:40 Anion Gap 16.6 (7.0-16.0) H 02/19/17 05:40 BUN 58 mg/dL (7-25) H 02/19/17 05:40 Creatinine 2.6 mg/dL (0.6-1.2) H 02/19/17 05:40 Est GFR ( Amer) 23.8 ml/min (>90) 02/19/17 05:40 Est GFR (Non-Af Amer) 19.6 ml/min 02/19/17 05:40 BUN/Creatinine Ratio 22.3 02/19/17 05:40 Glucose 101 mg/dL (70-105) 02/19/17 05:40 POC Glucose 170 MG/DL (70 - 105) H 02/12/17 09:42 Hemoglobin A1c % 5.1 % (4.0-6.0) 02/11/17 08:11 Whole Bld Lactic Acid 1.29 mmol/L (0.60-1.99) 02/16/17 05:00 Uric Acid 11.2 mg/dL (2.3-6.6) H 02/15/17 05:00 Calcium 8.4 mg/dL (8.6-10.3) L 02/19/17 05:40 Phosphorus 3.8 mg/dL (2.5-5.0) 02/15/17 05:00 Magnesium 2.2 mg/dL (1.9-2.7) 02/19/17 05:40 Total Bilirubin 0.9 mg/dL (0.3-1.0) 02/19/17 05:40 AST 167 U/L (13-39) H 02/19/17 05:40 ALT 130 U/L (7-52) H 02/19/17 05:40 Alkaline Phosphatase 411 U/L (34-104) H 02/19/17 05:40 Creatine Kinase 67 U/L (30-223) 02/12/17 04:41 CK-MB (CK-2) 1.1 ng/mL (0.6-6.3) 02/09/17 20:27 Troponin I 0.01 ng/mL (0.01-0.05) 02/09/17 20:27 B-Natriuretic Peptide 2860.0 pg/mL (5.0-100.0) H 02/19/17 05:40 Total Protein 5.8 gm/dL (6.0-8.3) L 02/19/17 05:40 Albumin 2.9 gm/dL (3.7-5.3) L 02/19/17 05:40 Globulin 2.9 gm/dL 02/19/17 05:40 Albumin/Globulin Ratio 1.0 (1.0-1.8) 02/19/17 05:40 Amylase 23 U/L (29-103) L 02/13/17 05:03 Lipase 13 U/L (11-82) 02/13/17 05:03 Urine Source ZEE PORT 02/14/17 17:40 Urine Color YELLOW 02/14/17 17:40 Urine Clarity SLIGHT HAZY (CLEAR) 02/14/17 17:40 Urine pH 5.5 02/14/17 17:40 Ur Specific [place] 1.020 (1.005-1.030) 02/14/17 17:40 Urine Protein 100 mg/dL (NEGATIVE) H 02/14/17 17:40 Urine Glucose (UA) NEGATIVE mg/dL (NEGATIVE) 02/14/17 17:40 Urine Ketones NEGATIVE mg/dL (NEGATIVE) 02/14/17 17:40 Urine Blood MODERATE (NEGATIVE) H 02/14/17 17:40 Urine Nitrate NEGATIVE (NEGATIVE) 02/14/17 17:40 Urine Bilirubin NEGATIVE (NEGATIVE) 02/14/17 17:40 Urine Urobilinogen 0.2 E.U./dL (0.2 - 1.0) 02/14/17 17:40 Ur Leukocyte Esterase NEGATIVE (NEGATIVE) 02/14/17 17:40 Urine RBC 2-5 /hpf (0-5) 02/14/17 17:40 Urine WBC 2-5 /hpf (0-5) 02/14/17 17:40 Ur Epithelial Cells FEW /lpf (FEW) 02/14/17 17:40 Amorphous Sediment MANY URATES (NONE SEEN) 02/14/17 17:40 Urine Bacteria MODERATE /hpf (NONE SEEN) 02/14/17 17:40 Hyaline Casts 0-2 /lpf (0-2) H 02/09/17 21:05 Urine Yeast FEW /hpf (NONE SEEN) H 02/14/17 17:40 Ur Random Sodium 37 mmol/L 02/14/17 17:40 Urine Creatinine 32.9 mg/dl (Not Estab.) 02/14/17 21:55 Urine Microalbumin 332.1 ug/mL (Not Estab.) 02/14/17 21:55 Microalb/Creat Ratio 1009.4 mg/g creat (0.0-30.0) H 02/14/17 21:55 Stool Leukocyte NO WBC SEEN 02/12/17 00:05 - Physical Exam Vitals and I&O: Vital Signs Temp 97.2 F 02/19/17 20:00 Pulse 85 02/19/17 22:10 Resp 18 02/19/17 22:10 BP 111/70 02/19/17 20:00 Pulse Ox 94 02/19/17 22:10 Intake & Output 02/19/17 02/19/17 02/20/17 06:59 18:59 06:59 Intake Total 300 920 200 Output Total 2550 Balance 300 -1630 200 Weight (lbs) 81.329 kg 80.286 kg Intake: Intake, IV Amount 300 300 200 Piperacillin Sodium/ 200 100 100 Tazobact 4.5 gm In Sodium Chloride 0.9% 100 ml @ 100 mls/hr IV Q8HR PATRICIA Rx #:[id number] metroNIDAZOLE 500mg/NS 100 200 100 100mL 500 mg In 100 ml @ 100 mls/hr IV Q8HR PATRICIA Rx #:[id number] Oral 620 Output: Urine 2550 Other: # Bowel Movements 1 Active Medications: Current Medications Acetaminophen (Tylenol) 650 mg PO Q4HR PRN PRN Reason: TEMP >100 OR PAIN Stop: 04/11/17 15:21 Acetaminophen/Codeine Phosphate (Tylenol W/Codeine #3) 1 tab PO Q6HR PRN PRN Reason: MODERATE PAIN Stop: 04/11/17 15:21 Last Admin: 02/18/17 05:19 Dose: 1 tab Acetaminophen/Hydrocodone Bitart ([place] 5mg/325mg) 2 tab PO Q4H PRN PRN Reason: Severe Pain Stop: 04/11/17 15:21 Last Admin: 02/18/17 08:48 Dose: 2 tab Albuterol Sulfate (Albuterol 2.5mg/3ml Neb Ud) 2.5 mg HHN Q4HRT PRN PRN Reason: Wheezing Stop: 04/13/17 08:21 Last Admin: 02/17/17 19:36 Dose: 2.5 mg Ascorbic Acid (Vitamin C) 500 mg PO DAILY PATRICIA Stop: 04/12/17 08:59 Last Admin: 02/19/17 09:03 Dose: 500 mg Atorvastatin Calcium (Lipitor) 10 mg PO HS PATRICIA PRN Reason: Protocol Stop: 04/11/17 20:59 Last Admin: 02/19/17 20:56 Dose: 10 mg Furosemide (Lasix) 40 mg IVP BID PATRICIA Stop: 04/19/17 16:59 Last Admin: 02/19/17 19:04 Dose: Not Given Heparin Sodium (Porcine) (Heparin) 5,000 units HD UD PATRICIA Stop: 02/21/17 00:00 Piperacillin Sod/Tazobactam (Sod 4.5 gm/ Sodium Chloride) 100 mls @ 100 mls/hr IV Q8HR PATRICIA Stop: 04/11/17 13:59 Last Infusion: 02/19/17 22:50 Dose: Infused Norepinephrine Bitartrate 8 mg (/ Dextrose) 258 mls @ 77.4 mls/hr IV TITR PRN; Protocol; 40 MCG/MIN PRN Reason: BP MAINTENANCE (PER PROTOCOL) Stop: 04/12/17 07:46 Last Titration: 02/15/17 16:30 Dose: 0 mcg/min, 0 mls/hr Diltiazem HCl 125 mg/ Dextrose 125 mls @ 10 mls/hr IV TITR PATRICIA; 10 MG/HR PRN Reason: Protocol Stop: 04/15/17 04:29 Last Titration: 02/15/17 10:18 Dose: Infused Sodium Chloride (Nacl 0.45%) 1,000 mls @ 0 mls/hr IV .Q0M PATRICIA PRN Reason: KVO Stop: 04/15/17 10:13 Last Admin: 02/14/17 11:04 Dose: 10 mls/hr Metronidazole (Flagyl) 500 mg in 100 mls @ 100 mls/hr IV Q8HR PATRICIA Stop: 04/19/17 21:59 Last Infusion: 02/19/17 21:55 Dose: Infused Methylprednisolone Sodium Succinate (Solu-Medrol) 20 mg IVP Q8HR PATRICIA Stop: 04/14/17 12:59 Last Admin: 02/19/17 20:56 Dose: 20 mg Miscellaneous (Probiotic Screen) 1 ea PRN PRN PRN Reason: PROTOCOL Stop: 04/12/17 09:13 Miscellaneous (Clinical Monitoring) 1 ea DAILY PRN PRN Reason: RENAL Stop: 04/19/17 12:28 Ondansetron HCl (Zofran) 4 mg IV Q8H PRN PRN Reason: Nausea / Vomiting Stop: 04/11/17 08:23 Last Admin: 02/16/17 09:10 Dose: 4 mg Pantoprazole Sodium (Protonix) 40 mg PO DAILY PATRICIA Stop: 04/12/17 08:59 Last Admin: 02/19/17 09:03 Dose: 40 mg Potassium Chloride (Klor-Con) 20 meq PO DAILY PATRICIA Stop: 04/17/17 08:59 Last Admin: 02/19/17 09:02 Dose: 20 meq General: no acute distress, well developed, well nourished HEENT: atraumatic, normocephalic Neck: supple, no thyromegaly Cardiovascular: S1S2, regular Lungs: clear to auscultation bilaterally, clear to percussion Abdomen: soft, bowel sounds, no tender, no distended, no hepatomegaly, no splenomegaly, no ascites Extremities: other (left knee incision healthy.), no cyanosis, no clubbing, no edema Neurological: awake, alert, oriented Infectious Disease Assmt/Plan - Problem List Patient Problems: All Active Problems NAUSEA AND VOMITING WITH DEHYDRATION (Acute) sepsis (Acute) Sepsis affecting skin (Acute) L02.91 - Assessment Assessment: 1. Septic shock. Improving. lactic acidosis Iproved. 2. Pneumonia. 3. H/o HTN. 4. H/o Anemia. 5. Metabolic acidosis, improved. 6. SU, ? ATN. worsening of the creatinine. 7. Small superficial leg wound at the distal end, no sign of infection. 8. CHF. 9. H/O Left TKR. no clinical sign of infection. h/o prosthesis infection, treated recently. 10. Suspect aspiration pneumonia. 11. elevated liver enzymes. 12. Leukocytosis, without bandemia, ? steroid ? Sepsis. Recommendations: Antibiotic cheek, continue zosyn. Will Add flagyl and Stool for C diff. wound care. f/u Blood cultures. Nutritional Asmnt/Malnutr-PDOC - Dietary Evaluation Malnutrition Findings (Please click <Entered> for more info): Nutritional Asmnt/Malnutrition Start: 02/14/17 13: 04 Text: Status: Complete Freq: Document 02/14/17 13:05 GSUN (Rec: 02/14/17 13:21 GSUN [id number]) Nutritional Asmnt/Malnutrition Patient General Information Nutritional Screening Moderate Risk Screening Pertinent Medical Hx/Surgical Hx Dx: Septic shock, hypotension, dehydration, metabolic acidosis improved, SU ?ATN, suspect aspiration PNA HTN, left knee prothesis, dyslipidemia, anemia Subjective Information 66 year old female, Ch[place] speaking. Pt was receiving breathing treatment during critical access hospital visit. Observed clear liquid tray at bedside. MD progress note 02/13: DC NG tube and start PO as tolerated. Spoke to RN STEFANIE Mayorga stated for breakfast pt tolerated 2 juices, declined terrance, RN will remove mask and encourage lunch shortly. No significant wasting noted. 02/11 KUB: mild ielus. Current Diet Order/ Nutrition Support Clear liquid Pertinent Medications Vitamin C, Lipitor, Culturelle , Solu-Medrol, Zofran, Protonix, Nacl 0.45% Pertinent Labs 02/13: potassium 3L 02/14: BUN 30H, creatinine 1.8H (declining) Nutritional Hx/Data Height 1.68 m Height (Calculated Centimeters) 167.6 Current Weight (lbs) 75.75 kg Weight (Calculated Kilograms) 75.7 Weight (Calculated Grams) 81685.9 Brandon Body Weight 130 Weight Status Overweight GI Symptoms Skin Integrity/Comment: Josias 14. Non-pitting edema bilateral feet. 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 Estimated Nutritional Goals Calories/Kcals/Kg IBW 130lb/59.1kg Kcals Calculated 1478-1773kcal (25-30kcal/kg) Protein Calculated 59g (1g/kg) Fluid: ml 1478-1773ml (1ml/kcal) Nutritional Problem 1. Problem Problem Impaired nutrient utilization related to Etiology renal dysfunction, per MD note SU ?ATN Signs/Symptoms: BUN 30H, creatinine 1.8H Intervention/Recommendation Comments 1. Recommend advance diet as tolerated to low sodium diet, to aid in renal function. No renal restriction due to hx of hypokalemia. Expected Outcomes/Goals Expected Outcomes/Goals 1. Pt to resume diet and meet at least 75% fo estimated nutritional needs.
[2017-02-20] MEDS: methylPREDNISolone SS 40 mg Vial IVP SCH ×3 (04:30→22:11)
[2017-02-20] MEDS: metroNIDAZOLE 500mg/NS 100mL 500 MG/100 ML BAG IV SCH ×3 (04:30→22:35)
[2017-02-20 06:56] LABS: ALB/GLOB RATIO 0.9 (1.0-1.8); ANION GAP 14.8 (7.0-16.0); BILIRUBIN,TOTAL 0.8 mg/dL (0.3-1.0); BUN/CREATININE RATIO 25.7; CALCIUM SERUM 8.1 mg/dL (8.6-10.3); CARBON DIOXIDE 26.3 mEq/L (21.0-31.0); CREATININE - SERUM 2.3 mg/dL (0.6-1.2); POTASSIUM SERUM 4.1 mEq/L (3.5-5.1)
[2017-02-20 07:31] LABS: HEMATOCRIT 35.9 % (35.0-45.0); HEMOGLOBIN 12.3 gm/dL (11.7-16.1); MEAN CORPUSCULAR HEMOGLOBIN 29.2 pg (27.0-31.0); MEAN CORPUSCULAR HGB CONC 34.3 pg (28.0-36.0); MEAN PLATELET VOLUME 8.8 fl; PLATELET COUNT 372 Th/cmm (150-400); RED BLOOD COUNT 4.22 Mil/cmm (3.80-5.20); RED CELL DISTRIBUTION WIDTH 17.6 % (11.5-20.0)
[2017-02-20 07:35] LABS: WHITE BLOOD COUNT 46.1 Th/cmm (4.8-10.8)
[2017-02-20 08:14] LABS: BAND NEUTROPHILE 2 % (0-10); NEUTROPHILS 91 % (40-80); PLATELET ESTIMATE ADEQUATE (NORMAL); TOTAL CELLS COUNTED 100
[2017-02-20] MEDS: Potassium Chloride 20 mEq ER Tab PO SCH (09:43)
[2017-02-20] MEDS: Multivitamin w/ Minerals Tab PO SCH (09:43)
[2017-02-20] MEDS: Pantoprazole 40 mg EC Tab PO SCH (09:43)
--- NOTE | 2017-02-20 10:11 | Diagnostic Imaging Report ---
Portable chest x-ray HISTORY: Shortness of breath Compared to prior exam of February 18, 2017, heart remains enlarged. There remains opacification of the left lower hemithorax that may be related to pleural fluid. Underlying consolidation and/or atelectasis cannot be excluded. IMPRESSION: 1. No change in the cardiopulmonary status since February 18, 2017.
--- NOTE | 2017-02-20 12:48 | General Progress Note ---
Subjective - Review of Systems Service Date: 02/20/17 Events since last encounter: await result of HIDA patient not able to sign own consent called son by phone but hung up after answering me. called again multiple times , did not answer Objective - Results Result Diagrams: 02/20/17 06:28 02/20/17 06:28 Recent Labs: Laboratory Last Values WBC 46.1 Th/cmm (4.8-10.8) H* 02/20/17 06:28 Corrected WBC (auto) 52.5 Th/cmm (4.8-10.8) H* 02/19/17 09:00 RBC 4.22 Mil/cmm (3.80-5.20) 02/20/17 06:28 Hgb 12.3 gm/dL (11.7-16.1) 02/20/17 06:28 Hct 35.9 % (35.0-45.0) D 02/20/17 06:28 MCV 85.0 fl (81-100) 02/20/17 06:28 MCH 29.2 pg (27.0-31.0) 02/20/17 06:28 MCHC Differential 34.3 pg (28.0-36.0) 02/20/17 06:28 RDW 17.6 % (11.5-20.0) 02/20/17 06:28 Plt Count 372 Th/cmm (150-400) 02/20/17 06:28 MPV 8.8 fl 02/20/17 06:28 Neutrophils % 84.8 % (40.0-80.0) H 02/16/17 05:00 Band Neutrophils % 2 % (0-10) 02/20/17 06:28 Lymphocytes % 10.0 % (20.0-50.0) L 02/16/17 05:00 Monocytes % 2.7 % (2.0-10.0) 02/16/17 05:00 Eosinophils % 0.1 % (0.0-5.0) 02/16/17 05:00 Basophils % 2.4 % (0.0-2.0) H 02/16/17 05:00 Neutrophils (Manual) 91 % (40-80) H 02/20/17 06:28 Lymphocytes 7 % (20-50) L 02/20/17 06:28 Monocytes 4 % (2-10) 02/19/17 09:00 Eosinophils 1 % (0-5) 02/15/17 05:00 Basophils 1 % (0-3) 02/09/17 20:27 Nucleated RBCs 6.0 % (0-0) H 02/19/17 09:00 Platelet Estimate ADEQUATE (NORMAL) 02/20/17 06:28 Platelet Morphology PLATELET CLUMPS SEEN (NORMAL) 02/18/17 05:55 Anisocytosis 1+ 02/18/17 05:55 RBC Morph Micro Appear ABNORMAL (NORMAL) 02/18/17 05:55 Smear Path Review YES 02/19/17 09:00 Eos Smear Source URINE 02/14/17 17:40 Eos Smear Total Cells NONE SEEN (NONE SEEN) 02/14/17 17:40 PT 15.6 SECONDS (9.5-11.5) H 02/19/17 16:04 INR 1.47 (0.5-1.4) H 02/19/17 16:04 PTT (Actin FS) 29.9 SECONDS (26.0-38.0) 02/19/17 16:04 Specimen Source Arterial 02/14/17 16:00 Sample Site Right Radial 02/14/17 16:00 pH 7.40 (7.35-7.45) 02/14/17 16:00 pCO2 33.0 mmHg (35.0-45.0) L 02/14/17 16:00 pO2 103.0 mmHg (80.0-100.0) H 02/14/17 16:00 HCO3 22.1 mEq/L (20.0-26.0) 02/14/17 16:00 Base Excess -3.6 mEq/L (-3.0-3.0) L 02/14/17 16:00 O2 Saturation 98.0 % (92.0-100.0) 02/14/17 16:00 Robin Test Positive 02/14/17 16:00 Vent Rate 12 02/14/17 16:00 Inspired O2 40 02/14/17 16:00 Tidal Volume NA 02/14/17 16:00 PEEP 6 02/14/17 16:00 Pressure (ins/psv/peep) 6 02/14/17 16:00 Critical Value LZHANG 02/14/17 16:00 Sodium 135 mEq/L (136-145) L 02/20/17 06:28 Potassium 4.1 mEq/L (3.5-5.1) 02/20/17 06:28 Chloride 98 mEq/L (98-107) 02/20/17 06:28 Carbon Dioxide 26.3 mEq/L (21.0-31.0) 02/20/17 06:28 Anion Gap 14.8 (7.0-16.0) 02/20/17 06:28 BUN 59 mg/dL (7-25) H 02/20/17 06:28 Creatinine 2.3 mg/dL (0.6-1.2) H 02/20/17 06:28 Est GFR ( Amer) 27.4 ml/min (>90) 02/20/17 06:28 Est GFR (Non-Af Amer) 22.6 ml/min 02/20/17 06:28 BUN/Creatinine Ratio 25.7 02/20/17 06:28 Glucose 98 mg/dL (70-105) 02/20/17 06:28 POC Glucose 170 MG/DL (70 - 105) H 02/12/17 09:42 Hemoglobin A1c % 5.1 % (4.0-6.0) 02/11/17 08:11 Whole Bld Lactic Acid 1.29 mmol/L (0.60-1.99) 02/16/17 05:00 Uric Acid 11.2 mg/dL (2.3-6.6) H 02/15/17 05:00 Calcium 8.1 mg/dL (8.6-10.3) L 02/20/17 06:28 Phosphorus 3.8 mg/dL (2.5-5.0) 02/15/17 05:00 Magnesium 2.2 mg/dL (1.9-2.7) 02/19/17 05:40 Total Bilirubin 0.8 mg/dL (0.3-1.0) 02/20/17 06:28 AST 103 U/L (13-39) H 02/20/17 06:28 ALT 100 U/L (7-52) H 02/20/17 06:28 Alkaline Phosphatase 349 U/L (34-104) H 02/20/17 06:28 Creatine Kinase 67 U/L (30-223) 02/12/17 04:41 CK-MB (CK-2) 1.1 ng/mL (0.6-6.3) 02/09/17 20:27 Troponin I 0.01 ng/mL (0.01-0.05) 02/09/17 20:27 B-Natriuretic Peptide 2860.0 pg/mL (5.0-100.0) H 02/19/17 05:40 Total Protein 5.5 gm/dL (6.0-8.3) L 02/20/17 06:28 Albumin 2.6 gm/dL (3.7-5.3) L 02/20/17 06:28 Globulin 2.9 gm/dL 02/20/17 06:28 Albumin/Globulin Ratio 0.9 (1.0-1.8) L 02/20/17 06:28 Amylase 23 U/L (29-103) L 02/13/17 05:03 Lipase 13 U/L (11-82) 02/13/17 05:03 Urine Source ZEE PORT 02/14/17 17:40 Urine Color YELLOW 02/14/17 17:40 Urine Clarity SLIGHT HAZY (CLEAR) 02/14/17 17:40 Urine pH 5.5 02/14/17 17:40 Ur Specific [place] 1.020 (1.005-1.030) 02/14/17 17:40 Urine Protein 100 mg/dL (NEGATIVE) H 02/14/17 17:40 Urine Glucose (UA) NEGATIVE mg/dL (NEGATIVE) 02/14/17 17:40 Urine Ketones NEGATIVE mg/dL (NEGATIVE) 02/14/17 17:40 Urine Blood MODERATE (NEGATIVE) H 02/14/17 17:40 Urine Nitrate NEGATIVE (NEGATIVE) 02/14/17 17:40 Urine Bilirubin NEGATIVE (NEGATIVE) 02/14/17 17:40 Urine Urobilinogen 0.2 E.U./dL (0.2 - 1.0) 02/14/17 17:40 Ur Leukocyte Esterase NEGATIVE (NEGATIVE) 02/14/17 17:40 Urine RBC 2-5 /hpf (0-5) 02/14/17 17:40 Urine WBC 2-5 /hpf (0-5) 02/14/17 17:40 Ur Epithelial Cells FEW /lpf (FEW) 02/14/17 17:40 Amorphous Sediment MANY URATES (NONE SEEN) 02/14/17 17:40 Urine Bacteria MODERATE /hpf (NONE SEEN) 02/14/17 17:40 Hyaline Casts 0-2 /lpf (0-2) H 02/09/17 21:05 Urine Yeast FEW /hpf (NONE SEEN) H 02/14/17 17:40 Ur Random Sodium 37 mmol/L 02/14/17 17:40 Urine Creatinine 32.9 mg/dl (Not Estab.) 02/14/17 21:55 Urine Microalbumin 332.1 ug/mL (Not Estab.) 02/14/17 21:55 Microalb/Creat Ratio 1009.4 mg/g creat (0.0-30.0) H 02/14/17 21:55 Stool Leukocyte NO WBC SEEN 02/12/17 00:05 - Physical Exam Vitals and I&O: Vital Signs Temp 97.4 F 02/20/17 08:00 Pulse 83 02/20/17 08:03 Resp 20 02/20/17 08:05 BP 121/67 02/20/17 09:44 Pulse Ox 95 02/20/17 08:03 Intake & Output 02/19/17 02/20/17 02/20/17 18:59 06:59 18:59 Intake Total 920 460 Output Total 2550 600 Balance -1630 -140 Weight (lbs) 80.286 kg 80.286 kg Intake: Intake, IV Amount 300 400 Piperacillin Sodium/ 100 200 Tazobact 4.5 gm In Sodium Chloride 0.9% 100 ml @ 100 mls/hr IV Q8HR PATRICIA Rx #:[id number] metroNIDAZOLE 500mg/NS 200 200 100mL 500 mg In 100 ml @ 100 mls/hr IV Q8HR PATRICIA Rx #:[id number] Oral 620 60 Output: Urine 2550 600 Other: # Bowel Movements 1 Active Medications: Current Medications Acetaminophen (Tylenol) 650 mg PO Q4HR PRN PRN Reason: TEMP >100 OR PAIN Stop: 04/11/17 15:21 Acetaminophen/Codeine Phosphate (Tylenol W/Codeine #3) 1 tab PO Q6HR PRN PRN Reason: MODERATE PAIN Stop: 04/11/17 15:21 Last Admin: 02/18/17 05:19 Dose: 1 tab Acetaminophen/Hydrocodone Bitart ([place] 5mg/325mg) 2 tab PO Q4H PRN PRN Reason: Severe Pain Stop: 04/11/17 15:21 Last Admin: 02/18/17 08:48 Dose: 2 tab Albuterol Sulfate (Albuterol 2.5mg/3ml Neb Ud) 2.5 mg HHN Q4HRT PRN PRN Reason: Wheezing Stop: 04/13/17 08:21 Last Admin: 02/17/17 19:36 Dose: 2.5 mg Ascorbic Acid (Vitamin C) 500 mg PO DAILY PATRICIA Stop: 04/12/17 08:59 Last Admin: 02/20/17 09:43 Dose: 500 mg Atorvastatin Calcium (Lipitor) 10 mg PO HS PATRICIA PRN Reason: Protocol Stop: 04/11/17 20:59 Last Admin: 02/19/17 20:56 Dose: 10 mg Furosemide (Lasix) 40 mg IVP BID PATRICIA Stop: 04/19/17 16:59 Last Admin: 02/20/17 09:44 Dose: 40 mg Heparin Sodium (Porcine) (Heparin) 5,000 units HD UD PATRICIA Stop: 02/21/17 00:00 Last Admin: 02/20/17 09:44 Dose: Not Given Piperacillin Sod/Tazobactam (Sod 4.5 gm/ Sodium Chloride) 100 mls @ 100 mls/hr IV Q8HR PATRICIA Stop: 04/11/17 13:59 Last Infusion: 02/20/17 06:36 Dose: Infused Norepinephrine Bitartrate 8 mg (/ Dextrose) 258 mls @ 77.4 mls/hr IV TITR PRN; Protocol; 40 MCG/MIN PRN Reason: BP MAINTENANCE (PER PROTOCOL) Stop: 04/12/17 07:46 Last Titration: 02/15/17 16:30 Dose: 0 mcg/min, 0 mls/hr Diltiazem HCl 125 mg/ Dextrose 125 mls @ 10 mls/hr IV TITR PATRICIA; 10 MG/HR PRN Reason: Protocol Stop: 04/15/17 04:29 Last Titration: 02/15/17 10:18 Dose: Infused Sodium Chloride (Nacl 0.45%) 1,000 mls @ 0 mls/hr IV .Q0M PATRICIA PRN Reason: KVO Stop: 04/15/17 10:13 Last Admin: 02/14/17 11:04 Dose: 10 mls/hr Metronidazole (Flagyl) 500 mg in 100 mls @ 100 mls/hr IV Q8HR PATRICIA Stop: 04/19/17 21:59 Last Infusion: 02/20/17 05:30 Dose: Infused Methylprednisolone Sodium Succinate (Solu-Medrol) 20 mg IVP Q8HR PATRICIA Stop: 04/14/17 12:59 Last Admin: 02/20/17 04:30 Dose: 20 mg Miscellaneous (Probiotic Screen) 1 ea PRN PRN PRN Reason: PROTOCOL Stop: 04/12/17 09:13 Miscellaneous (Clinical Monitoring) 1 ea DAILY PRN PRN Reason: RENAL Stop: 04/19/17 12:28 Ondansetron HCl (Zofran) 4 mg IV Q8H PRN PRN Reason: Nausea / Vomiting Stop: 04/11/17 08:23 Last Admin: 02/16/17 09:10 Dose: 4 mg Pantoprazole Sodium (Protonix) 40 mg PO DAILY PATRICIA Stop: 04/12/17 08:59 Last Admin: 02/20/17 09:43 Dose: 40 mg Potassium Chloride (Klor-Con) 20 meq PO DAILY PATRICIA Stop: 04/17/17 08:59 Last Admin: 02/20/17 09:43 Dose: 20 meq General: Alert, No acute distress, Mild distress HEENT: Atraumatic, PERRLA, EOMI, Mucous membr. moist/pink Neck: Supple, +2 carotid pulse wo bruit Cardiovascular: Regular rate, Normal S1, Normal S2 Lungs: Other (few rhonchi) Abdomen: Bowel sounds, Soft Extremities: no Edema Neurological: Sensation intact Skin: no Rash Psych/Mental Status: Mood NL Assessment/Plan - Problem List Patient Problems: All Active Problems NAUSEA AND VOMITING WITH DEHYDRATION (Acute) sepsis (Acute) Sepsis affecting skin (Acute) L02.91 Nutritional Asmnt/Malnutr-PDOC - Dietary Evaluation Malnutrition Findings (Please click <Entered> for more info): Nutritional Asmnt/Malnutrition Start: 02/14/17 13: 04 Text: Status: Complete Freq: Document 02/14/17 13:05 GSUN (Rec: 02/14/17 13:21 GSUN [id number]) Nutritional Asmnt/Malnutrition Patient General Information Nutritional Screening Moderate Risk Screening Pertinent Medical Hx/Surgical Hx Dx: Septic shock, hypotension, dehydration, metabolic acidosis improved, SU ?ATN, suspect aspiration PNA HTN, left knee prothesis, dyslipidemia, anemia Subjective Information 66 year old female, Moh[place] speaking. Pt was receiving breathing treatment during [facility] visit. Observed clear liquid tray at bedside. MD progress note 02/13: DC NG tube and start PO as tolerated. Spoke to RN STEFANIE Mayorga stated for breakfast pt tolerated 2 juices, declined broth, RN will remove mask and encourage lunch shortly. No significant wasting noted. 02/11 KUB: mild ielus. Current Diet Order/ Nutrition Support Clear liquid Pertinent Medications Vitamin C, Lipitor, Culturelle , Solu-Medrol, Zofran, Protonix, Nacl 0.45% Pertinent Labs 02/13: potassium 3L 02/14: BUN 30H, creatinine 1.8H (declining) Nutritional Hx/Data Height 1.68 m Height (Calculated Centimeters) 167.6 Current Weight (lbs) 75.75 kg Weight (Calculated Kilograms) 75.7 Weight (Calculated Grams) 07281.9 [place] Body Weight 130 Weight Status Overweight GI Symptoms Skin Integrity/Comment: Josias 14. Non-pitting edema bilateral feet. 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 Estimated Nutritional Goals Calories/Kcals/Kg IBW 130lb/59.1kg Kcals Calculated 1478-1773kcal (25-30kcal/kg) Protein Calculated 59g (1g/kg) Fluid: ml 1478-1773ml (1ml/kcal) Nutritional Problem 1. Problem Problem Impaired nutrient utilization related to Etiology renal dysfunction, per MD note SU ?ATN Signs/Symptoms: BUN 30H, creatinine 1.8H Intervention/Recommendation Comments 1. Recommend advance diet as tolerated to low sodium diet, to aid in renal function. No renal restriction due to hx of hypokalemia. Expected Outcomes/Goals Expected Outcomes/Goals 1. Pt to resume diet and meet at least 75% fo estimated nutritional needs.
--- NOTE | 2017-02-20 13:11 | General Progress Note ---
Subjective - Review of Systems Service Date: 02/20/17 Events since last encounter: discussed possible complications of Jairo catheter insertion with daughter and son. consent given via phone accepting risks and complications Objective - Results Result Diagrams: 02/20/17 06:28 02/20/17 06:28 Recent Labs: Laboratory Last Values WBC 46.1 Th/cmm (4.8-10.8) H* 02/20/17 06:28 Corrected WBC (auto) 52.5 Th/cmm (4.8-10.8) H* 02/19/17 09:00 RBC 4.22 Mil/cmm (3.80-5.20) 02/20/17 06:28 Hgb 12.3 gm/dL (11.7-16.1) 02/20/17 06:28 Hct 35.9 % (35.0-45.0) D 02/20/17 06:28 MCV 85.0 fl (81-100) 02/20/17 06:28 MCH 29.2 pg (27.0-31.0) 02/20/17 06:28 MCHC Differential 34.3 pg (28.0-36.0) 02/20/17 06:28 RDW 17.6 % (11.5-20.0) 02/20/17 06:28 Plt Count 372 Th/cmm (150-400) 02/20/17 06:28 MPV 8.8 fl 02/20/17 06:28 Neutrophils % 84.8 % (40.0-80.0) H 02/16/17 05:00 Band Neutrophils % 2 % (0-10) 02/20/17 06:28 Lymphocytes % 10.0 % (20.0-50.0) L 02/16/17 05:00 Monocytes % 2.7 % (2.0-10.0) 02/16/17 05:00 Eosinophils % 0.1 % (0.0-5.0) 02/16/17 05:00 Basophils % 2.4 % (0.0-2.0) H 02/16/17 05:00 Neutrophils (Manual) 91 % (40-80) H 02/20/17 06:28 Lymphocytes 7 % (20-50) L 02/20/17 06:28 Monocytes 4 % (2-10) 02/19/17 09:00 Eosinophils 1 % (0-5) 02/15/17 05:00 Basophils 1 % (0-3) 02/09/17 20:27 Nucleated RBCs 6.0 % (0-0) H 02/19/17 09:00 Platelet Estimate ADEQUATE (NORMAL) 02/20/17 06:28 Platelet Morphology PLATELET CLUMPS SEEN (NORMAL) 02/18/17 05:55 Anisocytosis 1+ 02/18/17 05:55 RBC Morph Micro Appear ABNORMAL (NORMAL) 02/18/17 05:55 Smear Path Review YES 02/19/17 09:00 Eos Smear Source URINE 02/14/17 17:40 Eos Smear Total Cells NONE SEEN (NONE SEEN) 02/14/17 17:40 PT 15.6 SECONDS (9.5-11.5) H 02/19/17 16:04 INR 1.47 (0.5-1.4) H 02/19/17 16:04 PTT (Actin FS) 29.9 SECONDS (26.0-38.0) 02/19/17 16:04 Specimen Source Arterial 02/14/17 16:00 Sample Site Right Radial 02/14/17 16:00 pH 7.40 (7.35-7.45) 02/14/17 16:00 pCO2 33.0 mmHg (35.0-45.0) L 02/14/17 16:00 pO2 103.0 mmHg (80.0-100.0) H 02/14/17 16:00 HCO3 22.1 mEq/L (20.0-26.0) 02/14/17 16:00 Base Excess -3.6 mEq/L (-3.0-3.0) L 02/14/17 16:00 O2 Saturation 98.0 % (92.0-100.0) 02/14/17 16:00 Robin Test Positive 02/14/17 16:00 Vent Rate 12 02/14/17 16:00 Inspired O2 40 02/14/17 16:00 Tidal Volume NA 02/14/17 16:00 PEEP 6 02/14/17 16:00 Pressure (ins/psv/peep) 6 02/14/17 16:00 Critical Value LZHANG 02/14/17 16:00 Sodium 135 mEq/L (136-145) L 02/20/17 06:28 Potassium 4.1 mEq/L (3.5-5.1) 02/20/17 06:28 Chloride 98 mEq/L (98-107) 02/20/17 06:28 Carbon Dioxide 26.3 mEq/L (21.0-31.0) 02/20/17 06:28 Anion Gap 14.8 (7.0-16.0) 02/20/17 06:28 BUN 59 mg/dL (7-25) H 02/20/17 06:28 Creatinine 2.3 mg/dL (0.6-1.2) H 02/20/17 06:28 Est GFR ( Amer) 27.4 ml/min (>90) 02/20/17 06:28 Est GFR (Non-Af Amer) 22.6 ml/min 02/20/17 06:28 BUN/Creatinine Ratio 25.7 02/20/17 06:28 Glucose 98 mg/dL (70-105) 02/20/17 06:28 POC Glucose 170 MG/DL (70 - 105) H 02/12/17 09:42 Hemoglobin A1c % 5.1 % (4.0-6.0) 02/11/17 08:11 Whole Bld Lactic Acid 1.29 mmol/L (0.60-1.99) 02/16/17 05:00 Uric Acid 11.2 mg/dL (2.3-6.6) H 02/15/17 05:00 Calcium 8.1 mg/dL (8.6-10.3) L 02/20/17 06:28 Phosphorus 3.8 mg/dL (2.5-5.0) 02/15/17 05:00 Magnesium 2.2 mg/dL (1.9-2.7) 02/19/17 05:40 Total Bilirubin 0.8 mg/dL (0.3-1.0) 02/20/17 06:28 AST 103 U/L (13-39) H 02/20/17 06:28 ALT 100 U/L (7-52) H 02/20/17 06:28 Alkaline Phosphatase 349 U/L (34-104) H 02/20/17 06:28 Creatine Kinase 67 U/L (30-223) 02/12/17 04:41 CK-MB (CK-2) 1.1 ng/mL (0.6-6.3) 02/09/17 20:27 Troponin I 0.01 ng/mL (0.01-0.05) 02/09/17 20:27 B-Natriuretic Peptide 2860.0 pg/mL (5.0-100.0) H 02/19/17 05:40 Total Protein 5.5 gm/dL (6.0-8.3) L 02/20/17 06:28 Albumin 2.6 gm/dL (3.7-5.3) L 02/20/17 06:28 Globulin 2.9 gm/dL 02/20/17 06:28 Albumin/Globulin Ratio 0.9 (1.0-1.8) L 02/20/17 06:28 Amylase 23 U/L (29-103) L 02/13/17 05:03 Lipase 13 U/L (11-82) 02/13/17 05:03 Urine Source ZEE PORT 02/14/17 17:40 Urine Color YELLOW 02/14/17 17:40 Urine Clarity SLIGHT HAZY (CLEAR) 02/14/17 17:40 Urine pH 5.5 02/14/17 17:40 Ur Specific [place] 1.020 (1.005-1.030) 02/14/17 17:40 Urine Protein 100 mg/dL (NEGATIVE) H 02/14/17 17:40 Urine Glucose (UA) NEGATIVE mg/dL (NEGATIVE) 02/14/17 17:40 Urine Ketones NEGATIVE mg/dL (NEGATIVE) 02/14/17 17:40 Urine Blood MODERATE (NEGATIVE) H 02/14/17 17:40 Urine Nitrate NEGATIVE (NEGATIVE) 02/14/17 17:40 Urine Bilirubin NEGATIVE (NEGATIVE) 02/14/17 17:40 Urine Urobilinogen 0.2 E.U./dL (0.2 - 1.0) 02/14/17 17:40 Ur Leukocyte Esterase NEGATIVE (NEGATIVE) 02/14/17 17:40 Urine RBC 2-5 /hpf (0-5) 02/14/17 17:40 Urine WBC 2-5 /hpf (0-5) 02/14/17 17:40 Ur Epithelial Cells FEW /lpf (FEW) 02/14/17 17:40 Amorphous Sediment MANY URATES (NONE SEEN) 02/14/17 17:40 Urine Bacteria MODERATE /hpf (NONE SEEN) 02/14/17 17:40 Hyaline Casts 0-2 /lpf (0-2) H 02/09/17 21:05 Urine Yeast FEW /hpf (NONE SEEN) H 02/14/17 17:40 Ur Random Sodium 37 mmol/L 02/14/17 17:40 Urine Creatinine 32.9 mg/dl (Not Estab.) 02/14/17 21:55 Urine Microalbumin 332.1 ug/mL (Not Estab.) 02/14/17 21:55 Microalb/Creat Ratio 1009.4 mg/g creat (0.0-30.0) H 02/14/17 21:55 Stool Leukocyte NO WBC SEEN 02/12/17 00:05 - Physical Exam Vitals and I&O: Vital Signs Temp 97.4 F 02/20/17 08:00 Pulse 83 02/20/17 08:03 Resp 20 02/20/17 08:05 BP 121/67 02/20/17 09:44 Pulse Ox 95 02/20/17 08:03 Intake & Output 02/19/17 02/20/17 02/20/17 18:59 06:59 18:59 Intake Total 920 460 Output Total 2550 600 Balance -1630 -140 Weight (lbs) 80.286 kg 80.286 kg Intake: Intake, IV Amount 300 400 Piperacillin Sodium/ 100 200 Tazobact 4.5 gm In Sodium Chloride 0.9% 100 ml @ 100 mls/hr IV Q8HR PATRICIA Rx #:[id number] metroNIDAZOLE 500mg/NS 200 200 100mL 500 mg In 100 ml @ 100 mls/hr IV Q8HR PATRICIA Rx #:[id number] Oral 620 60 Output: Urine 2550 600 Other: # Bowel Movements 1 Active Medications: Current Medications Acetaminophen (Tylenol) 650 mg PO Q4HR PRN PRN Reason: TEMP >100 OR PAIN Stop: 04/11/17 15:21 Acetaminophen/Codeine Phosphate (Tylenol W/Codeine #3) 1 tab PO Q6HR PRN PRN Reason: MODERATE PAIN Stop: 04/11/17 15:21 Last Admin: 02/18/17 05:19 Dose: 1 tab Acetaminophen/Hydrocodone Bitart ([place] 5mg/325mg) 2 tab PO Q4H PRN PRN Reason: Severe Pain Stop: 04/11/17 15:21 Last Admin: 02/18/17 08:48 Dose: 2 tab Albuterol Sulfate (Albuterol 2.5mg/3ml Neb Ud) 2.5 mg HHN Q4HRT PRN PRN Reason: Wheezing Stop: 04/13/17 08:21 Last Admin: 02/17/17 19:36 Dose: 2.5 mg Ascorbic Acid (Vitamin C) 500 mg PO DAILY PATRICIA Stop: 04/12/17 08:59 Last Admin: 02/20/17 09:43 Dose: 500 mg Atorvastatin Calcium (Lipitor) 10 mg PO HS PATRICIA PRN Reason: Protocol Stop: 04/11/17 20:59 Last Admin: 02/19/17 20:56 Dose: 10 mg Furosemide (Lasix) 40 mg IVP BID PATRICIA Stop: 04/19/17 16:59 Last Admin: 02/20/17 09:44 Dose: 40 mg Heparin Sodium (Porcine) (Heparin) 5,000 units HD UD PATRICIA Stop: 02/21/17 00:00 Last Admin: 02/20/17 09:44 Dose: Not Given Piperacillin Sod/Tazobactam (Sod 4.5 gm/ Sodium Chloride) 100 mls @ 100 mls/hr IV Q8HR PATRICIA Stop: 04/11/17 13:59 Last Infusion: 02/20/17 06:36 Dose: Infused Norepinephrine Bitartrate 8 mg (/ Dextrose) 258 mls @ 77.4 mls/hr IV TITR PRN; Protocol; 40 MCG/MIN PRN Reason: BP MAINTENANCE (PER PROTOCOL) Stop: 04/12/17 07:46 Last Titration: 02/15/17 16:30 Dose: 0 mcg/min, 0 mls/hr Diltiazem HCl 125 mg/ Dextrose 125 mls @ 10 mls/hr IV TITR PATRICIA; 10 MG/HR PRN Reason: Protocol Stop: 04/15/17 04:29 Last Titration: 02/15/17 10:18 Dose: Infused Sodium Chloride (Nacl 0.45%) 1,000 mls @ 0 mls/hr IV .Q0M PATRICIA PRN Reason: KVO Stop: 04/15/17 10:13 Last Admin: 02/14/17 11:04 Dose: 10 mls/hr Metronidazole (Flagyl) 500 mg in 100 mls @ 100 mls/hr IV Q8HR PATRICIA Stop: 04/19/17 21:59 Last Admin: 02/20/17 13:04 Dose: 100 mls/hr Methylprednisolone Sodium Succinate (Solu-Medrol) 20 mg IVP Q8HR PATRICIA Stop: 04/14/17 12:59 Last Admin: 02/20/17 13:04 Dose: 20 mg Miscellaneous (Probiotic Screen) 1 ea PRN PRN PRN Reason: PROTOCOL Stop: 04/12/17 09:13 Miscellaneous (Clinical Monitoring) 1 ea MC DAILY PRN PRN Reason: RENAL Stop: 04/19/17 12:28 Ondansetron HCl (Zofran) 4 mg IV Q8H PRN PRN Reason: Nausea / Vomiting Stop: 04/11/17 08:23 Last Admin: 02/16/17 09:10 Dose: 4 mg Pantoprazole Sodium (Protonix) 40 mg PO DAILY PATRICIA Stop: 04/12/17 08:59 Last Admin: 02/20/17 09:43 Dose: 40 mg Potassium Chloride (Klor-Con) 20 meq PO DAILY PATRICIA Stop: 04/17/17 08:59 Last Admin: 02/20/17 09:43 Dose: 20 meq General: Alert, No acute distress, Mild distress HEENT: Atraumatic, PERRLA, EOMI, Mucous membr. moist/pink Neck: Supple, +2 carotid pulse wo bruit Cardiovascular: Regular rate, Normal S1, Normal S2 Lungs: Other (few rhonchi) Abdomen: Bowel sounds, Soft Extremities: no Edema Neurological: Sensation intact Skin: no Rash Psych/Mental Status: Mood NL Assessment/Plan - Problem List Patient Problems: All Active Problems NAUSEA AND VOMITING WITH DEHYDRATION (Acute) sepsis (Acute) Sepsis affecting skin (Acute) L02.91 Nutritional Asmnt/Malnutr-PDOC - Dietary Evaluation Malnutrition Findings (Please click <Entered> for more info): Nutritional Asmnt/Malnutrition Start: 02/14/17 13: 04 Text: Status: Complete Freq: Document 02/14/17 13:05 GSUN (Rec: 02/14/17 13:21 GSUN [id number]) Nutritional Asmnt/Malnutrition Patient General Information Nutritional Screening Moderate Risk Screening Pertinent Medical Hx/Surgical Hx Dx: Septic shock, hypotension, dehydration, metabolic acidosis improved, SU ?ATN, suspect aspiration PNA HTN, left knee prothesis, dyslipidemia, anemia Subjective Information 66 year old female, Croatian speaking. Pt was receiving breathing treatment during [facility] visit. Observed clear liquid tray at bedside. MD progress note 02/13: DC NG tube and start PO as tolerated. Spoke to RN STEFANIE Mayorga stated for breakfast pt tolerated 2 juices, declined broth, RN will remove mask and encourage lunch shortly. No significant wasting noted. 02/11 KUB: mild ielus. Current Diet Order/ Nutrition Support Clear liquid Pertinent Medications Vitamin C, Lipitor, Culturelle , Solu-Medrol, Zofran, Protonix, Nacl 0.45% Pertinent Labs 02/13: potassium 3L 02/14: BUN 30H, creatinine 1.8H (declining) Nutritional Hx/Data Height 1.68 m Height (Calculated Centimeters) 167.6 Current Weight (lbs) 75.75 kg Weight (Calculated Kilograms) 75.7 Weight (Calculated Grams) 09762.9 [place] Body Weight 130 Weight Status Overweight GI Symptoms Skin Integrity/Comment: Josias 14. Non-pitting edema bilateral feet. 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 Estimated Nutritional Goals Calories/Kcals/Kg IBW 130lb/59.1kg Kcals Calculated 1478-1773kcal (25-30kcal/kg) Protein Calculated 59g (1g/kg) Fluid: ml 1478-1773ml (1ml/kcal) Nutritional Problem 1. Problem Problem Impaired nutrient utilization related to Etiology renal dysfunction, per MD note SU ?ATN Signs/Symptoms: BUN 30H, creatinine 1.8H Intervention/Recommendation Comments 1. Recommend advance diet as tolerated to low sodium diet, to aid in renal function. No renal restriction due to hx of hypokalemia. Expected Outcomes/Goals Expected Outcomes/Goals 1. Pt to resume diet and meet at least 75% fo estimated nutritional needs.
--- NOTE | 2017-02-20 13:15 | Consultation ---
Consult Note - Consult Note Service Date: 02/19/17 Consult Note: PHYSICIAN Consultation Note: Date of Admission: 02/09/17 Purpose of Consultation: Chief Complaint: History of Present Illness: Patient AMANDA MALONE was admitted to [facility] Telemetry with ABD.PAIN- DISTENDED GALL BLADDER-LEUKOCYTOSIS. Past Medical History: Diagnoses SEPSIS, UNSPECIFIED ORGANISM (02/09/17) ANEMIA, UNSPECIFIED (02/09/17) HYPERLIPIDEMIA, UNSPECIFIED (02/09/17) DEHYDRATION (02/09/17) ACIDOSIS (02/09/17) HYPOKALEMIA (02/09/17) ESSENTIAL (PRIMARY) HYPERTENSION (02/09/17) PNEUMONITIS DUE TO INHALATION OF FOOD AND VOMIT (02/09/17) UMBILICAL HERNIA WITHOUT OBSTRUCTION OR GANGRENE (02/09/17) ILEUS, UNSPECIFIED (02/09/17) CHOLECYSTITIS, UNSPECIFIED (02/09/17) ACUTE KIDNEY FAILURE WITH TUBULAR NECROSIS (02/09/17) UNSPECIFIED ABDOMINAL PAIN (02/09/17) SEVERE SEPSIS WITH SEPTIC SHOCK (02/09/17) Allergies Allergy/AdvReac Type Severity Reaction Status Date / Time No Known Allergies Allergy Verified 02/09/17 17:43 Vital Signs Temp 97.4 F 02/20/17 08:00 Pulse 83 02/20/17 08:03 Resp 20 02/20/17 08:05 BP 121/67 02/20/17 09:44 Pulse Ox 95 02/20/17 08:03 Intake & Output 02/19/17 02/20/17 02/20/17 18:59 06:59 18:59 Intake Total 920 460 Output Total 2550 600 Balance -1630 -140 Weight (lbs) 80.286 kg 80.286 kg Intake: Intake, IV Amount 300 400 Piperacillin Sodium/ 100 200 Tazobact 4.5 gm In Sodium Chloride 0.9% 100 ml @ 100 mls/hr IV Q8HR PATRICIA Rx #:[id number] metroNIDAZOLE 500mg/NS 200 200 100mL 500 mg In 100 ml @ 100 mls/hr IV Q8HR PATRICIA Rx #:[id number] Oral 620 60 Output: Urine 2550 600 Other: # Bowel Movements 1 Laboratory Results - last 24 hr 02/19/17 02/20/17 02/20/17 16:04 06:28 06:28 WBC 46.1 H* RBC 4.22 Hgb 12.3 Hct 35.9 D MCV 85.0 MCH 29.2 MCHC Differential 34.3 RDW 17.6 Plt Count 372 MPV 8.8 Band Neutrophils % 2 Neutrophils (Manual) 91 H Lymphocytes 7 L Platelet Estimate ADEQUATE PT 15.6 H INR 1.47 H PTT (Actin FS) 29.9 Sodium 135 L Potassium 4.1 Chloride 98 Carbon Dioxide 26.3 Anion Gap 14.8 BUN 59 H Creatinine 2.3 H Est GFR ( Amer) 27.4 Est GFR (Non-Af Amer) 22.6 BUN/Creatinine Ratio 25.7 Glucose 98 Calcium 8.1 L Total Bilirubin 0.8 AST 103 H ALT 100 H Alkaline Phosphatase 349 H Total Protein 5.5 L Albumin 2.6 L Globulin 2.9 Albumin/Globulin Ratio 0.9 L Home Medication Medication Instructions Recorded Type APAP/Codeine 300 mg/30 mg [Tylenol 1 tab PO Q6HR PRN 02/09/17 History w/Codeine #3] Acetaminophen [Tylenol] 650 mg PO Q4HR PRN 02/09/17 History Ascorbic Acid [Vitamin C] 500 mg PO DAILY 02/09/17 History Atorvastatin Calcium [Lipitor] 10 mg PO HS 02/09/17 History Enalapril Maleate [Vasotec] 5 mg PO Q12H 02/09/17 History Hydrochlorothiazide 25 mg PO DAILY 02/09/17 History Hydrocodone/APAP 5mg/325mg [[place] 2 tab PO Q4H PRN 02/09/17 History 5mg/325mg] Magnesium Chloride [Magnesium Dr] 128 mg PO BID 02/09/17 History Multivitamin w/ Minerals 1 tab PO DAILY 02/09/17 History [Theragran M] OLANZapine [ZyPREXA] 7.5 mg PO DAILY 02/09/17 History Ondansetron HCl [Zofran*] 4 mg PO Q6H PRN 02/09/17 History Pantoprazole [Protonix] 40 mg PO DAILY 02/09/17 History Potassium Chloride ER [Klor-Con] 20 meq PO DAILY 02/09/17 History Protein Hydrolysate,Milk [Liquid 54 ml PO DAILY 02/09/17 History Protein Fortifier] [place] 2 tab PO DAILY 02/09/17 History Sodium Bicarbonate 650 mg PO BID 02/09/17 History Current Medications Generic Name Dose Route Start Last Admin Trade Name Freq PRN Reason Stop Dose Admin Acetaminophen 650 mg 02/10/17 15:22 Tylenol PO 04/11/17 15:21 Q4HR PRN TEMP >100 OR PAIN Acetaminophen/Codeine Phosphate 1 tab 02/10/17 15:22 02/18/17 05:19 Tylenol W/Codeine #3 PO 04/11/17 15:21 1 tab Q6HR PRN Administration MODERATE PAIN Acetaminophen/Hydrocodone Bitart 2 tab 02/10/17 15:22 02/18/17 08:48 [place] 5mg/325mg PO 04/11/17 15:21 2 tab Q4H PRN Administration Severe Pain Albuterol Sulfate 2.5 mg 02/12/17 08:22 02/17/17 19:36 Albuterol 2.5mg/3ml Neb Ud HHN 04/13/17 08:21 2.5 mg Q4HRT PRN Administration Wheezing Ascorbic Acid 500 mg 02/11/17 09:00 02/20/17 09:43 Vitamin C PO 04/12/17 08:59 500 mg DAILY PATRICIA Administration Atorvastatin Calcium 10 mg 02/10/17 21:00 02/19/17 20:56 Lipitor PO 04/11/17 20:59 10 mg HS PATRICIA Administration Protocol Furosemide 40 mg 02/18/17 17:00 02/20/17 09:44 Lasix IVP 04/19/17 16:59 40 mg BID PATRICIA Administration Heparin Sodium (Porcine) 5,000 units 02/20/17 00:00 02/20/17 09:44 Heparin HD 02/21/17 00:00 Not Given UD PATRICIA Piperacillin Sod/Tazobactam 100 mls @ 100 mls/hr 02/10/17 14:00 02/20/17 06: 36 Sod 4.5 gm/ Sodium Chloride IV 04/11/17 13:59 Infused Q8HR PATRICIA Infusion Norepinephrine Bitartrate 8 mg 258 mls @ 77.4 mls/hr 02/11/17 07:47 02/15/17 16:30 / Dextrose IV 04/12/17 07:46 0 mcg/min TITR PRN 0 mls/hr BP MAINTENANCE (PER PROTOCOL) Titration Protocol 40 MCG/MIN Diltiazem HCl 125 mg/ Dextrose 125 mls @ 10 mls/hr 02/14/17 04:30 02/15/17 10 :18 IV 04/15/17 04:29 Infused TITR PATRICIA Titration Protocol 10 MG/HR Sodium Chloride 1,000 mls @ 0 mls/hr 02/14/17 10:14 02/14/17 11:04 Nacl 0.45% IV 04/15/17 10:13 10 mls/hr .Q0M PATRICIA Administration KVO Metronidazole 500 mg in 100 mls @ 100 mls/hr 02/18/17 22:00 02/20/17 13:04 Flagyl IV 04/19/17 21:59 100 mls/hr Q8HR PATRICIA Administration Methylprednisolone Sodium Succinate 20 mg 02/13/17 13:00 02/20/17 13:04 Solu-Medrol IVP 04/14/17 12:59 20 mg Q8HR PATRICIA Administration Miscellaneous 1 02/11/17 09:14 Probiotic Screen 04/12/17 09:13 PRN PRN PROTOCOL Miscellaneous 1 02/18/17 12:29 Clinical Monitoring 04/19/17 12:28 DAILY PRN RENAL Ondansetron HCl 4 mg 02/10/17 08:24 02/16/17 09:10 Zofran IV 04/11/17 08:23 4 mg Q8H PRN Administration Nausea / Vomiting Pantoprazole Sodium 40 mg 02/11/17 09:00 02/20/17 09:43 Protonix PO 04/12/17 08:59 40 mg DAILY PATRICIA Administration Potassium Chloride 20 meq 02/16/17 09:00 02/20/17 09:43 Klor-Con PO 04/17/17 08:59 20 meq DAILY PATRICIA Administration Review of Systems: A 12 point ROS was reviewed with the pertinent positive and negatives noted in the HPI. Social History Smoking Status Never smoker Family Medical History Family Medical History Start: 02/10/17 00: 08 Freq: ONCE Status: Active Document 02/10/17 01:30 DEREJE (Rec: 02/10/17 03:14 SYSANJANA [id number]) Family Medical History Mother History Unknown Yes Physical Exam: General: HEENT: Cardio: Respiratory: Abdominal: Genital/Urinary: Extremities: Neurological: Assessment: BUN and creatinine persistently elevated. Per recommendation of shop service technician, Dr. Laguerre, hemodialysis needs to be started Plan: Jairo catheter placement in subclavian vein. Risks and complications discussed with son and daughter and consent was given via phone Signed, Alvaro Lyons 02/20/[id number]
--- NOTE | 2017-02-20 13:45 | Operative Report ---
Operative Report - Surgery Date of Surgery:: 02/20/17 Procedure:: tirso insertion left subclavian vein under ultrasound guidance Indication for procedure:: acute renal failure Procedure consent:: given by son and daughter via phone Anesthesia:: Anesthesiologist: Anesthesia: local Preoperative diagnosis:: acute renal failure Postoperative diagnosis:: same Description of Procedure:: the left chest was prepped with Chloraprep and draped. 1% Lidocaine was used to infiltrate the site identified on ultrasound. A size 18 needle was used to access the vein. The guidewire was inserted, the dilator then the triple lumen Arrow catheter. A portable chest xray was ordred stat Recommendations:: dialysis per client development manager
[2017-02-20 14:10] LABS: HEP B CORE IGM Negative (Negative); HEP C ANTIBODY 0.1 s/co ratio (0.0-0.9)
--- NOTE | 2017-02-20 14:48 | General Progress Note ---
Subjective - Review of Systems Service Date: 02/20/17 Subjective: More awake, verbal, mild tachypnea Objective - Results Result Diagrams: 02/20/17 06:28 02/20/17 06:28 Recent Labs: Laboratory Last Values WBC 46.1 Th/cmm (4.8-10.8) H* 02/20/17 06:28 Corrected WBC (auto) 52.5 Th/cmm (4.8-10.8) H* 02/19/17 09:00 RBC 4.22 Mil/cmm (3.80-5.20) 02/20/17 06:28 Hgb 12.3 gm/dL (11.7-16.1) 02/20/17 06:28 Hct 35.9 % (35.0-45.0) D 02/20/17 06:28 MCV 85.0 fl (81-100) 02/20/17 06:28 MCH 29.2 pg (27.0-31.0) 02/20/17 06:28 MCHC Differential 34.3 pg (28.0-36.0) 02/20/17 06:28 RDW 17.6 % (11.5-20.0) 02/20/17 06:28 Plt Count 372 Th/cmm (150-400) 02/20/17 06:28 MPV 8.8 fl 02/20/17 06:28 Neutrophils % 84.8 % (40.0-80.0) H 02/16/17 05:00 Band Neutrophils % 2 % (0-10) 02/20/17 06:28 Lymphocytes % 10.0 % (20.0-50.0) L 02/16/17 05:00 Monocytes % 2.7 % (2.0-10.0) 02/16/17 05:00 Eosinophils % 0.1 % (0.0-5.0) 02/16/17 05:00 Basophils % 2.4 % (0.0-2.0) H 02/16/17 05:00 Neutrophils (Manual) 91 % (40-80) H 02/20/17 06:28 Lymphocytes 7 % (20-50) L 02/20/17 06:28 Monocytes 4 % (2-10) 02/19/17 09:00 Eosinophils 1 % (0-5) 02/15/17 05:00 Basophils 1 % (0-3) 02/09/17 20:27 Nucleated RBCs 6.0 % (0-0) H 02/19/17 09:00 Platelet Estimate ADEQUATE (NORMAL) 02/20/17 06:28 Platelet Morphology PLATELET CLUMPS SEEN (NORMAL) 02/18/17 05:55 Anisocytosis 1+ 02/18/17 05:55 RBC Morph Micro Appear ABNORMAL (NORMAL) 02/18/17 05:55 Smear Path Review YES 02/19/17 09:00 Eos Smear Source URINE 02/14/17 17:40 Eos Smear Total Cells NONE SEEN (NONE SEEN) 02/14/17 17:40 PT 15.6 SECONDS (9.5-11.5) H 02/19/17 16:04 INR 1.47 (0.5-1.4) H 02/19/17 16:04 PTT (Actin FS) 29.9 SECONDS (26.0-38.0) 02/19/17 16:04 Specimen Source Arterial 02/14/17 16:00 Sample Site Right Radial 02/14/17 16:00 pH 7.40 (7.35-7.45) 02/14/17 16:00 pCO2 33.0 mmHg (35.0-45.0) L 02/14/17 16:00 pO2 103.0 mmHg (80.0-100.0) H 02/14/17 16:00 HCO3 22.1 mEq/L (20.0-26.0) 02/14/17 16:00 Base Excess -3.6 mEq/L (-3.0-3.0) L 02/14/17 16:00 O2 Saturation 98.0 % (92.0-100.0) 02/14/17 16:00 Robin Test Positive 02/14/17 16:00 Vent Rate 12 02/14/17 16:00 Inspired O2 40 02/14/17 16:00 Tidal Volume NA 02/14/17 16:00 PEEP 6 02/14/17 16:00 Pressure (ins/psv/peep) 6 02/14/17 16:00 Critical Value LZHANG 02/14/17 16:00 Sodium 135 mEq/L (136-145) L 02/20/17 06:28 Potassium 4.1 mEq/L (3.5-5.1) 02/20/17 06:28 Chloride 98 mEq/L (98-107) 02/20/17 06:28 Carbon Dioxide 26.3 mEq/L (21.0-31.0) 02/20/17 06:28 Anion Gap 14.8 (7.0-16.0) 02/20/17 06:28 BUN 59 mg/dL (7-25) H 02/20/17 06:28 Creatinine 2.3 mg/dL (0.6-1.2) H 02/20/17 06:28 Est GFR ( Amer) 27.4 ml/min (>90) 02/20/17 06:28 Est GFR (Non-Af Amer) 22.6 ml/min 02/20/17 06:28 BUN/Creatinine Ratio 25.7 02/20/17 06:28 Glucose 98 mg/dL (70-105) 02/20/17 06:28 POC Glucose 170 MG/DL (70 - 105) H 02/12/17 09:42 Hemoglobin A1c % 5.1 % (4.0-6.0) 02/11/17 08:11 Whole Bld Lactic Acid 1.29 mmol/L (0.60-1.99) 02/16/17 05:00 Uric Acid 11.2 mg/dL (2.3-6.6) H 02/15/17 05:00 Calcium 8.1 mg/dL (8.6-10.3) L 02/20/17 06:28 Phosphorus 3.8 mg/dL (2.5-5.0) 02/15/17 05:00 Magnesium 2.2 mg/dL (1.9-2.7) 02/19/17 05:40 Total Bilirubin 0.8 mg/dL (0.3-1.0) 02/20/17 06:28 AST 103 U/L (13-39) H 02/20/17 06:28 ALT 100 U/L (7-52) H 02/20/17 06:28 Alkaline Phosphatase 349 U/L (34-104) H 02/20/17 06:28 Creatine Kinase 67 U/L (30-223) 02/12/17 04:41 CK-MB (CK-2) 1.1 ng/mL (0.6-6.3) 02/09/17 20:27 Troponin I 0.01 ng/mL (0.01-0.05) 02/09/17 20:27 B-Natriuretic Peptide 2860.0 pg/mL (5.0-100.0) H 02/19/17 05:40 Total Protein 5.5 gm/dL (6.0-8.3) L 02/20/17 06:28 Albumin 2.6 gm/dL (3.7-5.3) L 02/20/17 06:28 Globulin 2.9 gm/dL 02/20/17 06:28 Albumin/Globulin Ratio 0.9 (1.0-1.8) L 02/20/17 06:28 Amylase 23 U/L (29-103) L 02/13/17 05:03 Lipase 13 U/L (11-82) 02/13/17 05:03 Urine Source ZEE PORT 02/14/17 17:40 Urine Color YELLOW 02/14/17 17:40 Urine Clarity SLIGHT HAZY (CLEAR) 02/14/17 17:40 Urine pH 5.5 02/14/17 17:40 Ur Specific [place] 1.020 (1.005-1.030) 02/14/17 17:40 Urine Protein 100 mg/dL (NEGATIVE) H 02/14/17 17:40 Urine Glucose (UA) NEGATIVE mg/dL (NEGATIVE) 02/14/17 17:40 Urine Ketones NEGATIVE mg/dL (NEGATIVE) 02/14/17 17:40 Urine Blood MODERATE (NEGATIVE) H 02/14/17 17:40 Urine Nitrate NEGATIVE (NEGATIVE) 02/14/17 17:40 Urine Bilirubin NEGATIVE (NEGATIVE) 02/14/17 17:40 Urine Urobilinogen 0.2 E.U./dL (0.2 - 1.0) 02/14/17 17:40 Ur Leukocyte Esterase NEGATIVE (NEGATIVE) 02/14/17 17:40 Urine RBC 2-5 /hpf (0-5) 02/14/17 17:40 Urine WBC 2-5 /hpf (0-5) 02/14/17 17:40 Ur Epithelial Cells FEW /lpf (FEW) 02/14/17 17:40 Amorphous Sediment MANY URATES (NONE SEEN) 02/14/17 17:40 Urine Bacteria MODERATE /hpf (NONE SEEN) 02/14/17 17:40 Hyaline Casts 0-2 /lpf (0-2) H 02/09/17 21:05 Urine Yeast FEW /hpf (NONE SEEN) H 02/14/17 17:40 Ur Random Sodium 37 mmol/L 02/14/17 17:40 Urine Creatinine 32.9 mg/dl (Not Estab.) 02/14/17 21:55 Urine Microalbumin 332.1 ug/mL (Not Estab.) 02/14/17 21:55 Microalb/Creat Ratio 1009.4 mg/g creat (0.0-30.0) H 02/14/17 21:55 Stool Leukocyte NO WBC SEEN 02/12/17 00:05 Hepatitis A IgM Ab Negative (Negative) 02/19/17 06:00 Hep Bs Antigen Negative (Negative) 02/19/17 06:00 Hep B Core IgM Ab Negative (Negative) 02/19/17 06:00 Hepatitis C Antibody 0.1 s/co ratio (0.0-0.9) 02/19/17 06:00 - Physical Exam Vitals and I&O: Vital Signs Temp 97.4 F 02/20/17 08:00 Pulse 83 02/20/17 08:03 Resp 20 02/20/17 08:05 BP 121/67 02/20/17 09:44 Pulse Ox 95 02/20/17 08:03 Intake & Output 02/19/17 02/20/17 02/20/17 18:59 06:59 18:59 Intake Total 920 460 Output Total 2550 600 Balance -1630 -140 Weight (lbs) 80.286 kg 80.286 kg Intake: Intake, IV Amount 300 400 Piperacillin Sodium/ 100 200 Tazobact 4.5 gm In Sodium Chloride 0.9% 100 ml @ 100 mls/hr IV Q8HR PATRICIA Rx #:[id number] metroNIDAZOLE 500mg/NS 200 200 100mL 500 mg In 100 ml @ 100 mls/hr IV Q8HR PATRICIA Rx #:[id number] Oral 620 60 Output: Urine 2550 600 Other: # Bowel Movements 1 Active Medications: Current Medications Acetaminophen (Tylenol) 650 mg PO Q4HR PRN PRN Reason: TEMP >100 OR PAIN Stop: 04/11/17 15:21 Acetaminophen/Codeine Phosphate (Tylenol W/Codeine #3) 1 tab PO Q6HR PRN PRN Reason: MODERATE PAIN Stop: 04/11/17 15:21 Last Admin: 02/18/17 05:19 Dose: 1 tab Acetaminophen/Hydrocodone Bitart ([place] 5mg/325mg) 2 tab PO Q4H PRN PRN Reason: Severe Pain Stop: 04/11/17 15:21 Last Admin: 02/18/17 08:48 Dose: 2 tab Albuterol Sulfate (Albuterol 2.5mg/3ml Neb Ud) 2.5 mg HHN Q4HRT PRN PRN Reason: Wheezing Stop: 04/13/17 08:21 Last Admin: 02/17/17 19:36 Dose: 2.5 mg Ascorbic Acid (Vitamin C) 500 mg PO DAILY PATRICIA Stop: 04/12/17 08:59 Last Admin: 02/20/17 09:43 Dose: 500 mg Atorvastatin Calcium (Lipitor) 10 mg PO HS PATRICIA PRN Reason: Protocol Stop: 04/11/17 20:59 Last Admin: 02/19/17 20:56 Dose: 10 mg Furosemide (Lasix) 40 mg IVP BID PATRICIA Stop: 04/19/17 16:59 Last Admin: 02/20/17 09:44 Dose: 40 mg Heparin Sodium (Porcine) (Heparin) 5,000 units HD UD PATRICIA Stop: 02/21/17 00:00 Last Admin: 02/20/17 09:44 Dose: Not Given Norepinephrine Bitartrate 8 mg (/ Dextrose) 258 mls @ 77.4 mls/hr IV TITR PRN; Protocol; 40 MCG/MIN PRN Reason: BP MAINTENANCE (PER PROTOCOL) Stop: 04/12/17 07:46 Last Titration: 02/15/17 16:30 Dose: 0 mcg/min, 0 mls/hr Diltiazem HCl 125 mg/ Dextrose 125 mls @ 10 mls/hr IV TITR PATRICIA; 10 MG/HR PRN Reason: Protocol Stop: 04/15/17 04:29 Last Titration: 02/15/17 10:18 Dose: Infused Sodium Chloride (Nacl 0.45%) 1,000 mls @ 0 mls/hr IV .Q0M PATRICIA PRN Reason: KVO Stop: 04/15/17 10:13 Last Admin: 02/14/17 11:04 Dose: 10 mls/hr Metronidazole (Flagyl) 500 mg in 100 mls @ 100 mls/hr IV Q8HR PATRICIA Stop: 04/19/17 21:59 Last Admin: 02/20/17 13:04 Dose: 100 mls/hr Piperacillin Sod/Tazobactam (Sod 2.25 gm/ Sodium Chloride) 50 mls @ 100 mls/hr IV Q6HR [facility] Stop: 04/21/17 17:59 Methylprednisolone Sodium Succinate (Solu-Medrol) 20 mg IVP Q8HR PATRICIA Stop: 04/14/17 12:59 Last Admin: 02/20/17 13:04 Dose: 20 mg Miscellaneous (Probiotic Screen) 1 ea PRN PRN PRN Reason: PROTOCOL Stop: 04/12/17 09:13 Miscellaneous (Clinical Monitoring) 1 ea DAILY PRN PRN Reason: RENAL Stop: 04/19/17 12:28 Ondansetron HCl (Zofran) 4 mg IV Q8H PRN PRN Reason: Nausea / Vomiting Stop: 04/11/17 08:23 Last Admin: 02/16/17 09:10 Dose: 4 mg Pantoprazole Sodium (Protonix) 40 mg PO DAILY PATRICIA Stop: 04/12/17 08:59 Last Admin: 02/20/17 09:43 Dose: 40 mg Potassium Chloride (Klor-Con) 20 meq PO DAILY PATRICIA Stop: 04/17/17 08:59 Last Admin: 02/20/17 09:43 Dose: 20 meq General: Alert, Mild distress HEENT: Atraumatic, PERRLA, EOMI, Mucous membr. moist/pink Neck: Supple, +2 carotid pulse wo bruit Cardiovascular: Regular rate, Normal S1, Normal S2 Lungs: Other (few rhonchi) Abdomen: Bowel sounds, Soft Extremities: no Edema Neurological: Sensation intact Skin: no Rash Psych/Mental Status: Mood NL Assessment/Plan - Problem List Patient Problems: All Active Problems NAUSEA AND VOMITING WITH DEHYDRATION (Acute) sepsis (Acute) Sepsis affecting skin (Acute) L02.91 - Assessment Assessment: Acute kidney injury secondary to acute tubular injury Fractional excretion of sodium is 1.1% suggestive of intrinsic renal failure Shock secondary to sepsis Distended gallbladder with normal acute cholecystitis Abdominal pain secondary to ileus Ileus secondary to sepsis Acute decompensation of systolic congestive heart failure(EJF 15-20%) Respiratory failure secondary to aspiration pneumonia/CHF Anemia of chronic kidney disease Dyslipidemia Status post Infected prosthesis left knee, status post I&D Purely anion gap metabolic acidosis with respiratory alkalosis Sepsis secondary to aspiration pneumonia Worsening liver enzymes due to sepsis, medications, hypotension Acalculous Cholecystitis - Plan Plan: Lab - Result Diagrams 02/15/17 05:00 02/15/17 05:00 Current Medications Acetaminophen (Tylenol) 650 mg PO Q4HR PRN PRN Reason: TEMP >100 OR PAIN Stop: 04/11/17 15:21 Acetaminophen/Codeine Phosphate (Tylenol W/Codeine #3) 1 tab PO Q6HR PRN PRN Reason: MODERATE PAIN Stop: 04/11/17 15:21 Last Admin: 02/14/17 02:08 Dose: 1 tab Acetaminophen/Hydrocodone Bitart ([place] 5mg/325mg) 2 tab PO Q4H PRN PRN Reason: Severe Pain Stop: 04/11/17 15:21 Last Admin: 02/15/17 00:06 Dose: 2 tab Albuterol Sulfate (Albuterol 2.5mg/3ml Neb Ud) 2.5 mg HHN Q4HRT PRN PRN Reason: Wheezing Stop: 04/13/17 08:21 Last Admin: 02/14/17 15:54 Dose: 2.5 mg Ascorbic Acid (Vitamin C) 500 mg PO DAILY PATRICIA Stop: 04/12/17 08:59 Last Admin: 02/15/17 09:33 Dose: 500 mg Atorvastatin Calcium (Lipitor) 10 mg PO HS PATRICIA PRN Reason: Protocol Stop: 04/11/17 20:59 Last Admin: 02/14/17 20:49 Dose: 10 mg Furosemide (Lasix) 40 mg IVP BID PATRICIA Stop: 04/14/17 08:59 Last Admin: 02/15/17 09:33 Dose: 40 mg Piperacillin Sod/Tazobactam (Sod 4.5 gm/ Sodium Chloride) 100 mls @ 100 mls/hr IV Q8HR [facility] Stop: 04/11/17 13:59 Last Admin: 02/15/17 05:23 Dose: 100 mls/hr Norepinephrine Bitartrate 8 mg (/ Dextrose) 258 mls @ 77.4 mls/hr IV TITR PRN; Protocol; 40 MCG/MIN PRN Reason: BP MAINTENANCE (PER PROTOCOL) Stop: 04/12/17 07:46 Last Admin: 02/15/17 01:45 Dose: 5.16 mcg/min, 9.98 mls/hr Diltiazem HCl 125 mg/ Dextrose 125 mls @ 10 mls/hr IV TITR PATRICIA; 10 MG/HR PRN Reason: Protocol Stop: 04/15/17 04:29 Last Titration: 02/15/17 10:18 Dose: Infused Sodium Chloride (Nacl 0.45%) 1,000 mls @ 0 mls/hr IV .Q0M PATRICIA PRN Reason: KVO Stop: 04/15/17 10:13 Last Admin: 02/14/17 11:04 Dose: 10 mls/hr Lactobacillus Rhamnosus (Culturelle) 1 each PO DAILY PATRICIA Stop: 04/13/17 08:59 Last Admin: 02/15/17 09:33 Dose: 1 each Methylprednisolone Sodium Succinate (Solu-Medrol) 20 mg IVP Q8HR [facility] Stop: 04/14/17 12:59 Last Admin: 02/15/17 05:23 Dose: 20 mg Miscellaneous (Probiotic Screen) 1 ea PRN PRN PRN Reason: PROTOCOL Stop: 04/12/17 09:13 Ondansetron HCl (Zofran) 4 mg IV Q8H PRN PRN Reason: Nausea / Vomiting Stop: 04/11/17 08:23 Last Admin: 02/12/17 00:59 Dose: 4 mg Pantoprazole Sodium (Protonix) 40 mg PO DAILY [facility] Stop: 04/12/17 08:59 Last Admin: 02/15/17 09:32 Dose: 40 mg Kidney function worse with a BUN/creatinine of 59/2.3 Chest x-ray basically the same with bilateral effusions, pulmonary congestion Continue diuretics for now due to CHF, elevated BNP(2860) Off Levophed Monitor electrolytes and CBC along with chest x-ray Replace potassium and magnesium White count continues to increase now at 46.1 Liver enzymes slightly improved Discussed with family about the possibility of dialysis if chest x-ray continues to show CHF with very poor response to diuretics and worsening kidney function I had a lengthy discussion with son Alexi about the need for hemodialysis as I have explained previously in my note, he agreed Echo revealed ejection fraction 15-20% with RVSP of 24.5, consider AICD, Bivent pacer schedule for HD today Nutritional Asmnt/Malnutr-PDOC - Dietary Evaluation Malnutrition Findings (Please click <Entered> for more info): Nutritional Asmnt/Malnutrition Start: 02/14/17 13: 04 Text: Status: Complete Freq: Document 02/14/17 13:05 HERMANN (Rec: 02/14/17 13:21 [id number]) Nutritional Asmnt/Malnutrition Patient General Information Nutritional Screening Moderate Risk Screening Pertinent Medical Hx/Surgical Hx Dx: Septic shock, hypotension, dehydration, metabolic acidosis improved, SU ?ATN, suspect aspiration PNA HTN, left knee prothesis, dyslipidemia, anemia Subjective Information 66 year old female, Estonian speaking. Pt was receiving breathing treatment during [facility]. Observed clear liquid tray at bedside. MD progress note 02/13: DC NG tube and start PO as tolerated. Spoke to STEFANIE Mayorga RN stated for breakfast pt tolerated 2 juices, declined broth, RN will remove mask and encourage lunch shortly. No significant wasting noted. 02/11 KUB: mild ielus. Current Diet Order/ Nutrition Support Clear liquid Pertinent Medications Vitamin C, Lipitor, Culturelle , Solu-Medrol, Zofran, Protonix, Nacl 0.45% Pertinent Labs 02/13: potassium 3L 02/14: BUN 30H, creatinine 1.8H (declining) Nutritional Hx/Data Height 1.68 m Height (Calculated Centimeters) 167.6 Current Weight (lbs) 75.75 kg Weight (Calculated Kilograms) 75.7 Weight (Calculated Grams) 35821.9 [place] Body Weight 130 Weight Status Overweight GI Symptoms Skin Integrity/Comment: Josias 14. Non-pitting edema bilateral feet. 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 Estimated Nutritional Goals Calories/Kcals/Kg IBW 130lb/59.1kg Kcals Calculated 1478-1773kcal (25-30kcal/kg) Protein Calculated 59g (1g/kg) Fluid: ml 1478-1773ml (1ml/kcal) Nutritional Problem 1. Problem Problem Impaired nutrient utilization related to Etiology renal dysfunction, per MD note SU ?ATN Signs/Symptoms: BUN 30H, creatinine 1.8H Intervention/Recommendation Comments 1. Recommend advance diet as tolerated to low sodium diet, to aid in renal function. No renal restriction due to hx of hypokalemia. Expected Outcomes/Goals Expected Outcomes/Goals 1. Pt to resume diet and meet at least 75% fo estimated nutritional needs.
--- NOTE | 2017-02-20 20:42 | Infectious Disease Prog Note ---
Infectious Disease Subjective - Review of Systems Service Date: 02/20/17 Subjective: There is no new change, no fever. No more nausea and vomiting. No diarhea. Patient WBC count went up to 55k and today went down to 46K. CT of the abd and pelvis performed and it suspected cholecystitis and colitis. It has suggested B/l pneumonia. Jairo cath was placed in left subclavian and had irst dialysis performed for Congestion. Infectious Disease Objective - Results Result Diagrams: 02/21/17 05:00 02/21/17 05:00 Recent Labs: Laboratory Last Values WBC 46.1 Th/cmm (4.8-10.8) H* 02/20/17 06:28 Corrected WBC (auto) 52.5 Th/cmm (4.8-10.8) H* 02/19/17 09:00 RBC 4.22 Mil/cmm (3.80-5.20) 02/20/17 06:28 Hgb 12.3 gm/dL (11.7-16.1) 02/20/17 06:28 Hct 35.9 % (35.0-45.0) D 02/20/17 06:28 MCV 85.0 fl (81-100) 02/20/17 06:28 MCH 29.2 pg (27.0-31.0) 02/20/17 06:28 MCHC Differential 34.3 pg (28.0-36.0) 02/20/17 06:28 RDW 17.6 % (11.5-20.0) 02/20/17 06:28 Plt Count 372 Th/cmm (150-400) 02/20/17 06:28 MPV 8.8 fl 02/20/17 06:28 Neutrophils % 84.8 % (40.0-80.0) H 02/16/17 05:00 Band Neutrophils % 2 % (0-10) 02/20/17 06:28 Lymphocytes % 10.0 % (20.0-50.0) L 02/16/17 05:00 Monocytes % 2.7 % (2.0-10.0) 02/16/17 05:00 Eosinophils % 0.1 % (0.0-5.0) 02/16/17 05:00 Basophils % 2.4 % (0.0-2.0) H 02/16/17 05:00 Neutrophils (Manual) 91 % (40-80) H 02/20/17 06:28 Lymphocytes 7 % (20-50) L 02/20/17 06:28 Monocytes 4 % (2-10) 02/19/17 09:00 Eosinophils 1 % (0-5) 02/15/17 05:00 Basophils 1 % (0-3) 02/09/17 20:27 Nucleated RBCs 6.0 % (0-0) H 02/19/17 09:00 Platelet Estimate ADEQUATE (NORMAL) 02/20/17 06:28 Platelet Morphology PLATELET CLUMPS SEEN (NORMAL) 02/18/17 05:55 Anisocytosis 1+ 02/18/17 05:55 RBC Morph Micro Appear ABNORMAL (NORMAL) 02/18/17 05:55 Smear Path Review YES 02/19/17 09:00 Eos Smear Source URINE 02/14/17 17:40 Eos Smear Total Cells NONE SEEN (NONE SEEN) 02/14/17 17:40 PT 15.6 SECONDS (9.5-11.5) H 02/19/17 16:04 INR 1.47 (0.5-1.4) H 02/19/17 16:04 PTT (Actin FS) 29.9 SECONDS (26.0-38.0) 02/19/17 16:04 Specimen Source Arterial 02/14/17 16:00 Sample Site Right Radial 02/14/17 16:00 pH 7.40 (7.35-7.45) 02/14/17 16:00 pCO2 33.0 mmHg (35.0-45.0) L 02/14/17 16:00 pO2 103.0 mmHg (80.0-100.0) H 02/14/17 16:00 HCO3 22.1 mEq/L (20.0-26.0) 02/14/17 16:00 Base Excess -3.6 mEq/L (-3.0-3.0) L 02/14/17 16:00 O2 Saturation 98.0 % (92.0-100.0) 02/14/17 16:00 Robin Test Positive 02/14/17 16:00 Vent Rate 12 02/14/17 16:00 Inspired O2 40 02/14/17 16:00 Tidal Volume NA 02/14/17 16:00 PEEP 6 02/14/17 16:00 Pressure (ins/psv/peep) 6 02/14/17 16:00 Critical Value LZHANG 02/14/17 16:00 Sodium 135 mEq/L (136-145) L 02/20/17 06:28 Potassium 4.1 mEq/L (3.5-5.1) 02/20/17 06:28 Chloride 98 mEq/L (98-107) 02/20/17 06:28 Carbon Dioxide 26.3 mEq/L (21.0-31.0) 02/20/17 06:28 Anion Gap 14.8 (7.0-16.0) 02/20/17 06:28 BUN 59 mg/dL (7-25) H 02/20/17 06:28 Creatinine 2.3 mg/dL (0.6-1.2) H 02/20/17 06:28 Est GFR ( Amer) 27.4 ml/min (>90) 02/20/17 06:28 Est GFR (Non-Af Amer) 22.6 ml/min 02/20/17 06:28 BUN/Creatinine Ratio 25.7 02/20/17 06:28 Glucose 98 mg/dL (70-105) 02/20/17 06:28 POC Glucose 170 MG/DL (70 - 105) H 02/12/17 09:42 Hemoglobin A1c % 5.1 % (4.0-6.0) 02/11/17 08:11 Whole Bld Lactic Acid 1.29 mmol/L (0.60-1.99) 02/16/17 05:00 Uric Acid 11.2 mg/dL (2.3-6.6) H 02/15/17 05:00 Calcium 8.1 mg/dL (8.6-10.3) L 02/20/17 06:28 Phosphorus 3.8 mg/dL (2.5-5.0) 02/15/17 05:00 Magnesium 2.2 mg/dL (1.9-2.7) 02/19/17 05:40 Total Bilirubin 0.8 mg/dL (0.3-1.0) 02/20/17 06:28 AST 103 U/L (13-39) H 02/20/17 06:28 ALT 100 U/L (7-52) H 02/20/17 06:28 Alkaline Phosphatase 349 U/L (34-104) H 02/20/17 06:28 Creatine Kinase 67 U/L (30-223) 02/12/17 04:41 CK-MB (CK-2) 1.1 ng/mL (0.6-6.3) 02/09/17 20:27 Troponin I 0.01 ng/mL (0.01-0.05) 02/09/17 20:27 B-Natriuretic Peptide 2860.0 pg/mL (5.0-100.0) H 02/19/17 05:40 Total Protein 5.5 gm/dL (6.0-8.3) L 02/20/17 06:28 Albumin 2.6 gm/dL (3.7-5.3) L 02/20/17 06:28 Globulin 2.9 gm/dL 02/20/17 06:28 Albumin/Globulin Ratio 0.9 (1.0-1.8) L 02/20/17 06:28 Amylase 23 U/L (29-103) L 02/13/17 05:03 Lipase 13 U/L (11-82) 02/13/17 05:03 Urine Source ZEE PORT 02/14/17 17:40 Urine Color YELLOW 02/14/17 17:40 Urine Clarity SLIGHT HAZY (CLEAR) 02/14/17 17:40 Urine pH 5.5 02/14/17 17:40 Ur Specific [place] 1.020 (1.005-1.030) 02/14/17 17:40 Urine Protein 100 mg/dL (NEGATIVE) H 02/14/17 17:40 Urine Glucose (UA) NEGATIVE mg/dL (NEGATIVE) 02/14/17 17:40 Urine Ketones NEGATIVE mg/dL (NEGATIVE) 02/14/17 17:40 Urine Blood MODERATE (NEGATIVE) H 02/14/17 17:40 Urine Nitrate NEGATIVE (NEGATIVE) 02/14/17 17:40 Urine Bilirubin NEGATIVE (NEGATIVE) 02/14/17 17:40 Urine Urobilinogen 0.2 E.U./dL (0.2 - 1.0) 02/14/17 17:40 Ur Leukocyte Esterase NEGATIVE (NEGATIVE) 02/14/17 17:40 Urine RBC 2-5 /hpf (0-5) 02/14/17 17:40 Urine WBC 2-5 /hpf (0-5) 02/14/17 17:40 Ur Epithelial Cells FEW /lpf (FEW) 02/14/17 17:40 Amorphous Sediment MANY URATES (NONE SEEN) 02/14/17 17:40 Urine Bacteria MODERATE /hpf (NONE SEEN) 02/14/17 17:40 Hyaline Casts 0-2 /lpf (0-2) H 02/09/17 21:05 Urine Yeast FEW /hpf (NONE SEEN) H 02/14/17 17:40 Ur Random Sodium 37 mmol/L 02/14/17 17:40 Urine Creatinine 32.9 mg/dl (Not Estab.) 02/14/17 21:55 Urine Microalbumin 332.1 ug/mL (Not Estab.) 02/14/17 21:55 Microalb/Creat Ratio 1009.4 mg/g creat (0.0-30.0) H 02/14/17 21:55 Stool Leukocyte NO WBC SEEN 02/12/17 00:05 Hepatitis A IgM Ab Negative (Negative) 02/19/17 06:00 Hep Bs Antigen Negative (Negative) 02/19/17 06:00 Hep B Core IgM Ab Negative (Negative) 02/19/17 06:00 Hepatitis C Antibody 0.1 s/co ratio (0.0-0.9) 02/19/17 06:00 - Physical Exam Vitals and I&O: Vital Signs Temp 97.4 F 02/20/17 20:00 Pulse 80 02/20/17 20:00 Resp 20 02/20/17 20:00 BP 117/52 02/20/17 20:00 Pulse Ox 98 02/20/17 20:00 Intake & Output 02/20/17 02/20/17 02/21/17 06:59 18:59 06:59 Intake Total 460 400 Output Total 600 3400 Balance -140 -3000 Weight (lbs) 80.286 kg 80.286 kg Intake: Intake, IV Amount 400 100 Piperacillin Sodium/ 200 Tazobact 4.5 gm In Sodium Chloride 0.9% 100 ml @ 100 mls/hr IV Q8HR PATRICIA Rx #:[id number] metroNIDAZOLE 500mg/NS 200 100 100mL 500 mg In 100 ml @ 100 mls/hr IV Q8HR PATRICIA Rx #:[id number] Oral 60 300 Output: Urine 600 3400 Other: # Bowel Movements 1 Active Medications: Current Medications Acetaminophen (Tylenol) 650 mg PO Q4HR PRN PRN Reason: TEMP >100 OR PAIN Stop: 04/11/17 15:21 Acetaminophen/Codeine Phosphate (Tylenol W/Codeine #3) 1 tab PO Q6HR PRN PRN Reason: MODERATE PAIN Stop: 04/11/17 15:21 Last Admin: 02/18/17 05:19 Dose: 1 tab Acetaminophen/Hydrocodone Bitart ([place] 5mg/325mg) 2 tab PO Q4H PRN PRN Reason: Severe Pain Stop: 04/11/17 15:21 Last Admin: 02/18/17 08:48 Dose: 2 tab Albuterol Sulfate (Albuterol 2.5mg/3ml Neb Ud) 2.5 mg HHN Q4HRT PRN PRN Reason: Wheezing Stop: 04/13/17 08:21 Last Admin: 02/17/17 19:36 Dose: 2.5 mg Ascorbic Acid (Vitamin C) 500 mg PO DAILY PATRICIA Stop: 04/12/17 08:59 Last Admin: 02/20/17 09:43 Dose: 500 mg Atorvastatin Calcium (Lipitor) 10 mg PO HS PATRICIA PRN Reason: Protocol Stop: 04/11/17 20:59 Last Admin: 02/19/17 20:56 Dose: 10 mg Furosemide (Lasix) 40 mg IVP BID PATRICIA Stop: 04/19/17 16:59 Last Admin: 02/20/17 18:41 Dose: 40 mg Heparin Sodium (Porcine) (Heparin) 5,000 units HD UD PATRICIA Stop: 02/21/17 00:00 Last Admin: 02/20/17 09:44 Dose: Not Given Sodium Chloride (Nacl 0.45%) 1,000 mls @ 0 mls/hr IV .Q0M PATRICIA PRN Reason: KVO Stop: 04/15/17 10:13 Last Admin: 02/14/17 11:04 Dose: 10 mls/hr Metronidazole (Flagyl) 500 mg in 100 mls @ 100 mls/hr IV Q8HR PATRICIA Stop: 04/19/17 21:59 Last Infusion: 02/20/17 14:05 Dose: Infused Piperacillin Sod/Tazobactam (Sod 2.25 gm/ Sodium Chloride) 50 mls @ 100 mls/hr IV Q6HR PATRICIA Stop: 04/21/17 17:59 Methylprednisolone Sodium Succinate (Solu-Medrol) 20 mg IVP Q8HR PATRICIA Stop: 04/14/17 12:59 Last Admin: 02/20/17 13:04 Dose: 20 mg Miscellaneous (Probiotic Screen) 1 ea MC PRN PRN PRN Reason: PROTOCOL Stop: 04/12/17 09:13 Miscellaneous (Clinical Monitoring) 1 ea MC DAILY PRN PRN Reason: RENAL Stop: 04/19/17 12:28 Ondansetron HCl (Zofran) 4 mg IV Q8H PRN PRN Reason: Nausea / Vomiting Stop: 04/11/17 08:23 Last Admin: 02/16/17 09:10 Dose: 4 mg Pantoprazole Sodium (Protonix) 40 mg PO DAILY PATRICIA Stop: 04/12/17 08:59 Last Admin: 02/20/17 09:43 Dose: 40 mg Potassium Chloride (Klor-Con) 20 meq PO DAILY PATRICIA Stop: 04/17/17 08:59 Last Admin: 02/20/17 09:43 Dose: 20 meq General: no acute distress, well developed, well nourished HEENT: atraumatic, normocephalic Neck: supple, no thyromegaly Cardiovascular: S1S2, regular Lungs: clear to auscultation bilaterally, clear to percussion Abdomen: soft, bowel sounds, no tender, no distended Extremities: no cyanosis, no clubbing, no edema, no other (Left iknee , no swelling, no redness, incision wound is healing well.) Neurological: awake, alert, oriented Skin: intact Infectious Disease Assmt/Plan - Problem List Patient Problems: All Active Problems NAUSEA AND VOMITING WITH DEHYDRATION (Acute) sepsis (Acute) Sepsis affecting skin (Acute) L02.91 - Assessment Assessment: 1. Septic shock improved. Improving. lactic acidosis Improved. 2. Pneumonia. 3. H/o HTN. 4. H/o Anemia. 5. Metabolic acidosis, improved. 6. SU, ? ATN. worsening of the creatinine. 7. Small superficial leg wound at the distal end, no sign of infection. 8. CHF. 9. H/O Left TKR. no clinical sign of infection. h/o prosthesis infection, treated recently. 10. Suspect aspiration pneumonia. 11. elevated liver enzymes. 12. Leukocytosis, without bandemia, ? steroid ? Sepsis ? CDAC. 13. Suspect CDAC , as patient has very high WBC ount. Recommendations: Antibiotic cheek, continue zosyn and flagyl and Stool for C diff. wound care. f/u Blood cultures. Nutritional Asmnt/Malnutr-PDOC - Dietary Evaluation Malnutrition Findings (Please click <Entered> for more info): Nutritional Asmnt/Malnutrition Start: 02/14/17 13: 04 Text: Status: Complete Freq: Document 02/14/17 13:05 GSUN (Rec: 02/14/17 13:21 GSUN [id number]) Nutritional Asmnt/Malnutrition Patient General Information Nutritional Screening Moderate Risk Screening Pertinent Medical Hx/Surgical Hx Dx: Septic shock, hypotension, dehydration, metabolic acidosis improved, SU ?ATN, suspect aspiration PNA HTN, left knee prothesis, dyslipidemia, anemia Subjective Information 66 year old female, [place] speaking. Pt was receiving breathing treatment during [facility] visit. Observed clear liquid tray at bedside. MD progress note 02/13: DC NG tube and start PO as tolerated. Spoke to STEFANIE Mayorga, STEFANIE stated for breakfast pt tolerated 2 juices, declined broth, RN will remove mask and encourage lunch shortly. No significant wasting noted. 02/11 KUB: mild ielus. Current Diet Order/ Nutrition Support Clear liquid Pertinent Medications Vitamin C, Lipitor, Culturelle , Solu-Medrol, Zofran, Protonix, Nacl 0.45% Pertinent Labs 02/13: potassium 3L 02/14: BUN 30H, creatinine 1.8H (declining) Nutritional Hx/Data Height 1.68 m Height (Calculated Centimeters) 167.6 Current Weight (lbs) 75.75 kg Weight (Calculated Kilograms) 75.7 Weight (Calculated Grams) 07434.9 [place] Body Weight 130 Weight Status Overweight GI Symptoms Skin Integrity/Comment: Josias 14. Non-pitting edema bilateral feet. 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 Estimated Nutritional Goals Calories/Kcals/Kg IBW 130lb/59.1kg Kcals Calculated 1478-1773kcal (25-30kcal/kg) Protein Calculated 59g (1g/kg) Fluid: ml 1478-1773ml (1ml/kcal) Nutritional Problem 1. Problem Problem Impaired nutrient utilization related to Etiology renal dysfunction, per MD note SU ?ATN Signs/Symptoms: BUN 30H, creatinine 1.8H Intervention/Recommendation Comments 1. Recommend advance diet as tolerated to low sodium diet, to aid in renal function. No renal restriction due to hx of hypokalemia. Expected Outcomes/Goals Expected Outcomes/Goals 1. Pt to resume diet and meet at least 75% fo estimated nutritional needs.
[2017-02-20] MEDS: Atorvastatin Calcium 10 MG TAB PO SCH (22:12)
[2017-02-20] MEDS: Piperacillin/Tazobact 2.25 gm in 0.9% NS 50 ML IV SCH (22:13)
[2017-02-21] MEDS: Piperacillin/Tazobact 2.25 gm in 0.9% NS 50 ML IV SCH ×3 (04:44→17:11)
[2017-02-21] MEDS: methylPREDNISolone SS 40 mg Vial IVP SCH ×3 (04:44→21:30)
[2017-02-21 05:35] LABS: HEMATOCRIT 35.7 % (35.0-45.0); HEMOGLOBIN 12.2 gm/dL (11.7-16.1); MEAN CELL VOLUME 83.5 fl (81-100); MEAN CORPUSCULAR HEMOGLOBIN 28.5 pg (27.0-31.0); MEAN CORPUSCULAR HGB CONC 34.2 pg (28.0-36.0); MEAN PLATELET VOLUME 8.6 fl; PLATELET COUNT 349 Th/cmm (150-400); RED BLOOD COUNT 4.27 Mil/cmm (3.80-5.20)
[2017-02-21 05:42] LABS: WHITE BLOOD COUNT 41.1 Th/cmm (4.8-10.8)
[2017-02-21] MEDS: metroNIDAZOLE 500mg/NS 100mL 500 MG/100 ML BAG IV SCH ×3 (06:03→23:17)
[2017-02-21 06:14] LABS: ANION GAP 14.4 (7.0-16.0); BILIRUBIN,TOTAL 0.9 mg/dL (0.3-1.0); BUN/CREATININE RATIO 25.8; CALCIUM SERUM 8.2 mg/dL (8.6-10.3); CARBON DIOXIDE 23.6 mEq/L (21.0-31.0); CREATININE - SERUM 1.9 mg/dL (0.6-1.2)
[2017-02-21 07:35] LABS: NEUTROPHILS 89 % (40-80); PLATELET ESTIMATE ADEQUATE (NORMAL); TOTAL CELLS COUNTED 100
[2017-02-21] MEDS: Potassium Chloride 20 mEq ER Tab PO SCH (08:54)
[2017-02-21] MEDS: Pantoprazole 40 mg EC Tab PO SCH (08:54)
[2017-02-21] MEDS: Multivitamin w/ Minerals Tab PO SCH (08:54)
--- NOTE | 2017-02-21 09:41 | Diagnostic Imaging Report ---
Portable chest x-ray HISTORY: Shortness of breath Compared to prior exam of February 20, 2017, the heart remains enlarged. There is persistent density within the left lower hemithorax that may be associated with pleural fluid. Underlying consolidation and/or atelectasis cannot be excluded. IMPRESSION: 1. No change in the cardiopulmonary status since February 20, 2017 as noted above.
--- NOTE | 2017-02-21 09:57 | Diagnostic Imaging Report ---
Radionuclide biliary scan [place] HIDA scan) HISTORY: Pain 5.0 mCi technetium labeled biliary age and was used in the exam. There is normal hepatic uptake and clearance. There is normal excretion of nuclide into the gallbladder and common bile duct. Faint small bowel activity noted. IMPRESSION: Negative examination.
--- NOTE | 2017-02-21 10:00 | Diagnostic Imaging Report ---
Portable chest x-ray HISTORY: Shortness of breath, vascular catheter placement Compared with the prior exam performed earlier in the day (0928 hours), a left side vascular catheter is been inserted. The tip extends into the superior vena cava new the junction with the left brachiocephalic vein. A previously noted right-sided vascular catheter is seen with the tip in the region of the superior vena cava. The heart is enlarged. There is persistent density in the left lower hemithorax suggesting a pleural effusion. Underlying consolidation and/or atelectasis cannot be excluded. IMPRESSION: 1. New left-sided vascular catheter placement as noted above 2. No change in the cardiopulmonary status
--- NOTE | 2017-02-21 11:33 | General Progress Note ---
Subjective - Review of Systems Events since last encounter: no changes Subjective: pt is awake denies any pain pt states she in comfortable Objective - Results Result Diagrams: 02/21/17 05:00 02/21/17 05:00 Recent Labs: Laboratory Last Values WBC 41.1 Th/cmm (4.8-10.8) H* 02/21/17 05:00 Corrected WBC (auto) 52.5 Th/cmm (4.8-10.8) H* 02/19/17 09:00 RBC 4.27 Mil/cmm (3.80-5.20) 02/21/17 05:00 Hgb 12.2 gm/dL (11.7-16.1) 02/21/17 05:00 Hct 35.7 % (35.0-45.0) 02/21/17 05:00 MCV 83.5 fl (81-100) 02/21/17 05:00 MCH 28.5 pg (27.0-31.0) 02/21/17 05:00 MCHC Differential 34.2 pg (28.0-36.0) 02/21/17 05:00 RDW 18.0 % (11.5-20.0) 02/21/17 05:00 Plt Count 349 Th/cmm (150-400) 02/21/17 05:00 MPV 8.6 fl 02/21/17 05:00 Neutrophils % 84.8 % (40.0-80.0) H 02/16/17 05:00 Band Neutrophils % 2 % (0-10) 02/20/17 06:28 Lymphocytes % 10.0 % (20.0-50.0) L 02/16/17 05:00 Monocytes % 2.7 % (2.0-10.0) 02/16/17 05:00 Eosinophils % 0.1 % (0.0-5.0) 02/16/17 05:00 Basophils % 2.4 % (0.0-2.0) H 02/16/17 05:00 Neutrophils (Manual) 89 % (40-80) H 02/21/17 05:00 Lymphocytes 10 % (20-50) L 02/21/17 05:00 Monocytes 1 % (2-10) L 02/21/17 05:00 Eosinophils 1 % (0-5) 02/15/17 05:00 Basophils 1 % (0-3) 02/09/17 20:27 Nucleated RBCs 6.0 % (0-0) H 02/19/17 09:00 Platelet Estimate ADEQUATE (NORMAL) 02/21/17 05:00 Platelet Morphology PLATELET CLUMPS SEEN (NORMAL) 02/18/17 05:55 Anisocytosis 1+ 02/18/17 05:55 RBC Morph Micro Appear ABNORMAL (NORMAL) 02/18/17 05:55 Smear Path Review YES 02/19/17 09:00 Eos Smear Source URINE 02/14/17 17:40 Eos Smear Total Cells NONE SEEN (NONE SEEN) 02/14/17 17:40 PT 15.6 SECONDS (9.5-11.5) H 02/19/17 16:04 INR 1.47 (0.5-1.4) H 02/19/17 16:04 PTT (Actin FS) 29.9 SECONDS (26.0-38.0) 02/19/17 16:04 Specimen Source Arterial 02/14/17 16:00 Sample Site Right Radial 02/14/17 16:00 pH 7.40 (7.35-7.45) 02/14/17 16:00 pCO2 33.0 mmHg (35.0-45.0) L 02/14/17 16:00 pO2 103.0 mmHg (80.0-100.0) H 02/14/17 16:00 HCO3 22.1 mEq/L (20.0-26.0) 02/14/17 16:00 Base Excess -3.6 mEq/L (-3.0-3.0) L 02/14/17 16:00 O2 Saturation 98.0 % (92.0-100.0) 02/14/17 16:00 Robin Test Positive 02/14/17 16:00 Vent Rate 12 02/14/17 16:00 Inspired O2 40 02/14/17 16:00 Tidal Volume NA 02/14/17 16:00 PEEP 6 02/14/17 16:00 Pressure (ins/psv/peep) 6 02/14/17 16:00 Critical Value LZHANG 02/14/17 16:00 Sodium 135 mEq/L (136-145) L 02/21/17 05:00 Potassium 4.0 mEq/L (3.5-5.1) 02/21/17 05:00 Chloride 101 mEq/L (98-107) 02/21/17 05:00 Carbon Dioxide 23.6 mEq/L (21.0-31.0) 02/21/17 05:00 Anion Gap 14.4 (7.0-16.0) 02/21/17 05:00 BUN 49 mg/dL (7-25) H 02/21/17 05:00 Creatinine 1.9 mg/dL (0.6-1.2) H 02/21/17 05:00 Est GFR ( Amer) 34.1 ml/min (>90) 02/21/17 05:00 Est GFR (Non-Af Amer) 28.2 ml/min 02/21/17 05:00 BUN/Creatinine Ratio 25.8 02/21/17 05:00 Glucose 109 mg/dL (70-105) H 02/21/17 05:00 POC Glucose 170 MG/DL (70 - 105) H 02/12/17 09:42 Hemoglobin A1c % 5.1 % (4.0-6.0) 02/11/17 08:11 Whole Bld Lactic Acid 1.29 mmol/L (0.60-1.99) 02/16/17 05:00 Uric Acid 11.2 mg/dL (2.3-6.6) H 02/15/17 05:00 Calcium 8.2 mg/dL (8.6-10.3) L 02/21/17 05:00 Phosphorus 3.8 mg/dL (2.5-5.0) 02/15/17 05:00 Magnesium 2.2 mg/dL (1.9-2.7) 02/19/17 05:40 Total Bilirubin 0.9 mg/dL (0.3-1.0) 02/21/17 05:00 AST 88 U/L (13-39) H 02/21/17 05:00 ALT 91 U/L (7-52) H 02/21/17 05:00 Alkaline Phosphatase 392 U/L (34-104) H 02/21/17 05:00 Creatine Kinase 67 U/L (30-223) 02/12/17 04:41 CK-MB (CK-2) 1.1 ng/mL (0.6-6.3) 02/09/17 20:27 Troponin I 0.01 ng/mL (0.01-0.05) 02/09/17 20:27 B-Natriuretic Peptide 2860.0 pg/mL (5.0-100.0) H 02/19/17 05:40 Total Protein 5.7 gm/dL (6.0-8.3) L 02/21/17 05:00 Albumin 2.8 gm/dL (3.7-5.3) L 02/21/17 05:00 Globulin 2.9 gm/dL 02/21/17 05:00 Albumin/Globulin Ratio 1.0 (1.0-1.8) 02/21/17 05:00 Amylase 23 U/L (29-103) L 02/13/17 05:03 Lipase 13 U/L (11-82) 02/13/17 05:03 Urine Source ZEE PORT 02/14/17 17:40 Urine Color YELLOW 02/14/17 17:40 Urine Clarity SLIGHT HAZY (CLEAR) 02/14/17 17:40 Urine pH 5.5 02/14/17 17:40 Ur Specific [place] 1.020 (1.005-1.030) 02/14/17 17:40 Urine Protein 100 mg/dL (NEGATIVE) H 02/14/17 17:40 Urine Glucose (UA) NEGATIVE mg/dL (NEGATIVE) 02/14/17 17:40 Urine Ketones NEGATIVE mg/dL (NEGATIVE) 02/14/17 17:40 Urine Blood MODERATE (NEGATIVE) H 02/14/17 17:40 Urine Nitrate NEGATIVE (NEGATIVE) 02/14/17 17:40 Urine Bilirubin NEGATIVE (NEGATIVE) 02/14/17 17:40 Urine Urobilinogen 0.2 E.U./dL (0.2 - 1.0) 02/14/17 17:40 Ur Leukocyte Esterase NEGATIVE (NEGATIVE) 02/14/17 17:40 Urine RBC 2-5 /hpf (0-5) 02/14/17 17:40 Urine WBC 2-5 /hpf (0-5) 02/14/17 17:40 Ur Epithelial Cells FEW /lpf (FEW) 02/14/17 17:40 Amorphous Sediment MANY URATES (NONE SEEN) 02/14/17 17:40 Urine Bacteria MODERATE /hpf (NONE SEEN) 02/14/17 17:40 Hyaline Casts 0-2 /lpf (0-2) H 02/09/17 21:05 Urine Yeast FEW /hpf (NONE SEEN) H 02/14/17 17:40 Ur Random Sodium 37 mmol/L 02/14/17 17:40 Urine Creatinine 32.9 mg/dl (Not Estab.) 02/14/17 21:55 Urine Microalbumin 332.1 ug/mL (Not Estab.) 02/14/17 21:55 Microalb/Creat Ratio 1009.4 mg/g creat (0.0-30.0) H 02/14/17 21:55 Stool Leukocyte NO WBC SEEN 02/12/17 00:05 Hepatitis A IgM Ab Negative (Negative) 02/19/17 06:00 Hep Bs Antigen Negative (Negative) 02/19/17 06:00 Hep B Core IgM Ab Negative (Negative) 02/19/17 06:00 Hepatitis C Antibody 0.1 s/co ratio (0.0-0.9) 02/19/17 06:00 - Physical Exam Vitals and I&O: Vital Signs Temp 96.8 F 02/21/17 08:13 Pulse 89 02/21/17 08:40 Resp 19 02/21/17 09:57 BP 112/76 02/21/17 08:54 Pulse Ox 97 02/21/17 08:40 Intake & Output 02/20/17 02/21/17 02/21/17 18:59 06:59 18:59 Intake Total 400 300 100 Output Total 3400 1350 Balance -3000 -1050 100 Weight (lbs) 80.286 kg 79.832 kg Intake: Intake, IV Amount 100 200 100 Piperacillin Sodium/ 100 Tazobact 2.25 gm In Sodium Chloride 0.9% 50 ml @ 100 mls/hr IV Q6HR PATR[facility] Rx#:[id number] metroNIDAZOLE 500mg/NS 100 100 100 100mL 500 mg In 100 ml @ 100 mls/hr IV Q8HR PATRICIA Rx #:[id number] Oral 300 100 Output: Urine 3400 1350 Other: # Bowel Movements 1 1 Active Medications: Current Medications Acetaminophen (Tylenol) 650 mg PO Q4HR PRN PRN Reason: TEMP >100 OR PAIN Stop: 04/11/17 15:21 Acetaminophen/Codeine Phosphate (Tylenol W/Codeine #3) 1 tab PO Q6HR PRN PRN Reason: MODERATE PAIN Stop: 04/11/17 15:21 Last Admin: 02/18/17 05:19 Dose: 1 tab Acetaminophen/Hydrocodone Bitart ([place] 5mg/325mg) 2 tab PO Q4H PRN PRN Reason: Severe Pain Stop: 04/11/17 15:21 Last Admin: 02/18/17 08:48 Dose: 2 tab Albuterol Sulfate (Albuterol 2.5mg/3ml Neb Ud) 2.5 mg HHN Q4HRT PRN PRN Reason: Wheezing Stop: 04/13/17 08:21 Last Admin: 02/17/17 19:36 Dose: 2.5 mg Ascorbic Acid (Vitamin C) 500 mg PO DAILY PATRICIA Stop: 04/12/17 08:59 Last Admin: 02/21/17 08:54 Dose: 500 mg Atorvastatin Calcium (Lipitor) 10 mg PO HS PATRICIA PRN Reason: Protocol Stop: 04/11/17 20:59 Last Admin: 02/20/17 22:12 Dose: 10 mg Furosemide (Lasix) 40 mg IVP BID PATRICIA Stop: 04/19/17 16:59 Last Admin: 02/21/17 08:54 Dose: 40 mg Sodium Chloride (Nacl 0.45%) 1,000 mls @ 0 mls/hr IV .Q0M PATRICIA PRN Reason: KVO Stop: 04/15/17 10:13 Last Admin: 02/14/17 11:04 Dose: 10 mls/hr Metronidazole (Flagyl) 500 mg in 100 mls @ 100 mls/hr IV Q8HR PATRICIA Stop: 04/19/17 21:59 Last Infusion: 02/21/17 07:03 Dose: Infused Piperacillin Sod/Tazobactam (Sod 2.25 gm/ Sodium Chloride) 50 mls @ 100 mls/hr IV Q6HR PATRICIA Stop: 04/21/17 17:59 Last Infusion: 02/21/17 05:44 Dose: Infused Methylprednisolone Sodium Succinate (Solu-Medrol) 20 mg IVP Q8HR PATRICIA Stop: 04/14/17 12:59 Last Admin: 02/21/17 04:44 Dose: 20 mg Miscellaneous (Probiotic Screen) 1 ea MC PRN PRN PRN Reason: PROTOCOL Stop: 04/12/17 09:13 Miscellaneous (Clinical Monitoring) 1 ea MC DAILY PRN PRN Reason: RENAL Stop: 04/19/17 12:28 Ondansetron HCl (Zofran) 4 mg IV Q8H PRN PRN Reason: Nausea / Vomiting Stop: 04/11/17 08:23 Last Admin: 02/16/17 09:10 Dose: 4 mg Pantoprazole Sodium (Protonix) 40 mg PO DAILY PATRICIA Stop: 04/12/17 08:59 Last Admin: 02/21/17 08:54 Dose: 40 mg Potassium Chloride (Klor-Con) 20 meq PO DAILY PATRICIA Stop: 04/17/17 08:59 Last Admin: 02/21/17 08:54 Dose: 20 meq General: Alert, Mild distress HEENT: Atraumatic, PERRLA, EOMI, Mucous membr. moist/pink Neck: Supple, +2 carotid pulse wo bruit Cardiovascular: Regular rate, Normal S1, Normal S2 Lungs: Other (few rhonchi) Abdomen: Bowel sounds, Soft Extremities: no Edema Neurological: Sensation intact Skin: no Rash Psych/Mental Status: Mood NL - Procedures Procedures: Procedures Procedure Code Date INSERT TUNNELED CV CATH [id number] 02/09/17 INSERTION OF INFUSION DEV INTO L SUBCLAV VEIN, PERC APPROACH 32J131P 02/09/17 Assessment/Plan - Problem List Patient Problems: All Active Problems NAUSEA AND VOMITING WITH DEHYDRATION (Acute) sepsis (Acute) Sepsis affecting skin (Acute) L02.91 - Assessment Assessment: Current Active Problems Problem Status Onset NAUSEA AND VOMITING WITH DEHYDRATION Acute leukocytosis distended gall bladder r/o chelocystitis trachycardia - Plan Plan: cpm Nutritional Asmnt/Malnutr-PDOC - Dietary Evaluation Malnutrition Findings (Please click <Entered> for more info): Nutritional Asmnt/Malnutrition Start: 02/14/17 13: 04 Text: Status: Complete Freq: Document 02/14/17 13:05 GSUN (Rec: 02/14/17 13:21 GSCB [id number]) Nutritional Asmnt/Malnutrition Patient General Information Nutritional Screening Moderate Risk Screening Pertinent Medical Hx/Surgical Hx Dx: Septic shock, hypotension, dehydration, metabolic acidosis improved, SU ?ATN, suspect aspiration PNA HTN, left knee prothesis, dyslipidemia, anemia Subjective Information 66 year old female, Icelandic speaking. Pt was receiving breathing treatment during [facility] visit. Observed clear liquid tray at bedside. progress note 7/9: DC NG tube and start PO as tolerated. Spoke to RN STEFANIE Mayorga stated for breakfast pt tolerated 2 juices, declined broth, RN will remove mask and encourage lunch shortly. No significant wasting noted. 02/11 KUB: mild ielus. Current Diet Order/ Nutrition Support Clear liquid Pertinent Medications Vitamin C, Lipitor, Culturelle , Solu-Medrol, Zofran, Protonix, Nacl 0.45% Pertinent Labs 02/13: potassium 3L 02/14: BUN 30H, creatinine 1.8H (declining) Nutritional Hx/Data Height 1.68 m Height (Calculated Centimeters) 167.6 Current Weight (lbs) 75.75 kg Weight (Calculated Kilograms) 75.7 Weight (Calculated Grams) 65504.9 [place] Body Weight 130 Weight Status Overweight GI Symptoms Skin Integrity/Comment: Josias 14. Non-pitting edema bilateral feet. assessment manager: skin tears. Estimated Nutritional Goals Calories/Kcals/Kg IBW 130lb/59.1kg Kcals Calculated 1478-1773kcal (25-30kcal/kg) Protein Calculated 59g (1g/kg) Fluid: ml 1478-1773ml (1ml/kcal) Nutritional Problem 1. Problem Problem Impaired nutrient utilization related to Etiology renal dysfunction, per MD note SU ?ATN Signs/Symptoms: BUN 30H, creatinine 1.8H Intervention/Recommendation Comments 1. Recommend advance diet as tolerated to low sodium diet, to aid in renal function. No renal restriction due to hx of hypokalemia. Expected Outcomes/Goals Expected Outcomes/Goals 1. Pt to resume diet and meet at least 75% fo estimated nutritional needs.
--- NOTE | 2017-02-21 12:12 | General Progress Note ---
Subjective - Review of Systems Service Date: 02/21/17 Objective - Results Result Diagrams: 02/21/17 05:00 02/21/17 05:00 Recent Labs: Laboratory Last Values WBC 41.1 Th/cmm (4.8-10.8) H* 02/21/17 05:00 Corrected WBC (auto) 52.5 Th/cmm (4.8-10.8) H* 02/19/17 09:00 RBC 4.27 Mil/cmm (3.80-5.20) 02/21/17 05:00 Hgb 12.2 gm/dL (11.7-16.1) 02/21/17 05:00 Hct 35.7 % (35.0-45.0) 02/21/17 05:00 MCV 83.5 fl (81-100) 02/21/17 05:00 MCH 28.5 pg (27.0-31.0) 02/21/17 05:00 MCHC Differential 34.2 pg (28.0-36.0) 02/21/17 05:00 RDW 18.0 % (11.5-20.0) 02/21/17 05:00 Plt Count 349 Th/cmm (150-400) 02/21/17 05:00 MPV 8.6 fl 02/21/17 05:00 Neutrophils % 84.8 % (40.0-80.0) H 02/16/17 05:00 Band Neutrophils % 2 % (0-10) 02/20/17 06:28 Lymphocytes % 10.0 % (20.0-50.0) L 02/16/17 05:00 Monocytes % 2.7 % (2.0-10.0) 02/16/17 05:00 Eosinophils % 0.1 % (0.0-5.0) 02/16/17 05:00 Basophils % 2.4 % (0.0-2.0) H 02/16/17 05:00 Neutrophils (Manual) 89 % (40-80) H 02/21/17 05:00 Lymphocytes 10 % (20-50) L 02/21/17 05:00 Monocytes 1 % (2-10) L 02/21/17 05:00 Eosinophils 1 % (0-5) 02/15/17 05:00 Basophils 1 % (0-3) 02/09/17 20:27 Nucleated RBCs 6.0 % (0-0) H 02/19/17 09:00 Platelet Estimate ADEQUATE (NORMAL) 02/21/17 05:00 Platelet Morphology PLATELET CLUMPS SEEN (NORMAL) 02/18/17 05:55 Anisocytosis 1+ 02/18/17 05:55 RBC Morph Micro Appear ABNORMAL (NORMAL) 02/18/17 05:55 Smear Path Review YES 02/19/17 09:00 Eos Smear Source URINE 02/14/17 17:40 Eos Smear Total Cells NONE SEEN (NONE SEEN) 02/14/17 17:40 PT 15.6 SECONDS (9.5-11.5) H 02/19/17 16:04 INR 1.47 (0.5-1.4) H 02/19/17 16:04 PTT (Actin FS) 29.9 SECONDS (26.0-38.0) 02/19/17 16:04 Specimen Source Arterial 02/14/17 16:00 Sample Site Right Radial 02/14/17 16:00 pH 7.40 (7.35-7.45) 02/14/17 16:00 pCO2 33.0 mmHg (35.0-45.0) L 02/14/17 16:00 pO2 103.0 mmHg (80.0-100.0) H 02/14/17 16:00 HCO3 22.1 mEq/L (20.0-26.0) 02/14/17 16:00 Base Excess -3.6 mEq/L (-3.0-3.0) L 02/14/17 16:00 O2 Saturation 98.0 % (92.0-100.0) 02/14/17 16:00 Robin Test Positive 02/14/17 16:00 Vent Rate 12 02/14/17 16:00 Inspired O2 40 02/14/17 16:00 Tidal Volume NA 02/14/17 16:00 PEEP 6 02/14/17 16:00 Pressure (ins/psv/peep) 6 02/14/17 16:00 Critical Value LZHANG 02/14/17 16:00 Sodium 135 mEq/L (136-145) L 02/21/17 05:00 Potassium 4.0 mEq/L (3.5-5.1) 02/21/17 05:00 Chloride 101 mEq/L (98-107) 02/21/17 05:00 Carbon Dioxide 23.6 mEq/L (21.0-31.0) 02/21/17 05:00 Anion Gap 14.4 (7.0-16.0) 02/21/17 05:00 BUN 49 mg/dL (7-25) H 02/21/17 05:00 Creatinine 1.9 mg/dL (0.6-1.2) H 02/21/17 05:00 Est GFR ( Amer) 34.1 ml/min (>90) 02/21/17 05:00 Est GFR (Non-Af Amer) 28.2 ml/min 02/21/17 05:00 BUN/Creatinine Ratio 25.8 02/21/17 05:00 Glucose 109 mg/dL (70-105) H 02/21/17 05:00 POC Glucose 170 MG/DL (70 - 105) H 02/12/17 09:42 Hemoglobin A1c % 5.1 % (4.0-6.0) 02/11/17 08:11 Whole Bld Lactic Acid 1.29 mmol/L (0.60-1.99) 02/16/17 05:00 Uric Acid 11.2 mg/dL (2.3-6.6) H 02/15/17 05:00 Calcium 8.2 mg/dL (8.6-10.3) L 02/21/17 05:00 Phosphorus 3.8 mg/dL (2.5-5.0) 02/15/17 05:00 Magnesium 2.2 mg/dL (1.9-2.7) 02/19/17 05:40 Total Bilirubin 0.9 mg/dL (0.3-1.0) 02/21/17 05:00 AST 88 U/L (13-39) H 02/21/17 05:00 ALT 91 U/L (7-52) H 02/21/17 05:00 Alkaline Phosphatase 392 U/L (34-104) H 02/21/17 05:00 Creatine Kinase 67 U/L (30-223) 02/12/17 04:41 CK-MB (CK-2) 1.1 ng/mL (0.6-6.3) 02/09/17 20:27 Troponin I 0.01 ng/mL (0.01-0.05) 02/09/17 20:27 B-Natriuretic Peptide 2860.0 pg/mL (5.0-100.0) H 02/19/17 05:40 Total Protein 5.7 gm/dL (6.0-8.3) L 02/21/17 05:00 Albumin 2.8 gm/dL (3.7-5.3) L 02/21/17 05:00 Globulin 2.9 gm/dL 02/21/17 05:00 Albumin/Globulin Ratio 1.0 (1.0-1.8) 02/21/17 05:00 Amylase 23 U/L (29-103) L 02/13/17 05:03 Lipase 13 U/L (11-82) 02/13/17 05:03 Urine Source ZEE PORT 02/14/17 17:40 Urine Color YELLOW 02/14/17 17:40 Urine Clarity SLIGHT HAZY (CLEAR) 02/14/17 17:40 Urine pH 5.5 02/14/17 17:40 Ur Specific [place] 1.020 (1.005-1.030) 02/14/17 17:40 Urine Protein 100 mg/dL (NEGATIVE) H 02/14/17 17:40 Urine Glucose (UA) NEGATIVE mg/dL (NEGATIVE) 02/14/17 17:40 Urine Ketones NEGATIVE mg/dL (NEGATIVE) 02/14/17 17:40 Urine Blood MODERATE (NEGATIVE) H 02/14/17 17:40 Urine Nitrate NEGATIVE (NEGATIVE) 02/14/17 17:40 Urine Bilirubin NEGATIVE (NEGATIVE) 02/14/17 17:40 Urine Urobilinogen 0.2 E.U./dL (0.2 - 1.0) 02/14/17 17:40 Ur Leukocyte Esterase NEGATIVE (NEGATIVE) 02/14/17 17:40 Urine RBC 2-5 /hpf (0-5) 02/14/17 17:40 Urine WBC 2-5 /hpf (0-5) 02/14/17 17:40 Ur Epithelial Cells FEW /lpf (FEW) 02/14/17 17:40 Amorphous Sediment MANY URATES (NONE SEEN) 02/14/17 17:40 Urine Bacteria MODERATE /hpf (NONE SEEN) 02/14/17 17:40 Hyaline Casts 0-2 /lpf (0-2) H 02/09/17 21:05 Urine Yeast FEW /hpf (NONE SEEN) H 02/14/17 17:40 Ur Random Sodium 37 mmol/L 02/14/17 17:40 Urine Creatinine 32.9 mg/dl (Not Estab.) 02/14/17 21:55 Urine Microalbumin 332.1 ug/mL (Not Estab.) 02/14/17 21:55 Microalb/Creat Ratio 1009.4 mg/g creat (0.0-30.0) H 02/14/17 21:55 Stool Leukocyte NO WBC SEEN 02/12/17 00:05 Hepatitis A IgM Ab Negative (Negative) 02/19/17 06:00 Hep Bs Antigen Negative (Negative) 02/19/17 06:00 Hep B Core IgM Ab Negative (Negative) 02/19/17 06:00 Hepatitis C Antibody 0.1 s/co ratio (0.0-0.9) 02/19/17 06:00 - Physical Exam Vitals and I&O: Vital Signs Temp 97.8 F 02/21/17 12:00 Pulse 76 02/21/17 12:00 Resp 20 02/21/17 12:00 BP 102/75 02/21/17 12:00 Pulse Ox 99 02/21/17 12:00 Intake & Output 02/20/17 02/21/17 02/21/17 18:59 06:59 18:59 Intake Total 400 300 100 Output Total 3400 1350 Balance -3000 -1050 100 Weight (lbs) 80.286 kg 79.832 kg Intake: Intake, IV Amount 100 200 100 Piperacillin Sodium/ 100 Tazobact 2.25 gm In Sodium Chloride 0.9% 50 ml @ 100 mls/hr IV Q6HR PATRICIA Rx#:[id number] metroNIDAZOLE 500mg/NS 100 100 100 100mL 500 mg In 100 ml @ 100 mls/hr IV Q8HR PATRICIA Rx #:[id number] Oral 300 100 Output: Urine 3400 1350 Other: # Bowel Movements 1 1 Active Medications: Current Medications Acetaminophen (Tylenol) 650 mg PO Q4HR PRN PRN Reason: TEMP >100 OR PAIN Stop: 04/11/17 15:21 Acetaminophen/Codeine Phosphate (Tylenol W/Codeine #3) 1 tab PO Q6HR PRN PRN Reason: MODERATE PAIN Stop: 04/11/17 15:21 Last Admin: 02/18/17 05:19 Dose: 1 tab Acetaminophen/Hydrocodone Bitart ([place] 5mg/325mg) 2 tab PO Q4H PRN PRN Reason: Severe Pain Stop: 04/11/17 15:21 Last Admin: 02/18/17 08:48 Dose: 2 tab Albuterol Sulfate (Albuterol 2.5mg/3ml Neb Ud) 2.5 mg HHN Q4HRT PRN PRN Reason: Wheezing Stop: 04/13/17 08:21 Last Admin: 02/17/17 19:36 Dose: 2.5 mg Ascorbic Acid (Vitamin C) 500 mg PO DAILY PATRICIA Stop: 04/12/17 08:59 Last Admin: 02/21/17 08:54 Dose: 500 mg Atorvastatin Calcium (Lipitor) 10 mg PO HS PATRICIA PRN Reason: Protocol Stop: 04/11/17 20:59 Last Admin: 02/20/17 22:12 Dose: 10 mg Furosemide (Lasix) 40 mg IVP BID PATRICIA Stop: 04/19/17 16:59 Last Admin: 02/21/17 08:54 Dose: 40 mg Sodium Chloride (Nacl 0.45%) 1,000 mls @ 0 mls/hr IV .Q0M PATRICIA PRN Reason: KVO Stop: 04/15/17 10:13 Last Admin: 02/14/17 11:04 Dose: 10 mls/hr Metronidazole (Flagyl) 500 mg in 100 mls @ 100 mls/hr IV Q8HR PATRICIA Stop: 04/19/17 21:59 Last Infusion: 02/21/17 07:03 Dose: Infused Piperacillin Sod/Tazobactam (Sod 2.25 gm/ Sodium Chloride) 50 mls @ 100 mls/hr IV Q6HR PATRICIA Stop: 04/21/17 17:59 Last Admin: 02/21/17 11:46 Dose: 100 mls/hr Methylprednisolone Sodium Succinate (Solu-Medrol) 20 mg IVP Q8HR PATRICIA Stop: 04/14/17 12:59 Last Admin: 02/21/17 04:44 Dose: 20 mg Miscellaneous (Probiotic Screen) 1 ea PRN PRN PRN Reason: PROTOCOL Stop: 04/12/17 09:13 Miscellaneous (Clinical Monitoring) 1 ea DAILY PRN PRN Reason: RENAL Stop: 04/19/17 12:28 Ondansetron HCl (Zofran) 4 mg IV Q8H PRN PRN Reason: Nausea / Vomiting Stop: 04/11/17 08:23 Last Admin: 02/16/17 09:10 Dose: 4 mg Pantoprazole Sodium (Protonix) 40 mg PO DAILY [facility] Stop: 04/12/17 08:59 Last Admin: 02/21/17 08:54 Dose: 40 mg Potassium Chloride (Klor-Con) 20 meq PO DAILY PATRICIA Stop: 04/17/17 08:59 Last Admin: 02/21/17 08:54 Dose: 20 meq General: Alert, Mild distress HEENT: Atraumatic, PERRLA, EOMI, Mucous membr. moist/pink Neck: Supple, +2 carotid pulse wo bruit Cardiovascular: Regular rate, Normal S1, Normal S2 Lungs: Other (few rhonchi) Abdomen: Bowel sounds, Soft Extremities: no Edema Neurological: Sensation intact Skin: no Rash Psych/Mental Status: Mood NL - Procedures Procedures: Procedures Procedure Code Date INSERT TUNNELED CV CATH [id number] 02/09/17 INSERTION OF INFUSION DEV INTO L SUBCLAV VEIN, PERC APPROACH [id number] 02/09/17 Assessment/Plan - Problem List Patient Problems: All Active Problems NAUSEA AND VOMITING WITH DEHYDRATION (Acute) sepsis (Acute) Sepsis affecting skin (Acute) L02.91 - Assessment Assessment: * Reactive leukocytosis * 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 DVT proph Nutritional Asmnt/Malnutr-PDOC - Dietary Evaluation Malnutrition Findings (Please click <Entered> for more info): Nutritional Asmnt/Malnutrition Start: 02/14/17 13: 04 Text: Status: Complete Freq: Document 02/14/17 13:05 GSUN (Rec: 02/14/17 13:21 GSUN [id number]) Nutritional Asmnt/Malnutrition Patient General Information Nutritional Screening Moderate Risk Screening Pertinent Medical Hx/Surgical Hx Dx: Septic shock, hypotension, dehydration, metabolic acidosis improved, SU ?ATN, suspect aspiration PNA HTN, left knee prothesis, dyslipidemia, anemia Subjective Information 66 year old female, [place] speaking. Pt was receiving breathing treatment during community health visit. Observed clear liquid tray at bedside. progress note 02/13: DC NG tube and start PO as tolerated. Spoke to RN Tierra, RN stated for breakfast pt tolerated 2 juices, declined broth, RN will remove mask and encourage lunch shortly. No significant wasting noted. 02/11 KUB: mild ielus. Current Diet Order/ Nutrition Support Clear liquid Pertinent Medications Vitamin C, Lipitor, Culturelle , Solu-Medrol, Zofran, Protonix, Nacl 0.45% Pertinent Labs 02/13: potassium 3L 02/14: BUN 30H, creatinine 1.8H (declining) Nutritional Hx/Data Height 1.68 m Height (Calculated Centimeters) 167.6 Current Weight (lbs) 75.75 kg Weight (Calculated Kilograms) 75.7 Weight (Calculated Grams) 28101.9 [place] Body Weight 130 Weight Status Overweight GI Symptoms Skin Integrity/Comment: Josias 14. Non-pitting edema bilateral feet. 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 Estimated Nutritional Goals Calories/Kcals/Kg IBW 130lb/59.1kg Kcals Calculated 1478-1773kcal (25-30kcal/kg) Protein Calculated 59g (1g/kg) Fluid: ml 1478-1773ml (1ml/kcal) Nutritional Problem 1. Problem Problem Impaired nutrient utilization related to Etiology renal dysfunction, per MD note SU ?ATN Signs/Symptoms: BUN 30H, creatinine 1.8H Intervention/Recommendation Comments 1. Recommend advance diet as tolerated to low sodium diet, to aid in renal function. No renal restriction due to hx of hypokalemia. Expected Outcomes/Goals Expected Outcomes/Goals 1. Pt to resume diet and meet at least 75% fo estimated nutritional needs.
--- NOTE | 2017-02-21 12:21 | Infectious Disease Prog Note ---
Infectious Disease Subjective - Review of Systems Service Date: 02/21/17 Subjective: There is no new change, no fever. No more nausea and vomiting. No diarhea. Patient WBC count went up to 55k and today went down to 46K. CT of the abd and pelvis performed and it suspected cholecystitis and colitis. It has suggested B/l pneumonia. Yesterday, the Jairo cath was placed in left subclavian and had first dialysis performed for Congestion. Infectious Disease Objective - Results Result Diagrams: 02/23/17 05:40 02/23/17 05:40 Recent Labs: Laboratory Last Values WBC 41.1 Th/cmm (4.8-10.8) H* 02/21/17 05:00 Corrected WBC (auto) 52.5 Th/cmm (4.8-10.8) H* 02/19/17 09:00 RBC 4.27 Mil/cmm (3.80-5.20) 02/21/17 05:00 Hgb 12.2 gm/dL (11.7-16.1) 02/21/17 05:00 Hct 35.7 % (35.0-45.0) 02/21/17 05:00 MCV 83.5 fl (81-100) 02/21/17 05:00 MCH 28.5 pg (27.0-31.0) 02/21/17 05:00 MCHC Differential 34.2 pg (28.0-36.0) 02/21/17 05:00 RDW 18.0 % (11.5-20.0) 02/21/17 05:00 Plt Count 349 Th/cmm (150-400) 02/21/17 05:00 MPV 8.6 fl 02/21/17 05:00 Neutrophils % 84.8 % (40.0-80.0) H 02/16/17 05:00 Band Neutrophils % 2 % (0-10) 02/20/17 06:28 Lymphocytes % 10.0 % (20.0-50.0) L 02/16/17 05:00 Monocytes % 2.7 % (2.0-10.0) 02/16/17 05:00 Eosinophils % 0.1 % (0.0-5.0) 02/16/17 05:00 Basophils % 2.4 % (0.0-2.0) H 02/16/17 05:00 Neutrophils (Manual) 89 % (40-80) H 02/21/17 05:00 Lymphocytes 10 % (20-50) L 02/21/17 05:00 Monocytes 1 % (2-10) L 02/21/17 05:00 Eosinophils 1 % (0-5) 02/15/17 05:00 Basophils 1 % (0-3) 02/09/17 20:27 Nucleated RBCs 6.0 % (0-0) H 02/19/17 09:00 Platelet Estimate ADEQUATE (NORMAL) 02/21/17 05:00 Platelet Morphology PLATELET CLUMPS SEEN (NORMAL) 02/18/17 05:55 Anisocytosis 1+ 02/18/17 05:55 RBC Morph Micro Appear ABNORMAL (NORMAL) 02/18/17 05:55 Smear Path Review YES 02/19/17 09:00 Eos Smear Source URINE 02/14/17 17:40 Eos Smear Total Cells NONE SEEN (NONE SEEN) 02/14/17 17:40 PT 15.6 SECONDS (9.5-11.5) H 02/19/17 16:04 INR 1.47 (0.5-1.4) H 02/19/17 16:04 PTT (Actin FS) 29.9 SECONDS (26.0-38.0) 02/19/17 16:04 Specimen Source Arterial 02/14/17 16:00 Sample Site Right Radial 02/14/17 16:00 pH 7.40 (7.35-7.45) 02/14/17 16:00 pCO2 33.0 mmHg (35.0-45.0) L 02/14/17 16:00 pO2 103.0 mmHg (80.0-100.0) H 02/14/17 16:00 HCO3 22.1 mEq/L (20.0-26.0) 02/14/17 16:00 Base Excess -3.6 mEq/L (-3.0-3.0) L 02/14/17 16:00 O2 Saturation 98.0 % (92.0-100.0) 02/14/17 16:00 Robin Test Positive 02/14/17 16:00 Vent Rate 12 02/14/17 16:00 Inspired O2 40 02/14/17 16:00 Tidal Volume NA 02/14/17 16:00 PEEP 6 02/14/17 16:00 Pressure (ins/psv/peep) 6 02/14/17 16:00 Critical Value LZHANG 02/14/17 16:00 Sodium 135 mEq/L (136-145) L 02/21/17 05:00 Potassium 4.0 mEq/L (3.5-5.1) 02/21/17 05:00 Chloride 101 mEq/L (98-107) 02/21/17 05:00 Carbon Dioxide 23.6 mEq/L (21.0-31.0) 02/21/17 05:00 Anion Gap 14.4 (7.0-16.0) 02/21/17 05:00 BUN 49 mg/dL (7-25) H 02/21/17 05:00 Creatinine 1.9 mg/dL (0.6-1.2) H 02/21/17 05:00 Est GFR ( Amer) 34.1 ml/min (>90) 02/21/17 05:00 Est GFR (Non-Af Amer) 28.2 ml/min 02/21/17 05:00 BUN/Creatinine Ratio 25.8 02/21/17 05:00 Glucose 109 mg/dL (70-105) H 02/21/17 05:00 POC Glucose 170 MG/DL (70 - 105) H 02/12/17 09:42 Hemoglobin A1c % 5.1 % (4.0-6.0) 02/11/17 08:11 Whole Bld Lactic Acid 1.29 mmol/L (0.60-1.99) 02/16/17 05:00 Uric Acid 11.2 mg/dL (2.3-6.6) H 02/15/17 05:00 Calcium 8.2 mg/dL (8.6-10.3) L 02/21/17 05:00 Phosphorus 3.8 mg/dL (2.5-5.0) 02/15/17 05:00 Magnesium 2.2 mg/dL (1.9-2.7) 02/19/17 05:40 Total Bilirubin 0.9 mg/dL (0.3-1.0) 02/21/17 05:00 AST 88 U/L (13-39) H 02/21/17 05:00 ALT 91 U/L (7-52) H 02/21/17 05:00 Alkaline Phosphatase 392 U/L (34-104) H 02/21/17 05:00 Creatine Kinase 67 U/L (30-223) 02/12/17 04:41 CK-MB (CK-2) 1.1 ng/mL (0.6-6.3) 02/09/17 20:27 Troponin I 0.01 ng/mL (0.01-0.05) 02/09/17 20:27 B-Natriuretic Peptide 2860.0 pg/mL (5.0-100.0) H 02/19/17 05:40 Total Protein 5.7 gm/dL (6.0-8.3) L 02/21/17 05:00 Albumin 2.8 gm/dL (3.7-5.3) L 02/21/17 05:00 Globulin 2.9 gm/dL 02/21/17 05:00 Albumin/Globulin Ratio 1.0 (1.0-1.8) 02/21/17 05:00 Amylase 23 U/L (29-103) L 02/13/17 05:03 Lipase 13 U/L (11-82) 02/13/17 05:03 Urine Source ZEE PORT 02/14/17 17:40 Urine Color YELLOW 02/14/17 17:40 Urine Clarity SLIGHT HAZY (CLEAR) 02/14/17 17:40 Urine pH 5.5 02/14/17 17:40 Ur Specific Brave 1.020 (1.005-1.030) 02/14/17 17:40 Urine Protein 100 mg/dL (NEGATIVE) H 02/14/17 17:40 Urine Glucose (UA) NEGATIVE mg/dL (NEGATIVE) 02/14/17 17:40 Urine Ketones NEGATIVE mg/dL (NEGATIVE) 02/14/17 17:40 Urine Blood MODERATE (NEGATIVE) H 02/14/17 17:40 Urine Nitrate NEGATIVE (NEGATIVE) 02/14/17 17:40 Urine Bilirubin NEGATIVE (NEGATIVE) 02/14/17 17:40 Urine Urobilinogen 0.2 E.U./dL (0.2 - 1.0) 02/14/17 17:40 Ur Leukocyte Esterase NEGATIVE (NEGATIVE) 02/14/17 17:40 Urine RBC 2-5 /hpf (0-5) 02/14/17 17:40 Urine WBC 2-5 /hpf (0-5) 02/14/17 17:40 Ur Epithelial Cells FEW /lpf (FEW) 02/14/17 17:40 Amorphous Sediment MANY URATES (NONE SEEN) 02/14/17 17:40 Urine Bacteria MODERATE /hpf (NONE SEEN) 02/14/17 17:40 Hyaline Casts 0-2 /lpf (0-2) H 02/09/17 21:05 Urine Yeast FEW /hpf (NONE SEEN) H 02/14/17 17:40 Ur Random Sodium 37 mmol/L 02/14/17 17:40 Urine Creatinine 32.9 mg/dl (Not Estab.) 02/14/17 21:55 Urine Microalbumin 332.1 ug/mL (Not Estab.) 02/14/17 21:55 Microalb/Creat Ratio 1009.4 mg/g creat (0.0-30.0) H 02/14/17 21:55 Stool Leukocyte NO WBC SEEN 02/12/17 00:05 Hepatitis A IgM Ab Negative (Negative) 02/19/17 06:00 Hep Bs Antigen Negative (Negative) 02/19/17 06:00 Hep B Core IgM Ab Negative (Negative) 02/19/17 06:00 Hepatitis C Antibody 0.1 s/co ratio (0.0-0.9) 02/19/17 06:00 - Physical Exam Vitals and I&O: Vital Signs Temp 97.8 F 02/21/17 12:00 Pulse 76 02/21/17 12:00 Resp 20 02/21/17 12:00 BP 102/75 02/21/17 12:00 Pulse Ox 99 02/21/17 12:00 Intake & Output 02/20/17 02/21/17 02/21/17 18:59 06:59 18:59 Intake Total 400 300 100 Output Total 3400 1350 Balance -3000 -1050 100 Weight (lbs) 80.286 kg 79.832 kg Intake: Intake, IV Amount 100 200 100 Piperacillin Sodium/ 100 Tazobact 2.25 gm In Sodium Chloride 0.9% 50 ml @ 100 mls/hr IV Q6HR PATRICIA Rx#:[id number] metroNIDAZOLE 500mg/NS 100 100 100 100mL 500 mg In 100 ml @ 100 mls/hr IV Q8HR PATRICIA Rx #:[id number] Oral 300 100 Output: Urine 3400 1350 Other: # Bowel Movements 1 1 Active Medications: Current Medications Acetaminophen (Tylenol) 650 mg PO Q4HR PRN PRN Reason: TEMP >100 OR PAIN Stop: 04/11/17 15:21 Acetaminophen/Codeine Phosphate (Tylenol W/Codeine #3) 1 tab PO Q6HR PRN PRN Reason: MODERATE PAIN Stop: 04/11/17 15:21 Last Admin: 02/18/17 05:19 Dose: 1 tab Acetaminophen/Hydrocodone Bitart ([place] 5mg/325mg) 2 tab PO Q4H PRN PRN Reason: Severe Pain Stop: 04/11/17 15:21 Last Admin: 02/18/17 08:48 Dose: 2 tab Albuterol Sulfate (Albuterol 2.5mg/3ml Neb Ud) 2.5 mg HHN Q4HRT PRN PRN Reason: Wheezing Stop: 04/13/17 08:21 Last Admin: 02/17/17 19:36 Dose: 2.5 mg Ascorbic Acid (Vitamin C) 500 mg PO DAILY PATRICIA Stop: 04/12/17 08:59 Last Admin: 02/21/17 08:54 Dose: 500 mg Atorvastatin Calcium (Lipitor) 10 mg PO HS PATRICIA PRN Reason: Protocol Stop: 04/11/17 20:59 Last Admin: 02/20/17 22:12 Dose: 10 mg Furosemide (Lasix) 40 mg IVP BID PATRICIA Stop: 04/19/17 16:59 Last Admin: 02/21/17 08:54 Dose: 40 mg Heparin Sodium (Porcine) (Heparin) 5,000 units SUBQ Q12HR PATRICIA Stop: 04/22/17 20:59 Sodium Chloride (Nacl 0.45%) 1,000 mls @ 0 mls/hr IV .Q0M PATRICIA PRN Reason: KVO Stop: 04/15/17 10:13 Last Admin: 02/14/17 11:04 Dose: 10 mls/hr Metronidazole (Flagyl) 500 mg in 100 mls @ 100 mls/hr IV Q8HR PATRICIA Stop: 04/19/17 21:59 Last Infusion: 02/21/17 07:03 Dose: Infused Piperacillin Sod/Tazobactam (Sod 2.25 gm/ Sodium Chloride) 50 mls @ 100 mls/hr IV Q6HR PATRICIA Stop: 04/21/17 17:59 Last Admin: 02/21/17 11:46 Dose: 100 mls/hr Methylprednisolone Sodium Succinate (Solu-Medrol) 20 mg IVP Q8HR PATRICIA Stop: 04/14/17 12:59 Last Admin: 02/21/17 04:44 Dose: 20 mg Miscellaneous (Probiotic Screen) 1 ea PRN PRN PRN Reason: PROTOCOL Stop: 04/12/17 09:13 Miscellaneous (Clinical Monitoring) 1 ea DAILY PRN PRN Reason: RENAL Stop: 04/19/17 12:28 Ondansetron HCl (Zofran) 4 mg IV Q8H PRN PRN Reason: Nausea / Vomiting Stop: 04/11/17 08:23 Last Admin: 02/16/17 09:10 Dose: 4 mg Pantoprazole Sodium (Protonix) 40 mg PO DAILY PATRICIA Stop: 04/12/17 08:59 Last Admin: 02/21/17 08:54 Dose: 40 mg Potassium Chloride (Klor-Con) 20 meq PO DAILY PATRICIA Stop: 04/17/17 08:59 Last Admin: 02/21/17 08:54 Dose: 20 meq General: no acute distress, well developed, well nourished HEENT: atraumatic, normocephalic Neck: supple, no thyromegaly Cardiovascular: S1S2, regular Lungs: clear to auscultation bilaterally, clear to percussion Abdomen: soft, no tender, no distended Extremities: other (Left knee no swelling.), no cyanosis, no clubbing Neurological: awake, alert, oriented Skin: intact, other (surgical incision is doing well.) - Procedures Procedures: Procedures Procedure Code Date INSERT TUNNELED CV CATH [id number] 02/09/17 INSERTION OF INFUSION DEV INTO L SUBCLAV VEIN, PERC APPROACH [id number] 02/09/17 Infectious Disease Assmt/Plan - Problem List Patient Problems: All Active Problems NAUSEA AND VOMITING WITH DEHYDRATION (Acute) sepsis (Acute) Sepsis affecting skin (Acute) L02.91 - Assessment Assessment: 1. Leukocytosis, without bandemia improving. ? steroid ? Sepsis ? CDAC. 2. Pneumonia. 3. H/o HTN. 4. H/o Anemia. 5. Metabolic acidosis, improved. 6. SU, ? ATN. worsening of the creatinine. 7. Small superficial leg wound at the distal end, no sign of infection. 8. CHF. 9. H/O Left TKR. no clinical sign of infection. h/o prosthesis infection, treated recently. 10. Suspect aspiration pneumonia. 11. elevated liver enzymes. 12. Suspect CDAC , as patient has very high WBC count. Recommendations: Antibiotic cheek, continue zosyn and flagyl and Stool for C diff. wound care. f/u Blood cultures. Nutritional Asmnt/Malnutr-PDOC - Dietary Evaluation Malnutrition Findings (Please click <Entered> for more info): Nutritional Asmnt/Malnutrition Start: 02/14/17 13: 04 Text: Status: Complete Freq: Document 02/14/17 13:05 GSUN (Rec: 02/14/17 13:21 GSUN [id number]) Nutritional Asmnt/Malnutrition Patient General Information Nutritional Screening Moderate Risk Screening Pertinent Medical Hx/Surgical Hx Dx: Septic shock, hypotension, dehydration, metabolic acidosis improved, SU ?ATN, suspect aspiration PNA HTN, left knee prothesis, dyslipidemia, anemia Subjective Information 66 year old female, Ivorian speaking. Pt was receiving breathing treatment during [facility] visit. Observed clear liquid tray at bedside. progress note 02/13: DC NG tube and start PO as tolerated. Spoke to STEFANIE Mayorga RN stated for breakfast pt tolerated 2 juices, declined terrance, RN will remove mask and encourage lunch shortly. No significant wasting noted. 02/11 KUB: mild ielus. Current Diet Order/ Nutrition Support Clear liquid Pertinent Medications Vitamin C, Lipitor, Culturelle , Solu-Medrol, Zofran, Protonix, Nacl 0.45% Pertinent Labs 02/13: potassium 3L 02/14: BUN 30H, creatinine 1.8H (declining) Nutritional Hx/Data Height 1.68 m Height (Calculated Centimeters) 167.6 Current Weight (lbs) 75.75 kg Weight (Calculated Kilograms) 75.7 Weight (Calculated Grams) 06716.9 [place] Body Weight 130 Weight Status Overweight GI Symptoms Skin Integrity/Comment: Josias 14. Non-pitting edema bilateral feet. 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 Estimated Nutritional Goals Calories/Kcals/Kg IBW 130lb/59.1kg Kcals Calculated 1478-1773kcal (25-30kcal/kg) Protein Calculated 59g (1g/kg) Fluid: ml 1478-1773ml (1ml/kcal) Nutritional Problem 1. Problem Problem Impaired nutrient utilization related to Etiology renal dysfunction, per MD note SU ?ATN Signs/Symptoms: BUN 30H, creatinine 1.8H Intervention/Recommendation Comments 1. Recommend advance diet as tolerated to low sodium diet, to aid in renal function. No renal restriction due to hx of hypokalemia. Expected Outcomes/Goals Expected Outcomes/Goals 1. Pt to resume diet and meet at least 75% fo estimated nutritional needs.
--- NOTE | 2017-02-21 14:09 | General Progress Note ---
Subjective - Review of Systems Service Date: 02/21/17 Subjective: More awake, verbal, mild tachypnea, poor appetite Objective - Results Result Diagrams: 02/21/17 05:00 02/21/17 05:00 Recent Labs: Laboratory Last Values WBC 41.1 Th/cmm (4.8-10.8) H* 02/21/17 05:00 Corrected WBC (auto) 52.5 Th/cmm (4.8-10.8) H* 02/19/17 09:00 RBC 4.27 Mil/cmm (3.80-5.20) 02/21/17 05:00 Hgb 12.2 gm/dL (11.7-16.1) 02/21/17 05:00 Hct 35.7 % (35.0-45.0) 02/21/17 05:00 MCV 83.5 fl (81-100) 02/21/17 05:00 MCH 28.5 pg (27.0-31.0) 02/21/17 05:00 MCHC Differential 34.2 pg (28.0-36.0) 02/21/17 05:00 RDW 18.0 % (11.5-20.0) 02/21/17 05:00 Plt Count 349 Th/cmm (150-400) 02/21/17 05:00 MPV 8.6 fl 02/21/17 05:00 Neutrophils % 84.8 % (40.0-80.0) H 02/16/17 05:00 Band Neutrophils % 2 % (0-10) 02/20/17 06:28 Lymphocytes % 10.0 % (20.0-50.0) L 02/16/17 05:00 Monocytes % 2.7 % (2.0-10.0) 02/16/17 05:00 Eosinophils % 0.1 % (0.0-5.0) 02/16/17 05:00 Basophils % 2.4 % (0.0-2.0) H 02/16/17 05:00 Neutrophils (Manual) 89 % (40-80) H 02/21/17 05:00 Lymphocytes 10 % (20-50) L 02/21/17 05:00 Monocytes 1 % (2-10) L 02/21/17 05:00 Eosinophils 1 % (0-5) 02/15/17 05:00 Basophils 1 % (0-3) 02/09/17 20:27 Nucleated RBCs 6.0 % (0-0) H 02/19/17 09:00 Platelet Estimate ADEQUATE (NORMAL) 02/21/17 05:00 Platelet Morphology PLATELET CLUMPS SEEN (NORMAL) 02/18/17 05:55 Anisocytosis 1+ 02/18/17 05:55 RBC Morph Micro Appear ABNORMAL (NORMAL) 02/18/17 05:55 Smear Path Review YES 02/19/17 09:00 Eos Smear Source URINE 02/14/17 17:40 Eos Smear Total Cells NONE SEEN (NONE SEEN) 02/14/17 17:40 PT 15.6 SECONDS (9.5-11.5) H 02/19/17 16:04 INR 1.47 (0.5-1.4) H 02/19/17 16:04 PTT (Actin FS) 29.9 SECONDS (26.0-38.0) 02/19/17 16:04 Specimen Source Arterial 02/14/17 16:00 Sample Site Right Radial 02/14/17 16:00 pH 7.40 (7.35-7.45) 02/14/17 16:00 pCO2 33.0 mmHg (35.0-45.0) L 02/14/17 16:00 pO2 103.0 mmHg (80.0-100.0) H 02/14/17 16:00 HCO3 22.1 mEq/L (20.0-26.0) 02/14/17 16:00 Base Excess -3.6 mEq/L (-3.0-3.0) L 02/14/17 16:00 O2 Saturation 98.0 % (92.0-100.0) 02/14/17 16:00 Robin Test Positive 02/14/17 16:00 Vent Rate 12 02/14/17 16:00 Inspired O2 40 02/14/17 16:00 Tidal Volume NA 02/14/17 16:00 PEEP 6 02/14/17 16:00 Pressure (ins/psv/peep) 6 02/14/17 16:00 Critical Value LZHANG 02/14/17 16:00 Sodium 135 mEq/L (136-145) L 02/21/17 05:00 Potassium 4.0 mEq/L (3.5-5.1) 02/21/17 05:00 Chloride 101 mEq/L (98-107) 02/21/17 05:00 Carbon Dioxide 23.6 mEq/L (21.0-31.0) 02/21/17 05:00 Anion Gap 14.4 (7.0-16.0) 02/21/17 05:00 BUN 49 mg/dL (7-25) H 02/21/17 05:00 Creatinine 1.9 mg/dL (0.6-1.2) H 02/21/17 05:00 Est GFR ( Amer) 34.1 ml/min (>90) 02/21/17 05:00 Est GFR (Non-Af Amer) 28.2 ml/min 02/21/17 05:00 BUN/Creatinine Ratio 25.8 02/21/17 05:00 Glucose 109 mg/dL (70-105) H 02/21/17 05:00 POC Glucose 170 MG/DL (70 - 105) H 02/12/17 09:42 Hemoglobin A1c % 5.1 % (4.0-6.0) 02/11/17 08:11 Whole Bld Lactic Acid 1.29 mmol/L (0.60-1.99) 02/16/17 05:00 Uric Acid 11.2 mg/dL (2.3-6.6) H 02/15/17 05:00 Calcium 8.2 mg/dL (8.6-10.3) L 02/21/17 05:00 Phosphorus 3.8 mg/dL (2.5-5.0) 02/15/17 05:00 Magnesium 2.2 mg/dL (1.9-2.7) 02/19/17 05:40 Total Bilirubin 0.9 mg/dL (0.3-1.0) 02/21/17 05:00 AST 88 U/L (13-39) H 02/21/17 05:00 ALT 91 U/L (7-52) H 02/21/17 05:00 Alkaline Phosphatase 392 U/L (34-104) H 02/21/17 05:00 Creatine Kinase 67 U/L (30-223) 02/12/17 04:41 CK-MB (CK-2) 1.1 ng/mL (0.6-6.3) 02/09/17 20:27 Troponin I 0.01 ng/mL (0.01-0.05) 02/09/17 20:27 B-Natriuretic Peptide 2860.0 pg/mL (5.0-100.0) H 02/19/17 05:40 Total Protein 5.7 gm/dL (6.0-8.3) L 02/21/17 05:00 Albumin 2.8 gm/dL (3.7-5.3) L 02/21/17 05:00 Globulin 2.9 gm/dL 02/21/17 05:00 Albumin/Globulin Ratio 1.0 (1.0-1.8) 02/21/17 05:00 Amylase 23 U/L (29-103) L 02/13/17 05:03 Lipase 13 U/L (11-82) 02/13/17 05:03 Urine Source [place]EE [place] 02/14/17 17:40 Urine Color YELLOW 02/14/17 17:40 Urine Clarity SLIGHT HAZY (CLEAR) 02/14/17 17:40 Urine pH 5.5 02/14/17 17:40 Ur Specific [place] 1.020 (1.005-1.030) 02/14/17 17:40 Urine Protein 100 mg/dL (NEGATIVE) H 02/14/17 17:40 Urine Glucose (UA) NEGATIVE mg/dL (NEGATIVE) 02/14/17 17:40 Urine Ketones NEGATIVE mg/dL (NEGATIVE) 02/14/17 17:40 Urine Blood MODERATE (NEGATIVE) H 02/14/17 17:40 Urine Nitrate NEGATIVE (NEGATIVE) 02/14/17 17:40 Urine Bilirubin NEGATIVE (NEGATIVE) 02/14/17 17:40 Urine Urobilinogen 0.2 E.U./dL (0.2 - 1.0) 02/14/17 17:40 Ur Leukocyte Esterase NEGATIVE (NEGATIVE) 02/14/17 17:40 Urine RBC 2-5 /hpf (0-5) 02/14/17 17:40 Urine WBC 2-5 /hpf (0-5) 02/14/17 17:40 Ur Epithelial Cells FEW /lpf (FEW) 02/14/17 17:40 Amorphous Sediment MANY URATES (NONE SEEN) 02/14/17 17:40 Urine Bacteria MODERATE /hpf (NONE SEEN) 02/14/17 17:40 Hyaline Casts 0-2 /lpf (0-2) H 02/09/17 21:05 Urine Yeast FEW /hpf (NONE SEEN) H 02/14/17 17:40 Ur Random Sodium 37 mmol/L 02/14/17 17:40 Urine Creatinine 32.9 mg/dl (Not Estab.) 02/14/17 21:55 Urine Microalbumin 332.1 ug/mL (Not Estab.) 02/14/17 21:55 Microalb/Creat Ratio 1009.4 mg/g creat (0.0-30.0) H 02/14/17 21:55 Stool Leukocyte NO WBC SEEN 02/12/17 00:05 Hepatitis A IgM Ab Negative (Negative) 02/19/17 06:00 Hep Bs Antigen Negative (Negative) 02/19/17 06:00 Hep B Core IgM Ab Negative (Negative) 02/19/17 06:00 Hepatitis C Antibody 0.1 s/co ratio (0.0-0.9) 02/19/17 06:00 - Physical Exam Vitals and I&O: Vital Signs Temp 97.8 F 02/21/17 12:00 Pulse 76 02/21/17 12:00 Resp 20 02/21/17 12:00 BP 102/75 02/21/17 12:00 Pulse Ox 99 02/21/17 12:00 Intake & Output 02/20/17 02/21/17 02/21/17 18:59 06:59 18:59 Intake Total 400 300 100 Output Total 3400 1350 Balance -3000 -1050 100 Weight (lbs) 80.286 kg 79.832 kg Intake: Intake, IV Amount 100 200 100 Piperacillin Sodium/ 100 Tazobact 2.25 gm In Sodium Chloride 0.9% 50 ml @ 100 mls/hr IV Q6HR PATRICIA Rx#:[id number] metroNIDAZOLE 500mg/NS 100 100 100 100mL 500 mg In 100 ml @ 100 mls/hr IV Q8HR PATRICIA Rx #:[id number] Oral 300 100 Output: Urine 3400 1350 Other: # Bowel Movements 1 1 Active Medications: Current Medications Acetaminophen (Tylenol) 650 mg PO Q4HR PRN PRN Reason: TEMP >100 OR PAIN Stop: 04/11/17 15:21 Acetaminophen/Codeine Phosphate (Tylenol W/Codeine #3) 1 tab PO Q6HR PRN PRN Reason: MODERATE PAIN Stop: 04/11/17 15:21 Last Admin: 02/18/17 05:19 Dose: 1 tab Acetaminophen/Hydrocodone Bitart ([place] 5mg/325mg) 2 tab PO Q4H PRN PRN Reason: Severe Pain Stop: 04/11/17 15:21 Last Admin: 02/18/17 08:48 Dose: 2 tab Albuterol Sulfate (Albuterol 2.5mg/3ml Neb Ud) 2.5 mg HHN Q4HRT PRN PRN Reason: Wheezing Stop: 04/13/17 08:21 Last Admin: 02/17/17 19:36 Dose: 2.5 mg Ascorbic Acid (Vitamin C) 500 mg PO DAILY PATRICIA Stop: 04/12/17 08:59 Last Admin: 02/21/17 08:54 Dose: 500 mg Atorvastatin Calcium (Lipitor) 10 mg PO HS PATRICIA PRN Reason: Protocol Stop: 04/11/17 20:59 Last Admin: 02/20/17 22:12 Dose: 10 mg Furosemide (Lasix) 40 mg IVP BID PATRICIA Stop: 04/19/17 16:59 Last Admin: 02/21/17 08:54 Dose: 40 mg Heparin Sodium (Porcine) (Heparin) 5,000 units SUBQ Q12HR PATRICIA Stop: 04/22/17 20:59 Sodium Chloride (Nacl 0.45%) 1,000 mls @ 0 mls/hr IV .Q0M PATRICIA PRN Reason: KVO Stop: 04/15/17 10:13 Last Admin: 02/14/17 11:04 Dose: 10 mls/hr Metronidazole (Flagyl) 500 mg in 100 mls @ 100 mls/hr IV Q8HR [facility] Stop: 04/19/17 21:59 Last Infusion: 02/21/17 07:03 Dose: Infused Piperacillin Sod/Tazobactam (Sod 2.25 gm/ Sodium Chloride) 50 mls @ 100 mls/hr IV Q6HR PATRICIA Stop: 04/21/17 17:59 Last Admin: 02/21/17 11:46 Dose: 100 mls/hr Methylprednisolone Sodium Succinate (Solu-Medrol) 20 mg IVP Q8HR PATRICIA Stop: 04/14/17 12:59 Last Admin: 02/21/17 04:44 Dose: 20 mg Miscellaneous (Probiotic Screen) 1 ea MC PRN PRN PRN Reason: PROTOCOL Stop: 04/12/17 09:13 Miscellaneous (Clinical Monitoring) 1 ea MC DAILY PRN PRN Reason: RENAL Stop: 04/19/17 12:28 Ondansetron HCl (Zofran) 4 mg IV Q8H PRN PRN Reason: Nausea / Vomiting Stop: 04/11/17 08:23 Last Admin: 02/16/17 09:10 Dose: 4 mg Pantoprazole Sodium (Protonix) 40 mg PO DAILY PATRICIA Stop: 04/12/17 08:59 Last Admin: 02/21/17 08:54 Dose: 40 mg Potassium Chloride (Klor-Con) 20 meq PO DAILY PATRICIA Stop: 04/17/17 08:59 Last Admin: 02/21/17 08:54 Dose: 20 meq General: Alert, Mild distress HEENT: Atraumatic, PERRLA, EOMI, Mucous membr. moist/pink Neck: Supple, +2 carotid pulse wo bruit Cardiovascular: Regular rate, Normal S1, Normal S2 Lungs: Other (few rhonchi) Abdomen: Bowel sounds, Soft Extremities: no Edema Neurological: Sensation intact Skin: no Rash Psych/Mental Status: Mood NL - Procedures Procedures: Procedures Procedure Code Date INSERT TUNNELED CV CATH [id number] 02/09/17 INSERTION OF INFUSION DEV INTO L SUBCLAV VEIN, PERC APPROACH [id number] 02/09/17 Assessment/Plan - Problem List Patient Problems: All Active Problems NAUSEA AND VOMITING WITH DEHYDRATION (Acute) sepsis (Acute) Sepsis affecting skin (Acute) L02.91 - Assessment Assessment: Acute kidney injury secondary to acute tubular injury Fractional excretion of sodium is 1.1% suggestive of intrinsic renal failure Shock secondary to sepsis Distended gallbladder with normal acute cholecystitis Abdominal pain secondary to ileus Ileus secondary to sepsis Acute decompensation of systolic congestive heart failure(EJF 15-20%) Respiratory failure secondary to aspiration pneumonia/CHF Anemia of chronic kidney disease Dyslipidemia Status post Infected prosthesis left knee, status post I&D Purely anion gap metabolic acidosis with respiratory alkalosis Sepsis secondary to aspiration pneumonia Worsening liver enzymes due to sepsis, medications, hypotension Acalculous Cholecystitis - Plan Plan: Lab - Result Diagrams 02/15/17 05:00 02/15/17 05:00 Current Medications Acetaminophen (Tylenol) 650 mg PO Q4HR PRN PRN Reason: TEMP >100 OR PAIN Stop: 04/11/17 15:21 Acetaminophen/Codeine Phosphate (Tylenol W/Codeine #3) 1 tab PO Q6HR PRN PRN Reason: MODERATE PAIN Stop: 04/11/17 15:21 Last Admin: 02/14/17 02:08 Dose: 1 tab Acetaminophen/Hydrocodone Bitart ([place] 5mg/325mg) 2 tab PO Q4H PRN PRN Reason: Severe Pain Stop: 04/11/17 15:21 Last Admin: 02/15/17 00:06 Dose: 2 tab Albuterol Sulfate (Albuterol 2.5mg/3ml Neb Ud) 2.5 mg HHN Q4HRT PRN PRN Reason: Wheezing Stop: 04/13/17 08:21 Last Admin: 02/14/17 15:54 Dose: 2.5 mg Ascorbic Acid (Vitamin C) 500 mg PO DAILY PATRICIA Stop: 04/12/17 08:59 Last Admin: 02/15/17 09:33 Dose: 500 mg Atorvastatin Calcium (Lipitor) 10 mg PO HS PATRICIA PRN Reason: Protocol Stop: 04/11/17 20:59 Last Admin: 02/14/17 20:49 Dose: 10 mg Furosemide (Lasix) 40 mg IVP BID PATRICIA Stop: 04/14/17 08:59 Last Admin: 02/15/17 09:33 Dose: 40 mg Piperacillin Sod/Tazobactam (Sod 4.5 gm/ Sodium Chloride) 100 mls @ 100 mls/hr IV Q8HR PATRICIA Stop: 04/11/17 13:59 Last Admin: 02/15/17 05:23 Dose: 100 mls/hr Norepinephrine Bitartrate 8 mg (/ Dextrose) 258 mls @ 77.4 mls/hr IV TITR PRN; Protocol; 40 MCG/MIN PRN Reason: BP MAINTENANCE (PER PROTOCOL) Stop: 04/12/17 07:46 Last Admin: 02/15/17 01:45 Dose: 5.16 mcg/min, 9.98 mls/hr Diltiazem HCl 125 mg/ Dextrose 125 mls @ 10 mls/hr IV TITR PATRICIA; 10 MG/HR PRN Reason: Protocol Stop: 04/15/17 04:29 Last Titration: 02/15/17 10:18 Dose: Infused Sodium Chloride (Nacl 0.45%) 1,000 mls @ 0 mls/hr IV .Q0M PATRICIA PRN Reason: KVO Stop: 04/15/17 10:13 Last Admin: 02/14/17 11:04 Dose: 10 mls/hr Lactobacillus Rhamnosus (Culturelle) 1 each PO DAILY PATRICIA Stop: 04/13/17 08:59 Last Admin: 02/15/17 09:33 Dose: 1 each Methylprednisolone Sodium Succinate (Solu-Medrol) 20 mg IVP Q8HR PATRICIA Stop: 04/14/17 12:59 Last Admin: 02/15/17 05:23 Dose: 20 mg Miscellaneous (Probiotic Screen) 1 ea MC PRN PRN PRN Reason: PROTOCOL Stop: 04/12/17 09:13 Ondansetron HCl (Zofran) 4 mg IV Q8H PRN PRN Reason: Nausea / Vomiting Stop: 04/11/17 08:23 Last Admin: 02/12/17 00:59 Dose: 4 mg Pantoprazole Sodium (Protonix) 40 mg PO DAILY PATRICIA Stop: 04/12/17 08:59 Last Admin: 02/15/17 09:32 Dose: 40 mg Kidney function better with a BUN/creatinine of 49/1.9, had dialysis last nite Chest x-ray basically the same with bilateral effusions, pulmonary congestion, left density Continue diuretics for now due to CHF, elevated BNP(2860) Off Levophed Monitor electrolytes and CBC along with chest x-ray Replace potassium and magnesium White count continues to increase now at 41.1 Liver enzymes slightly improved Discussed with family about the possibility of dialysis if chest x-ray continues to show CHF with very poor response to diuretics and worsening kidney function I had a lengthy discussion with son Alexi about the need for hemodialysis as I have explained previously in my note, he agreed Echo revealed ejection fraction 15-20% with RVSP of 24.5, consider AICD, Bivent pacer schedule for HD tomorrow based on labs, resp status, cxr Nutritional Asmnt/Malnutr-PDOC - Dietary Evaluation Malnutrition Findings (Please click <Entered> for more info): Nutritional Asmnt/Malnutrition Start: 02/14/17 13: 04 Text: Status: Complete Freq: Document 02/14/17 13:05 GSUN (Rec: 02/14/17 13:21 GSUN [id number]) Nutritional Asmnt/Malnutrition Patient General Information Nutritional Screening Moderate Risk Screening Pertinent Medical Hx/Surgical Hx Dx: Septic shock, hypotension, dehydration, metabolic acidosis improved, SU ?ATN, suspect aspiration PNA HTN, left knee prothesis, dyslipidemia, anemia Subjective Information 66 year old female, Yi speaking. Pt was receiving breathing treatment during [facility] visit. Observed clear liquid tray at bedside. progress note 02/13: DC NG tube and start PO as tolerated. Spoke to RN STEFANIE Mayorga stated for breakfast pt tolerated 2 juices, declined broth, RN will remove mask and encourage lunch shortly. No significant wasting noted. 02/11 KUB: mild ielus. Current Diet Order/ Nutrition Support Clear liquid Pertinent Medications Vitamin C, Lipitor, Culturelle , Solu-Medrol, Zofran, Protonix, Nacl 0.45% Pertinent Labs 02/13: potassium 3L 02/14: BUN 30H, creatinine 1.8H (declining) Nutritional Hx/Data Height 1.68 m Height (Calculated Centimeters) 167.6 Current Weight (lbs) 75.75 kg Weight (Calculated Kilograms) 75.7 Weight (Calculated Grams) 35460.9 [place] Body Weight 130 Weight Status Overweight GI Symptoms Skin Integrity/Comment: Josias 14. Non-pitting edema bilateral feet. 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 Estimated Nutritional Goals Calories/Kcals/Kg IBW 130lb/59.1kg Kcals Calculated 1478-1773kcal (25-30kcal/kg) Protein Calculated 59g (1g/kg) Fluid: ml 1478-1773ml (1ml/kcal) Nutritional Problem 1. Problem Problem Impaired nutrient utilization related to Etiology renal dysfunction, per MD note SU ?ATN Signs/Symptoms: BUN 30H, creatinine 1.8H Intervention/Recommendation Comments 1. Recommend advance diet as tolerated to low sodium diet, to aid in renal function. No renal restriction due to hx of hypokalemia. Expected Outcomes/Goals Expected Outcomes/Goals 1. Pt to resume diet and meet at least 75% fo estimated nutritional needs.
[2017-02-21] MEDS: Atorvastatin Calcium 10 MG TAB PO SCH (21:32)
[2017-02-22] MEDS: Piperacillin/Tazobact 2.25 gm in 0.9% NS 50 ML IV SCH ×6 (00:30→23:26)
[2017-02-22] MEDS: metroNIDAZOLE 500mg/NS 100mL 500 MG/100 ML BAG IV SCH ×3 (04:59→20:58)
[2017-02-22] MEDS: methylPREDNISolone SS 40 mg Vial IVP SCH ×3 (04:59→20:49)
[2017-02-22 07:17] LABS: HEMATOCRIT 33.7 % (35.0-45.0); HEMOGLOBIN 11.6 gm/dL (11.7-16.1); MEAN CELL VOLUME 83.8 fl (81-100); MEAN CORPUSCULAR HEMOGLOBIN 28.8 pg (27.0-31.0); MEAN CORPUSCULAR HGB CONC 34.3 pg (28.0-36.0); MEAN PLATELET VOLUME 8.9 fl; NEUTROPHILE ABSOLUTE 24.4 Th/cmm (1.8-8.0); PLATELET COUNT 279 Th/cmm (150-400); RED BLOOD COUNT 4.02 Mil/cmm (3.80-5.20); RED CELL DISTRIBUTION WIDTH 18.5 % (11.5-20.0)
[2017-02-22 07:37] LABS: WHITE BLOOD COUNT 26.2 Th/cmm (4.8-10.8)
[2017-02-22 07:45] LABS: ALB/GLOB RATIO 0.9 (1.0-1.8); ANION GAP 18.5 (7.0-16.0); BUN/CREATININE RATIO 26.7; CALCIUM SERUM 8.2 mg/dL (8.6-10.3); CARBON DIOXIDE 18.2 mEq/L (21.0-31.0); CREATININE - SERUM 1.8 mg/dL (0.6-1.2); POTASSIUM SERUM 3.7 mEq/L (3.5-5.1)
--- NOTE | 2017-02-22 08:12 | General Progress Note ---
Subjective - Review of Systems Events since last encounter: no change Subjective: pt is awake denies any pain pt states she in comfortable Objective - Results Result Diagrams: 02/22/17 06:15 02/22/17 06:15 Recent Labs: Laboratory Last Values WBC 26.2 Th/cmm (4.8-10.8) H* D 02/22/17 06:15 Corrected WBC (auto) 52.5 Th/cmm (4.8-10.8) H* 02/19/17 09:00 RBC 4.02 Mil/cmm (3.80-5.20) 02/22/17 06:15 Hgb 11.6 gm/dL (11.7-16.1) L 02/22/17 06:15 Hct 33.7 % (35.0-45.0) L 02/22/17 06:15 MCV 83.8 fl (81-100) 02/22/17 06:15 MCH 28.8 pg (27.0-31.0) 02/22/17 06:15 MCHC Differential 34.3 pg (28.0-36.0) 02/22/17 06:15 RDW 18.5 % (11.5-20.0) 02/22/17 06:15 Plt Count 279 Th/cmm (150-400) D 02/22/17 06:15 MPV 8.9 fl 02/22/17 06:15 Neutrophils % 84.8 % (40.0-80.0) H 02/16/17 05:00 Band Neutrophils % 2 % (0-10) 02/20/17 06:28 Lymphocytes % 10.0 % (20.0-50.0) L 02/16/17 05:00 Monocytes % 2.7 % (2.0-10.0) 02/16/17 05:00 Eosinophils % 0.1 % (0.0-5.0) 02/16/17 05:00 Basophils % 2.4 % (0.0-2.0) H 02/16/17 05:00 Neutrophils (Manual) 89 % (40-80) H 02/21/17 05:00 Lymphocytes 10 % (20-50) L 02/21/17 05:00 Monocytes 1 % (2-10) L 02/21/17 05:00 Eosinophils 1 % (0-5) 02/15/17 05:00 Basophils 1 % (0-3) 02/09/17 20:27 Nucleated RBCs 6.0 % (0-0) H 02/19/17 09:00 Platelet Estimate ADEQUATE (NORMAL) 02/21/17 05:00 Platelet Morphology PLATELET CLUMPS SEEN (NORMAL) 02/18/17 05:55 Anisocytosis 1+ 02/18/17 05:55 RBC Morph Micro Appear ABNORMAL (NORMAL) 02/18/17 05:55 Smear Path Review YES 02/19/17 09:00 Eos Smear Source URINE 02/14/17 17:40 Eos Smear Total Cells NONE SEEN (NONE SEEN) 02/14/17 17:40 PT 15.6 SECONDS (9.5-11.5) H 02/19/17 16:04 INR 1.47 (0.5-1.4) H 02/19/17 16:04 PTT (Actin FS) 29.9 SECONDS (26.0-38.0) 02/19/17 16:04 Specimen Source Arterial 02/14/17 16:00 Sample Site Right Radial 02/14/17 16:00 pH 7.40 (7.35-7.45) 02/14/17 16:00 pCO2 33.0 mmHg (35.0-45.0) L 02/14/17 16:00 pO2 103.0 mmHg (80.0-100.0) H 02/14/17 16:00 HCO3 22.1 mEq/L (20.0-26.0) 02/14/17 16:00 Base Excess -3.6 mEq/L (-3.0-3.0) L 02/14/17 16:00 O2 Saturation 98.0 % (92.0-100.0) 02/14/17 16:00 Robin Test Positive 02/14/17 16:00 Vent Rate 12 02/14/17 16:00 Inspired O2 40 02/14/17 16:00 Tidal Volume NA 02/14/17 16:00 PEEP 6 02/14/17 16:00 Pressure (ins/psv/peep) 6 02/14/17 16:00 Critical Value LZHANG 02/14/17 16:00 Sodium 135 mEq/L (136-145) L 02/22/17 06:15 Potassium 3.7 mEq/L (3.5-5.1) 02/22/17 06:15 Chloride 102 mEq/L (98-107) 02/22/17 06:15 Carbon Dioxide 18.2 mEq/L (21.0-31.0) L 02/22/17 06:15 Anion Gap 18.5 (7.0-16.0) H 02/22/17 06:15 BUN 48 mg/dL (7-25) H 02/22/17 06:15 Creatinine 1.8 mg/dL (0.6-1.2) H 02/22/17 06:15 Est GFR ( Amer) 36.3 ml/min (>90) 02/22/17 06:15 Est GFR (Non-Af Amer) 30.0 ml/min 02/22/17 06:15 BUN/Creatinine Ratio 26.7 02/22/17 06:15 Glucose 94 mg/dL (70-105) 02/22/17 06:15 POC Glucose 170 MG/DL (70 - 105) H 02/12/17 09:42 Hemoglobin A1c % 5.1 % (4.0-6.0) 02/11/17 08:11 Whole Bld Lactic Acid 1.29 mmol/L (0.60-1.99) 02/16/17 05:00 Uric Acid 11.2 mg/dL (2.3-6.6) H 02/15/17 05:00 Calcium 8.2 mg/dL (8.6-10.3) L 02/22/17 06:15 Phosphorus 3.8 mg/dL (2.5-5.0) 02/15/17 05:00 Magnesium 2.2 mg/dL (1.9-2.7) 02/19/17 05:40 Total Bilirubin 1.0 mg/dL (0.3-1.0) 02/22/17 06:15 AST 84 U/L (13-39) H 02/22/17 06:15 ALT 83 U/L (7-52) H 02/22/17 06:15 Alkaline Phosphatase 372 U/L (34-104) H 02/22/17 06:15 Creatine Kinase 67 U/L (30-223) 02/12/17 04:41 CK-MB (CK-2) 1.1 ng/mL (0.6-6.3) 02/09/17 20:27 Troponin I 0.01 ng/mL (0.01-0.05) 02/09/17 20:27 B-Natriuretic Peptide 556.0 pg/mL (5.0-100.0) H 02/22/17 06:15 Total Protein 5.7 gm/dL (6.0-8.3) L 02/22/17 06:15 Albumin 2.7 gm/dL (3.7-5.3) L 02/22/17 06:15 Globulin 3.0 gm/dL 02/22/17 06:15 Albumin/Globulin Ratio 0.9 (1.0-1.8) L 02/22/17 06:15 Amylase 23 U/L (29-103) L 02/13/17 05:03 Lipase 13 U/L (11-82) 02/13/17 05:03 Urine Source ZEE PORT 02/14/17 17:40 Urine Color YELLOW 02/14/17 17:40 Urine Clarity SLIGHT HAZY (CLEAR) 02/14/17 17:40 Urine pH 5.5 02/14/17 17:40 Ur Specific [place] 1.020 (1.005-1.030) 02/14/17 17:40 Urine Protein 100 mg/dL (NEGATIVE) H 02/14/17 17:40 Urine Glucose (UA) NEGATIVE mg/dL (NEGATIVE) 02/14/17 17:40 Urine Ketones NEGATIVE mg/dL (NEGATIVE) 02/14/17 17:40 Urine Blood MODERATE (NEGATIVE) H 02/14/17 17:40 Urine Nitrate NEGATIVE (NEGATIVE) 02/14/17 17:40 Urine Bilirubin NEGATIVE (NEGATIVE) 02/14/17 17:40 Urine Urobilinogen 0.2 E.U./dL (0.2 - 1.0) 02/14/17 17:40 Ur Leukocyte Esterase NEGATIVE (NEGATIVE) 02/14/17 17:40 Urine RBC 2-5 /hpf (0-5) 02/14/17 17:40 Urine WBC 2-5 /hpf (0-5) 02/14/17 17:40 Ur Epithelial Cells FEW /lpf (FEW) 02/14/17 17:40 Amorphous Sediment MANY URATES (NONE SEEN) 02/14/17 17:40 Urine Bacteria MODERATE /hpf (NONE SEEN) 02/14/17 17:40 Hyaline Casts 0-2 /lpf (0-2) H 02/09/17 21:05 Urine Yeast FEW /hpf (NONE SEEN) H 02/14/17 17:40 Ur Random Sodium 37 mmol/L 02/14/17 17:40 Urine Creatinine 32.9 mg/dl (Not Estab.) 02/14/17 21:55 Urine Microalbumin 332.1 ug/mL (Not Estab.) 02/14/17 21:55 Microalb/Creat Ratio 1009.4 mg/g creat (0.0-30.0) H 02/14/17 21:55 Stool Leukocyte NO WBC SEEN 02/12/17 00:05 Hepatitis A IgM Ab Negative (Negative) 02/19/17 06:00 Hep Bs Antigen Negative (Negative) 02/19/17 06:00 Hep B Core IgM Ab Negative (Negative) 02/19/17 06:00 Hepatitis C Antibody 0.1 s/co ratio (0.0-0.9) 02/19/17 06:00 - Physical Exam Vitals and I&O: Vital Signs Temp 97.7 F 02/22/17 07:29 Pulse 97 02/22/17 07:29 Resp 17 02/22/17 07:29 BP 94/67 02/22/17 07:29 Pulse Ox 98 02/22/17 07:29 Intake & Output 02/21/17 02/22/17 02/22/17 18:59 06:59 18:59 Intake Total 300 210 Balance 300 210 Weight (lbs) 79.832 kg Intake: Intake, IV Amount 300 150 Piperacillin Sodium/ 100 50 Tazobact 2.25 gm In Sodium Chloride 0.9% 50 ml @ 100 mls/hr IV Q6HR [facility] Rx#:[id number] metroNIDAZOLE 500mg/NS 200 100 100mL 500 mg In 100 ml @ 100 mls/hr IV Q8HR [facility] Rx #:[id number] Oral 60 Other: Stool Characteristics Soft Soft Formed Mucoid Brown Active Medications: Current Medications Acetaminophen (Tylenol) 650 mg PO Q4HR PRN PRN Reason: TEMP >100 OR PAIN Stop: 04/11/17 15:21 Acetaminophen/Codeine Phosphate (Tylenol W/Codeine #3) 1 tab PO Q6HR PRN PRN Reason: MODERATE PAIN Stop: 04/11/17 15:21 Last Admin: 02/18/17 05:19 Dose: 1 tab Acetaminophen/Hydrocodone Bitart ([place] 5mg/325mg) 2 tab PO Q4H PRN PRN Reason: Severe Pain Stop: 04/11/17 15:21 Last Admin: 02/18/17 08:48 Dose: 2 tab Albuterol Sulfate (Albuterol 2.5mg/3ml Neb Ud) 2.5 mg HHN Q4HRT PRN PRN Reason: Wheezing Stop: 04/13/17 08:21 Last Admin: 02/17/17 19:36 Dose: 2.5 mg Ascorbic Acid (Vitamin C) 500 mg PO DAILY [facility] Stop: 04/12/17 08:59 Last Admin: 02/21/17 08:54 Dose: 500 mg Atorvastatin Calcium (Lipitor) 10 mg PO HS [facility] PRN Reason: Protocol Stop: 04/11/17 20:59 Last Admin: 02/21/17 21:32 Dose: 10 mg Furosemide (Lasix) 40 mg IVP BID COUNT INCLUDES THE [facility] Stop: 04/19/17 16:59 Last Admin: 02/21/17 17:16 Dose: 40 mg Heparin Sodium (Porcine) (Heparin) 5,000 units SUBQ Q12HR [facility] Stop: 04/22/17 20:59 Last Admin: 02/21/17 21:34 Dose: 5,000 units Sodium Chloride (Nacl 0.45%) 1,000 mls @ 0 mls/hr IV .Q0M [facility] PRN Reason: KVO Stop: 04/15/17 10:13 Last Admin: 02/14/17 11:04 Dose: 10 mls/hr Metronidazole (Flagyl) 500 mg in 100 mls @ 100 mls/hr IV Q8HR COUNT INCLUDES THE [facility] Stop: 04/19/17 21:59 Last Admin: 02/22/17 04:59 Dose: 100 mls/hr Piperacillin Sod/Tazobactam (Sod 2.25 gm/ Sodium Chloride) 50 mls @ 100 mls/hr IV Q6HR COUNT INCLUDES THE [facility] Stop: 04/21/17 17:59 Last Admin: 02/22/17 06:26 Dose: 100 mls/hr Methylprednisolone Sodium Succinate (Solu-Medrol) 20 mg IVP Q8HR COUNT INCLUDES THE [facility] Stop: 04/14/17 12:59 Last Admin: 02/22/17 04:59 Dose: 20 mg Miscellaneous (Probiotic Screen) 1 ea MC PRN PRN PRN Reason: PROTOCOL Stop: 04/12/17 09:13 Miscellaneous (Clinical Monitoring) 1 ea MC DAILY PRN PRN Reason: RENAL Stop: 04/19/17 12:28 Ondansetron HCl (Zofran) 4 mg IV Q8H PRN PRN Reason: Nausea / Vomiting Stop: 04/11/17 08:23 Last Admin: 02/16/17 09:10 Dose: 4 mg Pantoprazole Sodium (Protonix) 40 mg PO DAILY [facility] Stop: 04/12/17 08:59 Last Admin: 02/21/17 08:54 Dose: 40 mg Potassium Chloride (Klor-Con) 20 meq PO DAILY COUNT INCLUDES THE [facility] Stop: 04/17/17 08:59 Last Admin: 02/21/17 08:54 Dose: 20 meq General: Alert, Mild distress HEENT: Atraumatic, PERRLA, EOMI, Mucous membr. moist/pink Neck: Supple, +2 carotid pulse wo bruit Cardiovascular: Regular rate, Normal S1, Normal S2 Lungs: Other (few rhonchi) Abdomen: Bowel sounds, Soft Extremities: no Edema Neurological: Sensation intact Skin: no Rash Psych/Mental Status: Mood NL - Procedures Procedures: Procedures Procedure Code Date INSERT TUNNELED CV CATH [id number] 02/09/17 INSERTION OF INFUSION DEV INTO L SUBCLAV VEIN, PERC APPROACH 55P402C 02/09/17 Assessment/Plan - Problem List Patient Problems: All Active Problems NAUSEA AND VOMITING WITH DEHYDRATION (Acute) sepsis (Acute) Sepsis affecting skin (Acute) L02.91 - Assessment Assessment: Current Active Problems Problem Status Onset NAUSEA AND VOMITING WITH DEHYDRATION Acute leukocytosis distended gall bladder r/o chelocystitis trachycardia - Plan Plan: cpm Nutritional Asmnt/Malnutr-PDOC - Dietary Evaluation Malnutrition Findings (Please click <Entered> for more info): Nutritional Asmnt/Malnutrition Start: 02/14/17 13: 04 Text: Status: Complete Freq: Document 02/14/17 13:05 GSUN (Rec: 02/14/17 13:21 GSUN [id number]) Nutritional Asmnt/Malnutrition Patient General Information Nutritional Screening Moderate Risk Screening Pertinent Medical Hx/Surgical Hx Dx: Septic shock, hypotension, dehydration, metabolic acidosis improved, SU ?ATN, suspect aspiration PNA HTN, left knee prothesis, dyslipidemia, anemia Subjective Information 66 year old female, Indian speaking. Pt was receiving breathing treatment during [facility] visit. Observed clear liquid tray at bedside. MD progress note 02/13: DC NG tube and start PO as tolerated. Spoke to RN STEFANIE Mayorga stated for breakfast pt tolerated 2 juices, declined broth, RN will remove mask and encourage lunch shortly. No significant wasting noted. 02/11 KUB: mild ielus. Current Diet Order/ Nutrition Support Clear liquid Pertinent Medications Vitamin C, Lipitor, Culturelle , Solu-Medrol, Zofran, Protonix, Nacl 0.45% Pertinent Labs 02/13: potassium 3L 02/14: BUN 30H, creatinine 1.8H (declining) Nutritional Hx/Data Height 1.68 m Height (Calculated Centimeters) 167.6 Current Weight (lbs) 75.75 kg Weight (Calculated Kilograms) 75.7 Weight (Calculated Grams) 67658.9 [place] Body Weight 130 Weight Status Overweight GI Symptoms Skin Integrity/Comment: Josias 14. Non-pitting edema bilateral feet. 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 Estimated Nutritional Goals Calories/Kcals/Kg IBW 130lb/59.1kg Kcals Calculated 1478-1773kcal (25-30kcal/kg) Protein Calculated 59g (1g/kg) Fluid: ml 1478-1773ml (1ml/kcal) Nutritional Problem 1. Problem Problem Impaired nutrient utilization related to Etiology renal dysfunction, per MD note SU ?ATN Signs/Symptoms: BUN 30H, creatinine 1.8H Intervention/Recommendation Comments 1. Recommend advance diet as tolerated to low sodium diet, to aid in renal function. No renal restriction due to hx of hypokalemia. Expected Outcomes/Goals Expected Outcomes/Goals 1. Pt to resume diet and meet at least 75% fo estimated nutritional needs.
[2017-02-22 08:19] LABS: TOTAL CELLS COUNTED 100
[2017-02-22 08:20] LABS: BAND NEUTROPHILE 4 % (0-10); NEUTROPHILS 87 % (40-80); PLATELET ESTIMATE ADEQUATE (NORMAL)
[2017-02-22] MEDS: Potassium Chloride 20 mEq ER Tab PO SCH (09:42)
[2017-02-22] MEDS: Pantoprazole 40 mg EC Tab PO SCH (09:42)
[2017-02-22] MEDS: Multivitamin w/ Minerals Tab PO SCH (09:42)
--- NOTE | 2017-02-22 11:36 | Diagnostic Imaging Report ---
Portable chest x-ray HISTORY: Shortness of breath Compared with prior exam of February 21, 2017, the heart remains enlarged. There is persistent density in the left lower hemithorax. The finding corresponds to pleural and parenchymal changes noted on the prior CT scan of February 18, 2017. No change in vascular catheter placement. IMPRESSION: 1. No change in the cardiopulmonary status.
--- NOTE | 2017-02-22 13:49 | Diagnostic Imaging Report ---
Left knee (2 views, portable) HISTORY: Status post surgery, pain The exam demonstrates a left knee arthroplasty. Position alignment appear anatomic. Extensive vascular calcification is seen. IMPRESSION: 1. Left knee arthroplasty 2. Atherosclerotic vascular changes
--- NOTE | 2017-02-22 16:46 | General Progress Note ---
Subjective - Review of Systems Service Date: 02/22/17 Objective - Results Result Diagrams: 02/22/17 06:15 02/22/17 06:15 Recent Labs: Laboratory Last Values WBC 26.2 Th/cmm (4.8-10.8) H* D 02/22/17 06:15 Corrected WBC (auto) 52.5 Th/cmm (4.8-10.8) H* 02/19/17 09:00 RBC 4.02 Mil/cmm (3.80-5.20) 02/22/17 06:15 Hgb 11.6 gm/dL (11.7-16.1) L 02/22/17 06:15 Hct 33.7 % (35.0-45.0) L 02/22/17 06:15 MCV 83.8 fl (81-100) 02/22/17 06:15 MCH 28.8 pg (27.0-31.0) 02/22/17 06:15 MCHC Differential 34.3 pg (28.0-36.0) 02/22/17 06:15 RDW 18.5 % (11.5-20.0) 02/22/17 06:15 Plt Count 279 Th/cmm (150-400) D 02/22/17 06:15 MPV 8.9 fl 02/22/17 06:15 Neutrophils % 84.8 % (40.0-80.0) H 02/16/17 05:00 Band Neutrophils % 4 % (0-10) 02/22/17 06:15 Lymphocytes % 10.0 % (20.0-50.0) L 02/16/17 05:00 Monocytes % 2.7 % (2.0-10.0) 02/16/17 05:00 Eosinophils % 0.1 % (0.0-5.0) 02/16/17 05:00 Basophils % 2.4 % (0.0-2.0) H 02/16/17 05:00 Neutrophils (Manual) 87 % (40-80) H 02/22/17 06:15 Lymphocytes 4 % (20-50) L 02/22/17 06:15 Monocytes 5 % (2-10) 02/22/17 06:15 Eosinophils 1 % (0-5) 02/15/17 05:00 Basophils 1 % (0-3) 02/09/17 20:27 Nucleated RBCs 6.0 % (0-0) H 02/19/17 09:00 Platelet Estimate ADEQUATE (NORMAL) 02/22/17 06:15 Platelet Morphology PLATELET CLUMPS SEEN (NORMAL) 02/18/17 05:55 Anisocytosis 1+ 02/18/17 05:55 RBC Morph Micro Appear ABNORMAL (NORMAL) 02/18/17 05:55 Smear Path Review REVIEWED 02/22/17 06:15 Eos Smear Source URINE 02/14/17 17:40 Eos Smear Total Cells NONE SEEN (NONE SEEN) 02/14/17 17:40 PT 15.6 SECONDS (9.5-11.5) H 02/19/17 16:04 INR 1.47 (0.5-1.4) H 02/19/17 16:04 PTT (Actin FS) 29.9 SECONDS (26.0-38.0) 02/19/17 16:04 Specimen Source Arterial 02/14/17 16:00 Sample Site Right Radial 02/14/17 16:00 pH 7.40 (7.35-7.45) 02/14/17 16:00 pCO2 33.0 mmHg (35.0-45.0) L 02/14/17 16:00 pO2 103.0 mmHg (80.0-100.0) H 02/14/17 16:00 HCO3 22.1 mEq/L (20.0-26.0) 02/14/17 16:00 Base Excess -3.6 mEq/L (-3.0-3.0) L 02/14/17 16:00 O2 Saturation 98.0 % (92.0-100.0) 02/14/17 16:00 Robin Test Positive 02/14/17 16:00 Vent Rate 12 02/14/17 16:00 Inspired O2 40 02/14/17 16:00 Tidal Volume NA 02/14/17 16:00 PEEP 6 02/14/17 16:00 Pressure (ins/psv/peep) 6 02/14/17 16:00 Critical Value LZHANG 02/14/17 16:00 Sodium 135 mEq/L (136-145) L 02/22/17 06:15 Potassium 3.7 mEq/L (3.5-5.1) 02/22/17 06:15 Chloride 102 mEq/L (98-107) 02/22/17 06:15 Carbon Dioxide 18.2 mEq/L (21.0-31.0) L 02/22/17 06:15 Anion Gap 18.5 (7.0-16.0) H 02/22/17 06:15 BUN 48 mg/dL (7-25) H 02/22/17 06:15 Creatinine 1.8 mg/dL (0.6-1.2) H 02/22/17 06:15 Est GFR ( Amer) 36.3 ml/min (>90) 02/22/17 06:15 Est GFR (Non-Af Amer) 30.0 ml/min 02/22/17 06:15 BUN/Creatinine Ratio 26.7 02/22/17 06:15 Glucose 94 mg/dL (70-105) 02/22/17 06:15 POC Glucose 170 MG/DL (70 - 105) H 02/12/17 09:42 Hemoglobin A1c % 5.1 % (4.0-6.0) 02/11/17 08:11 Whole Bld Lactic Acid 1.29 mmol/L (0.60-1.99) 02/16/17 05:00 Uric Acid 11.2 mg/dL (2.3-6.6) H 02/15/17 05:00 Calcium 8.2 mg/dL (8.6-10.3) L 02/22/17 06:15 Phosphorus 3.8 mg/dL (2.5-5.0) 02/15/17 05:00 Magnesium 2.2 mg/dL (1.9-2.7) 02/19/17 05:40 Total Bilirubin 1.0 mg/dL (0.3-1.0) 02/22/17 06:15 AST 84 U/L (13-39) H 02/22/17 06:15 ALT 83 U/L (7-52) H 02/22/17 06:15 Alkaline Phosphatase 372 U/L (34-104) H 02/22/17 06:15 Creatine Kinase 67 U/L (30-223) 02/12/17 04:41 CK-MB (CK-2) 1.1 ng/mL (0.6-6.3) 02/09/17 20:27 Troponin I 0.01 ng/mL (0.01-0.05) 02/09/17 20:27 B-Natriuretic Peptide 556.0 pg/mL (5.0-100.0) H 02/22/17 06:15 Total Protein 5.7 gm/dL (6.0-8.3) L 02/22/17 06:15 Albumin 2.7 gm/dL (3.7-5.3) L 02/22/17 06:15 Globulin 3.0 gm/dL 02/22/17 06:15 Albumin/Globulin Ratio 0.9 (1.0-1.8) L 02/22/17 06:15 Amylase 23 U/L (29-103) L 02/13/17 05:03 Lipase 13 U/L (11-82) 02/13/17 05:03 Urine Source ZEE PORT 02/14/17 17:40 Urine Color YELLOW 02/14/17 17:40 Urine Clarity SLIGHT HAZY (CLEAR) 02/14/17 17:40 Urine pH 5.5 02/14/17 17:40 Ur Specific [place] 1.020 (1.005-1.030) 02/14/17 17:40 Urine Protein 100 mg/dL (NEGATIVE) H 02/14/17 17:40 Urine Glucose (UA) NEGATIVE mg/dL (NEGATIVE) 02/14/17 17:40 Urine Ketones NEGATIVE mg/dL (NEGATIVE) 02/14/17 17:40 Urine Blood MODERATE (NEGATIVE) H 02/14/17 17:40 Urine Nitrate NEGATIVE (NEGATIVE) 02/14/17 17:40 Urine Bilirubin NEGATIVE (NEGATIVE) 02/14/17 17:40 Urine Urobilinogen 0.2 E.U./dL (0.2 - 1.0) 02/14/17 17:40 Ur Leukocyte Esterase NEGATIVE (NEGATIVE) 02/14/17 17:40 Urine RBC 2-5 /hpf (0-5) 02/14/17 17:40 Urine WBC 2-5 /hpf (0-5) 02/14/17 17:40 Ur Epithelial Cells FEW /lpf (FEW) 02/14/17 17:40 Amorphous Sediment MANY URATES (NONE SEEN) 02/14/17 17:40 Urine Bacteria MODERATE /hpf (NONE SEEN) 02/14/17 17:40 Hyaline Casts 0-2 /lpf (0-2) H 02/09/17 21:05 Urine Yeast FEW /hpf (NONE SEEN) H 02/14/17 17:40 Ur Random Sodium 37 mmol/L 02/14/17 17:40 Urine Creatinine 32.9 mg/dl (Not Estab.) 02/14/17 21:55 Urine Microalbumin 332.1 ug/mL (Not Estab.) 02/14/17 21:55 Microalb/Creat Ratio 1009.4 mg/g creat (0.0-30.0) H 02/14/17 21:55 Stool Leukocyte NO WBC SEEN 02/12/17 00:05 Hepatitis A IgM Ab Negative (Negative) 02/19/17 06:00 Hep Bs Antigen Negative (Negative) 02/19/17 06:00 Hep B Core IgM Ab Negative (Negative) 02/19/17 06:00 Hepatitis C Antibody 0.1 s/co ratio (0.0-0.9) 02/19/17 06:00 - Physical Exam Vitals and I&O: Vital Signs Temp 97.7 F 02/22/17 07:29 Pulse 97 02/22/17 07:29 Resp 17 02/22/17 07:29 BP 94/67 02/22/17 09:38 Pulse Ox 98 02/22/17 07:29 Intake & Output 02/21/17 02/22/17 02/22/17 18:59 06:59 18:59 Intake Total 300 360 Balance 300 360 Weight (lbs) 79.832 kg Intake: Intake, IV Amount 300 300 Piperacillin Sodium/ 100 100 Tazobact 2.25 gm In Sodium Chloride 0.9% 50 ml @ 100 mls/hr IV Q6HR [facility] Rx#:[id number] metroNIDAZOLE 500mg/NS 200 200 100mL 500 mg In 100 ml @ 100 mls/hr IV Q8HR [facility] Rx #:[id number] Oral 60 Other: Stool Characteristics Soft Soft Formed Mucoid Brown Active Medications: Current Medications Acetaminophen (Tylenol) 650 mg PO Q4HR PRN PRN Reason: TEMP >100 OR PAIN Stop: 04/11/17 15:21 Acetaminophen/Codeine Phosphate (Tylenol W/Codeine #3) 1 tab PO Q6HR PRN PRN Reason: MODERATE PAIN Stop: 04/11/17 15:21 Last Admin: 02/18/17 05:19 Dose: 1 tab Acetaminophen/Hydrocodone Bitart ([place] 5mg/325mg) 2 tab PO Q4H PRN PRN Reason: Severe Pain Stop: 04/11/17 15:21 Last Admin: 02/18/17 08:48 Dose: 2 tab Albuterol Sulfate (Albuterol 2.5mg/3ml Neb Ud) 2.5 mg HHN Q4HRT PRN PRN Reason: Wheezing Stop: 04/13/17 08:21 Last Admin: 02/17/17 19:36 Dose: 2.5 mg Ascorbic Acid (Vitamin C) 500 mg PO DAILY [facility] Stop: 04/12/17 08:59 Last Admin: 02/22/17 09:42 Dose: 500 mg Atorvastatin Calcium (Lipitor) 10 mg PO HS [facility] PRN Reason: Protocol Stop: 04/11/17 20:59 Last Admin: 02/21/17 21:32 Dose: 10 mg Furosemide (Lasix) 40 mg IVP BID [facility] Stop: 04/19/17 16:59 Last Admin: 02/22/17 09:38 Dose: 40 mg Heparin Sodium (Porcine) (Heparin) 5,000 units SUBQ Q12HR [facility] Stop: 04/22/17 20:59 Last Admin: 02/22/17 09:39 Dose: 5,000 units Sodium Chloride (Nacl 0.45%) 1,000 mls @ 0 mls/hr IV .Q0M [facility] PRN Reason: KVO Stop: 04/15/17 10:13 Last Admin: 02/14/17 11:04 Dose: 10 mls/hr Metronidazole (Flagyl) 500 mg in 100 mls @ 100 mls/hr IV Q8HR [facility] Stop: 04/19/17 21:59 Last Admin: 02/22/17 14:01 Dose: 100 mls/hr Piperacillin Sod/Tazobactam (Sod 2.25 gm/ Sodium Chloride) 50 mls @ 100 mls/hr IV Q6HR [facility] Stop: 04/21/17 17:59 Last Admin: 02/22/17 13:05 Dose: 100 mls/hr Methylprednisolone Sodium Succinate (Solu-Medrol) 20 mg IVP Q8HR [facility] Stop: 04/14/17 12:59 Last Admin: 02/22/17 14:00 Dose: 20 mg Miscellaneous (Probiotic Screen) 1 ea MC PRN PRN PRN Reason: PROTOCOL Stop: 04/12/17 09:13 Miscellaneous (Clinical Monitoring) 1 ea MC DAILY PRN PRN Reason: RENAL Stop: 04/19/17 12:28 Ondansetron HCl (Zofran) 4 mg IV Q8H PRN PRN Reason: Nausea / Vomiting Stop: 04/11/17 08:23 Last Admin: 02/16/17 09:10 Dose: 4 mg Pantoprazole Sodium (Protonix) 40 mg PO DAILY PATRICIA Stop: 04/12/17 08:59 Last Admin: 02/22/17 09:42 Dose: 40 mg Potassium Chloride (Klor-Con) 20 meq PO DAILY PATRICIA Stop: 04/17/17 08:59 Last Admin: 02/22/17 09:42 Dose: 20 meq General: Alert, Mild distress HEENT: Atraumatic, PERRLA, EOMI, Mucous membr. moist/pink Neck: Supple, +2 carotid pulse wo bruit Cardiovascular: Regular rate, Normal S1, Normal S2 Lungs: Other (few rhonchi) Abdomen: Bowel sounds, Soft Extremities: no Edema Neurological: Sensation intact Skin: no Rash Psych/Mental Status: Mood NL - Procedures Procedures: Procedures Procedure Code Date INSERT TUNNELED CV CATH [id number] 02/09/17 INSERTION OF INFUSION DEV INTO L SUBCLAV VEIN, PERC APPROACH [id number] 02/09/17 Assessment/Plan - Problem List Patient Problems: All Active Problems NAUSEA AND VOMITING WITH DEHYDRATION (Acute) sepsis (Acute) Sepsis affecting skin (Acute) L02.91 - Assessment Assessment: * Reactive leukocytosis improving on antibiotics * 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 DVT proph Nutritional Asmnt/Malnutr-PDOC - Dietary Evaluation Malnutrition Findings (Please click <Entered> for more info): Nutritional Asmnt/Malnutrition Start: 02/14/17 13: 04 Text: Status: Complete Freq: Document 02/14/17 13:05 GSUN (Rec: 02/14/17 13:21 GSCB [id number]) Nutritional Asmnt/Malnutrition Patient General Information Nutritional Screening Moderate Risk Screening Pertinent Medical Hx/Surgical Hx Dx: Septic shock, hypotension, dehydration, metabolic acidosis improved, SU ?ATN, suspect aspiration PNA HTN, left knee prothesis, dyslipidemia, anemia Subjective Information 66 year old female, Portuguese speaking. Pt was receiving breathing treatment during [facility] visit. Observed clear liquid tray at bedside. MD progress note 02/13: DC NG tube and start PO as tolerated. Spoke to RN STEFANIE Mayorga stated for breakfast pt tolerated 2 juices, declined broth, RN will remove mask and encourage lunch shortly. No significant wasting noted. 02/11 KUB: mild ielus. Current Diet Order/ Nutrition Support Clear liquid Pertinent Medications Vitamin C, Lipitor, Culturelle , Solu-Medrol, Zofran, Protonix, Nacl 0.45% Pertinent Labs 02/13: potassium 3L 02/14: BUN 30H, creatinine 1.8H (declining) Nutritional Hx/Data Height 1.68 m Height (Calculated Centimeters) 167.6 Current Weight (lbs) 75.75 kg Weight (Calculated Kilograms) 75.7 Weight (Calculated Grams) 40679.9 [place] Body Weight 130 Weight Status Overweight GI Symptoms Skin Integrity/Comment: Josias 14. Non-pitting edema bilateral feet. 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 Estimated Nutritional Goals Calories/Kcals/Kg IBW 130lb/59.1kg Kcals Calculated 1478-1773kcal (25-30kcal/kg) Protein Calculated 59g (1g/kg) Fluid: ml 1478-1773ml (1ml/kcal) Nutritional Problem 1. Problem Problem Impaired nutrient utilization related to Etiology renal dysfunction, per MD note SU ?ATN Signs/Symptoms: BUN 30H, creatinine 1.8H Intervention/Recommendation Comments 1. Recommend advance diet as tolerated to low sodium diet, to aid in renal function. No renal restriction due to hx of hypokalemia. Expected Outcomes/Goals Expected Outcomes/Goals 1. Pt to resume diet and meet at least 75% fo estimated nutritional needs.
--- NOTE | 2017-02-22 17:56 | General Progress Note ---
Subjective - Review of Systems Service Date: 02/22/17 Subjective: More awake, verbal, mild tachypnea, eating better Objective - Results Result Diagrams: 02/22/17 06:15 02/22/17 06:15 Recent Labs: Laboratory Last Values WBC 26.2 Th/cmm (4.8-10.8) H* D 02/22/17 06:15 Corrected WBC (auto) 52.5 Th/cmm (4.8-10.8) H* 02/19/17 09:00 RBC 4.02 Mil/cmm (3.80-5.20) 02/22/17 06:15 Hgb 11.6 gm/dL (11.7-16.1) L 02/22/17 06:15 Hct 33.7 % (35.0-45.0) L 02/22/17 06:15 MCV 83.8 fl (81-100) 02/22/17 06:15 MCH 28.8 pg (27.0-31.0) 02/22/17 06:15 MCHC Differential 34.3 pg (28.0-36.0) 02/22/17 06:15 RDW 18.5 % (11.5-20.0) 02/22/17 06:15 Plt Count 279 Th/cmm (150-400) D 02/22/17 06:15 MPV 8.9 fl 02/22/17 06:15 Neutrophils % 84.8 % (40.0-80.0) H 02/16/17 05:00 Band Neutrophils % 4 % (0-10) 02/22/17 06:15 Lymphocytes % 10.0 % (20.0-50.0) L 02/16/17 05:00 Monocytes % 2.7 % (2.0-10.0) 02/16/17 05:00 Eosinophils % 0.1 % (0.0-5.0) 02/16/17 05:00 Basophils % 2.4 % (0.0-2.0) H 02/16/17 05:00 Neutrophils (Manual) 87 % (40-80) H 02/22/17 06:15 Lymphocytes 4 % (20-50) L 02/22/17 06:15 Monocytes 5 % (2-10) 02/22/17 06:15 Eosinophils 1 % (0-5) 02/15/17 05:00 Basophils 1 % (0-3) 02/09/17 20:27 Nucleated RBCs 6.0 % (0-0) H 02/19/17 09:00 Platelet Estimate ADEQUATE (NORMAL) 02/22/17 06:15 Platelet Morphology PLATELET CLUMPS SEEN (NORMAL) 02/18/17 05:55 Anisocytosis 1+ 02/18/17 05:55 RBC Morph Micro Appear ABNORMAL (NORMAL) 02/18/17 05:55 Smear Path Review REVIEWED 02/22/17 06:15 Eos Smear Source URINE 02/14/17 17:40 Eos Smear Total Cells NONE SEEN (NONE SEEN) 02/14/17 17:40 PT 15.6 SECONDS (9.5-11.5) H 02/19/17 16:04 INR 1.47 (0.5-1.4) H 02/19/17 16:04 PTT (Actin FS) 29.9 SECONDS (26.0-38.0) 02/19/17 16:04 Specimen Source Arterial 02/14/17 16:00 Sample Site Right Radial 02/14/17 16:00 pH 7.40 (7.35-7.45) 02/14/17 16:00 pCO2 33.0 mmHg (35.0-45.0) L 02/14/17 16:00 pO2 103.0 mmHg (80.0-100.0) H 02/14/17 16:00 HCO3 22.1 mEq/L (20.0-26.0) 02/14/17 16:00 Base Excess -3.6 mEq/L (-3.0-3.0) L 02/14/17 16:00 O2 Saturation 98.0 % (92.0-100.0) 02/14/17 16:00 Robin Test Positive 02/14/17 16:00 Vent Rate 12 02/14/17 16:00 Inspired O2 40 02/14/17 16:00 Tidal Volume NA 02/14/17 16:00 PEEP 6 02/14/17 16:00 Pressure (ins/psv/peep) 6 02/14/17 16:00 Critical Value LZHANG 02/14/17 16:00 Sodium 135 mEq/L (136-145) L 02/22/17 06:15 Potassium 3.7 mEq/L (3.5-5.1) 02/22/17 06:15 Chloride 102 mEq/L (98-107) 02/22/17 06:15 Carbon Dioxide 18.2 mEq/L (21.0-31.0) L 02/22/17 06:15 Anion Gap 18.5 (7.0-16.0) H 02/22/17 06:15 BUN 48 mg/dL (7-25) H 02/22/17 06:15 Creatinine 1.8 mg/dL (0.6-1.2) H 02/22/17 06:15 Est GFR ( Amer) 36.3 ml/min (>90) 02/22/17 06:15 Est GFR (Non-Af Amer) 30.0 ml/min 02/22/17 06:15 BUN/Creatinine Ratio 26.7 02/22/17 06:15 Glucose 94 mg/dL (70-105) 02/22/17 06:15 POC Glucose 170 MG/DL (70 - 105) H 02/12/17 09:42 Hemoglobin A1c % 5.1 % (4.0-6.0) 02/11/17 08:11 Whole Bld Lactic Acid 1.29 mmol/L (0.60-1.99) 02/16/17 05:00 Uric Acid 11.2 mg/dL (2.3-6.6) H 02/15/17 05:00 Calcium 8.2 mg/dL (8.6-10.3) L 02/22/17 06:15 Phosphorus 3.8 mg/dL (2.5-5.0) 02/15/17 05:00 Magnesium 2.2 mg/dL (1.9-2.7) 02/19/17 05:40 Total Bilirubin 1.0 mg/dL (0.3-1.0) 02/22/17 06:15 AST 84 U/L (13-39) H 02/22/17 06:15 ALT 83 U/L (7-52) H 02/22/17 06:15 Alkaline Phosphatase 372 U/L (34-104) H 02/22/17 06:15 Creatine Kinase 67 U/L (30-223) 02/12/17 04:41 CK-MB (CK-2) 1.1 ng/mL (0.6-6.3) 02/09/17 20:27 Troponin I 0.01 ng/mL (0.01-0.05) 02/09/17 20:27 B-Natriuretic Peptide 556.0 pg/mL (5.0-100.0) H 02/22/17 06:15 Total Protein 5.7 gm/dL (6.0-8.3) L 02/22/17 06:15 Albumin 2.7 gm/dL (3.7-5.3) L 02/22/17 06:15 Globulin 3.0 gm/dL 02/22/17 06:15 Albumin/Globulin Ratio 0.9 (1.0-1.8) L 02/22/17 06:15 Amylase 23 U/L (29-103) L 02/13/17 05:03 Lipase 13 U/L (11-82) 02/13/17 05:03 Urine Source ZEE PORT 02/14/17 17:40 Urine Color YELLOW 02/14/17 17:40 Urine Clarity SLIGHT HAZY (CLEAR) 02/14/17 17:40 Urine pH 5.5 02/14/17 17:40 Ur Specific [employer] 1.020 (1.005-1.030) 02/14/17 17:40 Urine Protein 100 mg/dL (NEGATIVE) H 02/14/17 17:40 Urine Glucose (UA) NEGATIVE mg/dL (NEGATIVE) 02/14/17 17:40 Urine Ketones NEGATIVE mg/dL (NEGATIVE) 02/14/17 17:40 Urine Blood MODERATE (NEGATIVE) H 02/14/17 17:40 Urine Nitrate NEGATIVE (NEGATIVE) 02/14/17 17:40 Urine Bilirubin NEGATIVE (NEGATIVE) 02/14/17 17:40 Urine Urobilinogen 0.2 E.U./dL (0.2 - 1.0) 02/14/17 17:40 Ur Leukocyte Esterase NEGATIVE (NEGATIVE) 02/14/17 17:40 Urine RBC 2-5 /hpf (0-5) 02/14/17 17:40 Urine WBC 2-5 /hpf (0-5) 02/14/17 17:40 Ur Epithelial Cells FEW /lpf (FEW) 02/14/17 17:40 Amorphous Sediment MANY URATES (NONE SEEN) 02/14/17 17:40 Urine Bacteria MODERATE /hpf (NONE SEEN) 02/14/17 17:40 Hyaline Casts 0-2 /lpf (0-2) H 02/09/17 21:05 Urine Yeast FEW /hpf (NONE SEEN) H 02/14/17 17:40 Ur Random Sodium 37 mmol/L 02/14/17 17:40 Urine Creatinine 32.9 mg/dl (Not Estab.) 02/14/17 21:55 Urine Microalbumin 332.1 ug/mL (Not Estab.) 02/14/17 21:55 Microalb/Creat Ratio 1009.4 mg/g creat (0.0-30.0) H 02/14/17 21:55 Stool Leukocyte NO WBC SEEN 02/12/17 00:05 Hepatitis A IgM Ab Negative (Negative) 02/19/17 06:00 Hep Bs Antigen Negative (Negative) 02/19/17 06:00 Hep B Core IgM Ab Negative (Negative) 02/19/17 06:00 Hepatitis C Antibody 0.1 s/co ratio (0.0-0.9) 02/19/17 06:00 - Physical Exam Vitals and I&O: Vital Signs Temp 97.7 F 02/22/17 07:29 Pulse 95 02/22/17 08:30 Resp 20 02/22/17 08:30 BP 94/67 02/22/17 09:38 Pulse Ox 97 02/22/17 08:30 Intake & Output 02/21/17 02/22/17 02/22/17 18:59 06:59 18:59 Intake Total 300 360 Balance 300 360 Weight (lbs) 79.832 kg Intake: Intake, IV Amount 300 300 Piperacillin Sodium/ 100 100 Tazobact 2.25 gm In Sodium Chloride 0.9% 50 ml @ 100 mls/hr IV Q6HR PATRICIA Rx#:[id number] metroNIDAZOLE 500mg/NS 200 200 100mL 500 mg In 100 ml @ 100 mls/hr IV Q8HR PATRICIA Rx #:[id number] Oral 60 Other: Stool Characteristics Soft Soft Formed Mucoid Brown Active Medications: Current Medications Acetaminophen (Tylenol) 650 mg PO Q4HR PRN PRN Reason: TEMP >100 OR PAIN Stop: 04/11/17 15:21 Acetaminophen/Codeine Phosphate (Tylenol W/Codeine #3) 1 tab PO Q6HR PRN PRN Reason: MODERATE PAIN Stop: 04/11/17 15:21 Last Admin: 02/18/17 05:19 Dose: 1 tab Acetaminophen/Hydrocodone Bitart ([place] 5mg/325mg) 2 tab PO Q4H PRN PRN Reason: Severe Pain Stop: 04/11/17 15:21 Last Admin: 02/18/17 08:48 Dose: 2 tab Albuterol Sulfate (Albuterol 2.5mg/3ml Neb Ud) 2.5 mg HHN Q4HRT PRN PRN Reason: Wheezing Stop: 04/13/17 08:21 Last Admin: 02/17/17 19:36 Dose: 2.5 mg Ascorbic Acid (Vitamin C) 500 mg PO DAILY PATRICIA Stop: 04/12/17 08:59 Last Admin: 02/22/17 09:42 Dose: 500 mg Atorvastatin Calcium (Lipitor) 10 mg PO HS PATRICIA PRN Reason: Protocol Stop: 04/11/17 20:59 Last Admin: 02/21/17 21:32 Dose: 10 mg Furosemide (Lasix) 40 mg IVP BID [facility] Stop: 04/19/17 16:59 Last Admin: 02/22/17 09:38 Dose: 40 mg Heparin Sodium (Porcine) (Heparin) 5,000 units SUBQ Q12HR PATRICIA Stop: 04/22/17 20:59 Last Admin: 02/22/17 09:39 Dose: 5,000 units Sodium Chloride (Nacl 0.45%) 1,000 mls @ 0 mls/hr IV .Q0M PATRICIA PRN Reason: KVO Stop: 04/15/17 10:13 Last Admin: 02/14/17 11:04 Dose: 10 mls/hr Metronidazole (Flagyl) 500 mg in 100 mls @ 100 mls/hr IV Q8HR [facility] Stop: 04/19/17 21:59 Last Admin: 02/22/17 14:01 Dose: 100 mls/hr Piperacillin Sod/Tazobactam (Sod 2.25 gm/ Sodium Chloride) 50 mls @ 100 mls/hr IV Q6HR [facility] Stop: 04/21/17 17:59 Last Admin: 02/22/17 13:05 Dose: 100 mls/hr Methylprednisolone Sodium Succinate (Solu-Medrol) 20 mg IVP Q8HR [facility] Stop: 04/14/17 12:59 Last Admin: 02/22/17 14:00 Dose: 20 mg Miscellaneous (Probiotic Screen) 1 ea MC PRN PRN PRN Reason: PROTOCOL Stop: 04/12/17 09:13 Miscellaneous (Clinical Monitoring) 1 ea MC DAILY PRN PRN Reason: RENAL Stop: 04/19/17 12:28 Ondansetron HCl (Zofran) 4 mg IV Q8H PRN PRN Reason: Nausea / Vomiting Stop: 04/11/17 08:23 Last Admin: 02/16/17 09:10 Dose: 4 mg Pantoprazole Sodium (Protonix) 40 mg PO DAILY PATRICIA Stop: 04/12/17 08:59 Last Admin: 02/22/17 09:42 Dose: 40 mg Potassium Chloride (Klor-Con) 20 meq PO DAILY [facility] Stop: 04/17/17 08:59 Last Admin: 02/22/17 09:42 Dose: 20 meq General: Alert, Mild distress HEENT: Atraumatic, PERRLA, EOMI, Mucous membr. moist/pink Neck: Supple, +2 carotid pulse wo bruit Cardiovascular: Regular rate, Normal S1, Normal S2 Lungs: Other (few rhonchi) Abdomen: Bowel sounds, Soft Extremities: no Edema Neurological: Sensation intact Skin: no Rash Psych/Mental Status: Mood NL - Procedures Procedures: Procedures Procedure Code Date INSERT TUNNELED CV CATH [id number] 02/09/17 INSERTION OF INFUSION DEV INTO L SUBCLAV VEIN, PERC APPROACH [id number] 02/09/17 Assessment/Plan - Problem List Patient Problems: All Active Problems NAUSEA AND VOMITING WITH DEHYDRATION (Acute) sepsis (Acute) Sepsis affecting skin (Acute) L02.91 - Assessment Assessment: Acute kidney injury secondary to acute tubular injury Fractional excretion of sodium is 1.1% suggestive of intrinsic renal failure Shock secondary to sepsis Distended gallbladder with normal acute cholecystitis Abdominal pain secondary to ileus Ileus secondary to sepsis Acute decompensation of systolic congestive heart failure(EJF 15-20%) Respiratory failure secondary to aspiration pneumonia/CHF Anemia of chronic kidney disease Dyslipidemia Status post Infected prosthesis left knee, status post I&D Purely anion gap metabolic acidosis with respiratory alkalosis Sepsis secondary to aspiration pneumonia Worsening liver enzymes due to sepsis, medications, hypotension Acalculous Cholecystitis - Plan Plan: Lab - Result Diagrams 02/15/17 05:00 02/15/17 05:00 Current Medications Acetaminophen (Tylenol) 650 mg PO Q4HR PRN PRN Reason: TEMP >100 OR PAIN Stop: 04/11/17 15:21 Acetaminophen/Codeine Phosphate (Tylenol W/Codeine #3) 1 tab PO Q6HR PRN PRN Reason: MODERATE PAIN Stop: 04/11/17 15:21 Last Admin: 02/14/17 02:08 Dose: 1 tab Acetaminophen/Hydrocodone Bitart ([place] 5mg/325mg) 2 tab PO Q4H PRN PRN Reason: Severe Pain Stop: 04/11/17 15:21 Last Admin: 02/15/17 00:06 Dose: 2 tab Albuterol Sulfate (Albuterol 2.5mg/3ml Neb Ud) 2.5 mg HHN Q4HRT PRN PRN Reason: Wheezing Stop: 04/13/17 08:21 Last Admin: 02/14/17 15:54 Dose: 2.5 mg Ascorbic Acid (Vitamin C) 500 mg PO DAILY PATRICIA Stop: 04/12/17 08:59 Last Admin: 02/15/17 09:33 Dose: 500 mg Atorvastatin Calcium (Lipitor) 10 mg PO HS PATRICIA PRN Reason: Protocol Stop: 04/11/17 20:59 Last Admin: 02/14/17 20:49 Dose: 10 mg Furosemide (Lasix) 40 mg IVP BID PATRICIA Stop: 04/14/17 08:59 Last Admin: 02/15/17 09:33 Dose: 40 mg Piperacillin Sod/Tazobactam (Sod 4.5 gm/ Sodium Chloride) 100 mls @ 100 mls/hr IV Q8HR PATRICIA Stop: 04/11/17 13:59 Last Admin: 02/15/17 05:23 Dose: 100 mls/hr Norepinephrine Bitartrate 8 mg (/ Dextrose) 258 mls @ 77.4 mls/hr IV TITR PRN; Protocol; 40 MCG/MIN PRN Reason: BP MAINTENANCE (PER PROTOCOL) Stop: 04/12/17 07:46 Last Admin: 02/15/17 01:45 Dose: 5.16 mcg/min, 9.98 mls/hr Diltiazem HCl 125 mg/ Dextrose 125 mls @ 10 mls/hr IV TITR PATRICIA; 10 MG/HR PRN Reason: Protocol Stop: 04/15/17 04:29 Last Titration: 02/15/17 10:18 Dose: Infused Sodium Chloride (Nacl 0.45%) 1,000 mls @ 0 mls/hr IV .Q0M PATRICIA PRN Reason: KVO Stop: 04/15/17 10:13 Last Admin: 02/14/17 11:04 Dose: 10 mls/hr Lactobacillus Rhamnosus (Culturelle) 1 each PO DAILY PATRICIA Stop: 04/13/17 08:59 Last Admin: 02/15/17 09:33 Dose: 1 each Methylprednisolone Sodium Succinate (Solu-Medrol) 20 mg IVP Q8HR PATRICIA Stop: 04/14/17 12:59 Last Admin: 02/15/17 05:23 Dose: 20 mg Miscellaneous (Probiotic Screen) 1 ea MC PRN PRN PRN Reason: PROTOCOL Stop: 04/12/17 09:13 Ondansetron HCl (Zofran) 4 mg IV Q8H PRN PRN Reason: Nausea / Vomiting Stop: 04/11/17 08:23 Last Admin: 02/12/17 00:59 Dose: 4 mg Pantoprazole Sodium (Protonix) 40 mg PO DAILY PATRICIA Stop: 04/12/17 08:59 Last Admin: 02/15/17 09:32 Dose: 40 mg Kidney function better with a BUN/creatinine of 48/1.8, had dialysis last nite Chest x-ray basically the same with bilateral effusions, pulmonary congestion, left density Continue diuretics for now due to CHF, elevated BNP(2860) Off Levophed Monitor electrolytes and CBC along with chest x-ray Replace potassium and magnesium White count continues to improve @ 26.2 Liver enzymes slightly improved Echo revealed ejection fraction 15-20% with RVSP of 24.5, consider AICD, Bivent pacer Kidney fnc & BNP improving, hold HD for now Nutritional Asmnt/Malnutr-PDOC - Dietary Evaluation Malnutrition Findings (Please click <Entered> for more info): Nutritional Asmnt/Malnutrition Start: 02/14/17 13: 04 Text: Status: Complete Freq: Document 02/14/17 13:05 GSUN (Rec: 02/14/17 13:21 GSUN [id number]) Nutritional Asmnt/Malnutrition Patient General Information Nutritional Screening Moderate Risk Screening Pertinent Medical Hx/Surgical Hx Dx: Septic shock, hypotension, dehydration, metabolic acidosis improved, SU ?ATN, suspect aspiration PNA HTN, left knee prothesis, dyslipidemia, anemia Subjective Information 66 year old female, Niuean speaking. [facility] Observed clear liquid tray at bedside. progress note 02/13: DC NG tube and start PO as tolerated. Spoke to RN STEFANIE Mayorga stated for breakfast pt tolerated 2 juices, declined broth, RN will remove mask and encourage lunch shortly. No significant wasting noted. 02/11 KUB: mild ielus. Current Diet Order/ Nutrition Support Clear liquid Pertinent Medications Vitamin C, Lipitor, Culturelle , Solu-Medrol, Zofran, Protonix, Nacl 0.45% Pertinent Labs 02/13: potassium 3L 02/14: BUN 30H, creatinine 1.8H (declining) Nutritional Hx/Data Height 1.68 m Height (Calculated Centimeters) 167.6 Current Weight (lbs) 75.75 kg Weight (Calculated Kilograms) 75.7 Weight (Calculated Grams) 44939.9 [place] Body Weight 130 Weight Status Overweight GI Symptoms Skin Integrity/Comment: Josias 14. Non-pitting edema bilateral feet. diet supervisor: skin tears. Estimated Nutritional Goals Calories/Kcals/Kg IBW 130lb/59.1kg Kcals Calculated 1478-1773kcal (25-30kcal/kg) Protein Calculated 59g (1g/kg) Fluid: ml 1478-1773ml (1ml/kcal) Nutritional Problem 1. Problem Problem Impaired nutrient utilization related to Etiology renal dysfunction, per MD note SU ?ATN Signs/Symptoms: BUN 30H, creatinine 1.8H Intervention/Recommendation Comments 1. Recommend advance diet as tolerated to low sodium diet, to aid in renal function. No renal restriction due to hx of hypokalemia. Expected Outcomes/Goals Expected Outcomes/Goals 1. Pt to resume diet and meet at least 75% fo estimated nutritional needs.
[2017-02-22] MEDS: Atorvastatin Calcium 10 MG TAB PO SCH (20:49)
[2017-02-23] MEDS: metroNIDAZOLE 500mg/NS 100mL 500 MG/100 ML BAG IV SCH ×3 (04:15→21:08)
[2017-02-23] MEDS: methylPREDNISolone SS 40 mg Vial IVP SCH ×3 (04:16→21:07)
[2017-02-23 06:22] LABS: HEMATOCRIT 31.2 % (35.0-45.0); HEMOGLOBIN 10.7 gm/dL (11.7-16.1); MEAN CELL VOLUME 83.8 fl (81-100); MEAN CORPUSCULAR HEMOGLOBIN 28.7 pg (27.0-31.0); MEAN CORPUSCULAR HGB CONC 34.2 pg (28.0-36.0); MEAN PLATELET VOLUME 8.8 fl; PLATELET COUNT 256 Th/cmm (150-400); RED BLOOD COUNT 3.72 Mil/cmm (3.80-5.20); RED CELL DISTRIBUTION WIDTH 19.1 % (11.5-20.0)
[2017-02-23] MEDS: Piperacillin/Tazobact 2.25 gm in 0.9% NS 50 ML IV SCH ×3 (06:33→17:34)
[2017-02-23 06:44] LABS: ANION GAP 13.5 (7.0-16.0); BILIRUBIN,TOTAL 0.9 mg/dL (0.3-1.0); CALCIUM SERUM 8.2 mg/dL (8.6-10.3); CARBON DIOXIDE 20.2 mEq/L (21.0-31.0); CREATININE - SERUM 1.5 mg/dL (0.6-1.2); POTASSIUM SERUM 3.7 mEq/L (3.5-5.1)
[2017-02-23 07:53] LABS: WHITE BLOOD COUNT 17.4 Th/cmm (4.8-10.8)
[2017-02-23] MEDS: Multivitamin w/ Minerals Tab PO SCH (08:58)
[2017-02-23] MEDS: Pantoprazole 40 mg EC Tab PO SCH (08:59)
[2017-02-23] MEDS: Potassium Chloride 20 mEq ER Tab PO SCH (08:59)
[2017-02-23 09:05] LABS: BAND NEUTROPHILE 10 % (0-10); METAMYELOCYTE 1 % (0-0); NEUTROPHILS 77 % (40-80); TOTAL CELLS COUNTED 100
[2017-02-23 09:06] LABS: PLATELET ESTIMATE ADEQUATE (NORMAL); PLATELET MORPHOLOGY NORMAL (NORMAL)
--- NOTE | 2017-02-23 12:15 | General Progress Note ---
Subjective - Review of Systems Service Date: 02/23/17 Objective - Results Result Diagrams: 02/23/17 05:40 02/23/17 05:40 Recent Labs: Laboratory Last Values WBC 17.4 Th/cmm (4.8-10.8) H D 02/23/17 05:40 Corrected WBC (auto) 52.5 Th/cmm (4.8-10.8) H* 02/19/17 09:00 RBC 3.72 Mil/cmm (3.80-5.20) L 02/23/17 05:40 Hgb 10.7 gm/dL (11.7-16.1) L 02/23/17 05:40 Hct 31.2 % (35.0-45.0) L 02/23/17 05:40 MCV 83.8 fl (81-100) 02/23/17 05:40 MCH 28.7 pg (27.0-31.0) 02/23/17 05:40 MCHC Differential 34.2 pg (28.0-36.0) 02/23/17 05:40 RDW 19.1 % (11.5-20.0) 02/23/17 05:40 Plt Count 256 Th/cmm (150-400) 02/23/17 05:40 MPV 8.8 fl 02/23/17 05:40 Neutrophils % 84.8 % (40.0-80.0) H 02/16/17 05:00 Band Neutrophils % 10 % (0-10) 02/23/17 05:40 Lymphocytes % 10.0 % (20.0-50.0) L 02/16/17 05:00 Monocytes % 2.7 % (2.0-10.0) 02/16/17 05:00 Eosinophils % 0.1 % (0.0-5.0) 02/16/17 05:00 Basophils % 2.4 % (0.0-2.0) H 02/16/17 05:00 Neutrophils (Manual) 77 % (40-80) 02/23/17 05:40 Lymphocytes 5 % (20-50) L 02/23/17 05:40 Monocytes 7 % (2-10) 02/23/17 05:40 Eosinophils 1 % (0-5) 02/15/17 05:00 Basophils 1 % (0-3) 02/09/17 20:27 Metamyelocytes 1 % (0-0) H 02/23/17 05:40 Nucleated RBCs 1.0 % (0-0) H 02/23/17 05:40 Platelet Estimate ADEQUATE (NORMAL) 02/23/17 05:40 Platelet Morphology NORMAL (NORMAL) 02/23/17 05:40 Anisocytosis 1+ 02/18/17 05:55 RBC Morph Micro Appear NORMAL (NORMAL) 02/23/17 05:40 Smear Path Review REVIEWED 02/22/17 06:15 Eos Smear Source URINE 02/14/17 17:40 Eos Smear Total Cells NONE SEEN (NONE SEEN) 02/14/17 17:40 PT 15.6 SECONDS (9.5-11.5) H 02/19/17 16:04 INR 1.47 (0.5-1.4) H 02/19/17 16:04 PTT (Actin FS) 29.9 SECONDS (26.0-38.0) 02/19/17 16:04 Specimen Source Arterial 02/14/17 16:00 Sample Site Right Radial 02/14/17 16:00 pH 7.40 (7.35-7.45) 02/14/17 16:00 pCO2 33.0 mmHg (35.0-45.0) L 02/14/17 16:00 pO2 103.0 mmHg (80.0-100.0) H 02/14/17 16:00 HCO3 22.1 mEq/L (20.0-26.0) 02/14/17 16:00 Base Excess -3.6 mEq/L (-3.0-3.0) L 02/14/17 16:00 O2 Saturation 98.0 % (92.0-100.0) 02/14/17 16:00 Robin Test Positive 02/14/17 16:00 Vent Rate 12 02/14/17 16:00 Inspired O2 40 02/14/17 16:00 Tidal Volume NA 02/14/17 16:00 PEEP 6 02/14/17 16:00 Pressure (ins/psv/peep) 6 02/14/17 16:00 Critical Value LZHANG 02/14/17 16:00 Sodium 137 mEq/L (136-145) 02/23/17 05:40 Potassium 3.7 mEq/L (3.5-5.1) 02/23/17 05:40 Chloride 107 mEq/L (98-107) 02/23/17 05:40 Carbon Dioxide 20.2 mEq/L (21.0-31.0) L 02/23/17 05:40 Anion Gap 13.5 (7.0-16.0) 02/23/17 05:40 BUN 45 mg/dL (7-25) H 02/23/17 05:40 Creatinine 1.5 mg/dL (0.6-1.2) H 02/23/17 05:40 Est GFR ( Amer) 44.8 ml/min (>90) 02/23/17 05:40 Est GFR (Non-Af Amer) 37.0 ml/min 02/23/17 05:40 BUN/Creatinine Ratio 30.0 02/23/17 05:40 Glucose 114 mg/dL (70-105) H 02/23/17 05:40 POC Glucose 170 MG/DL (70 - 105) H 02/12/17 09:42 Hemoglobin A1c % 5.1 % (4.0-6.0) 02/11/17 08:11 Whole Bld Lactic Acid 1.29 mmol/L (0.60-1.99) 02/16/17 05:00 Uric Acid 11.2 mg/dL (2.3-6.6) H 02/15/17 05:00 Calcium 8.2 mg/dL (8.6-10.3) L 02/23/17 05:40 Phosphorus 3.8 mg/dL (2.5-5.0) 02/15/17 05:00 Magnesium 2.2 mg/dL (1.9-2.7) 02/19/17 05:40 Total Bilirubin 0.9 mg/dL (0.3-1.0) 02/23/17 05:40 AST 66 U/L (13-39) H 02/23/17 05:40 ALT 69 U/L (7-52) H 02/23/17 05:40 Alkaline Phosphatase 312 U/L (34-104) H 02/23/17 05:40 Creatine Kinase 67 U/L (30-223) 02/12/17 04:41 CK-MB (CK-2) 1.1 ng/mL (0.6-6.3) 02/09/17 20:27 Troponin I 0.01 ng/mL (0.01-0.05) 02/09/17 20:27 B-Natriuretic Peptide 725.0 pg/mL (5.0-100.0) H 02/23/17 05:40 Total Protein 5.6 gm/dL (6.0-8.3) L 02/23/17 05:40 Albumin 2.8 gm/dL (3.7-5.3) L 02/23/17 05:40 Globulin 2.8 gm/dL 02/23/17 05:40 Albumin/Globulin Ratio 1.0 (1.0-1.8) 02/23/17 05:40 Amylase 23 U/L (29-103) L 02/13/17 05:03 Lipase 13 U/L (11-82) 02/13/17 05:03 Urine Source ZEE PORT 02/14/17 17:40 Urine Color YELLOW 02/14/17 17:40 Urine Clarity SLIGHT HAZY (CLEAR) 02/14/17 17:40 Urine pH 5.5 02/14/17 17:40 Ur Specific [place] 1.020 (1.005-1.030) 02/14/17 17:40 Urine Protein 100 mg/dL (NEGATIVE) H 02/14/17 17:40 Urine Glucose (UA) NEGATIVE mg/dL (NEGATIVE) 02/14/17 17:40 Urine Ketones NEGATIVE mg/dL (NEGATIVE) 02/14/17 17:40 Urine Blood MODERATE (NEGATIVE) H 02/14/17 17:40 Urine Nitrate NEGATIVE (NEGATIVE) 02/14/17 17:40 Urine Bilirubin NEGATIVE (NEGATIVE) 02/14/17 17:40 Urine Urobilinogen 0.2 E.U./dL (0.2 - 1.0) 02/14/17 17:40 Ur Leukocyte Esterase NEGATIVE (NEGATIVE) 02/14/17 17:40 Urine RBC 2-5 /hpf (0-5) 02/14/17 17:40 Urine WBC 2-5 /hpf (0-5) 02/14/17 17:40 Ur Epithelial Cells FEW /lpf (FEW) 02/14/17 17:40 Amorphous Sediment MANY URATES (NONE SEEN) 02/14/17 17:40 Urine Bacteria MODERATE /hpf (NONE SEEN) 02/14/17 17:40 Hyaline Casts 0-2 /lpf (0-2) H 02/09/17 21:05 Urine Yeast FEW /hpf (NONE SEEN) H 02/14/17 17:40 Ur Random Sodium 37 mmol/L 02/14/17 17:40 Urine Creatinine 32.9 mg/dl (Not Estab.) 02/14/17 21:55 Urine Microalbumin 332.1 ug/mL (Not Estab.) 02/14/17 21:55 Microalb/Creat Ratio 1009.4 mg/g creat (0.0-30.0) H 02/14/17 21:55 Stool Leukocyte NO WBC SEEN 02/12/17 00:05 Hepatitis A IgM Ab Negative (Negative) 02/19/17 06:00 Hep Bs Antigen Negative (Negative) 02/19/17 06:00 Hep B Core IgM Ab Negative (Negative) 02/19/17 06:00 Hepatitis C Antibody 0.1 s/co ratio (0.0-0.9) 02/19/17 06:00 - Physical Exam Vitals and I&O: Vital Signs Temp 98.2 F 02/23/17 04:00 Pulse 85 02/23/17 04:00 Resp 18 02/23/17 04:00 BP 129/66 02/23/17 08:59 Pulse Ox 97 02/23/17 04:00 Intake & Output 02/22/17 02/23/17 02/23/17 18:59 06:59 18:59 Intake Total 200 350 50 Balance 200 350 50 Weight (lbs) 79.379 kg Intake: Intake, IV Amount 200 250 50 Piperacillin Sodium/ 100 50 50 Tazobact 2.25 gm In Sodium Chloride 0.9% 50 ml @ 100 mls/hr IV Q6HR PATRICIA Rx#:[id number] metroNIDAZOLE 500mg/NS 100 200 100mL 500 mg In 100 ml @ 100 mls/hr IV Q8HR PATRICIA Rx #:[id number] Oral 100 Other: # Voids 2 # Bowel Movements 0 Stool Characteristics Liquid Liquid Active Medications: Current Medications Acetaminophen (Tylenol) 650 mg PO Q4HR PRN PRN Reason: TEMP >100 OR PAIN Stop: 04/11/17 15:21 Acetaminophen/Codeine Phosphate (Tylenol W/Codeine #3) 1 tab PO Q6HR PRN PRN Reason: MODERATE PAIN Stop: 04/11/17 15:21 Last Admin: 02/18/17 05:19 Dose: 1 tab Acetaminophen/Hydrocodone Bitart ([place] 5mg/325mg) 2 tab PO Q4H PRN PRN Reason: Severe Pain Stop: 04/11/17 15:21 Last Admin: 02/18/17 08:48 Dose: 2 tab Albuterol Sulfate (Albuterol 2.5mg/3ml Neb Ud) 2.5 mg HHN Q4HRT PRN PRN Reason: Wheezing Stop: 04/13/17 08:21 Last Admin: 02/17/17 19:36 Dose: 2.5 mg Ascorbic Acid (Vitamin C) 500 mg PO DAILY PATRICIA Stop: 04/12/17 08:59 Last Admin: 02/23/17 08:58 Dose: 500 mg Atorvastatin Calcium (Lipitor) 10 mg PO HS PATRICIA PRN Reason: Protocol Stop: 04/11/17 20:59 Last Admin: 02/22/17 20:49 Dose: 10 mg Furosemide (Lasix) 40 mg IVP BID PATRICIA Stop: 04/19/17 16:59 Last Admin: 02/23/17 08:59 Dose: 40 mg Heparin Sodium (Porcine) (Heparin) 5,000 units SUBQ Q12HR PATRICIA Stop: 04/22/17 20:59 Last Admin: 02/23/17 08:59 Dose: 5,000 units Sodium Chloride (Nacl 0.45%) 1,000 mls @ 0 mls/hr IV .Q0M PATRICIA PRN Reason: KVO Stop: 04/15/17 10:13 Last Admin: 02/14/17 11:04 Dose: 10 mls/hr Metronidazole (Flagyl) 500 mg in 100 mls @ 100 mls/hr IV Q8HR PATRICIA Stop: 04/19/17 21:59 Last Infusion: 02/23/17 05:15 Dose: Infused Piperacillin Sod/Tazobactam (Sod 2.25 gm/ Sodium Chloride) 50 mls @ 100 mls/hr IV Q6HR PATRICIA Stop: 04/21/17 17:59 Last Admin: 02/23/17 11:56 Dose: 100 mls/hr Methylprednisolone Sodium Succinate (Solu-Medrol) 20 mg IVP Q8HR [facility] Stop: 04/14/17 12:59 Last Admin: 02/23/17 04:16 Dose: 20 mg Miscellaneous (Probiotic Screen) 1 ea MC PRN PRN PRN Reason: PROTOCOL Stop: 04/12/17 09:13 Miscellaneous (Clinical Monitoring) 1 ea MC DAILY PRN PRN Reason: RENAL Stop: 04/19/17 12:28 Ondansetron HCl (Zofran) 4 mg IV Q8H PRN PRN Reason: Nausea / Vomiting Stop: 04/11/17 08:23 Last Admin: 02/16/17 09:10 Dose: 4 mg Pantoprazole Sodium (Protonix) 40 mg PO DAILY PATRICIA Stop: 04/12/17 08:59 Last Admin: 02/23/17 08:59 Dose: 40 mg Potassium Chloride (Klor-Con) 20 meq PO DAILY [facility] Stop: 04/17/17 08:59 Last Admin: 02/23/17 08:59 Dose: 20 meq General: Alert, Mild distress HEENT: Atraumatic, PERRLA, EOMI, Mucous membr. moist/pink Neck: Supple, +2 carotid pulse wo bruit Cardiovascular: Regular rate, Normal S1, Normal S2 Lungs: Other (few rhonchi) Abdomen: Bowel sounds, Soft Extremities: no Edema Neurological: Sensation intact Skin: no Rash Psych/Mental Status: Mood NL - Procedures Procedures: Procedures Procedure Code Date INSERT TUNNELED CV CATH [id number] 02/09/17 INSERTION OF INFUSION DEV INTO L SUBCLAV VEIN, PERC APPROACH 22F401A 02/09/17 Assessment/Plan - Problem List Patient Problems: All Active Problems NAUSEA AND VOMITING WITH DEHYDRATION (Acute) sepsis (Acute) Sepsis affecting skin (Acute) L02.91 - Assessment Assessment: * Reactive leukocytosis improving on antibiotics * 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 DVT proph Nutritional Asmnt/Malnutr-PDOC - Dietary Evaluation Malnutrition Findings (Please click <Entered> for more info): Nutritional Asmnt/Malnutrition Start: 02/14/17 13: 04 Text: Status: Complete Freq: Document 02/14/17 13:05 GSUN (Rec: 02/14/17 13:21 GSUN [id number]) Nutritional Asmnt/Malnutrition Patient General Information Nutritional Screening Moderate Risk Screening Pertinent Medical Hx/Surgical Hx Dx: Septic shock, hypotension, dehydration, metabolic acidosis improved, SU ?ATN, suspect aspiration PNA HTN, left knee prothesis, dyslipidemia, anemia Subjective Information 66 year old female, Bengali speaking. Pt was receiving breathing [facility]. Observed clear liquid tray at bedside. MD progress note 02/13: DC NG tube and start PO as tolerated. Spoke to RN STEFANIE Mayorga stated for breakfast pt tolerated 2 juices, declined broth, RN will remove mask and encourage lunch shortly. No significant wasting noted. 02/11 KUB: mild ielus. Current Diet Order/ Nutrition Support Clear liquid Pertinent Medications Vitamin C, Lipitor, Culturelle , Solu-Medrol, Zofran, Protonix, Nacl 0.45% Pertinent Labs 02/13: potassium 3L 02/14: BUN 30H, creatinine 1.8H (declining) Nutritional Hx/Data Height 1.68 m Height (Calculated Centimeters) 167.6 Current Weight (lbs) 75.75 kg Weight (Calculated Kilograms) 75.7 Weight (Calculated Grams) 39392.9 [place] Body Weight 130 Weight Status Overweight GI Symptoms Skin Integrity/Comment: Josias 14. Non-pitting edema bilateral feet. 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 Estimated Nutritional Goals Calories/Kcals/Kg IBW 130lb/59.1kg Kcals Calculated 1478-1773kcal (25-30kcal/kg) Protein Calculated 59g (1g/kg) Fluid: ml 1478-1773ml (1ml/kcal) Nutritional Problem 1. Problem Problem Impaired nutrient utilization related to Etiology renal dysfunction, per MD note SU ?ATN Signs/Symptoms: BUN 30H, creatinine 1.8H Intervention/Recommendation Comments 1. Recommend advance diet as tolerated to low sodium diet, to aid in renal function. No renal restriction due to hx of hypokalemia. Expected Outcomes/Goals Expected Outcomes/Goals 1. Pt to resume diet and meet at least 75% fo estimated nutritional needs.
--- NOTE | 2017-02-23 12:55 | General Progress Note ---
Subjective - Review of Systems Service Date: 02/23/17 Subjective: More awake, verbal, mild tachypnea, poor appetite Objective - Results Result Diagrams: 02/23/17 05:40 02/23/17 05:40 Recent Labs: Laboratory Last Values WBC 17.4 Th/cmm (4.8-10.8) H D 02/23/17 05:40 Corrected WBC (auto) 52.5 Th/cmm (4.8-10.8) H* 02/19/17 09:00 RBC 3.72 Mil/cmm (3.80-5.20) L 02/23/17 05:40 Hgb 10.7 gm/dL (11.7-16.1) L 02/23/17 05:40 Hct 31.2 % (35.0-45.0) L 02/23/17 05:40 MCV 83.8 fl (81-100) 02/23/17 05:40 MCH 28.7 pg (27.0-31.0) 02/23/17 05:40 MCHC Differential 34.2 pg (28.0-36.0) 02/23/17 05:40 RDW 19.1 % (11.5-20.0) 02/23/17 05:40 Plt Count 256 Th/cmm (150-400) 02/23/17 05:40 MPV 8.8 fl 02/23/17 05:40 Neutrophils % 84.8 % (40.0-80.0) H 02/16/17 05:00 Band Neutrophils % 10 % (0-10) 02/23/17 05:40 Lymphocytes % 10.0 % (20.0-50.0) L 02/16/17 05:00 Monocytes % 2.7 % (2.0-10.0) 02/16/17 05:00 Eosinophils % 0.1 % (0.0-5.0) 02/16/17 05:00 Basophils % 2.4 % (0.0-2.0) H 02/16/17 05:00 Neutrophils (Manual) 77 % (40-80) 02/23/17 05:40 Lymphocytes 5 % (20-50) L 02/23/17 05:40 Monocytes 7 % (2-10) 02/23/17 05:40 Eosinophils 1 % (0-5) 02/15/17 05:00 Basophils 1 % (0-3) 02/09/17 20:27 Metamyelocytes 1 % (0-0) H 02/23/17 05:40 Nucleated RBCs 1.0 % (0-0) H 02/23/17 05:40 Platelet Estimate ADEQUATE (NORMAL) 02/23/17 05:40 Platelet Morphology NORMAL (NORMAL) 02/23/17 05:40 Anisocytosis 1+ 02/18/17 05:55 RBC Morph Micro Appear NORMAL (NORMAL) 02/23/17 05:40 Smear Path Review REVIEWED 02/22/17 06:15 Eos Smear Source URINE 02/14/17 17:40 Eos Smear Total Cells NONE SEEN (NONE SEEN) 02/14/17 17:40 PT 15.6 SECONDS (9.5-11.5) H 02/19/17 16:04 INR 1.47 (0.5-1.4) H 02/19/17 16:04 PTT (Actin FS) 29.9 SECONDS (26.0-38.0) 02/19/17 16:04 Specimen Source Arterial 02/14/17 16:00 Sample Site Right Radial 02/14/17 16:00 pH 7.40 (7.35-7.45) 02/14/17 16:00 pCO2 33.0 mmHg (35.0-45.0) L 02/14/17 16:00 pO2 103.0 mmHg (80.0-100.0) H 02/14/17 16:00 HCO3 22.1 mEq/L (20.0-26.0) 02/14/17 16:00 Base Excess -3.6 mEq/L (-3.0-3.0) L 02/14/17 16:00 O2 Saturation 98.0 % (92.0-100.0) 02/14/17 16:00 Robin Test Positive 02/14/17 16:00 Vent Rate 12 02/14/17 16:00 Inspired O2 40 02/14/17 16:00 Tidal Volume NA 02/14/17 16:00 PEEP 6 02/14/17 16:00 Pressure (ins/psv/peep) 6 02/14/17 16:00 Critical Value LZHANG 02/14/17 16:00 Sodium 137 mEq/L (136-145) 02/23/17 05:40 Potassium 3.7 mEq/L (3.5-5.1) 02/23/17 05:40 Chloride 107 mEq/L (98-107) 02/23/17 05:40 Carbon Dioxide 20.2 mEq/L (21.0-31.0) L 02/23/17 05:40 Anion Gap 13.5 (7.0-16.0) 02/23/17 05:40 BUN 45 mg/dL (7-25) H 02/23/17 05:40 Creatinine 1.5 mg/dL (0.6-1.2) H 02/23/17 05:40 Est GFR ( Amer) 44.8 ml/min (>90) 02/23/17 05:40 Est GFR (Non-Af Amer) 37.0 ml/min 02/23/17 05:40 BUN/Creatinine Ratio 30.0 02/23/17 05:40 Glucose 114 mg/dL (70-105) H 02/23/17 05:40 POC Glucose 170 MG/DL (70 - 105) H 02/12/17 09:42 Hemoglobin A1c % 5.1 % (4.0-6.0) 02/11/17 08:11 Whole Bld Lactic Acid 1.29 mmol/L (0.60-1.99) 02/16/17 05:00 Uric Acid 11.2 mg/dL (2.3-6.6) H 02/15/17 05:00 Calcium 8.2 mg/dL (8.6-10.3) L 02/23/17 05:40 Phosphorus 3.8 mg/dL (2.5-5.0) 02/15/17 05:00 Magnesium 2.2 mg/dL (1.9-2.7) 02/19/17 05:40 Total Bilirubin 0.9 mg/dL (0.3-1.0) 02/23/17 05:40 AST 66 U/L (13-39) H 02/23/17 05:40 ALT 69 U/L (7-52) H 02/23/17 05:40 Alkaline Phosphatase 312 U/L (34-104) H 02/23/17 05:40 Creatine Kinase 67 U/L (30-223) 02/12/17 04:41 CK-MB (CK-2) 1.1 ng/mL (0.6-6.3) 02/09/17 20:27 Troponin I 0.01 ng/mL (0.01-0.05) 02/09/17 20:27 B-Natriuretic Peptide 725.0 pg/mL (5.0-100.0) H 02/23/17 05:40 Total Protein 5.6 gm/dL (6.0-8.3) L 02/23/17 05:40 Albumin 2.8 gm/dL (3.7-5.3) L 02/23/17 05:40 Globulin 2.8 gm/dL 02/23/17 05:40 Albumin/Globulin Ratio 1.0 (1.0-1.8) 02/23/17 05:40 Amylase 23 U/L (29-103) L 02/13/17 05:03 Lipase 13 U/L (11-82) 02/13/17 05:03 Urine Source ZEE [place] 02/14/17 17:40 Urine Color YELLOW 02/14/17 17:40 Urine Clarity SLIGHT HAZY (CLEAR) 02/14/17 17:40 Urine pH 5.5 02/14/17 17:40 Ur Specific [place] 1.020 (1.005-1.030) 02/14/17 17:40 Urine Protein 100 mg/dL (NEGATIVE) H 02/14/17 17:40 Urine Glucose (UA) NEGATIVE mg/dL (NEGATIVE) 02/14/17 17:40 Urine Ketones NEGATIVE mg/dL (NEGATIVE) 02/14/17 17:40 Urine Blood MODERATE (NEGATIVE) H 02/14/17 17:40 Urine Nitrate NEGATIVE (NEGATIVE) 02/14/17 17:40 Urine Bilirubin NEGATIVE (NEGATIVE) 02/14/17 17:40 Urine Urobilinogen 0.2 E.U./dL (0.2 - 1.0) 02/14/17 17:40 Ur Leukocyte Esterase NEGATIVE (NEGATIVE) 02/14/17 17:40 Urine RBC 2-5 /hpf (0-5) 02/14/17 17:40 Urine WBC 2-5 /hpf (0-5) 02/14/17 17:40 Ur Epithelial Cells FEW /lpf (FEW) 02/14/17 17:40 Amorphous Sediment MANY URATES (NONE SEEN) 02/14/17 17:40 Urine Bacteria MODERATE /hpf (NONE SEEN) 02/14/17 17:40 Hyaline Casts 0-2 /lpf (0-2) H 02/09/17 21:05 Urine Yeast FEW /hpf (NONE SEEN) H 02/14/17 17:40 Ur Random Sodium 37 mmol/L 02/14/17 17:40 Urine Creatinine 32.9 mg/dl (Not Estab.) 02/14/17 21:55 Urine Microalbumin 332.1 ug/mL (Not Estab.) 02/14/17 21:55 Microalb/Creat Ratio 1009.4 mg/g creat (0.0-30.0) H 02/14/17 21:55 Stool Leukocyte NO WBC SEEN 02/12/17 00:05 Hepatitis A IgM Ab Negative (Negative) 02/19/17 06:00 Hep Bs Antigen Negative (Negative) 02/19/17 06:00 Hep B Core IgM Ab Negative (Negative) 02/19/17 06:00 Hepatitis C Antibody 0.1 s/co ratio (0.0-0.9) 02/19/17 06:00 - Physical Exam Vitals and I&O: Vital Signs Temp 98.2 F 02/23/17 04:00 Pulse 85 02/23/17 04:00 Resp 18 02/23/17 04:00 BP 129/66 02/23/17 08:59 Pulse Ox 97 02/23/17 04:00 Intake & Output 02/22/17 02/23/17 02/23/17 18:59 06:59 18:59 Intake Total 200 350 50 Balance 200 350 50 Weight (lbs) 79.379 kg Intake: Intake, IV Amount 200 250 50 Piperacillin Sodium/ 100 50 50 Tazobact 2.25 gm In Sodium Chloride 0.9% 50 ml @ 100 mls/hr IV Q6HR PATRICIA Rx#:[id number] metroNIDAZOLE 500mg/NS 100 200 100mL 500 mg In 100 ml @ 100 mls/hr IV Q8HR PATRICIA Rx #:[id number] Oral 100 Other: # Voids 2 # Bowel Movements 0 Stool Characteristics Liquid Liquid Liquid Active Medications: Current Medications Acetaminophen (Tylenol) 650 mg PO Q4HR PRN PRN Reason: TEMP >100 OR PAIN Stop: 04/11/17 15:21 Acetaminophen/Codeine Phosphate (Tylenol W/Codeine #3) 1 tab PO Q6HR PRN PRN Reason: MODERATE PAIN Stop: 04/11/17 15:21 Last Admin: 02/18/17 05:19 Dose: 1 tab Acetaminophen/Hydrocodone Bitart ([place] 5mg/325mg) 2 tab PO Q4H PRN PRN Reason: Severe Pain Stop: 04/11/17 15:21 Last Admin: 02/18/17 08:48 Dose: 2 tab Albuterol Sulfate (Albuterol 2.5mg/3ml Neb Ud) 2.5 mg HHN Q4HRT PRN PRN Reason: Wheezing Stop: 04/13/17 08:21 Last Admin: 02/17/17 19:36 Dose: 2.5 mg Ascorbic Acid (Vitamin C) 500 mg PO DAILY PATRICIA Stop: 04/12/17 08:59 Last Admin: 02/23/17 08:58 Dose: 500 mg Atorvastatin Calcium (Lipitor) 10 mg PO HS PATRICIA PRN Reason: Protocol Stop: 04/11/17 20:59 Last Admin: 02/22/17 20:49 Dose: 10 mg Furosemide (Lasix) 40 mg IVP BID PATRICIA Stop: 04/19/17 16:59 Last Admin: 02/23/17 08:59 Dose: 40 mg Heparin Sodium (Porcine) (Heparin) 5,000 units SUBQ Q12HR PATRICIA Stop: 04/22/17 20:59 Last Admin: 02/23/17 08:59 Dose: 5,000 units Sodium Chloride (Nacl 0.45%) 1,000 mls @ 0 mls/hr IV .Q0M PATRICIA PRN Reason: KVO Stop: 04/15/17 10:13 Last Admin: 02/14/17 11:04 Dose: 10 mls/hr Metronidazole (Flagyl) 500 mg in 100 mls @ 100 mls/hr IV Q8HR PATRICIA Stop: 04/19/17 21:59 Last Infusion: 02/23/17 05:15 Dose: Infused Piperacillin Sod/Tazobactam (Sod 2.25 gm/ Sodium Chloride) 50 mls @ 100 mls/hr IV Q6HR PATRICIA Stop: 04/21/17 17:59 Last Admin: 02/23/17 11:56 Dose: 100 mls/hr Methylprednisolone Sodium Succinate (Solu-Medrol) 20 mg IVP Q8HR PATRICIA Stop: 04/14/17 12:59 Last Admin: 02/23/17 04:16 Dose: 20 mg Miscellaneous (Probiotic Screen) 1 ea MC PRN PRN PRN Reason: PROTOCOL Stop: 04/12/17 09:13 Miscellaneous (Clinical Monitoring) 1 ea MC DAILY PRN PRN Reason: RENAL Stop: 04/19/17 12:28 Ondansetron HCl (Zofran) 4 mg IV Q8H PRN PRN Reason: Nausea / Vomiting Stop: 04/11/17 08:23 Last Admin: 02/16/17 09:10 Dose: 4 mg Pantoprazole Sodium (Protonix) 40 mg PO DAILY PATRICIA Stop: 04/12/17 08:59 Last Admin: 02/23/17 08:59 Dose: 40 mg Potassium Chloride (Klor-Con) 20 meq PO DAILY [facility] Stop: 04/17/17 08:59 Last Admin: 02/23/17 08:59 Dose: 20 meq General: Alert, Mild distress HEENT: Atraumatic, PERRLA, EOMI, Mucous membr. moist/pink Neck: Supple, +2 carotid pulse wo bruit Cardiovascular: Regular rate, Normal S1, Normal S2 Lungs: Other (few rhonchi) Abdomen: Bowel sounds, Soft Extremities: no Edema Neurological: Sensation intact Skin: no Rash Psych/Mental Status: Mood NL - Procedures Procedures: Procedures Procedure Code Date INSERT TUNNELED CV CATH [id number] 02/09/17 INSERTION OF INFUSION DEV INTO L SUBCLAV VEIN, PERC APPROACH [id number] 02/09/17 Assessment/Plan - Problem List Patient Problems: All Active Problems NAUSEA AND VOMITING WITH DEHYDRATION (Acute) sepsis (Acute) Sepsis affecting skin (Acute) L02.91 - Assessment Assessment: Acute kidney injury secondary to acute tubular injury Fractional excretion of sodium is 1.1% suggestive of intrinsic renal failure Shock secondary to sepsis Distended gallbladder with normal acute cholecystitis Abdominal pain secondary to ileus Ileus secondary to sepsis Acute decompensation of systolic congestive heart failure(EJF 15-20%) Respiratory failure secondary to aspiration pneumonia/CHF Anemia of chronic kidney disease Dyslipidemia Status post Infected prosthesis left knee, status post I&D Purely anion gap metabolic acidosis with respiratory alkalosis Sepsis secondary to aspiration pneumonia Worsening liver enzymes due to sepsis, medications, hypotension Acalculous Cholecystitis - Plan Plan: Lab - Result Diagrams 02/15/17 05:00 02/15/17 05:00 Current Medications Acetaminophen (Tylenol) 650 mg PO Q4HR PRN PRN Reason: TEMP >100 OR PAIN Stop: 04/11/17 15:21 Acetaminophen/Codeine Phosphate (Tylenol W/Codeine #3) 1 tab PO Q6HR PRN PRN Reason: MODERATE PAIN Stop: 04/11/17 15:21 Last Admin: 02/14/17 02:08 Dose: 1 tab Acetaminophen/Hydrocodone Bitart ([place] 5mg/325mg) 2 tab PO Q4H PRN PRN Reason: Severe Pain Stop: 04/11/17 15:21 Last Admin: 02/15/17 00:06 Dose: 2 tab Albuterol Sulfate (Albuterol 2.5mg/3ml Neb Ud) 2.5 mg HHN Q4HRT PRN PRN Reason: Wheezing Stop: 04/13/17 08:21 Last Admin: 02/14/17 15:54 Dose: 2.5 mg Ascorbic Acid (Vitamin C) 500 mg PO DAILY PATRICIA Stop: 04/12/17 08:59 Last Admin: 02/15/17 09:33 Dose: 500 mg Atorvastatin Calcium (Lipitor) 10 mg PO HS PATRICIA PRN Reason: Protocol Stop: 04/11/17 20:59 Last Admin: 02/14/17 20:49 Dose: 10 mg Furosemide (Lasix) 40 mg IVP BID PATRICIA Stop: 04/14/17 08:59 Last Admin: 02/15/17 09:33 Dose: 40 mg Piperacillin Sod/Tazobactam (Sod 4.5 gm/ Sodium Chloride) 100 mls @ 100 mls/hr IV Q8HR PATRICIA Stop: 04/11/17 13:59 Last Admin: 02/15/17 05:23 Dose: 100 mls/hr Norepinephrine Bitartrate 8 mg (/ Dextrose) 258 mls @ 77.4 mls/hr IV TITR PRN; Protocol; 40 MCG/MIN PRN Reason: BP MAINTENANCE (PER PROTOCOL) Stop: 04/12/17 07:46 Last Admin: 02/15/17 01:45 Dose: 5.16 mcg/min, 9.98 mls/hr Diltiazem HCl 125 mg/ Dextrose 125 mls @ 10 mls/hr IV TITR PATRICIA; 10 MG/HR PRN Reason: Protocol Stop: 04/15/17 04:29 Last Titration: 02/15/17 10:18 Dose: Infused Sodium Chloride (Nacl 0.45%) 1,000 mls @ 0 mls/hr IV .Q0M PATRICIA PRN Reason: KVO Stop: 04/15/17 10:13 Last Admin: 02/14/17 11:04 Dose: 10 mls/hr Lactobacillus Rhamnosus (Culturelle) 1 each PO DAILY PATRICIA Stop: 04/13/17 08:59 Last Admin: 02/15/17 09:33 Dose: 1 each Methylprednisolone Sodium Succinate (Solu-Medrol) 20 mg IVP Q8HR PATRICIA Stop: 04/14/17 12:59 Last Admin: 02/15/17 05:23 Dose: 20 mg Miscellaneous (Probiotic Screen) 1 ea MC PRN PRN PRN Reason: PROTOCOL Stop: 04/12/17 09:13 Ondansetron HCl (Zofran) 4 mg IV Q8H PRN PRN Reason: Nausea / Vomiting Stop: 04/11/17 08:23 Last Admin: 02/12/17 00:59 Dose: 4 mg Pantoprazole Sodium (Protonix) 40 mg PO DAILY PATRICIA Stop: 04/12/17 08:59 Last Admin: 02/15/17 09:32 Dose: 40 mg Kidney function better with a BUN/creatinine of 45/1.5 Chest x-ray basically the same with bilateral effusions, pulmonary congestion, left density Continue diuretics for now due to CHF, BNP down to 725 Off Levophed Monitor electrolytes and CBC along with chest x-ray Replace potassium and magnesium White count continues to improve @ 17.4 Liver enzymes slightly improved Echo revealed ejection fraction 15-20% with RVSP of 24.5, consider AICD, Bivent pacer Kidney fnc & BNP improving, hold HD for now Nutritional Asmnt/Malnutr-PDOC - Dietary Evaluation Malnutrition Findings (Please click <Entered> for more info): Nutritional Asmnt/Malnutrition Start: 02/14/17 13: 04 Text: Status: Complete Freq: Document 02/14/17 13:05 GSUN (Rec: 02/14/17 13:21 GSUN [id number]) Nutritional Asmnt/Malnutrition Patient General Information Nutritional Screening Moderate Risk Screening Pertinent Medical Hx/Surgical Hx Dx: Septic shock, hypotension, dehydration, metabolic acidosis improved, SU ?ATN, suspect aspiration PNA HTN, left knee prothesis, dyslipidemia, anemia Subjective Information 66 year old female, Wolof speaking. Pt was receiving breathing treatment [facility]. Observed clear liquid tray at bedside. MD progress note 02/13: DC NG tube and start PO as tolerated. Spoke to RN STEFANIE Mayorga stated for breakfast pt tolerated 2 juices, declined broth, RN will remove mask and encourage lunch shortly. No significant wasting noted. 02/11 KUB: mild ielus. Current Diet Order/ Nutrition Support Clear liquid Pertinent Medications Vitamin C, Lipitor, Culturelle , Solu-Medrol, Zofran, Protonix, Nacl 0.45% Pertinent Labs 02/13: potassium 3L 02/14: BUN 30H, creatinine 1.8H (declining) Nutritional Hx/Data Height 1.68 m Height (Calculated Centimeters) 167.6 Current Weight (lbs) 75.75 kg Weight (Calculated Kilograms) 75.7 Weight (Calculated Grams) 87869.9 [place] Body Weight 130 Weight Status Overweight GI Symptoms Skin Integrity/Comment: Josias 14. Non-pitting edema bilateral feet. 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 Estimated Nutritional Goals Calories/Kcals/Kg IBW 130lb/59.1kg Kcals Calculated 1478-1773kcal (25-30kcal/kg) Protein Calculated 59g (1g/kg) Fluid: ml 1478-1773ml (1ml/kcal) Nutritional Problem 1. Problem Problem Impaired nutrient utilization related to Etiology renal dysfunction, per MD note SU ?ATN Signs/Symptoms: BUN 30H, creatinine 1.8H Intervention/Recommendation Comments 1. Recommend advance diet as tolerated to low sodium diet, to aid in renal function. No renal restriction due to hx of hypokalemia. Expected Outcomes/Goals Expected Outcomes/Goals 1. Pt to resume diet and meet at least 75% fo estimated nutritional needs.
--- NOTE | 2017-02-23 16:10 | Internal Medicine Prog Note ---
Internal Medicine Subjective - Subjective Patient is:: awake, arousable Patient Complaints of:: congestion, sore throat Per staff patient has:: no episodes of fall Internal Medicine Objective - Results Result Diagrams: 02/23/17 05:40 02/23/17 05:40 Recent Labs: Laboratory Last Values WBC 17.4 Th/cmm (4.8-10.8) H D 02/23/17 05:40 Corrected WBC (auto) 52.5 Th/cmm (4.8-10.8) H* 02/19/17 09:00 RBC 3.72 Mil/cmm (3.80-5.20) L 02/23/17 05:40 Hgb 10.7 gm/dL (11.7-16.1) L 02/23/17 05:40 Hct 31.2 % (35.0-45.0) L 02/23/17 05:40 MCV 83.8 fl (81-100) 02/23/17 05:40 MCH 28.7 pg (27.0-31.0) 02/23/17 05:40 MCHC Differential 34.2 pg (28.0-36.0) 02/23/17 05:40 RDW 19.1 % (11.5-20.0) 02/23/17 05:40 Plt Count 256 Th/cmm (150-400) 02/23/17 05:40 MPV 8.8 fl 02/23/17 05:40 Neutrophils % 84.8 % (40.0-80.0) H 02/16/17 05:00 Band Neutrophils % 10 % (0-10) 02/23/17 05:40 Lymphocytes % 10.0 % (20.0-50.0) L 02/16/17 05:00 Monocytes % 2.7 % (2.0-10.0) 02/16/17 05:00 Eosinophils % 0.1 % (0.0-5.0) 02/16/17 05:00 Basophils % 2.4 % (0.0-2.0) H 02/16/17 05:00 Neutrophils (Manual) 77 % (40-80) 02/23/17 05:40 Lymphocytes 5 % (20-50) L 02/23/17 05:40 Monocytes 7 % (2-10) 02/23/17 05:40 Eosinophils 1 % (0-5) 02/15/17 05:00 Basophils 1 % (0-3) 02/09/17 20:27 Metamyelocytes 1 % (0-0) H 02/23/17 05:40 Nucleated RBCs 1.0 % (0-0) H 02/23/17 05:40 Platelet Estimate ADEQUATE (NORMAL) 02/23/17 05:40 Platelet Morphology NORMAL (NORMAL) 02/23/17 05:40 Anisocytosis 1+ 02/18/17 05:55 RBC Morph Micro Appear NORMAL (NORMAL) 02/23/17 05:40 Smear Path Review REVIEWED 02/22/17 06:15 Eos Smear Source URINE 02/14/17 17:40 Eos Smear Total Cells NONE SEEN (NONE SEEN) 02/14/17 17:40 PT 15.6 SECONDS (9.5-11.5) H 02/19/17 16:04 INR 1.47 (0.5-1.4) H 02/19/17 16:04 PTT (Actin FS) 29.9 SECONDS (26.0-38.0) 02/19/17 16:04 Specimen Source Arterial 02/14/17 16:00 Sample Site Right Radial 02/14/17 16:00 pH 7.40 (7.35-7.45) 02/14/17 16:00 pCO2 33.0 mmHg (35.0-45.0) L 02/14/17 16:00 pO2 103.0 mmHg (80.0-100.0) H 02/14/17 16:00 HCO3 22.1 mEq/L (20.0-26.0) 02/14/17 16:00 Base Excess -3.6 mEq/L (-3.0-3.0) L 02/14/17 16:00 O2 Saturation 98.0 % (92.0-100.0) 02/14/17 16:00 Robin Test Positive 02/14/17 16:00 Vent Rate 12 02/14/17 16:00 Inspired O2 40 02/14/17 16:00 Tidal Volume NA 02/14/17 16:00 PEEP 6 02/14/17 16:00 Pressure (ins/psv/peep) 6 02/14/17 16:00 Critical Value LZHANG 02/14/17 16:00 Sodium 137 mEq/L (136-145) 02/23/17 05:40 Potassium 3.7 mEq/L (3.5-5.1) 02/23/17 05:40 Chloride 107 mEq/L (98-107) 02/23/17 05:40 Carbon Dioxide 20.2 mEq/L (21.0-31.0) L 02/23/17 05:40 Anion Gap 13.5 (7.0-16.0) 02/23/17 05:40 BUN 45 mg/dL (7-25) H 02/23/17 05:40 Creatinine 1.5 mg/dL (0.6-1.2) H 02/23/17 05:40 Est GFR ( Amer) 44.8 ml/min (>90) 02/23/17 05:40 Est GFR (Non-Af Amer) 37.0 ml/min 02/23/17 05:40 BUN/Creatinine Ratio 30.0 02/23/17 05:40 Glucose 114 mg/dL (70-105) H 02/23/17 05:40 POC Glucose 170 MG/DL (70 - 105) H 02/12/17 09:42 Hemoglobin A1c % 5.1 % (4.0-6.0) 02/11/17 08:11 Whole Bld Lactic Acid 1.29 mmol/L (0.60-1.99) 02/16/17 05:00 Uric Acid 11.2 mg/dL (2.3-6.6) H 02/15/17 05:00 Calcium 8.2 mg/dL (8.6-10.3) L 02/23/17 05:40 Phosphorus 3.8 mg/dL (2.5-5.0) 02/15/17 05:00 Magnesium 2.2 mg/dL (1.9-2.7) 02/19/17 05:40 Total Bilirubin 0.9 mg/dL (0.3-1.0) 02/23/17 05:40 AST 66 U/L (13-39) H 02/23/17 05:40 ALT 69 U/L (7-52) H 02/23/17 05:40 Alkaline Phosphatase 312 U/L (34-104) H 02/23/17 05:40 Creatine Kinase 67 U/L (30-223) 02/12/17 04:41 CK-MB (CK-2) 1.1 ng/mL (0.6-6.3) 02/09/17 20:27 Troponin I 0.01 ng/mL (0.01-0.05) 02/09/17 20:27 B-Natriuretic Peptide 725.0 pg/mL (5.0-100.0) H 02/23/17 05:40 Total Protein 5.6 gm/dL (6.0-8.3) L 02/23/17 05:40 Albumin 2.8 gm/dL (3.7-5.3) L 02/23/17 05:40 Globulin 2.8 gm/dL 02/23/17 05:40 Albumin/Globulin Ratio 1.0 (1.0-1.8) 02/23/17 05:40 Amylase 23 U/L (29-103) L 02/13/17 05:03 Lipase 13 U/L (11-82) 02/13/17 05:03 Urine Source ZEE PORT 02/14/17 17:40 Urine Color YELLOW 02/14/17 17:40 Urine Clarity SLIGHT HAZY (CLEAR) 02/14/17 17:40 Urine pH 5.5 02/14/17 17:40 Ur Specific [place] 1.020 (1.005-1.030) 02/14/17 17:40 Urine Protein 100 mg/dL (NEGATIVE) H 02/14/17 17:40 Urine Glucose (UA) NEGATIVE mg/dL (NEGATIVE) 02/14/17 17:40 Urine Ketones NEGATIVE mg/dL (NEGATIVE) 02/14/17 17:40 Urine Blood MODERATE (NEGATIVE) H 02/14/17 17:40 Urine Nitrate NEGATIVE (NEGATIVE) 02/14/17 17:40 Urine Bilirubin NEGATIVE (NEGATIVE) 02/14/17 17:40 Urine Urobilinogen 0.2 E.U./dL (0.2 - 1.0) 02/14/17 17:40 Ur Leukocyte Esterase NEGATIVE (NEGATIVE) 02/14/17 17:40 Urine RBC 2-5 /hpf (0-5) 02/14/17 17:40 Urine WBC 2-5 /hpf (0-5) 02/14/17 17:40 Ur Epithelial Cells FEW /lpf (FEW) 02/14/17 17:40 Amorphous Sediment MANY URATES (NONE SEEN) 02/14/17 17:40 Urine Bacteria MODERATE /hpf (NONE SEEN) 02/14/17 17:40 Hyaline Casts 0-2 /lpf (0-2) H 02/09/17 21:05 Urine Yeast FEW /hpf (NONE SEEN) H 02/14/17 17:40 Ur Random Sodium 37 mmol/L 02/14/17 17:40 Urine Creatinine 32.9 mg/dl (Not Estab.) 02/14/17 21:55 Urine Microalbumin 332.1 ug/mL (Not Estab.) 02/14/17 21:55 Microalb/Creat Ratio 1009.4 mg/g creat (0.0-30.0) H 02/14/17 21:55 Stool Leukocyte NO WBC SEEN 02/12/17 00:05 Hepatitis A IgM Ab Negative (Negative) 02/19/17 06:00 Hep Bs Antigen Negative (Negative) 02/19/17 06:00 Hep B Core IgM Ab Negative (Negative) 02/19/17 06:00 Hepatitis C Antibody 0.1 s/co ratio (0.0-0.9) 02/19/17 06:00 - Physical Exam Vitals and I&O: Vital Signs Temp 98.2 F 02/23/17 04:00 Pulse 85 02/23/17 04:00 Resp 18 02/23/17 04:00 BP 129/66 02/23/17 08:59 Pulse Ox 97 02/23/17 04:00 Intake & Output 02/22/17 02/23/17 02/23/17 18:59 06:59 18:59 Intake Total 200 350 50 Balance 200 350 50 Weight (lbs) 79.379 kg Intake: Intake, IV Amount 200 250 50 Piperacillin Sodium/ 100 50 50 Tazobact 2.25 gm In Sodium Chloride 0.9% 50 ml @ 100 mls/hr IV Q6HR PATRICIA Rx#:[id number] metroNIDAZOLE 500mg/NS 100 200 100mL 500 mg In 100 ml @ 100 mls/hr IV Q8HR PATRICIA Rx #:[id number] Oral 100 Other: # Voids 2 # Bowel Movements 0 Stool Characteristics Liquid Liquid Liquid Active Medications: Current Medications Acetaminophen (Tylenol) 650 mg PO Q4HR PRN PRN Reason: TEMP >100 OR PAIN Stop: 04/11/17 15:21 Acetaminophen/Codeine Phosphate (Tylenol W/Codeine #3) 1 tab PO Q6HR PRN PRN Reason: MODERATE PAIN Stop: 04/11/17 15:21 Last Admin: 02/18/17 05:19 Dose: 1 tab Acetaminophen/Hydrocodone Bitart ([place] 5mg/325mg) 2 tab PO Q4H PRN PRN Reason: Severe Pain Stop: 04/11/17 15:21 Last Admin: 02/18/17 08:48 Dose: 2 tab Albuterol Sulfate (Albuterol 2.5mg/3ml Neb Ud) 2.5 mg HHN Q4HRT PRN PRN Reason: Wheezing Stop: 04/13/17 08:21 Last Admin: 02/17/17 19:36 Dose: 2.5 mg Ascorbic Acid (Vitamin C) 500 mg PO DAILY PATRICIA Stop: 04/12/17 08:59 Last Admin: 02/23/17 08:58 Dose: 500 mg Atorvastatin Calcium (Lipitor) 10 mg PO HS PATRICIA PRN Reason: Protocol Stop: 04/11/17 20:59 Last Admin: 02/22/17 20:49 Dose: 10 mg Furosemide (Lasix) 40 mg IVP BID PATRICIA Stop: 04/19/17 16:59 Last Admin: 02/23/17 08:59 Dose: 40 mg Heparin Sodium (Porcine) (Heparin) 5,000 units SUBQ Q12HR PATRICIA Stop: 04/22/17 20:59 Last Admin: 02/23/17 08:59 Dose: 5,000 units Sodium Chloride (Nacl 0.45%) 1,000 mls @ 0 mls/hr IV .Q0M PATRICIA PRN Reason: KVO Stop: 04/15/17 10:13 Last Admin: 02/14/17 11:04 Dose: 10 mls/hr Metronidazole (Flagyl) 500 mg in 100 mls @ 100 mls/hr IV Q8HR PATRICIA Stop: 04/19/17 21:59 Last Admin: 02/23/17 12:56 Dose: 100 mls/hr Piperacillin Sod/Tazobactam (Sod 2.25 gm/ Sodium Chloride) 50 mls @ 100 mls/hr IV Q6HR PATRICIA Stop: 04/21/17 17:59 Last Admin: 02/23/17 11:56 Dose: 100 mls/hr Megestrol Acetate (Megace) 40 mg PO DAILY PATRICIA PRN Reason: Protocol Stop: 04/24/17 12:59 Last Admin: 02/23/17 14:51 Dose: 40 mg Methylprednisolone Sodium Succinate (Solu-Medrol) 20 mg IVP Q8HR PATRICIA Stop: 04/14/17 12:59 Last Admin: 02/23/17 12:56 Dose: 20 mg Miscellaneous (Probiotic Screen) 1 ea MC PRN PRN PRN Reason: PROTOCOL Stop: 04/12/17 09:13 Miscellaneous (Clinical Monitoring) 1 ea MC DAILY PRN PRN Reason: RENAL Stop: 04/19/17 12:28 Ondansetron HCl (Zofran) 4 mg IV Q8H PRN PRN Reason: Nausea / Vomiting Stop: 04/11/17 08:23 Last Admin: 02/16/17 09:10 Dose: 4 mg Pantoprazole Sodium (Protonix) 40 mg PO DAILY PATRICIA Stop: 04/12/17 08:59 Last Admin: 02/23/17 08:59 Dose: 40 mg Potassium Chloride (Klor-Con) 20 meq PO DAILY PATRICIA Stop: 04/17/17 08:59 Last Admin: 02/23/17 08:59 Dose: 20 meq General: weak, congested HEENT: PERRLA Neck: Supple Extremities: clear Neurological: no change - Procedures Procedures: Procedures Procedure Code Date INSERT TUNNELED CV CATH [id number] 02/09/17 INSERTION OF INFUSION DEV INTO L SUBCLAV VEIN, PERC APPROACH 10E047O 02/09/17 Internal Medicine Assmt/Plan - Assessment Assessment: Current Active Problems Problem Status Onset NAUSEA AND VOMITING WITH DEHYDRATION Acute leukocytosis distended gall bladder chf s/p arf s/p dialysis trachycardia - Plan Plan: as per nephro Nutritional Asmnt/Malnutr-PDOC - Dietary Evaluation Malnutrition Findings (Please click <Entered> for more info): Nutritional Asmnt/Malnutrition Start: 02/14/17 13: 04 Text: Status: Complete Freq: Document 02/14/17 13:05 GSUN (Rec: 02/14/17 13:21 GSCB [id number]) Nutritional Asmnt/Malnutrition Patient General Information Nutritional Screening Moderate Risk Screening Pertinent Medical Hx/Surgical Hx Dx: Septic shock, hypotension, dehydration, metabolic acidosis improved, SU ?ATN, suspect aspiration PNA HTN, left knee prothesis, dyslipidemia, anemia Subjective Information 66 year old female, Romansh speaking. Pt was receiving breathing treatment during [facility]. Observed clear liquid tray at bedside. MD progress note 02/13: DC NG tube and start PO as tolerated. Spoke to RN STEFANIE Mayorga stated for breakfast pt tolerated 2 juices, declined broth, RN will remove mask and encourage lunch shortly. No significant wasting noted. 02/11 KUB: mild ielus. Current Diet Order/ Nutrition Support Clear liquid Pertinent Medications Vitamin C, Lipitor, Culturelle , Solu-Medrol, Zofran, Protonix, Nacl 0.45% Pertinent Labs 02/13: potassium 3L 02/14: BUN 30H, creatinine 1.8H (declining) Nutritional Hx/Data Height 1.68 m Height (Calculated Centimeters) 167.6 Current Weight (lbs) 75.75 kg Weight (Calculated Kilograms) 75.7 Weight (Calculated Grams) 63593.9 Solomon Body Weight 130 Weight Status Overweight GI Symptoms Skin Integrity/Comment: Josias 14. Non-pitting edema bilateral feet. 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 Estimated Nutritional Goals Calories/Kcals/Kg IBW 130lb/59.1kg Kcals Calculated 1478-1773kcal (25-30kcal/kg) Protein Calculated 59g (1g/kg) Fluid: ml 1478-1773ml (1ml/kcal) Nutritional Problem 1. Problem Problem Impaired nutrient utilization related to Etiology renal dysfunction, per MD note SU ?ATN Signs/Symptoms: BUN 30H, creatinine 1.8H Intervention/Recommendation Comments 1. Recommend advance diet as tolerated to low sodium diet, to aid in renal function. No renal restriction due to hx of hypokalemia. Expected Outcomes/Goals Expected Outcomes/Goals 1. Pt to resume diet and meet at least 75% fo estimated nutritional needs.
[2017-02-23] MEDS: Atorvastatin Calcium 10 MG TAB PO SCH (21:08)
--- NOTE | 2017-02-23 23:43 | Infectious Disease Prog Note ---
Infectious Disease Subjective - Review of Systems Service Date: 02/23/17 Subjective: There is no new change, no fever. No more nausea and vomiting. No diarhea. Patient WBC count improved to 17k Infectious Disease Objective - Results Result Diagrams: 02/23/17 05:40 02/23/17 05:40 Recent Labs: Laboratory Last Values WBC 17.4 Th/cmm (4.8-10.8) H D 02/23/17 05:40 Corrected WBC (auto) 52.5 Th/cmm (4.8-10.8) H* 02/19/17 09:00 RBC 3.72 Mil/cmm (3.80-5.20) L 02/23/17 05:40 Hgb 10.7 gm/dL (11.7-16.1) L 02/23/17 05:40 Hct 31.2 % (35.0-45.0) L 02/23/17 05:40 MCV 83.8 fl (81-100) 02/23/17 05:40 MCH 28.7 pg (27.0-31.0) 02/23/17 05:40 MCHC Differential 34.2 pg (28.0-36.0) 02/23/17 05:40 RDW 19.1 % (11.5-20.0) 02/23/17 05:40 Plt Count 256 Th/cmm (150-400) 02/23/17 05:40 MPV 8.8 fl 02/23/17 05:40 Neutrophils % 84.8 % (40.0-80.0) H 02/16/17 05:00 Band Neutrophils % 10 % (0-10) 02/23/17 05:40 Lymphocytes % 10.0 % (20.0-50.0) L 02/16/17 05:00 Monocytes % 2.7 % (2.0-10.0) 02/16/17 05:00 Eosinophils % 0.1 % (0.0-5.0) 02/16/17 05:00 Basophils % 2.4 % (0.0-2.0) H 02/16/17 05:00 Neutrophils (Manual) 77 % (40-80) 02/23/17 05:40 Lymphocytes 5 % (20-50) L 02/23/17 05:40 Monocytes 7 % (2-10) 02/23/17 05:40 Eosinophils 1 % (0-5) 02/15/17 05:00 Basophils 1 % (0-3) 02/09/17 20:27 Metamyelocytes 1 % (0-0) H 02/23/17 05:40 Nucleated RBCs 1.0 % (0-0) H 02/23/17 05:40 Platelet Estimate ADEQUATE (NORMAL) 02/23/17 05:40 Platelet Morphology NORMAL (NORMAL) 02/23/17 05:40 Anisocytosis 1+ 02/18/17 05:55 RBC Morph Micro Appear NORMAL (NORMAL) 02/23/17 05:40 Smear Path Review REVIEWED 02/22/17 06:15 Eos Smear Source URINE 02/14/17 17:40 Eos Smear Total Cells NONE SEEN (NONE SEEN) 02/14/17 17:40 PT 15.6 SECONDS (9.5-11.5) H 02/19/17 16:04 INR 1.47 (0.5-1.4) H 02/19/17 16:04 PTT (Actin FS) 29.9 SECONDS (26.0-38.0) 02/19/17 16:04 Specimen Source Arterial 02/14/17 16:00 Sample Site Right Radial 02/14/17 16:00 pH 7.40 (7.35-7.45) 02/14/17 16:00 pCO2 33.0 mmHg (35.0-45.0) L 02/14/17 16:00 pO2 103.0 mmHg (80.0-100.0) H 02/14/17 16:00 HCO3 22.1 mEq/L (20.0-26.0) 02/14/17 16:00 Base Excess -3.6 mEq/L (-3.0-3.0) L 02/14/17 16:00 O2 Saturation 98.0 % (92.0-100.0) 02/14/17 16:00 Robin Test Positive 02/14/17 16:00 Vent Rate 12 02/14/17 16:00 Inspired O2 40 02/14/17 16:00 Tidal Volume NA 02/14/17 16:00 PEEP 6 02/14/17 16:00 Pressure (ins/psv/peep) 6 02/14/17 16:00 Critical Value LZHANG 02/14/17 16:00 Sodium 137 mEq/L (136-145) 02/23/17 05:40 Potassium 3.7 mEq/L (3.5-5.1) 02/23/17 05:40 Chloride 107 mEq/L (98-107) 02/23/17 05:40 Carbon Dioxide 20.2 mEq/L (21.0-31.0) L 02/23/17 05:40 Anion Gap 13.5 (7.0-16.0) 02/23/17 05:40 BUN 45 mg/dL (7-25) H 02/23/17 05:40 Creatinine 1.5 mg/dL (0.6-1.2) H 02/23/17 05:40 Est GFR ( Amer) 44.8 ml/min (>90) 02/23/17 05:40 Est GFR (Non-Af Amer) 37.0 ml/min 02/23/17 05:40 BUN/Creatinine Ratio 30.0 02/23/17 05:40 Glucose 114 mg/dL (70-105) H 02/23/17 05:40 POC Glucose 170 MG/DL (70 - 105) H 02/12/17 09:42 Hemoglobin A1c % 5.1 % (4.0-6.0) 02/11/17 08:11 Whole Bld Lactic Acid 1.29 mmol/L (0.60-1.99) 02/16/17 05:00 Uric Acid 11.2 mg/dL (2.3-6.6) H 02/15/17 05:00 Calcium 8.2 mg/dL (8.6-10.3) L 02/23/17 05:40 Phosphorus 3.8 mg/dL (2.5-5.0) 02/15/17 05:00 Magnesium 2.2 mg/dL (1.9-2.7) 02/19/17 05:40 Total Bilirubin 0.9 mg/dL (0.3-1.0) 02/23/17 05:40 AST 66 U/L (13-39) H 02/23/17 05:40 ALT 69 U/L (7-52) H 02/23/17 05:40 Alkaline Phosphatase 312 U/L (34-104) H 02/23/17 05:40 Creatine Kinase 67 U/L (30-223) 02/12/17 04:41 CK-MB (CK-2) 1.1 ng/mL (0.6-6.3) 02/09/17 20:27 Troponin I 0.01 ng/mL (0.01-0.05) 02/09/17 20:27 B-Natriuretic Peptide 725.0 pg/mL (5.0-100.0) H 02/23/17 05:40 Total Protein 5.6 gm/dL (6.0-8.3) L 02/23/17 05:40 Albumin 2.8 gm/dL (3.7-5.3) L 02/23/17 05:40 Globulin 2.8 gm/dL 02/23/17 05:40 Albumin/Globulin Ratio 1.0 (1.0-1.8) 02/23/17 05:40 Amylase 23 U/L (29-103) L 02/13/17 05:03 Lipase 13 U/L (11-82) 02/13/17 05:03 Urine Source ZEE PORT 02/14/17 17:40 Urine Color YELLOW 02/14/17 17:40 Urine Clarity SLIGHT HAZY (CLEAR) 02/14/17 17:40 Urine pH 5.5 02/14/17 17:40 Ur Specific [place] 1.020 (1.005-1.030) 02/14/17 17:40 Urine Protein 100 mg/dL (NEGATIVE) H 02/14/17 17:40 Urine Glucose (UA) NEGATIVE mg/dL (NEGATIVE) 02/14/17 17:40 Urine Ketones NEGATIVE mg/dL (NEGATIVE) 02/14/17 17:40 Urine Blood MODERATE (NEGATIVE) H 02/14/17 17:40 Urine Nitrate NEGATIVE (NEGATIVE) 02/14/17 17:40 Urine Bilirubin NEGATIVE (NEGATIVE) 02/14/17 17:40 Urine Urobilinogen 0.2 E.U./dL (0.2 - 1.0) 02/14/17 17:40 Ur Leukocyte Esterase NEGATIVE (NEGATIVE) 02/14/17 17:40 Urine RBC 2-5 /hpf (0-5) 02/14/17 17:40 Urine WBC 2-5 /hpf (0-5) 02/14/17 17:40 Ur Epithelial Cells FEW /lpf (FEW) 02/14/17 17:40 Amorphous Sediment MANY URATES (NONE SEEN) 02/14/17 17:40 Urine Bacteria MODERATE /hpf (NONE SEEN) 02/14/17 17:40 Hyaline Casts 0-2 /lpf (0-2) H 02/09/17 21:05 Urine Yeast FEW /hpf (NONE SEEN) H 02/14/17 17:40 Ur Random Sodium 37 mmol/L 02/14/17 17:40 Urine Creatinine 32.9 mg/dl (Not Estab.) 02/14/17 21:55 Urine Microalbumin 332.1 ug/mL (Not Estab.) 02/14/17 21:55 Microalb/Creat Ratio 1009.4 mg/g creat (0.0-30.0) H 02/14/17 21:55 Stool Leukocyte NO WBC SEEN 02/12/17 00:05 Hepatitis A IgM Ab Negative (Negative) 02/19/17 06:00 Hep Bs Antigen Negative (Negative) 02/19/17 06:00 Hep B Core IgM Ab Negative (Negative) 02/19/17 06:00 Hepatitis C Antibody 0.1 s/co ratio (0.0-0.9) 02/19/17 06:00 - Physical Exam Vitals and I&O: Vital Signs Temp 97.5 F 02/23/17 16:00 Pulse 91 02/23/17 19:00 Resp 20 02/23/17 19:00 BP 135/73 02/23/17 17:34 Pulse Ox 94 02/23/17 19:00 Intake & Output 02/23/17 02/23/17 02/24/17 06:59 18:59 06:59 Intake Total 350 216.667 0 Balance 350 216.667 0 Weight (lbs) 79.379 kg Intake: Intake, IV Amount 250 216.667 0 Piperacillin Sodium/ 50 150 Tazobact 2.25 gm In Sodium Chloride 0.9% 50 ml @ 100 mls/hr IV Q6HR PATRICIA Rx#:[id number] metroNIDAZOLE 500mg/NS 200 66.667 0 100mL 500 mg In 100 ml @ 100 mls/hr IV Q8HR PATRICIA Rx #:[id number] Oral 100 Other: # Voids 2 # Bowel Movements 0 Stool Characteristics Liquid Liquid Active Medications: Current Medications Acetaminophen (Tylenol) 650 mg PO Q4HR PRN PRN Reason: TEMP >100 OR PAIN Stop: 04/11/17 15:21 Acetaminophen/Codeine Phosphate (Tylenol W/Codeine #3) 1 tab PO Q6HR PRN PRN Reason: MODERATE PAIN Stop: 04/11/17 15:21 Last Admin: 02/18/17 05:19 Dose: 1 tab Acetaminophen/Hydrocodone Bitart ([place] 5mg/325mg) 2 tab PO Q4H PRN PRN Reason: Severe Pain Stop: 04/11/17 15:21 Last Admin: 02/18/17 08:48 Dose: 2 tab Albuterol Sulfate (Albuterol 2.5mg/3ml Neb Ud) 2.5 mg HHN Q4HRT PRN PRN Reason: Wheezing Stop: 04/13/17 08:21 Last Admin: 02/17/17 19:36 Dose: 2.5 mg Ascorbic Acid (Vitamin C) 500 mg PO DAILY PATRICIA Stop: 04/12/17 08:59 Last Admin: 02/23/17 08:58 Dose: 500 mg Atorvastatin Calcium (Lipitor) 10 mg PO HS PATRICIA PRN Reason: Protocol Stop: 04/11/17 20:59 Last Admin: 02/23/17 21:08 Dose: 10 mg Furosemide (Lasix) 40 mg IVP BID PATRICIA Stop: 04/19/17 16:59 Last Admin: 02/23/17 17:34 Dose: 40 mg Heparin Sodium (Porcine) (Heparin) 5,000 units SUBQ Q12HR PATRICIA Stop: 04/22/17 20:59 Last Admin: 02/23/17 21:10 Dose: 5,000 units Sodium Chloride (Nacl 0.45%) 1,000 mls @ 0 mls/hr IV .Q0M PATRICIA PRN Reason: KVO Stop: 04/15/17 10:13 Last Admin: 02/14/17 11:04 Dose: 10 mls/hr Metronidazole (Flagyl) 500 mg in 100 mls @ 100 mls/hr IV Q8HR PATRICIA Stop: 04/19/17 21:59 Last Admin: 02/23/17 21:08 Dose: 100 mls/hr Piperacillin Sod/Tazobactam (Sod 2.25 gm/ Sodium Chloride) 50 mls @ 100 mls/hr IV Q6HR PATRICIA Stop: 04/21/17 17:59 Last Infusion: 02/23/17 18:05 Dose: Infused Megestrol Acetate (Megace) 40 mg PO DAILY PATRICIA PRN Reason: Protocol Stop: 04/24/17 12:59 Last Admin: 02/23/17 14:51 Dose: 40 mg Methylprednisolone Sodium Succinate (Solu-Medrol) 20 mg IVP Q8HR PATRICIA Stop: 04/14/17 12:59 Last Admin: 02/23/17 21:07 Dose: 20 mg Miscellaneous (Probiotic Screen) 1 ea MC PRN PRN PRN Reason: PROTOCOL Stop: 04/12/17 09:13 Miscellaneous (Clinical Monitoring) 1 ea MC DAILY PRN PRN Reason: RENAL Stop: 04/19/17 12:28 Ondansetron HCl (Zofran) 4 mg IV Q8H PRN PRN Reason: Nausea / Vomiting Stop: 04/11/17 08:23 Last Admin: 02/16/17 09:10 Dose: 4 mg Pantoprazole Sodium (Protonix) 40 mg PO DAILY PATRICIA Stop: 04/12/17 08:59 Last Admin: 02/23/17 08:59 Dose: 40 mg Potassium Chloride (Klor-Con) 20 meq PO DAILY PATRICIA Stop: 04/17/17 08:59 Last Admin: 02/23/17 08:59 Dose: 20 meq General: no acute distress, well developed, well nourished HEENT: atraumatic, normocephalic Neck: supple, no thyromegaly, no rigid Cardiovascular: S1S2, regular Lungs: clear to auscultation bilaterally, clear to percussion Abdomen: soft, no tender, no distended Extremities: other (Left knee has no swelling and incision is intact.), no cyanosis, no clubbing Neurological: awake, alert, oriented - Procedures Procedures: Procedures Procedure Code Date INSERT TUNNELED CV CATH [id number] 02/09/17 INSERTION OF INFUSION DEV INTO L SUBCLAV VEIN, PERC APPROACH [id number] 02/09/17 Infectious Disease Assmt/Plan - Problem List Patient Problems: All Active Problems NAUSEA AND VOMITING WITH DEHYDRATION (Acute) sepsis (Acute) Sepsis affecting skin (Acute) L02.91 - Assessment Assessment: 1. Leukocytosis, without bandemia improving. ? steroid ? Sepsis ? CDAC. 2. Pneumonia. 3. H/o HTN. 4. H/o Anemia. 5. Metabolic acidosis, improved. 6. SU, ? ATN. worsening of the creatinine. 7. Small superficial leg wound at the distal end, no sign of infection. 8. CHF. 9. H/O Left TKR. no clinical sign of infection. h/o prosthesis infection, treated recently. 10. Suspect aspiration pneumonia. 11. elevated liver enzymes. 12. Suspect CDAC , as patient has very high WBC count. Recommendations: Antibiotic cheek, continue zosyn for few more days and continue flagyl and Stool for C diff. wound care. Nutritional Asmnt/Malnutr-PDOC - Dietary Evaluation Malnutrition Findings (Please click <Entered> for more info): Nutritional Asmnt/Malnutrition Start: 02/14/17 13: 04 Text: Status: Complete Freq: Document 02/14/17 13:05 GSUN (Rec: 02/14/17 13:21 GSUN [id number]) Nutritional Asmnt/Malnutrition Patient General Information Nutritional Screening Moderate Risk Screening Pertinent Medical Hx/Surgical Hx Dx: Septic shock, hypotension, dehydration, metabolic acidosis improved, SU ?ATN, suspect aspiration PNA HTN, left knee prothesis, dyslipidemia, anemia Subjective Information 66 year old female, Czech speaking. Pt was receiving breathing treatment [facility]. Observed clear liquid tray at bedside. MD progress note 02/13: DC NG tube and start PO as tolerated. Spoke to STEFANIE Mayorga RN stated for breakfast pt tolerated 2 juices, declined broth, RN will remove mask and encourage lunch shortly. No significant wasting noted. 02/11 KUB: mild ielus. Current Diet Order/ Nutrition Support Clear liquid Pertinent Medications Vitamin C, Lipitor, Culturelle , Solu-Medrol, Zofran, Protonix, Nacl 0.45% Pertinent Labs 02/13: potassium 3L 02/14: BUN 30H, creatinine 1.8H (declining) Nutritional Hx/Data Height 1.68 m Height (Calculated Centimeters) 167.6 Current Weight (lbs) 75.75 kg Weight (Calculated Kilograms) 75.7 Weight (Calculated Grams) 89801.9 [place] Body Weight 130 Weight Status Overweight GI Symptoms Skin Integrity/Comment: Josias 14. Non-pitting edema bilateral feet. 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 Estimated Nutritional Goals Calories/Kcals/Kg IBW 130lb/59.1kg Kcals Calculated 1478-1773kcal (25-30kcal/kg) Protein Calculated 59g (1g/kg) Fluid: ml 1478-1773ml (1ml/kcal) Nutritional Problem 1. Problem Problem Impaired nutrient utilization related to Etiology renal dysfunction, per MD note SU ?ATN Signs/Symptoms: BUN 30H, creatinine 1.8H Intervention/Recommendation Comments 1. Recommend advance diet as tolerated to low sodium diet, to aid in renal function. No renal restriction due to hx of hypokalemia. Expected Outcomes/Goals Expected Outcomes/Goals 1. Pt to resume diet and meet at least 75% fo estimated nutritional needs.
[2017-02-24] MEDS: Piperacillin/Tazobact 2.25 gm in 0.9% NS 50 ML IV SCH ×3 (00:38→12:15)
[2017-02-24] MEDS: metroNIDAZOLE 500mg/NS 100mL 500 MG/100 ML BAG IV SCH ×3 (05:50→20:30)
[2017-02-24] MEDS: methylPREDNISolone SS 40 mg Vial IVP SCH ×2 (05:52→12:16)
[2017-02-24 06:28] LABS: HEMOGLOBIN 12.2 gm/dL (11.7-16.1); MEAN CELL VOLUME 83.9 fl (81-100); MEAN CORPUSCULAR HEMOGLOBIN 28.1 pg (27.0-31.0); MEAN CORPUSCULAR HGB CONC 33.5 pg (28.0-36.0); MEAN PLATELET VOLUME 9.1 fl; RED BLOOD COUNT 4.33 Mil/cmm (3.80-5.20); RED CELL DISTRIBUTION WIDTH 18.4 % (11.5-20.0)
[2017-02-24 07:09] LABS: ANION GAP 15.4 (7.0-16.0); BUN/CREATININE RATIO 30.7; CALCIUM SERUM 9.2 mg/dL (8.6-10.3); CARBON DIOXIDE 20.3 mEq/L (21.0-31.0); CREATININE - SERUM 1.4 mg/dL (0.6-1.2); POTASSIUM SERUM 3.7 mEq/L (3.5-5.1)
[2017-02-24 08:39] LABS: HEMATOCRIT 36.3 % (35.0-45.0); PLATELET COUNT 319 Th/cmm (150-400); WHITE BLOOD COUNT 16.3 Th/cmm (4.8-10.8)
[2017-02-24] MEDS: Pantoprazole 40 mg EC Tab PO SCH (09:08)
[2017-02-24] MEDS: Multivitamin w/ Minerals Tab PO SCH (09:08)
[2017-02-24] MEDS: Potassium Chloride 20 mEq ER Tab PO SCH (09:08)
[2017-02-24 09:12] LABS: BAND NEUTROPHILE 1 % (0-10); NEUTROPHILS 79 % (40-80); PLATELET ESTIMATE ADEQUATE (NORMAL); PLATELET MORPHOLOGY NORMAL (NORMAL); TOTAL CELLS COUNTED 100
--- NOTE | 2017-02-24 11:05 | General Progress Note ---
Subjective - Review of Systems Events since last encounter: no change Subjective: pt is awake denies any pain pt states she in comfortable Objective - Results Result Diagrams: 02/24/17 05:30 02/24/17 05:30 Recent Labs: Laboratory Last Values WBC 16.3 Th/cmm (4.8-10.8) H 02/24/17 05:30 Corrected WBC (auto) 52.5 Th/cmm (4.8-10.8) H* 02/19/17 09:00 RBC 4.33 Mil/cmm (3.80-5.20) 02/24/17 05:30 Hgb 12.2 gm/dL (11.7-16.1) 02/24/17 05:30 Hct 36.3 % (35.0-45.0) D 02/24/17 05:30 MCV 83.9 fl (81-100) 02/24/17 05:30 MCH 28.1 pg (27.0-31.0) 02/24/17 05:30 MCHC Differential 33.5 pg (28.0-36.0) 02/24/17 05:30 RDW 18.4 % (11.5-20.0) 02/24/17 05:30 Plt Count 319 Th/cmm (150-400) D 02/24/17 05:30 MPV 9.1 fl 02/24/17 05:30 Neutrophils % 84.8 % (40.0-80.0) H 02/16/17 05:00 Band Neutrophils % 1 % (0-10) 02/24/17 05:30 Lymphocytes % 10.0 % (20.0-50.0) L 02/16/17 05:00 Monocytes % 2.7 % (2.0-10.0) 02/16/17 05:00 Eosinophils % 0.1 % (0.0-5.0) 02/16/17 05:00 Basophils % 2.4 % (0.0-2.0) H 02/16/17 05:00 Neutrophils (Manual) 79 % (40-80) 02/24/17 05:30 Lymphocytes 13 % (20-50) L 02/24/17 05:30 Monocytes 7 % (2-10) 02/24/17 05:30 Eosinophils 1 % (0-5) 02/15/17 05:00 Basophils 1 % (0-3) 02/09/17 20:27 Metamyelocytes 1 % (0-0) H 02/23/17 05:40 Nucleated RBCs 1.0 % (0-0) H 02/23/17 05:40 Platelet Estimate ADEQUATE (NORMAL) 02/24/17 05:30 Platelet Morphology NORMAL (NORMAL) 02/24/17 05:30 Anisocytosis 1+ 02/18/17 05:55 RBC Morph Micro Appear NORMAL (NORMAL) 02/24/17 05:30 Smear Path Review REVIEWED 02/22/17 06:15 Eos Smear Source URINE 02/14/17 17:40 Eos Smear Total Cells NONE SEEN (NONE SEEN) 02/14/17 17:40 PT 15.6 SECONDS (9.5-11.5) H 02/19/17 16:04 INR 1.47 (0.5-1.4) H 02/19/17 16:04 PTT (Actin FS) 29.9 SECONDS (26.0-38.0) 02/19/17 16:04 Specimen Source Arterial 02/14/17 16:00 Sample Site Right Radial 02/14/17 16:00 pH 7.40 (7.35-7.45) 02/14/17 16:00 pCO2 33.0 mmHg (35.0-45.0) L 02/14/17 16:00 pO2 103.0 mmHg (80.0-100.0) H 02/14/17 16:00 HCO3 22.1 mEq/L (20.0-26.0) 02/14/17 16:00 Base Excess -3.6 mEq/L (-3.0-3.0) L 02/14/17 16:00 O2 Saturation 98.0 % (92.0-100.0) 02/14/17 16:00 Robin Test Positive 02/14/17 16:00 Vent Rate 12 02/14/17 16:00 Inspired O2 40 02/14/17 16:00 Tidal Volume NA 02/14/17 16:00 PEEP 6 02/14/17 16:00 Pressure (ins/psv/peep) 6 02/14/17 16:00 Critical Value LZHANG 02/14/17 16:00 Sodium 137 mEq/L (136-145) 02/24/17 05:30 Potassium 3.7 mEq/L (3.5-5.1) 02/24/17 05:30 Chloride 105 mEq/L (98-107) 02/24/17 05:30 Carbon Dioxide 20.3 mEq/L (21.0-31.0) L 02/24/17 05:30 Anion Gap 15.4 (7.0-16.0) 02/24/17 05:30 BUN 43 mg/dL (7-25) H 02/24/17 05:30 Creatinine 1.4 mg/dL (0.6-1.2) H 02/24/17 05:30 Est GFR ( Amer) 48.5 ml/min (>90) 02/24/17 05:30 Est GFR (Non-Af Amer) 40.1 ml/min 02/24/17 05:30 BUN/Creatinine Ratio 30.7 02/24/17 05:30 Glucose 115 mg/dL (70-105) H 02/24/17 05:30 POC Glucose 170 MG/DL (70 - 105) H 02/12/17 09:42 Hemoglobin A1c % 5.1 % (4.0-6.0) 02/11/17 08:11 Whole Bld Lactic Acid 1.29 mmol/L (0.60-1.99) 02/16/17 05:00 Uric Acid 11.2 mg/dL (2.3-6.6) H 02/15/17 05:00 Calcium 9.2 mg/dL (8.6-10.3) 02/24/17 05:30 Phosphorus 3.8 mg/dL (2.5-5.0) 02/15/17 05:00 Magnesium 2.2 mg/dL (1.9-2.7) 02/19/17 05:40 Total Bilirubin 1.0 mg/dL (0.3-1.0) 02/24/17 05:30 AST 81 U/L (13-39) H 02/24/17 05:30 ALT 83 U/L (7-52) H 02/24/17 05:30 Alkaline Phosphatase 364 U/L (34-104) H 02/24/17 05:30 Creatine Kinase 67 U/L (30-223) 02/12/17 04:41 CK-MB (CK-2) 1.1 ng/mL (0.6-6.3) 02/09/17 20:27 Troponin I 0.01 ng/mL (0.01-0.05) 02/09/17 20:27 B-Natriuretic Peptide 783.0 pg/mL (5.0-100.0) H 02/24/17 05:30 Total Protein 6.5 gm/dL (6.0-8.3) 02/24/17 05:30 Albumin 3.2 gm/dL (3.7-5.3) L 02/24/17 05:30 Globulin 3.3 gm/dL 02/24/17 05:30 Albumin/Globulin Ratio 1.0 (1.0-1.8) 02/24/17 05:30 Amylase 23 U/L (29-103) L 02/13/17 05:03 Lipase 13 U/L (11-82) 02/13/17 05:03 Urine Source [place]EE [place] 02/14/17 17:40 Urine Color YELLOW 02/14/17 17:40 Urine Clarity SLIGHT HAZY (CLEAR) 02/14/17 17:40 Urine pH 5.5 02/14/17 17:40 Ur Specific [place] 1.020 (1.005-1.030) 02/14/17 17:40 Urine Protein 100 mg/dL (NEGATIVE) H 02/14/17 17:40 Urine Glucose (UA) NEGATIVE mg/dL (NEGATIVE) 02/14/17 17:40 Urine Ketones NEGATIVE mg/dL (NEGATIVE) 02/14/17 17:40 Urine Blood MODERATE (NEGATIVE) H 02/14/17 17:40 Urine Nitrate NEGATIVE (NEGATIVE) 02/14/17 17:40 Urine Bilirubin NEGATIVE (NEGATIVE) 02/14/17 17:40 Urine Urobilinogen 0.2 E.U./dL (0.2 - 1.0) 02/14/17 17:40 Ur Leukocyte Esterase NEGATIVE (NEGATIVE) 02/14/17 17:40 Urine RBC 2-5 /hpf (0-5) 02/14/17 17:40 Urine WBC 2-5 /hpf (0-5) 02/14/17 17:40 Ur Epithelial Cells FEW /lpf (FEW) 02/14/17 17:40 Amorphous Sediment MANY URATES (NONE SEEN) 02/14/17 17:40 Urine Bacteria MODERATE /hpf (NONE SEEN) 02/14/17 17:40 Hyaline Casts 0-2 /lpf (0-2) H 02/09/17 21:05 Urine Yeast FEW /hpf (NONE SEEN) H 02/14/17 17:40 Ur Random Sodium 37 mmol/L 02/14/17 17:40 Urine Creatinine 32.9 mg/dl (Not Estab.) 02/14/17 21:55 Urine Microalbumin 332.1 ug/mL (Not Estab.) 02/14/17 21:55 Microalb/Creat Ratio 1009.4 mg/g creat (0.0-30.0) H 02/14/17 21:55 Stool Leukocyte NO WBC SEEN 02/12/17 00:05 Hepatitis A IgM Ab Negative (Negative) 02/19/17 06:00 Hep Bs Antigen Negative (Negative) 02/19/17 06:00 Hep B Core IgM Ab Negative (Negative) 02/19/17 06:00 Hepatitis C Antibody 0.1 s/co ratio (0.0-0.9) 02/19/17 06:00 - Physical Exam Vitals and I&O: Vital Signs Temp 97.2 F 02/24/17 04:00 Pulse 90 02/24/17 04:00 Resp 16 02/24/17 04:00 BP 114/75 02/24/17 09:08 Pulse Ox 98 02/24/17 04:00 Intake & Output 02/23/17 02/24/17 02/24/17 18:59 06:59 18:59 Intake Total 216.667 310 50 Balance 216.667 310 50 Weight (lbs) 78.471 kg Intake: Intake, IV Amount 216.667 250 50 Piperacillin Sodium/ 150 50 50 Tazobact 2.25 gm In Sodium Chloride 0.9% 50 ml @ 100 mls/hr IV Q6HR PATRICIA Rx#:[id number] metroNIDAZOLE 500mg/NS 66.667 200 100mL 500 mg In 100 ml @ 100 mls/hr IV Q8HR PATRICIA Rx #:[id number] Oral 60 Other: # Voids 3 # Bowel Movements 2 Stool Characteristics Liquid Liquid Active Medications: Current Medications Acetaminophen (Tylenol) 650 mg PO Q4HR PRN PRN Reason: TEMP >100 OR PAIN Stop: 04/11/17 15:21 Acetaminophen/Codeine Phosphate (Tylenol W/Codeine #3) 1 tab PO Q6HR PRN PRN Reason: MODERATE PAIN Stop: 04/11/17 15:21 Last Admin: 02/18/17 05:19 Dose: 1 tab Acetaminophen/Hydrocodone Bitart ([place] 5mg/325mg) 2 tab PO Q4H PRN PRN Reason: Severe Pain Stop: 04/11/17 15:21 Last Admin: 02/18/17 08:48 Dose: 2 tab Albuterol Sulfate (Albuterol 2.5mg/3ml Neb Ud) 2.5 mg HHN Q4HRT PRN PRN Reason: Wheezing Stop: 04/13/17 08:21 Last Admin: 02/17/17 19:36 Dose: 2.5 mg Ascorbic Acid (Vitamin C) 500 mg PO DAILY PATRICIA Stop: 04/12/17 08:59 Last Admin: 02/24/17 09:08 Dose: 500 mg Atorvastatin Calcium (Lipitor) 10 mg PO HS PATRICIA PRN Reason: Protocol Stop: 04/11/17 20:59 Last Admin: 02/23/17 21:08 Dose: 10 mg Furosemide (Lasix) 40 mg IVP BID PATRICIA Stop: 04/19/17 16:59 Last Admin: 02/24/17 09:08 Dose: 40 mg Heparin Sodium (Porcine) (Heparin) 5,000 units SUBQ Q12HR PATRICIA Stop: 04/22/17 20:59 Last Admin: 02/23/17 21:10 Dose: 5,000 units Sodium Chloride (Nacl 0.45%) 1,000 mls @ 0 mls/hr IV .Q0M PATRICIA PRN Reason: KVO Stop: 04/15/17 10:13 Last Admin: 02/14/17 11:04 Dose: 10 mls/hr Metronidazole (Flagyl) 500 mg in 100 mls @ 100 mls/hr IV Q8HR PATRICIA Stop: 04/19/17 21:59 Last Infusion: 02/24/17 06:50 Dose: Infused Piperacillin Sod/Tazobactam (Sod 2.25 gm/ Sodium Chloride) 50 mls @ 100 mls/hr IV Q6HR PATRICIA Stop: 04/21/17 17:59 Last Infusion: 02/24/17 07:20 Dose: Infused Megestrol Acetate (Megace) 40 mg PO DAILY PATRICIA PRN Reason: Protocol Stop: 04/24/17 12:59 Last Admin: 02/24/17 09:08 Dose: 40 mg Methylprednisolone Sodium Succinate (Solu-Medrol) 20 mg IVP Q8HR PATRICIA Stop: 04/14/17 12:59 Last Admin: 02/24/17 05:52 Dose: 20 mg Miscellaneous (Probiotic Screen) 1 ea PRN PRN PRN Reason: PROTOCOL Stop: 04/12/17 09:13 Miscellaneous (Clinical Monitoring) 1 ea DAILY PRN PRN Reason: RENAL Stop: 04/19/17 12:28 Ondansetron HCl (Zofran) 4 mg IV Q8H PRN PRN Reason: Nausea / Vomiting Stop: 04/11/17 08:23 Last Admin: 02/16/17 09:10 Dose: 4 mg Pantoprazole Sodium (Protonix) 40 mg PO DAILY PATRICIA Stop: 04/12/17 08:59 Last Admin: 02/24/17 09:08 Dose: 40 mg Potassium Chloride (Klor-Con) 20 meq PO DAILY [facility] Stop: 04/17/17 08:59 Last Admin: 02/24/17 09:08 Dose: 20 meq General: Alert, Mild distress HEENT: Atraumatic, PERRLA, EOMI, Mucous membr. moist/pink Neck: Supple, +2 carotid pulse wo bruit Cardiovascular: Regular rate, Normal S1, Normal S2 Lungs: Other (few rhonchi) Abdomen: Bowel sounds, Soft Extremities: no Edema Neurological: Sensation intact Skin: no Rash Psych/Mental Status: Mood NL - Procedures Procedures: Procedures Procedure Code Date INSERT TUNNELED CV CATH [id number] 02/09/17 INSERTION OF INFUSION DEV INTO L SUBCLAV VEIN, PERC APPROACH [id number] 02/09/17 Assessment/Plan - Problem List Patient Problems: All Active Problems NAUSEA AND VOMITING WITH DEHYDRATION (Acute) sepsis (Acute) Sepsis affecting skin (Acute) L02.91 - Assessment Assessment: Current Active Problems Problem Status Onset NAUSEA AND VOMITING WITH DEHYDRATION Acute leukocytosis distended gall bladder chf s/p arf s/p dialysis trachycardia - Plan Plan: as per nephro Nutritional Asmnt/Malnutr-PDOC - Dietary Evaluation Malnutrition Findings (Please click <Entered> for more info): Nutritional Asmnt/Malnutrition Start: 02/14/17 13: 04 Text: Status: Complete Freq: Document 02/14/17 13:05 DREAUN (Rec: 02/14/17 13:21 GSUN [id number]) Nutritional Asmnt/Malnutrition Patient General Information Nutritional Screening Moderate Risk Screening Pertinent Medical Hx/Surgical Hx Dx: Septic shock, hypotension, dehydration, metabolic acidosis improved, SU ?ATN, suspect aspiration PNA HTN, left knee prothesis, dyslipidemia, anemia Subjective Information 66 year old female, Greek speaking. Pt was receiving breathing treatment during [facility]. Observed clear liquid tray at bedside. MD progress note 02/13: DC NG tube and start PO as tolerated. Spoke to RN STEFANIE Mayorga stated for breakfast pt tolerated 2 juices, declined broth, RN will remove mask and encourage lunch shortly. No significant wasting noted. 02/11 KUB: mild ielus. Current Diet Order/ Nutrition Support Clear liquid Pertinent Medications Vitamin C, Lipitor, [place] , Solu-Medrol, Zofran, Protonix, Nacl 0.45% Pertinent Labs 02/13: potassium 3L 02/14: BUN 30H, creatinine 1.8H (declining) Nutritional Hx/Data Height 1.68 m Height (Calculated Centimeters) 167.6 Current Weight (lbs) 75.75 kg Weight (Calculated Kilograms) 75.7 Weight (Calculated Grams) 98242.9 [place] Body Weight 130 Weight Status Overweight GI Symptoms Skin Integrity/Comment: Josias 14. Non-pitting edema bilateral feet. 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 Estimated Nutritional Goals Calories/Kcals/Kg IBW 130lb/59.1kg Kcals Calculated 1478-1773kcal (25-30kcal/kg) Protein Calculated 59g (1g/kg) Fluid: ml 1478-1773ml (1ml/kcal) Nutritional Problem 1. Problem Problem Impaired nutrient utilization related to Etiology renal dysfunction, per MD note SU ?ATN Signs/Symptoms: BUN 30H, creatinine 1.8H Intervention/Recommendation Comments 1. Recommend advance diet as tolerated to low sodium diet, to aid in renal function. No renal restriction due to hx of hypokalemia. Expected Outcomes/Goals Expected Outcomes/Goals 1. Pt to resume diet and meet at least 75% fo estimated nutritional needs.
--- NOTE | 2017-02-24 14:09 | General Progress Note ---
Subjective - Review of Systems Service Date: 02/24/17 Subjective: More awake, verbal, mild tachypnea, poor appetite Objective - Results Result Diagrams: 02/24/17 05:30 02/24/17 05:30 Recent Labs: Laboratory Last Values WBC 16.3 Th/cmm (4.8-10.8) H 02/24/17 05:30 Corrected WBC (auto) 52.5 Th/cmm (4.8-10.8) H* 02/19/17 09:00 RBC 4.33 Mil/cmm (3.80-5.20) 02/24/17 05:30 Hgb 12.2 gm/dL (11.7-16.1) 02/24/17 05:30 Hct 36.3 % (35.0-45.0) D 02/24/17 05:30 MCV 83.9 fl (81-100) 02/24/17 05:30 MCH 28.1 pg (27.0-31.0) 02/24/17 05:30 MCHC Differential 33.5 pg (28.0-36.0) 02/24/17 05:30 RDW 18.4 % (11.5-20.0) 02/24/17 05:30 Plt Count 319 Th/cmm (150-400) D 02/24/17 05:30 MPV 9.1 fl 02/24/17 05:30 Neutrophils % 84.8 % (40.0-80.0) H 02/16/17 05:00 Band Neutrophils % 1 % (0-10) 02/24/17 05:30 Lymphocytes % 10.0 % (20.0-50.0) L 02/16/17 05:00 Monocytes % 2.7 % (2.0-10.0) 02/16/17 05:00 Eosinophils % 0.1 % (0.0-5.0) 02/16/17 05:00 Basophils % 2.4 % (0.0-2.0) H 02/16/17 05:00 Neutrophils (Manual) 79 % (40-80) 02/24/17 05:30 Lymphocytes 13 % (20-50) L 02/24/17 05:30 Monocytes 7 % (2-10) 02/24/17 05:30 Eosinophils 1 % (0-5) 02/15/17 05:00 Basophils 1 % (0-3) 02/09/17 20:27 Metamyelocytes 1 % (0-0) H 02/23/17 05:40 Nucleated RBCs 1.0 % (0-0) H 02/23/17 05:40 Platelet Estimate ADEQUATE (NORMAL) 02/24/17 05:30 Platelet Morphology NORMAL (NORMAL) 02/24/17 05:30 Anisocytosis 1+ 02/18/17 05:55 RBC Morph Micro Appear NORMAL (NORMAL) 02/24/17 05:30 Smear Path Review REVIEWED 02/22/17 06:15 Eos Smear Source URINE 02/14/17 17:40 Eos Smear Total Cells NONE SEEN (NONE SEEN) 02/14/17 17:40 PT 15.6 SECONDS (9.5-11.5) H 02/19/17 16:04 INR 1.47 (0.5-1.4) H 02/19/17 16:04 PTT (Actin FS) 29.9 SECONDS (26.0-38.0) 02/19/17 16:04 Specimen Source Arterial 02/14/17 16:00 Sample Site Right Radial 02/14/17 16:00 pH 7.40 (7.35-7.45) 02/14/17 16:00 pCO2 33.0 mmHg (35.0-45.0) L 02/14/17 16:00 pO2 103.0 mmHg (80.0-100.0) H 02/14/17 16:00 HCO3 22.1 mEq/L (20.0-26.0) 02/14/17 16:00 Base Excess -3.6 mEq/L (-3.0-3.0) L 02/14/17 16:00 O2 Saturation 98.0 % (92.0-100.0) 02/14/17 16:00 Robin Test Positive 02/14/17 16:00 Vent Rate 12 02/14/17 16:00 Inspired O2 40 02/14/17 16:00 Tidal Volume NA 02/14/17 16:00 PEEP 6 02/14/17 16:00 Pressure (ins/psv/peep) 6 02/14/17 16:00 Critical Value LZHANG 02/14/17 16:00 Sodium 137 mEq/L (136-145) 02/24/17 05:30 Potassium 3.7 mEq/L (3.5-5.1) 02/24/17 05:30 Chloride 105 mEq/L (98-107) 02/24/17 05:30 Carbon Dioxide 20.3 mEq/L (21.0-31.0) L 02/24/17 05:30 Anion Gap 15.4 (7.0-16.0) 02/24/17 05:30 BUN 43 mg/dL (7-25) H 02/24/17 05:30 Creatinine 1.4 mg/dL (0.6-1.2) H 02/24/17 05:30 Est GFR ( Amer) 48.5 ml/min (>90) 02/24/17 05:30 Est GFR (Non-Af Amer) 40.1 ml/min 02/24/17 05:30 BUN/Creatinine Ratio 30.7 02/24/17 05:30 Glucose 115 mg/dL (70-105) H 02/24/17 05:30 POC Glucose 170 MG/DL (70 - 105) H 02/12/17 09:42 Hemoglobin A1c % 5.1 % (4.0-6.0) 02/11/17 08:11 Whole Bld Lactic Acid 1.29 mmol/L (0.60-1.99) 02/16/17 05:00 Uric Acid 11.2 mg/dL (2.3-6.6) H 02/15/17 05:00 Calcium 9.2 mg/dL (8.6-10.3) 02/24/17 05:30 Phosphorus 3.8 mg/dL (2.5-5.0) 02/15/17 05:00 Magnesium 2.2 mg/dL (1.9-2.7) 02/19/17 05:40 Total Bilirubin 1.0 mg/dL (0.3-1.0) 02/24/17 05:30 AST 81 U/L (13-39) H 02/24/17 05:30 ALT 83 U/L (7-52) H 02/24/17 05:30 Alkaline Phosphatase 364 U/L (34-104) H 02/24/17 05:30 Creatine Kinase 67 U/L (30-223) 02/12/17 04:41 CK-MB (CK-2) 1.1 ng/mL (0.6-6.3) 02/09/17 20:27 Troponin I 0.01 ng/mL (0.01-0.05) 02/09/17 20:27 B-Natriuretic Peptide 783.0 pg/mL (5.0-100.0) H 02/24/17 05:30 Total Protein 6.5 gm/dL (6.0-8.3) 02/24/17 05:30 Albumin 3.2 gm/dL (3.7-5.3) L 02/24/17 05:30 Globulin 3.3 gm/dL 02/24/17 05:30 Albumin/Globulin Ratio 1.0 (1.0-1.8) 02/24/17 05:30 Amylase 23 U/L (29-103) L 02/13/17 05:03 Lipase 13 U/L (11-82) 02/13/17 05:03 Urine Source ZEE PORT 02/14/17 17:40 Urine Color YELLOW 02/14/17 17:40 Urine Clarity SLIGHT HAZY (CLEAR) 02/14/17 17:40 Urine pH 5.5 02/14/17 17:40 Ur Specific Hendricks 1.020 (1.005-1.030) 02/14/17 17:40 Urine Protein 100 mg/dL (NEGATIVE) H 02/14/17 17:40 Urine Glucose (UA) NEGATIVE mg/dL (NEGATIVE) 02/14/17 17:40 Urine Ketones NEGATIVE mg/dL (NEGATIVE) 02/14/17 17:40 Urine Blood MODERATE (NEGATIVE) H 02/14/17 17:40 Urine Nitrate NEGATIVE (NEGATIVE) 02/14/17 17:40 Urine Bilirubin NEGATIVE (NEGATIVE) 02/14/17 17:40 Urine Urobilinogen 0.2 E.U./dL (0.2 - 1.0) 02/14/17 17:40 Ur Leukocyte Esterase NEGATIVE (NEGATIVE) 02/14/17 17:40 Urine RBC 2-5 /hpf (0-5) 02/14/17 17:40 Urine WBC 2-5 /hpf (0-5) 02/14/17 17:40 Ur Epithelial Cells FEW /lpf (FEW) 02/14/17 17:40 Amorphous Sediment MANY URATES (NONE SEEN) 02/14/17 17:40 Urine Bacteria MODERATE /hpf (NONE SEEN) 02/14/17 17:40 Hyaline Casts 0-2 /lpf (0-2) H 02/09/17 21:05 Urine Yeast FEW /hpf (NONE SEEN) H 02/14/17 17:40 Ur Random Sodium 37 mmol/L 02/14/17 17:40 Urine Creatinine 32.9 mg/dl (Not Estab.) 02/14/17 21:55 Urine Microalbumin 332.1 ug/mL (Not Estab.) 02/14/17 21:55 Microalb/Creat Ratio 1009.4 mg/g creat (0.0-30.0) H 02/14/17 21:55 Stool Leukocyte NO WBC SEEN 02/12/17 00:05 Hepatitis A IgM Ab Negative (Negative) 02/19/17 06:00 Hep Bs Antigen Negative (Negative) 02/19/17 06:00 Hep B Core IgM Ab Negative (Negative) 02/19/17 06:00 Hepatitis C Antibody 0.1 s/co ratio (0.0-0.9) 02/19/17 06:00 - Physical Exam Vitals and I&O: Vital Signs Temp 97.2 F 02/24/17 04:00 Pulse 90 02/24/17 04:00 Resp 16 02/24/17 04:00 BP 114/75 02/24/17 09:08 Pulse Ox 98 02/24/17 04:00 Intake & Output 02/23/17 02/24/17 02/24/17 18:59 06:59 18:59 Intake Total 216.667 310 50 Balance 216.667 310 50 Weight (lbs) 78.471 kg Intake: Intake, IV Amount 216.667 250 50 Piperacillin Sodium/ 150 50 50 Tazobact 2.25 gm In Sodium Chloride 0.9% 50 ml @ 100 mls/hr IV Q6HR PATRICIA Rx#:[id number] metroNIDAZOLE 500mg/NS 66.667 200 100mL 500 mg In 100 ml @ 100 mls/hr IV Q8HR PATRICIA Rx #:[id number] Oral 60 Other: # Voids 3 # Bowel Movements 2 Stool Characteristics Liquid Liquid Active Medications: Current Medications Acetaminophen (Tylenol) 650 mg PO Q4HR PRN PRN Reason: TEMP >100 OR PAIN Stop: 04/11/17 15:21 Acetaminophen/Codeine Phosphate (Tylenol W/Codeine #3) 1 tab PO Q6HR PRN PRN Reason: MODERATE PAIN Stop: 04/11/17 15:21 Last Admin: 02/18/17 05:19 Dose: 1 tab Acetaminophen/Hydrocodone Bitart (Dixon 5mg/325mg) 2 tab PO Q4H PRN PRN Reason: Severe Pain Stop: 04/11/17 15:21 Last Admin: 02/18/17 08:48 Dose: 2 tab Albuterol Sulfate (Albuterol 2.5mg/3ml Neb Ud) 2.5 mg HHN Q4HRT PRN PRN Reason: Wheezing Stop: 04/13/17 08:21 Last Admin: 02/17/17 19:36 Dose: 2.5 mg Ascorbic Acid (Vitamin C) 500 mg PO DAILY PATRICIA Stop: 04/12/17 08:59 Last Admin: 02/24/17 09:08 Dose: 500 mg Atorvastatin Calcium (Lipitor) 10 mg PO HS PATRICIA PRN Reason: Protocol Stop: 04/11/17 20:59 Last Admin: 02/23/17 21:08 Dose: 10 mg Furosemide (Lasix) 20 mg PO DAILY PATRICIA Stop: 04/26/17 08:59 Heparin Sodium (Porcine) (Heparin) 5,000 units SUBQ Q12HR PATRICIA Stop: 04/22/17 20:59 Last Admin: 02/24/17 12:15 Dose: 5,000 units Sodium Chloride (Nacl 0.45%) 1,000 mls @ 0 mls/hr IV .Q0M PATRICIA PRN Reason: KVO Stop: 04/15/17 10:13 Last Admin: 02/14/17 11:04 Dose: 10 mls/hr Metronidazole (Flagyl) 500 mg in 100 mls @ 100 mls/hr IV Q8HR PATRICIA Stop: 04/19/17 21:59 Last Infusion: 02/24/17 06:50 Dose: Infused Piperacillin Sod/Tazobactam (Sod 2.25 gm/ Sodium Chloride) 50 mls @ 100 mls/hr IV Q6HR PATRICIA Stop: 04/21/17 17:59 Last Admin: 02/24/17 12:15 Dose: 100 mls/hr Megestrol Acetate (Megace) 40 mg PO DAILY PATRICIA PRN Reason: Protocol Stop: 04/24/17 12:59 Last Admin: 02/24/17 09:08 Dose: 40 mg Methylprednisolone Sodium Succinate (Solu-Medrol) 20 mg IVP Q8HR PATRICIA Stop: 04/14/17 12:59 Last Admin: 02/24/17 12:16 Dose: 20 mg Miscellaneous (Probiotic Screen) 1 ea MC PRN PRN PRN Reason: PROTOCOL Stop: 04/12/17 09:13 Miscellaneous (Clinical Monitoring) 1 ea MC DAILY PRN PRN Reason: RENAL Stop: 04/19/17 12:28 Ondansetron HCl (Zofran) 4 mg IV Q8H PRN PRN Reason: Nausea / Vomiting Stop: 04/11/17 08:23 Last Admin: 02/16/17 09:10 Dose: 4 mg Pantoprazole Sodium (Protonix) 40 mg PO DAILY PATRICIA Stop: 04/12/17 08:59 Last Admin: 02/24/17 09:08 Dose: 40 mg Potassium Chloride (Klor-Con) 20 meq PO DAILY PATRICIA Stop: 04/17/17 08:59 Last Admin: 02/24/17 09:08 Dose: 20 meq General: Alert, Mild distress HEENT: Atraumatic, PERRLA, EOMI, Mucous membr. moist/pink Neck: Supple, +2 carotid pulse wo bruit Cardiovascular: Regular rate, Normal S1, Normal S2 Lungs: Other (few rhonchi) Abdomen: Bowel sounds, Soft Extremities: no Edema Neurological: Sensation intact Skin: no Rash Psych/Mental Status: Mood NL - Procedures Procedures: Procedures Procedure Code Date INSERT TUNNELED CV CATH [id number] 02/09/17 INSERTION OF INFUSION DEV INTO L SUBCLAV VEIN, PERC APPROACH [id number] 02/09/17 Assessment/Plan - Problem List Patient Problems: All Active Problems NAUSEA AND VOMITING WITH DEHYDRATION (Acute) sepsis (Acute) Sepsis affecting skin (Acute) L02.91 - Assessment Assessment: Acute kidney injury secondary to acute tubular injury Fractional excretion of sodium is 1.1% suggestive of intrinsic renal failure Shock secondary to sepsis Distended gallbladder with normal acute cholecystitis Abdominal pain secondary to ileus Ileus secondary to sepsis Acute decompensation of systolic congestive heart failure(EJF 15-20%) Respiratory failure secondary to aspiration pneumonia/CHF Anemia of chronic kidney disease Dyslipidemia Status post Infected prosthesis left knee, status post I&D Purely anion gap metabolic acidosis with respiratory alkalosis Sepsis secondary to aspiration pneumonia Worsening liver enzymes due to sepsis, medications, hypotension Acalculous Cholecystitis - Plan Plan: Lab - Result Diagrams 02/15/17 05:00 02/15/17 05:00 Current Medications Acetaminophen (Tylenol) 650 mg PO Q4HR PRN PRN Reason: TEMP >100 OR PAIN Stop: 04/11/17 15:21 Acetaminophen/Codeine Phosphate (Tylenol W/Codeine #3) 1 tab PO Q6HR PRN PRN Reason: MODERATE PAIN Stop: 04/11/17 15:21 Last Admin: 02/14/17 02:08 Dose: 1 tab Acetaminophen/Hydrocodone Bitart (Dixon 5mg/325mg) 2 tab PO Q4H PRN PRN Reason: Severe Pain Stop: 04/11/17 15:21 Last Admin: 02/15/17 00:06 Dose: 2 tab Albuterol Sulfate (Albuterol 2.5mg/3ml Neb Ud) 2.5 mg HHN Q4HRT PRN PRN Reason: Wheezing Stop: 04/13/17 08:21 Last Admin: 02/14/17 15:54 Dose: 2.5 mg Ascorbic Acid (Vitamin C) 500 mg PO DAILY PATRICIA Stop: 04/12/17 08:59 Last Admin: 02/15/17 09:33 Dose: 500 mg Atorvastatin Calcium (Lipitor) 10 mg PO HS PATRICIA PRN Reason: Protocol Stop: 04/11/17 20:59 Last Admin: 02/14/17 20:49 Dose: 10 mg Furosemide (Lasix) 40 mg IVP BID PATRICIA Stop: 04/14/17 08:59 Last Admin: 02/15/17 09:33 Dose: 40 mg Piperacillin Sod/Tazobactam (Sod 4.5 gm/ Sodium Chloride) 100 mls @ 100 mls/hr IV Q8HR PATRICIA Stop: 04/11/17 13:59 Last Admin: 02/15/17 05:23 Dose: 100 mls/hr Norepinephrine Bitartrate 8 mg (/ Dextrose) 258 mls @ 77.4 mls/hr IV TITR PRN; Protocol; 40 MCG/MIN PRN Reason: BP MAINTENANCE (PER PROTOCOL) Stop: 04/12/17 07:46 Last Admin: 02/15/17 01:45 Dose: 5.16 mcg/min, 9.98 mls/hr Diltiazem HCl 125 mg/ Dextrose 125 mls @ 10 mls/hr IV TITR PATRICIA; 10 MG/HR PRN Reason: Protocol Stop: 04/15/17 04:29 Last Titration: 02/15/17 10:18 Dose: Infused Sodium Chloride (Nacl 0.45%) 1,000 mls @ 0 mls/hr IV .Q0M PATRICIA PRN Reason: KVO Stop: 04/15/17 10:13 Last Admin: 02/14/17 11:04 Dose: 10 mls/hr Lactobacillus Rhamnosus (Culturelle) 1 each PO DAILY PATRICIA Stop: 04/13/17 08:59 Last Admin: 02/15/17 09:33 Dose: 1 each Methylprednisolone Sodium Succinate (Solu-Medrol) 20 mg IVP Q8HR PATRICIA Stop: 04/14/17 12:59 Last Admin: 02/15/17 05:23 Dose: 20 mg Miscellaneous (Probiotic Screen) 1 ea MC PRN PRN PRN Reason: PROTOCOL Stop: 04/12/17 09:13 Ondansetron HCl (Zofran) 4 mg IV Q8H PRN PRN Reason: Nausea / Vomiting Stop: 04/11/17 08:23 Last Admin: 02/12/17 00:59 Dose: 4 mg Pantoprazole Sodium (Protonix) 40 mg PO DAILY [facility] Stop: 04/12/17 08:59 Last Admin: 02/15/17 09:32 Dose: 40 mg Kidney function better with a BUN/creatinine of 43/1.4 Chest x-ray basically the same but stable Continue gentle diuresis Off Levophed Monitor electrolytes and CBC along with chest x-ray Replace potassium and magnesium White count continues to improve @ 16.3 Liver enzymes slightly improved Echo revealed ejection fraction 15-20% with RVSP of 24.5, consider AICD, Bivent pacer On Zosyn Nutritional Asmnt/Malnutr-PDOC - Dietary Evaluation Malnutrition Findings (Please click <Entered> for more info): Nutritional Asmnt/Malnutrition Start: 02/14/17 13: 04 Text: Status: Complete Freq: Document 02/14/17 13:05 GSUN (Rec: 02/14/17 13:21 [id number]) Nutritional Asmnt/Malnutrition Patient General Information Nutritional Screening Moderate Risk Screening Pertinent Medical Hx/Surgical Hx Dx: Septic shock, hypotension, dehydration, metabolic acidosis improved, SU ?ATN, suspect aspiration PNA HTN, left knee prothesis, dyslipidemia, anemia Subjective Information 66 year old female, Citizen Of The [place] speaking. Pt was receiving breathing [facility]. Observed clear liquid tray at bedside. progress note 02/13: DC NG tube and start PO as tolerated. Spoke to RN STEFANIE Mayorga stated for breakfast pt tolerated 2 juices, declined broth, RN will remove mask and encourage lunch shortly. No significant wasting noted. 02/11 KUB: mild ielus. Current Diet Order/ Nutrition Support Clear liquid Pertinent Medications Vitamin C, Lipitor, Culturelle , Solu-Medrol, Zofran, Protonix, Nacl 0.45% Pertinent Labs 02/13: potassium 3L 02/14: BUN 30H, creatinine 1.8H (declining) Nutritional Hx/Data Height 1.68 m Height (Calculated Centimeters) 167.6 Current Weight (lbs) 75.75 kg Weight (Calculated Kilograms) 75.7 Weight (Calculated Grams) 53994.9 [place] Train Body Weight 130 Weight Status Overweight GI Symptoms Skin Integrity/Comment: Josias 14. Non-pitting edema bilateral feet. 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 Estimated Nutritional Goals Calories/Kcals/Kg IBW 130lb/59.1kg Kcals Calculated 1478-1773kcal (25-30kcal/kg) Protein Calculated 59g (1g/kg) Fluid: ml 1478-1773ml (1ml/kcal) Nutritional Problem 1. Problem Problem Impaired nutrient utilization related to Etiology renal dysfunction, per MD note SU ?ATN Signs/Symptoms: BUN 30H, creatinine 1.8H Intervention/Recommendation Comments 1. Recommend advance diet as tolerated to low sodium diet, to aid in renal function. No renal restriction due to hx of hypokalemia. Expected Outcomes/Goals Expected Outcomes/Goals 1. Pt to resume diet and meet at least 75% fo estimated nutritional needs.
--- NOTE | 2017-02-24 14:26 | Infectious Disease Prog Note ---
Infectious Disease Subjective - Review of Systems Service Date: 02/24/17 Subjective: There is no new change, no fever. No more nausea and vomiting. No diarhea. Patient WBC count improved to 16k Infectious Disease Objective - Results Result Diagrams: 02/24/17 05:30 02/24/17 05:30 Recent Labs: Laboratory Last Values WBC 16.3 Th/cmm (4.8-10.8) H 02/24/17 05:30 Corrected WBC (auto) 52.5 Th/cmm (4.8-10.8) H* 02/19/17 09:00 RBC 4.33 Mil/cmm (3.80-5.20) 02/24/17 05:30 Hgb 12.2 gm/dL (11.7-16.1) 02/24/17 05:30 Hct 36.3 % (35.0-45.0) D 02/24/17 05:30 MCV 83.9 fl (81-100) 02/24/17 05:30 MCH 28.1 pg (27.0-31.0) 02/24/17 05:30 MCHC Differential 33.5 pg (28.0-36.0) 02/24/17 05:30 RDW 18.4 % (11.5-20.0) 02/24/17 05:30 Plt Count 319 Th/cmm (150-400) D 02/24/17 05:30 MPV 9.1 fl 02/24/17 05:30 Neutrophils % 84.8 % (40.0-80.0) H 02/16/17 05:00 Band Neutrophils % 1 % (0-10) 02/24/17 05:30 Lymphocytes % 10.0 % (20.0-50.0) L 02/16/17 05:00 Monocytes % 2.7 % (2.0-10.0) 02/16/17 05:00 Eosinophils % 0.1 % (0.0-5.0) 02/16/17 05:00 Basophils % 2.4 % (0.0-2.0) H 02/16/17 05:00 Neutrophils (Manual) 79 % (40-80) 02/24/17 05:30 Lymphocytes 13 % (20-50) L 02/24/17 05:30 Monocytes 7 % (2-10) 02/24/17 05:30 Eosinophils 1 % (0-5) 02/15/17 05:00 Basophils 1 % (0-3) 02/09/17 20:27 Metamyelocytes 1 % (0-0) H 02/23/17 05:40 Nucleated RBCs 1.0 % (0-0) H 02/23/17 05:40 Platelet Estimate ADEQUATE (NORMAL) 02/24/17 05:30 Platelet Morphology NORMAL (NORMAL) 02/24/17 05:30 Anisocytosis 1+ 02/18/17 05:55 RBC Morph Micro Appear NORMAL (NORMAL) 02/24/17 05:30 Smear Path Review REVIEWED 02/22/17 06:15 Eos Smear Source URINE 02/14/17 17:40 Eos Smear Total Cells NONE SEEN (NONE SEEN) 02/14/17 17:40 PT 15.6 SECONDS (9.5-11.5) H 02/19/17 16:04 INR 1.47 (0.5-1.4) H 02/19/17 16:04 PTT (Actin FS) 29.9 SECONDS (26.0-38.0) 02/19/17 16:04 Specimen Source Arterial 02/14/17 16:00 Sample Site Right Radial 02/14/17 16:00 pH 7.40 (7.35-7.45) 02/14/17 16:00 pCO2 33.0 mmHg (35.0-45.0) L 02/14/17 16:00 pO2 103.0 mmHg (80.0-100.0) H 02/14/17 16:00 HCO3 22.1 mEq/L (20.0-26.0) 02/14/17 16:00 Base Excess -3.6 mEq/L (-3.0-3.0) L 02/14/17 16:00 O2 Saturation 98.0 % (92.0-100.0) 02/14/17 16:00 Robin Test Positive 02/14/17 16:00 Vent Rate 12 02/14/17 16:00 Inspired O2 40 02/14/17 16:00 Tidal Volume NA 02/14/17 16:00 PEEP 6 02/14/17 16:00 Pressure (ins/psv/peep) 6 02/14/17 16:00 Critical Value LZHANG 02/14/17 16:00 Sodium 137 mEq/L (136-145) 02/24/17 05:30 Potassium 3.7 mEq/L (3.5-5.1) 02/24/17 05:30 Chloride 105 mEq/L (98-107) 02/24/17 05:30 Carbon Dioxide 20.3 mEq/L (21.0-31.0) L 02/24/17 05:30 Anion Gap 15.4 (7.0-16.0) 02/24/17 05:30 BUN 43 mg/dL (7-25) H 02/24/17 05:30 Creatinine 1.4 mg/dL (0.6-1.2) H 02/24/17 05:30 Est GFR ( Amer) 48.5 ml/min (>90) 02/24/17 05:30 Est GFR (Non-Af Amer) 40.1 ml/min 02/24/17 05:30 BUN/Creatinine Ratio 30.7 02/24/17 05:30 Glucose 115 mg/dL (70-105) H 02/24/17 05:30 POC Glucose 170 MG/DL (70 - 105) H 02/12/17 09:42 Hemoglobin A1c % 5.1 % (4.0-6.0) 02/11/17 08:11 Whole Bld Lactic Acid 1.29 mmol/L (0.60-1.99) 02/16/17 05:00 Uric Acid 11.2 mg/dL (2.3-6.6) H 02/15/17 05:00 Calcium 9.2 mg/dL (8.6-10.3) 02/24/17 05:30 Phosphorus 3.8 mg/dL (2.5-5.0) 02/15/17 05:00 Magnesium 2.2 mg/dL (1.9-2.7) 02/19/17 05:40 Total Bilirubin 1.0 mg/dL (0.3-1.0) 02/24/17 05:30 AST 81 U/L (13-39) H 02/24/17 05:30 ALT 83 U/L (7-52) H 02/24/17 05:30 Alkaline Phosphatase 364 U/L (34-104) H 02/24/17 05:30 Creatine Kinase 67 U/L (30-223) 02/12/17 04:41 CK-MB (CK-2) 1.1 ng/mL (0.6-6.3) 02/09/17 20:27 Troponin I 0.01 ng/mL (0.01-0.05) 02/09/17 20:27 B-Natriuretic Peptide 783.0 pg/mL (5.0-100.0) H 02/24/17 05:30 Total Protein 6.5 gm/dL (6.0-8.3) 02/24/17 05:30 Albumin 3.2 gm/dL (3.7-5.3) L 02/24/17 05:30 Globulin 3.3 gm/dL 02/24/17 05:30 Albumin/Globulin Ratio 1.0 (1.0-1.8) 02/24/17 05:30 Amylase 23 U/L (29-103) L 02/13/17 05:03 Lipase 13 U/L (11-82) 02/13/17 05:03 Urine Source ZEE PORT 02/14/17 17:40 Urine Color YELLOW 02/14/17 17:40 Urine Clarity SLIGHT HAZY (CLEAR) 02/14/17 17:40 Urine pH 5.5 02/14/17 17:40 Ur Specific [place] 1.020 (1.005-1.030) 02/14/17 17:40 Urine Protein 100 mg/dL (NEGATIVE) H 02/14/17 17:40 Urine Glucose (UA) NEGATIVE mg/dL (NEGATIVE) 02/14/17 17:40 Urine Ketones NEGATIVE mg/dL (NEGATIVE) 02/14/17 17:40 Urine Blood MODERATE (NEGATIVE) H 02/14/17 17:40 Urine Nitrate NEGATIVE (NEGATIVE) 02/14/17 17:40 Urine Bilirubin NEGATIVE (NEGATIVE) 02/14/17 17:40 Urine Urobilinogen 0.2 E.U./dL (0.2 - 1.0) 02/14/17 17:40 Ur Leukocyte Esterase NEGATIVE (NEGATIVE) 02/14/17 17:40 Urine RBC 2-5 /hpf (0-5) 02/14/17 17:40 Urine WBC 2-5 /hpf (0-5) 02/14/17 17:40 Ur Epithelial Cells FEW /lpf (FEW) 02/14/17 17:40 Amorphous Sediment MANY URATES (NONE SEEN) 02/14/17 17:40 Urine Bacteria MODERATE /hpf (NONE SEEN) 02/14/17 17:40 Hyaline Casts 0-2 /lpf (0-2) H 02/09/17 21:05 Urine Yeast FEW /hpf (NONE SEEN) H 02/14/17 17:40 Ur Random Sodium 37 mmol/L 02/14/17 17:40 Urine Creatinine 32.9 mg/dl (Not Estab.) 02/14/17 21:55 Urine Microalbumin 332.1 ug/mL (Not Estab.) 02/14/17 21:55 Microalb/Creat Ratio 1009.4 mg/g creat (0.0-30.0) H 02/14/17 21:55 Stool Leukocyte NO WBC SEEN 02/12/17 00:05 Hepatitis A IgM Ab Negative (Negative) 02/19/17 06:00 Hep Bs Antigen Negative (Negative) 02/19/17 06:00 Hep B Core IgM Ab Negative (Negative) 02/19/17 06:00 Hepatitis C Antibody 0.1 s/co ratio (0.0-0.9) 02/19/17 06:00 - Physical Exam Vitals and I&O: Vital Signs Temp 97.2 F 02/24/17 04:00 Pulse 90 02/24/17 04:00 Resp 16 02/24/17 04:00 BP 114/75 02/24/17 09:08 Pulse Ox 98 02/24/17 04:00 Intake & Output 02/23/17 02/24/17 02/24/17 18:59 06:59 18:59 Intake Total 216.667 310 50 Balance 216.667 310 50 Weight (lbs) 78.471 kg Intake: Intake, IV Amount 216.667 250 50 Piperacillin Sodium/ 150 50 50 Tazobact 2.25 gm In Sodium Chloride 0.9% 50 ml @ 100 mls/hr IV Q6HR PATRICIA Rx#:[id number] metroNIDAZOLE 500mg/NS 66.667 200 100mL 500 mg In 100 ml @ 100 mls/hr IV Q8HR PATRICIA Rx #:[id number] Oral 60 Other: # Voids 3 # Bowel Movements 2 Stool Characteristics Liquid Liquid Active Medications: Current Medications Acetaminophen (Tylenol) 650 mg PO Q4HR PRN PRN Reason: TEMP >100 OR PAIN Stop: 04/11/17 15:21 Acetaminophen/Codeine Phosphate (Tylenol W/Codeine #3) 1 tab PO Q6HR PRN PRN Reason: MODERATE PAIN Stop: 04/11/17 15:21 Last Admin: 02/18/17 05:19 Dose: 1 tab Acetaminophen/Hydrocodone Bitart ([place] 5mg/325mg) 2 tab PO Q4H PRN PRN Reason: Severe Pain Stop: 04/11/17 15:21 Last Admin: 02/18/17 08:48 Dose: 2 tab Albuterol Sulfate (Albuterol 2.5mg/3ml Neb Ud) 2.5 mg HHN Q4HRT PRN PRN Reason: Wheezing Stop: 04/13/17 08:21 Last Admin: 02/17/17 19:36 Dose: 2.5 mg Ascorbic Acid (Vitamin C) 500 mg PO DAILY PATRICIA Stop: 04/12/17 08:59 Last Admin: 02/24/17 09:08 Dose: 500 mg Atorvastatin Calcium (Lipitor) 10 mg PO HS PATRICIA PRN Reason: Protocol Stop: 04/11/17 20:59 Last Admin: 02/23/17 21:08 Dose: 10 mg Furosemide (Lasix) 20 mg PO DAILY PATRICIA Stop: 04/26/17 08:59 Heparin Sodium (Porcine) (Heparin) 5,000 units SUBQ Q12HR PATRICIA Stop: 04/22/17 20:59 Last Admin: 02/24/17 12:15 Dose: 5,000 units Sodium Chloride (Nacl 0.45%) 1,000 mls @ 0 mls/hr IV .Q0M PATRICIA PRN Reason: KVO Stop: 04/15/17 10:13 Last Admin: 02/14/17 11:04 Dose: 10 mls/hr Metronidazole (Flagyl) 500 mg in 100 mls @ 100 mls/hr IV Q8HR [facility] [place] Stop: 04/19/17 21:59 Last Admin: 02/24/17 14:16 Dose: 100 mls/hr Piperacillin Sod/Tazobactam (Sod 2.25 gm/ Sodium Chloride) 50 mls @ 100 mls/hr IV Q6HR PATRICIA Stop: 04/21/17 17:59 Last Admin: 02/24/17 12:15 Dose: 100 mls/hr Megestrol Acetate (Megace) 40 mg PO DAILY PATRICIA PRN Reason: Protocol Stop: 04/24/17 12:59 Last Admin: 02/24/17 09:08 Dose: 40 mg Methylprednisolone Sodium Succinate (Solu-Medrol) 20 mg IVP Q8HR PATRICIA Stop: 04/14/17 12:59 Last Admin: 02/24/17 12:16 Dose: 20 mg Miscellaneous (Probiotic Screen) 1 ea PRN PRN PRN Reason: PROTOCOL Stop: 04/12/17 09:13 Miscellaneous (Clinical Monitoring) 1 ea MC DAILY PRN PRN Reason: RENAL Stop: 04/19/17 12:28 Ondansetron HCl (Zofran) 4 mg IV Q8H PRN PRN Reason: Nausea / Vomiting Stop: 04/11/17 08:23 Last Admin: 02/16/17 09:10 Dose: 4 mg Pantoprazole Sodium (Protonix) 40 mg PO DAILY PATRICIA Stop: 04/12/17 08:59 Last Admin: 02/24/17 09:08 Dose: 40 mg Potassium Chloride (Klor-Con) 20 meq PO DAILY PATRICIA Stop: 04/17/17 08:59 Last Admin: 02/24/17 09:08 Dose: 20 meq General: no acute distress, well developed, well nourished HEENT: atraumatic, normocephalic, PERRLA Neck: supple, no thyromegaly Cardiovascular: S1S2, regular Lungs: clear to auscultation bilaterally, clear to percussion Abdomen: soft, bowel sounds, no tender, no distended, no mass, no hepatomegaly, no splenomegaly Extremities: other (Left knee wound is ok. There is no swelling or effusion.), no cyanosis, no clubbing, no edema Neurological: awake, alert, oriented Skin: intact - Procedures Procedures: Procedures Procedure Code Date INSERT TUNNELED CV CATH [id number] 02/09/17 INSERTION OF INFUSION DEV INTO L SUBCLAV VEIN, PERC APPROACH 99R328C 02/09/17 Infectious Disease Assmt/Plan - Problem List Patient Problems: All Active Problems NAUSEA AND VOMITING WITH DEHYDRATION (Acute) sepsis (Acute) Sepsis affecting skin (Acute) L02.91 - Assessment Assessment: 1. Leukocytosis, without bandemia improving. ? steroid ? Sepsis ? CDAC. 2. Pneumonia. 3. H/o HTN. 4. H/o Anemia. 5. Metabolic acidosis, improved. 6. SU, ? ATN. worsening of the creatinine. 7. Small superficial leg wound at the distal end, no sign of infection. 8. CHF. 9. H/O Left TKR. no clinical sign of infection. h/o prosthesis infection, treated recently. 10. Suspect aspiration pneumonia. 11. elevated liver enzymes. 12. Suspect CDAC , as patient has very high WBC count. Recommendations: Antibiotic cheek, DC zosyn and continue flagyl for 7 days and Stool for C diff. wound care. Nutritional Asmnt/Malnutr-PDOC - Dietary Evaluation Malnutrition Findings (Please click <Entered> for more info): Nutritional Asmnt/Malnutrition Start: 02/14/17 13: 04 Text: Status: Complete Freq: Document 02/14/17 13:05 GSUN (Rec: 02/14/17 13:21 GSUN [id number]) Nutritional Asmnt/Malnutrition Patient General Information Nutritional Screening Moderate Risk Screening Pertinent Medical Hx/Surgical Hx Dx: Septic shock, hypotension, dehydration, metabolic acidosis improved, SU ?ATN, suspect aspiration PNA HTN, left knee prothesis, dyslipidemia, anemia Subjective Information 66 year old female, Vietnamese speaking. Pt was receiving breathing treatment during [facility] visit. Observed clear liquid tray at bedside. MD progress note 02/13: DC NG tube and start PO as tolerated. Spoke to STEFANIE Mayorga RN stated for breakfast pt tolerated 2 juices, declined broth, RN will remove mask and encourage lunch shortly. No significant wasting noted. 02/11 KUB: mild ielus. Current Diet Order/ Nutrition Support Clear liquid Pertinent Medications Vitamin C, Lipitor, Culturelle , Solu-Medrol, Zofran, Protonix, Nacl 0.45% Pertinent Labs 02/13: potassium 3L 02/14: BUN 30H, creatinine 1.8H (declining) Nutritional Hx/Data Height 1.68 m Height (Calculated Centimeters) 167.6 Current Weight (lbs) 75.75 kg Weight (Calculated Kilograms) 75.7 Weight (Calculated Grams) 73956.9 [place] Body Weight 130 Weight Status Overweight GI Symptoms Skin Integrity/Comment: Josias 14. Non-pitting edema bilateral feet. 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 Estimated Nutritional Goals Calories/Kcals/Kg IBW 130lb/59.1kg Kcals Calculated 1478-1773kcal (25-30kcal/kg) Protein Calculated 59g (1g/kg) Fluid: ml 1478-1773ml (1ml/kcal) Nutritional Problem 1. Problem Problem Impaired nutrient utilization related to Etiology renal dysfunction, per MD note SU ?ATN Signs/Symptoms: BUN 30H, creatinine 1.8H Intervention/Recommendation Comments 1. Recommend advance diet as tolerated to low sodium diet, to aid in renal function. No renal restriction due to hx of hypokalemia. Expected Outcomes/Goals Expected Outcomes/Goals 1. Pt to resume diet and meet at least 75% fo estimated nutritional needs.
[2017-02-24] MEDS: Albuterol Nebulizer 2.5mg/3mL HHN PRN (17:10)
[2017-02-24] MEDS: Budesonide 0.5 Mg/2 mL Ud HHN SCH (19:21)
[2017-02-24] MEDS: Albuterol/Ipratropium Neb 3 ML AERS HHN SCH ×2 (19:21→23:12)
[2017-02-24 20:26] LABS: pH 7.56 (7.35-7.45)
[2017-02-24 20:28] LABS: ABG SOURCE Arterial; HCO3 22.6 mEq/L (20.0-26.0)
[2017-02-24 20:29] LABS: ALLEN TEST P; FIO2 40; MECH RATE 12
[2017-02-24 20:30] LABS: BE(B) -3.1 mEq/L (-3.0-3.0)
[2017-02-24] MEDS: Atorvastatin Calcium 10 MG TAB PO SCH (20:30)
[2017-02-25] MEDS: Albuterol/Ipratropium Neb 3 ML AERS HHN SCH ×6 (03:12→22:38)
[2017-02-25] MEDS: metroNIDAZOLE 500mg/NS 100mL 500 MG/100 ML BAG IV SCH ×3 (04:37→21:52)
[2017-02-25 06:12] LABS: HEMATOCRIT 34.7 % (35.0-45.0); HEMOGLOBIN 12.1 gm/dL (11.7-16.1); MEAN CELL VOLUME 82.2 fl (81-100); MEAN CORPUSCULAR HEMOGLOBIN 28.7 pg (27.0-31.0); MEAN CORPUSCULAR HGB CONC 34.9 pg (28.0-36.0); MEAN PLATELET VOLUME 9.2 fl; PLATELET COUNT 298 Th/cmm (150-400); RED BLOOD COUNT 4.22 Mil/cmm (3.80-5.20)
[2017-02-25 06:36] LABS: WHITE BLOOD COUNT 21.3 Th/cmm (4.8-10.8)
[2017-02-25 06:44] LABS: ANION GAP 15.2 (7.0-16.0); BUN/CREATININE RATIO 32.3; CALCIUM SERUM 8.7 mg/dL (8.6-10.3); CARBON DIOXIDE 18.2 mEq/L (21.0-31.0); CREATININE - SERUM 1.3 mg/dL (0.6-1.2); POTASSIUM SERUM 3.4 mEq/L (3.5-5.1)
[2017-02-25 07:45] LABS: TOTAL CELLS COUNTED 100
[2017-02-25 07:47] LABS: BAND NEUTROPHILE 3 % (0-10); NEUTROPHILS 80 % (40-80); PLATELET ESTIMATE ADEQUATE (NORMAL)
[2017-02-25] MEDS: Pantoprazole 40 mg EC Tab PO SCH (09:43)
[2017-02-25] MEDS: Potassium Chloride 20 mEq ER Tab PO SCH (09:43)
[2017-02-25] MEDS: Multivitamin w/ Minerals Tab PO SCH (09:44)
[2017-02-25] MEDS: Budesonide 0.5 Mg/2 mL Ud HHN SCH ×2 (11:36→18:50)
--- NOTE | 2017-02-25 14:39 | General Progress Note ---
Subjective - Review of Systems Service Date: 02/25/17 Subjective: More awake, verbal, mild tachypnea, poor appetite Objective - Results Result Diagrams: 02/25/17 05:55 02/25/17 05:55 Recent Labs: Laboratory Last Values WBC 21.3 Th/cmm (4.8-10.8) H* D 02/25/17 05:55 Corrected WBC (auto) 52.5 Th/cmm (4.8-10.8) H* 02/19/17 09:00 RBC 4.22 Mil/cmm (3.80-5.20) 02/25/17 05:55 Hgb 12.1 gm/dL (11.7-16.1) 02/25/17 05:55 Hct 34.7 % (35.0-45.0) L 02/25/17 05:55 MCV 82.2 fl (81-100) 02/25/17 05:55 MCH 28.7 pg (27.0-31.0) 02/25/17 05:55 MCHC Differential 34.9 pg (28.0-36.0) 02/25/17 05:55 RDW 19.0 % (11.5-20.0) 02/25/17 05:55 Plt Count 298 Th/cmm (150-400) 02/25/17 05:55 MPV 9.2 fl 02/25/17 05:55 Neutrophils % 84.8 % (40.0-80.0) H 02/16/17 05:00 Band Neutrophils % 3 % (0-10) 02/25/17 05:55 Lymphocytes % 10.0 % (20.0-50.0) L 02/16/17 05:00 Monocytes % 2.7 % (2.0-10.0) 02/16/17 05:00 Eosinophils % 0.1 % (0.0-5.0) 02/16/17 05:00 Basophils % 2.4 % (0.0-2.0) H 02/16/17 05:00 Neutrophils (Manual) 80 % (40-80) 02/25/17 05:55 Lymphocytes 5 % (20-50) L 02/25/17 05:55 Monocytes 7 % (2-10) 02/25/17 05:55 Eosinophils 1 % (0-5) 02/15/17 05:00 Basophils 1 % (0-3) 02/09/17 20:27 Metamyelocytes 1 % (0-0) H 02/23/17 05:40 Nucleated RBCs 1.0 % (0-0) H 02/23/17 05:40 Atypical Lymphocytes 5 % 02/25/17 05:55 Platelet Estimate ADEQUATE (NORMAL) 02/25/17 05:55 Platelet Morphology NORMAL (NORMAL) 02/24/17 05:30 Anisocytosis 1+ 02/18/17 05:55 RBC Morph Micro Appear NORMAL (NORMAL) 02/24/17 05:30 Smear Path Review REVIEWED 02/22/17 06:15 Eos Smear Source URINE 02/14/17 17:40 Eos Smear Total Cells NONE SEEN (NONE SEEN) 02/14/17 17:40 PT 15.6 SECONDS (9.5-11.5) H 02/19/17 16:04 INR 1.47 (0.5-1.4) H 02/19/17 16:04 PTT (Actin FS) 29.9 SECONDS (26.0-38.0) 02/19/17 16:04 Specimen Source Arterial 02/24/17 19:30 Sample Site RB 02/24/17 19:30 pH 7.56 (7.35-7.45) H* 02/24/17 19:30 pCO2 19.0 mmHg (35.0-45.0) L* 02/24/17 19:30 pO2 143.0 mmHg (80.0-100.0) H 02/24/17 19:30 HCO3 22.6 mEq/L (20.0-26.0) 02/24/17 19:30 Base Excess -3.1 mEq/L (-3.0-3.0) L 02/24/17 19:30 O2 Saturation 99.0 % (92.0-100.0) 02/24/17 19:30 Robin Test P 02/24/17 19:30 Vent Rate 12 02/24/17 19:30 Inspired O2 40 02/24/17 19:30 Tidal Volume NA 02/24/17 19:30 PEEP NA 02/24/17 19:30 Pressure (ins/psv/peep) NA 02/24/17 19:30 Critical Value RPINEIRA 02/24/17 19:30 Sodium 139 mEq/L (136-145) 02/25/17 05:55 Potassium 3.4 mEq/L (3.5-5.1) L 02/25/17 05:55 Chloride 109 mEq/L (98-107) H 02/25/17 05:55 Carbon Dioxide 18.2 mEq/L (21.0-31.0) L 02/25/17 05:55 Anion Gap 15.2 (7.0-16.0) 02/25/17 05:55 BUN 42 mg/dL (7-25) H 02/25/17 05:55 Creatinine 1.3 mg/dL (0.6-1.2) H 02/25/17 05:55 Est GFR ( Amer) 52.9 ml/min (>90) 02/25/17 05:55 Est GFR (Non-Af Amer) 43.7 ml/min 02/25/17 05:55 BUN/Creatinine Ratio 32.3 02/25/17 05:55 Glucose 125 mg/dL (70-105) H 02/25/17 05:55 POC Glucose 170 MG/DL (70 - 105) H 02/12/17 09:42 Hemoglobin A1c % 5.1 % (4.0-6.0) 02/11/17 08:11 Whole Bld Lactic Acid 1.29 mmol/L (0.60-1.99) 02/16/17 05:00 Uric Acid 11.2 mg/dL (2.3-6.6) H 02/15/17 05:00 Calcium 8.7 mg/dL (8.6-10.3) 02/25/17 05:55 Phosphorus 3.8 mg/dL (2.5-5.0) 02/15/17 05:00 Magnesium 2.2 mg/dL (1.9-2.7) 02/19/17 05:40 Total Bilirubin 1.0 mg/dL (0.3-1.0) 02/24/17 05:30 AST 81 U/L (13-39) H 02/24/17 05:30 ALT 83 U/L (7-52) H 02/24/17 05:30 Alkaline Phosphatase 364 U/L (34-104) H 02/24/17 05:30 Creatine Kinase 67 U/L (30-223) 02/12/17 04:41 CK-MB (CK-2) 1.1 ng/mL (0.6-6.3) 02/09/17 20:27 Troponin I 0.01 ng/mL (0.01-0.05) 02/09/17 20:27 B-Natriuretic Peptide 783.0 pg/mL (5.0-100.0) H 02/24/17 05:30 Total Protein 6.5 gm/dL (6.0-8.3) 02/24/17 05:30 Albumin 3.2 gm/dL (3.7-5.3) L 02/24/17 05:30 Globulin 3.3 gm/dL 02/24/17 05:30 Albumin/Globulin Ratio 1.0 (1.0-1.8) 02/24/17 05:30 Amylase 23 U/L (29-103) L 02/13/17 05:03 Lipase 13 U/L (11-82) 02/13/17 05:03 Urine Source ZEE PORT 02/14/17 17:40 Urine Color YELLOW 02/14/17 17:40 Urine Clarity SLIGHT HAZY (CLEAR) 02/14/17 17:40 Urine pH 5.5 02/14/17 17:40 Ur Specific [place] 1.020 (1.005-1.030) 02/14/17 17:40 Urine Protein 100 mg/dL (NEGATIVE) H 02/14/17 17:40 Urine Glucose (UA) NEGATIVE mg/dL (NEGATIVE) 02/14/17 17:40 Urine Ketones NEGATIVE mg/dL (NEGATIVE) 02/14/17 17:40 Urine Blood MODERATE (NEGATIVE) H 02/14/17 17:40 Urine Nitrate NEGATIVE (NEGATIVE) 02/14/17 17:40 Urine Bilirubin NEGATIVE (NEGATIVE) 02/14/17 17:40 Urine Urobilinogen 0.2 E.U./dL (0.2 - 1.0) 02/14/17 17:40 Ur Leukocyte Esterase NEGATIVE (NEGATIVE) 02/14/17 17:40 Urine RBC 2-5 /hpf (0-5) 02/14/17 17:40 Urine WBC 2-5 /hpf (0-5) 02/14/17 17:40 Ur Epithelial Cells FEW /lpf (FEW) 02/14/17 17:40 Amorphous Sediment MANY URATES (NONE SEEN) 02/14/17 17:40 Urine Bacteria MODERATE /hpf (NONE SEEN) 02/14/17 17:40 Hyaline Casts 0-2 /lpf (0-2) H 02/09/17 21:05 Urine Yeast FEW /hpf (NONE SEEN) H 02/14/17 17:40 Ur Random Sodium 37 mmol/L 02/14/17 17:40 Urine Creatinine 32.9 mg/dl (Not Estab.) 02/14/17 21:55 Urine Microalbumin 332.1 ug/mL (Not Estab.) 02/14/17 21:55 Microalb/Creat Ratio 1009.4 mg/g creat (0.0-30.0) H 02/14/17 21:55 Stool Leukocyte NO WBC SEEN 02/12/17 00:05 Hepatitis A IgM Ab Negative (Negative) 02/19/17 06:00 Hep Bs Antigen Negative (Negative) 02/19/17 06:00 Hep B Core IgM Ab Negative (Negative) 02/19/17 06:00 Hepatitis C Antibody 0.1 s/co ratio (0.0-0.9) 02/19/17 06:00 - Physical Exam Vitals and I&O: Vital Signs Temp 97.4 F 02/25/17 12:19 Pulse 115 02/25/17 12:19 Resp 19 02/25/17 12:19 BP 103/72 02/25/17 12:19 Pulse Ox 95 02/25/17 12:19 Intake & Output 02/24/17 02/25/17 02/25/17 18:59 06:59 18:59 Intake Total 150 350 Balance 150 350 Weight (lbs) 78.018 kg Intake: Intake, IV Amount 150 200 Piperacillin Sodium/ 50 Tazobact 2.25 gm In Sodium Chloride 0.9% 50 ml @ 100 mls/hr IV Q6HR PATRICIA Rx#:[id number] metroNIDAZOLE 500mg/NS 100 200 100mL 500 mg In 100 ml @ 100 mls/hr IV Q8HR PATRICIA Rx #:[id number] Oral 150 Other: # Voids 3 # Bowel Movements 1 Stool Characteristics Liquid Liquid Liquid Active Medications: Current Medications Acetaminophen (Tylenol) 650 mg PO Q4HR PRN PRN Reason: TEMP >100 OR PAIN Stop: 04/11/17 15:21 Albuterol Sulfate (Albuterol 2.5mg/3ml Neb Ud) 2.5 mg HHN Q4HRT PRN PRN Reason: Wheezing Stop: 04/13/17 08:21 Last Admin: 02/24/17 17:10 Dose: 2.5 mg Albuterol/Ipratropium (Duoneb Neb) 3 ml HHN Q4HRT PATRICIA Stop: 04/25/17 18:59 Last Admin: 02/25/17 14:31 Dose: 3 ml Ascorbic Acid (Vitamin C) 500 mg PO DAILY PATRICIA Stop: 04/12/17 08:59 Last Admin: 02/25/17 09:44 Dose: 500 mg Atorvastatin Calcium (Lipitor) 10 mg PO HS PATRICIA PRN Reason: Protocol Stop: 04/11/17 20:59 Last Admin: 02/24/17 20:30 Dose: 10 mg Budesonide (Pulmicort) 0.5 mg HHN BIDRT PATRICIA Stop: 04/25/17 18:59 Last Admin: 02/25/17 11:36 Dose: 0.5 mg Furosemide (Lasix) 20 mg PO DAILY PATRICIA Stop: 04/26/17 08:59 Last Admin: 02/25/17 09:43 Dose: 20 mg Heparin Sodium (Porcine) (Heparin) 5,000 units SUBQ Q12HR PATRICIA Stop: 04/22/17 20:59 Last Admin: 02/25/17 09:44 Dose: 5,000 units Sodium Chloride (Nacl 0.45%) 1,000 mls @ 0 mls/hr IV .Q0M PATRICIA PRN Reason: KVO Stop: 04/15/17 10:13 Last Admin: 02/14/17 11:04 Dose: 10 mls/hr Metronidazole (Flagyl) 500 mg in 100 mls @ 100 mls/hr IV Q8HR PATRICIA Stop: 04/19/17 21:59 Last Admin: 02/25/17 12:35 Dose: 100 mls/hr Megestrol Acetate (Megace) 40 mg PO DAILY PATRICIA PRN Reason: Protocol Stop: 04/24/17 12:59 Last Admin: 02/25/17 09:44 Dose: 40 mg Miscellaneous (Probiotic Screen) 1 ea MC PRN PRN PRN Reason: PROTOCOL Stop: 04/12/17 09:13 Miscellaneous (Clinical Monitoring) 1 ea MC DAILY PRN PRN Reason: RENAL Stop: 04/19/17 12:28 Ondansetron HCl (Zofran) 4 mg IV Q8H PRN PRN Reason: Nausea / Vomiting Stop: 04/11/17 08:23 Last Admin: 02/16/17 09:10 Dose: 4 mg Pantoprazole Sodium (Protonix) 40 mg PO DAILY PATRICIA Stop: 04/12/17 08:59 Last Admin: 02/25/17 09:43 Dose: 40 mg Potassium Chloride (Klor-Con) 20 meq PO DAILY PATRICIA Stop: 04/17/17 08:59 Last Admin: 02/25/17 09:43 Dose: 20 meq General: Alert, Mild distress HEENT: Atraumatic, PERRLA, EOMI, Mucous membr. moist/pink Neck: Supple, +2 carotid pulse wo bruit Cardiovascular: Regular rate, Normal S1, Normal S2 Lungs: Other (few rhonchi) Abdomen: Bowel sounds, Soft Extremities: no Edema Neurological: Sensation intact Skin: no Rash Psych/Mental Status: Mood NL - Procedures Procedures: Procedures Procedure Code Date INSERT TUNNELED CV CATH [id number] 02/09/17 INSERTION OF INFUSION DEV INTO L SUBCLAV VEIN, PERC APPROACH 95N008A 02/09/17 Assessment/Plan - Problem List Patient Problems: All Active Problems NAUSEA AND VOMITING WITH DEHYDRATION (Acute) sepsis (Acute) Sepsis affecting skin (Acute) L02.91 - Assessment Assessment: Acute kidney injury secondary to acute tubular injury Fractional excretion of sodium is 1.1% suggestive of intrinsic renal failure Shock secondary to sepsis Distended gallbladder with normal acute cholecystitis Abdominal pain secondary to ileus Ileus secondary to sepsis Acute decompensation of systolic congestive heart failure(EJF 15-20%) Respiratory failure secondary to aspiration pneumonia/CHF Anemia of chronic kidney disease Dyslipidemia Status post Infected prosthesis left knee, status post I&D respiratory alkalosis Sepsis secondary to aspiration pneumonia Worsening liver enzymes due to sepsis, medications, hypotension Acalculous Cholecystitis - Plan Plan: Lab - Result Diagrams 02/15/17 05:00 02/15/17 05:00 Current Medications Acetaminophen (Tylenol) 650 mg PO Q4HR PRN PRN Reason: TEMP >100 OR PAIN Stop: 04/11/17 15:21 Acetaminophen/Codeine Phosphate (Tylenol W/Codeine #3) 1 tab PO Q6HR PRN PRN Reason: MODERATE PAIN Stop: 04/11/17 15:21 Last Admin: 02/14/17 02:08 Dose: 1 tab Acetaminophen/Hydrocodone Bitart ([place] 5mg/325mg) 2 tab PO Q4H PRN PRN Reason: Severe Pain Stop: 04/11/17 15:21 Last Admin: 02/15/17 00:06 Dose: 2 tab Albuterol Sulfate (Albuterol 2.5mg/3ml Neb Ud) 2.5 mg HHN Q4HRT PRN PRN Reason: Wheezing Stop: 04/13/17 08:21 Last Admin: 02/14/17 15:54 Dose: 2.5 mg Ascorbic Acid (Vitamin C) 500 mg PO DAILY PATRICIA Stop: 04/12/17 08:59 Last Admin: 02/15/17 09:33 Dose: 500 mg Atorvastatin Calcium (Lipitor) 10 mg PO HS PATRICIA PRN Reason: Protocol Stop: 04/11/17 20:59 Last Admin: 02/14/17 20:49 Dose: 10 mg Furosemide (Lasix) 40 mg IVP BID PATRICIA Stop: 04/14/17 08:59 Last Admin: 02/15/17 09:33 Dose: 40 mg Piperacillin Sod/Tazobactam (Sod 4.5 gm/ Sodium Chloride) 100 mls @ 100 mls/hr IV Q8HR PATRICIA Stop: 04/11/17 13:59 Last Admin: 02/15/17 05:23 Dose: 100 mls/hr Norepinephrine Bitartrate 8 mg (/ Dextrose) 258 mls @ 77.4 mls/hr IV TITR PRN; Protocol; 40 MCG/MIN PRN Reason: BP MAINTENANCE (PER PROTOCOL) Stop: 04/12/17 07:46 Last Admin: 02/15/17 01:45 Dose: 5.16 mcg/min, 9.98 mls/hr Diltiazem HCl 125 mg/ Dextrose 125 mls @ 10 mls/hr IV TITR PATRICIA; 10 MG/HR PRN Reason: Protocol Stop: 04/15/17 04:29 Last Titration: 02/15/17 10:18 Dose: Infused Sodium Chloride (Nacl 0.45%) 1,000 mls @ 0 mls/hr IV .Q0M PATRICIA PRN Reason: KVO Stop: 04/15/17 10:13 Last Admin: 02/14/17 11:04 Dose: 10 mls/hr Lactobacillus Rhamnosus (Culturelle) 1 each PO DAILY PATRICIA Stop: 04/13/17 08:59 Last Admin: 02/15/17 09:33 Dose: 1 each Methylprednisolone Sodium Succinate (Solu-Medrol) 20 mg IVP Q8HR PATRICIA Stop: 04/14/17 12:59 Last Admin: 02/15/17 05:23 Dose: 20 mg Miscellaneous (Probiotic Screen) 1 ea MC PRN PRN PRN Reason: PROTOCOL Stop: 04/12/17 09:13 Ondansetron HCl (Zofran) 4 mg IV Q8H PRN PRN Reason: Nausea / Vomiting Stop: 04/11/17 08:23 Last Admin: 02/12/17 00:59 Dose: 4 mg Pantoprazole Sodium (Protonix) 40 mg PO DAILY COUNTS INCLUDE 234 BEDS AT [facility] Stop: 04/12/17 08:59 Last Admin: 02/15/17 09:32 Dose: 40 mg Kidney function better with a BUN/creatinine of 42/1.3, off dialysis Chest x-ray basically the same but stable Continue gentle diuresis Off Levophed Monitor electrolytes and CBC along with chest x-ray Replace potassium and magnesium White count increased to 21.3 Liver enzymes slightly improved Echo revealed ejection fraction 15-20% with RVSP of 24.5, consider AICD, Bivent pacer On Zosyn Nutritional Asmnt/Malnutr-PDOC - Dietary Evaluation Malnutrition Findings (Please click <Entered> for more info): Nutritional Asmnt/Malnutrition Start: 02/14/17 13: 04 Text: Status: Complete Freq: Document 02/14/17 13:05 GSUN (Rec: 02/14/17 13:21 GSUN [id number]) Nutritional Asmnt/Malnutrition Patient General Information Nutritional Screening Moderate Risk Screening Pertinent Medical Hx/Surgical Hx Dx: Septic shock, hypotension, dehydration, metabolic acidosis improved, SU ?ATN, suspect aspiration PNA HTN, left knee prothesis, dyslipidemia, anemia Subjective Information 66 year old female, Citizen Of [place] speaking. Pt was receiving breathing treatment during [facility]. Observed clear liquid tray at bedside. progress note 02/13: DC NG tube and start PO as tolerated. Spoke to STEFANIE Mayorga RN stated for breakfast pt tolerated 2 juices, declined broth, RN will remove mask and encourage lunch shortly. No significant wasting noted. 02/11 KUB: mild ielus. Current Diet Order/ Nutrition Support Clear liquid Pertinent Medications Vitamin C, Lipitor, Culturelle , Solu-Medrol, Zofran, Protonix, Nacl 0.45% Pertinent Labs 02/13: potassium 3L 02/14: BUN 30H, creatinine 1.8H (declining) Nutritional Hx/Data Height 1.68 m Height (Calculated Centimeters) 167.6 Current Weight (lbs) 75.75 kg Weight (Calculated Kilograms) 75.7 Weight (Calculated Grams) 24999.9 [place] Body Weight 130 Weight Status Overweight GI Symptoms Skin Integrity/Comment: Josias 14. Non-pitting edema bilateral feet. 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 Estimated Nutritional Goals Calories/Kcals/Kg IBW 130lb/59.1kg Kcals Calculated 1478-1773kcal (25-30kcal/kg) Protein Calculated 59g (1g/kg) Fluid: ml 1478-1773ml (1ml/kcal) Nutritional Problem 1. Problem Problem Impaired nutrient utilization related to Etiology renal dysfunction, per MD note SU ?ATN Signs/Symptoms: BUN 30H, creatinine 1.8H Intervention/Recommendation Comments 1. Recommend advance diet as tolerated to low sodium diet, to aid in renal function. No renal restriction due to hx of hypokalemia. Expected Outcomes/Goals Expected Outcomes/Goals 1. Pt to resume diet and meet at least 75% fo estimated nutritional needs.
--- NOTE | 2017-02-25 14:59 | General Progress Note ---
Subjective - Review of Systems Service Date: 02/25/17 Objective - Results Result Diagrams: 02/25/17 05:55 02/25/17 05:55 Recent Labs: Laboratory Last Values WBC 21.3 Th/cmm (4.8-10.8) H* D 02/25/17 05:55 Corrected WBC (auto) 52.5 Th/cmm (4.8-10.8) H* 02/19/17 09:00 RBC 4.22 Mil/cmm (3.80-5.20) 02/25/17 05:55 Hgb 12.1 gm/dL (11.7-16.1) 02/25/17 05:55 Hct 34.7 % (35.0-45.0) L 02/25/17 05:55 MCV 82.2 fl (81-100) 02/25/17 05:55 MCH 28.7 pg (27.0-31.0) 02/25/17 05:55 MCHC Differential 34.9 pg (28.0-36.0) 02/25/17 05:55 RDW 19.0 % (11.5-20.0) 02/25/17 05:55 Plt Count 298 Th/cmm (150-400) 02/25/17 05:55 MPV 9.2 fl 02/25/17 05:55 Neutrophils % 84.8 % (40.0-80.0) H 02/16/17 05:00 Band Neutrophils % 3 % (0-10) 02/25/17 05:55 Lymphocytes % 10.0 % (20.0-50.0) L 02/16/17 05:00 Monocytes % 2.7 % (2.0-10.0) 02/16/17 05:00 Eosinophils % 0.1 % (0.0-5.0) 02/16/17 05:00 Basophils % 2.4 % (0.0-2.0) H 02/16/17 05:00 Neutrophils (Manual) 80 % (40-80) 02/25/17 05:55 Lymphocytes 5 % (20-50) L 02/25/17 05:55 Monocytes 7 % (2-10) 02/25/17 05:55 Eosinophils 1 % (0-5) 02/15/17 05:00 Basophils 1 % (0-3) 02/09/17 20:27 Metamyelocytes 1 % (0-0) H 02/23/17 05:40 Nucleated RBCs 1.0 % (0-0) H 02/23/17 05:40 Atypical Lymphocytes 5 % 02/25/17 05:55 Platelet Estimate ADEQUATE (NORMAL) 02/25/17 05:55 Platelet Morphology NORMAL (NORMAL) 02/24/17 05:30 Anisocytosis 1+ 02/18/17 05:55 RBC Morph Micro Appear NORMAL (NORMAL) 02/24/17 05:30 Smear Path Review REVIEWED 02/22/17 06:15 Eos Smear Source URINE 02/14/17 17:40 Eos Smear Total Cells NONE SEEN (NONE SEEN) 02/14/17 17:40 PT 15.6 SECONDS (9.5-11.5) H 02/19/17 16:04 INR 1.47 (0.5-1.4) H 02/19/17 16:04 PTT (Actin FS) 29.9 SECONDS (26.0-38.0) 02/19/17 16:04 Specimen Source Arterial 02/24/17 19:30 Sample Site RB 02/24/17 19:30 pH 7.56 (7.35-7.45) H* 02/24/17 19:30 pCO2 19.0 mmHg (35.0-45.0) L* 02/24/17 19:30 pO2 143.0 mmHg (80.0-100.0) H 02/24/17 19:30 HCO3 22.6 mEq/L (20.0-26.0) 02/24/17 19:30 Base Excess -3.1 mEq/L (-3.0-3.0) L 02/24/17 19:30 O2 Saturation 99.0 % (92.0-100.0) 02/24/17 19:30 Robin Test P 02/24/17 19:30 Vent Rate 12 02/24/17 19:30 Inspired O2 40 02/24/17 19:30 Tidal Volume NA 02/24/17 19:30 PEEP NA 02/24/17 19:30 Pressure (ins/psv/peep) NA 02/24/17 19:30 Critical Value RPINEIRA 02/24/17 19:30 Sodium 139 mEq/L (136-145) 02/25/17 05:55 Potassium 3.4 mEq/L (3.5-5.1) L 02/25/17 05:55 Chloride 109 mEq/L (98-107) H 02/25/17 05:55 Carbon Dioxide 18.2 mEq/L (21.0-31.0) L 02/25/17 05:55 Anion Gap 15.2 (7.0-16.0) 02/25/17 05:55 BUN 42 mg/dL (7-25) H 02/25/17 05:55 Creatinine 1.3 mg/dL (0.6-1.2) H 02/25/17 05:55 Est GFR ( Amer) 52.9 ml/min (>90) 02/25/17 05:55 Est GFR (Non-Af Amer) 43.7 ml/min 02/25/17 05:55 BUN/Creatinine Ratio 32.3 02/25/17 05:55 Glucose 125 mg/dL (70-105) H 02/25/17 05:55 POC Glucose 170 MG/DL (70 - 105) H 02/12/17 09:42 Hemoglobin A1c % 5.1 % (4.0-6.0) 02/11/17 08:11 Whole Bld Lactic Acid 1.29 mmol/L (0.60-1.99) 02/16/17 05:00 Uric Acid 11.2 mg/dL (2.3-6.6) H 02/15/17 05:00 Calcium 8.7 mg/dL (8.6-10.3) 02/25/17 05:55 Phosphorus 3.8 mg/dL (2.5-5.0) 02/15/17 05:00 Magnesium 2.2 mg/dL (1.9-2.7) 02/19/17 05:40 Total Bilirubin 1.0 mg/dL (0.3-1.0) 02/24/17 05:30 AST 81 U/L (13-39) H 02/24/17 05:30 ALT 83 U/L (7-52) H 02/24/17 05:30 Alkaline Phosphatase 364 U/L (34-104) H 02/24/17 05:30 Creatine Kinase 67 U/L (30-223) 02/12/17 04:41 CK-MB (CK-2) 1.1 ng/mL (0.6-6.3) 02/09/17 20:27 Troponin I 0.01 ng/mL (0.01-0.05) 02/09/17 20:27 B-Natriuretic Peptide 783.0 pg/mL (5.0-100.0) H 02/24/17 05:30 Total Protein 6.5 gm/dL (6.0-8.3) 02/24/17 05:30 Albumin 3.2 gm/dL (3.7-5.3) L 02/24/17 05:30 Globulin 3.3 gm/dL 02/24/17 05:30 Albumin/Globulin Ratio 1.0 (1.0-1.8) 02/24/17 05:30 Amylase 23 U/L (29-103) L 02/13/17 05:03 Lipase 13 U/L (11-82) 02/13/17 05:03 Urine Source ZEE PORT 02/14/17 17:40 Urine Color YELLOW 02/14/17 17:40 Urine Clarity SLIGHT HAZY (CLEAR) 02/14/17 17:40 Urine pH 5.5 02/14/17 17:40 Ur Specific [place] 1.020 (1.005-1.030) 02/14/17 17:40 Urine Protein 100 mg/dL (NEGATIVE) H 02/14/17 17:40 Urine Glucose (UA) NEGATIVE mg/dL (NEGATIVE) 02/14/17 17:40 Urine Ketones NEGATIVE mg/dL (NEGATIVE) 02/14/17 17:40 Urine Blood MODERATE (NEGATIVE) H 02/14/17 17:40 Urine Nitrate NEGATIVE (NEGATIVE) 02/14/17 17:40 Urine Bilirubin NEGATIVE (NEGATIVE) 02/14/17 17:40 Urine Urobilinogen 0.2 E.U./dL (0.2 - 1.0) 02/14/17 17:40 Ur Leukocyte Esterase NEGATIVE (NEGATIVE) 02/14/17 17:40 Urine RBC 2-5 /hpf (0-5) 02/14/17 17:40 Urine WBC 2-5 /hpf (0-5) 02/14/17 17:40 Ur Epithelial Cells FEW /lpf (FEW) 02/14/17 17:40 Amorphous Sediment MANY URATES (NONE SEEN) 02/14/17 17:40 Urine Bacteria MODERATE /hpf (NONE SEEN) 02/14/17 17:40 Hyaline Casts 0-2 /lpf (0-2) H 02/09/17 21:05 Urine Yeast FEW /hpf (NONE SEEN) H 02/14/17 17:40 Ur Random Sodium 37 mmol/L 02/14/17 17:40 Urine Creatinine 32.9 mg/dl (Not Estab.) 02/14/17 21:55 Urine Microalbumin 332.1 ug/mL (Not Estab.) 02/14/17 21:55 Microalb/Creat Ratio 1009.4 mg/g creat (0.0-30.0) H 02/14/17 21:55 Stool Leukocyte NO WBC SEEN 02/12/17 00:05 Hepatitis A IgM Ab Negative (Negative) 02/19/17 06:00 Hep Bs Antigen Negative (Negative) 02/19/17 06:00 Hep B Core IgM Ab Negative (Negative) 02/19/17 06:00 Hepatitis C Antibody 0.1 s/co ratio (0.0-0.9) 02/19/17 06:00 - Physical Exam Vitals and I&O: Vital Signs Temp 97.4 F 02/25/17 12:19 Pulse 115 02/25/17 12:19 Resp 19 02/25/17 12:19 BP 103/72 02/25/17 12:19 Pulse Ox 95 02/25/17 12:19 Intake & Output 02/24/17 02/25/17 02/25/17 18:59 06:59 18:59 Intake Total 150 350 Balance 150 350 Weight (lbs) 78.018 kg Intake: Intake, IV Amount 150 200 Piperacillin Sodium/ 50 Tazobact 2.25 gm In Sodium Chloride 0.9% 50 ml @ 100 mls/hr IV Q6HR PATRICIA Rx#:[id number] metroNIDAZOLE 500mg/NS 100 200 100mL 500 mg In 100 ml @ 100 mls/hr IV Q8HR PATRICIA Rx #:[id number] Oral 150 Other: # Voids 3 # Bowel Movements 1 Stool Characteristics Liquid Liquid Liquid Active Medications: Current Medications Acetaminophen (Tylenol) 650 mg PO Q4HR PRN PRN Reason: TEMP >100 OR PAIN Stop: 04/11/17 15:21 Albuterol Sulfate (Albuterol 2.5mg/3ml Neb Ud) 2.5 mg HHN Q4HRT PRN PRN Reason: Wheezing Stop: 04/13/17 08:21 Last Admin: 02/24/17 17:10 Dose: 2.5 mg Albuterol/Ipratropium (Duoneb Neb) 3 ml HHN Q4HRT PATRICIA Stop: 04/25/17 18:59 Last Admin: 02/25/17 14:31 Dose: 3 ml Ascorbic Acid (Vitamin C) 500 mg PO DAILY PATRICIA Stop: 04/12/17 08:59 Last Admin: 02/25/17 09:44 Dose: 500 mg Atorvastatin Calcium (Lipitor) 10 mg PO HS PATRICIA PRN Reason: Protocol Stop: 04/11/17 20:59 Last Admin: 02/24/17 20:30 Dose: 10 mg Budesonide (Pulmicort) 0.5 mg HHN BIDRT PATRICIA Stop: 04/25/17 18:59 Last Admin: 02/25/17 11:36 Dose: 0.5 mg Furosemide (Lasix) 20 mg PO DAILY PATRICIA Stop: 04/26/17 08:59 Last Admin: 02/25/17 09:43 Dose: 20 mg Heparin Sodium (Porcine) (Heparin) 5,000 units SUBQ Q12HR PATRICIA Stop: 04/22/17 20:59 Last Admin: 02/25/17 09:44 Dose: 5,000 units Sodium Chloride (Nacl 0.45%) 1,000 mls @ 0 mls/hr IV .Q0M PATRICIA PRN Reason: KVO Stop: 04/15/17 10:13 Last Admin: 02/14/17 11:04 Dose: 10 mls/hr Metronidazole (Flagyl) 500 mg in 100 mls @ 100 mls/hr IV Q8HR PATRICIA Stop: 04/19/17 21:59 Last Admin: 02/25/17 12:35 Dose: 100 mls/hr Megestrol Acetate (Megace) 40 mg PO DAILY PATRICIA PRN Reason: Protocol Stop: 04/24/17 12:59 Last Admin: 02/25/17 09:44 Dose: 40 mg Miscellaneous (Probiotic Screen) 1 ea MC PRN PRN PRN Reason: PROTOCOL Stop: 04/12/17 09:13 Miscellaneous (Clinical Monitoring) 1 ea MC DAILY PRN PRN Reason: RENAL Stop: 04/19/17 12:28 Ondansetron HCl (Zofran) 4 mg IV Q8H PRN PRN Reason: Nausea / Vomiting Stop: 04/11/17 08:23 Last Admin: 02/16/17 09:10 Dose: 4 mg Pantoprazole Sodium (Protonix) 40 mg PO DAILY PATRICIA Stop: 04/12/17 08:59 Last Admin: 02/25/17 09:43 Dose: 40 mg Potassium Chloride (Klor-Con) 20 meq PO DAILY PATRICIA Stop: 04/17/17 08:59 Last Admin: 02/25/17 09:43 Dose: 20 meq Sodium Bicarbonate (Sodium Bicarbonate) 650 mg PO BID PATRICIA PRN Reason: Protocol Stop: 04/26/17 16:59 General: Alert, Mild distress HEENT: Atraumatic, PERRLA, EOMI, Mucous membr. moist/pink Neck: Supple, +2 carotid pulse wo bruit Cardiovascular: Regular rate, Normal S1, Normal S2 Lungs: Other (few rhonchi) Abdomen: Bowel sounds, Soft Extremities: no Edema Neurological: Sensation intact Skin: no Rash Psych/Mental Status: Mood NL - Procedures Procedures: Procedures Procedure Code Date INSERT TUNNELED CV CATH [id number] 02/09/17 INSERTION OF INFUSION DEV INTO L SUBCLAV VEIN, PERC APPROACH 44O912E 02/09/17 Assessment/Plan - Problem List Patient Problems: All Active Problems NAUSEA AND VOMITING WITH DEHYDRATION (Acute) sepsis (Acute) Sepsis affecting skin (Acute) L02.91 - Assessment Assessment: * Reactive leukocytosis improving.fluctuating on antibiotics * 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 DVT proph Nutritional Asmnt/Malnutr-PDOC - Dietary Evaluation Malnutrition Findings (Please click <Entered> for more info): Nutritional Asmnt/Malnutrition Start: 02/14/17 13: 04 Text: Status: Complete Freq: Document 02/14/17 13:05 GSUN (Rec: 02/14/17 13:21 GSUN [id number]) Nutritional Asmnt/Malnutrition Patient General Information Nutritional Screening Moderate Risk Screening Pertinent Medical Hx/Surgical Hx Dx: Septic shock, hypotension, dehydration, metabolic acidosis improved, SU ?ATN, suspect aspiration PNA HTN, left knee prothesis, dyslipidemia, anemia Subjective Information 66 year old female, German speaking. Pt was receiving breathing treatment [facility]. Observed clear liquid tray at bedside. progress note 02/13: DC NG tube and start PO as tolerated. Spoke to RN STEFANIE Mayorga stated for breakfast pt tolerated 2 juices, declined broth, RN will remove mask and encourage lunch shortly. No significant wasting noted. 02/11 KUB: mild ielus. Current Diet Order/ Nutrition Support Clear liquid Pertinent Medications Vitamin C, Lipitor, Culturelle , Solu-Medrol, Zofran, Protonix, Nacl 0.45% Pertinent Labs 02/13: potassium 3L 02/14: BUN 30H, creatinine 1.8H (declining) Nutritional Hx/Data Height 1.68 m Height (Calculated Centimeters) 167.6 Current Weight (lbs) 75.75 kg Weight (Calculated Kilograms) 75.7 Weight (Calculated Grams) 03992.9 [place] Body Weight 130 Weight Status Overweight GI Symptoms Skin Integrity/Comment: Josias 14. Non-pitting edema bilateral feet. 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 Estimated Nutritional Goals Calories/Kcals/Kg IBW 130lb/59.1kg Kcals Calculated 1478-1773kcal (25-30kcal/kg) Protein Calculated 59g (1g/kg) Fluid: ml 1478-1773ml (1ml/kcal) Nutritional Problem 1. Problem Problem Impaired nutrient utilization related to Etiology renal dysfunction, per MD note SU ?ATN Signs/Symptoms: BUN 30H, creatinine 1.8H Intervention/Recommendation Comments 1. Recommend advance diet as tolerated to low sodium diet, to aid in renal function. No renal restriction due to hx of hypokalemia. Expected Outcomes/Goals Expected Outcomes/Goals 1. Pt to resume diet and meet at least 75% fo estimated nutritional needs.
--- NOTE | 2017-02-25 15:04 | General Progress Note ---
Subjective - Review of Systems Events since last encounter: patient has poor appetite , more awake Subjective: pt is awake denies any pain pt states she in comfortable Objective - Results Result Diagrams: 02/25/17 05:55 02/25/17 05:55 Recent Labs: Laboratory Last Values WBC 21.3 Th/cmm (4.8-10.8) H* D 02/25/17 05:55 Corrected WBC (auto) 52.5 Th/cmm (4.8-10.8) H* 02/19/17 09:00 RBC 4.22 Mil/cmm (3.80-5.20) 02/25/17 05:55 Hgb 12.1 gm/dL (11.7-16.1) 02/25/17 05:55 Hct 34.7 % (35.0-45.0) L 02/25/17 05:55 MCV 82.2 fl (81-100) 02/25/17 05:55 MCH 28.7 pg (27.0-31.0) 02/25/17 05:55 MCHC Differential 34.9 pg (28.0-36.0) 02/25/17 05:55 RDW 19.0 % (11.5-20.0) 02/25/17 05:55 Plt Count 298 Th/cmm (150-400) 02/25/17 05:55 MPV 9.2 fl 02/25/17 05:55 Neutrophils % 84.8 % (40.0-80.0) H 02/16/17 05:00 Band Neutrophils % 3 % (0-10) 02/25/17 05:55 Lymphocytes % 10.0 % (20.0-50.0) L 02/16/17 05:00 Monocytes % 2.7 % (2.0-10.0) 02/16/17 05:00 Eosinophils % 0.1 % (0.0-5.0) 02/16/17 05:00 Basophils % 2.4 % (0.0-2.0) H 02/16/17 05:00 Neutrophils (Manual) 80 % (40-80) 02/25/17 05:55 Lymphocytes 5 % (20-50) L 02/25/17 05:55 Monocytes 7 % (2-10) 02/25/17 05:55 Eosinophils 1 % (0-5) 02/15/17 05:00 Basophils 1 % (0-3) 02/09/17 20:27 Metamyelocytes 1 % (0-0) H 02/23/17 05:40 Nucleated RBCs 1.0 % (0-0) H 02/23/17 05:40 Atypical Lymphocytes 5 % 02/25/17 05:55 Platelet Estimate ADEQUATE (NORMAL) 02/25/17 05:55 Platelet Morphology NORMAL (NORMAL) 02/24/17 05:30 Anisocytosis 1+ 02/18/17 05:55 RBC Morph Micro Appear NORMAL (NORMAL) 02/24/17 05:30 Smear Path Review REVIEWED 02/22/17 06:15 Eos Smear Source URINE 02/14/17 17:40 Eos Smear Total Cells NONE SEEN (NONE SEEN) 02/14/17 17:40 PT 15.6 SECONDS (9.5-11.5) H 02/19/17 16:04 INR 1.47 (0.5-1.4) H 02/19/17 16:04 PTT (Actin FS) 29.9 SECONDS (26.0-38.0) 02/19/17 16:04 Specimen Source Arterial 02/24/17 19:30 Sample Site RB 02/24/17 19:30 pH 7.56 (7.35-7.45) H* 02/24/17 19:30 pCO2 19.0 mmHg (35.0-45.0) L* 02/24/17 19:30 pO2 143.0 mmHg (80.0-100.0) H 02/24/17 19:30 HCO3 22.6 mEq/L (20.0-26.0) 02/24/17 19:30 Base Excess -3.1 mEq/L (-3.0-3.0) L 02/24/17 19:30 O2 Saturation 99.0 % (92.0-100.0) 02/24/17 19:30 Robin Test P 02/24/17 19:30 Vent Rate 12 02/24/17 19:30 Inspired O2 40 02/24/17 19:30 Tidal Volume NA 02/24/17 19:30 PEEP NA 02/24/17 19:30 Pressure (ins/psv/peep) NA 02/24/17 19:30 Critical Value RPINEIRA 02/24/17 19:30 Sodium 139 mEq/L (136-145) 02/25/17 05:55 Potassium 3.4 mEq/L (3.5-5.1) L 02/25/17 05:55 Chloride 109 mEq/L (98-107) H 02/25/17 05:55 Carbon Dioxide 18.2 mEq/L (21.0-31.0) L 02/25/17 05:55 Anion Gap 15.2 (7.0-16.0) 02/25/17 05:55 BUN 42 mg/dL (7-25) H 02/25/17 05:55 Creatinine 1.3 mg/dL (0.6-1.2) H 02/25/17 05:55 Est GFR ( Amer) 52.9 ml/min (>90) 02/25/17 05:55 Est GFR (Non-Af Amer) 43.7 ml/min 02/25/17 05:55 BUN/Creatinine Ratio 32.3 02/25/17 05:55 Glucose 125 mg/dL (70-105) H 02/25/17 05:55 POC Glucose 170 MG/DL (70 - 105) H 02/12/17 09:42 Hemoglobin A1c % 5.1 % (4.0-6.0) 02/11/17 08:11 Whole Bld Lactic Acid 1.29 mmol/L (0.60-1.99) 02/16/17 05:00 Uric Acid 11.2 mg/dL (2.3-6.6) H 02/15/17 05:00 Calcium 8.7 mg/dL (8.6-10.3) 02/25/17 05:55 Phosphorus 3.8 mg/dL (2.5-5.0) 02/15/17 05:00 Magnesium 2.2 mg/dL (1.9-2.7) 02/19/17 05:40 Total Bilirubin 1.0 mg/dL (0.3-1.0) 02/24/17 05:30 AST 81 U/L (13-39) H 02/24/17 05:30 ALT 83 U/L (7-52) H 02/24/17 05:30 Alkaline Phosphatase 364 U/L (34-104) H 02/24/17 05:30 Creatine Kinase 67 U/L (30-223) 02/12/17 04:41 CK-MB (CK-2) 1.1 ng/mL (0.6-6.3) 02/09/17 20:27 Troponin I 0.01 ng/mL (0.01-0.05) 02/09/17 20:27 B-Natriuretic Peptide 783.0 pg/mL (5.0-100.0) H 02/24/17 05:30 Total Protein 6.5 gm/dL (6.0-8.3) 02/24/17 05:30 Albumin 3.2 gm/dL (3.7-5.3) L 02/24/17 05:30 Globulin 3.3 gm/dL 02/24/17 05:30 Albumin/Globulin Ratio 1.0 (1.0-1.8) 02/24/17 05:30 Amylase 23 U/L (29-103) L 02/13/17 05:03 Lipase 13 U/L (11-82) 02/13/17 05:03 Urine Source [place] 02/14/17 17:40 Urine Color YELLOW 02/14/17 17:40 Urine Clarity SLIGHT HAZY (CLEAR) 02/14/17 17:40 Urine pH 5.5 02/14/17 17:40 Ur Specific [place] 1.020 (1.005-1.030) 02/14/17 17:40 Urine Protein 100 mg/dL (NEGATIVE) H 02/14/17 17:40 Urine Glucose (UA) NEGATIVE mg/dL (NEGATIVE) 02/14/17 17:40 Urine Ketones NEGATIVE mg/dL (NEGATIVE) 02/14/17 17:40 Urine Blood MODERATE (NEGATIVE) H 02/14/17 17:40 Urine Nitrate NEGATIVE (NEGATIVE) 02/14/17 17:40 Urine Bilirubin NEGATIVE (NEGATIVE) 02/14/17 17:40 Urine Urobilinogen 0.2 E.U./dL (0.2 - 1.0) 02/14/17 17:40 Ur Leukocyte Esterase NEGATIVE (NEGATIVE) 02/14/17 17:40 Urine RBC 2-5 /hpf (0-5) 02/14/17 17:40 Urine WBC 2-5 /hpf (0-5) 02/14/17 17:40 Ur Epithelial Cells FEW /lpf (FEW) 02/14/17 17:40 Amorphous Sediment MANY URATES (NONE SEEN) 02/14/17 17:40 Urine Bacteria MODERATE /hpf (NONE SEEN) 02/14/17 17:40 Hyaline Casts 0-2 /lpf (0-2) H 02/09/17 21:05 Urine Yeast FEW /hpf (NONE SEEN) H 02/14/17 17:40 Ur Random Sodium 37 mmol/L 02/14/17 17:40 Urine Creatinine 32.9 mg/dl (Not Estab.) 02/14/17 21:55 Urine Microalbumin 332.1 ug/mL (Not Estab.) 02/14/17 21:55 Microalb/Creat Ratio 1009.4 mg/g creat (0.0-30.0) H 02/14/17 21:55 Stool Leukocyte NO WBC SEEN 02/12/17 00:05 Hepatitis A IgM Ab Negative (Negative) 02/19/17 06:00 Hep Bs Antigen Negative (Negative) 02/19/17 06:00 Hep B Core IgM Ab Negative (Negative) 02/19/17 06:00 Hepatitis C Antibody 0.1 s/co ratio (0.0-0.9) 02/19/17 06:00 - Physical Exam Vitals and I&O: Vital Signs Temp 97.4 F 02/25/17 12:19 Pulse 115 02/25/17 12:19 Resp 19 02/25/17 12:19 BP 103/72 02/25/17 12:19 Pulse Ox 95 02/25/17 12:19 Intake & Output 02/24/17 02/25/17 02/25/17 18:59 06:59 18:59 Intake Total 150 350 Balance 150 350 Weight (lbs) 78.018 kg Intake: Intake, IV Amount 150 200 Piperacillin Sodium/ 50 Tazobact 2.25 gm In Sodium Chloride 0.9% 50 ml @ 100 mls/hr IV Q6HR PATRICIA Rx#:[id number] metroNIDAZOLE 500mg/NS 100 200 100mL 500 mg In 100 ml @ 100 mls/hr IV Q8HR PATRICIA Rx #:[id number] Oral 150 Other: # Voids 3 # Bowel Movements 1 Stool Characteristics Liquid Liquid Liquid Active Medications: Current Medications Acetaminophen (Tylenol) 650 mg PO Q4HR PRN PRN Reason: TEMP >100 OR PAIN Stop: 04/11/17 15:21 Albuterol Sulfate (Albuterol 2.5mg/3ml Neb Ud) 2.5 mg HHN Q4HRT PRN PRN Reason: Wheezing Stop: 04/13/17 08:21 Last Admin: 02/24/17 17:10 Dose: 2.5 mg Albuterol/Ipratropium (Duoneb Neb) 3 ml HHN Q4HRT PATRICIA Stop: 04/25/17 18:59 Last Admin: 02/25/17 14:31 Dose: 3 ml Ascorbic Acid (Vitamin C) 500 mg PO DAILY PATRICIA Stop: 04/12/17 08:59 Last Admin: 02/25/17 09:44 Dose: 500 mg Atorvastatin Calcium (Lipitor) 10 mg PO HS PATRICIA PRN Reason: Protocol Stop: 04/11/17 20:59 Last Admin: 02/24/17 20:30 Dose: 10 mg Budesonide (Pulmicort) 0.5 mg HHN BIDRT PATRICIA Stop: 04/25/17 18:59 Last Admin: 02/25/17 11:36 Dose: 0.5 mg Furosemide (Lasix) 20 mg PO DAILY PATRICIA Stop: 04/26/17 08:59 Last Admin: 02/25/17 09:43 Dose: 20 mg Heparin Sodium (Porcine) (Heparin) 5,000 units SUBQ Q12HR PATRICIA Stop: 04/22/17 20:59 Last Admin: 02/25/17 09:44 Dose: 5,000 units Sodium Chloride (Nacl 0.45%) 1,000 mls @ 0 mls/hr IV .Q0M PATRICIA PRN Reason: KVO Stop: 04/15/17 10:13 Last Admin: 02/14/17 11:04 Dose: 10 mls/hr Metronidazole (Flagyl) 500 mg in 100 mls @ 100 mls/hr IV Q8HR PATRICIA Stop: 04/19/17 21:59 Last Admin: 02/25/17 12:35 Dose: 100 mls/hr Megestrol Acetate (Megace) 40 mg PO DAILY PATRICIA PRN Reason: Protocol Stop: 04/24/17 12:59 Last Admin: 02/25/17 09:44 Dose: 40 mg Miscellaneous (Probiotic Screen) 1 ea MC PRN PRN PRN Reason: PROTOCOL Stop: 04/12/17 09:13 Miscellaneous (Clinical Monitoring) 1 ea MC DAILY PRN PRN Reason: RENAL Stop: 04/19/17 12:28 Ondansetron HCl (Zofran) 4 mg IV Q8H PRN PRN Reason: Nausea / Vomiting Stop: 04/11/17 08:23 Last Admin: 02/16/17 09:10 Dose: 4 mg Pantoprazole Sodium (Protonix) 40 mg PO DAILY PATRICIA Stop: 04/12/17 08:59 Last Admin: 02/25/17 09:43 Dose: 40 mg Potassium Chloride (Klor-Con) 20 meq PO DAILY PATRICIA Stop: 04/17/17 08:59 Last Admin: 02/25/17 09:43 Dose: 20 meq Sodium Bicarbonate (Sodium Bicarbonate) 650 mg PO BID PATRICIA PRN Reason: Protocol Stop: 04/26/17 16:59 General: Alert, Mild distress HEENT: Atraumatic, PERRLA, EOMI, Mucous membr. moist/pink Neck: Supple, +2 carotid pulse wo bruit Cardiovascular: Regular rate, Normal S1, Normal S2 Lungs: Other (few rhonchi) Abdomen: Bowel sounds, Soft Extremities: no Edema Neurological: Sensation intact Skin: no Rash Psych/Mental Status: Mood NL - Procedures Procedures: Procedures Procedure Code Date INSERT TUNNELED CV CATH [id number] 02/09/17 INSERTION OF INFUSION DEV INTO L SUBCLAV VEIN, PERC APPROACH [id number] 02/09/17 Assessment/Plan - Problem List Patient Problems: All Active Problems NAUSEA AND VOMITING WITH DEHYDRATION (Acute) sepsis (Acute) Sepsis affecting skin (Acute) L02.91 - Assessment Assessment: Current Active Problems Problem Status Onset NAUSEA AND VOMITING WITH DEHYDRATION Acute leukocytosis distended gall bladder chf s/p arf s/p dialysis trachycardia - Plan Plan: as per nephro cpm labs will monitor Nutritional Asmnt/Malnutr-PDOC - Dietary Evaluation Malnutrition Findings (Please click <Entered> for more info): Nutritional Asmnt/Malnutrition Start: 02/14/17 13: 04 Text: Status: Complete Freq: Document 02/14/17 13:05 GSUN (Rec: 02/14/17 13:21 GSCB [id number]) Nutritional Asmnt/Malnutrition Patient General Information Nutritional Screening Moderate Risk Screening Pertinent Medical Hx/Surgical Hx Dx: Septic shock, hypotension, dehydration, metabolic acidosis improved, SU ?ATN, suspect aspiration PNA HTN, left knee prothesis, dyslipidemia, anemia Subjective Information 66 year old female, Czech speaking. Pt was receiving breathing treatment during [facility]. Observed clear liquid tray at bedside. MD progress note 02/13: DC NG tube and start PO as tolerated. Spoke to RN STEFANIE Mayorga stated for breakfast pt tolerated 2 juices, declined broth, RN will remove mask and encourage lunch shortly. No significant wasting noted. 02/11 KUB: mild ielus. Current Diet Order/ Nutrition Support Clear liquid Pertinent Medications Vitamin C, Lipitor, Culturelle , Solu-Medrol, Zofran, Protonix, Nacl 0.45% Pertinent Labs 02/13: potassium 3L 02/14: BUN 30H, creatinine 1.8H (declining) Nutritional Hx/Data Height 1.68 m Height (Calculated Centimeters) 167.6 Current Weight (lbs) 75.75 kg Weight (Calculated Kilograms) 75.7 Weight (Calculated Grams) 68144.9 Meredith Body Weight 130 Weight Status Overweight GI Symptoms Skin Integrity/Comment: Josias 14. Non-pitting edema bilateral feet. 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 Estimated Nutritional Goals Calories/Kcals/Kg IBW 130lb/59.1kg Kcals Calculated 1478-1773kcal (25-30kcal/kg) Protein Calculated 59g (1g/kg) Fluid: ml 1478-1773ml (1ml/kcal) Nutritional Problem 1. Problem Problem Impaired nutrient utilization related to Etiology renal dysfunction, per MD note SU ?ATN Signs/Symptoms: BUN 30H, creatinine 1.8H Intervention/Recommendation Comments 1. Recommend advance diet as tolerated to low sodium diet, to aid in renal function. No renal restriction due to hx of hypokalemia. Expected Outcomes/Goals Expected Outcomes/Goals 1. Pt to resume diet and meet at least 75% fo estimated nutritional needs.
--- NOTE | 2017-02-25 16:07 | Diagnostic Imaging Report ---
CHEST X-RAY: AP view INDICATION: CHF COMPARISON: 02/22/2017 FINDINGS: Right PICC line is seen with tip in SVC. The prior left-sided dialysis catheter has been removed. Small left effusion is again noted. Mild cardiomegaly is noted. IMPRESSION: No significant change in pulmonary status including small left effusion. Pneumonia of the left lung base cannot be excluded. Interval removal of the left-sided dialysis line. No evidence of anayeli CHF.
[2017-02-25] MEDS: Atorvastatin Calcium 10 MG TAB PO SCH (21:58)
--- NOTE | 2017-02-25 23:31 | Infectious Disease Prog Note ---
Infectious Disease Subjective - Review of Systems Service Date: 02/25/17 Subjective: There is no new change, no fever. No more nausea and vomiting. No diarhea. Patient WBC count improved to 16k Infectious Disease Objective - Results Result Diagrams: 02/27/17 06:20 02/27/17 06:20 Recent Labs: Laboratory Last Values WBC 21.3 Th/cmm (4.8-10.8) H* D 02/25/17 05:55 Corrected WBC (auto) 52.5 Th/cmm (4.8-10.8) H* 02/19/17 09:00 RBC 4.22 Mil/cmm (3.80-5.20) 02/25/17 05:55 Hgb 12.1 gm/dL (11.7-16.1) 02/25/17 05:55 Hct 34.7 % (35.0-45.0) L 02/25/17 05:55 MCV 82.2 fl (81-100) 02/25/17 05:55 MCH 28.7 pg (27.0-31.0) 02/25/17 05:55 MCHC Differential 34.9 pg (28.0-36.0) 02/25/17 05:55 RDW 19.0 % (11.5-20.0) 02/25/17 05:55 Plt Count 298 Th/cmm (150-400) 02/25/17 05:55 MPV 9.2 fl 02/25/17 05:55 Neutrophils % 84.8 % (40.0-80.0) H 02/16/17 05:00 Band Neutrophils % 3 % (0-10) 02/25/17 05:55 Lymphocytes % 10.0 % (20.0-50.0) L 02/16/17 05:00 Monocytes % 2.7 % (2.0-10.0) 02/16/17 05:00 Eosinophils % 0.1 % (0.0-5.0) 02/16/17 05:00 Basophils % 2.4 % (0.0-2.0) H 02/16/17 05:00 Neutrophils (Manual) 80 % (40-80) 02/25/17 05:55 Lymphocytes 5 % (20-50) L 02/25/17 05:55 Monocytes 7 % (2-10) 02/25/17 05:55 Eosinophils 1 % (0-5) 02/15/17 05:00 Basophils 1 % (0-3) 02/09/17 20:27 Metamyelocytes 1 % (0-0) H 02/23/17 05:40 Nucleated RBCs 1.0 % (0-0) H 02/23/17 05:40 Atypical Lymphocytes 5 % 02/25/17 05:55 Platelet Estimate ADEQUATE (NORMAL) 02/25/17 05:55 Platelet Morphology NORMAL (NORMAL) 02/24/17 05:30 Anisocytosis 1+ 02/18/17 05:55 RBC Morph Micro Appear NORMAL (NORMAL) 02/24/17 05:30 Smear Path Review REVIEWED 02/22/17 06:15 Eos Smear Source URINE 02/14/17 17:40 Eos Smear Total Cells NONE SEEN (NONE SEEN) 02/14/17 17:40 PT 15.6 SECONDS (9.5-11.5) H 02/19/17 16:04 INR 1.47 (0.5-1.4) H 02/19/17 16:04 PTT (Actin FS) 29.9 SECONDS (26.0-38.0) 02/19/17 16:04 Specimen Source Arterial 02/24/17 19:30 Sample Site RB 02/24/17 19:30 pH 7.56 (7.35-7.45) H* 02/24/17 19:30 pCO2 19.0 mmHg (35.0-45.0) L* 02/24/17 19:30 pO2 143.0 mmHg (80.0-100.0) H 02/24/17 19:30 HCO3 22.6 mEq/L (20.0-26.0) 02/24/17 19:30 Base Excess -3.1 mEq/L (-3.0-3.0) L 02/24/17 19:30 O2 Saturation 99.0 % (92.0-100.0) 02/24/17 19:30 Robin Test P 02/24/17 19:30 Vent Rate 12 02/24/17 19:30 Inspired O2 40 02/24/17 19:30 Tidal Volume NA 02/24/17 19:30 PEEP NA 02/24/17 19:30 Pressure (ins/psv/peep) NA 02/24/17 19:30 Critical Value RPINEIRA 02/24/17 19:30 Sodium 139 mEq/L (136-145) 02/25/17 05:55 Potassium 3.4 mEq/L (3.5-5.1) L 02/25/17 05:55 Chloride 109 mEq/L (98-107) H 02/25/17 05:55 Carbon Dioxide 18.2 mEq/L (21.0-31.0) L 02/25/17 05:55 Anion Gap 15.2 (7.0-16.0) 02/25/17 05:55 BUN 42 mg/dL (7-25) H 02/25/17 05:55 Creatinine 1.3 mg/dL (0.6-1.2) H 02/25/17 05:55 Est GFR ( Amer) 52.9 ml/min (>90) 02/25/17 05:55 Est GFR (Non-Af Amer) 43.7 ml/min 02/25/17 05:55 BUN/Creatinine Ratio 32.3 02/25/17 05:55 Glucose 125 mg/dL (70-105) H 02/25/17 05:55 POC Glucose 170 MG/DL (70 - 105) H 02/12/17 09:42 Hemoglobin A1c % 5.1 % (4.0-6.0) 02/11/17 08:11 Whole Bld Lactic Acid 1.29 mmol/L (0.60-1.99) 02/16/17 05:00 Uric Acid 11.2 mg/dL (2.3-6.6) H 02/15/17 05:00 Calcium 8.7 mg/dL (8.6-10.3) 02/25/17 05:55 Phosphorus 3.8 mg/dL (2.5-5.0) 02/15/17 05:00 Magnesium 2.2 mg/dL (1.9-2.7) 02/19/17 05:40 Total Bilirubin 1.0 mg/dL (0.3-1.0) 02/24/17 05:30 AST 81 U/L (13-39) H 02/24/17 05:30 ALT 83 U/L (7-52) H 02/24/17 05:30 Alkaline Phosphatase 364 U/L (34-104) H 02/24/17 05:30 Creatine Kinase 67 U/L (30-223) 02/12/17 04:41 CK-MB (CK-2) 1.1 ng/mL (0.6-6.3) 02/09/17 20:27 Troponin I 0.01 ng/mL (0.01-0.05) 02/09/17 20:27 B-Natriuretic Peptide 783.0 pg/mL (5.0-100.0) H 02/24/17 05:30 Total Protein 6.5 gm/dL (6.0-8.3) 02/24/17 05:30 Albumin 3.2 gm/dL (3.7-5.3) L 02/24/17 05:30 Globulin 3.3 gm/dL 02/24/17 05:30 Albumin/Globulin Ratio 1.0 (1.0-1.8) 02/24/17 05:30 Amylase 23 U/L (29-103) L 02/13/17 05:03 Lipase 13 U/L (11-82) 02/13/17 05:03 Urine Source ZEE PORT 02/14/17 17:40 Urine Color YELLOW 02/14/17 17:40 Urine Clarity SLIGHT HAZY (CLEAR) 02/14/17 17:40 Urine pH 5.5 02/14/17 17:40 Ur Specific [place] 1.020 (1.005-1.030) 02/14/17 17:40 Urine Protein 100 mg/dL (NEGATIVE) H 02/14/17 17:40 Urine Glucose (UA) NEGATIVE mg/dL (NEGATIVE) 02/14/17 17:40 Urine Ketones NEGATIVE mg/dL (NEGATIVE) 02/14/17 17:40 Urine Blood MODERATE (NEGATIVE) H 02/14/17 17:40 Urine Nitrate NEGATIVE (NEGATIVE) 02/14/17 17:40 Urine Bilirubin NEGATIVE (NEGATIVE) 02/14/17 17:40 Urine Urobilinogen 0.2 E.U./dL (0.2 - 1.0) 02/14/17 17:40 Ur Leukocyte Esterase NEGATIVE (NEGATIVE) 02/14/17 17:40 Urine RBC 2-5 /hpf (0-5) 02/14/17 17:40 Urine WBC 2-5 /hpf (0-5) 02/14/17 17:40 Ur Epithelial Cells FEW /lpf (FEW) 02/14/17 17:40 Amorphous Sediment MANY URATES (NONE SEEN) 02/14/17 17:40 Urine Bacteria MODERATE /hpf (NONE SEEN) 02/14/17 17:40 Hyaline Casts 0-2 /lpf (0-2) H 02/09/17 21:05 Urine Yeast FEW /hpf (NONE SEEN) H 02/14/17 17:40 Ur Random Sodium 37 mmol/L 02/14/17 17:40 Urine Creatinine 32.9 mg/dl (Not Estab.) 02/14/17 21:55 Urine Microalbumin 332.1 ug/mL (Not Estab.) 02/14/17 21:55 Microalb/Creat Ratio 1009.4 mg/g creat (0.0-30.0) H 02/14/17 21:55 Stool Leukocyte NO WBC SEEN 02/12/17 00:05 Hepatitis A IgM Ab Negative (Negative) 02/19/17 06:00 Hep Bs Antigen Negative (Negative) 02/19/17 06:00 Hep B Core IgM Ab Negative (Negative) 02/19/17 06:00 Hepatitis C Antibody 0.1 s/co ratio (0.0-0.9) 02/19/17 06:00 - Physical Exam Vitals and I&O: Vital Signs Temp 99.2 F 02/25/17 20:00 Pulse 109 02/25/17 22:55 Resp 20 02/25/17 22:55 BP 104/74 02/25/17 20:00 Pulse Ox 98 02/25/17 22:55 Intake & Output 02/25/17 02/25/17 02/26/17 06:59 18:59 06:59 Intake Total 350 340 120 Balance 350 340 120 Weight (lbs) 78.018 kg 78.018 kg 78.018 kg Intake: Intake, IV Amount 200 100 metroNIDAZOLE 500mg/NS 200 100 100mL 500 mg In 100 ml @ 100 mls/hr IV Q8HR [facility] Rx #:[id number] Oral 150 240 120 Other: # Voids 3 # Bowel Movements 1 Stool Characteristics Liquid Liquid Active Medications: Current Medications Acetaminophen (Tylenol) 650 mg PO Q4HR PRN PRN Reason: TEMP >100 OR PAIN Stop: 04/11/17 15:21 Albuterol Sulfate (Albuterol 2.5mg/3ml Neb Ud) 2.5 mg HHN Q4HRT PRN PRN Reason: Wheezing Stop: 04/13/17 08:21 Last Admin: 02/24/17 17:10 Dose: 2.5 mg Albuterol/Ipratropium (Duoneb Neb) 3 ml HHN Q4HRT PATRICIA Stop: 04/25/17 18:59 Last Admin: 02/25/17 22:38 Dose: 3 ml Ascorbic Acid (Vitamin C) 500 mg PO DAILY PATRICIA Stop: 04/12/17 08:59 Last Admin: 02/25/17 09:44 Dose: 500 mg Atorvastatin Calcium (Lipitor) 10 mg PO HS PATRICIA PRN Reason: Protocol Stop: 04/11/17 20:59 Last Admin: 02/25/17 21:58 Dose: 10 mg Budesonide (Pulmicort) 0.5 mg HHN BIDRT PATRICIA Stop: 04/25/17 18:59 Last Admin: 02/25/17 18:50 Dose: 0.5 mg Furosemide (Lasix) 20 mg PO DAILY PATRICIA Stop: 04/26/17 08:59 Last Admin: 02/25/17 09:43 Dose: 20 mg Heparin Sodium (Porcine) (Heparin) 5,000 units SUBQ Q12HR PATRICIA Stop: 04/22/17 20:59 Last Admin: 02/25/17 21:56 Dose: 5,000 units Sodium Chloride (Nacl 0.45%) 1,000 mls @ 0 mls/hr IV .Q0M PATRICIA PRN Reason: KVO Stop: 04/15/17 10:13 Last Admin: 02/14/17 11:04 Dose: 10 mls/hr Metronidazole (Flagyl) 500 mg in 100 mls @ 100 mls/hr IV Q8HR PATRICIA Stop: 04/19/17 21:59 Last Admin: 02/25/17 21:52 Dose: 100 mls/hr Megestrol Acetate (Megace) 40 mg PO DAILY PATRICIA PRN Reason: Protocol Stop: 04/24/17 12:59 Last Admin: 02/25/17 09:44 Dose: 40 mg Miscellaneous (Probiotic Screen) 1 ea MC PRN PRN PRN Reason: PROTOCOL Stop: 04/12/17 09:13 Miscellaneous (Clinical Monitoring) 1 ea MC DAILY PRN PRN Reason: RENAL Stop: 04/19/17 12:28 Ondansetron HCl (Zofran) 4 mg IV Q8H PRN PRN Reason: Nausea / Vomiting Stop: 04/11/17 08:23 Last Admin: 02/16/17 09:10 Dose: 4 mg Pantoprazole Sodium (Protonix) 40 mg PO DAILY [facility] Stop: 04/12/17 08:59 Last Admin: 02/25/17 09:43 Dose: 40 mg Potassium Chloride (Klor-Con) 20 meq PO DAILY PATRICIA Stop: 04/17/17 08:59 Last Admin: 02/25/17 09:43 Dose: 20 meq Sodium Bicarbonate (Sodium Bicarbonate) 650 mg PO BID PATRICIA PRN Reason: Protocol Stop: 04/26/17 16:59 Last Admin: 02/25/17 17:57 Dose: 650 mg Tramadol HCl (Ultram) 50 mg PO Q6HR PRN PRN Reason: Pain (Moderate) Stop: 04/26/17 16:08 Wound Care/Dressing Products (Therahoney) 1 appl TP DAILY [facility] Stop: 04/26/17 18:29 - Procedures Procedures: Procedures Procedure Code Date INSERT TUNNELED CV CATH [id number] 02/09/17 INSERTION OF INFUSION DEV INTO L SUBCLAV VEIN, PERC APPROACH [id number] 02/09/17 Infectious Disease Assmt/Plan - Problem List Patient Problems: All Active Problems NAUSEA AND VOMITING WITH DEHYDRATION (Acute) sepsis (Acute) Sepsis affecting skin (Acute) L02.91 - Assessment Assessment: 1. Leukocytosis, without bandemia improving. ? steroid ? Sepsis ? CDAC. 2. Pneumonia. 3. H/o HTN. 4. H/o Anemia. 5. Metabolic acidosis, improved. 6. SU, ? ATN. worsening of the creatinine. 7. Small superficial leg wound at the distal end, no sign of infection. 8. CHF. 9. H/O Left TKR. no clinical sign of infection. h/o prosthesis infection, treated recently. 10. Suspect aspiration pneumonia. 11. elevated liver enzymes. 12. Suspect CDAC , as patient has very high WBC count. Recommendations: Antibiotic cheek, continue flagyl for 7 days and Stool for C diff. wound care. Nutritional Asmnt/Malnutr-PDOC - Dietary Evaluation Malnutrition Findings (Please click <Entered> for more info): Nutritional Asmnt/Malnutrition Start: 02/14/17 13: 04 Text: Status: Complete Freq: Document 02/14/17 13:05 HERMANN (Rec: 02/14/17 13:21 [id number]) Nutritional Asmnt/Malnutrition Patient General Information Nutritional Screening Moderate Risk Screening Pertinent Medical Hx/Surgical Hx Dx: Septic shock, hypotension, dehydration, metabolic acidosis improved, SU ?ATN, suspect aspiration PNA HTN, left knee prothesis, dyslipidemia, anemia Subjective Information 66 year old female, Serbian speaking. Pt was receiving breathing treatment [facility]. Observed clear liquid tray at bedside. MD progress note 02/13: DC NG tube and start PO as tolerated. Spoke to RN STEFANIE Mayorga stated for breakfast pt tolerated 2 juices, declined broth, RN will remove mask and encourage lunch shortly. No significant wasting noted. 02/11 KUB: mild ielus. Current Diet Order/ Nutrition Support Clear liquid Pertinent Medications Vitamin C, Lipitor, Culturelle , Solu-Medrol, Zofran, Protonix, Nacl 0.45% Pertinent Labs 02/13: potassium 3L 02/14: BUN 30H, creatinine 1.8H (declining) Nutritional Hx/Data Height 1.68 m Height (Calculated Centimeters) 167.6 Current Weight (lbs) 75.75 kg Weight (Calculated Kilograms) 75.7 Weight (Calculated Grams) 19103.9 [place] Body Weight 130 Weight Status Overweight GI Symptoms Skin Integrity/Comment: Josias 14. Non-pitting edema bilateral feet. 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 Estimated Nutritional Goals Calories/Kcals/Kg IBW 130lb/59.1kg Kcals Calculated 1478-1773kcal (25-30kcal/kg) Protein Calculated 59g (1g/kg) Fluid: ml 1478-1773ml (1ml/kcal) Nutritional Problem 1. Problem Problem Impaired nutrient utilization related to Etiology renal dysfunction, per MD note SU ?ATN Signs/Symptoms: BUN 30H, creatinine 1.8H Intervention/Recommendation Comments 1. Recommend advance diet as tolerated to low sodium diet, to aid in renal function. No renal restriction due to hx of hypokalemia. Expected Outcomes/Goals Expected Outcomes/Goals 1. Pt to resume diet and meet at least 75% fo estimated nutritional needs.
[2017-02-26] MEDS: Albuterol/Ipratropium Neb 3 ML AERS HHN SCH ×6 (02:15→22:31)
[2017-02-26] MEDS: metroNIDAZOLE 500mg/NS 100mL 500 MG/100 ML BAG IV SCH (04:35)
[2017-02-26 06:08] LABS: HEMATOCRIT 31.5 % (35.0-45.0); HEMOGLOBIN 10.8 gm/dL (11.7-16.1); MEAN CELL VOLUME 83.1 fl (81-100); MEAN CORPUSCULAR HEMOGLOBIN 28.5 pg (27.0-31.0); MEAN CORPUSCULAR HGB CONC 34.3 pg (28.0-36.0); MEAN PLATELET VOLUME 9.4 fl; RED BLOOD COUNT 3.79 Mil/cmm (3.80-5.20); RED CELL DISTRIBUTION WIDTH 18.8 % (11.5-20.0)
[2017-02-26 06:20] LABS: PLATELET COUNT 238 Th/cmm (150-400); WHITE BLOOD COUNT 12.9 Th/cmm (4.8-10.8)
[2017-02-26 06:28] LABS: ANION GAP 12.6 (7.0-16.0); BUN - UREA NITROGEN 33 mg/dL (7-25); CALCIUM SERUM 7.6 mg/dL (8.6-10.3); CARBON DIOXIDE 18.5 mEq/L (21.0-31.0); CHLORIDE 114 mEq/L (98-107); GLUCOSE 93 mg/dL (70-105); POTASSIUM SERUM 3.1 mEq/L (3.5-5.1); SODIUM SERUM 142 mEq/L (136-145)
[2017-02-26] MEDS: Budesonide 0.5 Mg/2 mL Ud HHN SCH ×2 (07:04→18:51)
[2017-02-26 07:52] LABS: BAND NEUTROPHILE 2 % (0-10); NEUTROPHILS 86 % (40-80); PLATELET ESTIMATE ADEQUATE (NORMAL); TOTAL CELLS COUNTED 100
[2017-02-26 09:24] LABS: BILIRUBIN,DIRECT 0.23 mg/dL (0.0-0.2); BILIRUBIN,TOTAL 0.7 mg/dL (0.3-1.0)
[2017-02-26 09:34] LABS: ABG SOURCE Arterial; ALLEN TEST PASS; BE(B) -2.3 mEq/L (-3.0-3.0); FIO2 21; HCO3 23.1 mEq/L (20.0-26.0); pH 7.51 (7.35-7.45)
[2017-02-26 09:35] LABS: CRITICAL VALUES REPORTED BY PW
[2017-02-26] MEDS: Multivitamin w/ Minerals Tab PO SCH (10:13)
[2017-02-26] MEDS: Potassium Chloride 20 mEq ER Tab PO SCH (10:13)
[2017-02-26] MEDS: Pantoprazole 40 mg EC Tab PO SCH (10:14)
[2017-02-26] MEDS: KCL 20mEq/100mL Premix 20 MEQ/100 ML PIGGYBACK IV SCH ×2 (14:17→16:36)
--- NOTE | 2017-02-26 15:00 | General Progress Note ---
Subjective - Review of Systems Service Date: 02/26/17 Subjective: More awake, verbal, mild tachypnea, poor appetite Objective - Results Result Diagrams: 02/26/17 05:26 02/26/17 05:26 Recent Labs: Laboratory Last Values WBC 12.9 Th/cmm (4.8-10.8) H D 02/26/17 05:26 Corrected WBC (auto) 52.5 Th/cmm (4.8-10.8) H* 02/19/17 09:00 RBC 3.79 Mil/cmm (3.80-5.20) L 02/26/17 05:26 Hgb 10.8 gm/dL (11.7-16.1) L 02/26/17 05:26 Hct 31.5 % (35.0-45.0) L 02/26/17 05:26 MCV 83.1 fl (81-100) 02/26/17 05:26 MCH 28.5 pg (27.0-31.0) 02/26/17 05:26 MCHC Differential 34.3 pg (28.0-36.0) 02/26/17 05:26 RDW 18.8 % (11.5-20.0) 02/26/17 05:26 Plt Count 238 Th/cmm (150-400) D 02/26/17 05:26 MPV 9.4 fl 02/26/17 05:26 Neutrophils % 84.8 % (40.0-80.0) H 02/16/17 05:00 Band Neutrophils % 2 % (0-10) 02/26/17 05:26 Lymphocytes % 10.0 % (20.0-50.0) L 02/16/17 05:00 Monocytes % 2.7 % (2.0-10.0) 02/16/17 05:00 Eosinophils % 0.1 % (0.0-5.0) 02/16/17 05:00 Basophils % 2.4 % (0.0-2.0) H 02/16/17 05:00 Neutrophils (Manual) 86 % (40-80) H 02/26/17 05:26 Lymphocytes 10 % (20-50) L 02/26/17 05:26 Monocytes 2 % (2-10) 02/26/17 05:26 Eosinophils 1 % (0-5) 02/15/17 05:00 Basophils 1 % (0-3) 02/09/17 20:27 Metamyelocytes 1 % (0-0) H 02/23/17 05:40 Nucleated RBCs 1.0 % (0-0) H 02/23/17 05:40 Atypical Lymphocytes 5 % 02/25/17 05:55 Platelet Estimate ADEQUATE (NORMAL) 02/26/17 05:26 Platelet Morphology NORMAL (NORMAL) 02/24/17 05:30 Anisocytosis 1+ 02/18/17 05:55 RBC Morph Micro Appear NORMAL (NORMAL) 02/24/17 05:30 Smear Path Review REVIEWED 02/22/17 06:15 Eos Smear Source URINE 02/14/17 17:40 Eos Smear Total Cells NONE SEEN (NONE SEEN) 02/14/17 17:40 PT 15.6 SECONDS (9.5-11.5) H 02/19/17 16:04 INR 1.47 (0.5-1.4) H 02/19/17 16:04 PTT (Actin FS) 29.9 SECONDS (26.0-38.0) 02/19/17 16:04 Specimen Source Arterial 02/26/17 09:24 Sample Site Left Radial 02/26/17 09:24 pH 7.51 (7.35-7.45) H 02/26/17 09:24 pCO2 24.0 mmHg (35.0-45.0) L* 02/26/17 09:24 pO2 73.0 mmHg (80.0-100.0) L 02/26/17 09:24 HCO3 23.1 mEq/L (20.0-26.0) 02/26/17 09:24 Base Excess -2.3 mEq/L (-3.0-3.0) 02/26/17 09:24 O2 Saturation 96.0 % (92.0-100.0) 02/26/17 09:24 Robin Test PASS 02/26/17 09:24 Vent Rate 12 02/24/17 19:30 Inspired O2 21 02/26/17 09:24 Tidal Volume NA 02/24/17 19:30 PEEP NA 02/24/17 19:30 Pressure (ins/psv/peep) NA 02/24/17 19:30 Critical Value PW 02/26/17 09:24 Sodium 142 mEq/L (136-145) 02/26/17 05:26 Potassium 3.1 mEq/L (3.5-5.1) L 02/26/17 05:26 Chloride 114 mEq/L (98-107) H 02/26/17 05:26 Carbon Dioxide 18.5 mEq/L (21.0-31.0) L 02/26/17 05:26 Anion Gap 12.6 (7.0-16.0) 02/26/17 05:26 BUN 33 mg/dL (7-25) H 02/26/17 05:26 Creatinine 1.0 mg/dL (0.6-1.2) 02/26/17 05:26 Est GFR ( Amer) > 60.0 ml/min (>90) 02/26/17 05:26 Est GFR (Non-Af Amer) 59.1 ml/min 02/26/17 05:26 BUN/Creatinine Ratio 33.0 02/26/17 05:26 Glucose 93 mg/dL (70-105) 02/26/17 05:26 POC Glucose 170 MG/DL (70 - 105) H 02/12/17 09:42 Hemoglobin A1c % 5.1 % (4.0-6.0) 02/11/17 08:11 Whole Bld Lactic Acid 1.29 mmol/L (0.60-1.99) 02/16/17 05:00 Uric Acid 11.2 mg/dL (2.3-6.6) H 02/15/17 05:00 Calcium 7.6 mg/dL (8.6-10.3) L 02/26/17 05:26 Phosphorus 3.8 mg/dL (2.5-5.0) 02/15/17 05:00 Magnesium 2.2 mg/dL (1.9-2.7) 02/19/17 05:40 Total Bilirubin 0.7 mg/dL (0.3-1.0) 02/26/17 05:35 Direct Bilirubin 0.23 mg/dL (0.0-0.2) H 02/26/17 05:35 AST 74 U/L (13-39) H 02/26/17 05:35 ALT 58 U/L (7-52) H 02/26/17 05:35 Alkaline Phosphatase 232 U/L (34-104) H 02/26/17 05:35 Creatine Kinase 67 U/L (30-223) 02/12/17 04:41 CK-MB (CK-2) 1.1 ng/mL (0.6-6.3) 02/09/17 20:27 Troponin I 0.01 ng/mL (0.01-0.05) 02/09/17 20:27 B-Natriuretic Peptide 783.0 pg/mL (5.0-100.0) H 02/24/17 05:30 Total Protein 5.3 gm/dL (6.0-8.3) L 02/26/17 05:35 Albumin 2.6 gm/dL (3.7-5.3) L 02/26/17 05:35 Globulin 2.7 gm/dL 02/26/17 05:35 Albumin/Globulin Ratio 1.0 (1.0-1.8) 02/26/17 05:35 Amylase 23 U/L (29-103) L 02/13/17 05:03 Lipase 13 U/L (11-82) 02/13/17 05:03 Urine Source ZEE PORT 02/14/17 17:40 Urine Color YELLOW 02/14/17 17:40 Urine Clarity SLIGHT HAZY (CLEAR) 02/14/17 17:40 Urine pH 5.5 02/14/17 17:40 Ur Specific [place] 1.020 (1.005-1.030) 02/14/17 17:40 Urine Protein 100 mg/dL (NEGATIVE) H 02/14/17 17:40 Urine Glucose (UA) NEGATIVE mg/dL (NEGATIVE) 02/14/17 17:40 Urine Ketones NEGATIVE mg/dL (NEGATIVE) 02/14/17 17:40 Urine Blood MODERATE (NEGATIVE) H 02/14/17 17:40 Urine Nitrate NEGATIVE (NEGATIVE) 02/14/17 17:40 Urine Bilirubin NEGATIVE (NEGATIVE) 02/14/17 17:40 Urine Urobilinogen 0.2 E.U./dL (0.2 - 1.0) 02/14/17 17:40 Ur Leukocyte Esterase NEGATIVE (NEGATIVE) 02/14/17 17:40 Urine RBC 2-5 /hpf (0-5) 02/14/17 17:40 Urine WBC 2-5 /hpf (0-5) 02/14/17 17:40 Ur Epithelial Cells FEW /lpf (FEW) 02/14/17 17:40 Amorphous Sediment MANY URATES (NONE SEEN) 02/14/17 17:40 Urine Bacteria MODERATE /hpf (NONE SEEN) 02/14/17 17:40 Hyaline Casts 0-2 /lpf (0-2) H 02/09/17 21:05 Urine Yeast FEW /hpf (NONE SEEN) H 02/14/17 17:40 Ur Random Sodium 37 mmol/L 02/14/17 17:40 Urine Creatinine 32.9 mg/dl (Not Estab.) 02/14/17 21:55 Urine Microalbumin 332.1 ug/mL (Not Estab.) 02/14/17 21:55 Microalb/Creat Ratio 1009.4 mg/g creat (0.0-30.0) H 02/14/17 21:55 Stool Leukocyte NO WBC SEEN 02/12/17 00:05 Hepatitis A IgM Ab Negative (Negative) 02/19/17 06:00 Hep Bs Antigen Negative (Negative) 02/19/17 06:00 Hep B Core IgM Ab Negative (Negative) 02/19/17 06:00 Hepatitis C Antibody 0.1 s/co ratio (0.0-0.9) 02/19/17 06:00 - Physical Exam Vitals and I&O: Vital Signs Temp 98.7 F 02/26/17 12:00 Pulse 138 02/26/17 12:00 Resp 18 02/26/17 12:21 BP 109/80 02/26/17 12:00 Pulse Ox 99 02/26/17 12:00 Intake & Output 02/25/17 02/26/17 02/26/17 18:59 06:59 18:59 Intake Total 340 220 Balance 340 220 Weight (lbs) 78.018 kg 78.018 kg Intake: Intake, IV Amount 100 100 metroNIDAZOLE 500mg/NS 100 100 100mL 500 mg In 100 ml @ 100 mls/hr IV Q8HR [facility] Rx #:[id number] Oral 240 120 Other: Stool Characteristics Liquid Active Medications: Current Medications Acetaminophen (Tylenol) 650 mg PO Q4HR PRN PRN Reason: TEMP >100 OR PAIN Stop: 04/11/17 15:21 Albuterol Sulfate (Albuterol 2.5mg/3ml Neb Ud) 2.5 mg HHN Q4HRT PRN PRN Reason: Wheezing Stop: 04/13/17 08:21 Last Admin: 02/24/17 17:10 Dose: 2.5 mg Albuterol/Ipratropium (Duoneb Neb) 3 ml HHN Q4HRT PATRICIA Stop: 04/25/17 18:59 Last Admin: 02/26/17 11:12 Dose: 3 ml Ascorbic Acid (Vitamin C) 500 mg PO DAILY PATRICIA Stop: 04/12/17 08:59 Last Admin: 02/26/17 10:14 Dose: 500 mg Atorvastatin Calcium (Lipitor) 10 mg PO HS PATRICIA PRN Reason: Protocol Stop: 04/11/17 20:59 Last Admin: 02/25/17 21:58 Dose: 10 mg Budesonide (Pulmicort) 0.5 mg HHN BIDRT PATRICIA Stop: 04/25/17 18:59 Last Admin: 02/26/17 07:04 Dose: 0.5 mg Furosemide (Lasix) 20 mg PO DAILY PATRICIA Stop: 04/26/17 08:59 Last Admin: 02/26/17 10:13 Dose: 20 mg Heparin Sodium (Porcine) (Heparin) 5,000 units SUBQ Q12HR PATRICIA Stop: 04/22/17 20:59 Last Admin: 02/26/17 10:15 Dose: 5,000 units Sodium Chloride (Nacl 0.45%) 1,000 mls @ 0 mls/hr IV .Q0M PATRICIA PRN Reason: KVO Stop: 04/15/17 10:13 Last Admin: 02/14/17 11:04 Dose: 10 mls/hr Potassium Chloride (Potassium Chloride) 20 meq in 100 mls @ 50 mls/hr IV Q2H PATRICIA Stop: 02/26/17 17:59 Last Admin: 02/26/17 14:17 Dose: 50 mls/hr Megestrol Acetate (Megace) 40 mg PO DAILY PATRICIA PRN Reason: Protocol Stop: 04/24/17 12:59 Last Admin: 02/26/17 10:14 Dose: 40 mg Miscellaneous (Probiotic Screen) 1 ea MC PRN PRN PRN Reason: PROTOCOL Stop: 04/12/17 09:13 Miscellaneous (Clinical Monitoring) 1 ea MC DAILY PRN PRN Reason: RENAL Stop: 04/19/17 12:28 Ondansetron HCl (Zofran) 4 mg IV Q8H PRN PRN Reason: Nausea / Vomiting Stop: 04/11/17 08:23 Last Admin: 02/16/17 09:10 Dose: 4 mg Pantoprazole Sodium (Protonix) 40 mg PO DAILY [facility] Stop: 04/12/17 08:59 Last Admin: 02/26/17 10:14 Dose: 40 mg Potassium Chloride (Klor-Con) 20 meq PO DAILY [facility] Stop: 04/17/17 08:59 Last Admin: 02/26/17 10:13 Dose: 20 meq Sodium Bicarbonate (Sodium Bicarbonate) 650 mg PO BID PATRICIA PRN Reason: Protocol Stop: 04/26/17 16:59 Last Admin: 02/26/17 10:14 Dose: 650 mg Tramadol HCl (Ultram) 50 mg PO Q6HR PRN PRN Reason: Pain (Moderate) Stop: 04/26/17 16:08 Last Admin: 02/26/17 00:45 Dose: 50 mg Wound Care/Dressing Products (Therahoney) 1 appl TP DAILY [facility] Stop: 04/26/17 18:29 General: Alert, Mild distress HEENT: Atraumatic, PERRLA, EOMI, Mucous membr. moist/pink Neck: Supple, +2 carotid pulse wo bruit Cardiovascular: Regular rate, Normal S1, Normal S2 Lungs: Other (few rhonchi) Abdomen: Bowel sounds, Soft Extremities: no Edema Neurological: Sensation intact Skin: no Rash Psych/Mental Status: Mood NL - Procedures Procedures: Procedures Procedure Code Date INSERT TUNNELED CV CATH [id number] 02/09/17 INSERTION OF INFUSION DEV INTO L SUBCLAV VEIN, PERC APPROACH [id number] 02/09/17 Assessment/Plan - Problem List Patient Problems: All Active Problems NAUSEA AND VOMITING WITH DEHYDRATION (Acute) sepsis (Acute) Sepsis affecting skin (Acute) L02.91 - Assessment Assessment: Acute kidney injury secondary to acute tubular injury Fractional excretion of sodium is 1.1% suggestive of intrinsic renal failure Shock secondary to sepsis Distended gallbladder with normal acute cholecystitis Abdominal pain secondary to ileus Ileus secondary to sepsis Acute decompensation of systolic congestive heart failure(EJF 15-20%) Respiratory failure secondary to aspiration pneumonia/CHF Anemia of chronic kidney disease Dyslipidemia Status post Infected prosthesis left knee, status post I&D respiratory alkalosis Sepsis secondary to aspiration pneumonia Worsening liver enzymes due to sepsis, medications, hypotension Acalculous Cholecystitis - Plan Plan: Lab - Result Diagrams 02/15/17 05:00 02/15/17 05:00 Current Medications Acetaminophen (Tylenol) 650 mg PO Q4HR PRN PRN Reason: TEMP >100 OR PAIN Stop: 04/11/17 15:21 Acetaminophen/Codeine Phosphate (Tylenol W/Codeine #3) 1 tab PO Q6HR PRN PRN Reason: MODERATE PAIN Stop: 04/11/17 15:21 Last Admin: 02/14/17 02:08 Dose: 1 tab Acetaminophen/Hydrocodone Bitart ([place] 5mg/325mg) 2 tab PO Q4H PRN PRN Reason: Severe Pain Stop: 04/11/17 15:21 Last Admin: 02/15/17 00:06 Dose: 2 tab Albuterol Sulfate (Albuterol 2.5mg/3ml Neb Ud) 2.5 mg HHN Q4HRT PRN PRN Reason: Wheezing Stop: 04/13/17 08:21 Last Admin: 02/14/17 15:54 Dose: 2.5 mg Ascorbic Acid (Vitamin C) 500 mg PO DAILY PATRICIA Stop: 04/12/17 08:59 Last Admin: 02/15/17 09:33 Dose: 500 mg Atorvastatin Calcium (Lipitor) 10 mg PO HS PATRICIA PRN Reason: Protocol Stop: 04/11/17 20:59 Last Admin: 02/14/17 20:49 Dose: 10 mg Furosemide (Lasix) 40 mg IVP BID PATRICIA Stop: 04/14/17 08:59 Last Admin: 02/15/17 09:33 Dose: 40 mg Piperacillin Sod/Tazobactam (Sod 4.5 gm/ Sodium Chloride) 100 mls @ 100 mls/hr IV Q8HR PATRICIA Stop: 04/11/17 13:59 Last Admin: 02/15/17 05:23 Dose: 100 mls/hr Norepinephrine Bitartrate 8 mg (/ Dextrose) 258 mls @ 77.4 mls/hr IV TITR PRN; Protocol; 40 MCG/MIN PRN Reason: BP MAINTENANCE (PER PROTOCOL) Stop: 04/12/17 07:46 Last Admin: 02/15/17 01:45 Dose: 5.16 mcg/min, 9.98 mls/hr Diltiazem HCl 125 mg/ Dextrose 125 mls @ 10 mls/hr IV TITR PATRICIA; 10 MG/HR PRN Reason: Protocol Stop: 04/15/17 04:29 Last Titration: 02/15/17 10:18 Dose: Infused Sodium Chloride (Nacl 0.45%) 1,000 mls @ 0 mls/hr IV .Q0M PATRICIA PRN Reason: KVO Stop: 04/15/17 10:13 Last Admin: 02/14/17 11:04 Dose: 10 mls/hr Lactobacillus Rhamnosus (Culturelle) 1 each PO DAILY PATRICIA Stop: 04/13/17 08:59 Last Admin: 02/15/17 09:33 Dose: 1 each Methylprednisolone Sodium Succinate (Solu-Medrol) 20 mg IVP Q8HR PATRICIA Stop: 04/14/17 12:59 Last Admin: 02/15/17 05:23 Dose: 20 mg Miscellaneous (Probiotic Screen) 1 ea MC PRN PRN PRN Reason: PROTOCOL Stop: 04/12/17 09:13 Ondansetron HCl (Zofran) 4 mg IV Q8H PRN PRN Reason: Nausea / Vomiting Stop: 04/11/17 08:23 Last Admin: 02/12/17 00:59 Dose: 4 mg Pantoprazole Sodium (Protonix) 40 mg PO DAILY PATRICIA Stop: 04/12/17 08:59 Last Admin: 02/15/17 09:32 Dose: 40 mg Kidney function better with a BUN/creatinine of 33/1, off dialysis, close to baseline Chest x-ray left PNA, but no anayeli CHF Continue gentle diuresis Off Levophed Monitor electrolytes and CBC along with chest x-ray Replace potassium and magnesium White count down to 12.9 Liver enzymes slightly improved Echo revealed ejection fraction 15-20% with RVSP of 24.5, consider AICD, Bivent pacer On Zosyn agree w/ K replacement Nutritional Asmnt/Malnutr-PDOC - Dietary Evaluation Malnutrition Findings (Please click <Entered> for more info): Nutritional Asmnt/Malnutrition Start: 02/14/17 13: 04 Text: Status: Complete Freq: Document 02/14/17 13:05 GSUN (Rec: 02/14/17 13:21 GSCB [id number]) Nutritional Asmnt/Malnutrition Patient General Information Nutritional Screening Moderate Risk Screening Pertinent Medical Hx/Surgical Hx Dx: Septic shock, hypotension, dehydration, metabolic acidosis improved, SU ?ATN, suspect aspiration PNA HTN, left knee prothesis, dyslipidemia, anemia Subjective Information 66 year old female, [place] speaking. Pt was receiving breathing treatment [facility]. Observed clear liquid tray at bedside. progress note 02/13: DC NG tube and start PO as tolerated. Spoke to RN STEFANIE Mayorga stated for breakfast pt tolerated 2 juices, declined broth, RN will remove mask and encourage lunch shortly. No significant wasting noted. 02/11 KUB: mild ielus. Current Diet Order/ Nutrition Support Clear liquid Pertinent Medications Vitamin C, Lipitor, Culturelle , Solu-Medrol, Zofran, Protonix, Nacl 0.45% Pertinent Labs 02/13: potassium 3L 02/14: BUN 30H, creatinine 1.8H (declining) Nutritional Hx/Data Height 1.68 m Height (Calculated Centimeters) 167.6 Current Weight (lbs) 75.75 kg Weight (Calculated Kilograms) 75.7 Weight (Calculated Grams) 63977.9 [place] Body Weight 130 Weight Status Overweight GI Symptoms Skin Integrity/Comment: Josias 14. Non-pitting edema bilateral feet. 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 Estimated Nutritional Goals Calories/Kcals/Kg IBW 130lb/59.1kg Kcals Calculated 1478-1773kcal (25-30kcal/kg) Protein Calculated 59g (1g/kg) Fluid: ml 1478-1773ml (1ml/kcal) Nutritional Problem 1. Problem Problem Impaired nutrient utilization related to Etiology renal dysfunction, per MD note SU ?ATN Signs/Symptoms: BUN 30H, creatinine 1.8H Intervention/Recommendation Comments 1. Recommend advance diet as tolerated to low sodium diet, to aid in renal function. No renal restriction due to hx of hypokalemia. Expected Outcomes/Goals Expected Outcomes/Goals 1. Pt to resume diet and meet at least 75% fo estimated nutritional needs.
--- NOTE | 2017-02-26 16:23 | General Progress Note ---
Subjective - Review of Systems Service Date: 02/26/17 Objective - Results Result Diagrams: 02/26/17 05:26 02/26/17 05:26 Recent Labs: Laboratory Last Values WBC 12.9 Th/cmm (4.8-10.8) H D 02/26/17 05:26 Corrected WBC (auto) 52.5 Th/cmm (4.8-10.8) H* 02/19/17 09:00 RBC 3.79 Mil/cmm (3.80-5.20) L 02/26/17 05:26 Hgb 10.8 gm/dL (11.7-16.1) L 02/26/17 05:26 Hct 31.5 % (35.0-45.0) L 02/26/17 05:26 MCV 83.1 fl (81-100) 02/26/17 05:26 MCH 28.5 pg (27.0-31.0) 02/26/17 05:26 MCHC Differential 34.3 pg (28.0-36.0) 02/26/17 05:26 RDW 18.8 % (11.5-20.0) 02/26/17 05:26 Plt Count 238 Th/cmm (150-400) D 02/26/17 05:26 MPV 9.4 fl 02/26/17 05:26 Neutrophils % 84.8 % (40.0-80.0) H 02/16/17 05:00 Band Neutrophils % 2 % (0-10) 02/26/17 05:26 Lymphocytes % 10.0 % (20.0-50.0) L 02/16/17 05:00 Monocytes % 2.7 % (2.0-10.0) 02/16/17 05:00 Eosinophils % 0.1 % (0.0-5.0) 02/16/17 05:00 Basophils % 2.4 % (0.0-2.0) H 02/16/17 05:00 Neutrophils (Manual) 86 % (40-80) H 02/26/17 05:26 Lymphocytes 10 % (20-50) L 02/26/17 05:26 Monocytes 2 % (2-10) 02/26/17 05:26 Eosinophils 1 % (0-5) 02/15/17 05:00 Basophils 1 % (0-3) 02/09/17 20:27 Metamyelocytes 1 % (0-0) H 02/23/17 05:40 Nucleated RBCs 1.0 % (0-0) H 02/23/17 05:40 Atypical Lymphocytes 5 % 02/25/17 05:55 Platelet Estimate ADEQUATE (NORMAL) 02/26/17 05:26 Platelet Morphology NORMAL (NORMAL) 02/24/17 05:30 Anisocytosis 1+ 02/18/17 05:55 RBC Morph Micro Appear NORMAL (NORMAL) 02/24/17 05:30 Smear Path Review REVIEWED 02/22/17 06:15 Eos Smear Source URINE 02/14/17 17:40 Eos Smear Total Cells NONE SEEN (NONE SEEN) 02/14/17 17:40 PT 15.6 SECONDS (9.5-11.5) H 02/19/17 16:04 INR 1.47 (0.5-1.4) H 02/19/17 16:04 PTT (Actin FS) 29.9 SECONDS (26.0-38.0) 02/19/17 16:04 Specimen Source Arterial 02/26/17 09:24 Sample Site Left Radial 02/26/17 09:24 pH 7.51 (7.35-7.45) H 02/26/17 09:24 pCO2 24.0 mmHg (35.0-45.0) L* 02/26/17 09:24 pO2 73.0 mmHg (80.0-100.0) L 02/26/17 09:24 HCO3 23.1 mEq/L (20.0-26.0) 02/26/17 09:24 Base Excess -2.3 mEq/L (-3.0-3.0) 02/26/17 09:24 O2 Saturation 96.0 % (92.0-100.0) 02/26/17 09:24 Robin Test PASS 02/26/17 09:24 Vent Rate 12 02/24/17 19:30 Inspired O2 21 02/26/17 09:24 Tidal Volume NA 02/24/17 19:30 PEEP NA 02/24/17 19:30 Pressure (ins/psv/peep) NA 02/24/17 19:30 Critical Value PW 02/26/17 09:24 Sodium 142 mEq/L (136-145) 02/26/17 05:26 Potassium 3.1 mEq/L (3.5-5.1) L 02/26/17 05:26 Chloride 114 mEq/L (98-107) H 02/26/17 05:26 Carbon Dioxide 18.5 mEq/L (21.0-31.0) L 02/26/17 05:26 Anion Gap 12.6 (7.0-16.0) 02/26/17 05:26 BUN 33 mg/dL (7-25) H 02/26/17 05:26 Creatinine 1.0 mg/dL (0.6-1.2) 02/26/17 05:26 Est GFR ( Amer) > 60.0 ml/min (>90) 02/26/17 05:26 Est GFR (Non-Af Amer) 59.1 ml/min 02/26/17 05:26 BUN/Creatinine Ratio 33.0 02/26/17 05:26 Glucose 93 mg/dL (70-105) 02/26/17 05:26 POC Glucose 170 MG/DL (70 - 105) H 02/12/17 09:42 Hemoglobin A1c % 5.1 % (4.0-6.0) 02/11/17 08:11 Whole Bld Lactic Acid 1.29 mmol/L (0.60-1.99) 02/16/17 05:00 Uric Acid 11.2 mg/dL (2.3-6.6) H 02/15/17 05:00 Calcium 7.6 mg/dL (8.6-10.3) L 02/26/17 05:26 Phosphorus 3.8 mg/dL (2.5-5.0) 02/15/17 05:00 Magnesium 2.2 mg/dL (1.9-2.7) 02/19/17 05:40 Total Bilirubin 0.7 mg/dL (0.3-1.0) 02/26/17 05:35 Direct Bilirubin 0.23 mg/dL (0.0-0.2) H 02/26/17 05:35 AST 74 U/L (13-39) H 02/26/17 05:35 ALT 58 U/L (7-52) H 02/26/17 05:35 Alkaline Phosphatase 232 U/L (34-104) H 02/26/17 05:35 Creatine Kinase 67 U/L (30-223) 02/12/17 04:41 CK-MB (CK-2) 1.1 ng/mL (0.6-6.3) 02/09/17 20:27 Troponin I 0.01 ng/mL (0.01-0.05) 02/09/17 20:27 B-Natriuretic Peptide 783.0 pg/mL (5.0-100.0) H 02/24/17 05:30 Total Protein 5.3 gm/dL (6.0-8.3) L 02/26/17 05:35 Albumin 2.6 gm/dL (3.7-5.3) L 02/26/17 05:35 Globulin 2.7 gm/dL 02/26/17 05:35 Albumin/Globulin Ratio 1.0 (1.0-1.8) 02/26/17 05:35 Amylase 23 U/L (29-103) L 02/13/17 05:03 Lipase 13 U/L (11-82) 02/13/17 05:03 Urine Source ZEE PORT 02/14/17 17:40 Urine Color YELLOW 02/14/17 17:40 Urine Clarity SLIGHT HAZY (CLEAR) 02/14/17 17:40 Urine pH 5.5 02/14/17 17:40 Ur Specific [place] 1.020 (1.005-1.030) 02/14/17 17:40 Urine Protein 100 mg/dL (NEGATIVE) H 02/14/17 17:40 Urine Glucose (UA) NEGATIVE mg/dL (NEGATIVE) 02/14/17 17:40 Urine Ketones NEGATIVE mg/dL (NEGATIVE) 02/14/17 17:40 Urine Blood MODERATE (NEGATIVE) H 02/14/17 17:40 Urine Nitrate NEGATIVE (NEGATIVE) 02/14/17 17:40 Urine Bilirubin NEGATIVE (NEGATIVE) 02/14/17 17:40 Urine Urobilinogen 0.2 E.U./dL (0.2 - 1.0) 02/14/17 17:40 Ur Leukocyte Esterase NEGATIVE (NEGATIVE) 02/14/17 17:40 Urine RBC 2-5 /hpf (0-5) 02/14/17 17:40 Urine WBC 2-5 /hpf (0-5) 02/14/17 17:40 Ur Epithelial Cells FEW /lpf (FEW) 02/14/17 17:40 Amorphous Sediment MANY URATES (NONE SEEN) 02/14/17 17:40 Urine Bacteria MODERATE /hpf (NONE SEEN) 02/14/17 17:40 Hyaline Casts 0-2 /lpf (0-2) H 02/09/17 21:05 Urine Yeast FEW /hpf (NONE SEEN) H 02/14/17 17:40 Ur Random Sodium 37 mmol/L 02/14/17 17:40 Urine Creatinine 32.9 mg/dl (Not Estab.) 02/14/17 21:55 Urine Microalbumin 332.1 ug/mL (Not Estab.) 02/14/17 21:55 Microalb/Creat Ratio 1009.4 mg/g creat (0.0-30.0) H 02/14/17 21:55 Stool Leukocyte NO WBC SEEN 02/12/17 00:05 Hepatitis A IgM Ab Negative (Negative) 02/19/17 06:00 Hep Bs Antigen Negative (Negative) 02/19/17 06:00 Hep B Core IgM Ab Negative (Negative) 02/19/17 06:00 Hepatitis C Antibody 0.1 s/co ratio (0.0-0.9) 02/19/17 06:00 - Physical Exam Vitals and I&O: Vital Signs Temp 98.7 F 02/26/17 12:00 Pulse 118 02/26/17 15:36 Resp 18 02/26/17 15:36 BP 109/80 02/26/17 12:00 Pulse Ox 96 02/26/17 15:36 Intake & Output 02/25/17 02/26/17 02/26/17 18:59 06:59 18:59 Intake Total 340 220 Balance 340 220 Weight (lbs) 78.018 kg 78.018 kg Intake: Intake, IV Amount 100 100 metroNIDAZOLE 500mg/NS 100 100 100mL 500 mg In 100 ml @ 100 mls/hr IV Q8HR [facility] Rx #:[id number] Oral 240 120 Other: Stool Characteristics Liquid Active Medications: Current Medications Acetaminophen (Tylenol) 650 mg PO Q4HR PRN PRN Reason: TEMP >100 OR PAIN Stop: 04/11/17 15:21 Albuterol Sulfate (Albuterol 2.5mg/3ml Neb Ud) 2.5 mg HHN Q4HRT PRN PRN Reason: Wheezing Stop: 04/13/17 08:21 Last Admin: 02/24/17 17:10 Dose: 2.5 mg Albuterol/Ipratropium (Duoneb Neb) 3 ml HHN Q4HRT [facility] Stop: 04/25/17 18:59 Last Admin: 02/26/17 15:35 Dose: 3 ml Ascorbic Acid (Vitamin C) 500 mg PO DAILY [facility] Stop: 04/12/17 08:59 Last Admin: 02/26/17 10:14 Dose: 500 mg Atorvastatin Calcium (Lipitor) 10 mg PO HS [facility] PRN Reason: Protocol Stop: 04/11/17 20:59 Last Admin: 02/25/17 21:58 Dose: 10 mg Budesonide (Pulmicort) 0.5 mg HHN BIDRT [facility] Stop: 04/25/17 18:59 Last Admin: 02/26/17 07:04 Dose: 0.5 mg Furosemide (Lasix) 20 mg PO DAILY [facility] Stop: 04/26/17 08:59 Last Admin: 02/26/17 10:13 Dose: 20 mg Heparin Sodium (Porcine) (Heparin) 5,000 units SUBQ Q12HR [facility] Stop: 04/22/17 20:59 Last Admin: 02/26/17 10:15 Dose: 5,000 units Sodium Chloride (Nacl 0.45%) 1,000 mls @ 0 mls/hr IV .Q0M [facility] PRN Reason: KVO Stop: 04/15/17 10:13 Last Admin: 02/14/17 11:04 Dose: 10 mls/hr Potassium Chloride (Potassium Chloride) 20 meq in 100 mls @ 50 mls/hr IV Q2H [facility] Stop: 02/26/17 17:59 Last Admin: 02/26/17 14:17 Dose: 50 mls/hr Megestrol Acetate (Megace) 40 mg PO DAILY [facility] PRN Reason: Protocol Stop: 04/24/17 12:59 Last Admin: 02/26/17 10:14 Dose: 40 mg Miscellaneous (Probiotic Screen) 1 ea MC PRN PRN PRN Reason: PROTOCOL Stop: 04/12/17 09:13 Miscellaneous (Clinical Monitoring) 1 ea MC DAILY PRN PRN Reason: RENAL Stop: 04/19/17 12:28 Ondansetron HCl (Zofran) 4 mg IV Q8H PRN PRN Reason: Nausea / Vomiting Stop: 04/11/17 08:23 Last Admin: 02/16/17 09:10 Dose: 4 mg Pantoprazole Sodium (Protonix) 40 mg PO DAILY [facility] Stop: 04/12/17 08:59 Last Admin: 02/26/17 10:14 Dose: 40 mg Potassium Chloride (Klor-Con) 20 meq PO DAILY [facility] Stop: 04/17/17 08:59 Last Admin: 02/26/17 10:13 Dose: 20 meq Sodium Bicarbonate (Sodium Bicarbonate) 650 mg PO BID [facility] PRN Reason: Protocol Stop: 04/26/17 16:59 Last Admin: 02/26/17 10:14 Dose: 650 mg Tramadol HCl (Ultram) 50 mg PO Q6HR PRN PRN Reason: Pain (Moderate) Stop: 04/26/17 16:08 Last Admin: 02/26/17 00:45 Dose: 50 mg Wound Care/Dressing Products (Therahoney) 1 appl TP DAILY [facility] Stop: 04/26/17 18:29 General: Alert, Mild distress HEENT: Atraumatic, PERRLA, EOMI, Mucous membr. moist/pink Neck: Supple, +2 carotid pulse wo bruit Cardiovascular: Regular rate, Normal S1, Normal S2 Lungs: Other (few rhonchi) Abdomen: Bowel sounds, Soft Extremities: no Edema Neurological: Sensation intact Skin: no Rash Psych/Mental Status: Mood NL - Procedures Procedures: Procedures Procedure Code Date INSERT TUNNELED CV CATH [id number] 02/09/17 INSERTION OF INFUSION DEV INTO L SUBCLAV VEIN, PERC APPROACH 16F429B 02/09/17 Assessment/Plan - Problem List Patient Problems: All Active Problems NAUSEA AND VOMITING WITH DEHYDRATION (Acute) sepsis (Acute) Sepsis affecting skin (Acute) L02.91 - Assessment Assessment: * Reactive leukocytosis improving.fluctuating on antibiotics * 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 DVT proph Nutritional Asmnt/Malnutr-PDOC - Dietary Evaluation Malnutrition Findings (Please click <Entered> for more info): Nutritional Asmnt/Malnutrition Start: 02/14/17 13: 04 Text: Status: Complete Freq: Document 02/14/17 13:05 GSUN (Rec: 02/14/17 13:21 GSUN [id number]) Nutritional Asmnt/Malnutrition Patient General Information Nutritional Screening Moderate Risk Screening Pertinent Medical Hx/Surgical Hx Dx: Septic shock, hypotension, dehydration, metabolic acidosis improved, SU ?ATN, suspect aspiration PNA HTN, left knee prothesis, dyslipidemia, anemia Subjective Information 66 year old female, Ivorian speaking. Pt was receiving breathing treatment during critical access hospital visit. Observed clear liquid tray at bedside. progress note 02/13: DC NG tube and start PO as tolerated. Spoke to RN Tierra, STEFANIE stated for breakfast pt tolerated 2 juices, declined broth, RN will remove mask and encourage lunch shortly. No significant wasting noted. 02/11 KUB: mild ielus. Current Diet Order/ Nutrition Support Clear liquid Pertinent Medications Vitamin C, Lipitor, Culturelle , Solu-Medrol, Zofran, Protonix, Nacl 0.45% Pertinent Labs 02/13: potassium 3L 02/14: BUN 30H, creatinine 1.8H (declining) Nutritional Hx/Data Height 1.68 m Height (Calculated Centimeters) 167.6 Current Weight (lbs) 75.75 kg Weight (Calculated Kilograms) 75.7 Weight (Calculated Grams) [address]004.9 [place] Body Weight 130 Weight Status Overweight GI Symptoms Skin Integrity/Comment: Josias 14. Non-pitting edema bilateral feet. assessment specialist: skin tears. Estimated Nutritional Goals Calories/Kcals/Kg IBW 130lb/59.1kg Kcals Calculated 1478-1773kcal (25-30kcal/kg) Protein Calculated 59g (1g/kg) Fluid: ml 1478-1773ml (1ml/kcal) Nutritional Problem 1. Problem Problem Impaired nutrient utilization related to Etiology renal dysfunction, per MD note SU ?ATN Signs/Symptoms: BUN 30H, creatinine 1.8H Intervention/Recommendation Comments 1. Recommend advance diet as tolerated to low sodium diet, to aid in renal function. No renal restriction due to hx of hypokalemia. Expected Outcomes/Goals Expected Outcomes/Goals 1. Pt to resume diet and meet at least 75% fo estimated nutritional needs.
--- NOTE | 2017-02-26 19:52 | Infectious Disease Prog Note ---
Infectious Disease Subjective - Review of Systems Service Date: 02/26/17 Subjective: There is no new change, no fever. No more nausea and vomiting. No diarhea. Patient WBC count improved to 12k. Infectious Disease Objective - Results Result Diagrams: 02/26/17 05:26 02/26/17 05:26 Recent Labs: Laboratory Last Values WBC 12.9 Th/cmm (4.8-10.8) H D 02/26/17 05:26 Corrected WBC (auto) 52.5 Th/cmm (4.8-10.8) H* 02/19/17 09:00 RBC 3.79 Mil/cmm (3.80-5.20) L 02/26/17 05:26 Hgb 10.8 gm/dL (11.7-16.1) L 02/26/17 05:26 Hct 31.5 % (35.0-45.0) L 02/26/17 05:26 MCV 83.1 fl (81-100) 02/26/17 05:26 MCH 28.5 pg (27.0-31.0) 02/26/17 05:26 MCHC Differential 34.3 pg (28.0-36.0) 02/26/17 05:26 RDW 18.8 % (11.5-20.0) 02/26/17 05:26 Plt Count 238 Th/cmm (150-400) D 02/26/17 05:26 MPV 9.4 fl 02/26/17 05:26 Neutrophils % 84.8 % (40.0-80.0) H 02/16/17 05:00 Band Neutrophils % 2 % (0-10) 02/26/17 05:26 Lymphocytes % 10.0 % (20.0-50.0) L 02/16/17 05:00 Monocytes % 2.7 % (2.0-10.0) 02/16/17 05:00 Eosinophils % 0.1 % (0.0-5.0) 02/16/17 05:00 Basophils % 2.4 % (0.0-2.0) H 02/16/17 05:00 Neutrophils (Manual) 86 % (40-80) H 02/26/17 05:26 Lymphocytes 10 % (20-50) L 02/26/17 05:26 Monocytes 2 % (2-10) 02/26/17 05:26 Eosinophils 1 % (0-5) 02/15/17 05:00 Basophils 1 % (0-3) 02/09/17 20:27 Metamyelocytes 1 % (0-0) H 02/23/17 05:40 Nucleated RBCs 1.0 % (0-0) H 02/23/17 05:40 Atypical Lymphocytes 5 % 02/25/17 05:55 Platelet Estimate ADEQUATE (NORMAL) 02/26/17 05:26 Platelet Morphology NORMAL (NORMAL) 02/24/17 05:30 Anisocytosis 1+ 02/18/17 05:55 RBC Morph Micro Appear NORMAL (NORMAL) 02/24/17 05:30 Smear Path Review REVIEWED 02/22/17 06:15 Eos Smear Source URINE 02/14/17 17:40 Eos Smear Total Cells NONE SEEN (NONE SEEN) 02/14/17 17:40 PT 15.6 SECONDS (9.5-11.5) H 02/19/17 16:04 INR 1.47 (0.5-1.4) H 02/19/17 16:04 PTT (Actin FS) 29.9 SECONDS (26.0-38.0) 02/19/17 16:04 Specimen Source Arterial 02/26/17 09:24 Sample Site Left Radial 02/26/17 09:24 pH 7.51 (7.35-7.45) H 02/26/17 09:24 pCO2 24.0 mmHg (35.0-45.0) L* 02/26/17 09:24 pO2 73.0 mmHg (80.0-100.0) L 02/26/17 09:24 HCO3 23.1 mEq/L (20.0-26.0) 02/26/17 09:24 Base Excess -2.3 mEq/L (-3.0-3.0) 02/26/17 09:24 O2 Saturation 96.0 % (92.0-100.0) 02/26/17 09:24 Robin Test PASS 02/26/17 09:24 Vent Rate 12 02/24/17 19:30 Inspired O2 21 02/26/17 09:24 Tidal Volume NA 02/24/17 19:30 PEEP NA 02/24/17 19:30 Pressure (ins/psv/peep) NA 02/24/17 19:30 Critical Value PW 02/26/17 09:24 Sodium 142 mEq/L (136-145) 02/26/17 05:26 Potassium 3.1 mEq/L (3.5-5.1) L 02/26/17 05:26 Chloride 114 mEq/L (98-107) H 02/26/17 05:26 Carbon Dioxide 18.5 mEq/L (21.0-31.0) L 02/26/17 05:26 Anion Gap 12.6 (7.0-16.0) 02/26/17 05:26 BUN 33 mg/dL (7-25) H 02/26/17 05:26 Creatinine 1.0 mg/dL (0.6-1.2) 02/26/17 05:26 Est GFR ( Amer) > 60.0 ml/min (>90) 02/26/17 05:26 Est GFR (Non-Af Amer) 59.1 ml/min 02/26/17 05:26 BUN/Creatinine Ratio 33.0 02/26/17 05:26 Glucose 93 mg/dL (70-105) 02/26/17 05:26 POC Glucose 170 MG/DL (70 - 105) H 02/12/17 09:42 Hemoglobin A1c % 5.1 % (4.0-6.0) 02/11/17 08:11 Whole Bld Lactic Acid 1.29 mmol/L (0.60-1.99) 02/16/17 05:00 Uric Acid 11.2 mg/dL (2.3-6.6) H 02/15/17 05:00 Calcium 7.6 mg/dL (8.6-10.3) L 02/26/17 05:26 Phosphorus 3.8 mg/dL (2.5-5.0) 02/15/17 05:00 Magnesium 2.2 mg/dL (1.9-2.7) 02/19/17 05:40 Total Bilirubin 0.7 mg/dL (0.3-1.0) 02/26/17 05:35 Direct Bilirubin 0.23 mg/dL (0.0-0.2) H 02/26/17 05:35 AST 74 U/L (13-39) H 02/26/17 05:35 ALT 58 U/L (7-52) H 02/26/17 05:35 Alkaline Phosphatase 232 U/L (34-104) H 02/26/17 05:35 Creatine Kinase 67 U/L (30-223) 02/12/17 04:41 CK-MB (CK-2) 1.1 ng/mL (0.6-6.3) 02/09/17 20:27 Troponin I 0.01 ng/mL (0.01-0.05) 02/09/17 20:27 B-Natriuretic Peptide 783.0 pg/mL (5.0-100.0) H 02/24/17 05:30 Total Protein 5.3 gm/dL (6.0-8.3) L 02/26/17 05:35 Albumin 2.6 gm/dL (3.7-5.3) L 02/26/17 05:35 Globulin 2.7 gm/dL 02/26/17 05:35 Albumin/Globulin Ratio 1.0 (1.0-1.8) 02/26/17 05:35 Amylase 23 U/L (29-103) L 02/13/17 05:03 Lipase 13 U/L (11-82) 02/13/17 05:03 Urine Source ZEE PORT 02/14/17 17:40 Urine Color YELLOW 02/14/17 17:40 Urine Clarity SLIGHT HAZY (CLEAR) 02/14/17 17:40 Urine pH 5.5 02/14/17 17:40 Ur Specific [place] 1.020 (1.005-1.030) 02/14/17 17:40 Urine Protein 100 mg/dL (NEGATIVE) H 02/14/17 17:40 Urine Glucose (UA) NEGATIVE mg/dL (NEGATIVE) 02/14/17 17:40 Urine Ketones NEGATIVE mg/dL (NEGATIVE) 02/14/17 17:40 Urine Blood MODERATE (NEGATIVE) H 02/14/17 17:40 Urine Nitrate NEGATIVE (NEGATIVE) 02/14/17 17:40 Urine Bilirubin NEGATIVE (NEGATIVE) 02/14/17 17:40 Urine Urobilinogen 0.2 E.U./dL (0.2 - 1.0) 02/14/17 17:40 Ur Leukocyte Esterase NEGATIVE (NEGATIVE) 02/14/17 17:40 Urine RBC 2-5 /hpf (0-5) 02/14/17 17:40 Urine WBC 2-5 /hpf (0-5) 02/14/17 17:40 Ur Epithelial Cells FEW /lpf (FEW) 02/14/17 17:40 Amorphous Sediment MANY URATES (NONE SEEN) 02/14/17 17:40 Urine Bacteria MODERATE /hpf (NONE SEEN) 02/14/17 17:40 Hyaline Casts 0-2 /lpf (0-2) H 02/09/17 21:05 Urine Yeast FEW /hpf (NONE SEEN) H 02/14/17 17:40 Ur Random Sodium 37 mmol/L 02/14/17 17:40 Urine Creatinine 32.9 mg/dl (Not Estab.) 02/14/17 21:55 Urine Microalbumin 332.1 ug/mL (Not Estab.) 02/14/17 21:55 Microalb/Creat Ratio 1009.4 mg/g creat (0.0-30.0) H 02/14/17 21:55 Stool Leukocyte NO WBC SEEN 02/12/17 00:05 Hepatitis A IgM Ab Negative (Negative) 02/19/17 06:00 Hep Bs Antigen Negative (Negative) 02/19/17 06:00 Hep B Core IgM Ab Negative (Negative) 02/19/17 06:00 Hepatitis C Antibody 0.1 s/co ratio (0.0-0.9) 02/19/17 06:00 - Physical Exam Vitals and I&O: Vital Signs Temp 98.7 F 02/26/17 12:00 Pulse 118 02/26/17 15:36 Resp 18 02/26/17 15:36 BP 109/80 02/26/17 12:00 Pulse Ox 96 02/26/17 15:36 Intake & Output 02/26/17 02/26/17 02/27/17 06:59 18:59 06:59 Intake Total 220 100 Balance 220 100 Weight (lbs) 78.018 kg Intake: Intake, IV Amount 100 100 KCL 20mEq/100mL Premix 20 100 meq In 100 ml @ 50 mls/ hr IV Q2H [facility] Rx#: [id number] metroNIDAZOLE 500mg/NS 100 100mL 500 mg In 100 ml @ 100 mls/hr IV Q8HR [facility] Rx #:[id number] Oral 120 Active Medications: Current Medications Acetaminophen (Tylenol) 650 mg PO Q4HR PRN PRN Reason: TEMP >100 OR PAIN Stop: 04/11/17 15:21 Albuterol Sulfate (Albuterol 2.5mg/3ml Neb Ud) 2.5 mg HHN Q4HRT PRN PRN Reason: Wheezing Stop: 04/13/17 08:21 Last Admin: 02/24/17 17:10 Dose: 2.5 mg Albuterol/Ipratropium (Duoneb Neb) 3 ml HHN Q4HRT [facility] Stop: 04/25/17 18:59 Last Admin: 02/26/17 18:51 Dose: 3 ml Ascorbic Acid (Vitamin C) 500 mg PO DAILY [facility] Stop: 04/12/17 08:59 Last Admin: 02/26/17 10:14 Dose: 500 mg Atorvastatin Calcium (Lipitor) 10 mg PO HS [facility] PRN Reason: Protocol Stop: 04/11/17 20:59 Last Admin: 02/25/17 21:58 Dose: 10 mg Budesonide (Pulmicort) 0.5 mg HHN BIDRT [facility] Stop: 04/25/17 18:59 Last Admin: 02/26/17 18:51 Dose: 0.5 mg Furosemide (Lasix) 20 mg PO DAILY [facility] Stop: 04/26/17 08:59 Last Admin: 02/26/17 10:13 Dose: 20 mg Heparin Sodium (Porcine) (Heparin) 5,000 units SUBQ Q12HR [facility] Stop: 04/22/17 20:59 Last Admin: 02/26/17 10:15 Dose: 5,000 units Sodium Chloride (Nacl 0.45%) 1,000 mls @ 0 mls/hr IV .Q0M [facility] PRN Reason: KVO Stop: 04/15/17 10:13 Last Admin: 02/14/17 11:04 Dose: 10 mls/hr Megestrol Acetate (Megace) 40 mg PO DAILY [facility] PRN Reason: Protocol Stop: 04/24/17 12:59 Last Admin: 02/26/17 10:14 Dose: 40 mg Miscellaneous (Probiotic Screen) 1 ea MC PRN PRN PRN Reason: PROTOCOL Stop: 04/12/17 09:13 Miscellaneous (Clinical Monitoring) 1 ea MC DAILY PRN PRN Reason: RENAL Stop: 04/19/17 12:28 Ondansetron HCl (Zofran) 4 mg IV Q8H PRN PRN Reason: Nausea / Vomiting Stop: 04/11/17 08:23 Last Admin: 02/16/17 09:10 Dose: 4 mg Pantoprazole Sodium (Protonix) 40 mg PO DAILY [facility] Stop: 04/12/17 08:59 Last Admin: 02/26/17 10:14 Dose: 40 mg Potassium Chloride (Klor-Con) 20 meq PO DAILY [facility] Stop: 04/17/17 08:59 Last Admin: 02/26/17 10:13 Dose: 20 meq Sodium Bicarbonate (Sodium Bicarbonate) 650 mg PO BID PATRICIA PRN Reason: Protocol Stop: 04/26/17 16:59 Last Admin: 02/26/17 16:36 Dose: 650 mg Tramadol HCl (Ultram) 50 mg PO Q6HR PRN PRN Reason: Pain (Moderate) Stop: 04/26/17 16:08 Last Admin: 02/26/17 00:45 Dose: 50 mg Wound Care/Dressing Products (Therahoney) 1 appl TP DAILY [facility] Stop: 04/26/17 18:29 General: no acute distress, well developed, well nourished HEENT: atraumatic, normocephalic, PERRLA, EOMI, moist mucous membrane Neck: supple, no thyromegaly Cardiovascular: S1S2, regular Lungs: clear to auscultation bilaterally Abdomen: soft, no tender, no hepatomegaly Extremities: other (L knwee is ok.), no cyanosis, no clubbing, no edema Neurological: awake, alert, oriented Skin: intact - Procedures Procedures: Procedures Procedure Code Date INSERT TUNNELED CV CATH [id number] 02/09/17 INSERTION OF INFUSION DEV INTO L SUBCLAV VEIN, PERC APPROACH [id number] 02/09/17 Infectious Disease Assmt/Plan - Problem List Patient Problems: All Active Problems NAUSEA AND VOMITING WITH DEHYDRATION (Acute) sepsis (Acute) Sepsis affecting skin (Acute) L02.91 - Assessment Assessment: 1. Leukocytosis, without bandemia improving. ? steroid ? Sepsis ? CDAC. 2. Pneumonia. 3. H/o HTN. 4. H/o Anemia. 5. Metabolic acidosis, improved. 6. SU, ? ATN. worsening of the creatinine. 7. Small superficial leg wound at the distal end, no sign of infection. 8. CHF. 9. H/O Left TKR. no clinical sign of infection. h/o prosthesis infection, treated recently. 10. Suspect aspiration pneumonia. 11. elevated liver enzymes. 12. Suspect CDAC , as patient has very high WBC count. Recommendations: Antibiotic cheek, continue flagyl for 5 days wound care. may dc tirso cath as she is not getting HD any more. ANTONIA RN. Nutritional Asmnt/Malnutr-PDOC - Dietary Evaluation Malnutrition Findings (Please click <Entered> for more info): Nutritional Asmnt/Malnutrition Start: 02/14/17 13: 04 Text: Status: Complete Freq: Document 02/14/17 13:05 GSUN (Rec: 02/14/17 13:21 GSUN [id number]) Nutritional Asmnt/Malnutrition Patient General Information Nutritional Screening Moderate Risk Screening Pertinent Medical Hx/Surgical Hx Dx: Septic shock, hypotension, dehydration, metabolic acidosis improved, SU ?ATN, suspect aspiration PNA HTN, left knee prothesis, dyslipidemia, anemia Subjective Information 66 year old female, [place]ic speaking. Pt was receiving breathing treatment during [facility]. Observed clear liquid tray at bedside. progress note 02/13: DC NG tube and start PO as tolerated. Spoke to RN STEFANIE Mayorga stated for breakfast pt tolerated 2 juices, declined broth, RN will remove mask and encourage lunch shortly. No significant wasting noted. 02/11 KUB: mild ielus. Current Diet Order/ Nutrition Support Clear liquid Pertinent Medications Vitamin C, Lipitor, Culturelle , Solu-Medrol, Zofran, Protonix, Nacl 0.45% Pertinent Labs 02/13: potassium 3L 02/14: BUN 30H, creatinine 1.8H (declining) Nutritional Hx/Data Height 1.68 m Height (Calculated Centimeters) 167.6 Current Weight (lbs) 75.75 kg Weight (Calculated Kilograms) 75.7 Weight (Calculated Grams) 60649.9 [place] Body Weight 130 Weight Status Overweight GI Symptoms Skin Integrity/Comment: Josias 14. Non-pitting edema bilateral feet. 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 Estimated Nutritional Goals Calories/Kcals/Kg IBW 130lb/59.1kg Kcals Calculated 1478-1773kcal (25-30kcal/kg) Protein Calculated 59g (1g/kg) Fluid: ml 1478-1773ml (1ml/kcal) Nutritional Problem 1. Problem Problem Impaired nutrient utilization related to Etiology renal dysfunction, per MD note SU ?ATN Signs/Symptoms: BUN 30H, creatinine 1.8H Intervention/Recommendation Comments 1. Recommend advance diet as tolerated to low sodium diet, to aid in renal function. No renal restriction due to hx of hypokalemia. Expected Outcomes/Goals Expected Outcomes/Goals 1. Pt to resume diet and meet at least 75% fo estimated nutritional needs.
[2017-02-26] MEDS ORDERED: Diltiazem 5 mg/mL 5mL Vial IVP ONE (20:34)
[2017-02-26] MEDS: Sodium Chloride 0.9% 1,000 ML IV SCH (20:45)
[2017-02-26] MEDS: Atorvastatin Calcium 10 MG TAB PO SCH (22:04)
[2017-02-27] MEDS: Albuterol/Ipratropium Neb 3 ML AERS HHN SCH ×6 (03:19→22:46)
[2017-02-27 06:32] LABS: HEMOGLOBIN 11.3 gm/dL (11.7-16.1); MEAN CELL VOLUME 83.5 fl (81-100); MEAN CORPUSCULAR HEMOGLOBIN 28.6 pg (27.0-31.0); MEAN CORPUSCULAR HGB CONC 34.3 pg (28.0-36.0); MEAN PLATELET VOLUME 9.2 fl; PLATELET COUNT 213 Th/cmm (150-400); RED BLOOD COUNT 3.95 Mil/cmm (3.80-5.20); RED CELL DISTRIBUTION WIDTH 18.8 % (11.5-20.0)
[2017-02-27 06:36] LABS: WHITE BLOOD COUNT 14.7 Th/cmm (4.8-10.8)
[2017-02-27 06:56] LABS: ANION GAP 11.6 (7.0-16.0); BUN - UREA NITROGEN 31 mg/dL (7-25); BUN/CREATININE RATIO 34.4; CALCIUM SERUM 8.4 mg/dL (8.6-10.3); CARBON DIOXIDE 19.5 mEq/L (21.0-31.0); CHLORIDE 110 mEq/L (98-107); CREATININE - SERUM 0.9 mg/dL (0.6-1.2); GLUCOSE 104 mg/dL (70-105); MAGNESIUM 1.4 mg/dL (1.9-2.7); POTASSIUM SERUM 4.1 mEq/L (3.5-5.1); SODIUM SERUM 137 mEq/L (136-145)
[2017-02-27 07:04] LABS: TOTAL CELLS COUNTED 100
[2017-02-27 07:05] LABS: BAND NEUTROPHILE 4 % (0-10); NEUTROPHILS 80 % (40-80); PLATELET ESTIMATE ADEQUATE (NORMAL)
[2017-02-27] MEDS: Budesonide 0.5 Mg/2 mL Ud HHN SCH ×2 (07:24→18:58)
[2017-02-27] MEDS: Pantoprazole 40 mg EC Tab PO SCH (09:28)
[2017-02-27] MEDS: Multivitamin w/ Minerals Tab PO SCH (09:28)
[2017-02-27] MEDS: Potassium Chloride 20 mEq ER Tab PO SCH (09:28)
[2017-02-27] MEDS: Therahoney Gel 42.5gm Tube TP SCH (09:36)
--- NOTE | 2017-02-27 10:28 | General Progress Note ---
Subjective - Review of Systems Service Date: 02/27/17 Subjective: More awake, verbal, mild tachypnea, poor appetite Objective - Results Result Diagrams: 02/27/17 06:20 02/27/17 06:20 Recent Labs: Laboratory Last Values WBC 14.7 Th/cmm (4.8-10.8) H 02/27/17 06:20 Corrected WBC (auto) 52.5 Th/cmm (4.8-10.8) H* 02/19/17 09:00 RBC 3.95 Mil/cmm (3.80-5.20) 02/27/17 06:20 Hgb 11.3 gm/dL (11.7-16.1) L 02/27/17 06:20 Hct 33.0 % (35.0-45.0) L 02/27/17 06:20 MCV 83.5 fl (81-100) 02/27/17 06:20 MCH 28.6 pg (27.0-31.0) 02/27/17 06:20 MCHC Differential 34.3 pg (28.0-36.0) 02/27/17 06:20 RDW 18.8 % (11.5-20.0) 02/27/17 06:20 Plt Count 213 Th/cmm (150-400) 02/27/17 06:20 MPV 9.2 fl 02/27/17 06:20 Neutrophils % 84.8 % (40.0-80.0) H 02/16/17 05:00 Band Neutrophils % 4 % (0-10) 02/27/17 06:20 Lymphocytes % 10.0 % (20.0-50.0) L 02/16/17 05:00 Monocytes % 2.7 % (2.0-10.0) 02/16/17 05:00 Eosinophils % 0.1 % (0.0-5.0) 02/16/17 05:00 Basophils % 2.4 % (0.0-2.0) H 02/16/17 05:00 Neutrophils (Manual) 80 % (40-80) 02/27/17 06:20 Lymphocytes 10 % (20-50) L 02/27/17 06:20 Monocytes 6 % (2-10) 02/27/17 06:20 Eosinophils 1 % (0-5) 02/15/17 05:00 Basophils 1 % (0-3) 02/09/17 20:27 Metamyelocytes 1 % (0-0) H 02/23/17 05:40 Nucleated RBCs 1.0 % (0-0) H 02/23/17 05:40 Atypical Lymphocytes 5 % 02/25/17 05:55 Platelet Estimate ADEQUATE (NORMAL) 02/27/17 06:20 Platelet Morphology NORMAL (NORMAL) 02/24/17 05:30 Anisocytosis 1+ 02/18/17 05:55 RBC Morph Micro Appear NORMAL (NORMAL) 02/24/17 05:30 Smear Path Review REVIEWED 02/22/17 06:15 Eos Smear Source URINE 02/14/17 17:40 Eos Smear Total Cells NONE SEEN (NONE SEEN) 02/14/17 17:40 PT 15.6 SECONDS (9.5-11.5) H 02/19/17 16:04 INR 1.47 (0.5-1.4) H 02/19/17 16:04 PTT (Actin FS) 29.9 SECONDS (26.0-38.0) 02/19/17 16:04 Specimen Source Arterial 02/26/17 09:24 Sample Site Left Radial 02/26/17 09:24 pH 7.51 (7.35-7.45) H 02/26/17 09:24 pCO2 24.0 mmHg (35.0-45.0) L* 02/26/17 09:24 pO2 73.0 mmHg (80.0-100.0) L 02/26/17 09:24 HCO3 23.1 mEq/L (20.0-26.0) 02/26/17 09:24 Base Excess -2.3 mEq/L (-3.0-3.0) 02/26/17 09:24 O2 Saturation 96.0 % (92.0-100.0) 02/26/17 09:24 Robin Test PASS 02/26/17 09:24 Vent Rate 12 02/24/17 19:30 Inspired O2 21 02/26/17 09:24 Tidal Volume NA 02/24/17 19:30 PEEP NA 02/24/17 19:30 Pressure (ins/psv/peep) NA 02/24/17 19:30 Critical Value PW 02/26/17 09:24 Sodium 137 mEq/L (136-145) 02/27/17 06:20 Potassium 4.1 mEq/L (3.5-5.1) 02/27/17 06:20 Chloride 110 mEq/L (98-107) H 02/27/17 06:20 Carbon Dioxide 19.5 mEq/L (21.0-31.0) L 02/27/17 06:20 Anion Gap 11.6 (7.0-16.0) 02/27/17 06:20 BUN 31 mg/dL (7-25) H 02/27/17 06:20 Creatinine 0.9 mg/dL (0.6-1.2) 02/27/17 06:20 Est GFR ( Amer) > 60.0 ml/min (>90) 02/27/17 06:20 Est GFR (Non-Af Amer) > 60.0 ml/min 02/27/17 06:20 BUN/Creatinine Ratio 34.4 02/27/17 06:20 Glucose 104 mg/dL (70-105) 02/27/17 06:20 POC Glucose 170 MG/DL (70 - 105) H 02/12/17 09:42 Hemoglobin A1c % 5.1 % (4.0-6.0) 02/11/17 08:11 Whole Bld Lactic Acid 1.29 mmol/L (0.60-1.99) 02/16/17 05:00 Uric Acid 11.2 mg/dL (2.3-6.6) H 02/15/17 05:00 Calcium 8.4 mg/dL (8.6-10.3) L 02/27/17 06:20 Phosphorus 3.8 mg/dL (2.5-5.0) 02/15/17 05:00 Magnesium 1.4 mg/dL (1.9-2.7) L 02/27/17 06:20 Total Bilirubin 0.7 mg/dL (0.3-1.0) 02/26/17 05:35 Direct Bilirubin 0.23 mg/dL (0.0-0.2) H 02/26/17 05:35 AST 74 U/L (13-39) H 02/26/17 05:35 ALT 58 U/L (7-52) H 02/26/17 05:35 Alkaline Phosphatase 232 U/L (34-104) H 02/26/17 05:35 Creatine Kinase 67 U/L (30-223) 02/12/17 04:41 CK-MB (CK-2) 1.1 ng/mL (0.6-6.3) 02/09/17 20:27 Troponin I 0.01 ng/mL (0.01-0.05) 02/09/17 20:27 B-Natriuretic Peptide 783.0 pg/mL (5.0-100.0) H 02/24/17 05:30 Total Protein 5.3 gm/dL (6.0-8.3) L 02/26/17 05:35 Albumin 2.6 gm/dL (3.7-5.3) L 02/26/17 05:35 Globulin 2.7 gm/dL 02/26/17 05:35 Albumin/Globulin Ratio 1.0 (1.0-1.8) 02/26/17 05:35 Amylase 23 U/L (29-103) L 02/13/17 05:03 Lipase 13 U/L (11-82) 02/13/17 05:03 Urine Source [place] 02/14/17 17:40 Urine Color YELLOW 02/14/17 17:40 Urine Clarity SLIGHT HAZY (CLEAR) 02/14/17 17:40 Urine pH 5.5 02/14/17 17:40 Ur Specific [place] 1.020 (1.005-1.030) 02/14/17 17:40 Urine Protein 100 mg/dL (NEGATIVE) H 02/14/17 17:40 Urine Glucose (UA) NEGATIVE mg/dL (NEGATIVE) 02/14/17 17:40 Urine Ketones NEGATIVE mg/dL (NEGATIVE) 02/14/17 17:40 Urine Blood MODERATE (NEGATIVE) H 02/14/17 17:40 Urine Nitrate NEGATIVE (NEGATIVE) 02/14/17 17:40 Urine Bilirubin NEGATIVE (NEGATIVE) 02/14/17 17:40 Urine Urobilinogen 0.2 E.U./dL (0.2 - 1.0) 02/14/17 17:40 Ur Leukocyte Esterase NEGATIVE (NEGATIVE) 02/14/17 17:40 Urine RBC 2-5 /hpf (0-5) 02/14/17 17:40 Urine WBC 2-5 /hpf (0-5) 02/14/17 17:40 Ur Epithelial Cells FEW /lpf (FEW) 02/14/17 17:40 Amorphous Sediment MANY URATES (NONE SEEN) 02/14/17 17:40 Urine Bacteria MODERATE /hpf (NONE SEEN) 02/14/17 17:40 Hyaline Casts 0-2 /lpf (0-2) H 02/09/17 21:05 Urine Yeast FEW /hpf (NONE SEEN) H 02/14/17 17:40 Ur Random Sodium 37 mmol/L 02/14/17 17:40 Urine Creatinine 32.9 mg/dl (Not Estab.) 02/14/17 21:55 Urine Microalbumin 332.1 ug/mL (Not Estab.) 02/14/17 21:55 Microalb/Creat Ratio 1009.4 mg/g creat (0.0-30.0) H 02/14/17 21:55 Stool Leukocyte NO WBC SEEN 02/12/17 00:05 Hepatitis A IgM Ab Negative (Negative) 02/19/17 06:00 Hep Bs Antigen Negative (Negative) 02/19/17 06:00 Hep B Core IgM Ab Negative (Negative) 02/19/17 06:00 Hepatitis C Antibody 0.1 s/co ratio (0.0-0.9) 02/19/17 06:00 - Physical Exam Vitals and I&O: Vital Signs Temp 98.2 F 02/27/17 08:00 Pulse 125 02/27/17 08:00 Resp 20 02/27/17 08:00 BP 90/69 02/27/17 09:37 Pulse Ox 96 02/27/17 08:00 Intake & Output 02/26/17 02/27/17 02/27/17 18:59 06:59 18:59 Intake Total 100 480 Balance 100 480 Weight (lbs) 78.154 kg Intake: Intake, IV Amount 100 KCL 20mEq/100mL Premix 20 100 meq In 100 ml @ 50 mls/ hr IV Q2H [facility] Rx#: [id number] Oral 480 Other: # Voids 1 # Bowel Movements 1 Stool Characteristics Soft Active Medications: Current Medications Acetaminophen (Tylenol) 650 mg PO Q4HR PRN PRN Reason: TEMP >100 OR PAIN Stop: 04/11/17 15:21 Albuterol Sulfate (Albuterol 2.5mg/3ml Neb Ud) 2.5 mg HHN Q4HRT PRN PRN Reason: Wheezing Stop: 04/13/17 08:21 Last Admin: 02/24/17 17:10 Dose: 2.5 mg Albuterol/Ipratropium (Duoneb Neb) 3 ml HHN Q4HRT PATRICIA Stop: 04/25/17 18:59 Last Admin: 02/27/17 07:24 Dose: 3 ml Ascorbic Acid (Vitamin C) 500 mg PO DAILY PATRICIA Stop: 04/12/17 08:59 Last Admin: 02/27/17 09:28 Dose: 500 mg Atorvastatin Calcium (Lipitor) 10 mg PO HS PATRICIA PRN Reason: Protocol Stop: 04/11/17 20:59 Last Admin: 02/26/17 22:04 Dose: 10 mg Budesonide (Pulmicort) 0.5 mg HHN BIDRT PATRICIA Stop: 04/25/17 18:59 Last Admin: 02/27/17 07:24 Dose: 0.5 mg Furosemide (Lasix) 20 mg PO DAILY PATRICIA Stop: 04/26/17 08:59 Last Admin: 02/27/17 09:37 Dose: 20 mg Heparin Sodium (Porcine) (Heparin) 5,000 units SUBQ Q12HR PATRICIA Stop: 04/22/17 20:59 Last Admin: 02/27/17 09:27 Dose: 5,000 units Sodium Chloride (Nacl 0.45%) 1,000 mls @ 0 mls/hr IV .Q0M PATRICIA PRN Reason: KVO Stop: 04/15/17 10:13 Last Admin: 02/14/17 11:04 Dose: 10 mls/hr Sodium Chloride (Nacl 0.9%) 1,000 mls @ 100 mls/hr IV .Q10H PATRICIA Stop: 04/27/17 20:30 Last Admin: 02/26/17 20:45 Dose: 100 mls/hr Megestrol Acetate (Megace) 40 mg PO DAILY PATRICIA PRN Reason: Protocol Stop: 04/24/17 12:59 Last Admin: 02/27/17 09:27 Dose: 40 mg Miscellaneous (Probiotic Screen) 1 ea MC PRN PRN PRN Reason: PROTOCOL Stop: 04/12/17 09:13 Miscellaneous (Clinical Monitoring) 1 ea MC DAILY PRN PRN Reason: RENAL Stop: 04/19/17 12:28 Ondansetron HCl (Zofran) 4 mg IV Q8H PRN PRN Reason: Nausea / Vomiting Stop: 04/11/17 08:23 Last Admin: 02/16/17 09:10 Dose: 4 mg Pantoprazole Sodium (Protonix) 40 mg PO DAILY [facility] Stop: 04/12/17 08:59 Last Admin: 02/27/17 09:28 Dose: 40 mg Potassium Chloride (Klor-Con) 20 meq PO DAILY [facility] Stop: 04/17/17 08:59 Last Admin: 02/27/17 09:28 Dose: 20 meq Sodium Bicarbonate (Sodium Bicarbonate) 650 mg PO BID PATRICIA PRN Reason: Protocol Stop: 04/26/17 16:59 Last Admin: 02/27/17 09:28 Dose: 650 mg Tramadol HCl (Ultram) 50 mg PO Q6HR PRN PRN Reason: Pain (Moderate) Stop: 04/26/17 16:08 Last Admin: 02/26/17 00:45 Dose: 50 mg Wound Care/Dressing Products (Therahoney) 1 appl TP DAILY [facility] Stop: 04/26/17 18:29 Last Admin: 02/27/17 09:36 Dose: 1 appl General: Alert, Mild distress HEENT: Atraumatic, PERRLA, EOMI, Mucous membr. moist/pink Neck: Supple, +2 carotid pulse wo bruit Cardiovascular: Regular rate, Normal S1, Normal S2 Lungs: Other (few rhonchi) Abdomen: Bowel sounds, Soft Extremities: no Edema Neurological: Sensation intact Skin: no Rash Psych/Mental Status: Mood NL - Procedures Procedures: Procedures Procedure Code Date INSERT TUNNELED CV CATH 07255 02/09/17 INSERTION OF INFUSION DEV INTO L SUBCLAV VEIN, PERC APPROACH [id number] 02/09/17 Assessment/Plan - Problem List Patient Problems: All Active Problems NAUSEA AND VOMITING WITH DEHYDRATION (Acute) sepsis (Acute) Sepsis affecting skin (Acute) L02.91 - Assessment Assessment: Acute kidney injury secondary to acute tubular injury Fractional excretion of sodium is 1.1% suggestive of intrinsic renal failure Shock secondary to sepsis Distended gallbladder with normal acute cholecystitis Abdominal pain secondary to ileus Ileus secondary to sepsis Acute decompensation of systolic congestive heart failure(EJF 15-20%) Respiratory failure secondary to aspiration pneumonia/CHF Anemia of chronic kidney disease Dyslipidemia Status post Infected prosthesis left knee, status post I&D respiratory alkalosis Sepsis secondary to aspiration pneumonia Worsening liver enzymes due to sepsis, medications, hypotension Acalculous Cholecystitis - Plan Plan: Lab - Result Diagrams 02/15/17 05:00 02/15/17 05:00 Current Medications Acetaminophen (Tylenol) 650 mg PO Q4HR PRN PRN Reason: TEMP >100 OR PAIN Stop: 04/11/17 15:21 Acetaminophen/Codeine Phosphate (Tylenol W/Codeine #3) 1 tab PO Q6HR PRN PRN Reason: MODERATE PAIN Stop: 04/11/17 15:21 Last Admin: 02/14/17 02:08 Dose: 1 tab Acetaminophen/Hydrocodone Bitart ([place] 5mg/325mg) 2 tab PO Q4H PRN PRN Reason: Severe Pain Stop: 04/11/17 15:21 Last Admin: 02/15/17 00:06 Dose: 2 tab Albuterol Sulfate (Albuterol 2.5mg/3ml Neb Ud) 2.5 mg HHN Q4HRT PRN PRN Reason: Wheezing Stop: 04/13/17 08:21 Last Admin: 02/14/17 15:54 Dose: 2.5 mg Ascorbic Acid (Vitamin C) 500 mg PO DAILY PATRICIA Stop: 04/12/17 08:59 Last Admin: 02/15/17 09:33 Dose: 500 mg Atorvastatin Calcium (Lipitor) 10 mg PO HS PATRICIA PRN Reason: Protocol Stop: 04/11/17 20:59 Last Admin: 02/14/17 20:49 Dose: 10 mg Furosemide (Lasix) 40 mg IVP BID PATRICIA Stop: 04/14/17 08:59 Last Admin: 02/15/17 09:33 Dose: 40 mg Piperacillin Sod/Tazobactam (Sod 4.5 gm/ Sodium Chloride) 100 mls @ 100 mls/hr IV Q8HR PATRICIA Stop: 04/11/17 13:59 Last Admin: 02/15/17 05:23 Dose: 100 mls/hr Norepinephrine Bitartrate 8 mg (/ Dextrose) 258 mls @ 77.4 mls/hr IV TITR PRN; Protocol; 40 MCG/MIN PRN Reason: BP MAINTENANCE (PER PROTOCOL) Stop: 04/12/17 07:46 Last Admin: 02/15/17 01:45 Dose: 5.16 mcg/min, 9.98 mls/hr Diltiazem HCl 125 mg/ Dextrose 125 mls @ 10 mls/hr IV TITR PATRICIA; 10 MG/HR PRN Reason: Protocol Stop: 04/15/17 04:29 Last Titration: 02/15/17 10:18 Dose: Infused Sodium Chloride (Nacl 0.45%) 1,000 mls @ 0 mls/hr IV .Q0M PATRICIA PRN Reason: KVO Stop: 04/15/17 10:13 Last Admin: 02/14/17 11:04 Dose: 10 mls/hr Lactobacillus Rhamnosus (Culturelle) 1 each PO DAILY PATRICIA Stop: 04/13/17 08:59 Last Admin: 02/15/17 09:33 Dose: 1 each Methylprednisolone Sodium Succinate (Solu-Medrol) 20 mg IVP Q8HR PATRICIA Stop: 04/14/17 12:59 Last Admin: 02/15/17 05:23 Dose: 20 mg Miscellaneous (Probiotic Screen) 1 ea MC PRN PRN PRN Reason: PROTOCOL Stop: 04/12/17 09:13 Ondansetron HCl (Zofran) 4 mg IV Q8H PRN PRN Reason: Nausea / Vomiting Stop: 04/11/17 08:23 Last Admin: 02/12/17 00:59 Dose: 4 mg Pantoprazole Sodium (Protonix) 40 mg PO DAILY PATRICIA Stop: 04/12/17 08:59 Last Admin: 02/15/17 09:32 Dose: 40 mg Kidney function better with a BUN/creatinine of 31/0.9, off dialysis, close to baseline Chest x-ray left PNA, but no anayeli CHF Continue gentle diuresis Off Levophed Monitor electrolytes and CBC along with chest x-ray Replace potassium and magnesium White count down to 14.7 Liver enzymes slightly improved Echo revealed ejection fraction 15-20% with RVSP of 24.5, consider AICD, Bivent pacer On Zosyn agree w/ K replacement Nutritional Asmnt/Malnutr-PDOC - Dietary Evaluation Malnutrition Findings (Please click <Entered> for more info): Nutritional Asmnt/Malnutrition Start: 02/14/17 13: 04 Text: Status: Complete Freq: Document 02/14/17 13:05 GSUN (Rec: 02/14/17 13:21 GSUN [id number]) Nutritional Asmnt/Malnutrition Patient General Information Nutritional Screening Moderate Risk Screening Pertinent Medical Hx/Surgical Hx Dx: Septic shock, hypotension, dehydration, metabolic acidosis improved, SU ?ATN, suspect aspiration PNA HTN, left knee prothesis, dyslipidemia, anemia Subjective Information 66 year old female, Bangladeshi speaking. Pt was receiving breathing treatment during [facility] visit. Observed clear liquid tray at bedside. progress note 02/13: DC NG tube and start PO as tolerated. Spoke to RN STEFANIE Mayorga stated for breakfast pt tolerated 2 juices, declined broth, RN will remove mask and encourage lunch shortly. No significant wasting noted. 02/11 KUB: mild ielus. Current Diet Order/ Nutrition Support Clear liquid Pertinent Medications Vitamin C, Lipitor, Culturelle , Solu-Medrol, Zofran, Protonix, Nacl 0.45% Pertinent Labs 02/13: potassium 3L 02/14: BUN 30H, creatinine 1.8H (declining) Nutritional Hx/Data Height 1.68 m Height (Calculated Centimeters) 167.6 Current Weight (lbs) 75.75 kg Weight (Calculated Kilograms) 75.7 Weight (Calculated Grams) 82496.9 [place] Body Weight 130 Weight Status Overweight GI Symptoms Skin Integrity/Comment: Josias 14. Non-pitting edema bilateral feet. fur tanner: skin tears. Estimated Nutritional Goals Calories/Kcals/Kg IBW 130lb/59.1kg Kcals Calculated 1478-1773kcal (25-30kcal/kg) Protein Calculated 59g (1g/kg) Fluid: ml 1478-1773ml (1ml/kcal) Nutritional Problem 1. Problem Problem Impaired nutrient utilization related to Etiology renal dysfunction, per MD note SU ?ATN Signs/Symptoms: BUN 30H, creatinine 1.8H Intervention/Recommendation Comments 1. Recommend advance diet as tolerated to low sodium diet, to aid in renal function. No renal restriction due to hx of hypokalemia. Expected Outcomes/Goals Expected Outcomes/Goals 1. Pt to resume diet and meet at least 75% fo estimated nutritional needs.
--- NOTE | 2017-02-27 12:28 | General Progress Note ---
Subjective - Review of Systems Events since last encounter: more awake poor appetite Subjective: pt is awake denies any pain pt states she in comfortable Objective - Results Result Diagrams: 02/27/17 06:20 02/27/17 06:20 Recent Labs: Laboratory Last Values WBC 14.7 Th/cmm (4.8-10.8) H 02/27/17 06:20 Corrected WBC (auto) 52.5 Th/cmm (4.8-10.8) H* 02/19/17 09:00 RBC 3.95 Mil/cmm (3.80-5.20) 02/27/17 06:20 Hgb 11.3 gm/dL (11.7-16.1) L 02/27/17 06:20 Hct 33.0 % (35.0-45.0) L 02/27/17 06:20 MCV 83.5 fl (81-100) 02/27/17 06:20 MCH 28.6 pg (27.0-31.0) 02/27/17 06:20 MCHC Differential 34.3 pg (28.0-36.0) 02/27/17 06:20 RDW 18.8 % (11.5-20.0) 02/27/17 06:20 Plt Count 213 Th/cmm (150-400) 02/27/17 06:20 MPV 9.2 fl 02/27/17 06:20 Neutrophils % 84.8 % (40.0-80.0) H 02/16/17 05:00 Band Neutrophils % 4 % (0-10) 02/27/17 06:20 Lymphocytes % 10.0 % (20.0-50.0) L 02/16/17 05:00 Monocytes % 2.7 % (2.0-10.0) 02/16/17 05:00 Eosinophils % 0.1 % (0.0-5.0) 02/16/17 05:00 Basophils % 2.4 % (0.0-2.0) H 02/16/17 05:00 Neutrophils (Manual) 80 % (40-80) 02/27/17 06:20 Lymphocytes 10 % (20-50) L 02/27/17 06:20 Monocytes 6 % (2-10) 02/27/17 06:20 Eosinophils 1 % (0-5) 02/15/17 05:00 Basophils 1 % (0-3) 02/09/17 20:27 Metamyelocytes 1 % (0-0) H 02/23/17 05:40 Nucleated RBCs 1.0 % (0-0) H 02/23/17 05:40 Atypical Lymphocytes 5 % 02/25/17 05:55 Platelet Estimate ADEQUATE (NORMAL) 02/27/17 06:20 Platelet Morphology NORMAL (NORMAL) 02/24/17 05:30 Anisocytosis 1+ 02/18/17 05:55 RBC Morph Micro Appear NORMAL (NORMAL) 02/24/17 05:30 Smear Path Review REVIEWED 02/22/17 06:15 Eos Smear Source URINE 02/14/17 17:40 Eos Smear Total Cells NONE SEEN (NONE SEEN) 02/14/17 17:40 PT 15.6 SECONDS (9.5-11.5) H 02/19/17 16:04 INR 1.47 (0.5-1.4) H 02/19/17 16:04 PTT (Actin FS) 29.9 SECONDS (26.0-38.0) 02/19/17 16:04 Specimen Source Arterial 02/26/17 09:24 Sample Site Left Radial 02/26/17 09:24 pH 7.51 (7.35-7.45) H 02/26/17 09:24 pCO2 24.0 mmHg (35.0-45.0) L* 02/26/17 09:24 pO2 73.0 mmHg (80.0-100.0) L 02/26/17 09:24 HCO3 23.1 mEq/L (20.0-26.0) 02/26/17 09:24 Base Excess -2.3 mEq/L (-3.0-3.0) 02/26/17 09:24 O2 Saturation 96.0 % (92.0-100.0) 02/26/17 09:24 Robin Test PASS 02/26/17 09:24 Vent Rate 12 02/24/17 19:30 Inspired O2 21 02/26/17 09:24 Tidal Volume NA 02/24/17 19:30 PEEP NA 02/24/17 19:30 Pressure (ins/psv/peep) NA 02/24/17 19:30 Critical Value PW 02/26/17 09:24 Sodium 137 mEq/L (136-145) 02/27/17 06:20 Potassium 4.1 mEq/L (3.5-5.1) 02/27/17 06:20 Chloride 110 mEq/L (98-107) H 02/27/17 06:20 Carbon Dioxide 19.5 mEq/L (21.0-31.0) L 02/27/17 06:20 Anion Gap 11.6 (7.0-16.0) 02/27/17 06:20 BUN 31 mg/dL (7-25) H 02/27/17 06:20 Creatinine 0.9 mg/dL (0.6-1.2) 02/27/17 06:20 Est GFR ( Amer) > 60.0 ml/min (>90) 02/27/17 06:20 Est GFR (Non-Af Amer) > 60.0 ml/min 02/27/17 06:20 BUN/Creatinine Ratio 34.4 02/27/17 06:20 Glucose 104 mg/dL (70-105) 02/27/17 06:20 POC Glucose 170 MG/DL (70 - 105) H 02/12/17 09:42 Hemoglobin A1c % 5.1 % (4.0-6.0) 02/11/17 08:11 Whole Bld Lactic Acid 1.29 mmol/L (0.60-1.99) 02/16/17 05:00 Uric Acid 11.2 mg/dL (2.3-6.6) H 02/15/17 05:00 Calcium 8.4 mg/dL (8.6-10.3) L 02/27/17 06:20 Phosphorus 3.8 mg/dL (2.5-5.0) 02/15/17 05:00 Magnesium 1.4 mg/dL (1.9-2.7) L 02/27/17 06:20 Total Bilirubin 0.7 mg/dL (0.3-1.0) 02/26/17 05:35 Direct Bilirubin 0.23 mg/dL (0.0-0.2) H 02/26/17 05:35 AST 74 U/L (13-39) H 02/26/17 05:35 ALT 58 U/L (7-52) H 02/26/17 05:35 Alkaline Phosphatase 232 U/L (34-104) H 02/26/17 05:35 Creatine Kinase 67 U/L (30-223) 02/12/17 04:41 CK-MB (CK-2) 1.1 ng/mL (0.6-6.3) 02/09/17 20:27 Troponin I 0.01 ng/mL (0.01-0.05) 02/09/17 20:27 B-Natriuretic Peptide 783.0 pg/mL (5.0-100.0) H 02/24/17 05:30 Total Protein 5.3 gm/dL (6.0-8.3) L 02/26/17 05:35 Albumin 2.6 gm/dL (3.7-5.3) L 02/26/17 05:35 Globulin 2.7 gm/dL 02/26/17 05:35 Albumin/Globulin Ratio 1.0 (1.0-1.8) 02/26/17 05:35 Amylase 23 U/L (29-103) L 02/13/17 05:03 Lipase 13 U/L (11-82) 02/13/17 05:03 Urine Source ZEE PORT 02/14/17 17:40 Urine Color YELLOW 02/14/17 17:40 Urine Clarity SLIGHT HAZY (CLEAR) 02/14/17 17:40 Urine pH 5.5 02/14/17 17:40 Ur Specific [place] 1.020 (1.005-1.030) 02/14/17 17:40 Urine Protein 100 mg/dL (NEGATIVE) H 02/14/17 17:40 Urine Glucose (UA) NEGATIVE mg/dL (NEGATIVE) 02/14/17 17:40 Urine Ketones NEGATIVE mg/dL (NEGATIVE) 02/14/17 17:40 Urine Blood MODERATE (NEGATIVE) H 02/14/17 17:40 Urine Nitrate NEGATIVE (NEGATIVE) 02/14/17 17:40 Urine Bilirubin NEGATIVE (NEGATIVE) 02/14/17 17:40 Urine Urobilinogen 0.2 E.U./dL (0.2 - 1.0) 02/14/17 17:40 Ur Leukocyte Esterase NEGATIVE (NEGATIVE) 02/14/17 17:40 Urine RBC 2-5 /hpf (0-5) 02/14/17 17:40 Urine WBC 2-5 /hpf (0-5) 02/14/17 17:40 Ur Epithelial Cells FEW /lpf (FEW) 02/14/17 17:40 Amorphous Sediment MANY URATES (NONE SEEN) 02/14/17 17:40 Urine Bacteria MODERATE /hpf (NONE SEEN) 02/14/17 17:40 Hyaline Casts 0-2 /lpf (0-2) H 02/09/17 21:05 Urine Yeast FEW /hpf (NONE SEEN) H 02/14/17 17:40 Ur Random Sodium 37 mmol/L 02/14/17 17:40 Urine Creatinine 32.9 mg/dl (Not Estab.) 02/14/17 21:55 Urine Microalbumin 332.1 ug/mL (Not Estab.) 02/14/17 21:55 Microalb/Creat Ratio 1009.4 mg/g creat (0.0-30.0) H 02/14/17 21:55 Stool Leukocyte NO WBC SEEN 02/12/17 00:05 Hepatitis A IgM Ab Negative (Negative) 02/19/17 06:00 Hep Bs Antigen Negative (Negative) 02/19/17 06:00 Hep B Core IgM Ab Negative (Negative) 02/19/17 06:00 Hepatitis C Antibody 0.1 s/co ratio (0.0-0.9) 02/19/17 06:00 - Physical Exam Vitals and I&O: Vital Signs Temp 98.2 F 02/27/17 08:00 Pulse 119 02/27/17 11:23 Resp 20 02/27/17 11:23 BP 90/69 02/27/17 09:37 Pulse Ox 98 02/27/17 11:23 Intake & Output 02/26/17 02/27/17 02/27/17 18:59 06:59 18:59 Intake Total 100 480 Balance 100 480 Weight (lbs) 78.154 kg Intake: Intake, IV Amount 100 KCL 20mEq/100mL Premix 20 100 meq In 100 ml @ 50 mls/ hr IV Q2H [facility] Rx#: [id number] Oral 480 Other: # Voids 1 # Bowel Movements 1 Stool Characteristics Soft Active Medications: Current Medications Acetaminophen (Tylenol) 650 mg PO Q4HR PRN PRN Reason: TEMP >100 OR PAIN Stop: 04/11/17 15:21 Albuterol Sulfate (Albuterol 2.5mg/3ml Neb Ud) 2.5 mg HHN Q4HRT PRN PRN Reason: Wheezing Stop: 04/13/17 08:21 Last Admin: 02/24/17 17:10 Dose: 2.5 mg Albuterol/Ipratropium (Duoneb Neb) 3 ml HHN Q4HRT [facility] Stop: 04/25/17 18:59 Last Admin: 02/27/17 11:21 Dose: 3 ml Ascorbic Acid (Vitamin C) 500 mg PO DAILY [facility] Stop: 04/12/17 08:59 Last Admin: 02/27/17 09:28 Dose: 500 mg Atorvastatin Calcium (Lipitor) 10 mg PO HS [facility] PRN Reason: Protocol Stop: 04/11/17 20:59 Last Admin: 02/26/17 22:04 Dose: 10 mg Budesonide (Pulmicort) 0.5 mg HHN BIDRT [facility] Stop: 04/25/17 18:59 Last Admin: 02/27/17 07:24 Dose: 0.5 mg Furosemide (Lasix) 20 mg PO DAILY [facility] Stop: 04/26/17 08:59 Last Admin: 02/27/17 09:37 Dose: 20 mg Heparin Sodium (Porcine) (Heparin) 5,000 units SUBQ Q12HR [facility] Stop: 04/22/17 20:59 Last Admin: 02/27/17 09:27 Dose: 5,000 units Sodium Chloride (Nacl 0.45%) 1,000 mls @ 0 mls/hr IV .Q0M [facility] PRN Reason: KVO Stop: 04/15/17 10:13 Last Admin: 02/14/17 11:04 Dose: 10 mls/hr Sodium Chloride (Nacl 0.9%) 1,000 mls @ 100 mls/hr IV .Q10H [facility] Stop: 04/27/17 20:30 Last Admin: 02/26/17 20:45 Dose: 100 mls/hr Megestrol Acetate (Megace) 40 mg PO DAILY [facility] PRN Reason: Protocol Stop: 04/24/17 12:59 Last Admin: 02/27/17 09:27 Dose: 40 mg Miscellaneous (Probiotic Screen) 1 ea MC PRN PRN PRN Reason: PROTOCOL Stop: 04/12/17 09:13 Miscellaneous (Clinical Monitoring) 1 ea MC DAILY PRN PRN Reason: RENAL Stop: 04/19/17 12:28 Ondansetron HCl (Zofran) 4 mg IV Q8H PRN PRN Reason: Nausea / Vomiting Stop: 04/11/17 08:23 Last Admin: 02/16/17 09:10 Dose: 4 mg Pantoprazole Sodium (Protonix) 40 mg PO DAILY [facility] Stop: 04/12/17 08:59 Last Admin: 02/27/17 09:28 Dose: 40 mg Potassium Chloride (Klor-Con) 20 meq PO DAILY [facility] Stop: 04/17/17 08:59 Last Admin: 02/27/17 09:28 Dose: 20 meq Sodium Bicarbonate (Sodium Bicarbonate) 650 mg PO BID [facility] PRN Reason: Protocol Stop: 04/26/17 16:59 Last Admin: 02/27/17 09:28 Dose: 650 mg Tramadol HCl (Ultram) 50 mg PO Q6HR PRN PRN Reason: Pain (Moderate) Stop: 04/26/17 16:08 Last Admin: 02/26/17 00:45 Dose: 50 mg Wound Care/Dressing Products (Therahoney) 1 appl TP DAILY [facility] Stop: 04/26/17 18:29 Last Admin: 02/27/17 09:36 Dose: 1 appl General: Alert, Mild distress HEENT: Atraumatic, PERRLA, EOMI, Mucous membr. moist/pink Neck: Supple, +2 carotid pulse wo bruit Cardiovascular: Regular rate, Normal S1, Normal S2 Lungs: Other (few rhonchi) Abdomen: Bowel sounds, Soft Extremities: no Edema Neurological: Sensation intact Skin: no Rash Psych/Mental Status: Mood NL - Procedures Procedures: Procedures Procedure Code Date INSERT TUNNELED CV CATH [id number] 02/09/17 INSERTION OF INFUSION DEV INTO L SUBCLAV VEIN, PERC APPROACH 28R163R 02/09/17 Assessment/Plan - Problem List Patient Problems: All Active Problems NAUSEA AND VOMITING WITH DEHYDRATION (Acute) sepsis (Acute) Sepsis affecting skin (Acute) L02.91 - Assessment Assessment: Current Active Problems Problem Status Onset NAUSEA AND VOMITING WITH DEHYDRATION Acute leukocytosis distended gall bladder chf s/p arf s/p dialysis trachycardia - Plan Plan: as per nephro cpm labs will monitor Nutritional Asmnt/Malnutr-PDOC - Dietary Evaluation Malnutrition Findings (Please click <Entered> for more info): Nutritional Asmnt/Malnutrition Start: 02/14/17 13: 04 Text: Status: Complete Freq: Document 02/14/17 13:05 GSUN (Rec: 02/14/17 13:21 GSUN [id number]) Nutritional Asmnt/Malnutrition Patient General Information Nutritional Screening Moderate Risk Screening Pertinent Medical Hx/Surgical Hx Dx: Septic shock, hypotension, dehydration, metabolic acidosis improved, SU ?ATN, suspect aspiration PNA HTN, left knee prothesis, dyslipidemia, anemia Subjective Information 66 year old female, Azeri speaking. Pt was receiving breathing treatment during [facility] visit. Observed clear liquid tray at bedside. MD progress note 02/13: DC NG tube and start PO as tolerated. Spoke to RN STEFANIE Mayorga stated for breakfast pt tolerated 2 juices, declined broth, RN will remove mask and encourage lunch shortly. No significant wasting noted. 02/11 KUB: mild ielus. Current Diet Order/ Nutrition Support Clear liquid Pertinent Medications Vitamin C, Lipitor, Culturelle , Solu-Medrol, Zofran, Protonix, Nacl 0.45% Pertinent Labs 02/13: potassium 3L 02/14: BUN 30H, creatinine 1.8H (declining) Nutritional Hx/Data Height 1.68 m Height (Calculated Centimeters) 167.6 Current Weight (lbs) 75.75 kg Weight (Calculated Kilograms) 75.7 Weight (Calculated Grams) 30690.9 [place] Body Weight 130 Weight Status Overweight GI Symptoms Skin Integrity/Comment: Josias 14. Non-pitting edema bilateral feet. 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 Estimated Nutritional Goals Calories/Kcals/Kg IBW 130lb/59.1kg Kcals Calculated 1478-1773kcal (25-30kcal/kg) Protein Calculated 59g (1g/kg) Fluid: ml 1478-1773ml (1ml/kcal) Nutritional Problem 1. Problem Problem Impaired nutrient utilization related to Etiology renal dysfunction, per MD note SU ?ATN Signs/Symptoms: BUN 30H, creatinine 1.8H Intervention/Recommendation Comments 1. Recommend advance diet as tolerated to low sodium diet, to aid in renal function. No renal restriction due to hx of hypokalemia. Expected Outcomes/Goals Expected Outcomes/Goals 1. Pt to resume diet and meet at least 75% fo estimated nutritional needs.
--- NOTE | 2017-02-27 18:40 | Infectious Disease Prog Note ---
Infectious Disease Subjective - Review of Systems Service Date: 02/27/17 Subjective: There is no new change, no fever. No more nausea and vomiting. No diarhea. Infectious Disease Objective - Results Result Diagrams: 02/28/17 05:05 02/28/17 05:05 Recent Labs: Laboratory Last Values WBC 14.7 Th/cmm (4.8-10.8) H 02/27/17 06:20 Corrected WBC (auto) 52.5 Th/cmm (4.8-10.8) H* 02/19/17 09:00 RBC 3.95 Mil/cmm (3.80-5.20) 02/27/17 06:20 Hgb 11.3 gm/dL (11.7-16.1) L 02/27/17 06:20 Hct 33.0 % (35.0-45.0) L 02/27/17 06:20 MCV 83.5 fl (81-100) 02/27/17 06:20 MCH 28.6 pg (27.0-31.0) 02/27/17 06:20 MCHC Differential 34.3 pg (28.0-36.0) 02/27/17 06:20 RDW 18.8 % (11.5-20.0) 02/27/17 06:20 Plt Count 213 Th/cmm (150-400) 02/27/17 06:20 MPV 9.2 fl 02/27/17 06:20 Neutrophils % 84.8 % (40.0-80.0) H 02/16/17 05:00 Band Neutrophils % 4 % (0-10) 02/27/17 06:20 Lymphocytes % 10.0 % (20.0-50.0) L 02/16/17 05:00 Monocytes % 2.7 % (2.0-10.0) 02/16/17 05:00 Eosinophils % 0.1 % (0.0-5.0) 02/16/17 05:00 Basophils % 2.4 % (0.0-2.0) H 02/16/17 05:00 Neutrophils (Manual) 80 % (40-80) 02/27/17 06:20 Lymphocytes 10 % (20-50) L 02/27/17 06:20 Monocytes 6 % (2-10) 02/27/17 06:20 Eosinophils 1 % (0-5) 02/15/17 05:00 Basophils 1 % (0-3) 02/09/17 20:27 Metamyelocytes 1 % (0-0) H 02/23/17 05:40 Nucleated RBCs 1.0 % (0-0) H 02/23/17 05:40 Atypical Lymphocytes 5 % 02/25/17 05:55 Platelet Estimate ADEQUATE (NORMAL) 02/27/17 06:20 Platelet Morphology NORMAL (NORMAL) 02/24/17 05:30 Anisocytosis 1+ 02/18/17 05:55 RBC Morph Micro Appear NORMAL (NORMAL) 02/24/17 05:30 Smear Path Review REVIEWED 02/22/17 06:15 Eos Smear Source URINE 02/14/17 17:40 Eos Smear Total Cells NONE SEEN (NONE SEEN) 02/14/17 17:40 PT 15.6 SECONDS (9.5-11.5) H 02/19/17 16:04 INR 1.47 (0.5-1.4) H 02/19/17 16:04 PTT (Actin FS) 29.9 SECONDS (26.0-38.0) 02/19/17 16:04 Specimen Source Arterial 02/26/17 09:24 Sample Site Left Radial 02/26/17 09:24 pH 7.51 (7.35-7.45) H 02/26/17 09:24 pCO2 24.0 mmHg (35.0-45.0) L* 02/26/17 09:24 pO2 73.0 mmHg (80.0-100.0) L 02/26/17 09:24 HCO3 23.1 mEq/L (20.0-26.0) 02/26/17 09:24 Base Excess -2.3 mEq/L (-3.0-3.0) 02/26/17 09:24 O2 Saturation 96.0 % (92.0-100.0) 02/26/17 09:24 Robin Test PASS 02/26/17 09:24 Vent Rate 12 02/24/17 19:30 Inspired O2 21 02/26/17 09:24 Tidal Volume NA 02/24/17 19:30 PEEP NA 02/24/17 19:30 Pressure (ins/psv/peep) NA 02/24/17 19:30 Critical Value PW 02/26/17 09:24 Sodium 137 mEq/L (136-145) 02/27/17 06:20 Potassium 4.1 mEq/L (3.5-5.1) 02/27/17 06:20 Chloride 110 mEq/L (98-107) H 02/27/17 06:20 Carbon Dioxide 19.5 mEq/L (21.0-31.0) L 02/27/17 06:20 Anion Gap 11.6 (7.0-16.0) 02/27/17 06:20 BUN 31 mg/dL (7-25) H 02/27/17 06:20 Creatinine 0.9 mg/dL (0.6-1.2) 02/27/17 06:20 Est GFR ( Amer) > 60.0 ml/min (>90) 02/27/17 06:20 Est GFR (Non-Af Amer) > 60.0 ml/min 02/27/17 06:20 BUN/Creatinine Ratio 34.4 02/27/17 06:20 Glucose 104 mg/dL (70-105) 02/27/17 06:20 POC Glucose 170 MG/DL (70 - 105) H 02/12/17 09:42 Hemoglobin A1c % 5.1 % (4.0-6.0) 02/11/17 08:11 Whole Bld Lactic Acid 1.29 mmol/L (0.60-1.99) 02/16/17 05:00 Uric Acid 11.2 mg/dL (2.3-6.6) H 02/15/17 05:00 Calcium 8.4 mg/dL (8.6-10.3) L 02/27/17 06:20 Phosphorus 3.8 mg/dL (2.5-5.0) 02/15/17 05:00 Magnesium 1.4 mg/dL (1.9-2.7) L 02/27/17 06:20 Total Bilirubin 0.7 mg/dL (0.3-1.0) 02/26/17 05:35 Direct Bilirubin 0.23 mg/dL (0.0-0.2) H 02/26/17 05:35 AST 74 U/L (13-39) H 02/26/17 05:35 ALT 58 U/L (7-52) H 02/26/17 05:35 Alkaline Phosphatase 232 U/L (34-104) H 02/26/17 05:35 Creatine Kinase 67 U/L (30-223) 02/12/17 04:41 CK-MB (CK-2) 1.1 ng/mL (0.6-6.3) 02/09/17 20:27 Troponin I 0.01 ng/mL (0.01-0.05) 02/09/17 20:27 B-Natriuretic Peptide 783.0 pg/mL (5.0-100.0) H 02/24/17 05:30 Total Protein 5.3 gm/dL (6.0-8.3) L 02/26/17 05:35 Albumin 2.6 gm/dL (3.7-5.3) L 02/26/17 05:35 Globulin 2.7 gm/dL 02/26/17 05:35 Albumin/Globulin Ratio 1.0 (1.0-1.8) 02/26/17 05:35 Amylase 23 U/L (29-103) L 02/13/17 05:03 Lipase 13 U/L (11-82) 02/13/17 05:03 Urine Source ZEE PORT 02/14/17 17:40 Urine Color YELLOW 02/14/17 17:40 Urine Clarity SLIGHT HAZY (CLEAR) 02/14/17 17:40 Urine pH 5.5 02/14/17 17:40 Ur Specific [place] 1.020 (1.005-1.030) 02/14/17 17:40 Urine Protein 100 mg/dL (NEGATIVE) H 02/14/17 17:40 Urine Glucose (UA) NEGATIVE mg/dL (NEGATIVE) 02/14/17 17:40 Urine Ketones NEGATIVE mg/dL (NEGATIVE) 02/14/17 17:40 Urine Blood MODERATE (NEGATIVE) H 02/14/17 17:40 Urine Nitrate NEGATIVE (NEGATIVE) 02/14/17 17:40 Urine Bilirubin NEGATIVE (NEGATIVE) 02/14/17 17:40 Urine Urobilinogen 0.2 E.U./dL (0.2 - 1.0) 02/14/17 17:40 Ur Leukocyte Esterase NEGATIVE (NEGATIVE) 02/14/17 17:40 Urine RBC 2-5 /hpf (0-5) 02/14/17 17:40 Urine WBC 2-5 /hpf (0-5) 02/14/17 17:40 Ur Epithelial Cells FEW /lpf (FEW) 02/14/17 17:40 Amorphous Sediment MANY URATES (NONE SEEN) 02/14/17 17:40 Urine Bacteria MODERATE /hpf (NONE SEEN) 02/14/17 17:40 Hyaline Casts 0-2 /lpf (0-2) H 02/09/17 21:05 Urine Yeast FEW /hpf (NONE SEEN) H 02/14/17 17:40 Ur Random Sodium 37 mmol/L 02/14/17 17:40 Urine Creatinine 32.9 mg/dl (Not Estab.) 02/14/17 21:55 Urine Microalbumin 332.1 ug/mL (Not Estab.) 02/14/17 21:55 Microalb/Creat Ratio 1009.4 mg/g creat (0.0-30.0) H 02/14/17 21:55 Stool Leukocyte NO WBC SEEN 02/12/17 00:05 Hepatitis A IgM Ab Negative (Negative) 02/19/17 06:00 Hep Bs Antigen Negative (Negative) 02/19/17 06:00 Hep B Core IgM Ab Negative (Negative) 02/19/17 06:00 Hepatitis C Antibody 0.1 s/co ratio (0.0-0.9) 02/19/17 06:00 - Physical Exam Vitals and I&O: Vital Signs Temp 97.8 F 02/27/17 16:00 Pulse 121 02/27/17 16:00 Resp 20 02/27/17 16:00 BP 115/72 02/27/17 16:00 Pulse Ox 100 02/27/17 16:00 Intake & Output 02/26/17 02/27/17 02/27/17 18:59 06:59 18:59 Intake Total 100 480 Balance 100 480 Weight (lbs) 78.154 kg Intake: Intake, IV Amount 100 KCL 20mEq/100mL Premix 20 100 meq In 100 ml @ 50 mls/ hr IV Q2H [facility] Rx#: [id number] Oral 480 Other: # Voids 1 # Bowel Movements 1 Stool Characteristics Soft Active Medications: Current Medications Acetaminophen (Tylenol) 650 mg PO Q4HR PRN PRN Reason: TEMP >100 OR PAIN Stop: 04/11/17 15:21 Albuterol Sulfate (Albuterol 2.5mg/3ml Neb Ud) 2.5 mg HHN Q4HRT PRN PRN Reason: Wheezing Stop: 04/13/17 08:21 Last Admin: 02/24/17 17:10 Dose: 2.5 mg Albuterol/Ipratropium (Duoneb Neb) 3 ml HHN Q4HRT [facility] Stop: 04/25/17 18:59 Last Admin: 02/27/17 15:34 Dose: 3 ml Ascorbic Acid (Vitamin C) 500 mg PO DAILY [facility] Stop: 04/12/17 08:59 Last Admin: 02/27/17 09:28 Dose: 500 mg Atorvastatin Calcium (Lipitor) 10 mg PO HS [facility] PRN Reason: Protocol Stop: 04/11/17 20:59 Last Admin: 02/26/17 22:04 Dose: 10 mg Budesonide (Pulmicort) 0.5 mg HHN BIDRT [facility] Stop: 04/25/17 18:59 Last Admin: 02/27/17 07:24 Dose: 0.5 mg Furosemide (Lasix) 20 mg PO DAILY [facility] Stop: 04/26/17 08:59 Last Admin: 02/27/17 09:37 Dose: 20 mg Heparin Sodium (Porcine) (Heparin) 5,000 units SUBQ Q12HR [facility] Stop: 04/22/17 20:59 Last Admin: 02/27/17 09:27 Dose: 5,000 units Sodium Chloride (Nacl 0.45%) 1,000 mls @ 0 mls/hr IV .Q0M [facility] PRN Reason: KVO Stop: 04/15/17 10:13 Last Admin: 02/14/17 11:04 Dose: 10 mls/hr Sodium Chloride (Nacl 0.9%) 1,000 mls @ 100 mls/hr IV .Q10H [facility] Stop: 04/27/17 20:30 Last Admin: 02/26/17 20:45 Dose: 100 mls/hr Megestrol Acetate (Megace) 40 mg PO DAILY [facility] PRN Reason: Protocol Stop: 04/24/17 12:59 Last Admin: 02/27/17 09:27 Dose: 40 mg Miscellaneous (Probiotic Screen) 1 ea MC PRN PRN PRN Reason: PROTOCOL Stop: 04/12/17 09:13 Miscellaneous (Clinical Monitoring) 1 ea MC DAILY PRN PRN Reason: RENAL Stop: 04/19/17 12:28 Ondansetron HCl (Zofran) 4 mg IV Q8H PRN PRN Reason: Nausea / Vomiting Stop: 04/11/17 08:23 Last Admin: 02/16/17 09:10 Dose: 4 mg Pantoprazole Sodium (Protonix) 40 mg PO DAILY [facility] Stop: 04/12/17 08:59 Last Admin: 02/27/17 09:28 Dose: 40 mg Potassium Chloride (Klor-Con) 20 meq PO DAILY [facility] Stop: 04/17/17 08:59 Last Admin: 02/27/17 09:28 Dose: 20 meq Sodium Bicarbonate (Sodium Bicarbonate) 650 mg PO BID PATRICIA PRN Reason: Protocol Stop: 04/26/17 16:59 Last Admin: 02/27/17 17:13 Dose: 650 mg Tramadol HCl (Ultram) 50 mg PO Q6HR PRN PRN Reason: Pain (Moderate) Stop: 04/26/17 16:08 Last Admin: 02/26/17 00:45 Dose: 50 mg Wound Care/Dressing Products (Therahoney) 1 appl TP DAILY [facility] Stop: 04/26/17 18:29 Last Admin: 02/27/17 09:36 Dose: 1 appl General: no acute distress, well developed, well nourished HEENT: atraumatic Neck: supple, no thyromegaly, no lymphadenopathy Cardiovascular: S1S2, regular Lungs: clear to auscultation bilaterally, clear to percussion Abdomen: soft, no tender, no hepatomegaly, no splenomegaly Extremities: other (left knee wound is ok and left knee, no effusion, no swelling.), no cyanosis, no clubbing Neurological: awake, alert, oriented Skin: intact - Procedures Procedures: Procedures Procedure Code Date INSERT TUNNELED CV CATH [id number] 02/09/17 INSERTION OF INFUSION DEV INTO L SUBCLAV VEIN, PERC APPROACH [id number] 02/09/17 Infectious Disease Assmt/Plan - Problem List Patient Problems: All Active Problems NAUSEA AND VOMITING WITH DEHYDRATION (Acute) sepsis (Acute) Sepsis affecting skin (Acute) L02.91 - Assessment Assessment: Impression: 1. Leukocytosis, stable. 2. Pneumonia. Treated. 3. H/o HTN. 4. H/o Anemia. 5. Metabolic acidosis, improved. 6. SU, improved. 7. Small superficial leg wound at the distal end, no sign of infection. Healing well. 8. CHF. Cardiomyopathy. 9. H/O Left TKR. no clinical sign of infection. h/o prosthesis infection, treated recently. 10. Suspect aspiration pneumonia. Treated 11. elevated liver enzymes. 12. Suspect CDAC , as patient has very high WBC count. Recommendations: Cough antibiotic. wound care. Nutritional Asmnt/Malnutr-PDOC - Dietary Evaluation Malnutrition Findings (Please click <Entered> for more info): Nutritional Asmnt/Malnutrition Start: 02/14/17 13: 04 Text: Status: Complete Freq: Document 02/14/17 13:05 GSUN (Rec: 02/14/17 13:21 GSUN [id number]) Nutritional Asmnt/Malnutrition Patient General Information Nutritional Screening Moderate Risk Screening Pertinent Medical Hx/Surgical Hx Dx: Septic shock, hypotension, dehydration, metabolic acidosis improved, SU ?ATN, suspect aspiration PNA HTN, left knee prothesis, dyslipidemia, anemia Subjective Information 66 year old female, Pashto speaking. Pt was receiving breathing treatment during [facility] visit. Observed clear liquid tray at bedside. progress note 02/13: DC NG tube and start PO as tolerated. Spoke to STEFANIE Mayorga RN stated for breakfast pt tolerated 2 juices, declined terrance, RN will remove mask and encourage lunch shortly. No significant wasting noted. 02/11 KUB: mild ielus. Current Diet Order/ Nutrition Support Clear liquid Pertinent Medications Vitamin C, Lipitor, Culturelle , Solu-Medrol, Zofran, Protonix, Nacl 0.45% Pertinent Labs 02/13: potassium 3L 02/14: BUN 30H, creatinine 1.8H (declining) Nutritional Hx/Data Height 1.68 m Height (Calculated Centimeters) 167.6 Current Weight (lbs) 75.75 kg Weight (Calculated Kilograms) 75.7 Weight (Calculated Grams) 92255.9 Cranks Body Weight 130 Weight Status Overweight GI Symptoms Skin Integrity/Comment: Josias 14. Non-pitting edema bilateral feet. 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 Estimated Nutritional Goals Calories/Kcals/Kg IBW 130lb/59.1kg Kcals Calculated 1478-1773kcal (25-30kcal/kg) Protein Calculated 59g (1g/kg) Fluid: ml 1478-1773ml (1ml/kcal) Nutritional Problem 1. Problem Problem Impaired nutrient utilization related to Etiology renal dysfunction, per MD note SU ?ATN Signs/Symptoms: BUN 30H, creatinine 1.8H Intervention/Recommendation Comments 1. Recommend advance diet as tolerated to low sodium diet, to aid in renal function. No renal restriction due to hx of hypokalemia. Expected Outcomes/Goals Expected Outcomes/Goals 1. Pt to resume diet and meet at least 75% fo estimated nutritional needs.
[2017-02-27] MEDS: Atorvastatin Calcium 10 MG TAB PO SCH (21:24)
[2017-02-27] MEDS: Sodium Chloride 0.9% 1,000 ML IV SCH (21:24)
[2017-02-28] MEDS: Albuterol/Ipratropium Neb 3 ML AERS HHN SCH ×4 (02:52→15:42)
[2017-02-28 05:25] LABS: % BASOPHILS 0.1 % (0.0-2.0); % EOSINOPHILS 0.7 % (0.0-5.0); % LYMPHOCYTES 15.3 % (20.0-50.0); % MONOCYTES 5.5 % (2.0-10.0); % NEUTROPHILS 78.4 % (40.0-80.0); HEMATOCRIT 32.1 % (35.0-45.0); HEMOGLOBIN 10.9 gm/dL (11.7-16.1); MEAN CELL VOLUME 82.8 fl (81-100); MEAN CORPUSCULAR HEMOGLOBIN 28.2 pg (27.0-31.0); MEAN PLATELET VOLUME 9.5 fl; NEUTROPHILE ABSOLUTE 10.5 Th/cmm (1.8-8.0); PLATELET COUNT 198 Th/cmm (150-400); RED BLOOD COUNT 3.87 Mil/cmm (3.80-5.20); RED CELL DISTRIBUTION WIDTH 19.4 % (11.5-20.0)
[2017-02-28 05:32] LABS: WHITE BLOOD COUNT 13.3 Th/cmm (4.8-10.8)
[2017-02-28 05:42] LABS: ANION GAP 12.5 (7.0-16.0); BUN - UREA NITROGEN 29 mg/dL (7-25); BUN/CREATININE RATIO 36.3; CALCIUM SERUM 8.2 mg/dL (8.6-10.3); CARBON DIOXIDE 19.4 mEq/L (21.0-31.0); CHLORIDE 109 mEq/L (98-107); CREATININE - SERUM 0.8 mg/dL (0.6-1.2); GLUCOSE 105 mg/dL (70-105); POTASSIUM SERUM 3.9 mEq/L (3.5-5.1); SODIUM SERUM 137 mEq/L (136-145)
[2017-02-28] MEDS: Budesonide 0.5 Mg/2 mL Ud HHN SCH (07:37)
[2017-02-28 08:08] LABS: CERULOPLASMIN 27.9 mg/dL (19.0-39.0)
[2017-02-28] MEDS: Potassium Chloride 20 mEq ER Tab PO SCH (08:27)
[2017-02-28] MEDS: Multivitamin w/ Minerals Tab PO SCH (08:27)
[2017-02-28] MEDS: Pantoprazole 40 mg EC Tab PO SCH (08:27)
[2017-02-28] MEDS: Therahoney Gel 42.5gm Tube TP SCH (10:22)
--- NOTE | 2017-02-28 11:45 | General Progress Note ---
Subjective - Review of Systems Events since last encounter: no new changes Subjective: pt is awake denies any pain pt states she in comfortable Objective - Results Result Diagrams: 02/28/17 05:05 02/28/17 05:05 Recent Labs: Laboratory Last Values WBC 13.3 Th/cmm (4.8-10.8) H 02/28/17 05:05 Corrected WBC (auto) 52.5 Th/cmm (4.8-10.8) H* 02/19/17 09:00 RBC 3.87 Mil/cmm (3.80-5.20) 02/28/17 05:05 Hgb 10.9 gm/dL (11.7-16.1) L 02/28/17 05:05 Hct 32.1 % (35.0-45.0) L 02/28/17 05:05 MCV 82.8 fl (81-100) 02/28/17 05:05 MCH 28.2 pg (27.0-31.0) 02/28/17 05:05 MCHC Differential 34.0 pg (28.0-36.0) 02/28/17 05:05 RDW 19.4 % (11.5-20.0) 02/28/17 05:05 Plt Count 198 Th/cmm (150-400) 02/28/17 05:05 MPV 9.5 fl 02/28/17 05:05 Neutrophils % 78.4 % (40.0-80.0) 02/28/17 05:05 Band Neutrophils % 4 % (0-10) 02/27/17 06:20 Lymphocytes % 15.3 % (20.0-50.0) L 02/28/17 05:05 Monocytes % 5.5 % (2.0-10.0) 02/28/17 05:05 Eosinophils % 0.7 % (0.0-5.0) 02/28/17 05:05 Basophils % 0.1 % (0.0-2.0) 02/28/17 05:05 Neutrophils (Manual) 80 % (40-80) 02/27/17 06:20 Lymphocytes 10 % (20-50) L 02/27/17 06:20 Monocytes 6 % (2-10) 02/27/17 06:20 Eosinophils 1 % (0-5) 02/15/17 05:00 Basophils 1 % (0-3) 02/09/17 20:27 Metamyelocytes 1 % (0-0) H 02/23/17 05:40 Nucleated RBCs 1.0 % (0-0) H 02/23/17 05:40 Atypical Lymphocytes 5 % 02/25/17 05:55 Platelet Estimate ADEQUATE (NORMAL) 02/27/17 06:20 Platelet Morphology NORMAL (NORMAL) 02/24/17 05:30 Anisocytosis 1+ 02/18/17 05:55 RBC Morph Micro Appear NORMAL (NORMAL) 02/24/17 05:30 Smear Path Review REVIEWED 02/22/17 06:15 Eos Smear Source URINE 02/14/17 17:40 Eos Smear Total Cells NONE SEEN (NONE SEEN) 02/14/17 17:40 PT 15.6 SECONDS (9.5-11.5) H 02/19/17 16:04 INR 1.47 (0.5-1.4) H 02/19/17 16:04 PTT (Actin FS) 29.9 SECONDS (26.0-38.0) 02/19/17 16:04 Specimen Source Arterial 02/26/17 09:24 Sample Site Left Radial 02/26/17 09:24 pH 7.51 (7.35-7.45) H 02/26/17 09:24 pCO2 24.0 mmHg (35.0-45.0) L* 02/26/17 09:24 pO2 73.0 mmHg (80.0-100.0) L 02/26/17 09:24 HCO3 23.1 mEq/L (20.0-26.0) 02/26/17 09:24 Base Excess -2.3 mEq/L (-3.0-3.0) 02/26/17 09:24 O2 Saturation 96.0 % (92.0-100.0) 02/26/17 09:24 Robin Test PASS 02/26/17 09:24 Vent Rate 12 02/24/17 19:30 Inspired O2 21 02/26/17 09:24 Tidal Volume NA 02/24/17 19:30 PEEP NA 02/24/17 19:30 Pressure (ins/psv/peep) NA 02/24/17 19:30 Critical Value PW 02/26/17 09:24 Sodium 137 mEq/L (136-145) 02/28/17 05:05 Potassium 3.9 mEq/L (3.5-5.1) 02/28/17 05:05 Chloride 109 mEq/L (98-107) H 02/28/17 05:05 Carbon Dioxide 19.4 mEq/L (21.0-31.0) L 02/28/17 05:05 Anion Gap 12.5 (7.0-16.0) 02/28/17 05:05 BUN 29 mg/dL (7-25) H 02/28/17 05:05 Creatinine 0.8 mg/dL (0.6-1.2) 02/28/17 05:05 Est GFR ( Amer) > 60.0 ml/min (>90) 02/28/17 05:05 Est GFR (Non-Af Amer) > 60.0 ml/min 02/28/17 05:05 BUN/Creatinine Ratio 36.3 02/28/17 05:05 Glucose 105 mg/dL (70-105) 02/28/17 05:05 POC Glucose 170 MG/DL (70 - 105) H 02/12/17 09:42 Hemoglobin A1c % 5.1 % (4.0-6.0) 02/11/17 08:11 Whole Bld Lactic Acid 1.29 mmol/L (0.60-1.99) 02/16/17 05:00 Uric Acid 11.2 mg/dL (2.3-6.6) H 02/15/17 05:00 Calcium 8.2 mg/dL (8.6-10.3) L 02/28/17 05:05 Phosphorus 3.8 mg/dL (2.5-5.0) 02/15/17 05:00 Magnesium 1.4 mg/dL (1.9-2.7) L 02/27/17 06:20 Iron 48 ug/dL (27-139) 02/24/17 11:30 TIBC 145 ug/dL (250-450) L 02/24/17 11:30 Iron Saturation 33 % (15-55) 02/24/17 11:30 Unsaturated IBC 97 ug/dL (118-369) L 02/24/17 11:30 Ferritin 1770 ng/mL (15-150) H 02/24/17 11:30 Total Bilirubin 0.7 mg/dL (0.3-1.0) 02/26/17 05:35 Direct Bilirubin 0.23 mg/dL (0.0-0.2) H 02/26/17 05:35 AST 74 U/L (13-39) H 02/26/17 05:35 ALT 58 U/L (7-52) H 02/26/17 05:35 Alkaline Phosphatase 232 U/L (34-104) H 02/26/17 05:35 Creatine Kinase 67 U/L (30-223) 02/12/17 04:41 CK-MB (CK-2) 1.1 ng/mL (0.6-6.3) 02/09/17 20:27 Troponin I 0.01 ng/mL (0.01-0.05) 02/09/17 20:27 B-Natriuretic Peptide 783.0 pg/mL (5.0-100.0) H 02/24/17 05:30 Total Protein 5.3 gm/dL (6.0-8.3) L 02/26/17 05:35 Albumin 2.6 gm/dL (3.7-5.3) L 02/26/17 05:35 Globulin 2.7 gm/dL 02/26/17 05:35 Albumin/Globulin Ratio 1.0 (1.0-1.8) 02/26/17 05:35 Mfrud-3-Irovlfzlnkm 155 mg/dL (90-200) 02/24/17 11:30 Ceruloplasmin 27.9 mg/dL (19.0-39.0) 02/24/17 11:30 Amylase 23 U/L (29-103) L 02/13/17 05:03 Lipase 13 U/L (11-82) 02/13/17 05:03 Urine Source ZEE PORT 02/14/17 17:40 Urine Color YELLOW 02/14/17 17:40 Urine Clarity SLIGHT HAZY (CLEAR) 02/14/17 17:40 Urine pH 5.5 02/14/17 17:40 Ur Specific [place] 1.020 (1.005-1.030) 02/14/17 17:40 Urine Protein 100 mg/dL (NEGATIVE) H 02/14/17 17:40 Urine Glucose (UA) NEGATIVE mg/dL (NEGATIVE) 02/14/17 17:40 Urine Ketones NEGATIVE mg/dL (NEGATIVE) 02/14/17 17:40 Urine Blood MODERATE (NEGATIVE) H 02/14/17 17:40 Urine Nitrate NEGATIVE (NEGATIVE) 02/14/17 17:40 Urine Bilirubin NEGATIVE (NEGATIVE) 02/14/17 17:40 Urine Urobilinogen 0.2 E.U./dL (0.2 - 1.0) 02/14/17 17:40 Ur Leukocyte Esterase NEGATIVE (NEGATIVE) 02/14/17 17:40 Urine RBC 2-5 /hpf (0-5) 02/14/17 17:40 Urine WBC 2-5 /hpf (0-5) 02/14/17 17:40 Ur Epithelial Cells FEW /lpf (FEW) 02/14/17 17:40 Amorphous Sediment MANY URATES (NONE SEEN) 02/14/17 17:40 Urine Bacteria MODERATE /hpf (NONE SEEN) 02/14/17 17:40 Hyaline Casts 0-2 /lpf (0-2) H 02/09/17 21:05 Urine Yeast FEW /hpf (NONE SEEN) H 02/14/17 17:40 Ur Random Sodium 37 mmol/L 02/14/17 17:40 Urine Creatinine 32.9 mg/dl (Not Estab.) 02/14/17 21:55 Urine Microalbumin 332.1 ug/mL (Not Estab.) 02/14/17 21:55 Microalb/Creat Ratio 1009.4 mg/g creat (0.0-30.0) H 02/14/17 21:55 Stool Leukocyte NO WBC SEEN 02/12/17 00:05 Anti-Mitochondrial Ab 8.8 Units (0.0-20.0) 02/24/17 11:30 Smooth Muscle IgG Ab 22 Units (0-19) H 02/24/17 11:30 Hepatitis A IgM Ab Negative (Negative) 02/19/17 06:00 Hep Bs Antigen Negative (Negative) 02/19/17 06:00 Hep B Core IgM Ab Negative (Negative) 02/19/17 06:00 Hepatitis C Antibody 0.1 s/co ratio (0.0-0.9) 02/19/17 06:00 - Physical Exam Vitals and I&O: Vital Signs Temp 98.2 F 02/28/17 10:25 Pulse 113 07/24/17 11:40 Resp 18 02/28/17 11:40 BP 92/65 02/28/17 10:25 Pulse Ox 97 02/28/17 11:40 Intake & Output 02/27/17 02/28/17 02/28/17 18:59 06:59 18:59 Intake Total 480 1200 Balance 480 1200 Weight (lbs) 78.018 kg 78.245 kg Intake: Intake, IV Amount 1000 Sodium Chloride 0.9% 1, 1000 000 ml @ 100 mls/hr IV . Q10H [facility] Rx#:[id number] Oral 480 200 Other: # Voids 1 3 # Bowel Movements 1 1 Stool Characteristics Soft Soft Soft Active Medications: Current Medications Acetaminophen (Tylenol) 650 mg PO Q4HR PRN PRN Reason: TEMP >100 OR PAIN Stop: 04/11/17 15:21 Albuterol Sulfate (Albuterol 2.5mg/3ml Neb Ud) 2.5 mg HHN Q4HRT PRN PRN Reason: Wheezing Stop: 04/13/17 08:21 Last Admin: 02/24/17 17:10 Dose: 2.5 mg Albuterol/Ipratropium (Duoneb Neb) 3 ml HHN Q4HRT PATRICIA Stop: 04/25/17 18:59 Last Admin: 02/28/17 11:35 Dose: 3 ml Ascorbic Acid (Vitamin C) 500 mg PO DAILY PATRICIA Stop: 04/12/17 08:59 Last Admin: 02/28/17 08:26 Dose: Not Given Atorvastatin Calcium (Lipitor) 10 mg PO HS PATRICIA PRN Reason: Protocol Stop: 04/11/17 20:59 Last Admin: 02/27/17 21:24 Dose: 10 mg Budesonide (Pulmicort) 0.5 mg HHN BIDRT PATRICIA Stop: 04/25/17 18:59 Last Admin: 02/28/17 07:37 Dose: 0.5 mg Furosemide (Lasix) 20 mg PO DAILY PATRICIA Stop: 04/26/17 08:59 Last Admin: 02/28/17 08:26 Dose: Not Given Heparin Sodium (Porcine) (Heparin) 5,000 units SUBQ Q12HR PATRICIA Stop: 04/22/17 20:59 Last Admin: 02/28/17 08:26 Dose: Not Given Sodium Chloride (Nacl 0.45%) 1,000 mls @ 0 mls/hr IV .Q0M PATRICIA PRN Reason: KVO Stop: 04/15/17 10:13 Last Admin: 02/14/17 11:04 Dose: 10 mls/hr Sodium Chloride (Nacl 0.9%) 1,000 mls @ 100 mls/hr IV .Q10H PATRICIA Stop: 04/27/17 20:30 Last Admin: 02/27/17 21:24 Dose: 100 mls/hr Megestrol Acetate (Megace) 40 mg PO DAILY PATRICIA PRN Reason: Protocol Stop: 04/24/17 12:59 Last Admin: 02/28/17 08:26 Dose: Not Given Miscellaneous (Probiotic Screen) 1 ea MC PRN PRN PRN Reason: PROTOCOL Stop: 04/12/17 09:13 Miscellaneous (Clinical Monitoring) 1 ea MC DAILY PRN PRN Reason: RENAL Stop: 04/19/17 12:28 Ondansetron HCl (Zofran) 4 mg IV Q8H PRN PRN Reason: Nausea / Vomiting Stop: 04/11/17 08:23 Last Admin: 02/28/17 08:32 Dose: 4 mg Pantoprazole Sodium (Protonix) 40 mg PO DAILY PATRICIA Stop: 04/12/17 08:59 Last Admin: 02/28/17 08:27 Dose: Not Given Potassium Chloride (Klor-Con) 20 meq PO DAILY PATRICIA Stop: 04/17/17 08:59 Last Admin: 02/28/17 08:27 Dose: Not Given Sodium Bicarbonate (Sodium Bicarbonate) 650 mg PO BID PATRICIA PRN Reason: Protocol Stop: 04/26/17 16:59 Last Admin: 02/28/17 08:27 Dose: Not Given Tramadol HCl (Ultram) 50 mg PO Q6HR PRN PRN Reason: Pain (Moderate) Stop: 04/26/17 16:08 Last Admin: 02/28/17 11:30 Dose: 50 mg Wound Care/Dressing Products (Therahoney) 1 appl TP DAILY [facility] Stop: 04/26/17 18:29 Last Admin: 02/28/17 10:22 Dose: Not Given General: Alert, Mild distress HEENT: Atraumatic, PERRLA, EOMI, Mucous membr. moist/pink Neck: Supple, +2 carotid pulse wo bruit Cardiovascular: Regular rate, Normal S1, Normal S2 Lungs: Other (few rhonchi) Abdomen: Bowel sounds, Soft Extremities: no Edema Neurological: Sensation intact Skin: no Rash Psych/Mental Status: Mood NL - Procedures Procedures: Procedures Procedure Code Date INSERT TUNNELED CV CATH [id number] 02/09/17 INSERTION OF INFUSION DEV INTO L SUBCLAV VEIN, PERC APPROACH 51B630F 02/09/17 Assessment/Plan - Problem List Patient Problems: All Active Problems NAUSEA AND VOMITING WITH DEHYDRATION (Acute) sepsis (Acute) Sepsis affecting skin (Acute) L02.91 - Assessment Assessment: Current Active Problems Problem Status Onset NAUSEA AND VOMITING WITH DEHYDRATION Acute leukocytosis distended gall bladder chf s/p arf s/p dialysis trachycardia - Plan Plan: as per nephro cpm labs will monitor Nutritional Asmnt/Malnutr-PDOC - Dietary Evaluation Malnutrition Findings (Please click <Entered> for more info): Nutritional Asmnt/Malnutrition Start: 02/14/17 13: 04 Text: Status: Complete Freq: Document 02/14/17 13:05 GSUN (Rec: 02/14/17 13:21 [facility] Nutritional Asmnt/Malnutrition Patient General Information Nutritional Screening Moderate Risk Screening Pertinent Medical Hx/Surgical Hx Dx: Septic shock, hypotension, dehydration, metabolic acidosis improved, SU ?ATN, suspect aspiration PNA HTN, left knee prothesis, dyslipidemia, anemia Subjective Information 66 year old female, Uzbek speaking. Pt was receiving breathing treatment during [facility]. Observed clear liquid tray at bedside. progress note 02/13: DC NG tube and start PO as tolerated. Spoke to STEFANIE Mayorga RN stated for breakfast pt tolerated 2 juices, declined terrance RN will remove mask and encourage lunch shortly. No significant wasting noted. 02/11 KUB: mild ielus. Current Diet Order/ Nutrition Support Clear liquid Pertinent Medications Vitamin C, Lipitor, Culturelle , Solu-Medrol, Zofran, Protonix, Nacl 0.45% Pertinent Labs 02/13: potassium 3L 02/14: BUN 30H, creatinine 1.8H (declining) Nutritional Hx/Data Height 1.68 m Height (Calculated Centimeters) 167.6 Current Weight (lbs) 75.75 kg Weight (Calculated Kilograms) 75.7 Weight (Calculated Grams) 32686.9 [place] Body Weight 130 Weight Status Overweight GI Symptoms Skin Integrity/Comment: Josias 14. Non-pitting edema bilateral feet. buccaro: skin tears. Estimated Nutritional Goals Calories/Kcals/Kg IBW 130lb/59.1kg Kcals Calculated 1478-1773kcal (25-30kcal/kg) Protein Calculated 59g (1g/kg) Fluid: ml 1478-1773ml (1ml/kcal) Nutritional Problem 1. Problem Problem Impaired nutrient utilization related to Etiology renal dysfunction, per MD note SU ?ATN Signs/Symptoms: BUN 30H, creatinine 1.8H Intervention/Recommendation Comments 1. Recommend advance diet as tolerated to low sodium diet, to aid in renal function. No renal restriction due to hx of hypokalemia. Expected Outcomes/Goals Expected Outcomes/Goals 1. Pt to resume diet and meet at least 75% fo estimated nutritional needs.
--- NOTE | 2017-02-28 11:59 | General Progress Note ---
Subjective - Review of Systems Service Date: 02/28/17 Objective - Results Result Diagrams: 02/28/17 05:05 02/28/17 05:05 Recent Labs: Laboratory Last Values WBC 13.3 Th/cmm (4.8-10.8) H 02/28/17 05:05 Corrected WBC (auto) 52.5 Th/cmm (4.8-10.8) H* 02/19/17 09:00 RBC 3.87 Mil/cmm (3.80-5.20) 02/28/17 05:05 Hgb 10.9 gm/dL (11.7-16.1) L 02/28/17 05:05 Hct 32.1 % (35.0-45.0) L 02/28/17 05:05 MCV 82.8 fl (81-100) 02/28/17 05:05 MCH 28.2 pg (27.0-31.0) 02/28/17 05:05 MCHC Differential 34.0 pg (28.0-36.0) 02/28/17 05:05 RDW 19.4 % (11.5-20.0) 02/28/17 05:05 Plt Count 198 Th/cmm (150-400) 02/28/17 05:05 MPV 9.5 fl 02/28/17 05:05 Neutrophils % 78.4 % (40.0-80.0) 02/28/17 05:05 Band Neutrophils % 4 % (0-10) 02/27/17 06:20 Lymphocytes % 15.3 % (20.0-50.0) L 02/28/17 05:05 Monocytes % 5.5 % (2.0-10.0) 02/28/17 05:05 Eosinophils % 0.7 % (0.0-5.0) 02/28/17 05:05 Basophils % 0.1 % (0.0-2.0) 02/28/17 05:05 Neutrophils (Manual) 80 % (40-80) 02/27/17 06:20 Lymphocytes 10 % (20-50) L 02/27/17 06:20 Monocytes 6 % (2-10) 02/27/17 06:20 Eosinophils 1 % (0-5) 02/15/17 05:00 Basophils 1 % (0-3) 02/09/17 20:27 Metamyelocytes 1 % (0-0) H 02/23/17 05:40 Nucleated RBCs 1.0 % (0-0) H 02/23/17 05:40 Atypical Lymphocytes 5 % 02/25/17 05:55 Platelet Estimate ADEQUATE (NORMAL) 02/27/17 06:20 Platelet Morphology NORMAL (NORMAL) 02/24/17 05:30 Anisocytosis 1+ 02/18/17 05:55 RBC Morph Micro Appear NORMAL (NORMAL) 02/24/17 05:30 Smear Path Review REVIEWED 02/22/17 06:15 Eos Smear Source URINE 02/14/17 17:40 Eos Smear Total Cells NONE SEEN (NONE SEEN) 02/14/17 17:40 PT 15.6 SECONDS (9.5-11.5) H 02/19/17 16:04 INR 1.47 (0.5-1.4) H 02/19/17 16:04 PTT (Actin FS) 29.9 SECONDS (26.0-38.0) 02/19/17 16:04 Specimen Source Arterial 02/26/17 09:24 Sample Site Left Radial 02/26/17 09:24 pH 7.51 (7.35-7.45) H 02/26/17 09:24 pCO2 24.0 mmHg (35.0-45.0) L* 02/26/17 09:24 pO2 73.0 mmHg (80.0-100.0) L 02/26/17 09:24 HCO3 23.1 mEq/L (20.0-26.0) 02/26/17 09:24 Base Excess -2.3 mEq/L (-3.0-3.0) 02/26/17 09:24 O2 Saturation 96.0 % (92.0-100.0) 02/26/17 09:24 Robin Test PASS 02/26/17 09:24 Vent Rate 12 02/24/17 19:30 Inspired O2 21 02/26/17 09:24 Tidal Volume NA 02/24/17 19:30 PEEP NA 02/24/17 19:30 Pressure (ins/psv/peep) NA 02/24/17 19:30 Critical Value PW 02/26/17 09:24 Sodium 137 mEq/L (136-145) 02/28/17 05:05 Potassium 3.9 mEq/L (3.5-5.1) 02/28/17 05:05 Chloride 109 mEq/L (98-107) H 02/28/17 05:05 Carbon Dioxide 19.4 mEq/L (21.0-31.0) L 02/28/17 05:05 Anion Gap 12.5 (7.0-16.0) 02/28/17 05:05 BUN 29 mg/dL (7-25) H 02/28/17 05:05 Creatinine 0.8 mg/dL (0.6-1.2) 02/28/17 05:05 Est GFR ( Amer) > 60.0 ml/min (>90) 02/28/17 05:05 Est GFR (Non-Af Amer) > 60.0 ml/min 02/28/17 05:05 BUN/Creatinine Ratio 36.3 02/28/17 05:05 Glucose 105 mg/dL (70-105) 02/28/17 05:05 POC Glucose 170 MG/DL (70 - 105) H 02/12/17 09:42 Hemoglobin A1c % 5.1 % (4.0-6.0) 02/11/17 08:11 Whole Bld Lactic Acid 1.29 mmol/L (0.60-1.99) 02/16/17 05:00 Uric Acid 11.2 mg/dL (2.3-6.6) H 02/15/17 05:00 Calcium 8.2 mg/dL (8.6-10.3) L 02/28/17 05:05 Phosphorus 3.8 mg/dL (2.5-5.0) 02/15/17 05:00 Magnesium 1.4 mg/dL (1.9-2.7) L 02/27/17 06:20 Iron 48 ug/dL (27-139) 02/24/17 11:30 TIBC 145 ug/dL (250-450) L 02/24/17 11:30 Iron Saturation 33 % (15-55) 02/24/17 11:30 Unsaturated IBC 97 ug/dL (118-369) L 02/24/17 11:30 Ferritin 1770 ng/mL (15-150) H 02/24/17 11:30 Total Bilirubin 0.7 mg/dL (0.3-1.0) 02/26/17 05:35 Direct Bilirubin 0.23 mg/dL (0.0-0.2) H 02/26/17 05:35 AST 74 U/L (13-39) H 02/26/17 05:35 ALT 58 U/L (7-52) H 02/26/17 05:35 Alkaline Phosphatase 232 U/L (34-104) H 02/26/17 05:35 Creatine Kinase 67 U/L (30-223) 02/12/17 04:41 CK-MB (CK-2) 1.1 ng/mL (0.6-6.3) 02/09/17 20:27 Troponin I 0.01 ng/mL (0.01-0.05) 02/09/17 20:27 B-Natriuretic Peptide 783.0 pg/mL (5.0-100.0) H 02/24/17 05:30 Total Protein 5.3 gm/dL (6.0-8.3) L 02/26/17 05:35 Albumin 2.6 gm/dL (3.7-5.3) L 02/26/17 05:35 Globulin 2.7 gm/dL 02/26/17 05:35 Albumin/Globulin Ratio 1.0 (1.0-1.8) 02/26/17 05:35 Jrxoi-5-Mjukqmbzfvt 155 mg/dL (90-200) 02/24/17 11:30 Ceruloplasmin 27.9 mg/dL (19.0-39.0) 02/24/17 11:30 Amylase 23 U/L (29-103) L 02/13/17 05:03 Lipase 13 U/L (11-82) 02/13/17 05:03 Urine Source [place] 02/14/17 17:40 Urine Color YELLOW 02/14/17 17:40 Urine Clarity SLIGHT HAZY (CLEAR) 02/14/17 17:40 Urine pH 5.5 02/14/17 17:40 Ur Specific [place] 1.020 (1.005-1.030) 02/14/17 17:40 Urine Protein 100 mg/dL (NEGATIVE) H 02/14/17 17:40 Urine Glucose (UA) NEGATIVE mg/dL (NEGATIVE) 02/14/17 17:40 Urine Ketones NEGATIVE mg/dL (NEGATIVE) 02/14/17 17:40 Urine Blood MODERATE (NEGATIVE) H 02/14/17 17:40 Urine Nitrate NEGATIVE (NEGATIVE) 02/14/17 17:40 Urine Bilirubin NEGATIVE (NEGATIVE) 02/14/17 17:40 Urine Urobilinogen 0.2 E.U./dL (0.2 - 1.0) 02/14/17 17:40 Ur Leukocyte Esterase NEGATIVE (NEGATIVE) 02/14/17 17:40 Urine RBC 2-5 /hpf (0-5) 02/14/17 17:40 Urine WBC 2-5 /hpf (0-5) 02/14/17 17:40 Ur Epithelial Cells FEW /lpf (FEW) 02/14/17 17:40 Amorphous Sediment MANY URATES (NONE SEEN) 02/14/17 17:40 Urine Bacteria MODERATE /hpf (NONE SEEN) 02/14/17 17:40 Hyaline Casts 0-2 /lpf (0-2) H 02/09/17 21:05 Urine Yeast FEW /hpf (NONE SEEN) H 02/14/17 17:40 Ur Random Sodium 37 mmol/L 02/14/17 17:40 Urine Creatinine 32.9 mg/dl (Not Estab.) 02/14/17 21:55 Urine Microalbumin 332.1 ug/mL (Not Estab.) 02/14/17 21:55 Microalb/Creat Ratio 1009.4 mg/g creat (0.0-30.0) H 02/14/17 21:55 Stool Leukocyte NO WBC SEEN 02/12/17 00:05 Anti-Mitochondrial Ab 8.8 Units (0.0-20.0) 02/24/17 11:30 Smooth Muscle IgG Ab 22 Units (0-19) H 02/24/17 11:30 Hepatitis A IgM Ab Negative (Negative) 02/19/17 06:00 Hep Bs Antigen Negative (Negative) 02/19/17 06:00 Hep B Core IgM Ab Negative (Negative) 02/19/17 06:00 Hepatitis C Antibody 0.1 s/co ratio (0.0-0.9) 02/19/17 06:00 - Physical Exam Vitals and I&O: Vital Signs Temp 98.2 F 02/28/17 10:25 Pulse 113 02/28/17 11:40 Resp 18 02/28/17 11:40 BP 92/65 02/28/17 10:25 Pulse Ox 97 02/28/17 11:40 Intake & Output 02/27/17 02/28/17 02/28/17 18:59 06:59 18:59 Intake Total 480 1200 Balance 480 1200 Weight (lbs) 78.018 kg 78.245 kg Intake: Intake, IV Amount 1000 Sodium Chloride 0.9% 1, 1000 000 ml @ 100 mls/hr IV . Q10H [facility] Rx#:[id number] Oral 480 200 Other: # Voids 1 3 # Bowel Movements 1 1 Stool Characteristics Soft Soft Soft Active Medications: Current Medications Acetaminophen (Tylenol) 650 mg PO Q4HR PRN PRN Reason: TEMP >100 OR PAIN Stop: 04/11/17 15:21 Albuterol Sulfate (Albuterol 2.5mg/3ml Neb Ud) 2.5 mg HHN Q4HRT PRN PRN Reason: Wheezing Stop: 04/13/17 08:21 Last Admin: 02/24/17 17:10 Dose: 2.5 mg Albuterol/Ipratropium (Duoneb Neb) 3 ml HHN Q4HRT PATRICIA Stop: 04/25/17 18:59 Last Admin: 02/28/17 11:35 Dose: 3 ml Ascorbic Acid (Vitamin C) 500 mg PO DAILY PATRICIA Stop: 04/12/17 08:59 Last Admin: 02/28/17 08:26 Dose: Not Given Atorvastatin Calcium (Lipitor) 10 mg PO HS PATRICIA PRN Reason: Protocol Stop: 04/11/17 20:59 Last Admin: 02/27/17 21:24 Dose: 10 mg Budesonide (Pulmicort) 0.5 mg HHN BIDRT PATRICIA Stop: 04/25/17 18:59 Last Admin: 02/28/17 07:37 Dose: 0.5 mg Furosemide (Lasix) 20 mg PO DAILY PATRICIA Stop: 04/26/17 08:59 Last Admin: 02/28/17 08:26 Dose: Not Given Heparin Sodium (Porcine) (Heparin) 5,000 units SUBQ Q12HR PATR[facility]IA Stop: 04/22/17 20:59 Last Admin: 02/28/17 08:26 Dose: Not Given Sodium Chloride (Nacl 0.45%) 1,000 mls @ 0 mls/hr IV .Q0M PATRICIA PRN Reason: KVO Stop: 04/15/17 10:13 Last Admin: 02/14/17 11:04 Dose: 10 mls/hr Sodium Chloride (Nacl 0.9%) 1,000 mls @ 100 mls/hr IV .Q10H PATRICIA Stop: 04/27/17 20:30 Last Admin: 02/27/17 21:24 Dose: 100 mls/hr Megestrol Acetate (Megace) 40 mg PO DAILY PATRICIA PRN Reason: Protocol Stop: 04/24/17 12:59 Last Admin: 02/28/17 08:26 Dose: Not Given Miscellaneous (Probiotic Screen) 1 ea MC PRN PRN PRN Reason: PROTOCOL Stop: 04/12/17 09:13 Miscellaneous (Clinical Monitoring) 1 ea MC DAILY PRN PRN Reason: RENAL Stop: 04/19/17 12:28 Ondansetron HCl (Zofran) 4 mg IV Q8H PRN PRN Reason: Nausea / Vomiting Stop: 04/11/17 08:23 Last Admin: 02/28/17 08:32 Dose: 4 mg Pantoprazole Sodium (Protonix) 40 mg PO DAILY PATRICIA Stop: 04/12/17 08:59 Last Admin: 02/28/17 08:27 Dose: Not Given Potassium Chloride (Klor-Con) 20 meq PO DAILY PATRICIA Stop: 04/17/17 08:59 Last Admin: 02/28/17 08:27 Dose: Not Given Sodium Bicarbonate (Sodium Bicarbonate) 650 mg PO BID PATRICIA PRN Reason: Protocol Stop: 04/26/17 16:59 Last Admin: 02/28/17 08:27 Dose: Not Given Tramadol HCl (Ultram) 50 mg PO Q6HR PRN PRN Reason: Pain (Moderate) Stop: 04/26/17 16:08 Last Admin: 02/28/17 11:30 Dose: 50 mg Wound Care/Dressing Products (Therahoney) 1 appl TP DAILY [facility] Stop: 04/26/17 18:29 Last Admin: 02/28/17 10:22 Dose: Not Given General: Alert, Mild distress HEENT: Atraumatic, PERRLA, EOMI, Mucous membr. moist/pink Neck: Supple, +2 carotid pulse wo bruit Cardiovascular: Regular rate, Normal S1, Normal S2 Lungs: Other (few rhonchi) Abdomen: Bowel sounds, Soft Extremities: no Edema Neurological: Sensation intact Skin: no Rash Psych/Mental Status: Mood NL - Procedures Procedures: Procedures Procedure Code Date INSERT TUNNELED CV CATH [id number] 02/09/17 INSERTION OF INFUSION DEV INTO L SUBCLAV VEIN, PERC APPROACH [id number] 02/09/17 Assessment/Plan - Problem List Patient Problems: All Active Problems NAUSEA AND VOMITING WITH DEHYDRATION (Acute) sepsis (Acute) Sepsis affecting skin (Acute) L02.91 - Assessment Assessment: * Reactive leukocytosis improving.fluctuating on antibiotics * 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 DVT proph hematologically stable Nutritional Asmnt/Malnutr-PDOC - Dietary Evaluation Malnutrition Findings (Please click <Entered> for more info): Nutritional Asmnt/Malnutrition Start: 02/14/17 13: 04 Text: Status: Complete Freq: Document 02/14/17 13:05 GSUN (Rec: 02/14/17 13:21 GSUN [id number]) Nutritional Asmnt/Malnutrition Patient General Information Nutritional Screening Moderate Risk Screening Pertinent Medical Hx/Surgical Hx Dx: Septic shock, hypotension, dehydration, metabolic acidosis improved, SU ?ATN, suspect aspiration PNA HTN, left knee prothesis, dyslipidemia, anemia Subjective Information 66 year old female, Irish speaking. Pt was receiving breathing treatment [facility]. Observed clear liquid tray at bedside. MD progress note 02/13: DC NG tube and start PO as tolerated. Spoke to STEFANIE Mayorga RN stated for breakfast pt tolerated 2 juices, declined broth, RN will remove mask and encourage lunch shortly. No significant wasting noted. 02/11 KUB: mild ielus. Current Diet Order/ Nutrition Support Clear liquid Pertinent Medications Vitamin C, Lipitor, Culturelle , Solu-Medrol, Zofran, Protonix, Nacl 0.45% Pertinent Labs 02/13: potassium 3L 02/14: BUN 30H, creatinine 1.8H (declining) Nutritional Hx/Data Height 1.68 m Height (Calculated Centimeters) 167.6 Current Weight (lbs) 75.75 kg Weight (Calculated Kilograms) 75.7 Weight (Calculated Grams) 61237.9 [place] Body Weight 130 Weight Status Overweight GI Symptoms Skin Integrity/Comment: Josias 14. Non-pitting edema bilateral feet. returner: skin tears. Estimated Nutritional Goals Calories/Kcals/Kg IBW 130lb/59.1kg Kcals Calculated 1478-1773kcal (25-30kcal/kg) Protein Calculated 59g (1g/kg) Fluid: ml 1478-1773ml (1ml/kcal) Nutritional Problem 1. Problem Problem Impaired nutrient utilization related to Etiology renal dysfunction, per MD note SU ?ATN Signs/Symptoms: BUN 30H, creatinine 1.8H Intervention/Recommendation Comments 1. Recommend advance diet as tolerated to low sodium diet, to aid in renal function. No renal restriction due to hx of hypokalemia. Expected Outcomes/Goals Expected Outcomes/Goals 1. Pt to resume diet and meet at least 75% fo estimated nutritional needs.
[2017-02-28] MEDS ORDERED: Mag Sulfate 2gm/50mL Premix 2 GM/50 ML BAG IV ONE (14:02)
--- NOTE | 2017-02-28 14:06 | General Progress Note ---
Subjective - Review of Systems Service Date: 02/28/17 Subjective: More awake, verbal, mild tachypnea, poor appetite Objective - Results Result Diagrams: 02/28/17 05:05 02/28/17 05:05 Recent Labs: Laboratory Last Values WBC 13.3 Th/cmm (4.8-10.8) H 02/28/17 05:05 Corrected WBC (auto) 52.5 Th/cmm (4.8-10.8) H* 02/19/17 09:00 RBC 3.87 Mil/cmm (3.80-5.20) 02/28/17 05:05 Hgb 10.9 gm/dL (11.7-16.1) L 02/28/17 05:05 Hct 32.1 % (35.0-45.0) L 02/28/17 05:05 MCV 82.8 fl (81-100) 02/28/17 05:05 MCH 28.2 pg (27.0-31.0) 02/28/17 05:05 MCHC Differential 34.0 pg (28.0-36.0) 02/28/17 05:05 RDW 19.4 % (11.5-20.0) 02/28/17 05:05 Plt Count 198 Th/cmm (150-400) 02/28/17 05:05 MPV 9.5 fl 02/28/17 05:05 Neutrophils % 78.4 % (40.0-80.0) 02/28/17 05:05 Band Neutrophils % 4 % (0-10) 02/27/17 06:20 Lymphocytes % 15.3 % (20.0-50.0) L 02/28/17 05:05 Monocytes % 5.5 % (2.0-10.0) 02/28/17 05:05 Eosinophils % 0.7 % (0.0-5.0) 02/28/17 05:05 Basophils % 0.1 % (0.0-2.0) 02/28/17 05:05 Neutrophils (Manual) 80 % (40-80) 02/27/17 06:20 Lymphocytes 10 % (20-50) L 02/27/17 06:20 Monocytes 6 % (2-10) 02/27/17 06:20 Eosinophils 1 % (0-5) 02/15/17 05:00 Basophils 1 % (0-3) 02/09/17 20:27 Metamyelocytes 1 % (0-0) H 02/23/17 05:40 Nucleated RBCs 1.0 % (0-0) H 02/23/17 05:40 Atypical Lymphocytes 5 % 02/25/17 05:55 Platelet Estimate ADEQUATE (NORMAL) 02/27/17 06:20 Platelet Morphology NORMAL (NORMAL) 02/24/17 05:30 Anisocytosis 1+ 02/18/17 05:55 RBC Morph Micro Appear NORMAL (NORMAL) 02/24/17 05:30 Smear Path Review REVIEWED 02/22/17 06:15 Eos Smear Source URINE 02/14/17 17:40 Eos Smear Total Cells NONE SEEN (NONE SEEN) 02/14/17 17:40 PT 15.6 SECONDS (9.5-11.5) H 02/19/17 16:04 INR 1.47 (0.5-1.4) H 02/19/17 16:04 PTT (Actin FS) 29.9 SECONDS (26.0-38.0) 02/19/17 16:04 Specimen Source Arterial 02/26/17 09:24 Sample Site Left Radial 02/26/17 09:24 pH 7.51 (7.35-7.45) H 02/26/17 09:24 pCO2 24.0 mmHg (35.0-45.0) L* 02/26/17 09:24 pO2 73.0 mmHg (80.0-100.0) L 02/26/17 09:24 HCO3 23.1 mEq/L (20.0-26.0) 02/26/17 09:24 Base Excess -2.3 mEq/L (-3.0-3.0) 02/26/17 09:24 O2 Saturation 96.0 % (92.0-100.0) 02/26/17 09:24 Robin Test PASS 02/26/17 09:24 Vent Rate 12 02/24/17 19:30 Inspired O2 21 02/26/17 09:24 Tidal Volume NA 02/24/17 19:30 PEEP NA 02/24/17 19:30 Pressure (ins/psv/peep) NA 02/24/17 19:30 Critical Value PW 02/26/17 09:24 Sodium 137 mEq/L (136-145) 02/28/17 05:05 Potassium 3.9 mEq/L (3.5-5.1) 02/28/17 05:05 Chloride 109 mEq/L (98-107) H 02/28/17 05:05 Carbon Dioxide 19.4 mEq/L (21.0-31.0) L 02/28/17 05:05 Anion Gap 12.5 (7.0-16.0) 02/28/17 05:05 BUN 29 mg/dL (7-25) H 02/28/17 05:05 Creatinine 0.8 mg/dL (0.6-1.2) 02/28/17 05:05 Est GFR ( Amer) > 60.0 ml/min (>90) 02/28/17 05:05 Est GFR (Non-Af Amer) > 60.0 ml/min 02/28/17 05:05 BUN/Creatinine Ratio 36.3 02/28/17 05:05 Glucose 105 mg/dL (70-105) 02/28/17 05:05 POC Glucose 170 MG/DL (70 - 105) H 02/12/17 09:42 Hemoglobin A1c % 5.1 % (4.0-6.0) 02/11/17 08:11 Whole Bld Lactic Acid 1.29 mmol/L (0.60-1.99) 02/16/17 05:00 Uric Acid 11.2 mg/dL (2.3-6.6) H 02/15/17 05:00 Calcium 8.2 mg/dL (8.6-10.3) L 02/28/17 05:05 Phosphorus 3.8 mg/dL (2.5-5.0) 02/15/17 05:00 Magnesium 1.4 mg/dL (1.9-2.7) L 02/27/17 06:20 Iron 48 ug/dL (27-139) 02/24/17 11:30 TIBC 145 ug/dL (250-450) L 02/24/17 11:30 Iron Saturation 33 % (15-55) 02/24/17 11:30 Unsaturated IBC 97 ug/dL (118-369) L 02/24/17 11:30 Ferritin 1770 ng/mL (15-150) H 02/24/17 11:30 Total Bilirubin 0.7 mg/dL (0.3-1.0) 02/26/17 05:35 Direct Bilirubin 0.23 mg/dL (0.0-0.2) H 02/26/17 05:35 AST 74 U/L (13-39) H 02/26/17 05:35 ALT 58 U/L (7-52) H 02/26/17 05:35 Alkaline Phosphatase 232 U/L (34-104) H 02/26/17 05:35 Creatine Kinase 67 U/L (30-223) 02/12/17 04:41 CK-MB (CK-2) 1.1 ng/mL (0.6-6.3) 02/09/17 20:27 Troponin I 0.01 ng/mL (0.01-0.05) 02/09/17 20:27 B-Natriuretic Peptide 783.0 pg/mL (5.0-100.0) H 02/24/17 05:30 Total Protein 5.3 gm/dL (6.0-8.3) L 02/26/17 05:35 Albumin 2.6 gm/dL (3.7-5.3) L 02/26/17 05:35 Globulin 2.7 gm/dL 02/26/17 05:35 Albumin/Globulin Ratio 1.0 (1.0-1.8) 02/26/17 05:35 Zojon-9-Nvrkjjgkmov 155 mg/dL (90-200) 02/24/17 11:30 Ceruloplasmin 27.9 mg/dL (19.0-39.0) 02/24/17 11:30 Amylase 23 U/L (29-103) L 02/13/17 05:03 Lipase 13 U/L (11-82) 02/13/17 05:03 Urine Source ZEE PORT 02/14/17 17:40 Urine Color YELLOW 02/14/17 17:40 Urine Clarity SLIGHT HAZY (CLEAR) 02/14/17 17:40 Urine pH 5.5 02/14/17 17:40 Ur Specific Hope 1.020 (1.005-1.030) 02/14/17 17:40 Urine Protein 100 mg/dL (NEGATIVE) H 02/14/17 17:40 Urine Glucose (UA) NEGATIVE mg/dL (NEGATIVE) 02/14/17 17:40 Urine Ketones NEGATIVE mg/dL (NEGATIVE) 02/14/17 17:40 Urine Blood MODERATE (NEGATIVE) H 02/14/17 17:40 Urine Nitrate NEGATIVE (NEGATIVE) 02/14/17 17:40 Urine Bilirubin NEGATIVE (NEGATIVE) 02/14/17 17:40 Urine Urobilinogen 0.2 E.U./dL (0.2 - 1.0) 02/14/17 17:40 Ur Leukocyte Esterase NEGATIVE (NEGATIVE) 02/14/17 17:40 Urine RBC 2-5 /hpf (0-5) 02/14/17 17:40 Urine WBC 2-5 /hpf (0-5) 02/14/17 17:40 Ur Epithelial Cells FEW /lpf (FEW) 02/14/17 17:40 Amorphous Sediment MANY URATES (NONE SEEN) 02/14/17 17:40 Urine Bacteria MODERATE /hpf (NONE SEEN) 02/14/17 17:40 Hyaline Casts 0-2 /lpf (0-2) H 02/09/17 21:05 Urine Yeast FEW /hpf (NONE SEEN) H 02/14/17 17:40 Ur Random Sodium 37 mmol/L 02/14/17 17:40 Urine Creatinine 32.9 mg/dl (Not Estab.) 02/14/17 21:55 Urine Microalbumin 332.1 ug/mL (Not Estab.) 02/14/17 21:55 Microalb/Creat Ratio 1009.4 mg/g creat (0.0-30.0) H 02/14/17 21:55 Stool Leukocyte NO WBC SEEN 02/12/17 00:05 Anti-Mitochondrial Ab 8.8 Units (0.0-20.0) 02/24/17 11:30 Smooth Muscle IgG Ab 22 Units (0-19) H 02/24/17 11:30 Hepatitis A IgM Ab Negative (Negative) 02/19/17 06:00 Hep Bs Antigen Negative (Negative) 02/19/17 06:00 Hep B Core IgM Ab Negative (Negative) 02/19/17 06:00 Hepatitis C Antibody 0.1 s/co ratio (0.0-0.9) 02/19/17 06:00 - Physical Exam Vitals and I&O: Vital Signs Temp 97.1 F 02/28/17 12:55 Pulse 107 07/24/17 12:55 Resp 20 02/28/17 12:55 BP 105/77 02/28/17 12:55 Pulse Ox 98 02/28/17 12:55 Intake & Output 02/27/17 02/28/17 02/28/17 18:59 06:59 18:59 Intake Total 480 1200 Balance 480 1200 Weight (lbs) 78.018 kg 78.245 kg Intake: Intake, IV Amount 1000 Sodium Chloride 0.9% 1, 1000 000 ml @ 100 mls/hr IV . Q10H [facility] Rx#:[id number] Oral 480 200 Other: # Voids 1 3 # Bowel Movements 1 1 Stool Characteristics Soft Soft Soft Active Medications: Current Medications Acetaminophen (Tylenol) 650 mg PO Q4HR PRN PRN Reason: TEMP >100 OR PAIN Stop: 04/11/17 15:21 Albuterol Sulfate (Albuterol 2.5mg/3ml Neb Ud) 2.5 mg HHN Q4HRT PRN PRN Reason: Wheezing Stop: 04/13/17 08:21 Last Admin: 02/24/17 17:10 Dose: 2.5 mg Albuterol/Ipratropium (Duoneb Neb) 3 ml HHN Q4HRT PATRICIA Stop: 04/25/17 18:59 Last Admin: 02/28/17 11:35 Dose: 3 ml Ascorbic Acid (Vitamin C) 500 mg PO DAILY PATRICIA Stop: 04/12/17 08:59 Last Admin: 02/28/17 08:26 Dose: Not Given Atorvastatin Calcium (Lipitor) 10 mg PO HS PATRICIA PRN Reason: Protocol Stop: 04/11/17 20:59 Last Admin: 02/27/17 21:24 Dose: 10 mg Budesonide (Pulmicort) 0.5 mg HHN BIDRT PATRICIA Stop: 04/25/17 18:59 Last Admin: 02/28/17 07:37 Dose: 0.5 mg Furosemide (Lasix) 20 mg PO DAILY PATRICIA Stop: 04/26/17 08:59 Last Admin: 02/28/17 08:26 Dose: Not Given Heparin Sodium (Porcine) (Heparin) 5,000 units SUBQ Q12HR PATRICIA Stop: 04/22/17 20:59 Last Admin: 02/28/17 08:26 Dose: Not Given Sodium Chloride (Nacl 0.45%) 1,000 mls @ 0 mls/hr IV .Q0M PATRICIA PRN Reason: KVO Stop: 04/15/17 10:13 Last Admin: 02/14/17 11:04 Dose: 10 mls/hr Sodium Chloride (Nacl 0.9%) 1,000 mls @ 100 mls/hr IV .Q10H PATRICIA Stop: 04/27/17 20:30 Last Admin: 02/27/17 21:24 Dose: 100 mls/hr Magnesium Sulfate (Magnesium Sulfate Premix) 2 gm in 50 mls @ 25 mls/hr IV X1 ONE Stop: 02/28/17 16:01 Megestrol Acetate (Megace) 40 mg PO DAILY PATRICIA PRN Reason: Protocol Stop: 04/24/17 12:59 Last Admin: 02/28/17 08:26 Dose: Not Given Miscellaneous (Probiotic Screen) 1 ea PRN PRN PRN Reason: PROTOCOL Stop: 04/12/17 09:13 Miscellaneous (Clinical Monitoring) 1 ea DAILY PRN PRN Reason: RENAL Stop: 04/19/17 12:28 Ondansetron HCl (Zofran) 4 mg IV Q8H PRN PRN Reason: Nausea / Vomiting Stop: 04/11/17 08:23 Last Admin: 02/28/17 08:32 Dose: 4 mg Pantoprazole Sodium (Protonix) 40 mg PO DAILY [facility] Stop: 04/12/17 08:59 Last Admin: 02/28/17 08:27 Dose: Not Given Potassium Chloride (Klor-Con) 20 meq PO DAILY [facility] Stop: 04/17/17 08:59 Last Admin: 02/28/17 08:27 Dose: Not Given Sodium Bicarbonate (Sodium Bicarbonate) 650 mg PO BID PATRICIA PRN Reason: Protocol Stop: 04/26/17 16:59 Last Admin: 02/28/17 08:27 Dose: Not Given Tramadol HCl (Ultram) 50 mg PO Q6HR PRN PRN Reason: Pain (Moderate) Stop: 04/26/17 16:08 Last Admin: 02/28/17 11:30 Dose: 50 mg Wound Care/Dressing Products (Therahoney) 1 appl TP DAILY [facility] Stop: 04/26/17 18:29 Last Admin: 02/28/17 10:22 Dose: Not Given General: Alert, Mild distress HEENT: Atraumatic, PERRLA, EOMI, Mucous membr. moist/pink Neck: Supple, +2 carotid pulse wo bruit Cardiovascular: Regular rate, Normal S1, Normal S2 Lungs: Other (few rhonchi) Abdomen: Bowel sounds, Soft Extremities: no Edema Neurological: Sensation intact Skin: no Rash Psych/Mental Status: Mood NL - Procedures Procedures: Procedures Procedure Code Date INSERT TUNNELED CV CATH [id number] 02/09/17 INSERTION OF INFUSION DEV INTO L SUBCLAV VEIN, PERC APPROACH [id number] 02/09/17 Assessment/Plan - Problem List Patient Problems: All Active Problems NAUSEA AND VOMITING WITH DEHYDRATION (Acute) sepsis (Acute) Sepsis affecting skin (Acute) L02.91 - Assessment Assessment: Acute kidney injury secondary to acute tubular injury Fractional excretion of sodium is 1.1% suggestive of intrinsic renal failure Shock secondary to sepsis Distended gallbladder with normal acute cholecystitis Abdominal pain secondary to ileus Ileus secondary to sepsis Acute decompensation of systolic congestive heart failure(EJF 15-20%) Respiratory failure secondary to aspiration pneumonia/CHF Anemia of chronic kidney disease Dyslipidemia Status post Infected prosthesis left knee, status post I&D respiratory alkalosis Sepsis secondary to aspiration pneumonia Worsening liver enzymes due to sepsis, medications, hypotension Acalculous Cholecystitis - Plan Plan: Lab - Result Diagrams 02/15/17 05:00 02/15/17 05:00 Current Medications Acetaminophen (Tylenol) 650 mg PO Q4HR PRN PRN Reason: TEMP >100 OR PAIN Stop: 04/11/17 15:21 Acetaminophen/Codeine Phosphate (Tylenol W/Codeine #3) 1 tab PO Q6HR PRN PRN Reason: MODERATE PAIN Stop: 04/11/17 15:21 Last Admin: 02/14/17 02:08 Dose: 1 tab Acetaminophen/Hydrocodone Bitart (Winfred 5mg/325mg) 2 tab PO Q4H PRN PRN Reason: Severe Pain Stop: 04/11/17 15:21 Last Admin: 02/15/17 00:06 Dose: 2 tab Albuterol Sulfate (Albuterol 2.5mg/3ml Neb Ud) 2.5 mg HHN Q4HRT PRN PRN Reason: Wheezing Stop: 04/13/17 08:21 Last Admin: 02/14/17 15:54 Dose: 2.5 mg Ascorbic Acid (Vitamin C) 500 mg PO DAILY PATRICIA Stop: 04/12/17 08:59 Last Admin: 02/15/17 09:33 Dose: 500 mg Atorvastatin Calcium (Lipitor) 10 mg PO HS PATRICIA PRN Reason: Protocol Stop: 04/11/17 20:59 Last Admin: 02/14/17 20:49 Dose: 10 mg Furosemide (Lasix) 40 mg IVP BID PATRICIA Stop: 04/14/17 08:59 Last Admin: 02/15/17 09:33 Dose: 40 mg Piperacillin Sod/Tazobactam (Sod 4.5 gm/ Sodium Chloride) 100 mls @ 100 mls/hr IV Q8HR PATRICIA Stop: 04/11/17 13:59 Last Admin: 02/15/17 05:23 Dose: 100 mls/hr Norepinephrine Bitartrate 8 mg (/ Dextrose) 258 mls @ 77.4 mls/hr IV TITR PRN; Protocol; 40 MCG/MIN PRN Reason: BP MAINTENANCE (PER PROTOCOL) Stop: 04/12/17 07:46 Last Admin: 02/15/17 01:45 Dose: 5.16 mcg/min, 9.98 mls/hr Diltiazem HCl 125 mg/ Dextrose 125 mls @ 10 mls/hr IV TITR PATRICIA; 10 MG/HR PRN Reason: Protocol Stop: 04/15/17 04:29 Last Titration: 02/15/17 10:18 Dose: Infused Sodium Chloride (Nacl 0.45%) 1,000 mls @ 0 mls/hr IV .Q0M PATRICIA PRN Reason: KVO Stop: 04/15/17 10:13 Last Admin: 02/14/17 11:04 Dose: 10 mls/hr Lactobacillus Rhamnosus (Culturelle) 1 each PO DAILY PATRICIA Stop: 04/13/17 08:59 Last Admin: 02/15/17 09:33 Dose: 1 each Methylprednisolone Sodium Succinate (Solu-Medrol) 20 mg IVP Q8HR PATRICIA Stop: 04/14/17 12:59 Last Admin: 02/15/17 05:23 Dose: 20 mg Miscellaneous (Probiotic Screen) 1 ea MC PRN PRN PRN Reason: PROTOCOL Stop: 04/12/17 09:13 Ondansetron HCl (Zofran) 4 mg IV Q8H PRN PRN Reason: Nausea / Vomiting Stop: 04/11/17 08:23 Last Admin: 02/12/17 00:59 Dose: 4 mg Pantoprazole Sodium (Protonix) 40 mg PO DAILY PATRICIA Stop: 04/12/17 08:59 Last Admin: 02/15/17 09:32 Dose: 40 mg Kidney function better with a BUN/creatinine of 29/0.9, off dialysis, close to baseline Chest x-ray left PNA, but no anayeli CHF Continue gentle diuresis Off Levophed Monitor electrolytes and CBC along with chest x-ray White count down to 13.7 Liver enzymes slightly improved Echo revealed ejection fraction 15-20% with RVSP of 24.5, consider AICD, Bivent pacer On Zosyn Replace magnesium ` Nutritional Asmnt/Malnutr-PDOC - Dietary Evaluation Malnutrition Findings (Please click <Entered> for more info): Nutritional Asmnt/Malnutrition Start: 02/14/17 13: 04 Text: Status: Complete Freq: Document 02/14/17 13:05 GSUN (Rec: 02/14/17 13:21 GSUN [id number]) Nutritional Asmnt/Malnutrition Patient General Information Nutritional Screening Moderate Risk Screening Pertinent Medical Hx/Surgical Hx Dx: Septic shock, hypotension, dehydration, metabolic acidosis improved, SU ?ATN, suspect aspiration PNA HTN, left knee prothesis, dyslipidemia, anemia Subjective Information 66 year old female, Uzbek speaking. Pt was receiving breathing treatment during [facility] visit. Observed clear liquid tray at bedside. progress note 02/13: DC NG tube and start PO as tolerated. Spoke to STEFANIE Mayorga RN stated for breakfast pt tolerated 2 juices, declined broth, RN will remove mask and encourage lunch shortly. No significant wasting noted. 02/11 KUB: mild ielus. Current Diet Order/ Nutrition Support Clear liquid Pertinent Medications Vitamin C, Lipitor, Culturelle , Solu-Medrol, Zofran, Protonix, Nacl 0.45% Pertinent Labs 02/13: potassium 3L 02/14: BUN 30H, creatinine 1.8H (declining) Nutritional Hx/Data Height 1.68 m Height (Calculated Centimeters) 167.6 Current Weight (lbs) 75.75 kg Weight (Calculated Kilograms) 75.7 Weight (Calculated Grams) 68956.9 [place] Body Weight 130 Weight Status Overweight GI Symptoms Skin Integrity/Comment: Josias 14. Non-pitting edema bilateral feet. 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 Estimated Nutritional Goals Calories/Kcals/Kg IBW 130lb/59.1kg Kcals Calculated 1478-1773kcal (25-30kcal/kg) Protein Calculated 59g (1g/kg) Fluid: ml 1478-1773ml (1ml/kcal) Nutritional Problem 1. Problem Problem Impaired nutrient utilization related to Etiology renal dysfunction, per MD note SU ?ATN Signs/Symptoms: BUN 30H, creatinine 1.8H Intervention/Recommendation Comments 1. Recommend advance diet as tolerated to low sodium diet, to aid in renal function. No renal restriction due to hx of hypokalemia. Expected Outcomes/Goals Expected Outcomes/Goals 1. Pt to resume diet and meet at least 75% fo estimated nutritional needs.
== END 2017-02-28 16:15 | disposition home or self-care (01) | DRG 871 ==
LOC: ER 17:26 → ICU 23:30 → TELE 02-16 16:30
PROVIDERS: ADMIT Internal Medicine; ATTEND Internal Medicine
PROC: 5A1D60Z (ICD-10-PCS; 2017-02-19)
PROC: 05H633Z Insertion of Infusion Device into Left Subclavian Vein, Percutaneous Approach (ICD-10-PCS; principal; 2017-02-20)
PROC: B547ZZA Ultrasonography of Left Subclavian Vein, Guidance (ICD-10-PCS; 2017-02-20)
PROC: 5A09357 Assistance with Respiratory Ventilation, Less than 24 Consecutive Hours, Continuous Positive Airway Pressure (ICD-10-PCS; 2017-02-24)
DX: A41.9 Sepsis, unspecified organism (principal); R65.21 Severe sepsis with septic shock; N17.0 Acute kidney failure with tubular necrosis; J96.90 Respiratory failure, unspecified, unspecified whether with hypoxia or hypercapnia; J69.0 Pneumonitis due to inhalation of food and vomit; K56.7 Ileus, unspecified; N28.1 Cyst of kidney, acquired; I50.21 Acute systolic (congestive) heart failure; I11.0 Hypertensive heart disease with heart failure; K81.9 Cholecystitis, unspecified; E78.5 Hyperlipidemia, unspecified; E86.0 Dehydration; E87.6 Hypokalemia; S81.802A Unspecified open wound, left lower leg, initial encounter; D63.1 Anemia in chronic kidney disease; D47.3 Essential (hemorrhagic) thrombocythemia; Z95.1 Presence of aortocoronary bypass graft; Z79.899 Other long term (current) drug therapy; Z96.652 Presence of left artificial knee joint
CPT/HCPCS: 36415-UA; 36600-90; 71010-TC; 73560-TC-LT; 74000-TC; 76700-TC; 78226-TC; 80048-TC; 80053-TC; 80074-90; 80076-TC; 81001-TC; 81015-TC; 82043-90; 82103-90; 82150-TC; 82390-90; 82550-TC; 82553; 82570-TC; 82728-90; 82784-90; 82803-TC; 82948-90; 83036-90; 83516-90; 83540-90; 83550-90; 83605; 83690-TC; 83735-TC; 83880-TC; 84100-TC; 84300-TC; 84484-TC; 84550-TC; 85007-TC; 85025-TC; 85027-TC; 85610-TC; 85730-TC; 86255-90; 87230-TC; 89055-TC; 90779; 90799; 93005; 94640; 94660; 94760; 96375; 96379; 97530; A9537; C1751; J1644; J1940; J2370; J2405; J2543; J2920; J3475; J3480; J7030; J7040; J7070; J7613; P9046; X3904; X6452; Z7610